=== PATIENT | female | born 1965 | race Caucasian/White ===

== ENCOUNTER 2020-09-16 10:45 | Emergency (ER) | payer MEDICAID, SELFPAY ==
[2020-09-16 10:57] VITALS: BP 155/89; PULSE 83; RESP 17; TEMP 36.4; O2SAT 98; BMI 38.2
--- NOTE | 2020-09-16 10:58 | ED.BACK ---
HPI - Back Pain/Injury General Chief Complaint: Back Pain/Injury Stated Complaint: BACK PAIN Time Seen by Provider: 09/16/20 10:56 Source: patient Mode of arrival: ambulatory Limitations: no limitations History of Present Illness HPI Narrative: PATIENT PRESENTS TO THE ED FOR LOWER BACK PAIN EXACERBATION. PATIENT STATES HISTORY OF BACK ARTHRITIS. PATIENT DENIES ANY RECENT TRAUMA. PATIENT STATES NO URINARY OR BOWEL INCONTINENCE. PATIENT DENIES ANY ABDOMINAL PAIN, NAUSEA, VOMITING, FEVER, CHILLS, FLANK PAIN, DYSURIA, OR HEMATURIA. PATIENT STATES SHE IS ALREADY ON TYLENOL, TRAMADOL, AND LIDOCAINE PATCH FOR HER BACK PAIN RELIEF. PATIENT STATES SHE HAS A REFERRAL TO PAIN MANAGEMENT BUT NEVER FOLLOWED UP. Related Data Allergies Allergy/AdvReac Type Severity Reaction Status Date / Time No Known Allergies Allergy Verified 09/16/20 11:00 [No Known Allergies*] Pt states no food/mdication Allergy Unknown Unknown Uncoded 09/16/20 11:00 al Review of Systems Review of Systems: Yes all other systems are reviewed and are negative Constitutional: Constitutional: Reports as per HPI and Reports no additional constitutional complaints Eyes: Eyes: Reports as per HPI and Reports no additional eye complaints ENT: Reports system reviewed and no additional complaints, except as documented and Reports as per HPI Cardiovascular: Cardiovascular: Reports as per HPI and Reports no additional cardiovascular complaints Respiratory: Respiratory: Reports as per HPI and Reports no additional respiratory complaints Gastrointestinal: Gastrointestinal: Reports as per HPI and Reports no additional gastrointestinal complaints Musculoskeletal: Musculoskeletal: Reports no additional musculoskeletal complaints, Reports as per HPI and Reports back pain Neurologic: Reports system reviewed and no additional complaints, except as documented and Reports as per HPI Psychiatric: Psychiatric: Reports no additional psychiatric complaints and Reports as per HPI [facility] Past Medical History Medical History (Updated 09/16/20 @ 11:[address]) Arthritis Asthma Social History Social History Advance Directives: No Advance Directives Information Provided: No Physical Exam Vital Signs: Vital Signs: Vital Signs Temp Pulse Resp BP Pulse Ox 09/16/20 10:57 97.6 F 83 17 155/89 H 98 Body Mass Index 38.2 Const: General: cooperative, healthy appearing, comfortable, no acute distress, well developed, alert, awake and Physically active Orientation/consciousness: patient oriented x3 HENMT: Head: Yes normal to inspection Eyes: General: appearance normal, both eyes and all related structures Neck: Neck: Yes normal visual inspection, Yes full ROM, Yes no lymphadenopathy and Yes no meningeal signs Chest: Chest palpation & inspection: normal inspection of the chest, normal palpation of entire chest wall and no localized rib tenderness Resp: Effort & Inspection: normal respiratory effort, able to speak in complete sentences, normal respiratory pattern, no audible wheezes, no cough, respiratory effort not decreased, no grunting, not labored, no nasal flaring and no paradoxical thoraco-abdom movements Auscultation: clear to auscultation bilaterally, no crackles, no rales, no rhonchi, no wheezes and breath sounds present Percussion: percussion normal Cardio: Jugular venous distension: no JVD Heart sounds: S1 normal heart sound present and S2 normal heart sound present GI: Inspection: Yes normal to inspection, No abdominal wall ecchymosis and No Abdominal wall edema Palpation (GI): Soft to palpation, not firm, nontender, no guarding and not rigid : General: No CVA tenderness and Yes no CVA tenderness Back/Spine/Pelvis: Back: no CVA tenderness, No CVA tenderness and back tenderness (lumbar tenderness.) Skin: General skin exam: no rashes or lesions noted Neuro: General: patient oriented x3, gait normal, no meningeal signs and CN's II-XI intact bilaterally Cranial nerves: Yes CN's II-XII intact bilaterally Extrem: General: Yes normal to inspection and Yes full ROM Psych: Appearance: grossly normal, well kempt and not disheveled Course Course Course Narrative: NO NEED FOR IMAGING. PATIENT HAS CHRONIC BACK PAIN. NEGATIVE FOR ANY RECENT TRAUMA. HISTORY PHYSICAL EXAM DOES NOT INDICATE URINARY/ BOWEL INCONTINENCE. PATIENT WILL BE GIVEN PAIN MEDICATION. Reevaluation(s) Reevaluation #1: PATIENT GIVEN TORADOL INJECTION. PATIENT WOULD NOT BE DISCHARGED WITH ANY OTHER PAIN MEDS. PATIENT INFORMED TO FOLLOW-UP WITH A REFERRAL TO PAIN MANAGEMENT. Patient already has tylenol, monthly tramadol, and lidocaine patch at home. Time: 11:03 MDM - Back Pain/Injury MDM Narrative Medical decision making narrative: CHRONIC BACK PAIN EXACERBATION Discharge Plan Discharge Clinical Impression: Lumbar radiculopathy Patient Disposition: Elopement Instructions: Lumbar Radiculopathy (ED) Additional Instructions: RETURN TO THE ED FOR ANY HEADACHE, NAUSEA, VOMITING, DYSURIA, HEMATURIA, FLANK PAIN, FEVER, CHILLS, URINARY / BOWEL INCONTINENCE, PARALYSIS OF LOWER EXTREMITIES, OR ANY OTHER CONCERNING SYMPTOMS. Tylenol/tramadol, and lidocaine patch as prescribed. Please follow-up with your referral to pain management. Referrals: Naty Warner NP [Primary Care Provider] - 2 days ( Chronic back pain exacerbation. Patient already on Tylenol, tramadol, lidocaine patch. Recommend referral to pain management clinic) Interventions: ED Discharge Assessment Last Done: 09/16/20 11:22 Discharge Date/Time: 09/16/20 11:22 Print Language: Yoruba
[2020-09-16] MEDS: Ketorolac Tromethamine 60 MG/2 ML VIAL IM (11:03)
== END 2020-09-16 11:22 | disposition left against medical advice (07) ==
PROVIDERS: Emergency Provider Emergency Medicine; PCP Nurse Practitioner Family
DX: M54.16 Radiculopathy, lumbar region (principal); M54.5 Low back pain
CPT/HCPCS: 96372; 99283; 99284; J1885

== ENCOUNTER 2020-10-18 09:33 | Outpatient (REF) | payer MEDICAID, SELFPAY ==
[2020-10-18 10:07] LABS: MANUAL DIFF FLAG NO
[2020-10-18 10:18] LABS: Basophils Percent Auto 0.4 % (0-2); Eosinophils Absolute Auto 0.2 X10*3/uL (0.0-0.4); Eosinophils Percent Auto 2.8 % (0-4); Hematocrit 38.2 % (37-47); Imm Gran Abs Auto 0.03 X10*3/uL (0.00-0.03); Imm Gran Pct Auto 0.4 % (0.0-0.4); Lymphocytes Absolute Auto 2.7 X10*3/uL (1.2-4.9); Lymphocytes Percent Auto 38.8 % (20-40); Mean Corpuscular Hemoglobin 31.3 pg (27.0-33.0); Mean Corpuscular Volume 91.8 fL (80-98); Monocytes Absolute Auto 0.8 X10*3/uL (0.1-1.2); Monocytes Percent Auto 11.9 % (2-11); Neutrophils Absolute Auto 3.2 X10*3/uL (2.0-8.3); Neutrophils Percent Auto 45.7 % (45-73); Platelet Count 253 X10*3/uL (160-400); Red Blood Count 4.16 X10*6/uL (4.20-5.50); Red Cell Distribution Width 12.4 % (11.0-16.0); White Blood Count 7.1 X10*3/uL (4.8-10.8)
[2020-10-18 10:30] LABS: Estimated Average Glucose 120 mg/dL; Hemoglobin A1c % 5.8 %
[2020-10-18 11:08] LABS: Alanine Aminotransferase 16 U/L (0-31); Albumin Level 4.2 g/dL (3.5-5.0); Alkaline Phosphatase 68 U/L (39-117); Anion Gap 9 (12-20); Aspartate Amino Transferase 23 U/L (5-31); Bilirubin Total 0.5 mg/dL (0.0-1.0); Blood Urea Nitrogen 17 mg/dL (9-16); C Reactive Protein 0.29 mg/dL (< or = 0.50); Calcium 9.4 mg/dL (8.4-10.2); Carbon Dioxide 33 mmol/L (22-29); Chloride 101 mmol/L (96-108); Cholesterol 213 mg/dL; Estimated Glomerular Filt Rate > 60; Glucose Random 122 mg/dL (60-115); HDL Cholesterol 42 mg/dL; LDL Cholesterol Calculated 138 mg/dl; Potassium 4.2 mmol/l (3.3-5.1); Sodium 139 mmol/L (135-145); Total Protein 7.1 g/dL (6.5-8.0); Triglycerides 166 mg/dL
[2020-10-18 11:12] LABS: Thyroid Stimulating Hormone 0.95 uIU/mL (0.32-4.0); Vitamin D 25-OH Total 23.3 ng/mL (>30)
[2020-10-18 11:30] LABS: Vitamin B12 222 pg/mL (200-900)
[2020-10-18 12:13] LABS: Creatinine Urine 131.04 mg/dL; Microalbum/Creatinine Ratio Ur 7.6 ug/mg cr
== END 2020-10-18 09:34 | disposition home or self-care (01) ==
LOC: HO.LAB 09:33
PROVIDERS: PCP Nurse Practitioner Family; Visit Provider Nurse Practitioner Family
DX: E03.9 Hypothyroidism, unspecified (principal); E11.9 Type 2 diabetes mellitus without complications; E78.00 Pure hypercholesterolemia, unspecified; I10 Essential (primary) hypertension; M05.70 Rheumatoid arthritis with rheumatoid factor of unspecified site without organ or systems involvement; R12 Heartburn
CPT/HCPCS: 36415; 80053; 80061; 82043; 82306; 82607; 83036; 84443; 85025; 86140

== ENCOUNTER 2021-04-07 19:35 | Emergency (ER) | payer MEDICAID, SELFPAY ==
--- NOTE | 2021-04-07 19:36 | ED.ALCOHOL ---
HPI - Alcohol General Chief Complaint: Psychiatric Symptoms Stated Complaint: ETOH Time Seen by Provider: 04/07/21 19:46 Source: patient, EMS and litigation partner Mode of arrival: EMS Limitations: other (ETOH intoxication) History of Present Illness HPI narrative: ETOH tonight, drank a lot of vodka could not stand, patient now suicidal in ED and upset MD complaint: alcohol intoxication Last drink: Just prior to admission Chronic alcohol use: No Previous visits for alcohol intoxication: No Recent trauma: No Associated symptoms: nausea Treatments prior to arrival: none Related Data Allergies Allergy/AdvReac Type Severity Reaction Status Date / Time No Known Allergies Allergy Verified 04/07/21 19:53 [No Known Allergies*] Pt states no food/mdication Allergy Unknown Unknown Uncoded 09/16/20 11:00 al Review of Systems Review of Systems: ROS unable to be obtained due to altered mental status PMFSH Past Medical History Attestation statement: The following information was validated with the patient. Medical History Arthritis Asthma Social History Social History (Updated 04/07/21 @ 19:56 by Shannan Tam DO) Alcohol intake: never Smoking Status: Never smoker Advance Directives: No Advance Directives Information Provided: Yes Physical Exam Vital Signs: Vital Signs: Last Vital Signs Pulse 72 04/07/21 19:42 Resp 20 04/07/21 19:42 BP 118/80 04/07/21 19:42 Pulse Ox 97 04/07/21 19:42 Body Mass Index 32.8 Appearance: Alert. Oriented X3. No acute distress. ETOH odor, slurred speech, crying Eyes: Pupils equal, round and reactive to light. ENT: Pharynx normal. Neck: Normal inspection. Neck supple. CVS: Normal heart rate and rhythm. Pulses normal. Respiratory: No respiratory distress. Breath sounds normal. Abdomen: Soft and nontender. Skin: Skin warm and dry. Normal skin color. Normal skin turgor. Extremities: No lower extremity edema. No calf ttp Neuro: Oriented X 3. No motor deficit. No sensory deficit. Psych: tearful, SI Course Course Course Narrative: Physician observation started at 1114pm Patient placed in physician observation because the patient needed more time for clinical sobriety and possible BHN evaluation if she remains suicidal when sober. At the time observation was started the patient's vitals were stable, patient is alert and oriented calm at this time, Neuro: nonfocal, CV RRR, Lungs clear Physician observation ended at 1241am Patient more sober, adamantly denies SI, family aware no concerns, patient has no prior attempts likely related to ETOH, the patient is currently embarrassed right now. Plan is to follow up with therapist tomorrow. NAD, lungs clear, CV RRR, Abd nontender, Neuro intact. Disposition is for home. MDM - Alcohol MDM Narrative Medical decision making narrative: 55 yo female with ETOH tonight now c/o depression and SI - will obtain labs, BHN consult but suspect that this is mostly ETOH driven Lab Data Result diagrams: 04/07/21 20:50 04/07/21 20:50 Labs: Lab Results 04/07/21 04/07/21 04/07/21 Range/Units 20:50 20:50 20:50 WBC 8.2 (4.8-10.8) X10*3/uL RBC 4.01 L (4.20-5.50) X10*6/uL Hgb 12.6 (12.0-16.0) g/dl Hct 36.4 L (37-47) % MCV 90.8 (80-98) fL MCH 31.4 (27.0-33.0) pg MCHC 34.6 (31.0-35.0) g/dl RDW 12.8 (11.0-16.0) % Plt Count 246 (160-400) X10*3/uL MPV 10.6 (9.4-12.3) fL Immature Gran % (Auto) 0.4 (0.0-0.4) % Neut % (Auto) 47.2 (45-73) % Lymph % (Auto) 39.8 (20-40) % [place] % (Auto) 8.1 (2-11) % Eos % (Auto) 4.1 H (0-4) % Baso % (Auto) 0.4 (0-2) % Lymph # (Auto) 3.3 (1.2-4.9) X10*3/uL [place] # (Auto) 0.7 (0.1-1.2) X10*3/uL Eos # (Auto) 0.3 (0.0-0.4) X10*3/uL Baso # (Auto) 0.0 (0.0-0.2) X10*3/uL Abs Immat Gran (auto) 0.03 (0.00-0.03) X10*3/uL Absolute Neuts (auto) 3.9 (2.0-8.3) X10*3/uL Absolute Nucleated RBC 0.000 (0.0-0.012) X10*3/uL Nucleated RBC % (auto) 0.0 (0.0-0.2) /100WBC Sodium 134 L (135-145) mmol/L Potassium 3.4 (3.3-5.1) mmol/L Chloride 98 (96-108) mmol/L Carbon Dioxide 22 (22-29) mmol/L Anion Gap 17 (12-20) BUN 11 (9-16) mg/dL Creatinine 0.75 (0.5-1.4) mg/dL Estim Creat Clear Calc 101.4 Estimated GFR > 60 Random Glucose 155 H (60-115) mg/dL Calcium 8.9 (8.4-10.2) mg/dL Urine Opiates Screen (Not Detect) Ur Barbiturates Screen (Not Detect) Ur Phencyclidine Scrn (Not Detect) Ur Amphetamines Screen (Not Detect) U Benzodiazepines Scrn (Not Detect) Urine Cocaine Screen (Not Detect) U Marijuana (THC) Screen (Not Detect) Ethyl Alcohol 254 mg/dL COVID-19 (JUAN) (Negative) COVID-19 Clin Com 04/07/21 04/07/21 Range/Units 20:57 23:33 WBC (4.8-10.8) X10*3/uL RBC (4.20-5.50) X10*6/uL Hgb (12.0-16.0) g/dl Hct (37-47) % MCV (80-98) fL MCH (27.0-33.0) pg MCHC (31.0-35.0) g/dl RDW (11.0-16.0) % Plt Count (160-400) X10*3/uL MPV (9.4-12.3) fL Immature Gran % (Auto) (0.0-0.4) % Neut % (Auto) (45-73) % Lymph % (Auto) (20-40) % [place] % (Auto) (2-11) % Eos % (Auto) (0-4) % Baso % (Auto) (0-2) % Lymph # (Auto) (1.2-4.9) X10*3/uL [place] # (Auto) (0.1-1.2) X10*3/uL Eos # (Auto) (0.0-0.4) X10*3/uL Baso # (Auto) (0.0-0.2) X10*3/uL Abs Immat Gran (auto) (0.00-0.03) X10*3/uL Absolute Neuts (auto) (2.0-8.3) X10*3/uL Absolute Nucleated RBC (0.0-0.012) X10*3/uL Nucleated RBC % (auto) (0.0-0.2) /100WBC Sodium (135-145) mmol/L Potassium (3.3-5.1) mmol/L Chloride (96-108) mmol/L Carbon Dioxide (22-29) mmol/L Anion Gap (12-20) BUN (9-16) mg/dL Creatinine (0.5-1.4) mg/dL Estim Creat Clear Calc Estimated GFR Random Glucose (60-115) mg/dL Calcium (8.4-10.2) mg/dL Urine Opiates Screen Not Detected (Not Detect) Ur Barbiturates Screen Not Detected (Not Detect) Ur Phencyclidine Scrn Not Detected (Not Detect) Ur Amphetamines Screen Not Detected (Not Detect) U Benzodiazepines Scrn Not Detected (Not Detect) Urine Cocaine Screen Not Detected (Not Detect) U Marijuana (THC) Screen Not Detected (Not Detect) Ethyl Alcohol mg/dL COVID-19 (JUAN) Negative (Negative) COVID-19 Clin Com See Note Discharge Plan Discharge Clinical Impression: Alcohol intoxication Patient Disposition: Home, Self-Care Instructions: Abuse of Alcohol (ED) Additional Instructions: return to ED for any worsening symptoms or concerns Print Language: Slovenian
[2021-04-07 19:42] VITALS: BP 118/80; PULSE 72; RESP 20; O2SAT 97; BMI 32.8
--- NOTE | 2021-04-07 20:53 | PC.NURSE ---
RN was able to successfully obtain required/ordered labs without issue. rn remains at bedside for continued obs
[2021-04-07 21:05] LABS: MANUAL DIFF FLAG NO
[2021-04-07 21:06] LABS: Basophils Percent Auto 0.4 % (0-2); Eosinophils Absolute Auto 0.3 X10*3/uL (0.0-0.4); Eosinophils Percent Auto 4.1 % (0-4); Hematocrit 36.4 % (37-47); Hemoglobin 12.6 g/dl (12.0-16.0); Imm Gran Abs Auto 0.03 X10*3/uL (0.00-0.03); Imm Gran Pct Auto 0.4 % (0.0-0.4); Lymphocytes Absolute Auto 3.3 X10*3/uL (1.2-4.9); Lymphocytes Percent Auto 39.8 % (20-40); Mean Corpuscular HGB Conc 34.6 g/dl (31.0-35.0); Mean Corpuscular Hemoglobin 31.4 pg (27.0-33.0); Mean Corpuscular Volume 90.8 fL (80-98); Mean Platelet Volume 10.6 fL (9.4-12.3); Monocytes Absolute Auto 0.7 X10*3/uL (0.1-1.2); Monocytes Percent Auto 8.1 % (2-11); Neutrophils Absolute Auto 3.9 X10*3/uL (2.0-8.3); Neutrophils Percent Auto 47.2 % (45-73); Platelet Count 246 X10*3/uL (160-400); Red Blood Count 4.01 X10*6/uL (4.20-5.50); Red Cell Distribution Width 12.8 % (11.0-16.0); White Blood Count 8.2 X10*3/uL (4.8-10.8)
[2021-04-07 21:34] LABS: COVID-19 Test Negative (Negative); IDNOW Serial# 9DD0AD1C
[2021-04-07 21:37] LABS: Ethanol 254 mg/dL
[2021-04-07 21:39] LABS: Anion Gap 17 (12-20); Blood Urea Nitrogen 11 mg/dL (9-16); Calcium 8.9 mg/dL (8.4-10.2); Carbon Dioxide 22 mmol/L (22-29); Chloride 98 mmol/L (96-108); Creatinine Clr Calc Pharmacy 101.4; Estimated Glomerular Filt Rate > 60; Glucose Random 155 mg/dL (60-115); Potassium 3.4 mmol/L (3.3-5.1); Sodium 134 mmol/L (135-145)
[2021-04-08 00:36] LABS: Amphetamine Screen Urine Not Detected (Not Detect); Barbiturates, Urine Not Detected (Not Detect); Benzodiazepines Screen Urine Not Detected (Not Detect); Cannabinoid Screen Urine Not Detected (Not Detect); Cocaine Screen Urine Not Detected (Not Detect); Opiate Screen Urine Not Detected (Not Detect); Phencyclidine Screen Urine Not Detected (Not Detect)
--- NOTE | 2021-04-08 00:41 | PC.NURSE ---
Pt requesting to go home despite multiple attempts at education from this RN. Pt advised that due to her initial SI statements she is unable to just walk out or sign herself out without MD approval. Pt states that she feels fine and wants to go home. this RN notifed MD Tam. This RN spoke with the patient's daughter zunilda per MD request to determine patient's history and bh background. Pt's daughter confirmed that the pt does not have a SI/HI background although she confirms that she believes the patient sees a therapist regularly. Rn to bedside with staff nurse anesthetist and pt declined SI/HI and reported feel safe at home. MD tam agreeable to discarge home as daughter agreeable to pick pulling machine operator the patient ot provide her a sober ride home.
[2021-04-08 00:51] VITALS: BP 140/78; PULSE 68; RESP 18; TEMP 37.2; O2SAT 100
== END 2021-04-08 01:05 | disposition home or self-care (01) ==
PROVIDERS: Emergency Provider Emergency Medicine
DX: F10.129 Alcohol abuse with intoxication, unspecified (principal); Y90.8 Blood alcohol level of 240 mg/100 ml or more; Z20.822 Contact with and (suspected) exposure to COVID-19; Z79.899 Other long term (current) drug therapy; Z71.41 Alcohol abuse counseling and surveillance of alcoholic
CPT/HCPCS: 36415; 80048; 80307; 80320; 85025; 87635; 99284

== ENCOUNTER 2021-05-30 20:12 | Emergency (ER) | payer MEDICAID, SELFPAY ==
[2021-05-30 20:28] VITALS: BP 139/75; PULSE 70; RESP 18; TEMP 36.8; O2SAT 99; BMI 38.2
--- NOTE | 2021-05-30 22:47 | ED.EXTPRO ---
HPI - Extremity Problem General Chief complaint: Extremity Problem Stated complaint: Left arm pain Time Seen by Provider: 05/30/21 22:47 Source: patient and installers mechanical Mode of arrival: ambulatory History of Present Illness HPI Narrative: 55-year-old female with history arthritis and carpal tunnel presents with pain starting at the left base of her neck and extending across the left shoulder with stated numbness, tingling into the left upper extremity. Patient denies any recent travel, shortness of breath, chest pain/palpitations, recent cough or sore throat. Related Data Previous Rx's Medication Instructions Recorded cyclobenzaprine 5 mg PO BEDTIME PRN #3 tab 05/31/21 Allergies Allergy/AdvReac Type Severity Reaction Status Date / Time No Known Allergies Allergy Verified 04/07/21 19:53 [No Known Allergies*] Pt states no food/mdication Allergy Unknown Unknown Uncoded 09/16/20 11:00 al Review of Systems Review of Systems: Pertinent positives and negatives as stated in HPI 10 point review of systems is otherwise negative. [facility] Past Medical History Source: nursing notes reviewed Medical History Arthritis Asthma Social History Social History Alcohol intake: never Advance Directives: No Advance Directives Information Provided: Yes Patient : No Physical Exam Vital Signs: Vital Signs: Last Vital Signs Temp 98.3 F 05/30/21 20:28 Pulse 70 05/30/21 20:28 Resp 18 05/30/21 20:28 BP 139/75 05/30/21 20:28 Pulse Ox 99 05/30/21 20:28 Body Mass Index 38.2 VITAL SIGNS: Reviewed. GENERAL: Well developed, well nourished, in no acute distress. HEAD: Normocephalic/atraumatic EYES: PERRLA, EOMI OROPHARYNX: no oral lesions noted, posterior pharynx clear NECK: Supple, no adenopathy, Spurling's positive, noted muscle spasm along left neck base extending into left trapezius LUNGS: Normal breath sounds. No adventitious sounds or accessory muscle use. SpO2<99> CARDIOVASCULAR: Regular rate and rhythm without noted murmurs ABDOMEN: Soft, non-tender, non-distended with bowel sounds. No rigidity. No guarding. No palpable masses or hernias noted Left upper extremity: Full range of motion noted at the shoulder, elbow, wrist, sensation is fully intact, hand salt washer 5/5, capillary refill less than 3 seconds, palpable radial/ulnar pulses SKIN: Inspection of the skin reveals no rashes NEUROLOGIC: Alert and oriented x 4. Strength and sensation to light touch were grossly intact x 4. Course Course Course Narrative: 55-year-old female with history and clinical presentation most consistent with cervical radiculopathy and no clinical suspicion for PE, cardiopulmonary etiology. On re-evaluation patient has had good improvement of her symptoms and will be discharged home in stable condition with instructions to follow up her primary care provider and discuss possible physical therapy. Discharge Plan Discharge Clinical Impression: Cervical radiculopathy, Muscle spasm Patient Disposition: Home, Self-Care Instructions: Cervical Radiculopathy (ED), Muscle Spasm (ED) Additional Instructions: 1. Tylenol 1000 mg, por v?a oral, cada 6 horas seg?n sea necesario para controlar el dolor. No exceda los 4000 mg en 24 horas. 2. Ibuprofeno 400 mg, por v?a oral con leche o alimentos, cada 6 horas seg?n sea necesario para controlar el dolor. Recomiende usar esto en combinaci?n con Tylenol para un mayor alivio de los s?ntomas. 3. Recomiende el uso de parches de lidoca?na, estos est?n disponibles en todos los [facility] / [facility] / [facility], apl?quelos en el ?solomon de m?xima sensibilidad andrew se indica en el empaque exterior. 4. Allen un seguimiento con palacio proveedor de atenci?n primaria en los pr?ximos 2-3 d?as para elijah reevaluaci?n y un tratamiento ambulatorio adicional. Regrese a la jennifer de emergencias si los s?ntomas empeoran. Prescriptions: New cyclobenzaprine 5 mg tablet 5 mg PO BEDTIME PRN (Reason: muscle spasm) Qty: 3 RF: 0 Referrals: Physician,Unknown [Primary Care Provider] - 2 days Print Language: Greek
[2021-05-30] MEDS: Lidocaine 4 % Patch ADH..PATCH 1 PATCH TRANSDERMA (23:28)
[2021-05-30] MEDS: Ketorolac Tromethamine 15 MG/ML VIAL IM (23:29)
[2021-05-30] MEDS: Acetaminophen 325 MG TABLET 975 MG PO (23:29)
[2021-05-30] MEDS: Cyclobenzaprine HCl 5 MG TABLET PO (23:29)
== END 2021-05-31 00:46 | disposition home or self-care (01) ==
PROVIDERS: Emergency Provider Student in an Organized Health Care Education/Training Program
DX: M54.12 Radiculopathy, cervical region (principal); M62.838 Other muscle spasm
CPT/HCPCS: 96372; 99283; 99284; J1885

== ENCOUNTER 2021-08-31 08:33 | Outpatient (REF) | payer MEDICAID, SELFPAY ==
--- NOTE | ~2021-08-31 | MM_ITS ---
EXAMINATION: MM SCREENING DIGITAL BREAST TOMOSYNTHESIS, BILATERAL CLINICAL INFORMATION: Screening. Asymptomatic. The lifetime risk of breast cancer based on the Tyrer-Cuzick Model is 6%. COMPARISON: Mammography: 03/09/2018, 02/18/2017, 09/04/2015 TECHNIQUE: Digital breast tomosynthesis is performed in both the craniocaudal and mediolateral oblique views along with computer-aided detection (CAD). Synthesized 2D images are generated from the tomosynthesis. FINDINGS: There are scattered areas of fibroglandular density (ACR BI-RADS breast composition Category b). Parenchymal pattern is similar to prior exams. There are no significant masses, abnormal calcifications, or other abnormalities. There is no developing density or architectural abnormality. No abnormal calcifications. No significant changes. MM/MM tomosynthesis screening BI IMPRESSION: No mammographic evidence of malignancy. ASSESSMENT: BI-RADS 1: Negative RECOMMENDATION: Routine annual mammography screening. This patient's information was entered into a reminder system with a target due date for their next mammogram.
== END 2021-08-31 08:34 | disposition home or self-care (01) ==
LOC: HO.MAMMO 08:33
PROVIDERS: PCP Internal Medicine; Visit Provider Internal Medicine
DX: Z12.31 Encounter for screening mammogram for malignant neoplasm of breast (principal)
CPT/HCPCS: 77063; 77067

== ENCOUNTER 2021-09-24 10:28 | Emergency (ER) | payer MEDICAID, SELFPAY ==
[2021-09-24 11:33] VITALS: BP 138/76; PULSE 74; RESP 16; TEMP 36.1; O2SAT 99; BMI 38.2
--- NOTE | 2021-09-24 13:13 | ED.EXTPRO ---
HPI - Extremity Problem General Chief complaint: Extremity Injury, Upper Stated complaint: lt arm pain Time Seen by Provider: 09/24/21 13:13 History of Present Illness HPI Narrative: Patient with history of chronic neck pain complains of flare up of left-sided neck pain radiating to left arm similar to prior, there is no weakness no new injury no fever Related Data Previous Rx's Medication Instructions Recorded cyclobenzaprine 5 mg tablet 5 mg PO BEDTIME PRN #3 tab 05/31/21 oxycodone 5 mg tablet 5 mg PO Q6H PRN #10 tab 09/24/21 Allergies Allergy/AdvReac Type Severity Reaction Status Date / Time No Known Allergies Allergy Verified 04/07/21 19:53 [No Known Allergies*] Pt states no food/mdication Allergy Unknown Unknown Uncoded 09/16/20 11:00 al Review of Systems Review of Systems: Positive for neck pain Negatives are no fever no chills no dizziness or weakness no headache no chest pain no shortness of breath no abdominal pain no changes to bowel or bladder no numbness or weakness Yes all other systems are reviewed and are negative [facility] Past Medical History Source: nursing notes reviewed Medical History Arthritis Asthma Social History Social History Alcohol intake: never Advance Directives: No Physical Exam Vital Signs: Vital Signs: Last Vital Signs Temp 96.9 F 09/24/21 11:33 Pulse 74 09/24/21 11:33 Resp 18 09/24/21 13:30 BP 138/76 09/24/21 11:33 Pulse Ox 99 09/24/21 11:33 Body Mass Index 38.2 General appearance no acute distress Head is normocephalic atraumatic The left side of the neck had soft tissue paraspinal tenderness there is no bony tenderness there is good range of motion in the head and the neck and there was tenderness in the trapezius Chest is clear to auscultation bilateral The heart no murmur Extremities full range of motion x4 including left shoulder and left arm The left arm was neurovascular intact with a normal symmetric pulse and normal color Neuro no focal motor sensory deficits Course Course Course Narrative: Chronic pain patient was a script for tramadol and requested a short course of oxycodone was informed that if he has a contract this might undo her contract I did write for 10 oxycodone but strongly advised her to call her primary doctor and if he approves she will fill the prescription and she agreed if he does not want her to get it she will not fill the prescription Exam did not reveal any gross deficit of sensation or motor strength and she was discharged Discharge Plan Discharge Clinical Impression: Cervical radiculopathy Patient Disposition: Home, Self-Care Additional Instructions: I wrote a prescription for oxycodone as her tramadol is not sufficient for this pain in your neck But very important because you have a contract with her doctor you need to call the primary doctor before filling the oxycodone prescription or he may cancel your contract for narcotics Return any time if worse Follow with primary doctor Prescriptions: New oxycodone 5 mg tablet 5 mg PO Q6H PRN (Reason: pain) Qty: 10 RF: 0 No Action cyclobenzaprine 5 mg tablet 5 mg PO BEDTIME PRN (Reason: muscle spasm) Qty: 3 RF: 0 Interventions: ED Discharge Assessment Last Done: 09/24/21 13:31 Discharge Date/Time: 09/24/21 13:38
[2021-09-24] MEDS: Ketorolac Tromethamine 15 MG/ML VIAL 30 MG IM (13:28)
[2021-09-24 13:30] VITALS: RESP 18
== END 2021-09-24 13:38 | disposition home or self-care (01) ==
PROVIDERS: Emergency Provider Emergency Medicine; PCP Internal Medicine
DX: M54.12 Radiculopathy, cervical region (principal); M54.2 Cervicalgia; G89.29 Other chronic pain; Z79.891 Long term (current) use of opiate analgesic
CPT/HCPCS: 96372; 99283; 99284; J1885

== ENCOUNTER 2021-09-26 00:43 | Emergency (ER) | payer MEDICAID, SELFPAY ==
--- NOTE | 2021-09-26 | ECG_ITS ---
Test Reason : cp Blood Pressure : / mmHG Vent. Rate : 065 BPM Atrial Rate : 065 BPM P-R Int : 166 ms QRS Dur : 104 ms QT Int : 412 ms P-R-T Axes : 028 -19 015 degrees QTc Int : 428 ms Normal sinus rhythm RSR' or QR pattern in V1 suggests right ventricular conduction delay Nonspecific T wave abnormality Anterior leads Abnormal ECG When compared with ECG of 08-APR-2018 02:32, Nonspecific T wave abnormality now evident in Anterior leads Referred By: Generic ED Physician Electronically Signed By:CARITO PALOMARES MD
--- NOTE | ~2021-09-26 | XR_ITS ---
EXAMINATION: XR CHEST CLINICAL INFORMATION: Chest wall pain COMPARISON: 10/30/2014 TECHNIQUE: 2 views of the chest were obtained. FINDINGS: Lung volumes are low. Central vascular prominence without overt edema. No dense consolidation. No effusion. No pneumothorax. The cardiomediastinal silhouette is within normal limits. No acute osseous abnormality. XR/XR chest 2V IMPRESSION: No consolidation. Central vascular prominence without overt edema.
[2021-09-26 02:20] VITALS: BP 148/68; PULSE 73; RESP 18; TEMP 36.8; O2SAT 99; BMI 38.3
--- NOTE | 2021-09-26 03:54 | ED.GENADULT ---
HPI - General Adult General Chief complaint: General Medical Stated complaint: back and chest pain Time Seen by Provider: 09/26/21 03:54 Source: patient and diplomatic interpreter/translator Mode of arrival: ambulatory History of Present Illness HPI narrative: 55-year-old female without significant past medical history who presents with left shoulder pain that radiates up into the left neck that has not been associated with a traumatic event, fevers, chills, cardiac type chest pain. In addition, patient denies any shortness of breath, new cough, recent travel and states this is been ongoing for weeks. Related Data Previous Rx's Medication Instructions Recorded cyclobenzaprine 5 mg tablet 5 mg PO BEDTIME PRN #3 tab 05/31/21 oxycodone 5 mg tablet 5 mg PO Q6H PRN #10 tab 09/24/21 Allergies Allergy/AdvReac Type Severity Reaction Status Date / Time No Known Allergies Allergy Verified 09/26/21 02:11 [No Known Allergies*] Pt states no food/mdication Allergy Unknown Unknown Uncoded 09/26/21 02:11 al Review of Systems Review of Systems: For positives and negatives as stated in HPI 10 point review of systems is otherwise negative. PMFSH Past Medical History Source: nursing notes reviewed Medical History Arthritis Asthma Social History Social History Alcohol intake: never Advance Directives: No Advance Directives Information Provided: Yes Physical Exam Vital Signs: Vital Signs: Last Vital Signs Temp 98.3 F 09/26/21 02:20 Pulse 73 09/26/21 02:20 Resp 18 09/26/21 02:20 BP 148/68 H 09/26/21 02:20 Pulse Ox 99 09/26/21 02:20 Body Mass Index 38.3 VITAL SIGNS: Reviewed. GENERAL: Well developed, well nourished, in no acute distress. HEAD: Normocephalic/atraumatic EYES: PERRLA, EOMI OROPHARYNX: no oral lesions noted, posterior pharynx clear NECK: Supple, no adenopathy LUNGS: Normal breath sounds. No adventitious sounds or accessory muscle use. SpO2<99> CARDIOVASCULAR: Regular rate and rhythm without noted murmurs ABDOMEN: Soft, non-tender, non-distended with bowel sounds. LEFT UPPER EXTREMITY: No deformities noted, neurovascular is intact, full range of motion at shoulder/elbow/wrist, capillary refill less than 3 seconds, noted muscle spasm across left shoulder and into neck but Spurling's negative SKIN: Inspection of the skin reveals no rashes NEUROLOGIC: Alert and oriented x 4. Strength and sensation to light touch were grossly intact x 4. Course Course Course Narrative: 55-year-old female with history and clinical presentation consistent with musculoskeletal with likely muscle spasm contributing to patient's symptoms. And on review of all investigations there are no acute findings to suggest cardiopulmonary etiology on reassessment after patient received combination analgesics and lidocaine patch patient endorses that she does feel somewhat better and is agreeable to follow-up with her primary care provider for for re-evaluation and further outpatient management. Medical Decision Making Lab Data Labs: Lab Results 09/26/21 Range/Units 04:19 Troponin I High Sens < 3.5 (<3.5-17.0) ng/L Discharge Plan Discharge Clinical Impression: Muscle spasm Patient Disposition: Home, Self-Care Instructions: Muscle Spasm (ED) Additional Instructions: 1. Reanude todos los medicamentos caseros seg?n lo prescrito. 2. Tylenol 1000 mg, por v?a oral, cada 6 horas seg?n sea necesario para controlar el dolor. No exceda los 4000 mg en 24 horas. 3. Ibuprofeno 400 mg, por v?a oral con leche o alimentos, cada 6 horas seg?n sea necesario para controlar el dolor. Puede corrine esto junto con Tylenol para un mayor alivio de los s?ntomas. 4. Parche de lidoca?na, est? disponible sin receta y se puede aplicar en el ?solomon de m?xima sensibilidad andrew se indica en el empaque exterior. Allen un seguimiento con palacio proveedor de atenci?n primaria a primera hora de la ma?daniel. Regrese a la jennifer de emergencias por un empeoramiento namita de los s?ntomas. Prescriptions: No Action cyclobenzaprine 5 mg tablet 5 mg PO BEDTIME PRN (Reason: muscle spasm) Qty: 3 RF: 0 oxycodone 5 mg tablet 5 mg PO Q6H PRN (Reason: pain) Qty: 10 RF: 0 Referrals: [facility] [Primary Care Provider] - 2 days Print Language: Turkmen
[2021-09-26] MEDS: Ketorolac Tromethamine 15 MG/ML VIAL IM (04:08)
[2021-09-26] MEDS: Lidocaine 4 % Patch ADH..PATCH 1 PATCH TRANSDERMA (04:09)
[2021-09-26] MEDS: Acetaminophen 325 MG TABLET 975 MG PO (04:09)
[2021-09-26 05:12] LABS: Troponin-I High Sensitivity < 3.5 ng/L (<3.5-17.0)
== END 2021-09-26 06:09 | disposition home or self-care (01) ==
PROVIDERS: Emergency Provider Student in an Organized Health Care Education/Training Program
DX: M62.838 Other muscle spasm (principal)
CPT/HCPCS: 36415; 71046; 84484; 93005; 96372; 99284; J1885

== ENCOUNTER 2021-10-10 07:12 | Emergency (ER) | payer MEDICAID, SELFPAY ==
[2021-10-10 07:16] VITALS: BP 159/87; PULSE 78; RESP 20; TEMP 36.6; O2SAT 97; BMI 38.2
--- NOTE | 2021-10-10 07:20 | ECG_ITS ---
Test Reason : CHEST PAIN Blood Pressure : / mmHG Vent. Rate : 074 BPM Atrial Rate : 074 BPM P-R Int : 164 ms QRS Dur : 100 ms QT Int : 388 ms P-R-T Axes : 020 -21 029 degrees QTc Int : 430 ms Normal sinus rhythm Incomplete right bundle branch block Left axis deviation Abnormal ECG When compared with ECG of 26-SEP-2021 02:26, No significant change was found Referred By: Generic ED Physician Electronically Signed By:CARITO PALOMARES MD
--- NOTE | 2021-10-10 07:45 | ED.CHESTPAIN ---
HPI - Chest Pain General Chief Complaint: Chest Pain Stated Complaint: neck pain Time Seen by Provider: 10/10/21 07:45 Source: patient Mode of arrival: ambulatory Limitations: no limitations History of Present Illness HPI narrative: neck, shoulder, upper chest down the left arm. The patient has had the pain for years. She is here because she could not sleep, she has neck pain with movement. Denies fever, denies recent trauma. Patient with long history of fibromyalgia. patient does not have chest pain this is more shoulder and neck pain. Onset (ago): year(s) Timing of current episode: constant Pain radiation: left arm, neck and left shoulder Severity: mild Quality: aching Related Data Previous Rx's Medication Instructions Recorded cyclobenzaprine 5 mg tablet 5 mg PO BEDTIME PRN #3 tab 05/31/21 oxycodone 5 mg tablet 5 mg PO Q6H PRN #10 tab 09/24/21 cyclobenzaprine 10 mg tablet 10 mg PO TID #10 tab 10/10/21 naproxen 500 mg tablet (Naprosyn) 500 mg PO BID #20 tab 10/10/21 Allergies Allergy/AdvReac Type Severity Reaction Status Date / Time No Known Allergies Allergy Verified 09/26/21 02:11 [No Known Allergies*] Pt states no food/mdication Allergy Unknown Unknown Uncoded 09/26/21 02:11 al Review of Systems Constitutional: Constitutional: Reports no additional constitutional complaints Eyes: Eyes: Reports no additional eye complaints ENT: Denies dizziness Cardiovascular: Cardiovascular: Reports no additional cardiovascular complaints Respiratory: Respiratory: Reports as per HPI Gastrointestinal: Gastrointestinal: Reports no additional gastrointestinal complaints Genitourinary: Genitourinary: Reports no additional female genitourinary complaints Musculoskeletal: Musculoskeletal: Reports no additional musculoskeletal complaints Integumentary/Breasts: Skin/Breast: Denies rash Neurologic: Reports system reviewed and no additional complaints, except as documented, Denies dizziness and Denies Sensory deficit (Neuro) Psychiatric: Psychiatric: Denies anxiety [facility] Past Medical History Medical History Arthritis Asthma Social History Social History Alcohol intake: never Advance Directives: No Patient : No Physical Exam Vital Signs: Vital Signs: Last Vital Signs Temp 98 F 10/10/21 07:16 Pulse 78 10/10/21 07:16 Resp 20 10/10/21 07:16 BP 159/87 H 10/10/21 07:16 Pulse Ox 97 10/10/21 07:16 Body Mass Index 38.2 Const: General: healthy appearing Nutritional Appearance: obese Orientation/consciousness: oriented to person and patient oriented x3 Limitations: no limitations HENMT: Head: Yes normal to inspection Ears: external ears normal General nose exam: Normal external nose present Mouth: Normal oral and palatal mucosa present and oropharynx normal Throat: Yes posterior oropharynx normal Eyes: General: appearance normal, both eyes and all related structures Neck: Other: left trapezius and left sternocleidomastoid tenderness, with some pain with movement Chest: Chest palpation & inspection: normal inspection of the chest Resp: Auscultation: clear to auscultation bilaterally Cardio: Jugular venous distension: no JVD Rate: regular rate Rhythm: regular rhythm Heart sounds: S1 normal heart sound present and S2 normal heart sound present GI: Inspection: Yes normal to inspection Palpation (GI): Soft to palpation, nontender and No hepatosplenomegaly present Auscultation: normal bowel sounds : General: Yes no CVA tenderness Back/Spine/Pelvis: Back: no CVA tenderness Skin: General skin exam: no rashes or lesions noted Neuro: General: oriented to person and patient oriented x3 Cranial nerves: Yes CN's II-XII intact bilaterally Motor exam (neuro): 5/5 motor strength present throughout Sensory Exam: No Sensory deficit (Neuro) Extrem: Other: shoulder and arm with FROM tenderness to the muscles, good radial and ulnar and brachialis tenderness. General: Yes normal to inspection Psych: Appearance: grossly normal Course Reevaluation(s) Reevaluation #1: patient with long history of muscular skeletal pain with restart NSAIDS and flexeril and dc home Time: 07:56 MDM - Chest Pain ECG Data ECG #1: Attestation: I personally reviewed and interpreted this ECG as follows: Interpretation: sinus 75, no st or twave changes Discharge Plan Discharge Clinical Impression: Acute torticollis Chronic shoulder pain Qualifiers: Laterality: left Qualified Code(s): M25.512 - Pain in left shoulder Patient Disposition: Home, Self-Care Instructions: Shoulder Pain (ED), Neck Pain (ED) Prescriptions: New cyclobenzaprine 10 mg tablet 10 mg PO TID Qty: 10 RF: 0 naproxen [Naprosyn] 500 mg tablet 500 mg PO BID Qty: 20 RF: 0 No Action cyclobenzaprine 5 mg tablet 5 mg PO BEDTIME PRN (Reason: muscle spasm) Qty: 3 RF: 0 oxycodone 5 mg tablet 5 mg PO Q6H PRN (Reason: pain) Qty: 10 RF: 0 Referrals: [facility] [Primary Care Provider] - 1 week
[2021-10-10] MEDS: Cyclobenzaprine HCl 10 MG TABLET PO (08:03)
[2021-10-10] MEDS: Ketorolac Tromethamine 60 MG/2 ML VIAL IM (08:03)
== END 2021-10-10 08:43 | disposition home or self-care (01) ==
PROVIDERS: Emergency Provider Emergency Medicine
DX: M43.6 Torticollis (principal); M25.512 Pain in left shoulder; R07.9 Chest pain, unspecified; M54.2 Cervicalgia; M79.7 Fibromyalgia; Z79.899 Other long term (current) drug therapy
CPT/HCPCS: 93005; 96372; 99283; 99284; J1885

== ENCOUNTER 2021-10-11 01:36 | Emergency (ER) | payer MEDICAID, SELFPAY ==
[2021-10-11 01:59] VITALS: BP 160/81; PULSE 81; RESP 20; TEMP 36.7; O2SAT 96; BMI 35.5
--- NOTE | 2021-10-11 02:02 | ED.EXTPRO ---
HPI - Extremity Problem General Chief complaint: Extremity Injury, Upper Stated complaint: shoulder pain from early still consistent Time Seen by Provider: 10/11/21 02:02 Source: patient and family Mode of arrival: ambulatory History of Present Illness HPI Narrative: patient history of fibromyalgia chronic muscular pain for years been seen by different physicians was seen yesterday for same was given Flexeril naproxen patient comes back as pain is still there complaining of pain all over the upper back radiating to the neck unable to sleep no trauma no motor weakness/ paresthesia Related Data Previous Rx's Medication Instructions Recorded cyclobenzaprine 5 mg tablet 5 mg PO BEDTIME PRN #3 tab 05/31/21 oxycodone 5 mg tablet 5 mg PO Q6H PRN #10 tab 09/24/21 cyclobenzaprine 10 mg tablet 10 mg PO TID #10 tab 10/10/21 naproxen 500 mg tablet (Naprosyn) 500 mg PO BID #20 tab 10/10/21 diazepam 5 mg tablet (Valium) 5 mg PO BEDTIME PRN #14 tab 10/11/21 tramadol 50 mg tablet 50 mg PO Q6H PRN #20 tab 10/11/21 Allergies Allergy/AdvReac Type Severity Reaction Status Date / Time No Known Allergies Allergy Verified 09/26/21 02:11 [No Known Allergies*] Pt states no food/mdication Allergy Unknown Unknown Uncoded 09/26/21 02:11 al Review of Systems Review of Systems: Yes all other systems are reviewed and are negative PMFSH Past Medical History Medical History Arthritis Asthma Social History Social History Alcohol intake: never Advance Directives: No Advance Directives Information Provided: Yes Physical Exam Vital Signs: Vital Signs: Last Vital Signs Temp 98.1 F 10/11/21 01:59 Pulse 81 10/11/21 01:59 Resp 20 10/11/21 01:59 BP 160/81 H 10/11/21 01:59 Pulse Ox 96 10/11/21 01:59 Body Mass Index 35.5 Const: General: comfortable and no acute distress Orientation/consciousness: patient oriented x3 HENMT: Head: Yes normocephalic and Yes atraumatic Neck: Neck images: 1. tenderness right trapezius muscle Resp: Effort & Inspection: normal respiratory effort Auscultation: clear to auscultation bilaterally Cardio: Palpation: normal PMI Rate: regular rate Rhythm: regular rhythm Heart sounds: S1 normal heart sound present and S2 normal heart sound present GI: Inspection: Yes normal to inspection Palpation (GI): Soft to palpation and nontender Back/Spine/Pelvis: Back/spine/pelvis image: 1. diffuse tenderness right rhomboids area Neuro: General: patient oriented x3 and no focal motor deficits Discharge Plan Discharge Clinical Impression: Fibromyalgia Patient Disposition: Home, Self-Care Instructions: Fibromyalgia (ED) Additional Instructions: continue medications as prescribed and start taking tramadol and Valium follow-up with PCP/physical therapist Prescriptions: New tramadol 50 mg tablet 50 mg PO Q6H PRN (Reason: pain) Qty: 20 RF: 0 diazepam [Valium] 5 mg tablet 5 mg PO BEDTIME PRN (Reason: muscle spasm) Qty: 14 RF: 0 No Action cyclobenzaprine 5 mg tablet 5 mg PO BEDTIME PRN (Reason: muscle spasm) Qty: 3 RF: 0 oxycodone 5 mg tablet 5 mg PO Q6H PRN (Reason: pain) Qty: 10 RF: 0 cyclobenzaprine 10 mg tablet 10 mg PO TID Qty: 10 RF: 0 naproxen [Naprosyn] 500 mg tablet 500 mg PO BID Qty: 20 RF: 0 Interventions: ED Discharge Assessment Last Done: 10/11/21 02:51 Discharge Date/Time: 10/11/21 02:52
[2021-10-11] MEDS: diazePAM 5 MG TABLET PO (02:31)
[2021-10-11] MEDS: dexAMETHasone 2 MG TABLET 10 MG PO (02:31)
[2021-10-11] MEDS: traMADoL HCL 50 MG TABLET PO (02:31)
== END 2021-10-11 02:52 | disposition home or self-care (01) ==
PROVIDERS: Emergency Provider Internal Medicine
DX: M79.7 Fibromyalgia (principal); M25.511 Pain in right shoulder
CPT/HCPCS: 99283; J8540

== ENCOUNTER 2021-10-11 12:04 | Emergency (ER) | payer MEDICAID, SELFPAY ==
[2021-10-11 12:07] VITALS: BP 159/89; PULSE 103; RESP 20; TEMP 36.7; O2SAT 98; BMI 39.4
--- NOTE | 2021-10-11 15:02 | ED_ITS ---
HPI - General Adult General Chief complaint: General Medical Stated complaint: pill stuck in throat, diff breathing Time Seen by Provider: 10/11/21 14:52 Source: patient and holter technician Mode of arrival: ambulatory Limitations: language barrier History of Present Illness HPI narrative: 55 yo with history of fibromyalgia here with complaint of feeling of pill stuck in throat. Patient tells me that she was seen here at 02:00 o'clock this morning for a fibromyalgia flare. She was discharged home with tramadol and Valium. She took a dose of 1 of the medications this morning 08:00 does not recall the name of the medicine. Since then she feels like it is stuck in her throat. She feels like she is having difficulty breathing because of the sensation of it being in her throat. Patient denies any history of difficulty swallowing or food getting stuck. She has previously had an endoscopy but does not know the findings of it. Related Data Previous Rx's Medication Instructions Recorded cyclobenzaprine 5 mg tablet 5 mg PO BEDTIME PRN #3 tab 05/31/21 oxycodone 5 mg tablet 5 mg PO Q6H PRN #10 tab 09/24/21 cyclobenzaprine 10 mg tablet 10 mg PO TID #10 tab 10/10/21 naproxen 500 mg tablet (Naprosyn) 500 mg PO BID #20 tab 10/10/21 diazepam 5 mg tablet (Valium) 5 mg PO BEDTIME PRN #14 tab 10/11/21 tramadol 50 mg tablet 50 mg PO Q6H PRN #20 tab 10/11/21 Allergies Allergy/AdvReac Type Severity Reaction Status Date / Time No Known Allergies Allergy Verified 10/11/21 12:07 [No Known Allergies*] Pt states no food/mdication Allergy Unknown Unknown Uncoded 09/26/21 02:11 al Review of Systems Review of Systems: Yes all other systems are reviewed and are negative Constitutional: Constitutional: Reports no additional constitutional complaints, Denies body ache(s), Denies chills, Denies fever(s), Denies headache(s) and Denies weakness Eyes: Eyes: Reports no additional eye complaints and Denies change in vision ENT: Reports system reviewed and no additional complaints, except as documented, Denies dizziness, Denies headache(s), Denies nasal congestion, Denies nasal discharge and Denies neck pain Cardiovascular: Cardiovascular: Reports no additional cardiovascular complaints, Denies chest pain, Denies leg edema and Denies dyspnea Respiratory: Respiratory: Reports no additional respiratory complaints, Denies cough and Denies dyspnea Gastrointestinal: Gastrointestinal: Reports no additional gastrointestinal complaints, Denies abdominal pain, Denies diarrhea, Denies nausea and Denies vomiting Genitourinary: Genitourinary: Reports no additional female genitourinary complaints and Denies urinary incontinence Musculoskeletal: Musculoskeletal: Reports no additional musculoskeletal complaints, Denies back pain, Denies arthralgias, Denies joint swelling, Denies neck pain, Denies numbness and Denies tingling Integumentary/Breasts: Skin/Breast: Reports system reviewed and no additional complaints, except as docu and Denies rash Neurologic: Reports system reviewed and no additional complaints, except as documented, Denies Abnormal speech present, Denies dizziness, Denies headache(s), Denies numbness, Denies tingling and Denies weakness PMFSH Past Medical History Attestation statement: The following information was validated with the patient. Source: old records reviewed and nursing notes reviewed Medical History Arthritis Asthma Social History Social History Alcohol intake: never Advance Directives: No Physical Exam Vital Signs: Vital Signs: Last Vital Signs Temp 98.1 F 10/11/21 12:07 Pulse 103 H 10/11/21 12:07 Resp 20 10/11/21 12:07 BP 159/89 H 10/11/21 12:07 Pulse Ox 98 10/11/21 12:07 Body Mass Index 39.4 Const: General: cooperative, healthy appearing, comfortable and no acute distress Orientation/consciousness: patient oriented x3 Limitations: no limitations HENMT: Other: No stridor no drooling, swallowing secretions with no difficulty Head: Yes normal to inspection Ears: hearing grossly normal bilaterally and TM's normal bilaterally General nose exam: Normal external nose present Face and sinus: Yes normal facial exam Mouth: Normal oral and palatal mucosa present Throat: Yes posterior oropharynx normal, Yes tonsils normal and Yes uvula midline Eyes: General: appearance normal, both eyes and all related structures Pupils: Equal, round and reactive pupils present Neck: Neck: Yes normal visual inspection, Yes full ROM and Yes no lymphadenopathy Chest: Chest palpation & inspection: normal inspection of the chest Resp: Effort & Inspection: normal respiratory effort Auscultation: clear to auscultation bilaterally Cardio: Rate: regular rate Rhythm: regular rhythm Peripheral pulses: Peripheral pulses 2+ throughout GI: Inspection: Yes normal to inspection Palpation (GI): Soft to palpation and nontender Auscultation: normal bowel sounds Back/Spine/Pelvis: Thoracic/Lumbar Spine: thoracic and lumbar spine normal to inspection Skin: General skin exam: no rashes or lesions noted Neuro: General: patient oriented x3, no focal motor deficits and normal sensation to monofilament Cranial nerves: Yes Equal, round and reactive pu pils present Cognition (Neuro): normal cognition Speech: No Abnormal speech present Gait exam (Neuro): Normal gait present Motor exam (neuro): 5/5 motor strength present throughout Extrem: General: Yes normal to inspection, Yes no pedal edema and Yes no calf tenderness Course Course Course Narrative: 55-year-old female here with complaint of feeling like pill is stuck in her throat after taking either a Valium or tramadol at 08:00 o'clock this morning. Patient is speaking full sentences. She is tolerating her secretions well no difficulty. Her vitals are stable. I explained to the patient imaging is not warranted as it likely would be negative even if there is a pill that is there in her esophagus. I explained with time it will dissolve. in the meantime we can offer supportive care. Will give Maalox and lidocaine. 1650- patient feels improved after receiving Maalox and lidocaine. Will plan for discharge home. Reviewed worrisome signs and symptoms of when to return to the emergency department. Comfortable discharge home. Discharge Plan Discharge Clinical Impression: Esophageal foreign body Patient Disposition: Home, Self-Care Instructions: Esophageal Foreign Body (ED) Additional Instructions: with time the pill will dissolve increase fluids follow-up with primary care as needed if you continue to have difficulty swallowing thing you should follow-up with a tear down man Prescriptions: No Action cyclobenzaprine 5 mg tablet 5 mg PO BEDTIME PRN (Reason: muscle spasm) Qty: 3 RF: 0 oxycodone 5 mg tablet 5 mg PO Q6H PRN (Reason: pain) Qty: 10 RF: 0 cyclobenzaprine 10 mg tablet 10 mg PO TID Qty: 10 RF: 0 naproxen [Naprosyn] 500 mg tablet 500 mg PO BID Qty: 20 RF: 0 tramadol 50 mg tablet 50 mg PO Q6H PRN (Reason: pain) Qty: 20 RF: 0 diazepam [Valium] 5 mg tablet 5 mg PO BEDTIME PRN (Reason: muscle spasm) Qty: 14 RF: 0 Referrals: [facility] [Primary Care Provider] - 2 days Interventions: ED Discharge Assessment Last Done: 10/11/21 16:42 Discharge Date/Time: 10/11/21 16:43 Print Language: Italian
[2021-10-11] MEDS: Lidocaine HCl Viscous 2 % 15 ML SOLUTION MUCOUS MEM (15:34)
[2021-10-11] MEDS: Magnesium Hydrox/Alum Hydrox 30 ML ORAL.SUSP PO (15:35)
== END 2021-10-11 16:43 | disposition home or self-care (01) ==
PROVIDERS: Emergency Provider Emergency Medicine
DX: T18.198A Other foreign object in esophagus causing other injury, initial encounter (principal); X58.XXXA Exposure to other specified factors, initial encounter
CPT/HCPCS: 99283

== ENCOUNTER 2023-04-21 11:23 | Outpatient (REF) | payer MEDICAID, SELFPAY ==
--- NOTE | ~2023-04-21 | MM_ITS ---
EXAMINATION: MM SCREENING DIGITAL BREAST TOMOSYNTHESIS, BILATERAL CLINICAL INFORMATION: Screening. Asymptomatic. The lifetime risk of breast cancer based on the Tyrer-Cuzick Model is 8%. COMPARISON: Mammography: 08/31/2021, 03/09/2018, 02/18/2017 TECHNIQUE: Digital breast tomosynthesis is performed in both the craniocaudal and mediolateral oblique views along with computer-aided detection (CAD). Synthesized 2D images are generated from the tomosynthesis. FINDINGS: There are scattered areas of fibroglandular density (ACR BI-RADS breast composition Category b). There are no significant masses, abnormal calcifications, or other abnormalities. Parenchymal pattern is similar to prior studies. There is no developing density or architectural abnormality. The axilla and skin contours are unremarkable. No significant changes. MM/MM tomosynthesis screening BI IMPRESSION: No mammographic evidence of malignancy. ASSESSMENT: BI-RADS 1: Negative RECOMMENDATION: Routine annual mammography screening. This patient's information was entered into a reminder system with a target due date for their next mammogram.
== END 2023-04-21 11:24 | disposition home or self-care (01) ==
LOC: HO.MAMMO 11:23
PROVIDERS: PCP Internal Medicine; Visit Provider Internal Medicine
DX: Z12.31 Encounter for screening mammogram for malignant neoplasm of breast (principal)
CPT/HCPCS: 77063; 77067

== ENCOUNTER 2023-07-22 08:15 | Outpatient (AMB) | payer MEDICAID, SELFPAY ==
--- NOTE | 2023-07-22 08:19 | A.OFFVIS_ITS ---
Intake Vital Signs 07/22/23 08:21 Height 5 ft 5 in Weight 224 lb 10.417 oz BMI 37.4 BP 114/68 Blood Pressure Location Rt brachial Position Sitting Pulse 79 Pulse Source Pulse Oximeter Temp 97.3 F Temp Source Skin Pulse Oximetry (%) 97 Intake Visit Reasons: RA Intake Note: * New pt presents today for RA consult. * C/o pain everywhere. * She states she also has fibromyalgia. Panelboard Operator Required: Yes Panelboard Operator Name: Rosalba Cristobal [id number] Information Interpreted: clinical only Accompanied by: Self / Same As Patient Allergies No Known Allergies [No Known Allergies*] Allergy (Verified 07/22/23 08:31) Medication List - Last Reconciled 07/22/23 by Juma Reddy MD albuterol sulfate 90 mcg/actuation (Ventolin HFA) 2 puffs inhalation Q6H PRN aspirin 81 mg PO DAILY cholecalciferol (vitamin D3) (Vitamin D3) 50 mcg PO QAM cyclobenzaprine 5 mg PO Q8H PRN diclofenac sodium 1% 2 grams topical QID ferrous sulfate (FeroSul) 325 mg PO BID hydrochlorothiazide 25 mg PO DAILY levothyroxine 200 mcg PO DAILY lidocaine 5% 0 patches topical lisinopril 5 mg PO QAM loratadine 10 mg PO DAILY PRN paroxetine HCl 20 mg PO DAILY prednisolone acetate 1% 1 drp ophthalmic-Right QID rosuvastatin 10 mg PO BEDTIME sennosides (senna) 8.6 mg PO PRN sodium chloride 0.65% (Deep Sea Nasal) 2 sprays intranasal tramadol 50 mg PO Q6H PRN triamcinolone acetonide 0.1% topical BID zolpidem 10 mg PO BEDTIME PRN HPI HPI Comments History of Present Illness Details This is a 57-year-old female with a past medical history of rheumatoid arthritis who presents as a new patient. Back in 2014 patient was found to have positive rheumatoid factor and anti CCP in high titers. She was on methotrexate in the past and patient had stopped methotrexate without worsening of her symptoms. She has history of bilateral carpal tunnel syndrome since 2006 but she refused surgery. Patient continues to have diffuse pain everywhere. The majority of her pain is in her lower back with intermittent radiation to her lower extremities. She has numbness of her fingers especially the left index. She has morning stiffness lasting 30 minutes. [facility] Medical History (Updated 07/22/23 @ 09:23 by Juma Reddy MD) Acquired hypothyroidism Anxiety and depression Asthma Bilateral carpal tunnel syndrome Cervical radiculopathy Essential hypertension Fibromyalgia Lumbar radiculopathy Rheumatoid arthritis involving multiple sites with positive rheumatoid factor Sjogren's syndrome Type 2 diabetes mellitus Surgical History H/O gastric bypass Hx of cataract extraction No history of previous surgery Family History Mother Arthritis Father No problems noted. Other Medical history unknown Social History Household Members: None Alcohol intake: never Patient Tobacco Use Status: Never used Tobacco Current occupational status: disabled Female Reproductive History Menstrual Total pregnancies: 4 Full term: 3 Number of Living Children: 2 Ab induced: 1 Review of Systems Eyes Reports itchy eyes Musc Reports back pain, Reports arthralgias, Reports joint swelling, Reports limited range of motion, Reports numbness, Reports radiating pain into limb, Reports stiffness and Reports tingling Neuro Reports numbness and Reports tingling Psych Reports abnormal sleep pattern and Reports anxiety Aller/Immun Reports itchy eyes Physical Exam Vital Signs: Last Vital Signs Temp 97.3 F 07/22/23 08:21 Pulse 79 07/22/23 08:21 BP 114/68 07/22/23 08:21 Pulse Ox 97 07/22/23 08:21 BMI result Body Mass Index 37.4 Const General: cooperative, healthy appearing and comfortable Nutritional Appearance: obese morbidly obese Orientation/consciousness: patient oriented x3 Limitations: no limitations HEENT Head: Yes normocephalic and Yes atraumatic Mouth: moist mucous membranes Resp Effort & Inspection: normal respiratory effort and able to speak in complete sentences Auscultation: clear to auscultation bilaterally Cardio Rate: regular rate Rhythm: regular rhythm GI Palpation (GI): Soft to palpation and nontender Neuro General: patient oriented x3 Extrem Other: Mild osteoarthritic changes of both hands without swollen joints No wrist pain with full flexion and extension Left 2nd MCP tenderness Few tender DIPs Positive straight leg raise test on the right Mild bilateral knee pain with full flexion Left 3rd through 5th MTP tenderness Negative MTP squeeze test bilaterally Left ankle tenderness without warmth or swelling Results Reviewed Results Reviewed: Labs 2014 RF 90 (<15) CCP >250 14.3.3 >20 (<0.2) SSa 6.9 (<1.0) SSb -ve TPO +++ Thyroglobulin +++ DsDNA negative C3 and C4 normal Assessment & Plan Assessment & Plan (1) Cyclic citrullinated peptide (CCP) antibody positive: Code(s): R76.8 - Other specified abnormal immunological findings in serum Plan: This is a 57-year-old female who presents for evaluation of rheumatoid arthritis. She was diagnosed with rheumatoid arthritis more than 10 years ago and was on methotrexate for some time. She stopped her methotrexate years ago without worsening of her symptoms. She has positive anti CCP antibody in high titers and positive rheumatoid factor and high titers in the past. There is no significant synovitis upon evaluation today. Will check x-rays to evaluate for erosive disease. Check labs to evaluate disease activity (2) Lumbar radiculopathy: Code(s): M54.16 - Radiculopathy, lumbar region Plan: This seems to be her main problem today. Will check an L-spine x-ray. Will refer patient to pain management (3) Bilateral carpal tunnel syndrome: Code(s): G56.03 - Carpal tunnel syndrome, bilateral upper limbs Plan: Diagnosed since 2006. Patient refused surgery. Will discuss wrist splints next visit Plan I spent 47 minutes reviewing patient's chart, evaluating patient, ordering diagnostic workup, counseling patient and documenting in the chart Orders: Orders Complete Blood Count Auto Diff Today M05.79 - Rheumatoid arthritis with rheumatoid factor of multiple sites without organ or systems involvement Comprehensive Met. Panel Today M05.79 - Rheumatoid arthritis with rheumatoid factor of multiple sites without organ or systems involvement C Reactive Protein Today M05.79 - Rheumatoid arthritis with rheumatoid factor of multiple sites without organ or systems involvement Hepatitis A,B,C Profile Today Z11.59 - Encounter for screening for other viral diseases Immunofixation Pnl, Serum Today M05.79 - Rheumatoid arthritis with rheumatoid factor of multiple sites without organ or systems involvement Protein Electrophoresis, Serum Today M05.79 - Rheumatoid arthritis with rheumatoid factor of multiple sites without organ or systems involvement T Spot TB Today Z11.7 - Encounter for testing for latent tuberculosis infection XR foot LT min 3V Today M05.79 - Rheumatoid arthritis with rheumatoid factor of multiple sites without organ or systems involvement XR foot RT min 3V Today M05.79 - Rheumatoid arthritis with rheumatoid factor of multiple sites without organ or systems involvement XR hand wrist LT Today M05.79 - Rheumatoid arthritis with rheumatoid factor of multiple sites without organ or systems involvement XR hand wrist RT Today M05.79 - Rheumatoid arthritis with rheumatoid factor of multiple sites without organ or systems involvement XR knee LT 3V Today M05.79 - Rheumatoid arthritis with rheumatoid factor of multiple sites without organ or systems involvement XR knee RT 3V Today M05.79 - Rheumatoid arthritis with rheumatoid factor of multiple sites without organ or systems involvement XR knee standing BI Today M05.79 - Rheumatoid arthritis with rheumatoid factor of multiple sites without organ or systems involvement XR lumbar spine 4V min Today M54.16 - Radiculopathy, lumbar region Anti Extractable Nuclear Ag Today M35.00 - Sjogren syndrome, unspecified Anti DNA DS Antibody Today M35.00 - Sjogren syndrome, unspecified Complement C3 Today M35.00 - Sjogren syndrome, unspecified Complement C4 Today M35.00 - Sjogren syndrome, unspecified Erythrocyte Sedimentation Rate Today M35.00 - Sjogren syndrome, unspecified Protein Creatinine Ratio, Ur Today M35.00 - Sjogren syndrome, unspecified UA w Microscopic Today M35.00 - Sjogren syndrome, unspecified Sjogren's Antibodies Today M35.00 - Sjogren syndrome, unspecified Referrals Pain Management Referral M54.16 - Radiculopathy, lumbar region Coding Level of Care Code Est Pt Level 4 (86163) Diagnoses Cyclic citrullinated peptide (CCP) antibody positive R76.8 Lumbar radiculopathy M54.16 Bilateral carpal tunnel syndrome G56.03
[2023-07-22 08:21] VITALS: BP 114/68; PULSE 79; TEMP 36.3; O2SAT 97; BMI 37.4
== END 2023-07-22 09:02 | disposition home or self-care (01) ==
PROVIDERS: PCP Internal Medicine; Visit Provider Student in an Organized Health Care Education/Training Program
DX: M54.16 Radiculopathy, lumbar region (principal); G56.03 Carpal tunnel syndrome, bilateral upper limbs; R76.8 Other specified abnormal immunological findings in serum
CPT/HCPCS: 99214

== ENCOUNTER 2023-07-22 08:15 | Outpatient (REF) | payer MEDICAID, SELFPAY ==
--- NOTE | ~2023-07-22 | XR_ITS ---
EXAMINATION: XR HAND/WRIST, RIGHT XR HAND/WRIST, LEFT XR KNEE LEFT XR FOOT, RIGHT XR LUMBAR SPINE CLINICAL INDICATION: Radiculopathy and bilateral hand pain and right foot and left knee pain. COMPARISON: MRI lumbar spine 06/27/2020 TECHNIQUE: Lumbar spine 5 views, right foot 3 views. 4 views each hand/wrist and left knee 4 views. FINDINGS: LUMBAR SPINE: There is normal lumbar lordosis. There is mild anterior wedge deformity T12 and T11 vertebrae of indeterminate age. No visible acute fracture, dislocation or lytic process seen. There is mild endplate spondylosis L4-L5, L3-4, L2-L3, and L1-L2 disc levels. No aggressive lytic or sclerotic process seen. SI joints are symmetrical and normal. RIGHT FOOT: The visualized bones and joint spaces are maintained normal. No fracture, dislocation or bony erosive changes. The ankle mortise and subtalar joints are normal. There are small to moderate size calcaneal heel and retrocalcaneal enthesophytes. BILATERAL HANDS: Mild loss of PIP and DIP joint spaces seen. No bony erosive changes. No loose bodies or enthesophytes. The carpal bones are unremarkable. The soft tissues are normal. No fracture or dislocation seen involving the right hand or the wrist. LEFT KNEE: There is loss of tricompartmental joint space with mild periarticular enthesophytes. No visible fracture or dislocation. There is a small suprapatellar joint effusion. No loose body seen. The soft tissues are normal. XR/XR hand wrist RT IMPRESSION: 1. Mild anterior wedge deformity T12 and T11 vertebrae of indeterminate age, likely old. No acute fracture or dislocation. There is endplate spondylosis lumbar spine. 2. Mild degenerative changes PIP and DIP joints both hands. No acute fracture or dislocation right hand or right wrist. 3. There are small to moderate size calcaneal heel and retrocalcaneal enthesophytes. No acute fracture or dislocation right foot. 4. Mild suprapatellar joint effusion left knee. No acute fracture or dislocation.
--- NOTE | ~2023-07-22 | XR_ITS ---
EXAMINATION: Right knee and lumbar spine. CLINICAL INDICATION: Lumbar radiculopathy Left foot pain. COMPARISON: Right ankle 01/05/2019 TECHNIQUE: 4 views right knee and 3 views left foot. FINDINGS: RIGHT KNEE: There is mild loss of tricompartment joint space without loose bodies, bony erosive changes. There is mild periapical spurring in the medial and patellofemoral compartments. No joint effusion seen. No acute fracture or dislocation. LEFT FOOT: There is no visible acute fracture, dislocation or subluxation seen. There is a small calcaneal heel and retrocalcaneal enthesophyte. Ankle mortise and subtalar joints are normal. The soft tissues are normal. XR/XR knee RT 4V IMPRESSION: 1. Mild degenerative changes medial and patellofemoral compartments right knee. No visible acute fracture or dislocation seen. 2. Small calcaneal heel and retrocalcaneal enthesophytes. No visible acute fracture or dislocation seen.
--- NOTE | ~2023-07-22 | XR_ITS ---
EXAMINATION: Right knee and lumbar spine. CLINICAL INDICATION: Lumbar radiculopathy Left foot pain. COMPARISON: Right ankle 01/05/2019 TECHNIQUE: 4 views right knee and 3 views left foot. FINDINGS: RIGHT KNEE: There is mild loss of tricompartment joint space without loose bodies, bony erosive changes. There is mild periapical spurring in the medial and patellofemoral compartments. No joint effusion seen. No acute fracture or dislocation. LEFT FOOT: There is no visible acute fracture, dislocation or subluxation seen. There is a small calcaneal heel and retrocalcaneal enthesophyte. Ankle mortise and subtalar joints are normal. The soft tissues are normal. XR/XR foot LT min 3V IMPRESSION: 1. Mild degenerative changes medial and patellofemoral compartments right knee. No visible acute fracture or dislocation seen. 2. Small calcaneal heel and retrocalcaneal enthesophytes. No visible acute fracture or dislocation seen.
--- NOTE | ~2023-07-22 | XR_ITS ---
EXAMINATION: XR HAND/WRIST, RIGHT XR HAND/WRIST, LEFT XR KNEE LEFT XR FOOT, RIGHT XR LUMBAR SPINE CLINICAL INDICATION: Radiculopathy and bilateral hand pain and right foot and left knee pain. COMPARISON: MRI lumbar spine 06/27/2020 TECHNIQUE: Lumbar spine 5 views, right foot 3 views. 4 views each hand/wrist and left knee 4 views. FINDINGS: LUMBAR SPINE: There is normal lumbar lordosis. There is mild anterior wedge deformity T12 and T11 vertebrae of indeterminate age. No visible acute fracture, dislocation or lytic process seen. There is mild endplate spondylosis L4-L5, L3-4, L2-L3, and L1-L2 disc levels. No aggressive lytic or sclerotic process seen. SI joints are symmetrical and normal. RIGHT FOOT: The visualized bones and joint spaces are maintained normal. No fracture, dislocation or bony erosive changes. The ankle mortise and subtalar joints are normal. There are small to moderate size calcaneal heel and retrocalcaneal enthesophytes. BILATERAL HANDS: Mild loss of PIP and DIP joint spaces seen. No bony erosive changes. No loose bodies or enthesophytes. The carpal bones are unremarkable. The soft tissues are normal. No fracture or dislocation seen involving the right hand or the wrist. LEFT KNEE: There is loss of tricompartmental joint space with mild periarticular enthesophytes. No visible fracture or dislocation. There is a small suprapatellar joint effusion. No loose body seen. The soft tissues are normal. XR/XR lumbar spine 4V min IMPRESSION: 1. Mild anterior wedge deformity T12 and T11 vertebrae of indeterminate age, likely old. No acute fracture or dislocation. There is endplate spondylosis lumbar spine. 2. Mild degenerative changes PIP and DIP joints both hands. No acute fracture or dislocation right hand or right wrist. 3. There are small to moderate size calcaneal heel and retrocalcaneal enthesophytes. No acute fracture or dislocation right foot. 4. Mild suprapatellar joint effusion left knee. No acute fracture or dislocation.
--- NOTE | ~2023-07-22 | XR_ITS ---
EXAMINATION: XR HAND/WRIST, RIGHT XR HAND/WRIST, LEFT XR KNEE LEFT XR FOOT, RIGHT XR LUMBAR SPINE CLINICAL INDICATION: Radiculopathy and bilateral hand pain and right foot and left knee pain. COMPARISON: MRI lumbar spine 06/27/2020 TECHNIQUE: Lumbar spine 5 views, right foot 3 views. 4 views each hand/wrist and left knee 4 views. FINDINGS: LUMBAR SPINE: There is normal lumbar lordosis. There is mild anterior wedge deformity T12 and T11 vertebrae of indeterminate age. No visible acute fracture, dislocation or lytic process seen. There is mild endplate spondylosis L4-L5, L3-4, L2-L3, and L1-L2 disc levels. No aggressive lytic or sclerotic process seen. SI joints are symmetrical and normal. RIGHT FOOT: The visualized bones and joint spaces are maintained normal. No fracture, dislocation or bony erosive changes. The ankle mortise and subtalar joints are normal. There are small to moderate size calcaneal heel and retrocalcaneal enthesophytes. BILATERAL HANDS: Mild loss of PIP and DIP joint spaces seen. No bony erosive changes. No loose bodies or enthesophytes. The carpal bones are unremarkable. The soft tissues are normal. No fracture or dislocation seen involving the right hand or the wrist. LEFT KNEE: There is loss of tricompartmental joint space with mild periarticular enthesophytes. No visible fracture or dislocation. There is a small suprapatellar joint effusion. No loose body seen. The soft tissues are normal. XR/XR foot RT min 3V IMPRESSION: 1. Mild anterior wedge deformity T12 and T11 vertebrae of indeterminate age, likely old. No acute fracture or dislocation. There is endplate spondylosis lumbar spine. 2. Mild degenerative changes PIP and DIP joints both hands. No acute fracture or dislocation right hand or right wrist. 3. There are small to moderate size calcaneal heel and retrocalcaneal enthesophytes. No acute fracture or dislocation right foot. 4. Mild suprapatellar joint effusion left knee. No acute fracture or dislocation.
== END 2023-07-22 08:16 | disposition home or self-care (01) ==
LOC: HO.XRAY 08:15
PROVIDERS: PCP Internal Medicine; Visit Provider Student in an Organized Health Care Education/Training Program
DX: M05.79 Rheumatoid arthritis with rheumatoid factor of multiple sites without organ or systems involvement (principal); M54.16 Radiculopathy, lumbar region; R76.8 Other specified abnormal immunological findings in serum
CPT/HCPCS: 72110; 73110; 73130; 73564; 73630; 99212

== ENCOUNTER 2023-07-22 09:17 | Outpatient (REF) | payer MEDICAID, SELFPAY ==
[2023-07-22 10:11] LABS: MANUAL DIFF FLAG NO
[2023-07-22 10:16] LABS: Basophils Percent Auto 0.6 % (0-2); Eosinophils Absolute Auto 0.2 X10*3/uL (0.0-0.4); Eosinophils Percent Auto 3.5 % (0-4); Hematocrit 38.5 % (37.0-47.0); Hemoglobin 12.8 g/dl (12.0-16.0); Imm Gran Abs Auto 0.02 X10*3/uL (0.00-0.03); Imm Gran Pct Auto 0.3 % (0.0-0.4); Lymphocytes Absolute Auto 2.6 X10*3/uL (1.2-4.9); Lymphocytes Percent Auto 41.2 % (20-40); Mean Corpuscular HGB Conc 33.2 g/dl (31.0-35.0); Mean Corpuscular Hemoglobin 30.3 pg (27.0-33.0); Mean Corpuscular Volume 91.2 fL (80.0-98.0); Mean Platelet Volume 11.4 fL (9.4-12.3); Monocytes Absolute Auto 0.7 X10*3/uL (0.1-1.2); Monocytes Percent Auto 11.3 % (2-11); Neutrophils Absolute Auto 2.7 x10*3/uL (2.0-8.3); Neutrophils Percent Auto 43.1 % (45-73); Platelet Count 281 X10*3/uL (160-400); Red Blood Count 4.22 X10*6/uL (4.20-5.50); Red Cell Distribution Width 12.5 % (11.0-16.0); White Blood Count 6.3 X10*3/uL (4.8-10.8)
[2023-07-22 10:29] LABS: Appearance Urine Clear; Color Urine Yellow; Glucose Urine UA Negative (Negative); Leukocyte Esterase Urine Negative (Negative); Nitrite Urine Negative (Negative); PH 5.5 (5.0-9.0); Urine Blood Negative (Negative); Urine Ketones Negative (Negative); Urine Protein Negative (Neg-Trace)
[2023-07-22 10:31] LABS: Bacteria Urine None Seen (None Seen); Hyaline Casts Urine 0-2 /LPF (0-2); RBC Urine 0-2 /HPF (0-2); Squamous Epithelial Cell Urine 0-2 /HPF (0-2); WBC Urine 0-5 /HPF (0-5)
[2023-07-22 10:37] LABS: Alanine Aminotransferase 18 U/L (0-31); Albumin Level 4.1 g/dL (3.5-5.0); Alkaline Phosphatase 86 U/L (39-117); Anion Gap 11 (12-20); Aspartate Amino Transferase 28 U/L (5-31); Bilirubin Total 0.5 mg/dL (0.0-1.0); Blood Urea Nitrogen 15 mg/dL (9-16); C Reactive Protein 0.37 mg/dL (< or = 0.50); Calcium 9.6 mg/dL (8.4-10.2); Carbon Dioxide 29 mmol/L (22-29); Chloride 104 mmol/L (96-108); Estimated Glomerular Filt Rate > 60; Glucose Random 114 mg/dL (60-115); Potassium 3.8 mmol/L (3.3-5.1); Sodium 140 mmol/L (135-145); Total Protein 7.5 g/dL (6.5-8.0)
[2023-07-22 10:52] LABS: Erythrocyte Sedimentation Rate 22 MM/HR (0-20)
[2023-07-22 11:00] LABS: HBS Num1 0.92 mIU/mL (0-7.99); HBsAGNum1 0.36 S/CO (0.00-0.99); Hepatitis B Core Antibody Nonreactive (Nonreactive); Hepatitis B Surface Antigen Negative (Negative); ~HepC Num1 0.07 S/CO (0.00-0.79); ~Hepatitis A Antibody IgM Nonreactive (Nonreactive); ~Hepatitis B Surface Antibody NONREACTIVE (Nonreactive); ~Hepatitis C Antibody Nonreactive (Nonreactive)
[2023-07-22 11:13] LABS: Creatinine Urine 35.84 mg/dL; Total Protein Urine Random < 7 mg/dL (<12)
[2023-07-24 12:04] LABS: Prot Elec - Alpha1 0.2 g/dL (0.2-0.3); Prot Elec - Alpha2 0.6 g/dL (0.5-0.9); Prot Elec - Beta 1 0.5 g/dL (0.4-0.6); Prot Elec - Beta 2 0.4 g/dL (0.2-0.5); Prot Elec - Gamma 1.1 g/dL (0.8-1.7); Prot Elec - Total Protein 6.9 g/dL (6.1-8.1)
[2023-07-24 15:13] LABS: IgA 281 mg/dL (47-310); IgG 1394 mg/dL (600-1640); IgM 98 mg/dL (50-300)
[2023-07-24 17:58] LABS: Complement C3 156 mg/dL (83-193)
[2023-07-24 18:08] LABS: Anti DNA DS Antibody 1 IU/mL; Antibody to SS-A Antigen 7.4 POS AI (<1.0 NEG); Antibody to SS-B Antigen <1.0 NEG AI (<1.0 NEG); SM/Ribonucleoprotein Ab <1.0 NEG AI (<1.0 NEG); Smith Protein <1.0 NEG AI (<1.0 NEG)
[2023-07-24 22:24] LABS: TS Negative Control Passed; TS Panel A 0; TS Panel B 1; TS Positive Control Passed; TSpotTB Negative (Negative)
== END 2023-07-22 09:18 | disposition home or self-care (01) ==
LOC: HO.10HDL 09:17
PROVIDERS: Visit Provider Student in an Organized Health Care Education/Training Program
DX: Z11.7 Encounter for testing for latent tuberculosis infection (principal); Z11.59 Encounter for screening for other viral diseases; M05.79 Rheumatoid arthritis with rheumatoid factor of multiple sites without organ or systems involvement; M35.00 Sjogren syndrome, unspecified
CPT/HCPCS: 36415; 80053; 81001; 82570; 82784; 84156; 84165; 85025; 85652; 86140; 86160; 86225; 86235; 86334; 86481; 86704; 86706; 86709; 86803; 87340

== ENCOUNTER 2023-07-27 10:03 | Outpatient (AMB) | payer MEDICAID, SELFPAY ==
--- NOTE | 2023-07-27 09:58 | MHC.OFFVIS ---
Intake Vital Signs 07/27/23 10:09 Height 5 ft 5 in Weight 225 lb 3 oz BMI 37.5 BP 128/72 Blood Pressure Location Rt brachial Position Sitting Pulse 82 Pulse Source Pulse Oximeter Pulse Oximetry (%) 98 Oxygen Delivery Method Room Air Intake Visit Reasons: LUMBAR RADICULOPATHY Intake Note: Pain today 8/10 Textile Finisher Required: Yes Textile Finisher Name: Joy #[id number] Accompanied by: Self / Same As Patient Allergies No Known Allergies [No Known Allergies*] Allergy (Verified 07/27/23 10:06) HPI LUMBAR RADICULOPATHY HPI Details Patient is a pleasant 57 years old Mohawk speaking female presents today for initial evaluation of chronic low back pain with bilateral radiculopathy. Denies any past or recent trauma, injury or falls. Patient reports back pain is axial and also radiates into both buttocks and wraps around bilateral hips and into both lower extremities laterally and posteriorly with stretching and spasming in her thighs and calves. SLR testing was negative bilaterally today but she does endorses pain in both sacroiliac joint areas, worse on the left with provocative testing. Pain affects her daily activities, functioning, sleep, social activities, mood and quality of life. Pain is worst at night after significant exacerbation of lower back and joint during her daily activities and prolonged walking. She rates her pain 8-10/10. Denies previous physical therapy, chiropractic manipulation, massage, aqua therapy, acupuncture, TENS unit or home exercise program. Denies any fever, abdominal or groin pain, dizziness, shortness of breath, bladder or bowel incontinence or saddle anesthesia. Reports left lower extremity weakness with ambulation. Location Lower back pain radiates to bilatearal buttocks and lower extremities Duration Chronic pain, involving multiple joint for many years Characteristics of symptom or complaint Aching, spasming, sore, heavy, stiffness, stabbing, squeezing Aggravating or associated factors Movements, prolonged sitting, walking, lifting, bending, weather changes Relieving factors Tramadol, lidocaine patches, Flexeril, resting-mild relief Treatment None PFSH Medical History (Updated 07/27/23 @ 10:31 by BALJIT Jaeger) Fibromyalgia Anxiety and depression Bilateral carpal tunnel syndrome Type 2 diabetes mellitus Essential hypertension Sjogren's syndrome Rheumatoid arthritis involving multiple sites with positive rheumatoid factor Acquired hypothyroidism Cervical radiculopathy Lumbar radiculopathy Asthma Surgical History H/O gastric bypass Hx of cataract extraction No history of previous surgery Family History Mother Arthritis Father No problems noted. Other Medical history unknown Social History Household Members: None Alcohol intake: never Patient Tobacco Use Status: Never used Tobacco Current occupational status: disabled Review of Systems Const All systems reviewed & are unremarkable except as noted in HPI and below Physical Exam Vital Signs: Last Vital Signs Pulse 82 07/27/23 10:09 BP 128/72 07/27/23 10:09 Pulse Ox 98 07/27/23 10:09 Oxygen Delivery Method Room Air 07/27/23 10:09 BMI result Body Mass Index 37.5 General: Appears afebrile. Alert and oriented. Mood and affect appropriate. Follows and participates in conversation appropriately. Respiratory effort is unlabored. No cough. Able to transition from sit to stand unassisted. Ambulates with bilaterally normal heel strike and toe off. Back/Spine/Pelvis Other: Patient is able to walk and stand on heels and tip toes with no difficulties demonstrating good motor tone. No limping. Can flex forward to 65-70 degrees and extend to 5-10 degrees before experiencing lumbar pain. Demonstrates 5/5 strength of quadriceps bilaterally as well as flexion/dorsiflexion of bilateral feet against resistance. 2+ pedal pulses bilaterally. Straight leg rise with dorsiflexion negative bilaterally. +2 patellar and +1 achilles reflexes bilaterally. Facet loading test positive bilaterally. Collin sign, Gareth?s, Gaenslen, Pelvic compression and Stinchfield tests are positive bilaterally, worse on the left. No groin pain with I/E hip rotations. Valsalva maneuver negative. Multiple TTP 16/16 upper and lower extremities consistent with fibromyalgia. Results Reviewed Results Reviewed: XR HAND/WRIST, RIGHT XR HAND/WRIST, LEFT XR KNEE LEFT XR FOOT, RIGHT XR LUMBAR SPINE 07/22/23 CLINICAL INDICATION: Radiculopathy and bilateral hand pain and right foot and left knee pain. COMPARISON: MRI lumbar spine 06/27/2020 TECHNIQUE: Lumbar spine 5 views, right foot 3 views. 4 views each hand/wrist and left knee 4 views. FINDINGS: LUMBAR SPINE: There is normal lumbar lordosis. There is mild anterior wedge deformity T12 and T11 vertebrae of indeterminate age. No visible acute fracture, dislocation or lytic process seen. There is mild endplate spondylosis L4-L5, L3-4, L2-L3, and L1-L2 disc levels. No aggressive lytic or sclerotic process seen. SI joints are symmetrical and normal. RIGHT FOOT: The visualized bones and joint spaces are maintained normal. No fracture, dislocation or bony erosive changes. The ankle mortise and subtalar joints are normal. There are small to moderate size calcaneal heel and retrocalcaneal enthesophytes. BILATERAL HANDS: Mild loss of PIP and DIP joint spaces seen. No bony erosive changes. No loose bodies or enthesophytes. The carpal bones are unremarkable. The soft tissues are normal. No fracture or dislocation seen involving the right hand or the wrist. LEFT KNEE: There is loss of tricompartmental joint space with mild periarticular enthesophytes. No visible fracture or dislocation. There is a small suprapatellar joint effusion. No loose body seen. The soft tissues are normal. IMPRESSION: 1. Mild anterior wedge deformity T12 and T11 vertebrae of indeterminate age, likely old. No acute fracture or dislocation. There is endplate spondylosis lumbar spine. 2. Mild degenerative changes PIP and DIP joints both hands. No acute fracture or dislocation right hand or right wrist. 3. There are small to moderate size calcaneal heel and retrocalcaneal enthesophytes. No acute fracture or dislocation right foot. 4. Mild suprapatellar joint effusion left knee. No acute fracture or dislocation. Assessment & Plan Assessment & Plan (1) Lumbar radiculopathy: Code(s): M54.16 - Radiculopathy, lumbar region (2) Lumbar spondylosis: Code(s): M47.816 - Spondylosis without myelopathy or radiculopathy, lumbar region (3) Fibromyalgia: Code(s): M79.7 - Fibromyalgia (4) Sacroiliac joint pain: Code(s): M53.3 - Sacrococcygeal disorders, not elsewhere classified Plan 1. Recommend formal physical therapy for chronic low back pain, SIJ pain and muscle spasms/stiffness with focus on lumbar stabilization, modalities, stretching, strengthening and progressing to a home program. Script provided today. 2. Follow-up in 6-8 weeks to see response to physical therapy, if no response to physical therapy will consider further interventional strategy. All questions and concerns have been answered and patient agreed with the plan. Follow up as needed. Orders: Orders PT Evaluation and Treatment Today M47.816 - Spondylosis without myelopathy or radiculopathy, lumbar region, M53.3 - Sacrococcygeal disorders, not elsewhere classified, M54.16 - Radiculopathy, lumbar region, M79.7 - Fibromyalgia Coding Level of Care Code New Pt Level 4 (74440) Diagnoses Lumbar radiculopathy M54.16 Lumbar spondylosis M47.816 Fibromyalgia M79.7 Sacroiliac joint pain M53.3
[2023-07-27 10:09] VITALS: BP 128/72; PULSE 82; O2SAT 98; BMI 37.5
== END 2023-07-27 10:29 | disposition home or self-care (01) ==
PROVIDERS: PCP Internal Medicine; Visit Provider Nurse Practitioner Family
DX: M54.16 Radiculopathy, lumbar region (principal); M47.816 Spondylosis without myelopathy or radiculopathy, lumbar region; M79.7 Fibromyalgia; M53.3 Sacrococcygeal disorders, not elsewhere classified
CPT/HCPCS: 99204

== ENCOUNTER → 2023-07-27 10:03 | Outpatient (BNVA) | payer MEDICAID, SELFPAY | PROVIDERS: PCP Internal Medicine; Visit Provider Nurse Practitioner Family | DX: M47.26 Other spondylosis with radiculopathy, lumbar region (principal); M79.7 Fibromyalgia; M53.3 Sacrococcygeal disorders, not elsewhere classified | CPT/HCPCS: 99212 ==

== ENCOUNTER 2023-08-11 14:42 | Outpatient (REF) | payer MEDICAID, SELFPAY ==
[2023-08-11 18:28] LABS: Creatinine Urine 40.55 mg/dL; Microalbum/Creatinine Ratio Ur 27.1 ug/mg cr (<30)
== END 2023-08-11 14:43 | disposition home or self-care (01) ==
LOC: HO.HHCL 14:42
PROVIDERS: Visit Provider Internal Medicine
DX: E11.9 Type 2 diabetes mellitus without complications (principal)
CPT/HCPCS: 82043; 82570

== ENCOUNTER 2023-08-21 09:49 | Outpatient (AMB) | payer MEDICAID, SELFPAY ==
[2023-08-21 10:01] VITALS: BP 122/68; PULSE 74; TEMP 36.8; O2SAT 95; BMI 36.8
--- NOTE | 2023-08-21 10:01 | MHC.OFFVIS ---
Intake Vital Signs 08/21/23 10:01 Height 5 ft 5 in Weight 220 lb 14.451 oz BMI 36.8 BP 122/68 Blood Pressure Location Rt brachial Position Sitting Pulse 74 Pulse Source Pulse Oximeter Temp 98.2 F Temp Source Skin Pulse Oximetry (%) 95 Intake Visit Reasons: RA Intake Note: Pt seen today for RA follow up and test results. Mechanical Manufacturing Engineer Required: Yes Mechanical Manufacturing Engineer Name: Jessi Ann [id number] Accompanied by: Self / Same As Patient Allergies No Known Allergies [No Known Allergies*] Allergy (Verified 08/21/23 10:03) Medication List - Last Reconciled 08/21/23 by Juma Reddy MD acetaminophen 500 mg PO Q6H PRN albuterol sulfate 90 mcg/actuation (Ventolin HFA) 2 puffs inhalation Q6H PRN aspirin 81 mg PO DAILY cholecalciferol (vitamin D3) (Vitamin D3) 50 mcg PO QAM cyclobenzaprine 5 mg PO Q8H PRN dextran 70-hypromellose 0.1-0.3 % (Lubricating Tears) 1 drp ophthalmic (eye) TID PRN diclofenac sodium 1% 2 grams topical QID ferrous sulfate (FeroSul) 325 mg PO BID hydrochlorothiazide 25 mg PO DAILY levothyroxine 200 mcg PO DAILY levothyroxine 25 mcg PO QAM lidocaine 5% 0 patches topical lisinopril 5 mg PO QAM loratadine 10 mg PO DAILY PRN paroxetine HCl 20 mg PO DAILY prednisolone acetate 1% 1 drp ophthalmic-Right QID rosuvastatin 10 mg PO BEDTIME sennosides (senna) 8.6 mg PO PRN sodium chloride 0.65% (Deep Sea Nasal) 2 sprays intranasal tramadol 50 mg PO Q6H PRN triamcinolone acetonide 0.1% appl topical triamcinolone acetonide 0.1% topical BID venlafaxine ER 37.5 mg PO QAM zolpidem 10 mg PO BEDTIME PRN HPI HPI Comments History of Present Illness Details 57-year-old female with seropositive RA not on any DMARD returns for follow-up. Patient states that she gets bilateral hand pain weakness with activity she, she has burning, tingling and numbness of her hands, especially at night, this is improved with wrist splints. She was found to have carpal tunnel syndrome years ago and surgery was recommended and patient refused. Initial history: This is a 57-year-old female with a past medical history of rheumatoid arthritis who presents as a new patient. Back in 2014 patient was found to have positive rheumatoid factor and anti CCP in high titers. She was on methotrexate in the past and patient had stopped methotrexate without worsening of her symptoms. She has history of bilateral carpal tunnel syndrome since 2006 but she refused surgery. Patient continues to have diffuse pain everywhere. The majority of her pain is in her lower back with intermittent radiation to her lower extremities. She has numbness of her fingers especially the left index. She has morning stiffness lasting 30 minutes. [facility] Medical History Fibromyalgia Anxiety and depression Bilateral carpal tunnel syndrome Type 2 diabetes mellitus Essential hypertension Sjogren's syndrome Rheumatoid arthritis involving multiple sites with positive rheumatoid factor Acquired hypothyroidism Cervical radiculopathy Lumbar radiculopathy Asthma Surgical History H/O gastric bypass Hx of cataract extraction No history of previous surgery Family History Mother Arthritis Father No problems noted. Other Medical history unknown Social History Household Members: None Alcohol intake: never Patient Tobacco Use Status: Never used Tobacco Current occupational status: disabled Review of Systems Musc Reports back pain, Reports arthralgias, Reports joint swelling, Reports limited range of motion, Reports numbness, Reports radiating pain into limb, Reports stiffness and Reports tingling Neuro Reports numbness and Reports tingling Psych Reports abnormal sleep pattern and Reports anxiety Physical Exam Vital Signs: Last Vital Signs Temp 98.2 F 08/21/23 10:01 Pulse 74 08/21/23 10:01 BP 122/68 08/21/23 10:01 Pulse Ox 95 08/21/23 10:01 BMI result Body Mass Index 36.8 Const General: cooperative, healthy appearing and comfortable Nutritional Appearance: obese morbidly obese Orientation/consciousness: patient oriented x3 Limitations: no limitations HEENT Head: Yes normocephalic and Yes atraumatic Mouth: moist mucous membranes Resp Effort & Inspection: normal respiratory effort and able to speak in complete sentences Auscultation: clear to auscultation bilaterally Cardio Rate: regular rate Rhythm: regular rhythm GI Palpation (GI): Soft to palpation and nontender Neuro General: patient oriented x3 Extrem Other: Mild osteoarthritic changes of both hands without swollen joints No wrist pain with full flexion and extension Few tender DIPs Strongly positive Tinel sign bilaterally Positive straight leg raise test on the right Mild bilateral knee pain with full flexion Negative MTP squeeze test bilaterally Results Reviewed Results Reviewed: Labs 2014 RF 90 (<15) CCP >250 14.3.3 >20 (<0.2) SSa 6.9 (<1.0) SSb -ve TPO +++ Thyroglobulin +++ DsDNA negative C3 and C4 normal Assessment & Plan Assessment & Plan (1) Cyclic citrullinated peptide (CCP) antibody positive: Code(s): R76.8 - Other specified abnormal immunological findings in serum Plan: This is a 57-year-old female who presents for evaluation of rheumatoid arthritis. She was diagnosed with rheumatoid arthritis more than 10 years ago and was on methotrexate for some time. She stopped her methotrexate years ago without worsening of her symptoms. She has positive anti CCP antibody in high titers and positive rheumatoid factor and high titers in the past. There is no significant synovitis upon evaluation today. Her inflammatory markers are normal, updated hands, wrists, ankles, feet x-rays without erosive changes. There is no active disease. I do not see a need to restart DMARDs. Follow-up in 1 year (2) Lumbar radiculopathy: Code(s): M54.16 - Radiculopathy, lumbar region Plan: Was evaluated by Pain Management and referred for physical therapy, she has not started physical therapy yet, she has gone to 4 sessions of acupuncture with little benefit. (3) Bilateral carpal tunnel syndrome: Code(s): G56.03 - Carpal tunnel syndrome, bilateral upper limbs Plan: This seems to be the main problem in her hands. Diagnosed since 2006. Patient refused surgery. She continues to use wrist splints as they provide some relief, she has strongly positive Tinel sign in both hands. I discussed complications of untreated carpal tunnel syndrome. Patient does not want to be evaluated by hand surgery. Advised patient to let us know if she wants us to refer her to a hand surgeon Plan I spent 27 minutes reviewing patient's chart, evaluating patient, counseling patient and documenting in the chart Coding Level of Care Code Est Pt Level 4 (57387) Diagnoses Cyclic citrullinated peptide (CCP) antibody positive R76.8 Lumbar radiculopathy M54.16 Bilateral carpal tunnel syndrome G56.03
== END 2023-08-21 10:29 | disposition home or self-care (01) ==
PROVIDERS: PCP Internal Medicine; Visit Provider Student in an Organized Health Care Education/Training Program
DX: R76.0 Raised antibody titer (principal); M54.16 Radiculopathy, lumbar region; G56.03 Carpal tunnel syndrome, bilateral upper limbs
CPT/HCPCS: 99213

== ENCOUNTER → 2023-08-21 09:49 | Outpatient (BNVA) | payer MEDICAID, SELFPAY | PROVIDERS: PCP Internal Medicine; Visit Provider Student in an Organized Health Care Education/Training Program | DX: R76.8 Other specified abnormal immunological findings in serum (principal); M54.16 Radiculopathy, lumbar region; G56.03 Carpal tunnel syndrome, bilateral upper limbs | CPT/HCPCS: 99212 ==

== ENCOUNTER 2023-09-22 18:59 | Outpatient (REF) | payer MEDICAID, SELFPAY ==
[2023-09-25 03:53] LABS: HPV mRNA E6/E7 rflx Not Detected (Not Detected)
[2023-09-25 10:55] LABS: C. trachomatis RNA TMA NOT DETECTED (NOT DETECTED); N. gonorrhoeae RNA TMA NOT DETECTED (NOT DETECTED); Trichomonas (NAAT) NOT DETECTED (NOT DETECTED)
== END 2023-09-22 19:00 | disposition home or self-care (01) ==
LOC: HO.HHCLNP 18:59
PROVIDERS: Visit Provider Internal Medicine
DX: Z01.419 Encounter for gynecological examination (general) (routine) without abnormal findings (principal)
CPT/HCPCS: 36415; 87491; 87591; 87624; 87661; 88142

== ENCOUNTER 2024-02-12 09:25 | Outpatient (REF) | payer MEDICAID, SELFPAY ==
--- NOTE | ~2024-02-12 | MM_ITS ---
EXAMINATION: MM DIAGNOSTIC DIGITAL BREAST TOMOSYNTHESIS, BILATERAL US BREAST LIMITED, RIGHT MAMMOGRAPHY: CLINICAL INFORMATION: 58-year-old female complaining of 1 year of palpable abnormality right breast 9:00 axis which is mildly tender at times. Patient also due for bilateral screening. COMPARISON: Mammography: 04/21/2023, 08/31/2021, 03/09/2018, 02/18/2017 TECHNIQUE: Digital breast tomosynthesis is performed in both the craniocaudal and mediolateral oblique views along with computer-aided detection (CAD). Synthesized 2D images are generated from the tomosynthesis. In addition to standard views, a full-field right mediolateral view was obtained, as well as spot compression 3-D right MLO view. Added full-field right CC, right MLO, left CC, and left MLO views were obtained. FINDINGS: There are scattered areas of fibroglandular density (ACR BI-RADS breast composition Category b). There are no significant masses, abnormal calcifications, or other abnormalities. Parenchymal pattern is similar to prior studies. There is no developing density or architectural abnormality. There are mild vascular calcifications and a few scattered benign calcifications in both breasts. Mild parenchymal asymmetry in the upper outer left breast has been stable on numerous prior exams and is attributable to normal tissue density. The axilla and skin contours are unremarkable. No significant changes. There is no mammographic abnormality in the region of palpable concern as marked by the patient in the right breast 9:00 axis. There are a few normal-appearing low axillary lymph nodes present. ULTRASOUND: CLINICAL INFORMATION: As above. COMPARISON: No prior. TECHNIQUE: Targeted sonographic evaluation was performed using a high frequency linear transducer. Attention was given to the 9:00 axis, upper outer quadrant right breast in the area of palpable concern. Selected archived documentation. FINDINGS: RIGHT BREAST: There is a mixture of fatty and fibroglandular tissue. No suspicious mass is seen. There is no pathologic acoustic shadowing. There is no axillary adenopathy. No definite correlate to the palpable focus is identified sonographically. MM/MM tomosynthesis diagnostic BI IMPRESSION: There are no findings suspicious for malignancy in either breast. The palpable focus of abnormality in the 9:00 axis right breast has no ultrasound or mammographic correlate. Clinical management is recommended. There are benign findings in both breasts. OVERALL ASSESSMENT: Mammography: BI-RADS 2 - Benign Findings Ultrasound: BI-RADS 2 - Benign Findings RECOMMENDATION: 1. Patient should be managed based on the clinical impression. 2. Otherwise, routine annual screening mammography. This patient's information was entered into a reminder system with a target due date for their next mammogram.
== END 2024-02-12 09:26 | disposition home or self-care (01) ==
LOC: HO.MAMMO 09:25
PROVIDERS: PCP Internal Medicine; Visit Provider Internal Medicine
DX: N63.15 Unspecified lump in the right breast, overlapping quadrants (principal)
CPT/HCPCS: 76642; 77062; 77066

== ENCOUNTER → 2024-02-12 10:00 | Outpatient (BNV) | payer MEDICAID, SELFPAY | PROVIDERS: PCP Internal Medicine; Visit Provider Radiology Diagnostic Radiology | DX: R92.323 Mammographic fibroglandular density, bilateral breasts (principal); R92.1 Mammographic calcification found on diagnostic imaging of breast | CPT/HCPCS: 76642; 77062; 77066 ==

== ENCOUNTER 2024-03-02 11:07 | Outpatient (AMB) | payer MEDICAID, SELFPAY ==
--- NOTE | 2024-03-02 11:21 | MHC.OFFVIS ---
Intake Vital Signs 03/02/24 11:22 Height 5 ft 5 in Weight 218 lb BMI 36.3 BP 135/66 Blood Pressure Location Rt brachial Position Sitting Pulse 77 Intake Visit Reasons: Lipoma of right breast Intake Note: This patient presents for an assessment for Lipoma of right breast. Pt c/o; reports mass of right breast, reports occasional stabbing pain. Certified Endoscopy Technician Required: Yes Certified Endoscopy Technician Language: Yi Information Interpreted: non-clinical & clinical Accompanied by: Self / Same As Patient Allergies No Known Allergies [No Known Allergies*] Allergy (Verified 03/02/24 11:30) Medication List - Last Reconciled 03/02/24 by Devyn Phipps MD acetaminophen 500 mg PO Q6H PRN albuterol sulfate 90 mcg/actuation (Ventolin HFA) 2 puffs inhalation Q6H PRN aspirin 81 mg PO DAILY cholecalciferol (vitamin D3) (Vitamin D3) 50 mcg PO QAM cyclobenzaprine 5 mg PO Q8H PRN dextran 70-hypromellose 0.1-0.3 % (Lubricating Tears) 1 drp ophthalmic (eye) TID PRN diclofenac sodium 1% 2 grams topical QID ferrous sulfate (FeroSul) 325 mg PO BID hydrochlorothiazide 25 mg PO DAILY levothyroxine 200 mcg PO DAILY levothyroxine 25 mcg PO QAM lidocaine 5% 0 patches topical lisinopril 5 mg PO QAM loratadine 10 mg PO DAILY PRN paroxetine HCl 20 mg PO DAILY prednisolone acetate 1% 1 drp ophthalmic-Right QID rosuvastatin 10 mg PO BEDTIME sennosides (senna) 8.6 mg PO PRN sodium chloride 0.65% (Deep Sea Nasal) 2 sprays intranasal tramadol 50 mg PO Q6H PRN triamcinolone acetonide 0.1% appl topical triamcinolone acetonide 0.1% topical BID venlafaxine ER 37.5 mg PO QAM zolpidem 10 mg PO BEDTIME PRN HPI Lipoma of right breast HPI Details 58-year-old female referred for a question of a lipoma on the right breast. She describes vague sharp pain on the lateral aspect of the right breast on and off as well as what she says is a small lump that is not there all the time. She denies any other breast or nipple changes. She had her menarche at age of 13. Her 1st was age of 17. She had 4 pregnancies. She had menopause at age of 49. She denies any immediate family member with breast cancer. Actually she had had a mammogram last week which was unremarkable. [facility] Medical History (Updated 03/02/24 @ 11:48 by Devyn Phipps MD) Breast pain Fibromyalgia Anxiety and depression Bilateral carpal tunnel syndrome Type 2 diabetes mellitus Essential hypertension Sjogren's syndrome Rheumatoid arthritis involving multiple sites with positive rheumatoid factor Acquired hypothyroidism Cervical radiculopathy Lumbar radiculopathy Asthma Surgical History H/O gastric bypass Hx of cataract extraction No history of previous surgery Family History Mother Arthritis Father No problems noted. Other Medical history unknown Social History Household Members: None Alcohol intake: never Patient Tobacco Use Status: Never used Tobacco Current occupational status: disabled Female Reproductive History Menstrual Total pregnancies: 4 Full term: 3 Ab spontaneous: 1 Review of Systems Const Denies chills and Denies fever(s) Card Denies chest pain, Denies dyspnea and Denies dyspnea on exertion Resp Denies cough, Denies dyspnea and Denies dyspnea on exertion GI Denies hematochezia and Denies change in bowel habits Denies hematuria Musc Denies back pain and Denies limited range of motion Neuro Denies focal weakness and Denies convulsions Psych Denies depression and Denies mood swings Physical Exam Vital Signs: Last Vital Signs Pulse 77 03/02/24 11:22 BP 135/66 03/02/24 11:22 BMI result Body Mass Index 36.3 Const Other: Morbidly obese General: comfortable and no acute distress Orientation/consciousness: patient oriented x3 Neck Neck: Yes no lymphadenopathy Chest Other: Large pendulous breasts, no palpable breast masses, no nipple or skin changes, no axillary lymphadenopathy Resp Auscultation: clear to auscultation bilaterally Cardio Rhythm: regular rhythm GI Palpation (GI): Soft to palpation, nontender and no guarding Neuro General: patient oriented x3 Assessment & Plan Assessment & Plan (1) Breast pain: Code(s): N64.4 - Mastodynia Plan: She describes localized pain on an area of the right breast laterally. I do not feel any palpable breast mass or any nipple or skin changes. There has no axillary lymphadenopathy I have reviewed her mammogram from weeks ago and this was unremarkable. There were no suspicious masses seen I assured her about my above findings. I did tell her that there is no fecal intervention necessary at this time. She may take pain medication for occasional breast pain I did tell her that if she notices any of his breast mass, she can come back to the office to be re-evaluated. Coding Level of Care Code New Pt Level 3 (38508) Diagnoses Breast pain N64.4
[2024-03-02 11:22] VITALS: BP 135/66; PULSE 77; BMI 36.3
== END 2024-03-02 11:49 | disposition home or self-care (01) ==
PROVIDERS: PCP Internal Medicine; Referring Provider Internal Medicine; Visit Provider Surgery
DX: N64.4 Mastodynia (principal)
CPT/HCPCS: 99203

== ENCOUNTER → 2024-03-02 11:07 | Outpatient (BNVA) | payer MEDICAID, SELFPAY | PROVIDERS: PCP Internal Medicine; Referring Provider Internal Medicine; Visit Provider Surgery | DX: N64.4 Mastodynia (principal) | CPT/HCPCS: 99202 ==

== ENCOUNTER 2024-06-26 14:28 | Emergency (ER) | payer MEDICAID, SELFPAY ==
--- NOTE | ~2024-06-26 | XR_ITS ---
EXAMINATION: XR CHEST CLINICAL INFORMATION: Chest pain. Cough. Shortness of breath COMPARISON: Frontal view 09/26/21 TECHNIQUE: 2 views of the chest were obtained. FINDINGS: The cardiac size is within normal limits. There is calcification of the aortic arch. The central vessels are prominent. Minor fine interstitial prominence greatest in the perihilar regions. No alveolar edema or dense consolidation. No pleural fluid or pneumothorax. There is mild elevation of the right hemidiaphragm anteriorly. Mild broad convex right spinal curve. There are osteophytes in the spine. XR/XR chest 2V IMPRESSION: No focal pneumonia or alveolar edema. Fine interstitial prominence is nonspecific. There was some interstitial prominence on 09/26/21
[2024-06-26 14:29] VITALS: BP 152/87; PULSE 79; RESP 20; TEMP 36; O2SAT 100; BMI 37.1
--- NOTE | 2024-06-26 14:30 | ED_ITS ---
HPI - General Adult General Chief complaint: Upper Respiratory Symptoms Stated complaint: Covid symptoms Time Seen by Provider: 06/26/24 15:17 History of Present Illness HPI narrative: Patient complains of cough productive of sputum developing over last 3 or 4 days, there is no shortness of breath, there is pain in the right lower rib area of the chest wall, no abdominal pain no nausea vomiting or diarrhea, she is eating normally, no other chest pain no pleuritic chest pain, no calf pain no leg swelling No headache no sore throat no rash Related Data Home Medications ?Medication ?Instructions ?Recorded ?Confirmed albuterol sulfate 90 mcg/actuation 2 puff inhalation Q6H PRN wheezing 07/13/23 03/02/24 aerosol inhaler (Ventolin HFA) aspirin 81 mg tablet,delayed 81 mg PO DAILY 07/13/23 03/02/24 release cholecalciferol (vitamin D3) 50 50 mcg PO QAM 07/13/23 03/02/24 mcg (2,000 unit) capsule (Vitamin D3) cyclobenzaprine 5 mg tablet 5 mg PO Q8H PRN muscle spasm 07/13/23 03/02/24 diclofenac sodium 1 % topical gel 2 g topical QID 07/13/23 03/02/24 ferrous sulfate 325 mg (65 mg 325 mg PO BID 07/13/23 03/02/24 iron) tablet (FeroSul) hydrochlorothiazide 25 mg tablet 25 mg PO DAILY 07/13/23 03/02/24 lidocaine 5 % topical patch 0 patch topical 07/13/23 03/02/24 lisinopril 5 mg tablet 5 mg PO QAM 07/13/23 03/02/24 loratadine 10 mg tablet 10 mg PO DAILY PRN 07/13/23 03/02/24 paroxetine HCl 20 mg tablet 20 mg PO DAILY 07/13/23 03/02/24 prednisolone acetate 1 % eye 1 drp ophthalmic-Right QID 07/13/23 03/02/24 drops,suspension rosuvastatin 10 mg tablet 10 mg PO BEDTIME 07/13/23 03/02/24 sennosides 8.6 mg tablet (senna) 8.6 mg PO PRN 07/13/23 03/02/24 sodium chloride 0.65 % nasal spray 2 spray intranasal congestion 07/13/23 03/02/24 aerosol (Deep Sea Nasal) triamcinolone acetonide 0.1 % topical BID 07/13/23 03/02/24 topical ointment zolpidem 10 mg tablet 10 mg PO BEDTIME PRN insomnia 07/13/23 03/02/24 levothyroxine 200 mcg tablet 200 mcg PO DAILY 07/22/23 03/02/24 acetaminophen 500 mg tablet 500 mg PO Q6H PRN 08/21/23 03/02/24 dextran 70-hypromellose 0.1 %-0.3 1 drp ophthalmic (eye) TID PRN 08/21/23 03/02/24 % eye drops (Lubricating Tears) levothyroxine 25 mcg tablet 25 mcg PO QAM 08/21/23 03/02/24 triamcinolone acetonide 0.1 % appl topical pain 08/21/23 03/02/24 topical cream venlafaxine 37.5 mg 37.5 mg PO QAM 08/21/23 03/02/24 capsule,extended release 24 hr Previous Rx's ?Medication ?Instructions ?Recorded tramadol 50 mg tablet 50 mg PO Q6H PRN pain #20 tabs 10/11/21 benzonatate 200 mg capsule 200 mg PO BID PRN cough #14 caps 06/26/24 doxycycline hyclate 100 mg capsule 100 mg PO BID 7 days #14 caps 06/26/24 Allergies Allergy/AdvReac Type Severity Reaction Status Date / Time No Known Allergies Allergy Verified 06/26/24 14:32 [No Known Allergies*] [facility] Past Medical History Source: nursing notes reviewed Medical History (Updated 06/26/24 @ 18:04 by ABDOUL Medellin) Breast pain Fibromyalgia Anxiety and depression Bilateral carpal tunnel syndrome Type 2 diabetes mellitus Essential hypertension Sjogren's syndrome Rheumatoid arthritis involving multiple sites with positive rheumatoid factor Acquired hypothyroidism Cervical radiculopathy Lumbar radiculopathy Asthma Surgical History H/O gastric bypass Hx of cataract extraction No history of previous surgery Family History Family History Mother Arthritis Father No problems noted. Other Medical history unknown Social History Social History Household Members: None Alcohol intake: never Patient Tobacco Use Status: Never used Tobacco Advance Directives: No Advance Directives Information Provided: Yes Do you have a plan to hurt others: No Plan Current occupational status: disabled Physical Exam ED Vital Signs: Vital Signs - 24 hr 06/26/24 14:29 Temperature 96.8 F Pulse Rate 79 Respiratory Rate 20 Blood Pressure 152/87 H Pulse Oximetry 100 Oxygen Delivery Method Room Air BMI result Body Mass Index 37.1 General appearance no distress Eyes no redness or discharge The pharynx is clear without redness swelling or exudate membranes are moist voice is normal Neck is supple The chest is clear to auscultation with full symmetric equal breath sounds Heart no murmur auscultated abdomen is soft completely nontender no rebound no guarding Extremities no calf tenderness or swelling no pedal edema, full range of motion x4 Skin no rash seen Course Course Course Narrative: This is a rapid medical exam performed by Austin Lewis NP: Additional HPI, ROS, PE not included below will be deferred to primary provider. Patient is a 58-year-old female with history of T2DM, HTN, Asthma, Sjogren's syndrome, RA, acquired hypothyroidism, lumbar spondylosis, fibromyalgia, CCP antibody positive presenting to the emergency department with complaint of productive cough, fevers, chest pain with coughing since Thursday night. Pain radiating to abdomen since last night due to coughing. Unknown sick contacts. Plan: viral serology, EKG, cxr Serology was negative for COVID or flu, negative for strep Chest x-ray showed no focal pneumonia, there was a fine interstitial prominence which was nonspecific that was seen in a prior x-ray 2 years ago on 09/26/2021, no acute findings When patient coughs the pain sometimes shoots into the right lower rib area there is no other chest pain or shortness of breath EKG was done which showed a normal sinus rhythm ventricular rate 93, no acute ST or ischemic changes, when compared to prior no acute new changes The patient was treated for bronchitis with doxycycline, and was discharged breathing comfortably Medical Decision Making Lab Data Labs: Lab Results 06/26/24 Range/Units 15:25 Influenza Type A (PCR) NEGATIVE (Negative) Influenza Type B (PCR) NEGATIVE (Negative) RSV RNA Qual (PCR) NEGATIVE (Negative) SARS-CoV-2 RNA (RT-PCR) NEGATIVE (Negative) S. pyogenes GrpA JESSICA Negative (Negative) Discharge Plan Discharge Clinical Impression: Bronchitis Patient Disposition: Home, Self-Care Additional Instructions: Your chest x-ray did not show any new pneumonia Your symptoms were not concerning for an emergent heart problem , your EKG was similar to previous You tested negative for COVID and flu I wrote a prescription for doxycycline Return any time for difficulty breathing any worse condition or any concerns Prescriptions: New benzonatate 200 mg capsule 200 mg PO BID PRN (Reason: cough) Qty: 14 0RF doxycycline hyclate 100 mg capsule 100 mg PO BID 7 Days Qty: 14 0RF No Action tramadol 50 mg tablet 50 mg PO Q6H PRN (Reason: pain) Qty: 20 0RF cyclobenzaprine 5 mg tablet 5 mg PO Q8H PRN (Reason: muscle spasm) albuterol sulfate [Ventolin HFA] 90 mcg/actuation HFA aerosol inhaler 2 puff inhalation Q6H PRN (Reason: wheezing) cholecalciferol (vitamin D3) [Vitamin D3] 50 mcg (2,000 unit) capsule 50 mcg PO QAM diclofenac sodium 1 % gel 2 g topical QID rosuvastatin 10 mg tablet 10 mg PO BEDTIME Deep Sea Nasal 0.65 % aerosol,spray 2 spray intranasal loratadine 10 mg tablet 10 mg PO DAILY PRN hydrochlorothiazide 25 mg tablet 25 mg PO DAILY lisinopril 5 mg tablet 5 mg PO QAM lidocaine 5 % adhesive patch,medicated 0 patch topical paroxetine HCl 20 mg tablet 20 mg PO DAILY aspirin 81 mg tablet,delayed release (DR/EC) 81 mg PO DAILY sennosides [senna] 8.6 mg tablet 8.6 mg PO PRN zolpidem 10 mg tablet 10 mg PO BEDTIME PRN (Reason: insomnia) triamcinolone acetonide 0.1 % ointment topical BID prednisolone acetate 1 % drops,suspension 1 drp ophthalmic-Right QID ferrous sulfate [FeroSul] 325 mg (65 mg iron) tablet 325 mg PO BID levothyroxine 200 mcg tablet 200 mcg PO DAILY venlafaxine 37.5 mg capsule,extended release 24hr 37.5 mg PO QAM levothyroxine 25 mcg tablet 25 mcg PO QAM Lubricating Tears 0.1-0.3 % drops 1 drp ophthalmic (eye) TID PRN triamcinolone acetonide 0.1 % cream topical acetaminophen 500 mg tablet 500 mg PO Q6H PRN Print Language: Slovak
--- NOTE | 2024-06-26 14:30 | ECG_ITS ---
Test Reason : CHEST PAIN Blood Pressure : / mmHG Vent. Rate : 093 BPM Atrial Rate : 093 BPM P-R Int : 174 ms QRS Dur : 092 ms QT Int : 372 ms P-R-T Axes : 080 -37 009 degrees QTc Int : 462 ms Normal sinus rhythm Left axis deviation Borderline ECG When compared with ECG of 10-OCT-2021 07:26, No significant change was found Referred By: Cara Lewis Electronically Signed By:GRACIELA SAENZ
[2024-06-26 15:47] LABS: IDNOW Serial# 08D9AD1C; Strep A Nucleic Acid Negative (Negative)
[2024-06-26 16:25] LABS: Influenza A PCR NEGATIVE (Negative); Influenza B PCR NEGATIVE (Negative); Resp Syncy Virus RNA Qual PCR NEGATIVE (Negative); SARS COV2 PCR INHOUSE NEGATIVE (Negative)
[2024-06-26] MEDS: Doxycycline Monohydrate 100 MG CAPSULE PO (17:55)
[2024-06-26 18:19] VITALS: BP 152/87; PULSE 79; RESP 20; TEMP 36; O2SAT 100
== END 2024-06-26 18:19 | disposition home or self-care (01) ==
PROVIDERS: Registered Nurse Emergency; Emergency Provider Emergency Medicine; PCP Internal Medicine
DX: J40 Bronchitis, not specified as acute or chronic (principal); R05.9 Cough, unspecified; R07.89 Other chest pain; Z79.899 Other long term (current) drug therapy; Z03.818 Encounter for observation for suspected exposure to other biological agents ruled out
CPT/HCPCS: 0241U; 71046; 87651; 93005; 99283

== ENCOUNTER → 2024-06-26 14:30 | Outpatient (BNV) | payer MEDICAID, SELFPAY | PROVIDERS: Emergency Provider Emergency Medicine; PCP Internal Medicine; Visit Provider Internal Medicine | DX: R07.9 Chest pain, unspecified (principal) | CPT/HCPCS: 93010 ==

== ENCOUNTER 2024-07-13 15:14 | Outpatient (REF) | payer MEDICAID, SELFPAY ==
[2024-07-13 16:19] LABS: Hematocrit 38.5 % (37.0-47.0); Mean Corpuscular HGB Conc 33.8 g/dl (31.0-35.0); Mean Corpuscular Hemoglobin 30.3 pg (27.0-33.0); Mean Corpuscular Volume 89.7 fL (80.0-98.0); Mean Platelet Volume 11.1 fL (9.4-12.3); Platelet Count 326 X10*3/uL (160-400); Red Blood Count 4.29 X10*6/uL (4.20-5.50); Red Cell Distribution Width 13.4 % (11.0-16.0); White Blood Count 12.6 X10*3/uL (4.8-10.8)
[2024-07-13 16:36] LABS: Alanine Aminotransferase 15 U/L (0-31); Albumin Level 4.1 g/dL (3.5-5.0); Alkaline Phosphatase 79 U/L (39-117); Anion Gap 13 (12-20); Aspartate Amino Transferase 22 U/L (5-31); Bilirubin Total 0.6 mg/dL (0.0-1.0); Blood Urea Nitrogen 14 mg/dL (9-16); Calcium 9.7 mg/dL (8.4-10.2); Carbon Dioxide 27 mmol/L (22-29); Chloride 103 mmol/L (96-108); Cholesterol 220 mg/dL (<200); Estimated Glomerular Filt Rate > 60; Glucose Random 121 mg/dL (60-115); HDL Cholesterol 59 mg/dL (>40); LDL Cholesterol Calculated 134 mg/dL (<100); Potassium 3.2 mmol/L (3.3-5.1); Sodium 140 mmol/L (135-145); Total Protein 7.6 g/dL (6.5-8.0); Triglycerides 135 mg/dL (<150)
[2024-07-13 16:54] LABS: Creatinine Urine 115.51 mg/dL; Microalbum/Creatinine Ratio Ur 24.2 ug/mg cr (<30)
[2024-07-13 16:56] LABS: Atypical Lymph Absolute Manual 0.5 x10*3/uL; Atypical Lymphs Percent Manual 4 % (0-6); Lymphocytes Absolute Manual 4.8 X10*3/uL (1.2-4.9); Lymphocytes Percent Manual 38 % (20-40); Monocytes Absolute Manual 1.1 X10*3/uL (0.1-1.2); Monocytes Percent Manual 9 % (2-11); Neutrophils Percent Manual 49 % (45-73); Platelet Estimate NORMAL (NORMAL); Platelet Morphology Comment NORMAL; RBC Morphology NORMAL
[2024-07-13 16:57] LABS: Neutrophils Absolute Manual 6.2 X10*3/uL (2.0-8.3)
[2024-07-13 18:43] LABS: Reflex LDLD? No
== END 2024-07-13 15:15 | disposition home or self-care (01) ==
LOC: HO.HHCL 15:14
PROVIDERS: Visit Provider Internal Medicine
DX: I10 Essential (primary) hypertension (principal); E11.9 Type 2 diabetes mellitus without complications
CPT/HCPCS: 36415; 80053; 80061; 82043; 82570; 85007; 85027

== ENCOUNTER 2024-12-06 17:37 | Emergency (ER) | payer MEDICAID, SELFPAY ==
--- NOTE | ~2024-12-06 | XR_ITS ---
CLINICAL HISTORY: left sided chest pain 2 view chest x-ray Comparison: CR/SR - XR CHEST 2V - 06/26/24 14:46 EDT Findings: No consolidation or effusion. Left retrocardiac/ basilar subsegmental atelectasis. Normal size heart. No acute fracture. IMPRESSION: 1. No acute findings. This document has been electronically signed by: Irwin Dubose MD on 12/06/2024 19:13:50
[2024-12-06 17:39] VITALS: BP 156/70; PULSE 96; O2SAT 100
--- NOTE | 2024-12-06 17:39 | ECG_ITS ---
Test Reason : chest pain Blood Pressure : */* mmHG Vent. Rate : 90 BPM Atrial Rate : 90 BPM P-R Int : 168 ms QRS Dur : 94 ms QT Int : 362 ms P-R-T Axes : 40 -24 27 degrees QTcB Int : 442 ms Normal sinus rhythm Normal ECG When compared with ECG of 26-Jun-2024 15:02, No significant change was found Referred By: Generic ED Physician Electronically Signed By: ANDREA JACOB MD
--- NOTE | 2024-12-06 18:04 | ED_ITS ---
HPI - Chest Pain General Chief Complaint: Chest Pain Stated Complaint: L sided chest pain Time Seen by Provider: 12/07/24 03:04 History of Present Illness ED Provider: Anna SEBASTIAN narrative: The patient says that she developed left-sided chest pain that woke her early in the morning. 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 While she was there she had herself evaluated for the left-sided chest pain and was advised to come to the emergency room for further evaluation. The patient says that she is had episodes of similar pain several times in the past. No fever, sweats, chills. No cough or sputum. No pain or swelling in her legs. The pain is worse when she takes a deep breath and when she moves her left arm. She says that she was carrying her grandchild recently and she wonders if she might have hurt herself carrying her grandchild. Related Data Home Medications ?Medication ?Instructions ?Recorded ?Confirmed albuterol sulfate 90 mcg/actuation 2 puff inhalation Q6H PRN wheezing 07/13/23 03/02/24 aerosol inhaler (Ventolin HFA) aspirin 81 mg tablet,delayed 81 mg PO DAILY 07/13/23 03/02/24 release cholecalciferol (vitamin D3) 50 50 mcg PO QAM 07/13/23 03/02/24 mcg (2,000 unit) capsule (Vitamin D3) cyclobenzaprine 5 mg tablet 5 mg PO Q8H PRN muscle spasm 07/13/23 03/02/24 diclofenac sodium 1 % topical gel 2 g topical QID 07/13/23 03/02/24 ferrous sulfate 325 mg (65 mg 325 mg PO BID 07/13/23 03/02/24 iron) tablet (FeroSul) hydrochlorothiazide 25 mg tablet 25 mg PO DAILY 07/13/23 03/02/24 lidocaine 5 % topical patch 0 patch topical 07/13/23 03/02/24 lisinopril 5 mg tablet 5 mg PO QAM 07/13/23 03/02/24 loratadine 10 mg tablet 10 mg PO DAILY PRN 07/13/23 03/02/24 paroxetine HCl 20 mg tablet 20 mg PO DAILY 07/13/23 03/02/24 prednisolone acetate 1 % eye 1 drp ophthalmic-Right QID 07/13/23 03/02/24 drops,suspension rosuvastatin 10 mg tablet 10 mg PO BEDTIME 07/13/23 03/02/24 sennosides 8.6 mg tablet (senna) 8.6 mg PO PRN 07/13/23 03/02/24 sodium chloride 0.65 % nasal spray 2 spray intranasal congestion 07/13/23 03/02/24 aerosol (Deep Sea Nasal) triamcinolone acetonide 0.1 % topical BID 07/13/23 03/02/24 topical ointment zolpidem 10 mg tablet 10 mg PO BEDTIME PRN insomnia 07/13/23 03/02/24 levothyroxine 200 mcg tablet 200 mcg PO DAILY 07/22/23 03/02/24 acetaminophen 500 mg tablet 500 mg PO Q6H PRN 08/21/23 03/02/24 dextran 70-hypromellose 0.1 %-0.3 1 drp ophthalmic (eye) TID PRN 08/21/23 03/02/24 % eye drops (Lubricating Tears) levothyroxine 25 mcg tablet 25 mcg PO QAM 08/21/23 03/02/24 triamcinolone acetonide 0.1 % appl topical pain 08/21/23 03/02/24 topical cream venlafaxine 37.5 mg 37.5 mg PO QAM 08/21/23 03/02/24 capsule,extended release 24 hr Previous Rx's ?Medication ?Instructions ?Recorded tramadol 50 mg tablet 50 mg PO Q6H PRN pain #20 tabs 10/11/21 benzonatate 200 mg capsule 200 mg PO BID PRN cough #14 caps 06/26/24 doxycycline hyclate 100 mg capsule 100 mg PO BID 7 days #14 caps 06/26/24 Allergies Allergy/AdvReac Type Severity Reaction Status Date / Time No Known Allergies Allergy Verified 12/06/24 18:07 [No Known Allergies*] Review of Systems 2 Review of Systems: Yes all other systems are reviewed and are negative PMFSH Past Medical History Medical History (Updated 12/07/24 @ 03:28 by Betito Castillo MD) Breast pain Fibromyalgia Anxiety and depression Bilateral carpal tunnel syndrome Type 2 diabetes mellitus Essential hypertension Sjogren's syndrome Rheumatoid arthritis involving multiple sites with positive rheumatoid factor Acquired hypothyroidism Cervical radiculopathy Lumbar radiculopathy Asthma Surgical History H/O gastric bypass Hx of cataract extraction No history of previous surgery Family History Family History Mother Arthritis Father No problems noted. Other Medical history unknown Social History Social History Household Members: None Alcohol intake: never Patient Tobacco Use Status: Never used Tobacco Current occupational status: disabled Physical Exam 2 Vital Signs: Vital Signs: Last Vital Signs Temp 97.6 F 12/07/24 03:45 Pulse 87 12/07/24 03:45 Resp 20 12/07/24 03:45 BP 127/69 12/07/24 03:45 Pulse Ox 98 12/07/24 03:45 O2 Del Method Room Air 12/07/24 03:45 BMI result Body Mass Index 33.5 Const: Other: The patient is awake and alert with a normal mental status. The patient has been resting, apparently comfortable in the stretcher for some time before I saw her. She had had a very long wait in the emergency room prior to an evaluation by a provider. She said she was feeling better. HEENT: Other: Face is symmetrical. Mucous membranes moist. Eyes: General: appearance normal, both eyes and all related structures C onjunctivae: conjunctivae normal Pupils: Equal, round and reactive pupils present EOM: EOMs intact bilaterally Neck: Other: Moving her neck easily Chest: Other: I felt there was left-sided chest wall tenderness. I felt that palpation seemed to reproduce her pain. Resp: Effort & Inspection: normal respiratory effort Auscultation: clear to auscultation bilaterally Cardio: Rate: regular rate Rhythm: regular rhythm Heart sounds: S1 normal heart sound present and S2 normal heart sound present GI: Other: Abdomen is soft and nontender Skin: Other: Skin is dry and unremarkable Neuro: Other: The patient is awake and alert with a normal mental status. She moves her extremities normally. She has a steady gait. Cranial nerves: Yes Equal, round and reactive pupils present Extrem: Other: No calf swelling or tenderness. No asymmetry. No edema. Course Course Course Narrative: This is a Rapid Medical Examination (RME) performed by Maureen Carvalho PA-C in triage. Full HPI, ROS, assessment and treatment plan per primary provider in the Main ED. 59 yo Citizen [place]-speaking female with a history of fibromyalgia, lumbar radiculopathy who presents to the ER from [facility] for evaluation of left lower chest pain that woke her up out of sleep last night. no respiratory symptoms. pain has been constant but is less than it was last night. VSS in triage. pain is reproducible on exam. Plan: EKG, labs, CXR Medical Decision Making Medical Decision Making MDM Narrative: The patient is a 59-year-old woman who presents with left-sided pain that is worse with movement. Clinically the patient's pain seems to be chest wall pain. She has an unremarkable EKG. Undetectable troponin. Unremarkable chest x-ray. The patient was reassured that this seems to be chest wall pain. She will be advised to use ibuprofen and acetaminophen as needed. She should return if worse. She seemed to feel comfortable being discharged. Lab Data 12/06/24 18:14 12/06/24 18:14 Labs: Lab Results 12/06/24 Range/Units 18:14 WBC 6.9 (4.8-10.8) X10*3/uL RBC 4.69 (4.20-5.50) X10*6/uL Hgb 13.8 (12.0-16.0) g/dl Hct 40.3 (37.0-47.0) % MCV 85.9 (80.0-98.0) fL MCH 29.4 (27.0-33.0) pg MCHC 34.2 (31.0-35.0) g/dl RDW 12.9 (11.0-16.0) % Plt Count 267 (160-400) X10*3/uL MPV 10.5 (9.4-12.3) fL Immature Gran % (Auto) 0.6 H (0.0-0.4) % Neut % (Auto) 50.1 (45-73) % Lymph % (Auto) 36.3 (20-40) % [place] % (Auto) 10.1 (2-11) % Eos % (Auto) 2.5 (0-4) % Baso % (Auto) 0.4 (0-2) % Lymph # (Auto) 2.5 (1.2-4.9) X10*3/uL [place] # (Auto) 0.7 (0.1-1.2) X10*3/uL Eos # (Auto) 0.2 (0.0-0.4) X10*3/uL Baso # (Auto) 0.0 (0.0-0.2) X10*3/uL Abs Immat Gran (auto) 0.04 H (0.00-0.03) X10*3/uL Absolute Neuts (auto) 3.5 (2.0-8.3) x10*3/uL Absolute Nucleated RBC 0.000 (0.0-0.012) X10*3/uL Nucleated RBC % (auto) 0.0 (0.0-0.2) /100WBC Sodium 139 (135-145) mmol/L Potassium 3.7 (3.3-5.1) mmol/L Chloride 103 (96-108) mmol/L Carbon Dioxide 29 (22-29) mmol/L Anion Gap 11 L (12-20) BUN 8 L (9-16) mg/dL Creatinine 0.66 (0.5-1.4) mg/dL Estim Creat Clear Calc 103.6 Estimated GFR > 60 Random Glucose 102 (60-115) mg/dL Calcium 9.6 (8.4-10.2) mg/dL Magnesium 1.7 (1.6-2.6) mg/dL Total Bilirubin 0.6 (0.0-1.0) mg/dL Direct Bilirubin 0.2 (0.0-0.5) mg/dL AST 33 H (5-31) U/L ALT 23 (0-31) U/L Alkaline Phosphatase 74 (39-117) U/L Troponin I High Sens < 2.7 (<3.5-17.0) ng/L Total Protein 8.1 H (6.5-8.0) g/dL Albumin 4.1 (3.5-5.0) g/dL Influenza Type A (PCR) NEGATIVE (Negative) Influenza Type B (PCR) NEGATIVE (Negative) RSV RNA Qual (PCR) NEGATIVE (Negative) SARS-CoV-2 RNA (RT-PCR) NEGATIVE (Negative) Discharge Plan Discharge Clinical Impression: Left-sided chest wall pain Patient Disposition: Home, Self-Care Additional Instructions: Your testing in the emergency room today seems reassuring. I suspect the pain is muscular. You may use ibuprofen and acetaminophen as needed for pain. Please return to the emergency room if you feel significantly worse. Prescriptions: No Action tramadol 50 mg tablet 50 mg PO Q6H PRN (Reason: pain) Qty: 20 0RF benzonatate 200 mg capsule 200 mg PO BID PRN (Reason: cough) Qty: 14 0RF doxycycline hyclate 100 mg capsule 100 mg PO BID 7 Days Qty: 14 0RF cyclobenzaprine 5 mg tablet 5 mg PO Q8H PRN (Reason: muscle spasm) albuterol sulfate [Ventolin HFA] 90 mcg/actuation HFA aerosol inhaler 2 puff inhalation Q6H PRN (Reason: wheezing) cholecalciferol (vitamin D3) [Vitamin D3] 50 mcg (2,000 unit) capsule 50 mcg PO QAM diclofenac sodium 1 % gel 2 g topical QID rosuvastatin 10 mg tablet 10 mg PO BEDTIME Deep Sea Nasal 0.65 % aerosol,spray 2 spray intranasal loratadine 10 mg tablet 10 mg PO DAILY PRN hydrochlorothiazide 25 mg tablet 25 mg PO DAILY lisinopril 5 mg tablet 5 mg PO QAM lidocaine 5 % adhesive patch,medicated 0 patch topical paroxetine HCl 20 mg tablet 20 mg PO DAILY aspirin 81 mg tablet,delayed release (DR/EC) 81 mg PO DAILY sennosides [senna] 8.6 mg tablet 8.6 mg PO PRN zolpidem 10 mg tablet 10 mg PO BEDTIME PRN (Reason: insomnia) triamcinolone acetonide 0.1 % ointment topical BID prednisolone acetate 1 % drops,suspension 1 drp ophthalmic-Right QID ferrous sulfate [FeroSul] 325 mg (65 mg iron) tablet 325 mg PO BID levothyroxine 200 mcg tablet 200 mcg PO DAILY venlafaxine 37.5 mg capsule,extended release 24hr 37.5 mg PO QAM levothyroxine 25 mcg tablet 25 mcg PO QAM Lubricating Tears 0.1-0.3 % drops 1 drp ophthalmic (eye) TID PRN triamcinolone acetonide 0.1 % cream topical acetaminophen 500 mg tablet 500 mg PO Q6H PRN Referrals: Rosalba Shin MD [Primary Care Provider] - (Left-sided chest pain) Interventions: ED Discharge Assessment Last Done: 12/07/24 03:45 Discharge Date/Time: 12/07/24 03:45 Print Language: Citizen [place]
[2024-12-06 18:05] VITALS: BP 138/83; PULSE 92; RESP 18; TEMP 36.7; O2SAT 99; BMI 33.5
--- OUTSIDE RECORDS SUMMARY | 2024-12-06 18:09 | XMS_ITS | Encounter Summary ---
Author Organization [employer] Address [address] [facility] [address] [place] [address] Care Team Providers Care Die Barber Name Role Phone Rosalba Shin MD Primary Care Provide r Reason for Visit * Reason Comments Cough Encounter Details Date Type Department Care Team ([facility] Contact Info) Description 11/14/2024 3:40 PM EST Office Visit [facility] [address] [place] [address] Name, MD Gino [address] [place] [phone] Subacute cough (Primary Dx); Exacerbation of asthma, unspecified asthma severity, unspecified whether persistent Social History Tobacco Use Types Packs/Day Years Used Date Smoking Tobacco: Never Passive Smoke Exposure: Never Smokeless Tobacco: Never Alcohol Use Standard Drinks/Week Comments Never 0 (1 standard drink = 0.6 oz pur e alcohol) Depression Answer Date Recorded Patient Health Questionnaire-9 Score 0 08/12/2024 Patient Health Questionnaire-9 Score 0 08/12/2024 Last PHQ-9: Questionnaire Data Not on file 0 08/12/2024 Housing Stability Answer Date Recorded What is your housing situation today? I have sailaja sil 06/20/[address] you li ve. Do you have problems with any of the following? None of the above 06/20/2024 Food Insecurity Answer Date Recorded Within the past 12 months, y ou worried that your food would run out before you got money to buy more: Never True 06/20/2024 Within the past 12 months,th e food you bought just didn't last and you didn't have enough money to get more: Never True 03/2024 Transportation Answer Date Recorded In the past 12 months, has l ack of transportation kept you from medical appts, meetings, work or from getting things needed for daily living? No 06/20/2024 Utilities Answer Date Recorded In the past 12 months, has t he electric, gas, oil or water company threatened to shut off services in your home? No 06/20/2024 Depression Answer Date Recorded Patient Health Questionnaire-2 Score 0 08/12/2024 Internet Access Answer Date Recorded Internet Access Q1 No 07/15/2024 Internet Access Q2 I cannot afford it 07/15/2024 Comments Unknown Sex and Gender Information Value Date Recorded Sex Assigned at Female 09/15/2022 10:14 AM EDT Legal Sex Female 10:14 AM EDT Gender Identity Female 09/15/2022 10:14 AM EDT Sexual Orientation Straight 09/15/2022 10 :14 AM EDT documented as of this encounter Last Filed Vital Signs Vital Sign Reading Time Taken Comments Blood Pressure 128/78 11/14/2024 3:26 PM EST Pulse 94 11/14/2024 3:26 PM EST Temperature 36.3 ??C (97.4 ??F) 11/14/2024 3:26 PM ES T Respiratory Rate 20 11/14/2024 3:26 PM EST Oxygen Saturation 99% 11/14/2024 3:26 PM EST Inhaled Oxygen Concentration - - Weight 93.4 kg (206 lb) 11/14/2024 3:26 PM EST Height 165.1 cm (5' 5 ) 11/14/2024 3:26 PM EST Body Mass Index 34.28 11/14/2024 3:26 PM EST documented in this encounter Progress Notes * Gino Browning MD - 11/14/2024 3:40 PM EST Subjective Patient ID: Kerline Gutierrez is a 59 y.o. female who presents for Cough. Patient presents with 5 days of cough, dyspnea on exertion, wheezing, increased requirement for albuterol. The patient tells me the cough is worse at night. The patient tells me that initially when she started to have the URI symptoms she had runny nose and hoarseness but that has improved. She hasa personal history of asthma. Current inhaler regimen includes Asmanex and albuterol. She is not a smoker. Cough Associated symptoms include shortness of breath and wheezing. Pertinent negatives include no chest pain, chills, fever or sore throat. Review of Systems Constitutional: Negative for chills and fever. HENT: Negative for sore throat. Respiratory: Positive for cough, shortness of breath and wheezing. Cardiovascular: Negative for chest pain, palpitations and leg swelling. Gastrointestinal: Negative for abdominal pain. Visit Vitals BP 128/78 (BP Location: Left arm, Patient Position: Sitting, BP Cuff Size: Large adult) Pulse 94 Temp 97.4 ??F (36.3 ??C) (Temporal) Resp 20 Ht 5' 5 (1.651 m) Wt 206 lb (93.4 kg) SpO2 99% BMI 34.28 kg/m?? Smoking Status Never BSA 2.07 m?? Objective Physical Exam Constitutional: Appearance: Normal appearance. Cardiovascular: Rate and Rhythm: Normal rate and regular rhythm. Heart sounds: No murmur heard. No gallop. Pulmonary: Effort: Pulmonary effort is normal. No respiratory distress. Breath sounds: Wheezing present. Musculoskeletal: Right lower leg: No edema. Left lower leg: No edema. Neurological: Mental Status: She is alert. Latest Reference Range & Units 11/14/24 15:45 Rapid Strep A Screen Negative, None Detected Negative Influenza A Negative, Indeterminate Negative Influenza B Negative, Indeterminate Negative Rapid COVID Ag Negative Assessment/Plan Diagnoses and all orders for this visit: Subacute cough Comments: Patient symptoms are consistent with asthma exacerbation following a viral URI. Today rapid COVID, flu and strep are negative. I recommended to continue current inhalers. I recommended short course of prednisone. She is recommended to call or come back if she is not much better by next week. Orders: - POCT Rapid Covid-19 BinaxNOW - POCT Rapid Influenza B GOEL ID NOW - POCT Rapid Influenza A GOEL ID NOW - POCT Rapid Strep A GOEL ID NOW Exacerbation of asthma, unspecified asthma severity, unspecified whether persistent - POCT Rapid Covid-19 BinaxNOW - POCT Rapid Influenza B GOEL ID NOW - POCT Rapid Influenza A GOEL ID NOW - POCT Rapid Strep A GOEL ID NOW Other orders - predniSONE (Deltasone) 20 MG tablet; Take 2 tablets (40 mg) by mouth Once per day for 5 days. documented in this encounter Plan of Treatment Upcoming Encounters Date Type Department Care Team (Latest Contact Info) Description 12/06/2024 6:40 PM EST Office Visit [facility] [address] [place] [phone] Hernán Worley MD [address] [place], [place] [phone] Left-sided chest pain (Primary Dx) 12/22/2024 11:30 AM EST Clinical Support [facility] [address], [place] [phone] Jeannette Thomas RN documented as of this encounter Procedures Procedure Name Priority Date/Time Associated Diagnosis Comments POCT INFLUENZA B (ID NOW RAPID MOLECULAR) Routine 11/14/2024 3:45 PM EST Subacute cough Exacerbation of asthma, unspecified asthma severity, unspecified whether persistent POCT INFLUENZA A (ID NOW RAPID MOLECULAR) Routine 11/14/2024 3:45 PM EST Subacute cough Exacerbation of asthma, unspecified asthma severity, unspecified whether persistent POC GOEL ID NOW STREP A Routine 11/14/2024 3:45 PM EST Subacute cough Exacerbation of asthma, unspecified asthma severity, unspecified whether persistent POCT RAPID COVID ANTIGEN Routine 11/14/2024 3:45 PM EST Subacute cough Exacerbation of asthma, unspecified asthma severity, unspecified whether persistent documented in this encounter Results * POCT Rapid Strep A GOEL ID NOW (11/14/2024 3:45 PM EST) [facility] Rapid Strep A Screen Negative Negative, None Detected Swab 11/14/2024 3:45 PM EST Gino Browning MD POINT OF CARE TEST ENTER/EDIT OR DERABLES Final Result * POCT Rapid Influenza A GOEL ID NOW (11/14/2024 3:45 PM EST) Influenza A Negative Negative, Indeterminate LABS Swab 11/14/2024 3:45 PM EST us Gino Browning MD POINT OF CARE TEST ENTER/EDIT OR DERABLES Final Result Performing Organization Address City/[facility] Co de Phone Number LABS [address] [place] [phone] * POCT Rapid Influenza B GOEL ID NOW (11/14/2024 3:45 PM EST) Influenza B Negative Negative, Indeterminate LABS Swab 11/14/2024 3:45 PM EST us Gino Browning MD POINT OF CARE TEST ENTER/EDIT OR DERABLES Final Result Performing Organization Address [facility] Co de Phone Number LABS [address] [place] [phone] * POCT Rapid Covid-19 BinaxNOW (11/14/2024 3:45 PM EST) Rapid COVID Ag Negative Swab 11/14/2024 3:45 PM EST Gino Browning MD POINT OF CARE TEST ENTER/EDIT OR DERABLES Final Result documented in this encounter Visit Diagnoses Diagnosis Subacute cough- Primary Exacerbation of asthma, unspecified asthma severity, unspecified whether persistent Left-sided chest pain- Primary documented in this encounter Additional Health Concerns Assessment Noted Time PHQ-9 Depression Total Score: 0 08/12/20 24 11:42 AM EDT documented as of this encounter Care Teams Die Barber Relationship Specialty Start Date End Date Rosalba Shin MD [address] [place] [phone] PCP - General Family Medicine 12/26/20 documented as of this encounter
--- OUTSIDE RECORDS SUMMARY | 2024-12-06 18:09 | XMS_ITS | Encounter Summary ---
Author Organization [employer] Address [address] [facility] [address] [place] [address] Care Team Providers Care Marine Engine Machinist Apprentice Name Role Phone Rosalba Shin MD Primary Care Provide r Encounter Details Date Type Department Care Team (Latest Contact Info) Description 11/14/2024 Travel Social History Tobacco Use Types Packs/Day Years [...] your housing situation today? I have sailaja muj[place] 06/20/[address] you li [...] AM EDT documented as of this encounter Plan of Treatment Upcoming Encounters Date Type Department Care Team (Latest Contact Info) Description 12/06/2024 6:40 PM EST Office Visit [facility] [address] [place] [address] [phone] Hernán Worley MD [address] [place] [phone] Left-sided chest pain (Primary Dx) 12/22/2024 11:30 AM EST Clinical Support [facility] [address] [place] [phone] Jeannette Thomas, KARLENE documented as of this encounter Visit Diagnoses Not on filedocumented in this encounter Additional Health Concerns Assessment Noted Time PHQ-9 Depression Total Score: 0 08/12/20 24 11:42 AM EDT documented as of this encounter Care Teams Marine Engine Machinist Apprentice Relationship Specialty Start Date End Date Rosalba Shin MD [address] [place] [address] [phone] PCP - General Family Medicine 12/26/20 documented as of this encounter
--- OUTSIDE RECORDS SUMMARY | 2024-12-06 18:09 | XMS_ITS | Encounter Summary ---
Author Organization [employer] Address [address] [facility] [address] [place] [address] Care Team Providers Care Lump Receiver Name Role Phone Rosalba Shin MD Primary Care Provide r Encounter Details Date Type Department Care Team (Latest Contact Info) Description 11/25/2024 Travel Social History Tobacco Use Types Packs/Day [...] Description 12/06/2024 6:40 PM EST Office Visit [facility] [address] [place] [address] [phone] Hernán Worley MD [address] [place] [phone] Left-sided chest pain (Primary Dx) 12/22/2024 11:30 AM EST Clinical Support [facility] [address] [place] [phone] Jeannette Thomas, KARLENE documented as of this encounter Visit Diagnoses Not on filedocumented in this encounter Additional Health Concerns Assessment Noted Time PHQ-9 Depression Total Score: 0 08/12/20 24 11:42 AM EDT documented as of this encounter Care Teams Lump Receiver Relationship Specialty Start Date End Date Rosalba Shin MD [address] [place] [address] [phone] PCP - General Family Medicine 12/26/20 documented as of this encounter
--- OUTSIDE RECORDS SUMMARY | 2024-12-06 18:09 | XMS_ITS | Encounter Summary ---
Author Organization [employer] Address [address] [facility] 7t [place] [address] Care Team Providers Care Water Resources Business Segment Leader Name Role Phone Rosalba Shin MD Primary Care Provide r Encounter Details Date Type Department Care Team ([facility] st Contact Info) Description 12/06/2024 6:40 PM EST Office Visit [facility] [address] [place], [place] [phone] Hernán Worley MD [address] [place], [place] [phone] Left-sided chest pain (Primary Dx) Social History Tobacco Use Types Packs/Day Years [...] Sign Reading Time Taken Comments Blood Pressure 137/91 12/06/2024 4:41 PM EST Pulse 109 12/06/2024 4:41 PM EST Temperature 36.9 ??C (98.5 ??F) 12/06/2024 4:41 PM ES T Respiratory Rate - - Oxygen Saturation 98% 12/06/2024 4:41 PM EST Inhaled Oxygen Concentration - - Weight - - Height - - Body Mass Index - - documented in this encounter Progress Notes * Hernán Worley MD - 12/06/2024 6:40 PM EST Subjective History was provided by the patient. Kerline Gutierrez is a 59 y.o. female who presents for evaluation of left-sided chest pain at rest radiating to her back. Currently with CP, which has been waxing and waning. Underlying HTN. Denies associated SOB. Denies N/V/D. Took her medications today, including ASA 81mg daily. Denies any focal weakness. Denies F/C. Objective Vitals: 12/06/24 1641 BP: (!) 137/91 BP Location: Left arm Patient Position: Sitting BP Cuff Size: Adult Pulse: 109 Temp: 98.5 ??F (36.9 ??C) TempSrc: Oral SpO2: 98% Physical Exam Vitals reviewed. Constitutional: Appearance: Normal appearance. She is normal weight. HENT: Head: Normocephalic and atraumatic. Right Ear: External ear normal. Left Ear: External ear normal. Nose: Nose normal. Mouth/Throat: Mouth: Mucous membranes are dry. Pharynx: Oropharynx is clear. Eyes: Extraocular Movements: Extraocular movements intact. Conjunctiva/sclera: Conjunctivae normal. Neck: Vascular: No carotid bruit. Comments: No JVD Cardiovascular: Rate and Rhythm: Normal rate and regular rhythm. Heart sounds: Normal heart sounds. Pulmonary: Effort: Pulmonary effort is normal. Breath sounds: Normal breath sounds. Musculoskeletal: General: Normal range of motion. Cervical back: Normal range of motion and neck supple. Lymphadenopathy: Cervical: No cervical adenopathy. Skin: General: Skin is warm and dry. Neurological: General: No focal deficit present. Mental Status: She is alert and oriented to person, place, and time. Psychiatric: Mood and Affect: Mood normal. Behavior: Behavior normal. Diagnoses and all orders for this visit: Left-sided chest pain (Primary) - ECG 12 lead Patient presents to [facility] due to left-sided chest pain started last night at rest Pain has been waxing and waning Radiating to her back EKG shows LAD and pseudo-normalization of T-waves in lead III Discussed further management Discussed with [facility] to coordinate care Patient understands and agrees with the plan Ambulance called for transport O2 support provided while waiting for the ambulance documented in this encounter Plan of Treatment Upcoming Encounters Date Type Department Care Team (Late st Contact Info) Description 12/22/2024 11:30 AM EST Clinical Support [facility] [address] [place] [phone] Jeannette Thomas RN documented as of this encounter Procedures Procedure Name Priority Date/Time Associated Diagnosis Comments ECG 12-LEAD Routine 12/06/2024 5:37 PM EST Left-sided chest pain documented in this encounter Results * ECG 12 lead (12/06/2024 5:37 PM EST) Narrative Hernán Worley MD - 12/06/2024 5:37 PM EST NSR 98. No arrhythmia. LAD. Pseudo-normalization of T-waves in lead III compared to 06/2024 EKG from [facility] us Hernán Worley MD ECG ORDERABLES Final Result documented in this encounter Visit Diagnoses Diagnosis Left-sided chest pain- Primary documented in this encounter Additional Health Concerns Assessment Noted Time PHQ-9 Depression Total Score: 0 08/12/20 24 11:42 AM EDT documented as of this encounter Care Teams Water Resources Business Segment Leader Relationship Specialty Start Date End Date Rosalba Shin MD [address] [place] [address] PCP - General Family Medicine 12/26/20 documented as of this encounter
--- OUTSIDE RECORDS SUMMARY | 2024-12-06 18:09 | XMS_ITS | Encounter Summary ---
Author Organization [employer] Address [address] [facility] 7t [place] [address] Care Team Providers Care Suction Operator Name Role Phone Rosalba Shin MD Primary Care Provide r Reason for Visit * Reason Onset Date Comments Recommend DEHAIRER Tier 2 12/06/2024 Encounter Details Date Type Department Care Team ([facility] st Contact Info) Description 12/06/2024 Telephone [facility] [address] [place] [address] Jeannette Thomas, KARLENE Recommend DEHAIRER Tier 2 Social History Tobacco Use Types Packs/Day Years [...] AM EDT documented as of this encounter Miscellaneous Notes * Telephone Encounter - Jeannette Thomas RN - 12/06/2024 7:54 AM EST What DEHAIRER Tier would you like this patient to be? I recommend Tier 2, please let me know if you agree or would rather patient be in another DEHAIRER Tier. Tier 1 = HIGH RISK, Monthly DEHAIRER visits Tier 2 = MODerate RISK, Q3 Month visits Tier 3 = LOW RISK = Q4-6 month visits documented in this encounter Plan of Treatment Upcoming Encounters Date Type Department Care Team (Latest Contact Info) Description 12/06/2024 6:40 PM EST Office Visit [facility] [address] [place] [phone] Hernán Worley MD [address] [place] [phone] Left-sided chest pain (Primary Dx) 12/22/2024 11:30 AM EST Clinical Support [facility] [address] [place] [phone] Jeannette Thomas RN documented as of this encounter Visit Diagnoses Not on filedocumented in this encounter Additional Health Concerns Assessment Noted Time PHQ-9 Depression Total Score: 0 08/12/20 24 11:42 AM EDT documented as of this encounter Care Teams Suction Operator Relationship Specialty Start Date End Date Rosalba Shin MD [address] [place] [address] PCP - General Family Medicine 12/26/20 documented as of this encounter
--- OUTSIDE RECORDS SUMMARY | 2024-12-06 18:09 | XMS_ITS | Encounter Summary ---
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 TC via via german speaking staff member pauline Fink stated she forgot. Appt rescheduled for 12/22/23 @11:30am documented in this encounter Plan of Treatment Upcoming Encounters Date Type Department Care Team (Latest Contact Info) Description 12/06/2024 6:40 PM EST Office Visit [facility] [address] [place] [phone] Hernán Worley MD [address] [place] [phone] Left-sided chest pain (Primary Dx) 12/22/2024 11:30 AM EST Clinical Support [facility] [address] [place] [phone] Jeannette Thomas RN documented as of this encounter Visit Diagnoses Not on filedocumented in this encounter Additional Health Concerns Assessment Noted Time PHQ-9 Depression Total Score: 0 08/12/20 11:42 AM EDT documented as of this encounter Care Teams Store Stock Help Relationship Specialty Start Date End Date Rosalba Shin MD [address] [place] [phone] PCP - General Family Medicine 12/26/20 documented as of this encounter
--- OUTSIDE RECORDS SUMMARY | 2024-12-06 18:09 | XMS_ITS | Encounter Summary ---
Author Organization [employer] Address [address] [facility] 7t [place] [address] Care Team Providers Care Storage Center Manager Name Role Phone Rosalba Shin MD Primary Care Provide r Reason for Visit * Reason Comments Med Refill Encounter Details Date Type Department Care Team ([facility] st Contact Info) Description 12/02/2024 Refill [facility] [address] [place], [place] [phone] Ofelia Wright, ANP [address] [place], [place] [phone] Type 2 diabetes mellitus without complication, without long-term current use of insulin ([facility]) Social History Tobacco Use Types Packs/Day Years [...] Description 12/06/2024 6:40 PM EST Office Visit [facility] [address] [place] [phone] Hernán Worley MD [address] [place] [phone] Left-sided chest pain (Primary Dx) 12/22/2024 11:30 AM EST Clinical Support [facility] [address] [place] [phone] Jeannette Thomas RN documented as of this encounter Visit Diagnoses Diagnosis Type 2 diabetes mellitus without complication, without long-term current use of insulin ([facility]) Left-sided chest pain- Primary documented in this encounter Additional Health Concerns Assessment Noted Time PHQ-9 Depression Total Score: 0 08/12/20 24 11:42 AM EDT documented as of this encounter Care Teams Storage Center Manager Relationship Specialty Start Date End Date Rosalba Shin MD [address] [place] [phone] PCP - General Family Medicine 12/26/20 documented as of this encounter
--- OUTSIDE RECORDS SUMMARY | 2024-12-06 18:09 | XMS_ITS | Encounter Summary ---
Author Organization [employer] Address [address] [facility] 7t [place] [address] Care Team Providers Care Accounts Payable Associate Name Role Phone Rosalba Shin MD Primary Care Provide r Reason for Visit * Reason Comments Med Refill Encounter Details Date Type Department Care Team ([facility] st Contact Info) Description 12/02/2024 Refill [facility] 230 [place], [place] [phone] Alban Diaz MD 230 [place], [place] [phone] Folliculitis Social History Tobacco Use Types Packs/Day Years [...] Description 12/06/2024 6:40 PM EST Office Visit [facility] [address] [place] [phone] Hernán Worley MD [address] [place] [phone] Left-sided chest pain (Primary Dx) 12/22/2024 11:30 AM EST Clinical Support [facility] [address] [place] [phone] Jeannette Thomas RN documented as of this encounter Visit Diagnoses Diagnosis Folliculitis Other specified disease of hair and hair follicles Left-sided chest pain- Primary documented in this encounter Additional Health Concerns Assessment Noted Time PHQ-9 Depression Total Score: 0 08/12/20 24 11:42 AM EDT documented as of this encounter Care Teams Accounts Payable Associate Relationship Specialty Start Date End Date Rosalba Shin MD [address] [place] [phone] PCP - General Family Medicine 12/26/20 documented as of this encounter
--- OUTSIDE RECORDS SUMMARY | 2024-12-06 18:09 | XMS_ITS | Encounter Summary ---
Author Organization [employer] Address [address] [facility] 7t [place] [address] Care Team Providers Care Button Puncher Name Role Phone Rosalba Shin MD Primary Care Provide r Reason for Visit * Reason Comments Med Refill Encounter Details Date Type Department Care Team ([facility] st Contact Info) Description 12/02/2024 Refill [facility] 230 [place], [place] [phone] Name, MD Gino [address] [place] [address] Social History Tobacco Use Types Packs/Day Years [...] Description 12/06/2024 6:40 PM EST Office Visit [facility] [address] [place] [phone] Hernán Worley MD [address] [place] [phone] Left-sided chest pain (Primary Dx) 12/22/2024 11:30 AM EST Clinical Support [facility] [address] [place] [phone] Jeannette Thomas, RN documented as of this encounter Visit Diagnoses Not on filedocumented in this encounter Additional Health Concerns Assessment Noted Time PHQ-9 Depression Total Score: 0 08/12/20 24 11:42 AM EDT documented as of this encounter Care Teams Button Puncher Relationship Specialty Start Date End Date Rosalba Shin MD [address] [place] [phone] PCP - General Family Medicine 12/26/20 documented as of this encounter
--- OUTSIDE RECORDS SUMMARY | 2024-12-06 18:09 | XMS_ITS | Encounter Summary ---
Author Organization [employer] Address [address] [facility] 7t [place] [address] Care Team Providers Care City Constable Name Role Phone Rosalba Shin MD Primary Care Provide r Reason for Visit * Reason Comments Med Refill Encounter Details Date Type Department Care Team (Late st Contact Info) Description 12/02/2024 Refill [facility] 230 [place], [place] [phone] Maria L Navarro MD [address] [place], [place] [phone] Hypothyroidism, unspecified type; Iron deficiency anemia, unspecified iron deficiency anemia type; Type 2 diabetes mellitus without complication, without long-term current use of insulin (CMS/HCC); Folliculitis; Pain; Chronic low back pain, unspecified back pain laterality, unspecified whether sciatica present; Rash; Mild intermittent asthma with exacerbation Social History Tobacco Use Types Packs/Day Years [...] Description 12/06/2024 6:40 PM EST Office Visit [facility] [address] [place] [phone] Hernán Worley MD [address] [place] [phone] Left-sided chest pain (Primary Dx) 12/22/2024 11:30 AM EST Clinical Support [facility] [address] [place] [phone] Jeannette Thomas RN documented as of this encounter Visit Diagnoses Diagnosis Hypothyroidism, unspecified type Iron deficiency anemia, unspecified iron deficiency anemia type Type 2 diabetes mellitus without complication, without long-term current use of insulin ([facility]) Folliculitis Other specified disease of hair and hair follicles Pain Generalized pain Chronic low back pain, unspecified back pain laterality, unspecified whether sciatica present Rash Rash and other nonspecific skin eruption Mild intermittent asthma with exacerbation Unspecified asthma, with exacerbation Left-sided chest pain- Primary documented in this encounter Additional Health Concerns Assessment Noted Time PHQ-9 Depression Total Score: 0 08/12/20 24 11:42 AM EDT documented as of this encounter Care Teams City Constable Relationship Specialty Start Date End Date Rosalba Shin MD [address] [place] [phone] PCP - General Family Medicine 12/26/20 documented as of this encounter
--- OUTSIDE RECORDS SUMMARY | 2024-12-06 18:09 | XMS_ITS | Encounter Summary ---
Author Organization [employer] Address [address] [facility] 7t [place] [address] Care Team Providers Care Lamination Inspector Name Role Phone Rosalba Shin MD Primary Care Provide r Reason for Visit * Reason Comments Dental Pain Pt came in as an lefty rgency with pain for the pass week, panorex taken Encounter Details Date Type Department Care Team (Late st Contact Info) Description 12/02/2024 1:30 PM EST Office Visit [facility] [address] [place] [address] Fly Salgado, DDS [address] [place] [address] Dental abscess (Primary Dx) Social History Tobacco Use Types [...] is your housing situation today? I have sailajaderic mujica 06/20/[address] you [...] Sign Reading Time Taken Comments Blood Pressure 128/72 12/02/2024 1:34 PM EST Pulse - - Temperature - - Respiratory Rate - - Oxygen Saturation - - Inhaled Oxygen Concentration - - Weight - - Height - - Body Mass Index - - documented in this encounter Progress Notes * Fly Salgado DDS - 12/02/2024 1:30 PM EST Dental procedures in this visit D0140 - LIMITED ORAL EVALUATION - PROBLEM FOCUSED (Completed) Service provider: Fly Salgado DDS Billing provider: Fly Salgado DDS [id number] - ADJUNCTIVE GENERAL SERVICES - PROFESSIONAL VISITS - CASE PRESENTATION, SUBSEQUENT TO DETAILED AND EXTENSIVE TREATMENT PLANNING (Completed) Service provider: Fly Salgado DDS Billing provider: Fly Salgado DDS Patient ID: Kerline Gutierrez is a 59 y.o. female. Time Out: No data recorded Location: [facility] Tooth: Maxilla Procedure: X-rays and Emergency Verified the above with patient, activities assistant, and provider. Confirmed via patient's chart, intraorally and by radiographs. Balance Clerk: not applicable Chief Complaint Patient presents with Dental Pain Pt came in as an emergency with pain for the pass week, panorex taken Medical Hx: Vitals: Blood pressure 128/72. Past Medical History: Diagnosis Date History of eye surgery both eyes lens 15 plus years ago History of gastric bypass aprox 15+ years ago Hypertension Hyperthyroidism Medications: Outpatient Encounter Medications as of 12/02/2024 Medication Sig Dispense Refill albuterol (Ventolin HFA) 108 (90 Base) MCG/ACT inhaler INHALE 2 PUFFS BY MOUTH FOUR TIMES DAILY NEEDED 18 g 1 Alcohol Swabs 70 % pads Aspirin Low Dose 81 MG EC tablet TAKE 1 TABLET BY MOUTH EVERY MORNING 90 tablet 1 betamethasone, augmented, (Diprolene) 0.05 % ointment Apply topically 2 times daily. 15 g 0 Blood Glucose Monitoring Suppl (Blood Glucose Monitor System) w/Device kit 1 each 2 times daily. 1 kit 0 Blood Pressure Monitor kit Use as directed 3x/week 1 kit 0 cholecalciferol (Vitamin D-3) 50 MCG (2000 UT) capsule TAKE 1 CAPSULE BY MOUTH EVERY MORNING 90 capsule 3 cyclobenzaprine (Flexeril) 5 MG tablet TAKE 1 TABLET BY MOUTH EVERY 8 HOURS 90 tablet 1 Deep Sea Nasal Cook 0.65 % nasal spray SPRAY 2 SPRAYS IN EACH NOSTRIL NEEDED FOR NASAL CONGESTION 44 mL 1 Dextromethorphan-guaiFENesin (Mucinex DM) 30-600 MG tablet sustained-release 12 hour TAKE 1 TABLET BY MOUTH THREE TIMES DAILY 28 tablet 0 Diclofenac Sodium 1 % gel APPLY 2 GRAMS TOPICALLY TO AFFECTED AREA(S) FOUR TIMES DAILY 100 g 1 ferrous sulfate (FeroSul) 325 (65 Fe) MG tablet TAKE 1 TABLET BY MOUTH TWICE DAILY WITH ORANGE JUICE 180 tablet 0 Fluocinolone Acetonide Scalp 0.01 % oil APPLY TO AFFECTED AREA(S) 3 TIMES PER WEEK AT NIGHT WITH COVER ON HEAD, ONCE SYMPTOMS IMPROVE USE 3 TIMES PER MONTH 118.28 mL 1 fluticasone (Flonase) 50 MCG/ACT nasal spray 2 sprays. FREESTYLE LITE test strip USE DIRECTED TO TEST BLOOD SUGAR TWICE DAILY 100 strip 11 glucose blood (FREESTYLE LITE) test strip at bed time. hydroCHLOROthiazide (HYDRODiuril) 25 MG tablet TAKE 1 TABLET BY MOUTH EVERY MORNING 90 tablet 1 Lancets misc 1 each 2 times daily. 100 each 2 levothyroxine (Synthroid, Levoxyl) 200 MCG tablet TAKE 1 TABLET BY MOUTH EVERY DAY 90 tablet 0 levothyroxine (Synthroid, Levoxyl) 25 MCG tablet TAKE 1 TABLET BY MOUTH EVERY MORNING 90 tablet 0 lidocaine (Lidoderm) 5 % patch APPLY 1 PATCH TOPICALLY TO SKIN, LEAVE ON FOR 12 HOURS AND OFF FOR 12 HOURS DIRECTED 30 patch 1 lisinopril 10 MG tablet Take 1 tablet (10 mg) by mouth in the morning. 30 tablet 11 loratadine (Claritin) 10 MG tablet TAKE 1 TABLET BY MOUTH EVERY DAY NEEDED 90 tablet 3 Mometasone Furoate (Asmanex HFA) 200 MCG/ACT aerosol Inhale 200 mcg every 12 (twelve) hours. 13 g 2 omeprazole OTC (PriLOSEC OTC) 20 MG EC tablet 1 tablet by mouth once a day rosuvastatin (Crestor) 20 MG tablet Take 1 tablet (20 mg) by mouth Once per day. 30 tablet 11 senna (Senokot) 8.6 MG tablet TAKE 1 TABLET BY MOUTH ONE OR TWO TIMES DAILY NEEDED 180 tablet 1 Skin Protectants, Misc. (eucerin) cream Apply topically every 12 (twelve) hours. TRUEplus Lancets 33G misc 1 each 2 times daily. 100 each 3 TRUEplus Lancets 33G misc USE TO TEST BLOOD SUGAR TWICE DAILY 100 each 1 acetaminophen (Tylenol) 500 MG tablet Take 1 tablet (500 mg) by mouth every 6 (six) hours if neededfor mild pain for up to 20 doses. 20 tablet 0 amoxicillin (Amoxil) 500 MG capsule Take 1 capsule (500 mg) by mouth every 8 (eight) hours for 7 days. 21 capsule 0 dextran 70-hypromellose (artificial tears) 0.1-0.3 % ophthalmic solution Administer 1 drop into both eyes if needed in the morning, at noon, and at bedtime for dry eyes. 30 mL 1 naloxone (Narcan) 4 mg/0.1 mL nasal spray Administer 1 spray (4 mg) into affected nostril(s) if needed for opioid reversal. May repeat every 2-3 minutes if needed, alternating nostrils, until medicalassistance becomes available. (Patient not taking: Reported on 12/02/2024) 2 each 3 venlafaxine XR (Effexor XR) 37.5 MG 24 hr capsule TAKE 1 CAPSULE BY MOUTH TWICE DAILY. DO NOT BREAK, CRUSH, DISSOLVE OR CHEW. 60 capsule 2 Ventolin HFA 108 (90 Base) MCG/ACT inhaler INHALE 2 PUFFS BY MOUTH EVERY 6 HOURS NEEDED FOR WHEEZING 18 g 1 zolpidem (Ambien) 10 MG tablet TAKE 1 TABLET BY MOUTH EVERY DAY AT BEDTIME NEEDED FOR SLEEP 30 tablet 0 zoster vaccine-recombinant adjuvanted (Shingrix) 50 MCG/0.5ML vaccine Inject 0.5 mL into the shoulder, thigh, or buttocks. No facility-administered encounter medications on file as of 12/02/2024. Subjective: Pain: constant Duration: 3 days Objective: Tooth: #6 and #29 Radiographs Taken: no Radiographic Findings: Previously planned for extractions on maxillae, trying to keep existing on rio. Clinical Findings: Multiple carious teeth on max. Swelling: Tenderness Endo Testing: N/A Perio: Erythematous Other Findings: Pt not decided yet if she wants all max. Extracted under deep sedation or L.A. She will call when ready Diagnosis: Irreversible pulpitis, dental abscess # 6 region Assessment/Plan: EOE Referral to [facility] Prescriptions: Sent to X on file Pt tolerated procedure well, all questions answered. Dismissed in good condition. [place]: JORJE Engraver Steel Plate: Komal Muse Dentist: Fly Salgado DDS documented in this encounter Plan of Treatment Upcoming Encounters Date Type Department Care Team (Latest Contact Info) Description 12/06/2024 6:40 PM EST Office Visit [facility] [address] [place] [phone] Hernán Worley MD [address] [place] [phone] Left-sided chest pain (Primary Dx) 12/22/2024 11:30 AM EST Clinical Support [facility] [address] [place] [phone] Jeannette Thomas RN documented as of this encounter Procedures Procedure Name Priority Date/Time Associated Diagnosis Comments LIMITED ORAL EVALUATION - PROBLEM FOCUSED Routine 12/02/2024 1:30 PM EST ADJUNCTIVE GENERAL SERVICES - PROFESSIONAL VISITS - CASE PRESENTATION, SUBSEQUENT TO DETAILED AND EXTENSIVE TREATMENT PLANNING Routine 12/02/2024 1:30 PM EST documented in this encounter Visit Diagnoses Diagnosis Dental abscess- Primary Periapical abscess without sinus Left-sided chest pain- Primary documented in this encounter Additional Health Concerns Assessment Noted Time PHQ-9 Depression Total Score: 0 08/12/20 24 11:42 AM EDT documented as of this encounter Care Teams Lamination Inspector Relationship Specialty Start Date End Date Rosalba Shin MD [address] [place] [address] PCP - General Family Medicine 12/26/20 documented as of this encounter
--- OUTSIDE RECORDS SUMMARY | 2024-12-06 18:09 | XMS_ITS | Clinical Summary ---
Author Organization [email or web address] Address [address] [place] [address] Care Team Providers Care Web Editor Name Role Phone Rosalba Shin MD Primary Care Provide r Allergies No known active allergies Medications * This document contains information received from the source organization and may not represent a complete record from that organization. Alcohol Swabs 70 % pads 05/21/20 10 Active fluticasone (Flonase) 50 MCG/ACT nasal spray 2 sprays. 08/05/20 17 Active glucose blood (FREESTYLE LITE) test strip at bed time. 01/24/20 21 Active omeprazole OTC (PriLOSEC OTC) 20 MG EC tablet 1 tablet by mouth once a day 03/09/20 18 Active Skin Protectants, Misc. (eucerin) cream Apply topically every 12 (twelve) hours. 01/27/20 20 Active zoster vaccine-recombi nant adjuvanted (Shingrix) 50 MCG/0.5ML vaccine Inject 0.5 mL into the shoulder, thigh, or buttocks. 03/16/20 20 Active Deep Sea Nasal [place] 0.65 % nasal sprayIndication s:Viral pharyngitis SPRAY 2 SPRAYS IN EACH NOSTRIL NEEDED FOR NASAL CONGESTION 44 mL 1 12/10/19 23 Active Ventolin HFA 108 (90 Base) MCG/ACT inhalerIndicati ons:Mild intermittent asthma without complication INHALE 2 PUFFS BY MOUTH EVERY 6 HOURS NEEDED FOR WHEEZING 18 g 1 06/19/20 23 Active Blood Glucose Monitoring Suppl (Blood Glucose Monitor System) w/Device kitIndications: Type 2 diabetes mellitus without complication, without long-term current use of insulin ([facility]) 1 each 2 times daily. 1 kit 09/07/20 Active Lancets miscIndications :Type 2 diabetes mellitus without complication, without long-term current use of insulin ([facility]) 1 each 2 times daily. 100 each 2 09/07/20 Active Blood Pressure Monitor kitIndications: Essential hypertension Use as directed 3x/week 1 kit 09/07/20 Active loratadine (Claritin) 10 MG tabletIndicatio ns:Dermatitis,P ruritus of both eyes TAKE 1 TABLET BY MOUTH EVERY DAY NEEDED 90 tablet 3 03/24/20 24 Active cholecalciferol (Vitamin D-3) 50 MCG (1999) capsule TAKE 1 CAPSULE BY MOUTH EVERY MORNING 90 capsule 3 03/24/20 24 Active FREESTYLE LITE test stripIndication s:Type 2 diabetes mellitus without complication, without long-term current use of insulin ([facility]) USE DIRECTED TO TEST BLOOD SUGAR TWICE DAILY 100 strip 11 05/30/20 24 Active venlafaxine XR (Effexor XR) 37.5 MG 24 hr capsuleIndicati ons:Hot flashes due to menopause TAKE 1 CAPSULE BY MOUTH TWICE DAILY. DO NOT BREAK, CRUSH, DISSOLVE OR CHEW. 60 capsule 2 07/01/20 24 Active senna (Senokot) 8.6 MG tabletIndicatio ns:Other constipation TAKE 1 TABLET BY MOUTH ONE OR TWO TIMES DAILY NEEDED 180 tablet 1 07/07/20 24 Active hydroCHLOROthia zide (HYDRODiuril) 25 MG tabletIndicatio ns:Essential hypertension TAKE 1 TABLET BY MOUTH EVERY MORNING 90 tablet 1 07/07/20 24 Active Aspirin Low Dose 81 MG EC tabletIndicatio ns:Essential hypertension TAKE 1 TABLET BY MOUTH EVERY MORNING 90 tablet 1 07/07/20 24 Active lisinopril 10 MG tabletIndicatio ns:Hypertension , unspecified type Take 1 tablet (10 mg) by mouth in the morning. 30 tablet 11 07/13/20 24 2024 Active TRUEplus Lancets 33G miscIndications :Type 2 diabetes mellitus without complication, without long-term current use of insulin ([facility]) USE TO TEST BLOOD SUGAR TWICE DAILY 100 each 1 07/21/20 24 Active Dextromethorpha n-guaiFENesin (Mucinex DM) 30-600 MG tablet sustained-relea se 12 hour TAKE 1 TABLET BY MOUTH THREE TIMES DAILY 28 tablet 07/26/20 24 Active Mometasone Furoate (Asmanex HFA) 200 MCG/ACT aerosolIndicati ons:Moderate persistent asthma, unspecified whether complicated Inhale 200 mcg every 12 (twelve) hours. 13 g 2 08/12/20 24 Active rosuvastatin (Crestor) 20 MG tabletIndicatio ns:Type 2 diabetes mellitus without complication, without long-term current use of insulin ([facility]) Take 1 tablet (20 mg) by mouth Once per day. 30 tablet 11 08/12/20 24 2024 Active naloxone (Narcan) 4 mg/0.1 mL nasal sprayIndication s:Fibromyalgia Administer 1 spray (4 mg) into affected nostril(s) if needed for opioid reversal. May repeat every 2-3 minutes if needed, alternating nostrils, until medical assistance becomes available. 2 each 3 10/06/20 24 2024 Active Additional Information Patient not taking.Reported on 12/02/2024 dextran 70-hypromellose (artificial tears) 0.1-0.3 % ophthalmic solutionIndicat ions:Dry eye Administer 1 drop into both eyes if needed in the morning, at noon, and at bedtime for dry eyes. 30 mL 1 11/08/20 24 Active acetaminophen (Tylenol) 500 MG tablet Take 1 tablet (500 mg) by mouth every 6 (six) hours if needed for mild pain for up to 20 doses. 20 tablet 12/02/19 25 Active amoxicillin (Amoxil) 500 MG capsule Take 1 capsule (500 mg) by mouth every 8 (eight) hours for 7 days. 21 capsule 12/02/19 25 2024 Active traMADol (Ultram) 50 MG tabletIndicatio ns:Fibromyalgia TAKE 1 TABLET BY MOUTH EVERY 8 HOURS NEEDED FOR SEVERE PAIN FOR UP TO 28 DAYS 84 tablet 12/02/19 25 Active zolpidem (Ambien) 10 MG tabletIndicatio ns:Primary insomnia TAKE 1 TABLET BY MOUTH AT BEDTIME NEEDED for SLEEP 30 tablet 12/02/19 25 Active levothyroxine (Synthroid, Levoxyl) 25 MCG tabletIndicatio ns:Hypothyroidi sm, unspecified type TAKE 1 TABLET BY MOUTH EVERY DAY IN THE MORNING 90 tablet 12/02/19 25 Active levothyroxine (Synthroid, Levoxyl) 200 MCG tabletIndicatio ns:Hypothyroidi sm, unspecified type TAKE 1 TABLET BY MOUTH EVERY DAY 90 tablet 12/02/19 25 Active Ferrous Sulfate (iron) 325 (65 Fe) MG tabletIndicatio ns:Iron deficiency anemia, unspecified iron deficiency anemia type TAKE 1 TABLET BY MOUTH TWICE DAILY WITH ORANGE JUICE 180 tablet 12/02/19 25 Active acetaminophen (Tylenol 8 Hour) 650 MG ER tabletIndicatio ns:Fibromyalgia TAKE 1 TABLET BY MOUTH EVERY 8 HOURS NEEDED FOR MILD PAIN FOR UP TO 10 DAYS, DO NOT BREAK, CRUSH, DISSOLVE OR CHEW 30 tablet 12/02/19 25 Active TRUEplus Lancets 33G miscIndications :Type 2 diabetes mellitus without complication, without long-term current use of insulin ([facility]) 1 each 2 times daily. 100 each 11 12/02/19 25 Active Fluocinolone Acetonide Scalp 0.01 % oilIndications: Folliculitis APPLY TO AFFECTED AREA(S) 3 TIMES PER WEEK AT NIGHT WITH COVER ON HEAD, ONCE SYMPTOMS IMPROVE USE 3 TIMES PER MONTH 118.28 mL 1 12/02/19 25 Active cyclobenzaprine (Flexeril) 5 MG tabletIndicatio ns:Pain Take 1 tablet (5 mg) by mouth every 8 (eight) hours. 90 tablet 1 12/02/19 25 Active lidocaine (Lidoderm) 5 % patchIndication s:Chronic low back pain, unspecified back pain laterality, unspecified whether sciatica present APPLY 1 PATCH TOPICALLY TO SKIN, LEAVE ON FOR 12 HOURS AND OFF FOR 12 HOURS DIRECTED 30 patch 12/02/19 25 Active betamethasone, augmented, (Diprolene) 0.05 % ointmentIndicat ions:Rash Apply topically 2 times daily. 15 g 12/02/19 25 Active Diclofenac Sodium 1 % gelIndications: Chronic low back pain, unspecified back pain laterality, unspecified whether sciatica present APPLY 2 GRAMS TOPICALLY TO AFFECTED AREA(S) FOUR TIMES DAILY 100 g 12/02/19 25 Active albuterol (Ventolin HFA) 108 (90 Base) MCG/ACT inhalerIndicati ons:Mild intermittent asthma with exacerbation INHALE 2 PUFFS BY MOUTH FOUR TIMES DAILY NEEDED 18 g 1 12/02/19 25 Active dextran 70-hypromellose (artificial tears) 0.1-0.3 % ophthalmic solution Administer 1 drop into affected eye(s) in the morning and 1 drop at noon and 1 drop in the evening and 1 drop before bedtime. 08/19/20 18 2023 Discontinued(R eorder (will not trigger notification to Pharmacy)) triamcinolone (Kenalog) 0.1 % ointmentIndicat ions:Venous stasis dermatitis of both lower extremities,Rick thema dyschromicum perstans APPLY TO THE AFFECTED AREA(S) TWICE DAILY 80 g 08/18/20 23 2023 Discontinued TRUEplus Lancets 33G miscIndications :Type 2 diabetes mellitus without complication, without long-term current use of insulin ([facility]) 1 each 2 times daily. 100 each 3 08/18/20 23 2024 Discontinued(R eorder (will not trigger notification to Pharmacy)) Fluocinolone Acetonide Scalp 0.01 % oilIndications: Folliculitis APPLY TO AFFECTED AREA(S) 3 TIMES PER WEEK AT NIGHT WITH COVER ON HEAD, ONCE SYMPTOMS IMPROVE USE 3 TIMES PER MONTH 118.28 mL 1 06/24/20 24 2024 Discontinued(R eorder (will not trigger notification to Pharmacy)) cyclobenzaprine (Flexeril) 5 MG tabletIndicatio ns:Pain TAKE 1 TABLET BY MOUTH EVERY 8 HOURS 90 tablet 1 07/01/20 24 2024 Discontinued(R eorder (will not trigger notification to Pharmacy)) levothyroxine (Synthroid, Levoxyl) 25 MCG tabletIndicatio ns:Hypothyroidi sm, unspecified type TAKE 1 TABLET BY MOUTH EVERY MORNING 90 tablet 07/26/20 24 2024 Discontinued levothyroxine (Synthroid, Levoxyl) 200 MCG tabletIndicatio ns:Hypothyroidi sm, unspecified type TAKE 1 TABLET BY MOUTH EVERY DAY 90 tablet 07/26/20 24 2024 Discontinued ferrous sulfate (FeroSul) 325 (65 Fe) MG tabletIndicatio ns:Iron deficiency anemia, unspecified iron deficiency anemia type TAKE 1 TABLET BY MOUTH TWICE DAILY WITH ORANGE JUICE 180 tablet 07/26/20 24 2024 Discontinued lidocaine (Lidoderm) 5 % patchIndication s:Chronic low back pain, unspecified back pain laterality, unspecified whether sciatica present APPLY 1 PATCH TOPICALLY TO SKIN, LEAVE ON FOR 12 HOURS AND OFF FOR 12 HOURS DIRECTED 30 patch 1 08/12/20 24 2024 Discontinued(R eorder (will not trigger notification to Pharmacy)) Diclofenac Sodium 1 % gelIndications: Chronic low back pain, unspecified back pain laterality, unspecified whether sciatica present APPLY 2 GRAMS TOPICALLY TO AFFECTED AREA(S) FOUR TIMES DAILY 100 g 1 08/12/202024 Discontinued(R eorder (will not trigger notification to Pharmacy)) traMADol (Ultram) 50 MG tabletIndicatio ns:Fibromyalgia Take 1 tablet (50 mg) by mouth every 8 (eight) hours if needed for severe pain for up to 28 days. Do not start before October 12, 2024. 84 tablet 10/12/202024 Discontinued albuterol (Ventolin HFA) 108 (90 Base) MCG/ACT inhalerIndicati ons:Mild intermittent asthma with exacerbation INHALE 2 PUFFS BY MOUTH FOUR TIMES DAILY NEEDED 18 g 1 10/10/202024 Discontinued(R eorder (will not trigger notification to Pharmacy)) zolpidem (Ambien) 10 MG tabletIndicatio ns:Primary insomnia TAKE 1 TABLET BY MOUTH EVERY DAY AT BEDTIME NEEDED FOR SLEEP 30 tablet 10/10/202024 Discontinued acetaminophen (Tylenol 8 Hour) 650 MG ER tabletIndicatio ns:Fibromyalgia Take 1 tablet (650 mg) by mouth every 8 (eight) hours if needed for mild pain for up to 10 days. Do not crush, chew, or split. 30 tablet 11/08/20 24 2024 Discontinued betamethasone, augmented, (Diprolene) 0.05 % ointmentIndicat ions:Rash Apply topically 2 times daily. 15 g 11/08/20 24 2024 Discontinued(R eorder (will not trigger notification to Pharmacy)) predniSONE (Deltasone) 20 MG tablet Take 2 tablets (40 mg) by mouth Once per day for 5 days. 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 Dry eye 11/08/2024 Moderate asthma 08/12/2024 Assessment & Plan (11/08/2024 2:03 PM EST): I will refer her to pulmonology C/w same medication regimen Assessment & Plan (08/12/2024 1:57 PM EDT): C/w albuterol PRN I added today asmanex inhaler Hypokalemia 08/12/2024 Assessment & Plan (08/12/2024 1:58 PM EDT): BMP ordered for f/u Severe dental caries 07/27/2024 Dental abscess 07/27/2024 Bronchitis 07/04/2024 Mild intermittent asthma with exacerbation 07/04 Lipoma of breast 02/15/2024 Lipoma 02/09/2024 Breast nodule 02/09/2024 Atopic dermatitis of scalp 02/09/2024 Encounter for Papanicolaou s mear for cervical cancer screening 09/22/2023 Pain in toe 09/22/2023 Hot flashes due to menopause 08/11/2023 Assessment & Plan (02/09/2024 10:29 AM EDT): Increase venlafaxine to twice a day Dermatitis 08/11/2023 Fibromyalgia 04/06/2023 Assessment & Plan (11/08/2024 2:03 PM EST): Patient was educated about multidisciplinary approach for her condition, it was advise cardiovascular exercise, maintain hydration, treat anxiety/depression and take medications as directed Assessment & Plan (08/13/2023 5:16 PM EDT): Patient was educated about multidisciplinary approach for her condition, it was advise cardiovascular exercise, maintain hydration, treat anxiety/depression and take medications as directed Assessment & Plan (04/06/2023 3:19 PM EDT): Patient was educated about multidisciplinary approach for her condition, it was advise cardiovascular exercise, maintain hydration, treat anxiety/depression and take medications as directed Encounter for screening mamm ogram for malignant neoplasm of breast 04/06/2023 Bilateral carpal tunnel syndrome 04/06/2023 Assessment & Plan (08/12/2024 1:56 PM EDT): Patient is still thinking about surgical intervention C/w current interventions Assessment & Plan (04/06/2023 3:20 PM EDT): Wrist braces will be prescribed Chronic low back pain 11/12/2022 Postphlebitic syndrome 11/12/2022 Hypertensive disorder 11/05/2022 Assessment & Plan (02/09/2024 10:27 AM EDT): u - Aerobic exercise to reduce BP. Initial goal of 30 min walk 3-5x/week. Increase as tolerated. - low-sodium diet (goal: <2g/day) and heart healthy diet such as DASH to reduce BP and prevent ASCVD. - Home BP monitoring 1-2 x day with goal of <140/90. - Seek immediate medical attention for chest pain, palpitations, SOB, syncope, or sudden changes in mental status. - Do not change or discontinue current prescriptions without first consulting health care provider Assessment & Plan (04/06/2023 3:18 PM EDT): Maintenance: BMP: ordered today Lipid Panel: ordered today ASCVD Risk: Calculate pending updated labs - Aerobic exercise to reduce BP. Initial goal of 30 min walk 3-5x/week. Increase as tolerated. - low-sodium diet (goal: <2g/day) and heart healthy diet such as DASH to reduce BP and prevent ASCVD. - Home BP monitoring 1-2 x day with goal of <140/90. - Seek immediate medical attention for chest pain, palpitations, SOB, syncope, or sudden changes in mental status. - Do not change or discontinue current prescriptions without first consulting health care provider Spinal stenosis of lumbar region 07/04/2020 Acquired hypothyroidism 12/19/2015 Mixed anxiety and depressive disorder 12/19/2015 Assessment & Plan (04/06/2023 3:20 PM EDT): Counseling done today [facility] referral Rheumatoid arthritis involvi ng multiple sites with positive rheumatoid factor 12/19/2015 Sjogrens syndrome 12/19/2015 Type 2 diabetes mellitus 12/19/2015 Assessment & Plan (11/08/2024 2:03 PM EST): Diabetes is: controlled - Lab Results Component Value Date HGBA1C 6.0 07/04/2024 HGBA1C 5.8 02/09/2024 HGBA1C 6.1 (A) 08/11/2023 - Lab Results Component Value Date MICROALBUR 28.0 07/13/2024 CREATININE 0.76 07/13/2024 -Changes: none - Diabetic eye exam: - Diabetic foot exam: - Continue lifestyle modifications - Continue current medications - Follow up: 3 months Assessment & Plan (08/12/2024 1:57 PM EDT): Diabetes is: controlled - Lab Results Component Value Date HGBA1C 6.0 07/04/2024 HGBA1C 5.8 02/09/2024 HGBA1C 6.1 (A) 08/11/2023 - Lab Results Component Value Date MICROALBUR 28.0 07/13/2024 CREATININE 0.76 07/13/2024 -Changes: none - Diabetic eye exam:up to date - Diabetic foot exam:pending - Continue lifestyle modifications - Continue current medications - Follow up: 3 months Assessment & Plan (07/06/2024 12:03 PM EDT): Diabetes is: controlled - Lab Results Component Value Date HGBA1C 6.0 07/04/2024 HGBA1C 5.8 02/09/2024 HGBA1C 6.1 (A) 08/11/2023 - Lab Results Component Value Date MICROALBUR 11.0 08/11/2023 CREATININE 0.68 04/06/2023 -Changes: none - Diabetic eye exam:pending - Diabetic foot exam:pending - Continue lifestyle modifications - Continue current medications - Follow up: 3 months Assessment & Plan (02/09/2024 10:28 AM EDT): Diabetes is: controlled - Lab Results Component Value Date HGBA1C 5.8 02/09/2024 HGBA1C 6.1 (A) 08/11/2023 HGBA1C 5.6 04/06/2023 - Lab Results Component Value Date MICROALBUR 11.0 08/11/2023 CREATININE 0.68 04/06/2023 -Changes: none - Diabetic eye exam:upcoming appointment - Diabetic foot exam:pending - Continue lifestyle modifications - Continue current medications - Follow up: 3 months Assessment & Plan (08/13/2023 5:17 PM EDT): Lab Results Component Value Date HGBA1C 6.1 (A) 08/11/2023 HGBA1C 5.6 04/06/2023 HGBA1C 5.5 (A) 11/05/2022 - Lab Results Component Value Date MICROALBUR 11.0 08/11/2023 CREATININE 0.68 04/06/2023 - Continue lifestyle modifications - Continue current medications Assessment & Plan (04/06/2023 3:20 PM EDT): - Lab Results Component Value Date HGBA1C 5.6 04/06/2023 HGBA1C 5.5 (A) 11/05/2022 - Lab Results Component Value Date CREATININE 0.75 04/07/2021 - Diabetic eye exam: up to date - Diabetic foot exam: pending - Continue lifestyle modifications Allergic rhinitis 12/19/2015 Constipation 12/19/2015 Heartburn 12/19/2015 Hypercholesterolemia 12/19/2015 Obesity 12/19/2015 Perimenopause 12/19/2015 Rash 12/19/2015 Essential hypertension 12/19/2015 Assessment & Plan (07/06/2024 12:03 PM EDT): I advise - Aerobic exercise to reduce BP. Initial goal of 30 min walk 3-5x/week. Increase as tolerated. - low-sodium diet (goal: <2g/day) and heart healthy diet such as DASH to reduce BP and prevent ASCVD. - Home BP monitoring 1-2 x day with goal of <140/90. - Seek immediate medical attention for chest pain, palpitations, SOB, syncope, or sudden changes in mental status. - Do not change or discontinue current prescriptions without first consulting health care provider Assessment & Plan (08/13/2023 5:16 PM EDT): - Aerobic exercise to reduce BP. Initial goal of 30 min walk 3-5x/week. Increase as tolerated. - low-sodium diet (goal: <2g/day) and heart healthy diet such as DASH to reduce BP and prevent ASCVD. - Home BP monitoring 1-2 x day with goal of <140/90. - Seek immediate medical attention for chest pain, palpitations, SOB, syncope, or sudden changes in mental status. - Do not change or discontinue current prescriptions without first consulting health care provider Resolved Problems Problem Noted Date Diagnosed Date Resolved Date Pruritus of both eyes 08/11/20232024 Pain in eye 11/12/2022 11/25/2024 Mild intermittent asthma 12/19/2015 Encounters Date Type Department Care Team Description 12/06/2024 6:40 PM EST Office Visit [facility] [address] [place] [phone] Hernán Worley MD Left-sided chest pain (Primary Dx) 12/06/2024 Telephone [facility] [address] [place] [phone] Jeannette Thomas, RN NCNS for PAY PER CLICK STRATEGIST RV appt today 12/06/2024 Telephone [facility] [address] [place] [phone] Jeannette Thomas, KARLENE Recommend PAY PER CLICK STRATEGIST Tier 2 12/02/2024 1:30 PM EST Office Visit [facility] [address] [place] [phone] Fyl Salgado DDS Dental abscess (Primary Dx) 12/02/2024 Refill [facility] [address] [place] [address] Nam, MD Gino 12/02/2024 Refill [facility] [address] [place] [phone] Alban Diaz MD Folliculitis 12/02/2024 Refill [facility] [address] [place] [phone] Ofelia Wright ANP Type 2 diabetes mellitus without complication, without long-term current use of insulin ([facility]) 12/02/2024 Refill [facility] [address] [place] [address] Maria L Navarro MD Hypothyroidism, unspecified type; Iron deficiency anemia, unspecified iron deficiency anemia type; Type 2 diabetes mellitus without complication, without long-term current use of insulin ([facility]); Folliculitis; Pain; Chronic low back pain, unspecified back pain laterality, unspecified whether sciatica present; Rash; Mild intermittent asthma with exacerbation 12/02/2024 Refill [facility] [address] [place] [address] Rosalba Shin MD Fibromyalgia; Primary insomnia; Chronic low back pain, unspecified back pain laterality, unspecified whether sciatica present; Pain; Rash; Mild intermittent asthma with exacerbation 11/25/2024 1:00 PM EST Office Visit [facility] [address] [place] [phone] Aidee Miller, RUDDY Type 2 diabetes mellitus without ophthalmic manifestations ([facility]) (Primary Dx); 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; Lamellar macular hole of right eye; Dry eyes, bilateral; Presbyopia 11/25/2024 Travel 11/14/2024 3:40 PM EST Office Visit [facility] [address] [place] [phone] Gino Browning MD Subacute cough (Primary Dx); Exacerbation of asthma, unspecified asthma severity, unspecified whether persistent 11/14/2024 Travel 11/08/2024 11:00 AM EST Office Visit [facility] [address] [place] [phone] Rosalba Shin MD Moderate persistent asthma, unspecified whether complicated (Primary Dx); Type 2 diabetes mellitus without complication, without long-term current use of insulin ([facility]); Fibromyalgia; Rash; Dry eye 11/08/2024 Travel 11/02/2024 Travel 10/07/2024 Refill [facility] [address] [place] [address] Rosalba Shin MD Mild intermittent asthma with exacerbation; Primary insomnia 10/06/2024 10:00 AM EST Clinical Support [facility] [address] [place] [address] Jeannette Thomas, business loan processor low back pain, unspecified back pain laterality, unspecified whether sciatica present (Primary Dx) 10/06/2024 Refill [facility] [address] [place] [address] Jeannette Thomas RN Fibromyalgia 10/06/2024 Travel 09/27/2024 Patient Outreach [facility] [address] [place] [address] Rosalba Shin MD Pre-visit Planning (SDOH screening completed on 06/20/2024) 09/08/2024 3:20 PM EDT Office Visit [facility] [address] [place] [phone] Sedrick Wright MD Total body pain (Primary Dx) 09/08/2024 Refill [facility] [address] [place] [phone] Maria L Navarro MD Fibromyalgia; Primary insomnia 09/08/2024 Refill [facility] [address] [place] [address] Fly Salgado DDS from Last 3 Months Immunizations Name Administration Dates Next Due Hep B, adult 02/18/2017,12/19/2015,04/24/2014 INFLUENZA VACCINE QUADRIVALE NT RECOMBINANT PRESERVATIVE FREE RIV4 09/18/2020 Influenza Injectable Quadriv alant Preservative Free IIV4 MDCK 08/28/2022 Influenza injectable quadriv alent IIV4 with preservative 08/05/2019 Influenza injectable quadriv alent preservative free 08/13/2023,09/26/2021,10/18/2018,09/14,09/04/2016,08/16/2015 Influenza, IIV3, injectable 10/01/2014, 1 Influenza, Split (incl. abner fied surface antigen) 09/09/2013,08/05/2012 Influenza, seasonal, injecta ble, preservative free 08/12/2024 Pfizer Covid-19 Vaccine 12+ 08/12/2024, Pfizer Covid-19 Vaccine 12+ elmo-sucrose (Rodriguez Cap) 05/13/2022 Pneumococcal Conjugate PCV 20 02/09/2024 Pneumococcal Polysaccharide PPSV23 04/04/2009, TD (adult), 2 Lf tetanus tox oid, preservative free, adsorbed 12/26/2005 Tdap 03/24/2013 Zoster, Recombinant 05/26/2022,09/18/2020 Social History Tobacco Use Types Packs/Day Years Used Date Smoking Tobacco: Never Passive Smoke Exposure: Never Smokeless Tobacco: Never Tobacco Cessation:Counseling Given: Not Answered Alcohol Use Standard Drinks/Week Comments Never 0 [...] Orientation Straight 09/15/2022 10 :14 AM EDT Last Filed Vital Signs Vital Sign Reading Time Taken Comments Blood Pressure 137/91 12/06/2024 4:41 PM EST Pulse 109 12/06/2024 4:41 PM EST Temperature 36.9 ??C (98.5 ??F) 12/06/2024 4:41 PM ES T Respiratory Rate 20 11/14/2024 3:26 PM EST Oxygen Saturation 98% 12/06/2024 4:41 PM EST Inhaled Oxygen Concentration - - Weight 93.4 kg (206 lb) 11/14/2024 3:26 PM EST Height 165.1 cm (5' 5 ) 11/14/2024 3:26 PM EST Body Mass Index 34.28 11/14/2024 3:26 PM EST Plan of Treatment Upcoming Encounters Date Type Department Care Team (Latest Contact Info) Description 12/06/2024 6:40 PM EST Office Visit [facility] [address] [place] [phone] Hernán Worley MD [address] [place] [address] [phone] Left-sided chest pain (Primary Dx) 12/22/2024 11:30 AM EST Clinical Support [facility] [address] [place] [address] [phone] Jeannette Thomas, RN Health Maintenance Due Date Last Done Comments CT Colonography 1966 Dental Prophylaxis 1966 FIT DNA/Cologuard 1966 FIT 1966 FOBT 1966 HIV Screening 1965 Sigmoidoscopy 1966 Diabetes: Foot Exam 1976 Hepatitis C Screening 1984 DTaP/Tdap/Td Vaccines (2 - Td or Tdap) 03/24/2023 03/24/2013, 12/26/2005 Dental Oral Exam 09/04/2024 03/04/2024 Diabetes: Hemoglobin A1C 01/04/2025 024, 02/09/2024, 08/11/2023, Additional history exists Mammogram 02/11/2025 02/12/2024, 01/15, 04/21/2023, Additional history exists Dental X-Ray: Bitewings 03/05/2025 03/04/2024 SDOH Screening 06/20/2025 06/20/2024 Diabetes: Urine Protein Screening 07/13/2025 07/13/2024, 08/11/2023, 10/18/2020 Lipid Panel 07/13/2025 07/13/2024, 0512/2022, 07/16/2021, Additional history exists Alcohol/Substance Use Screening 08/12/2025 08/12/2024 Depression Screening 08/12/2025 08/12/2024, 08/12/20 Tobacco Screening 12/02/2025 12/02/2024 Eye Exam 11/25/2026 11/25/2024, 11/16, 11/25/2024, Additional history exists Dental X-Ray: Full Mouth 03/05/2027 03/04/2024 Colonoscopy 06/01/2028 06/01/2018 Colorectal Cancer Screening 06/01/2028 Cervical Cancer Screening 09/22/2028 HPV/Cotest 09/22/2028 09/22/2023 Pap Smear 09/22/2028 09/22/2023, 09/22/2023 RSV Patients and Patients Aged 60 years or older (1 - 1-dose 75+ series) 2041 Hepatitis B Vaccines Completed 02/18/2017, 12/19/2015, 04/24/2014 Zoster Vaccines Completed 05/26/2022, 09/18/2020 Pneumococcal Vaccine: Pediatrics (0 to 5 Years) and At-Risk Patients (6 to 64 Years) Completed 02/09/2024, 04/04/2009, 10/12/2001 COVID-19 Vaccine Completed 08/12/2024, , 09/17/2022, Additional history exists Influenza Vaccine Completed 08/12/2024, , 08/28/2022, Additional history exists HIB Vaccines Aged Out No longer eligi ble based on patient's age to complete this topic HPV Vaccines Aged Out No longer eligi ble based on patient's age to complete this topic Hepatitis A Vaccines Aged Out No long er eligible based on patient's age to complete this topic IPV Vaccines Aged Out No longer eligi ble based on patient's age to complete this topic Meningococcal Vaccine Aged Out No toshia jennifer eligible based on patient's age to complete this topic RSV under 20 months Aged Out No longe r eligible based on patient's age to complete this topic Rotavirus Vaccines Aged Out No longer eligible based on patient's age to complete this topic Procedures Procedure Name Priority Date/Time Associated Diagnosis Comments ECG 12-LEAD Routine 12/06/2024 5:37 PM EST Left-sided chest pain [employer] - PROFESSIONAL VISITS - CASE PRESENTATION, SUBSEQUENT TO DETAILED AND EXTENSIVE TREATMENT PLANNING Routine 12/02/2024 1:30 PM EST LIMITED ORAL EVALUATION - PROBLEM FOCUSED Routine 12/02/2024 1:30 PM EST OCT, RETINA - OU - BOTH EYES Routine 11/25/2024 1:00 PM EST 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 POC GEOL ID NOW STREP A Routine 11/14/2024 3:45 PM EST Subacute cough Exacerbation of asthma, unspecified asthma severity, unspecified whether persistent POCT INFLUENZA A (ID NOW RAPID MOLECULAR) Routine 11/14/2024 3:45 PM EST Subacute cough Exacerbation of asthma, unspecified asthma severity, unspecified whether persistent POCT INFLUENZA B (ID NOW RAPID MOLECULAR) Routine 11/14/2024 3:45 PM EST Subacute cough Exacerbation of asthma, unspecified asthma severity, unspecified whether persistent POCT RAPID COVID ANTIGEN Routine 11/14/2024 3:45 PM EST Subacute cough Exacerbation of asthma, unspecified asthma severity, unspecified whether persistent POCT GLUCOSE Routine 11/08/2024 11:01 AM EST Type 2 diabetes mellitus without complication, without long-term current use of insulin ([facility]) POCT JUVE-14 URINE DRUG SCREEN Routine 10/06/2024 10:16 AM EST Chronic low back pain, unspecified back pain laterality, unspecified whether sciatica present POCT RAPID COVID ANTIGEN Routine 09/08/2024 4:45 PM EDT Total body pain POCT INFLUENZA B (ID NOW RAPID MOLECULAR) Routine 09/08/2024 4:45 PM EDT Total body pain POCT INFLUENZA A (ID NOW RAPID MOLECULAR) Routine 09/08/2024 4:45 PM EDT Total body pain LIPID PANEL WITH REFLEX TO DIRECT LDL Routine 07/13/2024 3:15 PM EDT Type 2 diabetes mellitus without complication, without long-term current use of insulin ([facility]) Essential hypertension ALBUMIN, RANDOM URINE W/CREATININE Routine 07/13/2024 12:00 AM EDT Type 2 diabetes mellitus without complication, without long-term current use of insulin ([facility]) POCT GLYCATED HEMOGLOBIN, TOTAL Routine 07/04/2024 1:36 PM EDT Type 2 diabetes mellitus without complication, without long-term current use of insulin ([facility]) DIAGNOSTIC - DIAGNOSTIC IMAGING - INTRAORAL - COMPREHENSIVE SERIES OF RADIOGRAPHIC IMAGES Routine 03/04/2024 9:00 AM EDT PERIODIC ORAL EVALUATION - ESTABLISHED PATIENT Routine 03/04/2024 9:00 AM EDT BI MAMMOGRAM DIAGNOSTIC TOMOSYNTHESIS BILATERAL Routine 02/12/2024 10:01 AM EDT HPV MRNA E6/E7 REFLEX TO HPV 16, 18/45 Routine 09/22/2023 10:18 AM EST IMAGE-GUIDED PAP W/AGE BASED SCR,W/CT/NG/TRICH Routine 09/22/2023 10:18 AM EST HM COLONOSCOPY Routine 06/01/2018 from Last 3 Months or Most Recently Relevant to Health Maintenance Results * ECG 12 lead (12/06/2024 5:37 PM EST) Narrative Hernán Worley MD - 12/06/2024 5:37 PM EST NSR 98. No arrhythmia. LAD. Pseudo-normalization of T-waves in lead III compared to 06/2024 EKG from [facility]. Hernán Worley MD ECG ORDERABLES Final Result * OCT, Retina - OU - Both Eyes (11/25/2024 1:00 PM EST) Narrative Aidee Miller, OD - 11/28/2024 1:18 PM EST OCT MACULA INTERPRETATION Optical Coherence Tomography Interpretation Report Reliability: OD: 59 (good quality image) OS: 65 (good quality image) Measurements: Central subfoveal thickness OD: ??201 microns OS: ??235 microns Test findings: OD: Distorted foveal contour due to lamellar hole, all layers intact, no IRF/SRF OS: Normal foveal contour, loss of PIL nasal macula Complete outer retinal atrophy inferior to macula with subretinal elevations. Suspected choroidal neovascular membrane (CNVM) with break in Bruchs Impression and Plan: Lamellar hole right eye (OD) Suspected choroidal neovascular membrane (CNVM) left eye (OS) Refer to retina for eval. Aidee Chanhernan OD OPHTH TOMOGRAPHY Edited Result - Final * POCT Rapid Influenza B GOEL ID NOW (11/14/2024 3:45 PM EST) Only the most recent of2 resultswithin the time period is included. Influenza B Negative Negative, Indeterminate [facility] Swab 11/14/2024 3:45 PM EST us Gino Browning MD POINT OF CARE TEST ENTER/EDIT OR DERABLES Final Result Performing Organization Address [facility] Co de Phone Number [facility] [address] [place] [address] [phone] * POCT Rapid Influenza A GOEL ID NOW (11/14/2024 3:45 PM EST) Only the most recent of2 resultswithin the time period is included. Influenza A Negative Negative, Indeterminate [facility] Swab 11/14/2024 3:45 PM EST us Gino Browning MD POINT OF CARE TEST ENTER/EDIT OR DERABLES Final Result [facility] [address] [place] [address] [phone] * POCT Rapid Strep A GOEL ID NOW (11/14/2024 3:45 PM EST) [facility] Rapid Strep A Screen Negative Negative, None Detected Swab 11/14/2024 3:45 PM EST Result [facility] Gino Browning MD POINT OF CARE TEST ENTER/EDIT OR DERABLES Final Result * POCT Rapid Covid-19 BinaxNOW (11/14/2024 3:45 PM EST) Only the most recent of2 resultswithin the time period is included. [facility] Rapid COVID Ag Negative Swab 11/14/2024 3:45 PM EST Result [facility] us Gino Browning MD POINT OF CARE TEST ENTER/EDIT OR DERABLES Final Result * POCT Glucose (11/08/2024 11:01 AM EST) [facility] Glucose Blood, POC 115 60 - 200 mg/dL QC Media Lot # [id number] Lot# Expiration Date Blood Capillary blood specimen / Unknown 11/08/2024 11:01 AM EST us Rosalba Kingsley MD POINT OF CARE TEST EN TER/EDIT ORDERABLES Final Result * POCT JUVE-14 Urine Drug Screen (10/06/2024 10:16 AM EST) [facility] TCA, Urine Positive Urine Urine specimen obtained by clean catch procedure / Unknown 10/06/2024 10:16 AM EST Jeannette Flores RN - 10/06/2024 10:16 AM EST UTOX cup Lot#[id number] Exp. 07/05/26 Internal Pass Control us Rosalba Kingsley MD POINT OF CARE TEST EN TER/EDIT ORDERABLES Final Result * (ABNORMAL) Lipid Panel with Reflex to Direct LDL (07/13/2024 3:15 PM EDT) Triglycerides 135 <150 mg/dL [facility] Comment:Desirable Triglyceri de: less than 150 mg/dLBorderline High Triglyceride 150-199 mg/dLHigh Triglyceride: 200-499 mg/dLVery High Triglyceride: greater than or equal to 5OO mg/dL Cholesterol 220(H) <200 mg/dL [facility] Comment:Desirable Cholestero l: less than 200 mg/dLBorderline High Cholesterol: 200-239 mg/dLHigh Cholesterol: greater than 239 mg/dL LDL Cholesterol Calculated 134(H) <100 mg/dL [facility] Comment:Desirable LDL: less than 100 mg/dLNear Optimal/Above Optimal LDL: 110- 129 mg/dLBorderline High LDL: 130-159 mg/dLHigh LDL: 160-189 mg/dLVery High LDL: greater than or equal to 190 mg/dL HDL Cholesterol 59 >40 mg/dL [facility] Comment:Desirable HDL: great er than 40 mg/dL Note: This HDL assay may give artificially low results in patients with liver disease. Blood 07/13/2024 3:15 PM EDT 07/13/2024 4:04 PM EDT us Rosalba Kingsley MD LAB BLOOD ORDERABLES Final Result [facility] [address] [place] [address] [phone] * Albumin, Random Urine W/Creatinine (07/13/2024 12:00 AM EDT) Creatinine, Urine 115.51 mg/dL [facility] Microalbumin Urine 28.0 mg/L [facility] Microalbum Creatinine Ratio Ur 24.2 <30 ug/mg cr [facility] Comment:Albumin/Creatinine R atio Reference Ranges: Normal: < 30 ug/mg creatinine Microalbuminuria: 30 - 300 ug/mg creatinineClinical Albuminuria: > 300 ug/mg creatinine Urine (Urine, Random) 07/13/2024 07/13/2024 Rosalba Kingsley MD LAB URINE ORDERABLES Final Result [facility] [address] [facility] [place] [phone] * POCT HGB A1C (07/04/2024 1:36 PM EDT) Hemoglobin A1C 6.0 4.0 - 6.0 % QC Media Lot # [id number] Lot# Expiration Date [id number] Blood 07/04/2024 1:36 PM EDT us Rosalba Kingsley MD POINT OF CARE TEST EN TER/EDIT ORDERABLES Final Result * BI Mammogram Diagnostic Tomosynthesis Bilateral (02/12/2024 10:01 AM EDT) Anatomical Region Laterality Modality Breast Bilateral Mammography 02/12/2024 10:0 1 AM EDT Narrative 02/12/2024 12:05 PM EDT ? [facility] [place] ? [address] ?[place] [address] ? Mammography Report ? Signed ? Patient: Gutierrez,Kerline ?MR#: [id number] ? : 1965 ?Acct:[id number] ? Age/Sex: 58 / F ?ADM Date: 03/29/24 ? Loc: HO.MAMMO ? Attending Dr: Rosalba Kingsley MD ? Ordering Physician: Rosalba Shin MD ?Results: ?? 2Benign Findings ? Date of Service: 02/12/24 ?Follow Up: 1 Year From Orig ?? inal Mammogram ? Procedure(s): MM tomosynthesis diagnostic BI ?? Accession Number(s): [id number] ? cc: Rosalba Shin MD ? EXAMINATION: ?? MM DIAGNOSTIC DIGITAL BREAST TOMOSYNTHESIS, BILATERAL ?? US BREAST LIMITED, RIGHT ? MAMMOGRAPHY: ?? CLINICAL INFORMATION: ? 58-year-old female complaining of 1 year of palpable abnormality right ?? breast 9:00 axis which is mildly tender at times. Patient also due ?? for bilateral screening. ? COMPARISON: ?? Mammography: 04/21/2023, 08/31/2021, 03/09/2018, 02/18/2017 ? TECHNIQUE: ?? Digital breast tomosynthesis is performed in both the craniocaudal and ?? mediolateral oblique views along with computer-aided detection (CAD). ?? Synthesized 2D images are generated from the tomosynthesis. In addition ?? to standard views, a full-field right mediolateral view was obtained, ?? as well as spot compression 3-D right MLO view. Added full-field right ?? CC, right MLO, left CC, and left MLO views were obtained. ? FINDINGS: ?? There are scattered areas of fibroglandular density (ACR BI-RADS breast ?? composition Category b). ? There are no significant masses, abnormal calcifications, or other ?? abnormalities. ??Parenchymal pattern is similar to prior studies. There ?? is no developing density or architectural abnormality. There are mild ?? vascular calcifications and a few scattered benign calcifications in ?? both breasts. Mild parenchymal asymmetry in the upper outer left breast ?? has been stable on numerous prior exams and is attributable to normal ?? tissue density. The axilla and skin contours are unremarkable. No ?? significant changes. ? There is no mammographic abnormality in the region of palpable concern ?? as marked by the patient in the right breast 9:00 axis. There are a few ?? normal-appearing low axillary lymph nodes present. ? ULTRASOUND: ?? CLINICAL INFORMATION: ?? As above. ? COMPARISON: ?? No prior. ? TECHNIQUE: ?? Targeted sonographic evaluation was performed using a high frequency ?? linear transducer. Attention was given to the 9:00 axis, upper outer ?? quadrant right breast in the area of palpable concern. Selected ?? archived documentation. ? FINDINGS: ? RIGHT BREAST: There is a mixture of fatty and fibroglandular tissue. ?? No suspicious mass is seen. ??There is no pathologic acoustic shadowing. ?? There is no axillary adenopathy. No definite correlate to the palpable ?? focus is identified sonographically. ? MM/MM tomosynthesis diagnostic BI ?? IMPRESSION: ?? There are no findings suspicious for malignancy in either breast. ? The palpable focus of abnormality in the 9:00 axis right breast has no ?? ultrasound or mammographic correlate. Clinical management is ?? recommended. ? There are benign findings in both breasts. ? OVERALL ASSESSMENT: ?? Mammography: BI-RADS 2 - Benign Findings ?? Ultrasound: BI-RADS 2 - Benign Findings ? RECOMMENDATION: ?? 1. Patient should be managed based on the clinical impression. ?2. ?? Otherwise, routine annual screening mammography. ? This patient's information was entered into a reminder system with a ?? target due date for their next mammogram. ? Dictated By: ?Dl Burton MD ? Signed By: ?<Electronically signed by Dl Burton MD in OV> ?02/12/24 1201 ? DD/ 1001 ? TD/TT: ? Auto Battery Builder: ? Procedure Note Pauline Alejandro - 02/12/[address] [place] [facility] [address] [place] [address] Mammography Report Signed Patient: Diana Gutierrez#: [id number] : 1965Acct:[id number] Age/Sex: 58 / FADM Date: 02/12/24 Loc: HO.MAMMO Attending Dr: Rosalba Kingsley MD Ordering Physician: Rosalba Shinults: 2Benign Findings Date of Service: 02/12/24Follow Up: 1 Year From Orig ina Mammogram Procedure(s): MM tomosynthesis diagnostic BI Accession Number(s): [id number] cc: Rosalba Shin MD EXAMINATION: MM DIAGNOSTIC DIGITAL BREAST TOMOSYNTHESIS, BILATERAL US BREAST LIMITED, RIGHT MAMMOGRAPHY: CLINICAL INFORMATION: 58-year-old female complaining of 1 year of palpable abnormality right breast 9:00 axis which is mildly tender at times. Patient also due for bilateral screening. COMPARISON: Mammography: 04/21/2023, 08/31/2021, 03/09/2018, 02/18/2017 TECHNIQUE: Digital breast tomosynthesis is performed in both the craniocaudal and mediolateral oblique views along with computer-aided detection (CAD). Synthesized 2D images are generated from the tomosynthesis. In addition to standard views, a full-field right mediolateral view was obtained, as well as spot compression 3-D right MLO view. Added full-field right CC, right MLO, left CC, and left MLO views were obtained. FINDINGS: There are scattered areas of fibroglandular density (ACR BI-RADS breast composition Category b). There are no significant masses, abnormal calcifications, or other abnormalities. Parenchymal pattern is similar to prior studies. There is no developing density or architectural abnormality. There are mild vascular calcifications and a few scattered benign calcifications in both breasts. Mild parenchymal asymmetry in the upper outer left breast has been stable on numerous prior exams and is attributable to normal tissue density. The axilla and skin contours are unremarkable. No significant changes. There is no mammographic abnormality in the region of palpable concern as marked by the patient in the right breast 9:00 axis. There are a few normal-appearing low axillary lymph nodes present. ULTRASOUND: CLINICAL INFORMATION: As above. COMPARISON: No prior. TECHNIQUE: Targeted sonographic evaluation was performed using a high frequency linear transducer. Attention was given to the 9:00 axis, upper outer quadrant right breast in the area of palpable concern. Selected archived documentation. FINDINGS: RIGHT BREAST: There is a mixture of fatty and fibroglandular tissue. No suspicious mass is seen. There is no pathologic acoustic shadowing. There is no axillary adenopathy. No definite correlate to the palpable focus is identified sonographically. MM/MM tomosynthesis diagnostic BI IMPRESSION: There are no findings suspicious for malignancy in either breast. The palpable focus of abnormality in the 9:00 axis right breast has no ultrasound or mammographic correlate. Clinical management is recommended. There are benign findings in both breasts. OVERALL ASSESSMENT: Mammography: BI-RADS 2 - Benign Findings Ultrasound: BI-RADS 2 - Benign Findings RECOMMENDATION: 1. Patient should be managed based on the clinical impression. 2. Otherwise, routine annual screening mammography. This patient's information was entered into a reminder system with a target due date for their next mammogram. Dictated By: Dl Burton MD Signed By: <Electronically signed by Dl Burton MD in OV> 02/12/24 1201 DD/ 1001 TD/TT: Auto Battery Builder: us Rosalba Kingsley MD IMG BI PROCEDURES Arash jamaal Result - Final * Image-Guided Pap with Age-Based Screening??with CT/NG,??Trichomonas (09/22/2023 10:18 AM EST) Trichomonas (NAAT) NOT DETECTED NOT DETECTED [facility] Comment:The analytical perfo rmance characteristics of thisassay have been determined by [employer]. Themodifications have not been cleared or approved bythe FDA. This assay has been validated pursuant to theCLIA regulations and is used for clinical purposes.For additional information, please refer tohttp://education.NOTIK/faq/Trichomonastma(This link is being provided for information/educational purposes only.)THIS TEST WAS PERFORMED AT:[facility] [address] [phone] GARCIA MD CTNG Ref Lab NOT DETECTED NOT DETECTED [facility] NG Ref Lab NOT DETECTED NOT DETECTED [facility] 09/22/2023 10:1 8 AM EST 09/23/2023 7:30 AM EST us Rosalba Kingsley MD LAB CYTOLOGY ORDERABL ES Final Result Performing Organization Address [facility] Co de Phone Number [facility] [address] [place] [address] [phone] * HPV mRNA E6/E7 w/Reflex to HPV Genotypes 16, 18/45 (09/22/2023 10:18 AM EST) HPV nRNA E6/E7 Not Detected Not Detected [facility] Comment:Methodology: Transcr iption-Mediated AmplificationThis assay detects E6/E7 viral messenger RNA (mRNA) from 14high-risk HPV types (16,18,31,33,35,39,45,51,52,56,58,59,66,68).Cervical sources are required for HPV testing.If a vaginal source from a patient who has had atotal hysterectomy with removal of cervix wassubmitted, please contact the testing laboratoryfor alternative testing options.For additional information, please refer tohttp://education.NOTIK/faq/LGE075o6(This link if provided for information/educational purposes only.)THIS TEST WAS PERFORMED AT:[facility] [place] [phone] GARCIA MD HPV mRNA E6/E7 [facility] HPV 16 RNA [facility] HPV 18/45 RNA [facility] 09/22/2023 10:1 8 AM EST 09/23/2023 7:30 AM EST us Rosalba Kingsley MD LAB CYTOLOGY ORDERABL ES Final Result Performing Organization Address [facility] Co de Phone Number [facility] [address] [place] [address] [phone] * Hm Colonoscopy (06/01/2018) Colonoscopy Normal Normal Narrative Aditi Durand - 06/01/2018 Recommended 10 year follow up us Historical Provider HEALTH MAINTENANCE Final Result from Last 3 Months or Most Recently Relevant to Health Maintenance Insurance [place] [facility] MEDICAID STAND ADULT Care Teams Web Editor Relationship Specialty Start Date End Date Rosalba Shin MD [address] [place] [address] PCP - General Family Medicine 12/26/20
--- OUTSIDE RECORDS SUMMARY | 2024-12-06 18:09 | XMS_ITS | Encounter Summary ---
Author Organization [employer] Address [address] [place] [address] Care Team Providers Care Commodity Analyst Name Role Phone Rosalba Shin MD Primary Care Provide r Encounter Details Date Type Department Care Team (Latest Contact Info) Description 11/08/2024 Travel Social History Tobacco Use Types Packs/Day [...] 12/06/2024 6:40 PM EST Office Visit [facility] [address] [place] [address] [phone] Hernán Worley MD [address] [place] [phone] Left-sided chest pain (Primary Dx) 12/22/2024 11:30 AM EST Clinical Support [facility] [address] [place] [phone] Jeannette Thomas, KARLENE documented as of this encounter Visit Diagnoses Not on filedocumented in this encounter Additional Health Concerns Assessment Noted Time PHQ-9 Depression Total Score: 0 08/12/20 24 11:42 AM EDT documented as of this encounter Care Teams Commodity Analyst Relationship Specialty Start Date End Date Rosalba Shin MD [address] [place] [address] [phone] PCP - General Family Medicine 12/26/20 documented as of this encounter
--- OUTSIDE RECORDS SUMMARY | 2024-12-06 18:09 | XMS_ITS | Encounter Summary ---
Author Organization [employer] Address [address] [facility] 7t [place] [address] Care Team Providers Care Mold Construction Supervisor Name Role Phone Rosalba Shin MD Primary Care Provide r Reason for Visit * Reason Comments Med Refill Encounter Details Date Type Department Care Team ([facility] st Contact Info) Description 12/02/2024 Refill [facility] [address] [place], [place] [phone] Rosalba Shin MD [address] [place] [address] Fibromyalgia; Primary insomnia; Chronic low back pain, unspecified back pain laterality, unspecified whether sciatica present; Pain; Rash; Mild intermittent asthma with exacerbation Social [...] Description 12/06/2024 6:40 PM EST Office Visit [facility] [address] [place] [phone] Hernán Worley MD [address] [place] [phone] Left-sided chest pain (Primary Dx) 12/22/2024 11:30 AM EST Clinical Support [facility] [address] [place] [phone] Jeannette Thomas RN documented as of this encounter Visit Diagnoses Diagnosis Fibromyalgia Unspecified myalgia and myositis Primary insomnia Persistent disorder of initiating or maintaining sleep Chronic low back pain, unspecified back pain laterality, unspecified whether sciatica present Pain Generalized pain Rash Rash and other nonspecific skin eruption Mild intermittent asthma with exacerbation Unspecified asthma, with exacerbation Left-sided chest pain- Primary documented in this encounter Additional Health Concerns Assessment Noted Time PHQ-9 Depression Total Score: 0 08/12/20 24 11:42 AM EDT documented as of this encounter Care Teams Mold Construction Supervisor Relationship Specialty Start Date End Date Rosalba Shin MD [address] [place] [phone] PCP - General Family Medicine 12/26/20 documented as of this encounter
--- OUTSIDE RECORDS SUMMARY | 2024-12-06 18:09 | XMS_ITS | Encounter Summary ---
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 Aidee Miller, OD [address] [place] [address] Phone: tel: [place]: [place] [address] [place] [phone] Phone: tel: fax: Referral ID Status Reason Start Date Expiration Date Visits Requested Visits Authorized [id number] Pending Review Specialty Services Required 11/25/2024 11/25/2025 1 1 Encounter Details Date Type Department Care Team (Latest Contact Info) Description 11/25/2024 1:00 PM EST Office Visit [facility] [address] [place] [address] Aidee Miller, OD [address] [place] [address] Type 2 diabetes mellitus without ophthalmic manifestations (CMS/HCC) (Primary Dx); 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 female. HPI T2DM exam. Last A1c 6.3% (07/04/24). Patient does not measure BSL at home as diabetes mellitus (DM) has been controlled since gastric bypass surgery Patient reports mild blurry vision both eyes (OU), pt occaisonally wears reading glasses. Patient reports itchiness and burning. Patient uses ATs BID which help with burning/itching. History of cataract sx both eyes (OU) 2013 Last edited by Aidee Miller, OD on 11/25/2024 1:57 PM. Current Outpatient Medications Medication Sig Dispense Refill albuterol (Ventolin HFA) [...] HOURS 90 tablet 1 Deep [place] Nasal [place] 0.65 % nasal spray SPRAY 2 SPRAYS IN EACH NOSTRIL NEEDED FOR NASAL CONGESTION 44 mL 1 dextran 70-hypromellose (artificial tears) 0.1-0.3 % ophthalmic solution Administer 1 drop into both eyes if needed in the morning, at noon, and at bedtime for dry eyes. 30 mL 1 Dextromethorphan-guaiFENesin (Mucinex DM) 30-600 MG [...] every 12 (twelve) hours. 13 g 2 naloxone (Narcan) 4 mg/0.1 mL nasal spray Administer 1 spray (4 mg) into affected nostril(s) if needed for opioid reversal. May repeat every 2-3 minutes if needed, alternating nostrils, until medicalassistance becomes available. 2 each 3 omeprazole OTC (PriLOSEC OTC) 20 MG EC [...] BLOOD SUGAR TWICE DAILY 100 each 1 venlafaxine XR (Effexor XR) 37.5 MG 24 [...] into the shoulder, thigh, or buttocks. No current facility-administered medications for this visit. Past Medical History: Diagnosis Date History of eye surgery both eyes lens 15 plus years ago History of gastric bypass aprox 15+ years ago Hypertension Hyperthyroidism History reviewed. No pertinent surgical history. No family history on file. Tobacco Use: Low Risk (11/25/2024) Tobacco Smoking Tobacco Use: Never Smokeless Tobacco Use: Never Passive Exposure: Never No Known Allergies ROS Positive for: Endocrine, Eyes Negative for: Constitutional, Gastrointestinal, Neurological, Skin, Genitourinary, Musculoskeletal,HENT, Cardiovascular, Respiratory, Psychiatric, Allergic/Imm, Heme/Lymph Last edited by Aidee Miller, OD on 11/25/2024 12:50 PM. Base Eye Exam Visual Acuity (Snellen - Linear) Right Left Both Dist sc 20/50 -1 20/25 +2 Dist ph sc 20/25 -3 Near sc 20/30 Tonometry (iCare , 1:02 PM) Right Left Pressure 16 17 Pupils Pupils APD Right PERRL None Left PERRL None Visual Cheung (Counting fingers) Left Right Full Full Extraocular Movement Right Left Full Full Neuro/Psych Oriented x3: Yes Dilation Both eyes: 1.0% tropicamide @ 1:06 PM Slit Lamp and Fundus Exam External Exam Right Left External Normal Normal Slit Lamp Exam Right Left Lids/Lashes Clean and clear Clean and clear Conjunctiva/Sclera White and quiet White and quiet Cornea Clear Clear Anterior Chamber Deep and quiet, angles open gr 4 Deep and quiet, angles open gr 4 Iris Round and reactive, (-) NVI Round and reactive, (-) NVI Lens PC-IOL, clear and centered; s/p YAG cap PC-IOL, clear and centered; s/p YAG cap Fundus Exam Right Left Vitreous Clear, (-) schaffers sign Clear, (-) schaffers sign Disc Severely titled with surroudning PPA, (-) NVD [place] and healthy, surrounding PPA (-) NVD C/D Ratio Vertical 0.35 0.35 C/D Ratio Horizontal 0.35 0.35 Macula Flat with even pigmentation, (-) CME Flat with even pigmentation, (-) CME Vessels Normal course and caliber, (-) NVE Normal course and caliber, (-) NVE Periphery No holes/tears/detachments 360 Pigmented retinal atrophy extending from ONH inferiorly, encroaching towards inferior macula, to inferior Temporal periphery. 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 Some breaks in Bruchs membrane present and choroidal neovascular membrane (CNVM) suspected - refer to retina for eval - OCT, Retina - OU - Both Eyes - Referral to Ophthalmology; Future Lamellar macular hole of right eye - Pt ed on findings and advised to RTC immediately if any changes in vision are noted - OCT, Retina - OU - Both Eyes Dry eyes, bilateral - Recommended the use of artificial tears in both eyes 1gtt 2-4x/day Presbyopia - Held off on dispensing spec Rx until after retina eval completed RTC in 6 months for DFE f/u or sooner PRN Aidee Miller, OD 11/28/2024, 1:04 PM Agile Project Manager Source: __ None _x_ Bilingual Staff __ Qualified Staff Cook Helper Juice __ Telephone Agile Project Manager; ID# __ Agile Project Manager brought by patient (family member, friend, HUMAN RESOURCES RECEPTIONIST, etc) __ In person branch lead __ Ipad Agile Project Manager; ID#: Language Spoken During Exam: Sinhala documented in this encounter Plan of Treatment Upcoming Encounters Date Type Department Care Team (Latest Contact Info) Description 12/06/2024 6:40 PM EST Office Visit [facility] [address] [place] [phone] Hernán Worley MD [address] [place] [phone] Left-sided chest pain (Primary Dx) 12/22/2024 11:30 AM EST Clinical Support [facility] [address] [place], [place] [phone] Jeannette Thomas RN Scheduled Referrals Name Type Priority Associated Diagnoses Orde r Schedule Referral to Ophthalmology Outpatient Referral Routine 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
--- OUTSIDE RECORDS SUMMARY | 2024-12-06 18:10 | XMS_ITS | Encounter Summary ---
Author Organization [facility] Address [address] [place] [address] 7t [place] [address] Care Team Providers Care Investment Banking Analyst Name Role Phone Rosalba Shin MD Primary Care Provide r Reason for Visit * Reason Comments Med Refill Encounter Details Date Type Department Care Team (Late st Contact Info) Description 03/17/2023 Refill [facility] [address] [place] [address] [phone] Rosalba Shin MD [address] [place] [address] [phone] Primary insomnia Social History Tobacco Use Types Packs/Day Years Used Date Smoking Tobacco: Never Smokeless Tobacco: Never Alcohol Use Standard Drinks/Week Comments Never 0 (1 standard drink = 0.6 oz pur e alcohol) Comments Unknown Sex and Gender Information Value Date Recorded Sex Assigned at Female 09/15/2022 10:14 AM EDT Legal Sex Female 10:14 AM EDT Gender Identity Female 09/15/2022 10:14 AM EDT Sexual Orientation Straight 09/15/2022 10 :14 AM EDT documented as of this encounter Plan of Treatment Upcoming Encounters Date Type Department Care Team (Latest Contact Info) Description 12/06/2024 6:40 PM EST Office Visit [facility] [address] [place] [address] [phone] Hernán Worley MD [address] [place] [address] [phone] Left-sided chest pain (Primary Dx) 12/22/2024 11:30 AM EST Clinical Support [facility] [address] [place] [address] Jeannette Thomas, KARLENE documented as of this encounter Visit Diagnoses Diagnosis Primary insomnia Persistent disorder of initiating or maintaining sleep Left-sided chest pain- Primary documented in this encounter Care Teams Investment Banking Analyst Relationship Specialty Start Date End Date Rosalba Shin MD [address] [place] [address] PCP - General Family Medicine 12/26/20 documented as of this encounter
--- OUTSIDE RECORDS SUMMARY | 2024-12-06 18:10 | XMS_ITS | Encounter Summary ---
Author Organization [employer] Address [address] [facility] 7t [place] [address] Care Team Providers Care Military Science Instructor Name Role Phone Rosalba Shin MD Primary Care Provide r Reason for Visit * Reason Comments Med Refill Encounter Details Date Type Department Care Team ([facility] st Contact Info) Description 06/08/2024 Refill [facility] [address] [place], [place] [phone] Rosalba Shin MD [address] [place], [place] [phone] Fibromyalgia Social History Tobacco Use Types Packs/Day Years Used Date Smoking Tobacco: Never Smokeless Tobacco: Never Alcohol Use Standard Drinks/Week Comments Never 0 (1 standard drink = 0.6 oz pur e alcohol) Depression Answer Date Recorded Patient Health Questionnaire-9 Score 7 04/06/2023 Housing Stability Answer Date Recorded What is your housing situation today? I have sailaja mujiac 09/01/[address] you li ve. Do you have problems with any of the following? None of the above 09/01/2023 Food Insecurity Answer Date Recorded Within the past 12 months, y ou worried that your food would run out before you got money to buy more: Never True 09/01/2023 Within the past 12 months,th e food you bought just didn't last and you didn't have enough money to get more: Never True Transportation Answer Date Recorded In the past 12 months, has l ack of transportation kept you from medical appts, meetings, work or from getting things needed for daily living? No 09/01/2023 Utilities Answer Date Recorded In the past 12 months, has t he electric, gas, oil or water company threatened to shut off services in your home? No 09/01/2023 Depression Answer Date Recorded Patient Health Questionnaire-2 Score 1 04/06/2023 Comments Unknown Sex and Gender Information Value Date Recorded Sex Assigned at Female 09/15/2022 10:14 AM EDT Legal Sex Female 10:14 AM EDT Gender Identity Female 09/15/2022 10:14 AM EDT Sexual Orientation Straight 09/15/2022 10 :14 AM EDT documented as of this encounter Plan of Treatment Upcoming Encounters Date Type Department Care Team (Latest Contact Info) Description 12/06/2024 6:40 PM EST Office Visit [facility] [address] [place] [address] [phone] Hernán Worley MD [address] [place] [phone] Left-sided chest pain (Primary Dx) 12/22/2024 11:30 AM EST Clinical Support [facility] [address] [place] [phone] Jeannette Thomas RN documented as of this encounter Visit Diagnoses Diagnosis Fibromyalgia Unspecified myalgia and myositis Left-sided chest pain- Primary documented in this encounter Additional Health Concerns Assessment Noted Time PHQ-9 Depression Total Score: 7 04/06/20 23 2:10 PM EDT documented as of this encounter Care Teams Military Science Instructor Relationship Specialty Start Date End Date Rosalba Shin MD [address] [place] [address] [phone] PCP - General Family Medicine 12/26/20 documented as of this encounter
--- OUTSIDE RECORDS SUMMARY | 2024-12-06 18:10 | XMS_ITS | Encounter Summary ---
Author Organization [employer] Address [address] [facility] 7t [place] [address] Care Team Providers Care Diplomatic Interpreter/Translator Name Role Phone Rosalba Shin MD Primary Care Provide r Reason for Visit * Reason Comments Med Refill Encounter Details Date Type Department Care Team ([facility] st Contact Info) Description 10/22/2023 Refill [facility] [address] [place], [place] [phone] Maria L Navarro MD [address] [place], [place] [phone] Chronic low back pain, unspecified back pain laterality, unspecified whether sciatica present Social History Tobacco Use Types Packs/Day Years Used Date Smoking Tobacco: Never Smokeless Tobacco: Never Alcohol Use Standard Drinks/Week Comments Never 0 (1 standard drink = 0.6 oz pur e alcohol) Depression Answer Date Recorded Patient Health Questionnaire-9 Score 7 04/06/2023 Housing Stability Answer Date Recorded What is your housing situation today? I have sailaja mujica 09/01/[address] you li [...] Description 12/06/2024 6:40 PM EST Office Visit [facility] [address] [place] [address] [phone] Hernán Worley MD [address] [place] [phone] Left-sided chest pain (Primary Dx) 12/22/2024 11:30 AM EST Clinical Support [facility] [address] [place] [address] [phone] Jeannette Thomas RN documented as of this encounter Visit Diagnoses Diagnosis Chronic low back pain, unspecified back pain laterality, unspecified whether sciatica present Left-sided chest pain- Primary documented in this encounter Additional Health Concerns Assessment Noted Time PHQ-9 Depression Total Score: 7 04/06/20 23 2:10 PM EDT documented as of this encounter Care Teams Diplomatic Interpreter/Translator Relationship Specialty Start Date End Date Rosalba Shin MD [address] [place] [address] [phone] PCP - General Family Medicine 12/26/20 documented as of this encounter
--- OUTSIDE RECORDS SUMMARY | 2024-12-06 18:10 | XMS_ITS | Encounter Summary ---
Author Organization [employer] [facility] Address [address] [place] [address] 7t [place] [address] Care Team Providers Care Energy Auditor Name Role Phone Rosalba Shin MD Primary Care Provide r Reason for Visit * Reason Comments Med Refill Encounter Details Date Type Department Care Team (Late st Contact Info) Description 03/10/2023 Refill [facility] [address] [place] [address] [phone] Name, MD Gino [address] [place] [address] [phone] Chronic low back pain, unspecified back pain [...] Description 12/06/2024 6:40 PM EST Office Visit [facility] [address] [place] [address] [phone] Hernán Worley MD [address] [place] [address] [phone] Left-sided chest pain (Primary Dx) 12/22/2024 11:30 AM EST Clinical Support [facility] [address] [place] [address] Jeannette Thomas RN documented as of this encounter Visit Diagnoses Diagnosis Chronic low back pain, unspecified back pain laterality, unspecified whether sciatica present Left-sided chest pain- Primary documented in this encounter Care Teams Energy Auditor Relationship Specialty Start Date End Date Rosalba Shin MD [address] [place] [address] PCP - General Family Medicine 12/26/20 documented as of this encounter
--- OUTSIDE RECORDS SUMMARY | 2024-12-06 18:10 | XMS_ITS | Encounter Summary ---
Author Organization [facility] Address [address] [facility] 7t [place] [address] Care Team Providers Care State Tested Nursing Assistant Name Role Phone Rosalba Shin MD Primary Care Provide r Reason for Referral * Consultation (Routine) - Authorized Specialty Diagnoses / Procedures Referred By Rosette galvan Referred To Contact Pulmonary Disease Diagnoses Moderate persistent asthma, unspecified whether complicated Rosalba Shin MD [address] [place] [phone] Phone: tel: fax: [facility] [place] [facility] [address] 1st Floor [place], [place] Phone: tel: fax: Referral ID Status Reason Start Date Expiration Date Visits Requested Visits Authorized [id number] Authorized Specialty Services Required 4 11/11/2025 6 6 * Consultation (Routine) - Authorized Specialty Diagnoses / Procedures Referred By Contac t Referred To Contact Family Medicine Diagnoses Rash Rosalba Shin MD [address] [place] [address] Phone: tel: fax: Referral ID Status Reason Start Date Expiration Date Visits Requested Visits Authorized [id number] Authorized Specialty Services Required 4 11/08/2025 1 1 Encounter Details Date Type Department Care Team (Late st Contact Info) Description 11/08/2024 11:00 AM EST Office Visit [facility] [address] [place] [address] Rosalba Shin MD [address] [place] [address] Moderate persistent asthma, unspecified whether complicated (Primary Dx); Type 2 diabetes mellitus without complication, without long-term current use of insulin (CMS/HCC); Fibromyalgia; Rash; Dry eye Social History Tobacco Use Types Packs/Day Years [...] Sign Reading Time Taken Comments Blood Pressure 132/79 11/08/2024 11:01 AM EST Pulse 89 11/08/2024 11:01 AM EST Temperature 36.7 ??C (98 ??F) 11/08/2024 11: 01 AM EST Respiratory Rate 20 11/08/2024 11:0 1 AM EST Oxygen Saturation - - Inhaled Oxygen Concentration - - Weight 92.9 kg (204 lb 12.8 oz) 024 11:01 AM EST Height 165.1 cm (5' 5 ) 11/08/2024 11:0 1 AM EST Body Mass Index 34.08 11/08/2024 11:01 AM EST documented in this encounter Progress Notes * Rosalba Kingsley MD - 11/08/2024 11:00 AM EST SUBJECTIVE: Kerline Gutierrez is a 59 y.o. year old female who presents for Chronic Disease Management . Acute Concerns: Rash itchy on face (forehead) Disseminated joint pain and myalgias Dry itchy eyes Social History Social History Narrative Not on file Patient Active Problem List Diagnosis Acquired hypothyroidism Hypertensive disorder Mixed anxiety and depressive disorder Rheumatoid arthritis involving multiple sites with positive rheumatoid factor (CMS/HCC) Sjogrens syndrome (CMS/HCC) Type 2 diabetes mellitus (CMS/HCC) Allergic rhinitis Chronic low back pain Constipation Heartburn Hypercholesterolemia Obesity Pain in eye Perimenopause Postphlebitic syndrome Rash Spinal stenosis of lumbar region Essential hypertension Fibromyalgia Encounter for screening mammogram for malignant neoplasm of breast Bilateral carpal tunnel syndrome Hot flashes due to menopause Dermatitis Pruritus of both eyes Encounter for Papanicolaou smear for cervical cancer screening Pain in toe Lipoma Breast nodule Atopic dermatitis of scalp Lipoma of breast Bronchitis Mild intermittent asthma with exacerbation Severe dental caries Non-restorable tooth Moderate asthma Hypokalemia Dry eye No family history on file. Review of Systems Constitutional: Negative. HENT: Negative. Eyes: Positive for itching. Respiratory: Negative. Cardiovascular: Negative. Musculoskeletal: Positive for arthralgias and myalgias. Skin: Positive for rash. OBJECTIVE: Vitals: 11/08/24 1101 BP: 132/79 BP Location: Left arm Patient Position: Sitting BP Cuff Size: Large adult Pulse: 89 Resp: 20 Temp: 98 ??F (36.7 ??C) TempSrc: Oral Weight: 204 lb 12.8 oz (92.9 kg) Height: 5' 5 (1.651 m) Physical Exam Constitutional: Appearance: Normal appearance. Cardiovascular: Rate and Rhythm: Normal rate and regular rhythm. Pulmonary: Effort: Pulmonary effort is normal. Breath sounds: Normal breath sounds. Abdominal: General: Abdomen is flat. Palpations: Abdomen is soft. Musculoskeletal: Right lower leg: No edema. Left lower leg: No edema. Neurological: Mental Status: She is alert. Follow Up: Follow up for 4 months chronic conditions . Current Outpatient Medications on File Prior to Visit Medication Sig Dispense Refill albuterol (Ventolin HFA) 108 (90 Base) MCG/ACT inhaler INHALE 2 PUFFS BY MOUTH FOUR TIMES DAILY NEEDED 18 g 1 Alcohol Swabs 70 % pads Aspirin Low Dose 81 MG EC tablet TAKE 1 TABLET BY MOUTH EVERY MORNING 90 tablet 1 Blood Glucose Monitoring Suppl (Blood Glucose Monitor [...] HOURS 90 tablet 1 Deep Sea Nasal Maryneal 0.65 % nasal spray SPRAY 2 SPRAYS [...] cream Apply topically every 12 (twelve) hours. traMADol (Ultram) 50 MG tablet Take 1 tablet (50 mg) by mouth every 8 (eight) hours if needed for severe pain for up to 28 days. Do not start before October 12, 2024. 84 tablet 0 TRUEplus Lancets 33G misc 1 each 2 [...] mL into the shoulder, thigh, or buttocks. [DISCONTINUED] dextran 70-hypromellose (artificial tears) 0.1-0.3 % ophthalmic solution Administer 1 drop into affected eye(s) in the morning and 1 drop at noon and 1 drop in the evening and 1 drop before bedtime. [DISCONTINUED] triamcinolone (Kenalog) 0.1 % ointment APPLY TO THE AFFECTED AREA(S) TWICE DAILY 80 g 0 No current facility-administered medications on file prior to visit. Problem List Items Addressed This Visit Type 2 diabetes mellitus ([facility]) Diabetes is: controlled - Lab Results Component Value Date HGBA1C 6.0 07/04/2024 HGBA1C 5.8 02/09/2024 HGBA1C 6.1 (A) 08/11/2023 - Lab Results Component Value Date MICROALBUR 28.0 07/13/2024 CREATININE 0.76 07/13/2024 -Changes: none - Diabetic eye exam: - Diabetic foot exam: - Continue lifestyle modifications - Continue current medications - Follow up: 3 months Relevant Orders POCT Glucose (Completed) Fibromyalgia Patient was educated about multidisciplinary approach for her condition, it was advise cardiovascular exercise, maintain hydration, treat anxiety/depression and take medications as directed Relevant Medications acetaminophen (Tylenol 8 Hour) 650 MG ER tablet Rash Relevant Medications betamethasone, augmented, (Diprolene) 0.05 % ointment Other Relevant Orders Referral to [facility] Derm Skin Adult Dry eye Relevant Medications dextran 70-hypromellose (artificial tears) 0.1-0.3 % ophthalmic solution Moderate asthma - Primary I will refer her to pulmonology C/w same medication regimen Relevant Orders Referral to Pulmonology documented in this encounter Miscellaneous Notes * Assessment & Plan Note - Rosalba Kingsley MD - 11/08/2024 2:03 PM EST Associated Problem(s): Type 2 diabetes mellitus ([facility]) Diabetes is: controlled - Lab Results Component Value Date HGBA1C 6.0 07/04/2024 HGBA1C 5.8 02/09/2024 HGBA1C 6.1 (A) 08/11/2023 - Lab Results Component Value Date MICROALBUR 28.0 07/13/2024 CREATININE 0.76 07/13/2024 -Changes: none - Diabetic eye exam: - Diabetic foot exam: - Continue lifestyle modifications - Continue current medications - Follow up: 3 months * Assessment & Plan Note - Rosalba Kingsley MD - 11/08/2024 2:03 PM EST Associated Problem(s): Fibromyalgia Patient was educated about multidisciplinary approach for her condition, it was advise cardiovascular exercise, maintain hydration, treat anxiety/depression and take medications as directed * Assessment & Plan Note - Rosalba Kingsley MD - 11/08/2024 2:03 PM EST Associated Problem(s): Moderate asthma I will refer her to pulmonology C/w same medication regimen documented in this encounter Plan of Treatment Upcoming Encounters Date Type Department Care Team (Latest Contact Info) Description 12/06/2024 6:40 PM EST Office Visit [facility] [address] [place] [phone] Hernán Worley MD [address] [place] [address] [phone] Left-sided chest pain (Primary Dx) 12/22/2024 11:30 AM EST Clinical Support [facility] [address] [place] [address] [phone] Jeannette Thomas RN Scheduled Referrals Name Type Priority Associated Diagnoses Orde r Schedule Referral to [facility] Derm Skin Adult Outpatient Referral Routine Rash Expected: 11/08/2024 (Approximate), Expires: 11/08/2025 Referral to Pulmonology Outpatient Referral Routine Moderate persistent asthma, unspecified whether complicated Expected: 11/08/2024 (Approximate), Expires: 11/08/2025 documented as of this encounter Procedures Procedure Name Priority Date/Time Associated Diagnosis Comments POCT GLUCOSE Routine 11/08/2024 11:01 AM EST Type 2 diabetes mellitus without complication, without long-term current use of insulin ([facility]) documented in this encounter Results * POCT Glucose (11/08/2024 11:01 AM EST) Glucose Blood, POC 115 60 - 200 mg/dL QC Media Lot # [id number] Lot# Expiration Date Blood Capillary blood specimen / Unknown 11/08/2024 11:01 AM EST Rosalba Kingsley MD POINT OF CARE TEST EN TER/EDIT ORDERABLES Final Result documented in this encounter Visit Diagnoses Diagnosis Moderate persistent asthma, unspecified whether complicated- Primary Type 2 diabetes mellitus without complication, without long-term current use of insulin ([facility]) Fibromyalgia Unspecified myalgia and myositis Rash Rash and other nonspecific skin eruption Dry eye Left-sided chest pain- Primary documented in this encounter Additional Health Concerns Assessment Noted Time PHQ-9 Depression Total Score: 0 08/12/20 24 11:42 AM EDT documented as of this encounter Care Teams State Tested Nursing Assistant Relationship Specialty Start Date End Date Rosalba Shin MD [address] [place] [address] PCP - General Family Medicine 12/26/20 documented as of this encounter
--- OUTSIDE RECORDS SUMMARY | 2024-12-06 18:10 | XMS_ITS | Encounter Summary ---
Author Organization [email or web address] Address [address] [facility] 7t [place] [address] Care Team Providers Care Grocery Clerk Checking Name Role Phone Rosalba Shin MD Primary Care Provide r Encounter Details Date Type Department Care Team (Late st Contact Info) Description 08/26/2023 Abstract [facility] [address] [place] [address] Rosalba Shin MD [address] [place] [address] Social History Tobacco Use Types Packs/Day Years Used Date Smoking Tobacco: Never Smokeless Tobacco: Never Alcohol Use Standard Drinks/Week Comments Never 0 (1 standard drink = 0.6 oz pur e alcohol) Depression Answer Date Recorded Patient Health Questionnaire-9 Score 7 04/06/2023 Housing Stability Answer Date Recorded What is your housing situation today? I have sailajaderic mujica 08/24/[address] you li ve. Do you have problems with any of the following? None of the above 08/24/2023 Food Insecurity Answer Date Recorded Within the past 12 months, y ou worried that your food would run out before you got money to buy more: Never True 08/24/2023 Within the past 12 months,th e food you bought just didn't last and you didn't have enough money to get more: Never True 07/2023 Transportation Answer Date Recorded In the past 12 months, has l ack of transportation kept you from medical appts, meetings, work or from getting things needed for daily living? No 08/24/2023 Utilities Answer Date Recorded In the past 12 months, has t he electric, gas, oil or water [employer] threatened to shut off services in your home? No 08/24/2023 Depression Answer Date Recorded Patient Health Questionnaire-2 [...] Description 12/06/2024 6:40 PM EST Office Visit [facility] [address] [place] [address] [phone] Hernán Worley MD [address] [place] [address] [phone] Left-sided chest pain (Primary Dx) 12/22/2024 11:30 AM EST Clinical Support [facility] [address] [place] [address] [phone] Jeannette Thomas RN documented as of this encounter Procedures Procedure Name Priority Date/Time Associated Diagnosis Comments COLONOSCOPY Routine 06/01/2018 documented in this encounter Results * Colonoscopy (06/01/2018) Colonoscopy Normal Normal Narrative Aditi Durand - 06/01/2018 Recommended 10 year follow up Historical Provider HEALTH MAINTENANCE Final Result documented in this encounter Visit Diagnoses Not on filedocumented in this encounter Additional Health Concerns Assessment Noted Time PHQ-9 Depression Total Score: 7 04/06/20 23 2:10 PM EDT documented as of this encounter Care Teams Grocery Clerk Checking Relationship Specialty Start Date End Date Rosalba Shin MD [address] [place] [address] [phone] PCP - General Family Medicine 12/26/20 documented as of this encounter
--- OUTSIDE RECORDS SUMMARY | 2024-12-06 18:10 | XMS_ITS | Clinical Summary ---
Author Organization [facility] Address [address] [place] [address] Care Team Providers Care Button Tufting Machine Operator Name Role Phone Unavailable Primary Care Provider Unavailabl e Social History Tobacco Use Types Packs/Day Years Used Date Smoking Tobacco: Never Assessed Sex and Gender Information Value Date Recorded Sex Assigned at Not on file Gender Identity Not on file Sexual Orientation Not on file Plan of Treatment Health Maintenance Due Date Last Done Comments Hepatitis C Virus Screening 1966 HIV Screening 1979 DTaP/Tdap/Td Vaccines (1 - Tdap) 1985 Hepatitis B Vaccines (1 of 3 - 19+ 3-dose series) 1985 Pneumococcal Vaccines 50+ (1 of 1 - PCV) 2016 Zoster (Shingles) Vaccine (1 of 2) 2016 COVID-19 Vaccine ( - 2023-2 5 season) 2024 Pneumococcal Vaccine: Pediat lindy (0-5 Years) and At-Risk Patients (6 to 49 Years) Aged Out No longer eligible b ased on patient's age to complete this topic
[2024-12-06 18:18] LABS: MANUAL DIFF FLAG NO
[2024-12-06 18:34] LABS: Alanine Aminotransferase 23 U/L (0-31); Albumin Level 4.1 g/dL (3.5-5.0); Alkaline Phosphatase 74 U/L (39-117); Anion Gap 11 (12-20); Aspartate Amino Transferase 33 U/L (5-31); Bilirubin Direct 0.2 mg/dL (0.0-0.5); Bilirubin Total 0.6 mg/dL (0.0-1.0); Blood Urea Nitrogen 8 mg/dL (9-16); Calcium 9.6 mg/dL (8.4-10.2); Carbon Dioxide 29 mmol/L (22-29); Chloride 103 mmol/L (96-108); Creatinine Clr Calc Pharmacy 103.6; Estimated Glomerular Filt Rate > 60; Glucose Random 102 mg/dL (60-115); Magnesium 1.7 mg/dL (1.6-2.6); Potassium 3.7 mmol/L (3.3-5.1); Sodium 139 mmol/L (135-145); Total Protein 8.1 g/dL (6.5-8.0)
[2024-12-06 18:41] LABS: Troponin-I High Sensitivity < 2.7 ng/L (<3.5-17.0)
[2024-12-06 18:44] LABS: Basophils Percent Auto 0.4 % (0-2); Eosinophils Absolute Auto 0.2 X10*3/uL (0.0-0.4); Eosinophils Percent Auto 2.5 % (0-4); Hematocrit 40.3 % (37.0-47.0); Hemoglobin 13.8 g/dl (12.0-16.0); Imm Gran Abs Auto 0.04 X10*3/uL (0.00-0.03); Imm Gran Pct Auto 0.6 % (0.0-0.4); Lymphocytes Absolute Auto 2.5 X10*3/uL (1.2-4.9); Lymphocytes Percent Auto 36.3 % (20-40); Mean Corpuscular HGB Conc 34.2 g/dl (31.0-35.0); Mean Corpuscular Hemoglobin 29.4 pg (27.0-33.0); Mean Corpuscular Volume 85.9 fL (80.0-98.0); Mean Platelet Volume 10.5 fL (9.4-12.3); Monocytes Absolute Auto 0.7 X10*3/uL (0.1-1.2); Monocytes Percent Auto 10.1 % (2-11); Neutrophils Absolute Auto 3.5 x10*3/uL (2.0-8.3); Neutrophils Percent Auto 50.1 % (45-73); Platelet Count 267 X10*3/uL (160-400); Red Blood Count 4.69 X10*6/uL (4.20-5.50); Red Cell Distribution Width 12.9 % (11.0-16.0); White Blood Count 6.9 X10*3/uL (4.8-10.8)
[2024-12-06 18:56] LABS: Influenza A PCR NEGATIVE (Negative); Influenza B PCR NEGATIVE (Negative); Resp Syncy Virus RNA Qual PCR NEGATIVE (Negative); SARS COV2 PCR INHOUSE NEGATIVE (Negative)
[2024-12-06 22:38] VITALS: BP 121/76; PULSE 89; RESP 18; TEMP 37.1; O2SAT 97
[2024-12-07 03:37] VITALS: BP 127/69; PULSE 87; RESP 20; TEMP 36.4; O2SAT 98
[2024-12-07 03:45] VITALS: BP 127/69; PULSE 87; RESP 20; TEMP 36.4; O2SAT 98
== END 2024-12-07 03:45 | disposition home or self-care (01) ==
PROVIDERS: Physician Assistant; Emergency Provider Emergency Medicine; PCP Internal Medicine
DX: R07.89 Other chest pain (principal); E11.9 Type 2 diabetes mellitus without complications; Z79.899 Other long term (current) drug therapy; Z98.84 Bariatric surgery status; Z03.818 Encounter for observation for suspected exposure to other biological agents ruled out
CPT/HCPCS: 0241U; 36415; 71046; 80048; 80076; 83735; 84484; 85025; 93005; 99283; 99285

== ENCOUNTER → 2024-12-06 17:39 | Outpatient (BNV) | payer MEDICAID, SELFPAY | PROVIDERS: Emergency Provider Emergency Medicine; PCP Internal Medicine; Visit Provider Internal Medicine Cardiovascular Disease | DX: R07.9 Chest pain, unspecified (principal) | CPT/HCPCS: 93010 ==

== ENCOUNTER → 2024-12-06 18:05 | Outpatient (BNV) | payer MEDICAID, SELFPAY | PROVIDERS: PCP Internal Medicine; Visit Provider Student in an Organized Health Care Education/Training Program | DX: J98.11 Atelectasis (principal); R07.2 Precordial pain | CPT/HCPCS: 71046 ==

== ENCOUNTER 2024-12-15 14:00 | Outpatient (AMB) | payer MEDICAID, SELFPAY ==
[2024-12-15 14:12] VITALS: BP 120/78; PULSE 105; O2SAT 98; BMI 33.4
--- NOTE | 2024-12-15 14:12 | MHC.OFFVIS ---
Vital Signs 12/15/24 14:12 Height 5 ft 5 in Weight 200 lb 9.93 oz BMI 33.4 BP 120/78 Blood Pressure Location Lt brachial Position Sitting Pulse 105 H Pulse Source Pulse Oximeter Pulse Oximetry (%) 98 Oxygen Delivery Method Room Air Intake Visit Reasons: asthma Bead Machine Operator Required: Yes Bead Machine Operator Services: Bead Machine Operator Present Bead Machine Operator Name: # [id number] Information Interpreted: non-clinical & clinical Allergies No Known Allergies [No Known Allergies*] Allergy (Verified 12/15/24 14:13) Medication List - Last Reconciled 12/15/24 by Vivien Goodson, CRACKER OFF acetaminophen 500 mg PO Q6H PRN albuterol sulfate 90 mcg/actuation (Ventolin HFA) 2 puffs inhalation Q6H PRN aspirin 81 mg PO DAILY benzonatate 200 mg PO BID PRN cholecalciferol (vitamin D3) (Vitamin D3) 50 mcg PO QAM cyclobenzaprine 5 mg PO Q8H PRN dextran 70-hypromellose 0.1-0.3 % (Lubricating Tears) 1 drp ophthalmic (eye) TID PRN diclofenac sodium 1% 2 grams topical QID doxycycline hyclate 100 mg PO BID 7 days ferrous sulfate (FeroSul) 325 mg PO BID hydrochlorothiazide 25 mg PO DAILY levothyroxine 200 mcg PO DAILY levothyroxine 25 mcg PO QAM lidocaine 5% 0 patches topical lisinopril 5 mg PO QAM loratadine 10 mg PO DAILY PRN paroxetine HCl 20 mg PO DAILY prednisolone acetate 1% 1 drp ophthalmic-Right QID rosuvastatin 10 mg PO BEDTIME sennosides (senna) 8.6 mg PO PRN sodium chloride 0.65% (Deep Sea Nasal) 2 sprays intranasal tramadol 50 mg PO Q6H PRN triamcinolone acetonide 0.1% appl topical triamcinolone acetonide 0.1% topical BID venlafaxine ER 37.5 mg PO QAM zolpidem 10 mg PO BEDTIME PRN HPI HPI asthma: Details: 59-year-old lady, nonsmoker, underlying history of asthma referred further evaluation. Patient states that she has been using Asmanex and albuterol MDI with suboptimal control of his symptoms. She does endorse intermittent wheezing. Patient also complains of seasonal allergies. She does not have recent allergy testing. Patient denies family history of lung disease. She denies exposure to industrial dusts. [facility] Medical History (Updated 12/15/24 @ 15:47 by Sebastian Kemp MD) Breast pain Fibromyalgia Anxiety and depression Bilateral carpal tunnel syndrome Type 2 diabetes mellitus Essential hypertension Sjogren's syndrome Rheumatoid arthritis involving multiple sites with positive rheumatoid factor Acquired hypothyroidism Cervical radiculopathy Lumbar radiculopathy Asthma Surgical History H/O gastric bypass Hx of cataract extraction No history of previous surgery Family History Mother Arthritis Father No problems noted. Other Medical history unknown Social History Household Members: None Alcohol intake: never Patient Tobacco Use Status: Never used Tobacco Current occupational status: disabled Review of Systems Const Denies daytime sleepiness, Denies excessive sweating, Denies fatigue, Denies fever(s), Denies lethargy, Denies malaise, Denies night sweats, Denies snoring and Denies weight loss Eyes Denies blurry vision and Denies itchy eyes ENT Denies nasal congestion, Denies post nasal drip, Denies sinus pain, Denies sinus pressure and Denies other ( Thrush) Card Denies chest pain, Denies pedal edema, Denies dyspnea, Denies orthopnea and Denies paroxysmal nocturnal dyspnea Resp Denies cough, Denies hemoptysis, Denies excessive phlegm production, Denies dyspnea, Denies snoring and Denies wheezing GI Denies abdominal pain and Denies heartburn Musc Denies myalgias, Denies arthralgias and Denies joint swelling Skin/Breast Denies rash Neuro Denies memory loss and Denies seizure-like activity Psych Denies abnormal sleep pattern, Denies anxiety and Denies memory loss Endo Denies excessive sweating, Denies fatigue and Denies heat intolerance Jose Guadalupe/Lymph Denies easy bruising Aller/Immun Denies itchy eyes, Denies seasonal rhinorrhea and Denies wheezing Physical Exam Vital Signs: Last Vital Signs Pulse 105 H 12/15/24 14:12 BP 120/78 12/15/24 14:12 Pulse Ox 98 12/15/24 14:12 Oxygen Delivery Method Room Air 01/30/25 14:12 BMI result Body Mass Index 33.4 Const General: no acute distress and alert Nutritional Appearance: obese Orientation/consciousness: Other orientation findings ( oriented) HEENT Head: Yes atraumatic Eyes General: appearance normal, both eyes and all related structures Sclerae: sclerae normal EOM: EOMs intact bilaterally Neck Neck: Yes supple Lymphatic: no lymphadenopathy noted Resp Effort & Inspection: normal respiratory effort and no use of accessory muscles Auscultation: clear to auscultation bilaterally Cardio Rate: regular rate Rhythm: regular rhythm Heart sounds: no gallops, no murmurs and no rubs Skin General skin exam: other ( warm) Extrem General: No clubbing, No cyanosis and No edema Assessment & Plan Assessment & Plan (1) Asthma: Code(s): J45.909 - Unspecified asthma, uncomplicated Category: Medical Plan: Suboptimally controlled on Asmanex, will change to Breo. Will obtain full PFT. Continue albuterol MDI. (2) Environmental allergies: Code(s): Z91.09 - Other allergy status, other than to drugs and biological substances Category: Medical Plan: Will obtain RAST panel and IgE level for further evaluation. Orders: Orders Resp Allergy Profile Region I Today Z91.09 - Other allergy status, other than to drugs and biological substances Medications: New fluticasone furoate-vilanterol 200-25 mcg/dose (Breo Ellipta) 1 inh inhalation DAILY 1 ea 6RF Coding Level of Care Code New Pt Level 4 (35079) Diagnoses Asthma J45.909 Environmental allergies Z91.09
--- OUTSIDE RECORDS SUMMARY | 2024-12-15 17:53 | XMS_ITS | Encounter Summary ---
Author Organization [employer] Address [address] [facility] 7t [place] [address] Care Team Providers Care Hat Steamer Name Role Phone Rosalba Shin MD Primary Care Provide r Reason for Visit * Reason Comments Med Refill Encounter Details Date Type Department Care Team ([facility] st Contact Info) Description 10/22/2023 Refill [facility] [address] [place], [place] [phone] Maria L Navarro MD [address] [place], [place] [phone] Chronic low back pain, unspecified back pain [...] Description 12/22/2024 11:30 AM EST Clinical Support [facility] [address] [place] [address] Jeannette Thomas RN documented as of this encounter Visit Diagnoses Diagnosis Chronic low back pain, unspecified back pain laterality, unspecified whether sciatica present documented in this encounter Additional Health Concerns Assessment Noted Time PHQ-9 Depression Total Score: 7 04/06/20 23 2:10 PM EDT documented as of this encounter Care Teams Hat Steamer Relationship Specialty Start Date End Date Rosalba Shin MD [address] [place] [address] PCP - General Family Medicine 12/26/20 documented as of this encounter
--- OUTSIDE RECORDS SUMMARY | 2024-12-15 17:53 | XMS_ITS | Encounter Summary ---
Author Organization [employer] Address [address] [facility] 7t [place] [address] Care Team Providers Care File Conversion Operator Name Role Phone Rosalba Shin MD Primary Care Provide r Reason for Visit * Reason Comments Med Refill Encounter Details Date Type Department Care Team ([facility] st Contact Info) Description 12/07/2024 Refill [facility] [address] [place], [place] [phone] Rosalba Shin MD [address] [place], [place] [phone] Moderate persistent asthma, unspecified whether complicated Social History Tobacco Use Types Packs/Day Years [...] Description 12/22/2024 11:30 AM EST Clinical Support [facility] [address] [place] [address] Jeannette Thomas, KARLENE documented as of this encounter Visit Diagnoses Diagnosis Moderate persistent asthma, unspecified whether complicated documented in this encounter Additional Health Concerns Assessment Noted Time PHQ-9 Depression Total Score: 0 08/12/20 24 11:42 AM EDT documented as of this encounter Care Teams File Conversion Operator Relationship Specialty Start Date End Date Rosalba Shin MD [address] [place] [address] PCP - General Family Medicine 12/26/20 documented as of this encounter
--- OUTSIDE RECORDS SUMMARY | 2024-12-15 17:53 | XMS_ITS | Encounter Summary ---
Author Organization [employer] Address [address] [facility] 7[address] [place] [address] Care Team Providers Care Accounts Payable Clerk Name Role Phone Rosalba Shin MD Primary Care Provide r Encounter Details Date Type Department Care Team (Late st Contact Info) Description 12/06/2024 Orders Only GENERIC EXTERNAL DATA DEPARTMENT Provider, Generic External Data Social History Tobacco Use Types Packs/Day Years [...] Description 12/22/2024 11:30 AM EST Clinical Support [address] [id number] Jeannette Thomas RN documented as of this encounter Procedures Procedure Name Priority Date/Time Associated Diagnosis Comments XR CHEST 2 VIEWS Routine 12/06/2024 7:13 PM EST HIGH SENSITIVITY TROPONIN I Routine 12/06/2024 6:14 PM EST SARS COV2/INFLUENZA A/B AND RSV RNA QL NAAT Routine 12/06/2024 6:14 PM EST CBC WITH AUTO DIFFERENTIAL Routine 12/06/2024 6:14 PM EST MAGNESIUM Routine 12/06/2024 6:14 PM EST HEPATIC FUNCTION PANEL Routine 12/06/2024 6:14 PM EST BASIC METABOLIC PANEL Routine 12/06/2024 6:14 PM EST documented in this encounter Results * XR Chest 2 Views (12/06/2024 7:13 PM EST) Anatomical Region Laterality Modality Chest Radiographic Sheila ging 12/06/2024 7:13 PM EST Narrative 12/06/2024 7:15 PM EST ? [facility] [facility] ?[address] ?[place] [address] ?XRay Report ? Signed ? Patient: Gutierrez,Kerline ?MR#: [id number] ? : 1965 ?Acct:[id number] ? Age/Sex: 59 / F ?ADM Date: 12/06/24 ? Loc: HO.ED ? Attending Dr: ? Ordering Physician: Madhavi Carvalho ?? Date of Service: 12/06/24 ?? Procedure(s): XR chest 2V ?? Accession Number(s): [id number] ? cc: Rosalba Shin MD; Madhavi Carvalho ? CLINICAL HISTORY: left sided chest pain ? 2 view chest x-ray ? Comparison: CR/SR - XR CHEST 2V - 06/26/24 14:46 EDT ? Findings: ?? No consolidation or effusion. Left retrocardiac/ basilar subsegmental ?? atelectasis. ?? Normal size heart. ?? No acute fracture. ? IMPRESSION: ?? 1. No acute findings. ? This document has been electronically signed by: Irwin Dubose MD on ?? 12/06/2024 19:13:50 ? Dictated By: ?Irwin Dubose MD ? Signed By: ?<Electronically signed by Irwin Dubose MD in OV> ?12/06/24 1914 ? DD/ 12 ? TD/TT: 12/06/241912 ? [employer]: ? Procedure Note Flavia, Image - 12/06/2024 [place] [address] XRay Report Signed Patient: Diana Gutierrez#: [id number] : 1965Acct:[id number] Age/Sex: 59 / FADM Date: 12/06/24 Loc: HO.ED Attending Dr: Ordering Physician: Madhavi Carvalho Date of Service: 12/06/24 Procedure(s): XR chest 2V Accession Number(s): [id number] cc: Rosalba Shin MD; Madhavi Carvalho CLINICAL HISTORY: left sided chest pain 2 view chest x-ray Comparison: CR/SR - XR CHEST 2V - 06/26/24 14:46 EDT Findings: No consolidation or effusion. Left retrocardiac/ basilar subsegmental atelectasis. Normal size heart. No acute fracture. IMPRESSION: 1. No acute findings. This document has been electronically signed by: Irwin Dubose MD on 12/06/2024 19:13:50 Dictated By: Irwin Dubose MD Signed By: <Electronically signed by Irwin Dubose MD in OV> 12/06/241913 DD/ 12 TD/TT: 12/06/241912 Skip [employer]: [facility] External Provider IMG XR PROCEDURES Final Result * SARS-CoV-2 RNA, Influenza A/B, and RSV RNA, Ql NAAT (12/06/2024 6:14 PM EST) Pathologist [facility] Influenza A PCR NEGATIVE Negative [facility] Influenza B PCR NEGATIVE Negative [facility] Resp Syncy Virus RNA Qual PCR NEGATIVE Negative [facility] SARS COV2 PCR NEGATIVE Negative [facility] Comment:All test results mus t be correlated with clinical findings.Negative results do not preclude SARS-CoV2, influenza Avirus, influenza B virus and/or RSV infectionand should not be used as the sole basis for treatment orother patient management decisions. Negative results must becombined with clinical observations, patient history, andepidemiological information.This test has not been evaluated for monitoring treatment ofinfection.This test has been authorized by the FDA under an EmergencyUse Authorization (EUA) for use by authorized laboratories.Testing performed on the [employer] GeneXpert utilizingreal-time RT-PCR.All SARS CoV2 and positive influenza A/B results arereported to [facility]. 12/06/2024 6:14 PM EST 12/06/2024 6:17 PM EST Generic External Data Provider LAB MICROBIOLOGY - GENERAL ORDERABLES Final Result [facility] [address] [place] [phone] * (ABNORMAL) CBC auto differential (12/06/2024 6:14 PM EST) Pathologist [facility] White Blood Count 6.9 4.8 - 10.8 X10*3/uL [facility] Red Blood Count 4.69 4.20 - 5.50 X10*6/uL [facility] Hemoglobin 13.8 12.0 - 16.0 g/dl [facility] Hematocrit 40.3 37.0 - 47.0 % [facility] Mean Corpuscular Volume 85.9 80.0 - 98.0 fL [facility] Mean Corpuscular Hemoglobin 29.4 27.0 - 33.0 pg [facility] Mean Corpuscular HGB Conc 34.2 31.0 - 35.0 g/dl [facility] Red Cell Distribution Width 12.9 11.0 - 16.0 % [facility] Platelet Count 267 160 - 400 X10*3/uL [facility] Mean Platelet Volume 10.5 9.4 - 12.3 fL [facility] Neutrophils Percent Auto 50.1 45 - 73 % [facility] Imm Gran Pct Auto 0.6(H) 0.0 - 0.4 % [facility] Lymphocytes Percent Auto 36.3 20 - 40 % [facility] Monocytes Percent Auto 10.1 2 - 11 % [facility] Eosinophils Percent Auto 2.5 0 - 4 % [facility] Basophils Percent Auto 0.4 0 - 2 % [facility] NRBC Pct Auto 0.0 0.0 - 0.2 /100WBC [facility] Neutrophils Absolute Auto 3.5 2.0 - 8.3 x10*3/uL [facility] Imm Gran Abs Auto 0.04(H) 0.00 - 0.03 X10*3/uL [facility] Lymphocytes Absolute Auto 2.5 1.2 - 4.9 X10*3/uL [facility] Monocytes Absolute Auto 0.7 0.1 - 1.2 X10*3/uL [facility] Eosinophils Absolute Auto 0.2 0.0 - 0.4 X10*3/uL [facility] Basophils Absolute Auto 0.0 0.0 - 0.2 X10*3/uL [facility] NRBC Abs Auto 0.000 0.0 - 0.012 X10*3/uL [facility] 12/06/2024 6:14 PM EST 12/06/2024 6:17 PM EST us Generic External Data Provider LAB BLOOD ORDERAB LES Final Result Performing Organization Address [facility] Co de Phone Number [facility] [address] [place] [phone] * High Sensitivity Troponin I (12/06/2024 6:14 PM EST) Pathologist [facility] TROPONIN I HIGH SENSITIVITY <2.7 <3.5 - 17.0 ng/L [facility] Comment:The Kelly high sens itivity Troponin-I results should beused in conjunction with other diagnostic information suchas ECG, clinical observations and information, and patientsymptoms to aid in the diagnosis of [place]. 12/06/2024 6:14 PM EST 12/06/2024 6:17 PM EST Generic External Data Provider LAB BLOOD ORDERAB LES Final Result Performing Organization Address [facility] Phone [facility] [address] [place] [phone] * Magnesium (12/06/2024 6:14 PM EST) Pathologist [facility] Magnesium 1.7 1.6 - 2.6 mg/dL [facility] 12/06/2024 6:14 PM EST 12/06/2024 6:17 PM EST Generic External Data Provider LAB BLOOD ORDERAB LES Final Result Performing Organization Address [facility] Phone Number [facility] [address] [place] [phone] * (ABNORMAL) Basic Metabolic Panel (12/06/2024 6:14 PM EST) Sodium 139 135 - 145 mmol/L [facility] Potassium 3.7 3.3 - 5.1 mmol/L [facility] Chloride 103 96 - 108 mmol/L [facility] Carbon Dioxide 29 22 - 29 mmol/L [facility] Anion Gap 11(L) 12 - 20 [facility] Urea Nitrogen (BUN) 8(L) 9 - 16 mg/dL [facility] Creatinine, Serum 0.66 0.5 - 1.4 mg/dL [facility] Creatinine Clr Calc Pharmacy 103.6 [facility] Comment:Provided height and weight: 165.1 cm,91.2 kg.eGFR (calculated from the MDRD study equation) and eCrCl(calculated from the Cockcroft-Gault equation) are based ondifferent parameters and may not yield comparable results.If eCrCl result is absurd, please check patient'sheight/weight. Estimated Glomerular Filt Rate >60 [facility] Comment:Chronic Kidney Disea se: Estimated GFR < 60 mL/min/1.75q6Pdssmm Kidney Disease: Estimated GFR < 15 mL/min/1.73m2 Glucose 102 60 - 115 mg/dL [facility] Calcium 9.6 8.4 - 10.2 mg/dL [facility] 12/06/2024 6:14 PM EST 12/06/2024 6:17 PM EST us Generic External Data Provider LAB BLOOD ORDERAB LES Final Result [facility] [address] [place] [phone] * (ABNORMAL) Hepatic Function Panel (12/06/2024 6:14 PM EST) Bilirubin, Total 0.6 0.0 - 1.0 mg/dL [facility] Bilirubin, Direct 0.2 0.0 - 0.5 mg/dL [facility] Aspartate Amino Transferase 33(H) 5 - 31 U/L [facility] Alanine Aminotransferase 23 0 - 31 U/L [facility] Total Protein 8.1(H) 6.5 - 8.0 g/dL [facility] Albumin Level 4.1 3.5 - 5.0 g/dL [facility] Alkaline Phosphatase 74 39 - 117 U/L [facility] 12/06/2024 6:14 PM EST 12/06/2024 6:17 PM EST us Generic External Data Provider LAB BLOOD ORDERAB LES Final Result Performing Organization Address City/State/[facility] Co de Phone Number [facility] [address] [place] [phone] documented in this encounter Visit Diagnoses Not on filedocumented in this encounter Additional Health Concerns Assessment Noted Time PHQ-9 Depression Total Score: 0 08/12/20 24 11:42 AM EDT documented as of this encounter Care Teams Accounts Payable Clerk Relationship Specialty Start Date End Date Rosalba Shin MD [address] [place] [phone] PCP - General Family Medicine 12/26/20 documented as of this encounter
--- OUTSIDE RECORDS SUMMARY | 2024-12-15 17:54 | XMS_ITS | Encounter Summary ---
Author Organization [email or web address] Address [address] [facility] [address] [place] [address] Care Team Providers [facility] Name Role Phone Rosalba Shin MD Primary Care Provide r Reason for Visit * Reason Onset Date Comments [facility] [employer] [facility] appt today 12/06/2024 Encounter Details Date Type Department Care Team (Late st Contact Info) Description 12/06/2024 Telephone [facility] [address] [place] [address] Jeannette Thomas RN [facility] [facility] appt today Social History Tobacco Use [...] 12:50 PM EST Pt was [facility] [employer] [facility] appt today. TC via via [place] speaking staff member pauline Fink stated she forgot. Appt rescheduled for 12/22/23 @11:30am documented in this encounter Plan of Treatment Upcoming Encounters Date Type Department Care Team (Late st Contact Info) Description 12/22/2024 11:30 AM EST Clinical Support [facility] [address] [place] [address] Jeannette Thomas, RN documented as of this encounter Visit Diagnoses Not on filedocumented in this encounter Additional Health Concerns Assessment Noted Time PHQ-9 Depression Total Score: 0 08/12/20 24 11:42 AM EDT documented as of this encounter Care Teams [facility] Relationship Specialty Start Date End Date Rosalba Shin MD [address] [place] [address] PCP - General Family Medicine 12/26/20 documented as of this encounter
--- OUTSIDE RECORDS SUMMARY | 2024-12-15 17:54 | XMS_ITS | Clinical Summary ---
Author Organization [employer] Address [address] [facility] [address] [place] [address] Care Team Providers Care Progressive Die Maker Name Role Phone Rosalba Shin MD Primary [...] buttocks. 03/16/20 20 Active Deep Sea Nasal [place] 0.65 % nasal sprayIndication s:Viral pharyngitis SPRAY [...] complication, without long-term current use of insulin ([facility]) 1 each 2 times daily. 1 kit 09/07/20 Active Lancets miscIndications :Type 2 diabetes mellitus without complication, without long-term current use of insulin ([facility]) 1 each 2 times daily. 100 each [...] complication, without long-term current use of insulin ([facility]) USE DIRECTED TO TEST BLOOD SUGAR TWICE [...] complication, without long-term current use of insulin ([facility]) USE TO TEST BLOOD SUGAR TWICE DAILY 100 each 1 07/21/20 24 Active Dextromethorpha n-guaiFENesin (Mucinex DM) 30-600 MG tablet sustained-relea se 12 hour TAKE 1 TABLET BY MOUTH THREE TIMES DAILY 28 tablet 07/26/20 24 Active rosuvastatin (Crestor) 20 MG tabletIndicatio ns:Type 2 diabetes mellitus without complication, without long-term current use of insulin (CMS/HCC) Take 1 tablet (20 mg) by mouth [...] 20 doses. 20 tablet 12/02/19 25 Active traMADol (Ultram) 50 MG tabletIndicatio ns:Fibromyalgia [...] complication, without long-term current use of insulin ([facility]) 1 each 2 times daily. 100 each 11 12/02/19 25 Active Fluocinolone Acetonide Scalp 0.01 % oilIndications: Folliculitis APPLY TO AFFECTED AREA(S) 3 TIMES PER WEEK AT NIGHT WITH COVER ON HEAD, ONCE SYMPTOMS IMPROVE USE 3 TIMES PER MONTH 118.28 mL 12/02/19 25 Active cyclobenzaprine (Flexeril) 5 MG tabletIndicatio ns:Pain Take 1 tablet (5 mg) by mouth every 8 (eight) hours. 90 tablet 12/02/19 25 Active lidocaine (Lidoderm) 5 % patchIndication s:Chronic low back pain, unspecified back pain laterality, unspecified whether sciatica present APPLY 1 PATCH TOPICALLY TO SKIN, LEAVE ON FOR 12 HOURS AND OFF FOR 12 HOURS DIRECTED 30 patch 1 12/02/19 25 Active betamethasone, augmented, (Diprolene) 0.05 [...] MOUTH FOUR TIMES DAILY NEEDED 18 g 12/02/19 25 Active Asmanex HFA 200 MCG/ACT aerosolIndicati ons:Moderate persistent asthma, unspecified whether complicated INHALE 1 PUFF BY MOUTH EVERY TWELVE HOURS. RINSE MOUTH AFTER USING. 13 g 2 12/07/19 25 Active TRUEplus Lancets 33G miscIndications :Type 2 diabetes mellitus without complication, without long-term current use of insulin (CMS/HCC) 1 each 2 times daily. 100 each [...] FOR 12 HOURS DIRECTED 30 patch 1 08/12/202024 Discontinued(R eorder (will not trigger notification to Pharmacy)) Diclofenac Sodium 1 % gelIndications: Chronic low back pain, unspecified back pain laterality, unspecified whether sciatica present APPLY 2 GRAMS TOPICALLY TO AFFECTED AREA(S) FOUR TIMES DAILY 100 g 1 08/12/20 24 2024 Discontinued(R eorder (will not trigger notification to Pharmacy)) Mometasone Furoate (Asmanex HFA) 200 MCG/ACT aerosolIndicati ons:Moderate persistent asthma, unspecified whether complicated Inhale 200 mcg every 12 (twelve) hours. 13 g 2 08/12/20 24 2024 Discontinued traMADol (Ultram) 50 MG tabletIndicatio ns:Fibromyalgia Take 1 tablet (50 mg) by mouth every 8 (eight) hours if needed for severe pain for up to 28 days. Do not start before October 12, 2024. 84 tablet 10/12/20 24 2024 Discontinued albuterol (Ventolin HFA) 108 (90 Base) MCG/ACT inhalerIndicati ons:Mild intermittent asthma with exacerbation INHALE 2 PUFFS BY MOUTH FOUR TIMES DAILY NEEDED 18 g 1 10/10/20 24 2024 Discontinued(R eorder (will not trigger notification to Pharmacy)) zolpidem (Ambien) 10 MG tabletIndicatio ns:Primary insomnia TAKE 1 TABLET BY MOUTH EVERY DAY AT BEDTIME NEEDED FOR SLEEP 30 tablet 10/10/20 24 2024 Discontinued acetaminophen (Tylenol 8 Hour) 650 MG [...] 5 days. 10 tablet 11/14/20 24 2024 amoxicillin (Amoxil) 500 MG capsule Take 1 capsule (500 mg) by mouth every 8 (eight) hours for 7 days. 21 capsule 12/02/19 25 2024 Active Problems Problem Noted Date Diagnosed [...] Encounters Date Type Department Care Team Description 12/07/2024 Refill [facility] [address] [place] [phone] Rosalba Shin MD Moderate persistent asthma, unspecified whether complicated 12/06/2024 6:40 PM EST Office Visit [facility] [address] [place] [phone] Hernán Worley MD Left-sided chest pain (Primary Dx) 12/06/2024 Orders Only GENERIC EXTERNAL DATA DEPARTMENT Provider, Generic External Data 12/06/2024 Telephone [facility] [address] [place] [phone] Jeannette Thomas, RN NCNS for [employer] appt today 12/06/2024 Telephone [facility] [address] [place] [phone] Jeannette Thomas, KARLENE Recommend [employer] Tier 2 12/02/2024 1:30 PM EST Office Visit [facility] [address] [place] [address] Fly Salgado DDS Dental abscess (Primary Dx) 12/02/2024 Refill [facility] [address] [place] [phone] Gino Browning MD 12/02/2024 Refill [facility] [address] [place] [address] Alban Diaz MD Folliculitis 12/02/2024 Refill [facility] [address] [place] [phone] Ofelia Wright ANP Type 2 diabetes mellitus without complication, without long-term current use of insulin ([facility]) 12/02/2024 Refill [facility] [address] [place] [address] Maria L Navarro MD Hypothyroidism, unspecified type; Iron deficiency anemia, unspecified iron deficiency anemia type; Type 2 diabetes mellitus without complication, without long-term current use of insulin ([facility]/HCC); Folliculitis; Pain; Chronic low back pain, unspecified back pain laterality, unspecified whether sciatica present; Rash; Mild intermittent asthma with exacerbation 12/02/2024 Refill [facility] [address] [place] [address] Rosalba Shin MD Fibromyalgia; Primary insomnia; Chronic low back pain, unspecified back pain laterality, unspecified whether sciatica present; Pain; Rash; Mild intermittent asthma with exacerbation 11/25/2024 1:00 PM EST Office Visit [facility] [address] [place] [phone] Aidee Miller, RUDDY Type 2 diabetes mellitus without ophthalmic manifestations ([facility]/HCC) (Primary Dx); 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; Lamellar macular hole of right eye; Dry eyes, bilateral; Presbyopia 11/25/2024 Travel 11/14/2024 3:40 PM EST Office Visit [facility] [address] [place] [phone] Gino Browning MD Subacute cough (Primary Dx); Exacerbation of asthma, unspecified asthma severity, unspecified whether persistent 11/14/2024 Travel 11/08/2024 11:00 AM EST Office Visit [facility] [address] [place] [phone] Rosalba Shin MD Moderate persistent asthma, unspecified whether complicated (Primary Dx); Type 2 diabetes mellitus without complication, without long-term current use of insulin ([facility]); Fibromyalgia; Rash; Dry eye 11/08/2024 Travel 11/02/2024 Travel 10/07/2024 Refill [facility] [address] [place] [address] Rosalba Shin MD Mild intermittent asthma with exacerbation; Primary insomnia 10/06/2024 10:00 AM EST Clinical Support [facility] [address] [place] [address] [phone] Jeannette Thomas RN Chronic low back pain, unspecified back pain laterality, unspecified whether sciatica present (Primary Dx) 10/06/2024 Refill [facility] [address] [place] [address] Jeannette Thomas RN Fibromyalgia 10/06/2024 Travel 09/27/2024 Patient Outreach [facility] [address] [place] [address] Rosalba Shin MD Pre-visit Planning ([facility] screening completed on 06/20/2024) from Last 3 Months Immunizations Name Administration [...] free 08/12/2024 Pfizer Covid-19 Vaccine 12+ 08/12/2024, 3 Pfizer Covid-19 Vaccine 12+ elmo-sucrose (Rodriguez Cap) [...] Description 12/22/2024 11:30 AM EST Clinical Support [address] [address] Jeannette Thomas, RN Health Maintenance Due Date [...] 07/13/2024, 08/11/2023, 10/18/2020 Lipid Panel 07/13/2025 07/13/2024, 03/17, 07/16/2021, Additional history exists Alcohol/Substance Use Screening 08/12/2025 08/12/2024 Depression Screening 08/12/2025 08/12/2024, 08/12/20 24 Tobacco Screening 12/02/2025 12/02/2024 Eye Exam 11/25/2026 [...] Zoster Vaccines Completed 05/26/2022, 09/18/2020 Pneumococcal Vaccine: 50+ Years Completed 02/09/2024, 04/04/2009, 10/12/2001 COVID-19 Vaccine Completed [...] 2 VIEWS Routine 12/06/2024 7:13 PM EST CBC WITH AUTO DIFFERENTIAL Routine 12/06/2024 6:14 PM EST HIGH SENSITIVITY TROPONIN I Routine 12/06/2024 6:14 PM EST MAGNESIUM Routine 12/06/2024 6:14 PM EST BASIC METABOLIC PANEL Routine 12/06/2024 6:14 PM EST HEPATIC FUNCTION PANEL Routine 12/06/2024 6:14 PM EST SARS COV2/INFLUENZA A/B AND RSV RNA QL NAAT Routine 12/06/2024 6:14 PM EST ECG 12-LEAD Routine 12/06/2024 5:37 PM EST [...] Lamellar macular hole of right eye POC GOEL ID NOW STREP A Routine [...] complication, without long-term current use of insulin ([facility]) POCT JUVE-14 URINE DRUG SCREEN Routine 10/06/2024 10:16 AM EST Chronic low back pain, unspecified back pain laterality, unspecified whether sciatica present LIPID PANEL WITH REFLEX TO DIRECT LDL Routine 07/13/2024 3:15 PM EDT Type 2 diabetes mellitus without complication, without long-term current use of insulin ([facility]) Essential hypertension ALBUMIN, RANDOM URINE W/CREATININE Routine 07/13/2024 12:00 AM EDT Type 2 diabetes mellitus without complication, without long-term current use of insulin ([facility]/HCC) POCT GLYCATED HEMOGLOBIN, TOTAL Routine 07/04/2024 1:36 PM EDT Type 2 diabetes mellitus without complication, without long-term current use of insulin (CMS/HCC) DIAGNOSTIC - DIAGNOSTIC IMAGING - INTRAORAL - [...] Recently Relevant to Health Maintenance Results * XR Chest 2 Views (12/06/2024 7:13 PM EST) Anatomical Region Laterality Modality Chest Radiographic Sheila ging 12/06/2024 7:13 PM EST Narrative 12/06/2024 7:15 PM EST ? [facility] ?[address] ?[place] [address] ?XRay Report ? Signed ? Patient: Gutierrez,Kerline ?MR#: [id number] ? : 1965 ?Acct:[id number] ? Age/Sex: 59 / F ?ADM Date: 01/21/25 ? Loc: HO.ED ? Attending Dr: ? Ordering Physician: Madhavi Carvalho ?? Date of Service: 12/06/24 ?? Procedure(s): XR chest 2V ?? Accession Number(s): [id number] ? cc: Rosalba Shin MD; Madhavi Carvalho [...] ? DD/ 12 ? TD/TT: 12/06/241912 ? Hydraulic Chair Assembler: ? Procedure Note Later, Image - 12/06/2024 [place] [address] XRay Report Signed Patient: Diana Gutierrez#: [id number] : 1965Acct:[id number] Age/Sex: 59 / FADM Date: 12/06/24 Loc: HO.ED Attending Dr: Ordering Physician: Madhavi Carvalho Date of Service: 12/06/24 Procedure(s): XR chest 2V Accession Number(s): [id number] cc: Rosalba Shin MD; Madhavi Carvalho CLINICAL [...] in OV> 12/06/241913 DD/ 12 TD/TT: 12/06/241912 Hydraulic Chair Assembler: [facility] External Provider IMG XR PROCEDURES Final Result * High Sensitivity Troponin I (12/06/2024 6:14 PM EST) Pathologist [facility] TROPONIN I HIGH SENSITIVITY <2.7 <3.5 - 17.0 ng/L [facility] Comment:The Goel high sens itivity Troponin-I results should beused in conjunction with other diagnostic information suchas ECG, clinical observations and information, and patientsymptoms to aid in the diagnosis of ID. 12/06/2024 6:14 PM EST 12/06/2024 6:17 PM EST Generic External Data Provider LAB BLOOD ORDERAB LES Final Result Performing Organization Address [facility] Co de Phone Number [facility] [address] [place] [phone] * SARS-CoV-2 RNA, Influenza A/B, and RSV RNA, Ql NAAT (12/06/2024 6:14 PM EST) [facility] Influenza A PCR NEGATIVE Negative [facility] Influenza B PCR NEGATIVE Negative [facility] Resp Syncy Virus RNA Qual PCR NEGATIVE Negative [facility] SARS COV2 PCR NEGATIVE Negative [facility] Comment:All test results mus t be [...] use by authorized laboratories.Testing performed on the [employer] GeneXpert utilizingreal-time RT-PCR.All SARS CoV2 and positive influenza A/B results arereported to [facility]. 12/06/2024 6:14 PM EST 12/06/2024 6:17 PM EST us Generic External Data Provider LAB MICROBIOLOGY - GENERAL ORDERABLES Final Result Performing Organization Address City/[facility]/ZIP Co de Phone Number [facility] [address] [place], [place] [phone] * (ABNORMAL) CBC auto differential (12/06/2024 6:14 PM EST) White Blood Count 6.9 4.8 - 10.8 X10*3/uL [facility] Red Blood Count 4.69 4.20 - 5.50 X10*6/uL [facility] Hemoglobin 13.8 12.0 - 16.0 g/dl [facility] Hematocrit 40.3 37.0 - 47.0 % [facility] Mean Corpuscular Volume 85.9 80.0 - 98.0 fL [facility] Mean Corpuscular Hemoglobin 29.4 27.0 - 33.0 pg [facility] Mean Corpuscular HGB Conc 34.2 31.0 - 35.0 g/dl [facility] Red Cell Distribution Width 12.9 11.0 - 16.0 % [facility] Platelet Count 267 160 - 400 X10*3/uL [facility] Mean Platelet Volume 10.5 9.4 - 12.3 fL [facility] Neutrophils Percent Auto 50.1 45 - 73 % [facility] Imm Gran Pct Auto 0.6(H) 0.0 - 0.4 % [facility] Lymphocytes Percent Auto 36.3 20 - 40 % [facility] Monocytes Percent Auto 10.1 2 - 11 % [facility] Eosinophils Percent Auto 2.5 0 - 4 % [facility] Basophils Percent Auto 0.4 0 - 2 % [facility] NRBC Pct Auto 0.0 0.0 - 0.2 /100WBC [facility] Neutrophils Absolute Auto 3.5 2.0 - 8.3 x10*3/uL [facility] Imm Gran Abs Auto 0.04(H) 0.00 - 0.03 X10*3/uL [facility] Lymphocytes Absolute Auto 2.5 1.2 - 4.9 X10*3/uL [facility] Monocytes Absolute Auto 0.7 0.1 - 1.2 X10*3/uL [facility] Eosinophils Absolute Auto 0.2 0.0 - 0.4 X10*3/uL [facility] Basophils Absolute Auto 0.0 0.0 - 0.2 X10*3/uL [facility] NRBC Abs Auto 0.000 0.0 - 0.012 X10*3/uL [facility] 12/06/2024 6:14 PM EST 12/06/2024 6:17 PM EST Generic External Data Provider LAB BLOOD ORDERAB LES Final Result Performing Organization Address City/[facility]/ZIP Co de Phone Number [facility] [address] [place] [phone] * Magnesium (12/06/2024 6:14 PM EST) Magnesium 1.7 1.6 - 2.6 mg/dL [facility] 12/06/2024 6:14 PM EST 12/06/2024 6:17 PM EST Generic External Data Provider LAB BLOOD ORDERAB LES Final Result Performing Organization Address [facility] Co de Phone Number [facility] [address] [place] [phone] * (ABNORMAL) Hepatic Function Panel (12/06/2024 6:14 PM EST) Bilirubin, Total 0.6 0.0 - 1.0 mg/dL [facility] Bilirubin, Direct 0.2 0.0 - 0.5 mg/dL [facility] Aspartate Amino Transferase 33(H) 5 - 31 U/L [facility] Alanine Aminotransferase 23 0 - 31 U/L [facility] Total Protein 8.1(H) 6.5 - 8.0 g/dL [facility] Albumin Level 4.1 3.5 - 5.0 g/dL [facility] Alkaline Phosphatase 74 39 - 117 U/L [facility] 12/06/2024 6:14 PM EST 12/06/2024 6:17 PM EST us Generic External Data Provider LAB BLOOD ORDERAB LES Final Result [facility] [address] [place] [phone] * (ABNORMAL) Basic Metabolic Panel (12/06/2024 6:14 PM EST) Sodium 139 135 - 145 mmol/L [facility] Potassium 3.7 3.3 - 5.1 mmol/L [facility] Chloride 103 96 - 108 mmol/L [facility] Carbon Dioxide 29 22 - 29 mmol/L [facility] Anion Gap 11(L) 12 - 20 [facility] Urea Nitrogen (BUN) 8(L) 9 - 16 mg/dL [facility] Creatinine, Serum 0.66 0.5 - 1.4 mg/dL [facility] Creatinine Clr Calc Pharmacy 103.6 [facility] Comment:Provided height and weight: 165.1 cm,91.2 kg.eGFR (calculated from the MDRD study equation) and eCrCl(calculated from the Cockcroft-Gault equation) are based ondifferent parameters and may not yield comparable results.If eCrCl result is absurd, please check patient'sheight/weight. Estimated Glomerular Filt Rate >60 [facility] Comment:Chronic Kidney Disea se: Estimated GFR < 60 mL/min/1.74e5Cbbiqq Kidney Disease: Estimated GFR < 15 mL/min/1.73m2 Glucose 102 60 - 115 mg/dL [facility] Calcium 9.6 8.4 - 10.2 mg/dL [facility] 12/06/2024 6:14 PM EST 12/06/2024 6:17 PM EST us Generic External Data Provider LAB BLOOD ORDERAB LES Final Result [facility] [address] [place] [phone] * ECG 12 lead (12/06/2024 5:37 PM EST) Narrative Hernán Worley MD - 12/06/2024 5:37 PM EST NSR 98. No arrhythmia. LAD. Pseudo-normalization of T-waves in lead III compared to 06/2024 EKG from [facility]. Hernán Worley MD ECG ORDERABLES Final Result [...] eye (OS) Refer to retina for eval. Result [facility] Aidee Miller OD OPHTH TOMOGRAPHY Edited Result - Final * POCT Rapid Influenza B GOEL ID NOW (11/14/2024 3:45 PM EST) [facility] Influenza B Negative Negative, Indeterminate [facility] Swab 11/14/2024 3:45 PM EST Gino Browning MD POINT OF CARE TEST ENTER/EDIT OR DERABLES Final Result [facility] [address] [place] [phone] * POCT Rapid Influenza A GOEL ID NOW (11/14/2024 3:45 PM EST) [facility] Influenza A Negative Negative, Indeterminate [facility] Swab 11/14/2024 3:45 PM EST Result Robbin Browning MD POINT OF CARE TEST ENTER/EDIT OR DERABLES Final Result [facility] [address] [place] [phone] * POCT Rapid Strep A GOEL ID NOW (11/14/2024 3:45 PM EST) [facility] Rapid Strep A Screen Negative Negative, None Detected Swab 11/14/2024 3:45 PM EST Result Robbin Browning MD POINT OF CARE TEST ENTER/EDIT OR DERABLES Final Result * POCT Rapid Covid-19 BinaxNOW (11/14/2024 3:45 PM EST) [facility] Rapid COVID Ag Negative Swab 11/14/2024 3:45 PM EST Result Robbin Browning MD POINT OF CARE TEST ENTER/EDIT OR DERABLES Final Result * POCT Glucose (11/08/2024 11:01 AM EST) [facility] Glucose Blood, POC 115 60 - 200 mg/dL QC Media Lot # [id number] Lot# Expiration Date 185862 Blood Capillary blood specimen / Unknown 11/08/2024 11:01 AM EST us Rosalba Kingsley MD POINT OF CARE TEST EN TER/EDIT ORDERABLES Final Result * POCT JUVE-14 Urine Drug Screen (10/06/2024 10:16 AM EST) [facility] TCA, Urine Positive Urine Urine specimen obtained by clean catch procedure / Unknown 10/06/2024 10:16 AM EST Jeannette Flores RN - 10/06/2024 10:16 AM EST UTOX cup Lot#[id number] Exp. 07/05/26 Internal Pass Control us Rosalba Kingsley MD POINT OF CARE TEST EN TER/EDIT ORDERABLES Final Result * (ABNORMAL) Lipid Panel with Reflex to Direct LDL (07/13/2024 3:15 PM EDT) Triglycerides 135 <150 mg/dL [facility] Comment:Desirable Triglyceri de: less than 150 mg/dLBorderline High Triglyceride 150-199 mg/dLHigh Triglyceride: 200-499 mg/dLVery High Triglyceride: greater than or equal to 5OO mg/dL Cholesterol 220(H) <200 mg/dL [facility] Comment:Desirable Cholestero l: less than 200 mg/dLBorderline High Cholesterol: 200-239 mg/dLHigh Cholesterol: greater than 239 mg/dL LDL Cholesterol Calculated 134(H) <100 mg/dL [facility] Comment:Desirable LDL: less than 100 mg/dLNear Optimal/Above Optimal LDL: 110- 129 mg/dLBorderline High LDL: 130-159 mg/dLHigh LDL: 160-189 mg/dLVery High LDL: greater than or equal to 190 mg/dL HDL Cholesterol 59 >40 mg/dL [facility] Comment:Desirable HDL: great er than 40 mg/dL Note: This HDL assay may give artificially low results in patients with liver disease. Blood 07/13/2024 3:15 PM EDT 07/13/2024 4:04 PM EDT us Rosalba Kingsley MD LAB BLOOD ORDERABLES Final Result [facility] [address] [place] [phone] * Albumin, Random Urine W/Creatinine (07/13/2024 12:00 AM EDT) Creatinine, Urine 115.51 mg/dL [facility] Microalbumin Urine 28.0 mg/L [facility] Microalbum Creatinine Ratio Ur 24.2 <30 ug/mg cr [facility] Comment:Albumin/Creatinine R atio Reference Ranges: Normal: < 30 ug/mg creatinine Microalbuminuria: 30 - 300 ug/mg creatinineClinical Albuminuria: > 300 ug/mg creatinine Urine (Urine, Random) 07/13/2024 07/13/2024 Rosalba Kingsley MD LAB URINE ORDERABLES Final Result [facility] [address] [place] [phone] * POCT HGB A1C (07/04/2024 1:36 PM EDT) Hemoglobin A1C 6.0 4.0 - 6.0 % QC Media Lot # [id number] Lot# Expiration Date ,[id number] Blood 07/04/2024 1:36 PM EDT Rosalba Kingsley MD POINT OF CARE TEST EN TER/EDIT ORDERABLES Final Result * BI Mammogram Diagnostic Tomosynthesis Bilateral (02/12/2024 10:01 AM EDT) Anatomical Region Laterality Modality Breast Bilateral Mammography 02/12/2024 10:0 1 AM EDT Narrative 02/12/2024 12:05 PM EDT ? [facility] ? [address] ?[place] [address] ? Mammography Report ? Signed ? Patient: Gutierrez,Kerline ?MR#: [id number] ? : 1965 ?Acct:[id number] ? Age/Sex: 58 / F ?ADM Date: 03/29/24 ? Loc: HO.MAMMO ? Attending Dr: Rosalba Kingsley MD ? Ordering Physician: Rosalba Shin MD ?Results: ?? 2Benign Findings ? Date of Service: 02/12/24 ?Follow Up: 1 Year From Orig ?? inal Mammogram ? Procedure(s): MM tomosynthesis diagnostic BI ?? Accession Number(s): [id number] ? cc: Rosalba Shin MD ? EXAMINATION: [...] signed by Dl Burton MD in OV> ?02/11/ 1201 ? DD/DT: 02/11/ 1001 ? TD/TT: ? Hydraulic Chair Assembler: ? Procedure Note Donotuseinterpreter, Image - 02/12/2024 [facility] [address] [place], [place] [address] Mammography Report Signed Patient: Diana Gutierrez#: [id number] : 1965Acct:[id number] Age/Sex: 58 / FADM Date: 02/12/24 Loc: HO.MAMMO Attending Dr: Rosalba Kingsley MD Ordering Physician: Rosalba Shin MDResults: 2Benign Findings Date of Service: 02/12/24Follow Up: 1 Year From Orig inal Mammogram Procedure(s): MM tomosynthesis diagnostic BI Accession Number(s): [id number] cc: Rosalba Shin MD EXAMINATION: MM DIAGNOSTIC [...] in OV> 02/12/24 1201 DD/ 1001 TD/TT: Hydraulic Chair Assembler: us Rosalba Kingsley MD IMG BI PROCEDURES Arash jamaal Result - Final * Image-Guided Pap with Age-Based Screening??with CT/NG,??Trichomonas (09/22/2023 10:18 AM EST) Trichomonas (NAAT) NOT DETECTED NOT DETECTED [facility] Comment:The analytical perfo rmance characteristics of thisassay have been determined by [employer]. Themodifications have not been cleared or approved bythe FDA. This assay has been validated pursuant to theCLIA regulations and is used for clinical purposes.For additional information, please refer [email or web address].[address].Letao/faq/Trichomonastma(This link is being provided for information/educational purposes only.)THIS TEST WAS PERFORMED AT:[facility] [address] [id number] GARCIA MD CTNG Ref Lab NOT DETECTED NOT DETECTED [facility] NG Ref Lab NOT DETECTED NOT DETECTED [facility] 09/22/2023 10:1 8 AM EST 09/23/2023 7:30 AM EST Rosalba Kingsley MD LAB CYTOLOGY ORDERABL ES Final Result Performing Organization Address [facility] Co de Phone Number [facility] [address] [place] [address] [phone] * HPV mRNA E6/E7 w/Reflex to HPV Genotypes 16, 18/45 (09/22/2023 10:18 AM EST) HPV nRNA E6/E7 Not Detected Not Detected [facility] Comment:Methodology: Transcr iption-Mediated AmplificationThis assay detects E6/E7 viral messenger RNA (mRNA) from 14high-risk HPV types (16,18,31,33,35,39,45,51,52,56,58,59,66,68).Cervical sources are required for HPV testing.If a vaginal source from a patient who has had atotal hysterectomy with removal of cervix wassubmitted, please contact the testing laboratoryfor alternative testing options.For additional information, please refer tohttp://education.Curazy/faq/ZQY005h0(This link if provided for information/educational purposes only.)THIS TEST WAS PERFORMED AT:[facility] [address] [id number] GARCIA MD HPV mRNA E6/E7 [facility] HPV 16 RNA TNP [facility] HPV 18/45 RNA [facility] 09/22/2023 10:1 8 AM EST 09/23/2023 7:30 AM EST us Rosalba Kingsley MD LAB CYTOLOGY ORDERABL ES Final Result Performing Organization Address [facility]/ZIP Co de Phone Number [facility] [address] [place] [address] [phone] * Hm Colonoscopy (06/01/2018) Colonoscopy Normal Normal Narrative Aditi Durand - 06/01/2018 Recommended 10 year follow up us Historical Provider MD HEALTH MAINTENANCE Final Result from Last 3 Months or Most Recently Relevant to Health Maintenance Insurance [facility] [address] [place] [address] DENTAL-[facility] MEDICAID STAND ADULT [address] [place] [id number] Care Teams Progressive Die Maker Relationship Specialty Start Date End Date Rosalba Shin MD [address] [place] [address] PCP - General Family Medicine 12/26/20
--- OUTSIDE RECORDS SUMMARY | 2024-12-15 17:54 | XMS_ITS | Encounter Summary ---
Author Organization [employer] [facility] Address [address] [place] [address] 7t [place] [address] Care Team Providers Care Artifacts Conservator Name Role Phone Rosalba Shin MD Primary Care Provide r Reason for Visit * Reason Comments Med Refill Encounter Details Date Type Department Care Team ([facility] Contact Info) Description 03/17/2023 Refill [facility] [address] [place] [phone] Rosalba Shin MD [address] [place] [address] Primary insomnia Social History Tobacco Use Types [...] Description 12/22/2024 11:30 AM EST Clinical Support [facility] [address] [place] [address] Jeannette Thomas RN documented as of this encounter Visit Diagnoses Diagnosis Primary insomnia Persistent disorder of initiating or maintaining sleep documented in this encounter Care Teams Artifacts Conservator Relationship Specialty Start Date End Date Rosalba Shin MD [address] [place] [address] PCP - General Family Medicine 12/26/20 documented as of this encounter
--- OUTSIDE RECORDS SUMMARY | 2024-12-15 17:54 | XMS_ITS | Encounter Summary ---
Author Organization 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 Aidee Miller, OD [address] [place] [address] Phone: tel: [place]: [place] [address] [place] [phone] Phone: tel: fax: Referral ID Status Reason Start Date Expiration Date V isits Requested Visits Authorized [id number] Closed Specialty Services Required 11/25/2024 11/25/2025 1 1 Encounter Details Date Type Department Care Team (Latest Contact Info) Description 11/25/2024 1:00 PM EST Office Visit [facility] [address] [place] [address] Aidee Miller, OD [address] [place] [address] Type 2 diabetes mellitus without ophthalmic manifestations [...] HOURS 90 tablet 1 Deep Sea Nasal [place] 0.65 % nasal spray SPRAY 2 SPRAYS [...] Severely titled with surroudning PPA, (-) NVD [place] and healthy, surrounding PPA (-) NVD C/D [...] 360 Refraction Manifest Refraction (Subjective) Sphere Cylinder [place] Dist [place] Add Right -1.00 Sphere 20/30+2 +2.50 Left +0.00 -0.25 180 20/25+2 +2.50 Manifest Refraction #2 (Auto) Sphere Cylinder [place] Dist [place] Add Right -1.50 -0.50 128 [...] PRN Aidee Miller, OD 11/28/2024, 1:04 PM Mail Distributor Source: __ None _x_ Bilingual Staff __ Qualified Staff Emergency Service Restorer __ Telephone Mail Distributor; ID# __ Mail Distributor brought by patient (family member, friend, ETHYLENE OXIDE PANELBOARD OPERATOR, etc) __ In person client application support specialist __ Ipad Mail Distributor; ID#: Language Spoken During Exam: Mexican documented in this encounter Plan of Treatment Upcoming Encounters Date Type Department Care Team (Late st Contact Info) Description 12/22/2024 11:30 AM EST Clinical Support [facility] [address] [place] [address] Jeannette Thomas RN Scheduled Referrals Name Type [...] - Both Eyes (11/25/2024 1:00 PM EST) Pamela Aidee Miller, OD - 11/28/2024 1:18 PM [...] (OS) Refer to retina for eval. 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
--- OUTSIDE RECORDS SUMMARY | 2024-12-15 17:54 | XMS_ITS | Encounter Summary ---
Author Organization [employer] Address 75 [facility] 7t [place] [address] Care Team Providers Care Fire Chief'S Aide Name Role Phone Rosalba Shin MD Primary Care Provide r Reason for Visit * Reason Comments Med Refill Encounter Details Date Type Department Care Team ([facility] st Contact Info) Description 12/02/2024 Refill [facility] [address] [place], [place] [phone] Name, MD Gino [address] [place] [address] Social History Tobacco Use Types Packs/Day Years [...] Description 12/22/2024 11:30 AM EST Clinical Support [facility] [address] [place] [address] Jeannette Thomas RN documented as of this encounter Visit Diagnoses Not on filedocumented in this encounter Additional Health Concerns Assessment Noted Time PHQ-9 Depression Total Score: 0 08/12/20 24 11:42 AM EDT documented as of this encounter Care Teams Fire Chief'S Aide Relationship Specialty Start Date End Date Rosalba Shin MD [address] [place] [address] PCP - General Family Medicine 12/26/20 documented as of this encounter
--- OUTSIDE RECORDS SUMMARY | 2024-12-15 17:54 | XMS_ITS | Encounter Summary ---
Author Organization [employer] Address 75 [facility] 7t [place] [address] Care Team Providers Care Physical Geographer Name Role Phone Rosalba Shin MD Primary Care Provide r Reason for Visit * Reason Comments Med Refill Encounter Details Date Type Department Care Team ([facility] st Contact Info) Description 06/08/2024 Refill [facility] [address] [place], [place] [phone] Rosalba Shin MD [address] [place], [place] [phone] Fibromyalgia Social History Tobacco Use Types Packs/Day [...] Description 12/22/2024 11:30 AM EST Clinical Support [facility] [address] [place] [address] Jeannette Thomas RN documented as of this encounter Visit Diagnoses Diagnosis Fibromyalgia Unspecified myalgia and myositis documented in this encounter Additional Health Concerns Assessment Noted Time PHQ-9 Depression Total Score: 7 04/06/20 23 2:10 PM EDT documented as of this encounter Care Teams Physical Geographer Relationship Specialty Start Date End Date Rosalba Shin MD [address] [place] [address] PCP - General Family Medicine 12/26/20 documented as of this encounter
--- OUTSIDE RECORDS SUMMARY | 2024-12-15 17:54 | XMS_ITS | Clinical Summary ---
Author Organization [facility] Address [address] [place] [address] Care Team Providers Care Pricing Associate Name Role Phone Unavailable Primary Care Provider [...]
--- OUTSIDE RECORDS SUMMARY | 2024-12-15 17:54 | XMS_ITS | Encounter Summary ---
Author Organization [employer] [facility] Address [address] [place] [address] 7t [place] [address] Care Team Providers Care Floriculture Professor Name Role Phone Rosalba Shin MD Primary Care Provide r Reason for Visit * Reason Comments Med Refill Encounter Details Date Type Department Care Team (Late st Contact Info) Description 03/10/2023 Refill [facility] [address] [place] [phone] Name, MD Gino [address] [place] [phone] Chronic low back pain, unspecified back pain [...] Description 12/22/2024 11:30 AM EST Clinical Support [facility] [address] [place] [address] [phone] Jeannette Thomas RN documented as of this encounter Visit Diagnoses Diagnosis Chronic low back pain, unspecified back pain laterality, unspecified whether sciatica present documented in this encounter Care Teams Floriculture Professor Relationship Specialty Start Date End Date Rosalba Shin MD [address] [place] [address] PCP - General Family Medicine 12/26/20 documented as of this encounter
--- OUTSIDE RECORDS SUMMARY | 2024-12-15 17:54 | XMS_ITS | Encounter Summary ---
Author Organization [employer] Address 75 [facility] 7t [place] [address] Care Team Providers Care Sole Stitcher Hand Name Role Phone Rosalba Shin MD Primary Care Provide r Encounter Details Date Type Department Care Team ([facility] st Contact Info) Description 12/06/2024 6:40 PM EST Office Visit [facility] [address] [place], [place] [phone] Hernán Worley MD [address] [place], [place] [phone] Left-sided chest pain (Primary Dx) Social History [...] - ECG 12 lead Patient presents to [facility] due to left-sided chest pain started last night at rest Pain has been waxing and waning Radiating to her back EKG shows LAD and pseudo-normalization of T-waves in lead III Discussed further management Discussed with [facility] to coordinate care Patient understands and agrees with the plan Ambulance called for transport O2 support provided while waiting for the ambulance documented in this encounter Plan of Treatment Upcoming Encounters Date Type Department Care Team (Late st Contact Info) Description 12/22/2024 11:30 AM EST Clinical Support [facility] [address] [place] [address] Jeannette Thomas RN documented as of this [...] lead III compared to 06/2024 EKG from [facility] us Hernán Worley MD ECG ORDERABLES Final Result documented in this encounter Visit Diagnoses Diagnosis Left-sided chest pain- Primary documented in this encounter Additional Health Concerns Assessment Noted Time PHQ-9 Depression Total Score: 0 08/12/20 24 11:42 AM EDT documented as of this encounter Care Teams Sole Stitcher Hand Relationship Specialty Start Date End Date Rosalba Shin MD [address] [place] [phone] PCP - General Family Medicine 12/26/20 documented as of this encounter
--- OUTSIDE RECORDS SUMMARY | 2024-12-15 17:54 | XMS_ITS | Encounter Summary ---
Author Organization [employer] Address 75 [facility] 7t [place] [address] Care Team Providers Care Interior Design Faculty Member Name Role Phone Rosalba Shin MD Primary Care Provide r Reason for Visit * Reason Onset Date Comments Recommend REGIONAL SAFETY MANAGER Tier 2 12/06/2024 Encounter Details Date Type Department Care Team ([facility] st Contact Info) Description 12/06/2024 Telephone [facility] [address] [place] [address] Jeannette Thomas, KARLENE Recommend REGIONAL SAFETY MANAGER Tier 2 Social History Tobacco Use Types [...] RN - 12/06/2024 7:54 AM EST What REGIONAL SAFETY MANAGER Tier would you like this patient to be? I recommend Tier 2, please let me know if you agree or would rather patient be in another REGIONAL SAFETY MANAGER Tier. Tier 1 = HIGH RISK, Monthly REGIONAL SAFETY MANAGER visits Tier 2 = MODerate RISK, Q3 Month visits Tier 3 = LOW RISK = Q4-6 month visits documented in this encounter Plan of Treatment Upcoming Encounters Date Type Department Care Team (Late st Contact Info) Description 12/22/2024 11:30 AM EST Clinical Support [facility] [address] [place] [address] Jeannette Thomas, RN documented as of this encounter Visit Diagnoses Not on filedocumented in this encounter Additional Health Concerns Assessment Noted Time PHQ-9 Depression Total Score: 0 08/12/20 24 11:42 AM EDT documented as of this encounter Care Teams Interior Design Faculty Member Relationship Specialty Start Date End Date Rosalba Shin MD [address] [place] [address] PCP - General Family Medicine 12/26/20 documented as of this encounter
--- OUTSIDE RECORDS SUMMARY | 2024-12-15 17:54 | XMS_ITS | Encounter Summary ---
Author Organization [employer] Address 75 [facility] 7t [place] [address] Care Team Providers Care Director Adult Name Role Phone Rosalba Shin MD Primary Care Provide r Reason for Visit * Reason Comments Med Refill Encounter Details Date Type Department Care Team (Late st Contact Info) Description 12/02/2024 Refill [facility] [address] [place], [place] [phone] Maria L Navarro MD [address] [place], [place] [phone] Hypothyroidism, unspecified type; Iron deficiency anemia, unspecified [...] Description 12/22/2024 11:30 AM EST Clinical Support [facility] [address] [place] [address] Jeannette Thomas RN documented as of this encounter Visit Diagnoses Diagnosis Hypothyroidism, unspecified type Iron deficiency anemia, unspecified iron deficiency anemia type Type 2 diabetes mellitus without complication, without long-term current use of insulin ([facility]) Folliculitis Other specified disease of hair and hair follicles Pain Generalized pain Chronic low back pain, unspecified back pain laterality, unspecified whether sciatica present Rash Rash and other nonspecific skin eruption Mild intermittent asthma with exacerbation Unspecified asthma, with exacerbation documented in this encounter Additional Health Concerns Assessment Noted Time PHQ-9 Depression Total Score: 0 08/12/20 24 11:42 AM EDT documented as of this encounter Care Teams Director Adult Relationship Specialty Start Date End Date Rosalba Shin MD [address] [place] [address] PCP - General Family Medicine 12/26/20 documented as of this encounter
--- OUTSIDE RECORDS SUMMARY | 2024-12-15 17:54 | XMS_ITS | Encounter Summary ---
Author Organization [employer] Address 75 [facility] 7t [place] [address] Care Team Providers Care Ending Machine Operator Name Role Phone Rosalba Shin [...] 11:30 AM EST Clinical Support [facility] [address] [place] [address] Jeannette Thomas RN documented as of this encounter Visit Diagnoses Not on filedocumented in this encounter Additional Health Concerns Assessment Noted Time PHQ-9 Depression Total Score: 0 08/12/20 24 11:42 AM EDT documented as of this encounter Care Teams Ending Machine Operator Relationship Specialty Start Date End Date Rosalba Shin MD [address] [place] [address] PCP - General Family Medicine 12/26/20 documented as of this encounter
--- OUTSIDE RECORDS SUMMARY | 2024-12-15 17:54 | XMS_ITS | Encounter Summary ---
Author Organization [employer] Address [address] [facility] 7t [place] [address] Care Team Providers Care Dough Mixer Operator Name Role Phone Rosalba Shin MD Primary Care Provide r Encounter Details Date Type Department Care Team (Late st Contact Info) Description 08/26/2023 Abstract [facility] [address] [place] [address] Rosalba Shin MD [address] [place] [address] Social History Tobacco Use Types Packs/Day Years [...] t he electric, gas, oil or water [employer] threatened to shut off services in your [...] Description 12/22/2024 11:30 AM EST Clinical Support [facility] [address] [place] [address] Jeannette Thomas RN documented as of this encounter Procedures Procedure Name Priority Date/Time Associated Diagnosis Comments COLONOSCOPY Routine 06/01/2018 documented in this encounter Results * Colonoscopy (06/01/2018) Colonoscopy Normal Normal Narrative Aditi Durand - 06/01/2018 Recommended 10 year follow up us Historical Provider HEALTH MAINTENANCE Final Result documented in this encounter Visit Diagnoses Not on filedocumented in this encounter Additional Health Concerns Assessment Noted Time PHQ-9 Depression Total Score: 7 04/06/20 23 2:10 PM EDT documented as of this encounter Care Teams Dough Mixer Operator Relationship Specialty Start Date End Date Rosalba Shin MD [address] [place] [address] PCP - General Family Medicine 12/26/20 documented as of this encounter
--- OUTSIDE RECORDS SUMMARY | 2024-12-15 17:54 | XMS_ITS | Encounter Summary ---
Author Organization [employer] Address [address] [facility] 7t [place] [address] Care Team Providers Care Office Assistance Name Role Phone Rosalba Shin MD Primary Care Provide r Reason for Visit * Reason Comments Med Refill Encounter Details Date Type Department Care Team ([facility] st Contact Info) Description 12/02/2024 Refill [facility] [address] [place], [place] [phone] Alban Diaz MD [address] [place], [place] [phone] Folliculitis Social History Tobacco Use Types Packs/Day [...] Description 12/22/2024 11:30 AM EST Clinical Support [facility] [address] [place] [address] Jeannette Thomas, RN documented as of this encounter Visit Diagnoses Diagnosis Folliculitis Other specified disease of hair and hair follicles documented in this encounter Additional Health Concerns Assessment Noted Time PHQ-9 Depression Total Score: 0 08/12/20 24 11:42 AM EDT documented as of this encounter Care Teams Office Assistance Relationship Specialty Start Date End Date Rosalba Shin MD [address] [place] [address] PCP - General Family Medicine 12/26/20 documented as of this encounter
--- OUTSIDE RECORDS SUMMARY | 2024-12-15 17:54 | XMS_ITS | Encounter Summary ---
Author Organization [employer] Address [address] [facility] 7t [place] [address] Care Team Providers Care Bank Worker Name Role Phone Rosalba Shin MD Primary Care Provide r Reason for Visit * Reason Comments Med Refill Encounter Details Date Type Department Care Team ([facility] st Contact Info) Description 12/02/2024 Refill [facility] [address] [place], [place] [phone] Ofelia Wright, ANP [address] [place], [place] [phone] Type 2 diabetes mellitus without complication, without long-term current use of insulin ([facility]) Social History Tobacco Use Types Packs/Day Years [...] Description 12/22/2024 11:30 AM EST Clinical Support [facility] [address] [place] [address] Jeannette Thomas, RN documented as of this encounter Visit Diagnoses Diagnosis Type 2 diabetes mellitus without complication, without long-term current use of insulin ([facility]) documented in this encounter Additional Health Concerns Assessment Noted Time PHQ-9 Depression Total Score: 0 08/12/20 24 11:42 AM EDT documented as of this encounter Care Teams Bank Worker Relationship Specialty Start Date End Date Rosalba Shin MD [address] [place] [address] PCP - General Family Medicine 12/26/20 documented as of this encounter
--- OUTSIDE RECORDS SUMMARY | 2024-12-15 17:54 | XMS_ITS | Encounter Summary ---
Author Organization [email or web address] Address [address] [facility] 7t [place] [address] Care Team Providers Care Barrel Maker Name Role Phone Rosalba Shin MD Primary Care Provide r Reason for Visit * Reason Comments Med Refill Encounter Details Date Type Department Care Team ([facility] st Contact Info) Description 12/02/2024 Refill [facility] [address] [place], [place] [phone] Rosalba Shin MD [address] [place] [address] Fibromyalgia; Primary insomnia; Chronic low back pain, [...] [facility] [address] [place] [address] Jeannette Thomas RN documented as of this [...] documented as of this encounter Care Teams Barrel Maker Relationship Specialty Start Date End Date Rosalba Shin MD [address] [place] [address] PCP - General Family Medicine 12/26/20 documented as of this encounter
--- OUTSIDE RECORDS SUMMARY | 2024-12-15 17:54 | XMS_ITS | Encounter Summary ---
Author Organization [employer] Address 75 [facility] 7t [place] [address] Care Team Providers Care Telepathist Name Role Phone Rosalba Shin MD Primary Care Provide r Reason for Visit * Reason Comments Dental Pain Pt came in as an lefty rgency with pain for the pass week, panorex taken Encounter Details Date Type Department Care Team (Late st Contact Info) Description 12/02/2024 1:30 PM EST Office Visit [facility] [address] [place] [address] Fly Salgado, DDS [address] [place], [place] [phone] Dental abscess (Primary Dx) Social History Tobacco [...] female. Time Out: No data recorded Location: [facility] Tooth: Maxilla Procedure: X-rays and Emergency Verified the above with patient, gift shop assistant, and provider. Confirmed via patient's chart, intraorally and by radiographs. Slip Cover Estimator: not applicable Chief Complaint Patient presents with [...] HOURS 90 tablet 1 Deep Sea Nasal [place] 0.65 % nasal spray SPRAY 2 SPRAYS [...] answered. Dismissed in good condition. NV: JORJE Scheduling Specialist: Komal Muse Dentist: Fly Salgado DDS documented in this encounter Plan of Treatment Upcoming Encounters Date Type Department Care Team (Late st Contact Info) Description 12/22/2024 11:30 AM EST Clinical Support [facility] [address] [place] [phone] Jeannette Thomas RN documented as of this encounter Procedures Procedure Name Priority Date/Time Associated Diagnosis Comments LIMITED ORAL EVALUATION - PROBLEM FOCUSED Routine 12/02/2024 1:30 PM EST ADJUNCTIVE GENERAL SERVICES - PROFESSIONAL VISITS - CASE PRESENTATION, SUBSEQUENT TO DETAILED AND EXTENSIVE TREATMENT PLANNING Routine 12/02/2024 1:30 PM EST documented in this encounter Visit Diagnoses Diagnosis Dental abscess- Primary Periapical abscess without sinus documented in this encounter Additional Health Concerns Assessment Noted Time PHQ-9 Depression Total Score: 0 08/12/20 24 11:42 AM EDT documented as of this encounter Care Teams Telepathist Relationship Specialty Start Date End Date Rosalba Shin MD [address] [place] [address] PCP - General Family Medicine 12/26/20 documented as of this encounter
== END 2024-12-15 14:23 | disposition home or self-care (01) ==
PROVIDERS: PCP Internal Medicine; Visit Provider Internal Medicine Pulmonary Disease
DX: J45.909 Unspecified asthma, uncomplicated (principal); Z91.09 Other allergy status, other than to drugs and biological substances
CPT/HCPCS: 99204

== ENCOUNTER → 2024-12-15 14:00 | Outpatient (BNVA) | payer MEDICAID, SELFPAY | PROVIDERS: PCP Internal Medicine; Visit Provider Internal Medicine Pulmonary Disease | DX: J45.909 Unspecified asthma, uncomplicated (principal); Z91.09 Other allergy status, other than to drugs and biological substances | CPT/HCPCS: 99202 ==

== ENCOUNTER 2024-12-16 10:34 | Outpatient (REF) | payer MEDICAID, SELFPAY ==
--- NOTE | 2024-12-16 | PFT_ITS ---
Flows: FEV1: 95 % of predicted at 2.51 L FVC: 89 % of predicted at 2.99 L FEV1/FVC: 84 % Bronchodilator response: Absent Volumes: Total lung capacity: 77 % of predicted at 4.10 L Residual volume: 64 % of predicted at 1.12 L Slow vital capacity: 83 % of predicted at 2.99 L Expiratory reserve volume: 55 % of predicted at 0.50 L Diffusion capacity: Normal Impression: Mild restrictive ventilatory defect with no bronchodilator response. MTDD
--- OUTSIDE RECORDS SUMMARY | 2024-12-16 11:17 | XMS_ITS | Encounter Summary ---
Author Organization [employer] Address 75 [facility] 7t [place] [address] Care Team Providers Care Cloth Worker Name Role Phone Rosalba Shin MD Primary Care Provide r Reason for Visit * Reason Comments Med Refill Encounter Details Date Type Department Care Team ([facility] st Contact Info) Description 10/22/2023 Refill [facility] [address] [place], [place] [phone] Maria L Navarro MD [address] [place], [place] [phone] Chronic low back pain, unspecified back pain [...] Description 12/22/2024 11:30 AM EST Clinical Support [facility] [address] [place] [address] Jeannette [place] RN documented as of this encounter Visit Diagnoses Diagnosis Chronic low back pain, unspecified back pain laterality, unspecified whether sciatica present documented in this encounter Additional Health Concerns Assessment Noted Time PHQ-9 Depression Total Score: 7 04/06/20 23 2:10 PM EDT documented as of this encounter Care Teams Cloth Worker Relationship Specialty Start Date End Date Rosalba Shin MD [address] [place] [address] PCP - General Family Medicine 12/26/20 documented as of this encounter
--- OUTSIDE RECORDS SUMMARY | 2024-12-16 11:17 | XMS_ITS | Encounter Summary ---
Author Organization [employer] Address 75 [facility] 7t [place] [address] Care Team Providers Care Aquatics Director Name Role Phone Rosalba Shin MD Primary [...] Description 12/22/2024 11:30 AM EST Clinical Support [address] [address] Jeannette Thomas RN documented as of this [...] EST Narrative 12/06/2024 7:15 PM EST ? [facility] [facility] ?[address] ?[place] [address] ?XRay Report ? Signed ? Patient: Gutierrez,Kerline ?MR#: [id number] ? : 1965 ?Acct:[id number] ? Age/Sex: 59 / F ?ADM Date: 12/06/24 ? Loc: HO.ED ? Attending Dr: ? Ordering Physician: Madhavi Carvalho ?? Date of Service: 12/06/24 ?? Procedure(s): XR chest 2V ?? Accession Number(s): [id number] ? cc: Rosalba Shin MD; Madhavi Carvalho [...] ? DD/ 12 ? TD/TT: 12/06/241912 ? Manager Msw: ? Procedure Note Flavia, Image - 12/06/2024 [place] [address] XRay Report Signed Patient: Diana Gutierrez#: [id number] : 1965Acct:[id number] Age/Sex: 59 / FADM Date: 12/06/24 Loc: HO.ED Attending Dr: Ordering Physician: Madhavi Carvalho Date of Service: 12/06/24 Procedure(s): XR chest 2V Accession Number(s): [id number] cc: Rosalba Shin MD; Madhavi Carvalho CLINICAL [...] in OV> 12/06/241913 DD/ 12 TD/TT: 12/06/241912 Manager Msw: [facility] External Provider IMG XR PROCEDURES Final Result * SARS-CoV-2 RNA, Influenza A/B, and RSV RNA, Ql NAAT (12/06/2024 6:14 PM EST) Pathologist [facility] Influenza A PCR NEGATIVE Negative [facility] Influenza B PCR NEGATIVE Negative [facility] Resp Syncy Virus RNA Qual PCR NEGATIVE Negative [facility] SARS COV2 PCR NEGATIVE Negative [facility] Comment:All test results mus t [...] use by authorized laboratories.Testing performed on the [employer] GeneXpert utilizingreal-time RT-PCR.All SARS CoV2 and positive influenza A/B results arereported to [facility]. 12/06/2024 6:14 PM EST 12/06/2024 6:17 PM EST Generic External Data Provider LAB MICROBIOLOGY - GENERAL ORDERABLES Final Result [facility] [address] [place] [phone] * (ABNORMAL) CBC auto differential (12/06/2024 6:14 PM EST) Pathologist [facility] White Blood Count 6.9 4.8 - 10.8 X10*3/uL [facility] Red Blood Count 4.69 4.20 - 5.50 X10*6/uL [facility] Hemoglobin 13.8 12.0 - 16.0 g/dl [facility] Hematocrit 40.3 37.0 - 47.0 % [facility] Mean Corpuscular Volume 85.9 80.0 - 98.0 fL [facility] Mean Corpuscular Hemoglobin 29.4 27.0 - 33.0 pg [facility] Mean Corpuscular HGB Conc 34.2 31.0 - 35.0 g/dl [facility] Red Cell Distribution Width 12.9 11.0 - 16.0 % [facility] Platelet Count 267 160 - 400 X10*3/uL [facility] Mean Platelet Volume 10.5 9.4 - 12.3 fL [facility] Neutrophils Percent Auto 50.1 45 - 73 % [facility] Imm Gran Pct Auto 0.6(H) 0.0 - 0.4 % [facility] Lymphocytes Percent Auto 36.3 20 - 40 % [facility] Monocytes Percent Auto 10.1 2 - 11 % [facility] Eosinophils Percent Auto 2.5 0 - 4 % [facility] Basophils Percent Auto 0.4 0 - 2 % [facility] NRBC Pct Auto 0.0 0.0 - 0.2 /100WBC [facility] Neutrophils Absolute Auto 3.5 2.0 - 8.3 x10*3/uL [facility] Imm Gran Abs Auto 0.04(H) 0.00 - 0.03 X10*3/uL [facility] Lymphocytes Absolute Auto 2.5 1.2 - 4.9 X10*3/uL [facility] Monocytes Absolute Auto 0.7 0.1 - 1.2 X10*3/uL [facility] Eosinophils Absolute Auto 0.2 0.0 - 0.4 X10*3/uL [facility] Basophils Absolute Auto 0.0 0.0 - 0.2 X10*3/uL [facility] NRBC Abs Auto 0.000 0.0 - 0.012 X10*3/uL [facility] 12/06/2024 6:14 PM EST 12/06/2024 6:17 PM EST us Generic External Data Provider LAB BLOOD ORDERAB LES Final Result Performing Organization Address [facility] Co de Phone Number [facility] [address] [place] [phone] * High Sensitivity Troponin I (12/06/2024 6:14 PM EST) Pathologist [facility] TROPONIN I HIGH SENSITIVITY <2.7 <3.5 - 17.0 ng/L [facility] Comment:The Kelly high sens itivity Troponin-I results should beused in conjunction with other diagnostic information suchas ECG, clinical observations and information, and patientsymptoms to aid in the diagnosis of [place]. 12/06/2024 6:14 PM EST 12/06/2024 6:17 PM EST Generic External Data Provider LAB BLOOD ORDERAB LES Final Result Performing Organization Address [facility] Phone [facility] [address] [place] [phone] * Magnesium (12/06/2024 6:14 PM EST) Pathologist [facility] Magnesium 1.7 1.6 - 2.6 mg/dL [facility] 12/06/2024 6:14 PM EST 12/06/2024 6:17 PM EST Generic External Data Provider LAB BLOOD ORDERAB LES Final Result Performing Organization Address [facility] Phone Number [facility] [address] [place] [phone] * (ABNORMAL) Basic Metabolic Panel (12/06/2024 6:14 PM EST) Sodium 139 135 - 145 mmol/L [facility] Potassium 3.7 3.3 - 5.1 mmol/L [facility] Chloride 103 96 - 108 mmol/L [facility] Carbon Dioxide 29 22 - 29 mmol/L [facility] Anion Gap 11(L) 12 - 20 [facility] Urea Nitrogen (BUN) 8(L) 9 - 16 mg/dL [facility] Creatinine, Serum 0.66 0.5 - 1.4 mg/dL [facility] Creatinine Clr Calc Pharmacy 103.6 [facility] Comment:Provided height and weight: 165.1 cm,91.2 kg.eGFR (calculated from the MDRD study equation) and eCrCl(calculated from the Cockcroft-Gault equation) are based ondifferent parameters and may not yield comparable results.If eCrCl result is absurd, please check patient'sheight/weight. Estimated Glomerular Filt Rate >60 [facility] Comment:Chronic Kidney Disea se: Estimated GFR < 60 mL/min/1.73e2Dkbrsg Kidney Disease: Estimated GFR < 15 mL/min/1.73m2 Glucose 102 60 - 115 mg/dL [facility] Calcium 9.6 8.4 - 10.2 mg/dL [facility] 12/06/2024 6:14 PM EST 12/06/2024 6:17 PM EST us Generic External Data Provider LAB BLOOD ORDERAB LES Final Result [facility] [address] [place] [phone] * (ABNORMAL) Hepatic Function Panel (12/06/2024 6:14 PM EST) Bilirubin, Total 0.6 0.0 - 1.0 mg/dL [facility] Bilirubin, Direct 0.2 0.0 - 0.5 mg/dL [facility] Aspartate Amino Transferase 33(H) 5 - 31 U/L [facility] Alanine Aminotransferase 23 0 - 31 U/L [facility] Total Protein 8.1(H) 6.5 - 8.0 g/dL [facility] Albumin Level 4.1 3.5 - 5.0 g/dL [facility] Alkaline Phosphatase 74 39 - 117 U/L [facility] 12/06/2024 6:14 PM EST 12/06/2024 6:17 PM EST us Generic External Data Provider LAB BLOOD ORDERAB LES Final Result Performing Organization Address City/State/[facility] Co de Phone Number [facility] [address] [place] [phone] documented in this encounter Visit Diagnoses Not on filedocumented in this encounter Additional Health Concerns Assessment Noted Time PHQ-9 Depression Total Score: 0 08/12/20 24 11:42 AM EDT documented as of this encounter Care Teams Aquatics Director Relationship Specialty Start Date End Date Rosalba Shin MD [address] [place] [phone] PCP - General Family Medicine 12/26/20 documented as of this encounter
--- OUTSIDE RECORDS SUMMARY | 2024-12-16 11:17 | XMS_ITS | Encounter Summary ---
Author Organization [employer] Address 75 [facility] 7t [place] [address] Care Team Providers Care Pediatric Speech Therapist Name Role Phone Rosalba Shin MD Primary Care Provide r Reason for Visit * Reason Comments Med Refill Encounter Details Date Type Department Care Team ([facility] st Contact Info) Description 12/02/2024 Refill [facility] [address] [place], [place] [phone] Rosalba Shin MD [address] [place] [address] Fibromyalgia; Primary insomnia; Chronic low back pain, [...] your housing situation today? I have sailaja mujcia 06/20/[address] you li [...] Description 12/22/2024 11:30 AM EST Clinical Support [facility] [address] [place] [address] Jeannette [place] RN documented as of this [...] documented as of this encounter Care Teams Pediatric Speech Therapist Relationship Specialty Start Date End Date Rosalba Shin MD [address] [place] [address] PCP - General Family Medicine 12/26/20 documented as of this encounter
--- OUTSIDE RECORDS SUMMARY | 2024-12-16 11:17 | XMS_ITS | Encounter Summary ---
Author Organization [employer] Address 75 [facility] 7t [place] [address] Care Team Providers Care Dynamic Etching Processor Name Role Phone Rosalba Shin MD Primary Care Provide r Reason for Visit * Reason Comments Dental Pain Pt came in as an lefty rgency with pain for the pass week, panorex taken Encounter Details Date Type Department Care Team (Late st Contact Info) Description 12/02/2024 1:30 PM EST Office Visit [facility]ULT [facility] [address] [place] [address] Fly Salgado, DDS [address] [place] [address] Dental abscess (Primary Dx) Social History Tobacco [...] female. Time Out: No data recorded Location: [facility] Tooth: Maxilla Procedure: X-rays and Emergency Verified the above with patient, certified first assistant, and provider. Confirmed via patient's chart, intraorally and by radiographs. Lead Refiner: not applicable Chief Complaint Patient presents with [...] HOURS 90 tablet 1 Deep Sea Nasal [place] 0.65 % nasal spray SPRAY 2 SPRAYS [...] answered. Dismissed in good condition. NV: JORJE Customer Support Agent: Komal Muse Dentist: Fly Salgado DDS documented in this encounter Plan of Treatment Upcoming Encounters Date Type Department Care Team (Late st Contact Info) Description 12/22/2024 11:30 AM EST Clinical Support [facility] [address] [place] [phone] Jeannette [place] RN documented as of this [...] documented as of this encounter Care Teams Dynamic Etching Processor Relationship Specialty Start Date End Date Rosalba Shin MD [address] [place] [address] PCP - General Family Medicine 12/26/20 documented as of this encounter
--- OUTSIDE RECORDS SUMMARY | 2024-12-16 11:17 | XMS_ITS | Encounter Summary ---
Author Organization [employer] Address 75 [facility] 7t [place] [address] Care Team Providers Care Control Technician Name Role Phone Rosalba Shin MD Primary Care Provide r Reason for Visit * Reason Comments Med Refill Encounter Details Date Type Department Care Team ([facility] st Contact Info) Description 06/08/2024 Refill [facility] [address] [place], [place] [phone] Rosalba Shin MD [address] [place], [place] [phone] Fibromyalgia Social History Tobacco Use Types Packs/Day [...] Description 12/22/2024 11:30 AM EST Clinical Support [facility] [address] [place] [address] Jeannette [place] RN documented as of this encounter Visit Diagnoses Diagnosis Fibromyalgia Unspecified myalgia and myositis documented in this encounter Additional Health Concerns Assessment Noted Time PHQ-9 Depression Total Score: 7 04/06/20 23 2:10 PM EDT documented as of this encounter Care Teams Control Technician Relationship Specialty Start Date End Date Rosalba Shin MD [address] [place] [address] PCP - General Family Medicine 12/26/20 documented as of this encounter
--- OUTSIDE RECORDS SUMMARY | 2024-12-16 11:17 | XMS_ITS | Encounter Summary ---
Author Organization [employer] Address 75 [facility] 7t [place] [address] Care Team Providers Care Snaker Name Role Phone Rosalba Shin MD Primary Care Provide r Reason for Visit * Reason Comments Med Refill Encounter Details Date Type Department Care Team ([facility] st Contact Info) Description 12/07/2024 Refill [facility] [address] [place], [place] [phone] Rosalba Shin MD [address] [place], [place] [phone] Moderate persistent asthma, unspecified whether complicated Social [...] EST Clinical Support [facility] [address] [place] [address] Jeannette [place], KARLENE documented as of this encounter Visit Diagnoses Diagnosis Moderate persistent asthma, unspecified whether complicated documented in this encounter Additional Health Concerns Assessment Noted Time PHQ-9 Depression Total Score: 0 08/12/20 24 11:42 AM EDT documented as of this encounter Care Teams Snaker Relationship Specialty Start Date End Date Rosalba Shin MD [address] [place] [address] PCP - General Family Medicine 12/26/20 documented as of this encounter
--- OUTSIDE RECORDS SUMMARY | 2024-12-16 11:18 | XMS_ITS | Encounter Summary ---
Author Organization [employer] Address 75 [facility] 7t [place] [address] Care Team Providers Care Supply Aide Name Role Phone Rosalba Shin MD Primary Care Provide r Reason for Visit * Reason Onset Date Comments [facility] for ITALIAN TEACHER RV appt today 12/06/2024 Encounter Details Date Type Department Care Team (Late st Contact Info) Description 12/06/2024 Telephone [facility] [address] [place] [address] Jeannette [place] RN [facility] for ITALIAN TEACHER RV appt today Social History Tobacco Use [...] 12:50 PM EST Pt was [facility] for ITALIAN TEACHER RV appt today. TC via via comoran speaking staff member pauline Fink stated she forgot. Appt rescheduled for 12/22/23 @11:30am documented in this encounter Plan of Treatment Upcoming Encounters Date Type Department Care Team (Late st Contact Info) Description 12/22/2024 11:30 AM EST Clinical Support [facility] [address] [place] [address] Jeannette [place], RN documented as of this encounter Visit Diagnoses Not on filedocumented in this encounter Additional Health Concerns Assessment Noted Time PHQ-9 Depression Total Score: 0 08/12/20 24 11:42 AM EDT documented as of this encounter Care Teams Supply Aide Relationship Specialty Start Date End Date Rosalba Shin MD [address] [place] [address] PCP - General Family Medicine 12/26/20 documented as of this encounter
--- OUTSIDE RECORDS SUMMARY | 2024-12-16 11:18 | XMS_ITS | Encounter Summary ---
Author Organization [employer] Address 75 [facility] 7t [place] [address] Care Team Providers Care Spice Mixer Name Role Phone Rosalba Shin MD Primary Care Provide r Reason for Visit * Reason Comments Med Refill Encounter Details Date Type Department Care Team ([facility] st Contact Info) Description 12/02/2024 Refill [facility] [address] [place], [place] [phone] Name, MD Gino [address] [place] [address] Social History Tobacco Use Types Packs/Day Years [...] 11:30 AM EST Clinical Support [facility] [address] [place] [address] Jeannette [place] RN documented as of this encounter Visit Diagnoses Not on filedocumented in this encounter Additional Health Concerns Assessment Noted Time PHQ-9 Depression Total Score: 0 08/12/20 24 11:42 AM EDT documented as of this encounter Care Teams Spice Mixer Relationship Specialty Start Date End Date Rosalba Shin MD [address] [place] [address] PCP - General Family Medicine 12/26/20 documented as of this encounter
--- OUTSIDE RECORDS SUMMARY | 2024-12-16 11:18 | XMS_ITS | Encounter Summary ---
Author Organization [employer] Address 75 [facility] 7t [place] [address] Care Team Providers Care Pigs Feet Cleaner Name Role Phone Rosalba Shin MD Primary Care Provide r Reason for Visit * Reason Comments Med Refill Encounter Details Date Type Department Care Team ([facility] st Contact Info) Description 12/02/2024 Refill [facility] MED[facility] [address] [place], [place] [phone] Ofelia Wright, ANP [address] [place], [place] [phone] Type 2 diabetes mellitus without complication, without long-term current use of insulin ([facility]) Social History Tobacco Use Types Packs/Day [...] Description 12/22/2024 11:30 AM EST Clinical Support [facility] [address] [place] [address] Jeannette [place], RN documented as of this encounter Visit Diagnoses Diagnosis Type 2 diabetes mellitus without complication, without long-term current use of insulin ([facility]) documented in this encounter Additional Health Concerns Assessment Noted Time PHQ-9 Depression Total Score: 0 08/12/20 24 11:42 AM EDT documented as of this encounter Care Teams Pigs Feet Cleaner Relationship Specialty Start Date End Date Rosalba Shin MD [address] [place] [address] PCP - General Family Medicine 12/26/20 documented as of this encounter
--- OUTSIDE RECORDS SUMMARY | 2024-12-16 11:18 | XMS_ITS | Encounter Summary ---
Author Organization [employer] Address 75 [facility] 7t [place] [address] Care Team Providers Care Search Engine Marketing Manager Name Role Phone Rosalba Shin MD Primary Care Provide r Reason for Visit * Reason Onset Date Comments Recommend TANK CHARGER Tier 2 12/06/2024 Encounter Details Date Type Department Care Team ([facility] st Contact Info) Description 12/06/2024 Telephone [facility] MED[facility]INE [address] [place] [address] Jeannette [place], KARLENE Recommend TANK CHARGER Tier 2 Social History Tobacco Use Types [...] RN - 12/06/2024 7:54 AM EST What TANK CHARGER Tier would you like this patient to be? I recommend Tier 2, please let me know if you agree or would rather patient be in another TANK CHARGER Tier. Tier 1 = HIGH RISK, Monthly TANK CHARGER visits Tier 2 = MODerate RISK, Q3 Month visits Tier 3 = LOW RISK = Q4-6 month visits documented in this encounter Plan of Treatment Upcoming Encounters Date Type Department Care Team (Late st Contact Info) Description 12/22/2024 11:30 AM EST Clinical Support [facility] MED[facility] [address] [place] [address] Jeannette [place], RN documented as of this encounter Visit Diagnoses Not on filedocumented in this encounter Additional Health Concerns Assessment Noted Time PHQ-9 Depression Total Score: 0 08/12/20 24 11:42 AM EDT documented as of this encounter Care Teams Search Engine Marketing Manager Relationship Specialty Start Date End Date Rosalba Shin MD [address] [place] [address] PCP - General Family Medicine 12/26/20 documented as of this encounter
--- OUTSIDE RECORDS SUMMARY | 2024-12-16 11:18 | XMS_ITS | Encounter Summary ---
Author Organization [employer] Address 75 [facility] 7t [place] [address] Care Team Providers Care Radiation Monitor Name Role Phone Rosalba Shin MD Primary Care Provide r Reason for Visit * Reason Comments Med Refill Encounter Details Date Type Department Care Team ([facility] st Contact Info) Description 12/02/2024 Refill [facility] [address] [place], [place] [phone] Alban Diaz MD [address] [place], [place] [phone] Folliculitis Social History Tobacco Use Types Packs/Day [...] Description 12/22/2024 11:30 AM EST Clinical Support [facility] [address] [place] [address] Jeannette [place], RN documented as of this encounter Visit Diagnoses Diagnosis Folliculitis Other specified disease of hair and hair follicles documented in this encounter Additional Health Concerns Assessment Noted Time PHQ-9 Depression Total Score: 0 08/12/20 24 11:42 AM EDT documented as of this encounter Care Teams Radiation Monitor Relationship Specialty Start Date End Date Rosalba Shin MD [address] [place] [address] PCP - General Family Medicine 12/26/20 documented as of this encounter
--- OUTSIDE RECORDS SUMMARY | 2024-12-16 11:18 | XMS_ITS | Encounter Summary ---
Author Organization [employer] Address [address] [facility] 7t [place] [address] Care Team Providers Care Senior Engineering Technician Name Role Phone Rosalba Shin MD Primary Care Provide r Encounter Details Date Type Department Care Team ([facility] st Contact Info) Description 12/06/2024 6:40 PM EST Office Visit [facility] [address] [place], [place] [phone] Hernán Worley MD [address] [place], [place] [phone] Left-sided chest pain (Primary Dx) Social History [...] - ECG 12 lead Patient presents to [facility] due to left-sided chest pain started last night at rest Pain has been waxing and waning Radiating to her back EKG shows LAD and pseudo-normalization of T-waves in lead III Discussed further management Discussed with [facility] to coordinate care Patient understands and agrees with the plan Ambulance called for transport O2 support provided while waiting for the ambulance documented in this encounter Plan of Treatment Upcoming Encounters Date Type Department Care Team (Late st Contact Info) Description 12/22/2024 11:30 AM EST Clinical Support [facility] [address] [place] [phone] Jeannette Thomas RN documented as of this [...] lead III compared to 06/2024 EKG from [facility]. us Hernán Worley MD ECG ORDERABLES Final Result documented in this encounter Visit Diagnoses Diagnosis Left-sided chest pain- Primary documented in this encounter Additional Health Concerns Assessment Noted Time PHQ-9 Depression Total Score: 0 08/12/20 24 11:42 AM EDT documented as of this encounter Care Teams Senior Engineering Technician Relationship Specialty Start Date End Date Rosalba Shin MD [address] [place] [phone] PCP - General Family Medicine 12/26/20 documented as of this encounter
--- OUTSIDE RECORDS SUMMARY | 2024-12-16 11:18 | XMS_ITS | Clinical Summary ---
Author Organization [employer] Address 75 [facility] 7t [place] [address] Care Team Providers Care Bog Cutter Name Role Phone Rosalba Shin MD Primary [...] buttocks. 03/16/20 20 Active Deep Sea Nasal [place] 0.65 % nasal sprayIndication s:Viral pharyngitis SPRAY [...] complication, without long-term current use of insulin ([facility]) 1 each 2 times daily. 1 kit 09/07/20 Active Lancets miscIndications :Type 2 diabetes mellitus without complication, without long-term current use of insulin ([facility]) 1 each 2 times daily. 100 each [...] complication, without long-term current use of insulin ([facility]) USE DIRECTED TO TEST BLOOD SUGAR TWICE [...] complication, without long-term current use of insulin ([facility]) USE TO TEST BLOOD SUGAR TWICE DAILY [...] complication, without long-term current use of insulin ([facility]) 1 each 2 times daily. 100 each [...] Type Department Care Team Description 12/07/2024 Refill [facility] [address] [place] [phone] Rosalba Shin MD Moderate persistent asthma, unspecified whether complicated 12/06/2024 6:40 PM EST Office Visit [facility] [address] [place] [phone] Hernán Worley MD Left-sided chest pain (Primary Dx) 12/06/2024 Orders Only GENERIC EXTERNAL DATA DEPARTMENT Provider, Generic External Data 12/06/2024 Telephone [facility] [address] [place] [phone] Jeannette Thomas, RN NCNS for STEAM FITTER RV appt today 12/06/2024 Telephone [facility] [address] [place] [address] Jeannette Thomas, KARLENE Recommend STEAM FITTER Tier 2 12/02/2024 1:30 PM EST Office Visit [facility] [address] [place] [address] Fly Salgado DDS Dental abscess (Primary Dx) 12/02/2024 Refill [facility] [address] [place] [address] Gino Browning MD 12/02/2024 Refill [facility] [address] [place] [address] Alban Diaz MD Folliculitis 12/02/2024 Refill [facility] [address] [place] [phone] Ofelia Wright ANP Type 2 diabetes mellitus without complication, without long-term current use of insulin ([facility]) 12/02/2024 Refill [facility] [address] [place] [address] Maria L Navarro MD Hypothyroidism, unspecified type; Iron deficiency anemia, unspecified iron deficiency anemia type; Type 2 diabetes mellitus without complication, without long-term current use of insulin ([facility]); Folliculitis; Pain; Chronic low back pain, unspecified back pain laterality, unspecified whether sciatica present; Rash; Mild intermittent asthma with exacerbation 12/02/2024 Refill [facility] [address] [place] [address] Rosalba Shin MD Fibromyalgia; Primary insomnia; Chronic low back pain, unspecified back pain laterality, unspecified whether sciatica present; Pain; Rash; Mild intermittent asthma with exacerbation 11/25/2024 1:00 PM EST Office Visit [facility] [address] [place] [phone] Aidee Miller, RUDDY Type 2 diabetes mellitus without ophthalmic manifestations ([facility]/HCC) (Primary Dx); 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; Lamellar macular hole of right eye; Dry eyes, bilateral; Presbyopia 11/25/2024 Travel 11/14/2024 3:40 PM EST Office Visit [facility] [address] [place] [address] Gino Browning MD Subacute cough (Primary Dx); Exacerbation of asthma, unspecified asthma severity, unspecified whether persistent 11/14/2024 Travel 11/08/2024 11:00 AM EST Office Visit [facility] [address] [place] [address] Rosalba Shin MD Moderate persistent asthma, unspecified whether complicated (Primary Dx); Type 2 diabetes mellitus without complication, without long-term current use of insulin ([facility]); Fibromyalgia; Rash; Dry eye 11/08/2024 Travel 11/02/2024 Travel 10/07/2024 Refill [facility] [address] [place] [address] Rosalba Shin MD Mild intermittent asthma with exacerbation; Primary insomnia 10/06/2024 10:00 AM EST Clinical Support [facility] [address] [place] [address] Jeannette Thomas RN Chronic low back pain, unspecified back pain laterality, unspecified whether sciatica present (Primary Dx) 10/06/2024 Refill [facility] [address] [place] [address] Jeannette Thomas RN Fibromyalgia 10/06/2024 Travel 09/27/2024 Patient Outreach [facility] [address] [place] [address] Rosalba Shin MD Pre-visit Planning ([facility] screening completed on 06/20/2024) from Last [...] 12/22/2024 11:30 AM EST Clinical Support [address] [address] Jeannette Thomas, RN Health Maintenance Due Date [...] complication, without long-term current use of insulin ([facility]) POCT JUVE-14 URINE DRUG SCREEN Routine 10/06/2024 10:16 AM EST Chronic low back pain, unspecified back pain laterality, unspecified whether sciatica present LIPID PANEL WITH REFLEX TO DIRECT LDL Routine 07/13/2024 3:15 PM EDT Type 2 diabetes mellitus without complication, without long-term current use of insulin ([facility]) Essential hypertension ALBUMIN, RANDOM URINE W/CREATININE Routine 07/13/2024 12:00 AM EDT Type 2 diabetes mellitus without complication, without long-term current use of insulin ([facility]/HCC) POCT GLYCATED HEMOGLOBIN, TOTAL Routine 07/04/2024 1:36 [...] EST Narrative 12/06/2024 7:15 PM EST ? [facility] ?[address] ?[place] [address] ?XRay Report ? Signed ? Patient: Gutierrez,Kerline ?MR#: [id number] ? : 1965 ?Acct:[id number] ? Age/Sex: 59 / F ?ADM Date: 01/21/25 ? Loc: HO.ED ? Attending Dr: ? Ordering Physician: Madhavi Carvalho ?? Date of Service: 12/06/24 ?? Procedure(s): XR chest 2V ?? Accession Number(s): [id number] ? cc: Rosalba Shin MD; Madhavi Carvalho [...] ? DD/ 12 ? TD/TT: 12/06/241912 ? Warehouse Operator: ? Procedure Note Later, Image - 12/06/2024 [place] [address] XRay Report Signed Patient: Diana Gutierrez#: [id number] : 1965Acct:[id number] Age/Sex: 59 / FADM Date: 12/06/24 Loc: HO.ED Attending Dr: Ordering Physician: Madhavi Carvalho Date of Service: 12/06/24 Procedure(s): XR chest 2V Accession Number(s): [id number] cc: Rosalba Shin MD; Madhavi Carvalho CLINICAL [...] in OV> 12/06/241913 DD/ 12 TD/TT: 12/06/241912 Warehouse Operator: [facility] External Provider IMG XR PROCEDURES Final Result * High Sensitivity Troponin I (12/06/2024 6:14 PM EST) Pathologist [facility] TROPONIN I HIGH SENSITIVITY <2.7 <3.5 - 17.0 ng/L [facility] Comment:The Goel high sens itivity Troponin-I results should beused in conjunction with other diagnostic information suchas ECG, clinical observations and information, and patientsymptoms to aid in the diagnosis of [place]. 12/06/2024 6:14 PM EST 12/06/2024 6:17 PM EST Generic External Data Provider LAB BLOOD ORDERAB LES Final Result Performing Organization Address [facility] Co de Phone Number [facility] [address] [place] [phone] * SARS-CoV-2 RNA, Influenza A/B, and RSV RNA, Ql NAAT (12/06/2024 6:14 PM EST) [facility] Influenza A PCR NEGATIVE Negative [facility] Influenza B PCR NEGATIVE Negative [facility] Resp Syncy Virus RNA Qual PCR NEGATIVE Negative [facility] SARS COV2 PCR NEGATIVE Negative [facility] Comment:All test results mus t [...] use by authorized laboratories.Testing performed on the [employer] GeneXpert utilizingreal-time RT-PCR.All SARS CoV2 and positive influenza A/B results arereported to [facility]. 12/06/2024 6:14 PM EST 12/06/2024 6:17 PM EST us Generic External Data Provider LAB MICROBIOLOGY - GENERAL ORDERABLES Final Result Performing Organization Address City/[facility]/ZIP Co de Phone Number [facility] [address] [place], [place] [phone] * (ABNORMAL) CBC auto differential (12/06/2024 6:14 PM EST) White Blood Count 6.9 4.8 - 10.8 X10*3/uL [facility] Red Blood Count 4.69 4.20 - 5.50 X10*6/uL [facility] Hemoglobin 13.8 12.0 - 16.0 g/dl [facility] Hematocrit 40.3 37.0 - 47.0 % [facility] Mean Corpuscular Volume 85.9 80.0 - 98.0 fL [facility] Mean Corpuscular Hemoglobin 29.4 27.0 - 33.0 pg [facility] Mean Corpuscular HGB Conc 34.2 31.0 - 35.0 g/dl [facility] Red Cell Distribution Width 12.9 11.0 - 16.0 % [facility] Platelet Count 267 160 - 400 X10*3/uL [facility] Mean Platelet Volume 10.5 9.4 - 12.3 fL [facility] Neutrophils Percent Auto 50.1 45 - 73 % [facility] Imm Gran Pct Auto 0.6(H) 0.0 - 0.4 % [facility] Lymphocytes Percent Auto 36.3 20 - 40 % [facility] Monocytes Percent Auto 10.1 2 - 11 % [facility] Eosinophils Percent Auto 2.5 0 - 4 % [facility] Basophils Percent Auto 0.4 0 - 2 % [facility] NRBC Pct Auto 0.0 0.0 - 0.2 /100WBC [facility] Neutrophils Absolute Auto 3.5 2.0 - 8.3 x10*3/uL [facility] Imm Gran Abs Auto 0.04(H) 0.00 - 0.03 X10*3/uL [facility] Lymphocytes Absolute Auto 2.5 1.2 - 4.9 X10*3/uL [facility] Monocytes Absolute Auto 0.7 0.1 - 1.2 X10*3/uL [facility] Eosinophils Absolute Auto 0.2 0.0 - 0.4 X10*3/uL [facility] Basophils Absolute Auto 0.0 0.0 - 0.2 X10*3/uL [facility] NRBC Abs Auto 0.000 0.0 - 0.012 X10*3/uL [facility] 12/06/2024 6:14 PM EST 12/06/2024 6:17 PM EST Generic External Data Provider LAB BLOOD ORDERAB LES Final Result Performing Organization Address City/[facility]/ZIP Co de Phone Number [facility] [address] [place] [phone] * Magnesium (12/06/2024 6:14 PM EST) Magnesium 1.7 1.6 - 2.6 mg/dL [facility] 12/06/2024 6:14 PM EST 12/06/2024 6:17 PM EST Generic External Data Provider LAB BLOOD ORDERAB LES Final Result Performing Organization Address [facility] Co de Phone Number [facility] [address] [place] [phone] * (ABNORMAL) Hepatic Function Panel (12/06/2024 6:14 PM EST) Bilirubin, Total 0.6 0.0 - 1.0 mg/dL [facility] Bilirubin, Direct 0.2 0.0 - 0.5 mg/dL [facility] Aspartate Amino Transferase 33(H) 5 - 31 U/L [facility] Alanine Aminotransferase 23 0 - 31 U/L [facility] Total Protein 8.1(H) 6.5 - 8.0 g/dL [facility] Albumin Level 4.1 3.5 - 5.0 g/dL [facility] Alkaline Phosphatase 74 39 - 117 U/L [facility] 12/06/2024 6:14 PM EST 12/06/2024 6:17 PM EST us Generic External Data Provider LAB BLOOD ORDERAB LES Final Result [facility] [address] [place] [phone] * (ABNORMAL) Basic Metabolic Panel (12/06/2024 6:14 PM EST) Sodium 139 135 - 145 mmol/L [facility] Potassium 3.7 3.3 - 5.1 mmol/L [facility] Chloride 103 96 - 108 mmol/L [facility] Carbon Dioxide 29 22 - 29 mmol/L [facility] Anion Gap 11(L) 12 - 20 [facility] Urea Nitrogen (BUN) 8(L) 9 - 16 mg/dL [facility] Creatinine, Serum 0.66 0.5 - 1.4 mg/dL [facility] Creatinine Clr Calc Pharmacy 103.6 [facility] Comment:Provided height and weight: 165.1 cm,91.2 kg.eGFR (calculated from the MDRD study equation) and eCrCl(calculated from the Cockcroft-Gault equation) are based ondifferent parameters and may not yield comparable results.If eCrCl result is absurd, please check patient'sheight/weight. Estimated Glomerular Filt Rate >60 [facility] Comment:Chronic Kidney Disea se: Estimated GFR < 60 mL/min/1.59y2Aozqlx Kidney Disease: Estimated GFR < 15 mL/min/1.73m2 Glucose 102 60 - 115 mg/dL [facility] Calcium 9.6 8.4 - 10.2 mg/dL [facility] 12/06/2024 6:14 PM EST 12/06/2024 6:17 PM EST us Generic External Data Provider LAB BLOOD ORDERAB LES Final Result [facility] [address] [place] [phone] [phone] * ECG 12 lead (12/06/2024 5:37 PM EST) Narrative Hernán Worley MD - 12/06/2024 5:37 PM EST NSR 98. No arrhythmia. LAD. Pseudo-normalization of T-waves in lead III compared to 06/2024 EKG from [facility]. Hernán Worley MD ECG ORDERABLES Final [...] (OS) Refer to retina for eval. Result [facility] Aidee Miller OD OPHTH TOMOGRAPHY Edited Result - Final * POCT Rapid Influenza B GOEL ID NOW (11/14/2024 3:45 PM EST) [facility] Influenza B Negative Negative, Indeterminate [facility] Swab 11/14/2024 3:45 PM EST Gino Browning MD POINT OF CARE TEST ENTER/EDIT OR DERABLES Final Result [facility] [address] [place] [address] [phone] * POCT Rapid Influenza A GOEL ID NOW (11/14/2024 3:45 PM EST) [facility] Influenza A Negative Negative, Indeterminate [facility] Swab 11/14/2024 3:45 PM EST Result Robbin Browning MD POINT OF CARE TEST ENTER/EDIT OR DERABLES Final Result [facility] [address] [place] [phone] * POCT Rapid Strep A GOEL ID NOW (11/14/2024 3:45 PM EST) [facility] Rapid Strep A Screen Negative Negative, None Detected Swab 11/14/2024 3:45 PM EST Result Robbin Browning MD POINT OF CARE TEST ENTER/EDIT OR DERABLES Final Result * POCT Rapid Covid-19 BinaxNOW (11/14/2024 3:45 PM EST) [facility] Rapid COVID Ag Negative Swab 11/14/2024 3:45 PM EST Result Robbin Browning MD POINT OF CARE TEST ENTER/EDIT OR DERABLES Final Result * POCT Glucose (11/08/2024 11:01 AM EST) [facility] Glucose Blood, POC 115 60 - 200 mg/dL QC Media Lot # [id number] Lot# Expiration Date [id number] Blood Capillary blood specimen / Unknown 11/08/2024 11:01 AM EST us Rosalba Kingsley MD POINT OF CARE TEST EN TER/EDIT ORDERABLES Final Result * POCT JUVE-14 Urine Drug Screen (10/06/2024 10:16 AM EST) [facility] TCA, Urine Positive Urine Urine specimen obtained by clean catch procedure / Unknown 10/06/2024 10:16 AM EST Jeannette Flores RN - 10/06/2024 10:16 AM EST UTOX cup Lot#[id number] Exp. 07/05/26 Internal Pass Control us Rosalba Kingsley MD POINT OF CARE TEST EN TER/EDIT ORDERABLES Final Result * (ABNORMAL) Lipid Panel with Reflex to Direct LDL (07/13/2024 3:15 PM EDT) Triglycerides 135 <150 mg/dL [facility] Comment:Desirable Triglyceri de: less than 150 mg/dLBorderline High Triglyceride 150-199 mg/dLHigh Triglyceride: 200-499 mg/dLVery High Triglyceride: greater than or equal to 5OO mg/dL Cholesterol 220(H) <200 mg/dL [facility] Comment:Desirable Cholestero l: less than 200 mg/dLBorderline High Cholesterol: 200-239 mg/dLHigh Cholesterol: greater than 239 mg/dL LDL Cholesterol Calculated 134(H) <100 mg/dL [facility] Comment:Desirable LDL: less than 100 mg/dLNear Optimal/Above Optimal LDL: 110- 129 mg/dLBorderline High LDL: 130-159 mg/dLHigh LDL: 160-189 mg/dLVery High LDL: greater than or equal to 190 mg/dL HDL Cholesterol 59 >40 mg/dL [facility] Comment:Desirable HDL: great er than 40 mg/dL Note: This HDL assay may give artificially low results in patients with liver disease. Blood 07/13/2024 3:15 PM EDT 07/13/2024 4:04 PM EDT us Rosalba Kingsley MD LAB BLOOD ORDERABLES Final Result [facility] [address] [place] [phone] * Albumin, Random Urine W/Creatinine (07/13/2024 12:00 AM EDT) Creatinine, Urine 115.51 mg/dL [facility] Microalbumin Urine 28.0 mg/L [facility] Microalbum Creatinine Ratio Ur 24.2 <30 ug/mg cr [facility] Comment:Albumin/Creatinine R atio Reference Ranges: Normal: < 30 ug/mg creatinine Microalbuminuria: 30 - 300 ug/mg creatinineClinical Albuminuria: > 300 ug/mg creatinine Urine (Urine, Random) 07/13/2024 07/13/2024 Roslaba Kingsley MD LAB URINE ORDERABLES Final Result [facility] [address] [place] [address] [phone] * POCT HGB A1C (07/04/2024 1:36 PM EDT) Hemoglobin A1C 6.0 4.0 - 6.0 % QC Media Lot # [id number] Lot# Expiration Date ,[id number] Blood 07/04/2024 1:36 PM EDT Rosalba Kingsley MD POINT OF CARE TEST EN TER/EDIT ORDERABLES Final Result * BI Mammogram Diagnostic Tomosynthesis Bilateral (02/12/2024 10:01 AM EDT) Anatomical Region Laterality Modality Breast Bilateral Mammography 02/12/2024 10:0 1 AM EDT Narrative 02/12/2024 12:05 PM EDT ? [facility] ? [address] ?[place] [address] ? Mammography Report ? Signed ? Patient: Gutierrez,Kerline ?MR#: [id number] ? : 1965 ?Acct:[id number] ? Age/Sex: 58 / F ?ADM Date: 03/29/24 ? Loc: HO.MAMMO ? Attending Dr: Rosalba Kingsley MD ? Ordering Physician: Rosalba Shin MD ?Results: ?? 2Benign Findings ? Date of Service: 02/12/24 ?Follow Up: 1 Year From Orig ?? inal Mammogram ? Procedure(s): MM tomosynthesis diagnostic BI ?? Accession Number(s): [id number] ? cc: Rosalba Shin MD ? EXAMINATION: [...] ? DD/DT: 02/11/ 1001 ? TD/TT: ? Warehouse Operator: ? Procedure Note Donotuseinterpreter, Image - 02/12/2024 [facility] [address] [place], [place] [address] Mammography Report Signed Patient: Diana Gutierrez#: [id number] : 1965Acct:[id number] Age/Sex: 58 / FADM Date: 02/12/24 Loc: HO.MAMMO Attending Dr: Rosalba Kingsley MD Ordering Physician: Rosalba Shin MDResults: 2Benign Findings Date of Service: 02/12/24Follow Up: 1 Year From Orig inal Mammogram Procedure(s): MM tomosynthesis diagnostic BI Accession Number(s): [id number] cc: Rosalba Shin MD EXAMINATION: MM DIAGNOSTIC [...] in OV> 02/12/24 1201 DD/ 1001 TD/TT: Warehouse Operator: us Rosalba Kingsley MD IMG BI PROCEDURES Arash jamaal Result - Final * Image-Guided Pap with Age-Based Screening??with CT/NG,??Trichomonas (09/22/2023 10:18 AM EST) Trichomonas (NAAT) NOT DETECTED NOT DETECTED [facility] Comment:The analytical perfo rmance characteristics of thisassay have been determined by [employer]. Themodifications have not been cleared or approved bythe FDA. This assay has been validated pursuant to theCLIA regulations and is used for clinical purposes.For additional information, please refer tohttp://education.[employer]/faq/Trichomonastma(This link is being provided for information/educational purposes only.)THIS TEST WAS PERFORMED AT:[facility] [address] [id number] GARCIA MD CTNG Ref Lab NOT DETECTED NOT DETECTED [facility] NG Ref Lab NOT DETECTED NOT DETECTED [facility] 09/22/2023 10:1 8 AM EST 09/23/2023 7:30 AM EST Rosalba Kingsley MD LAB CYTOLOGY ORDERABL ES Final Result Performing Organization Address [facility] Co de Phone Number [facility] [address] [place] [phone] * HPV mRNA E6/E7 w/Reflex to HPV Genotypes 16, 18/45 (09/22/2023 10:18 AM EST) HPV nRNA E6/E7 Not Detected Not Detected [facility] Comment:Methodology: Transcr iption-Mediated AmplificationThis assay detects E6/E7 viral messenger RNA (mRNA) from 14high-risk HPV types (16,18,31,33,35,39,45,51,52,56,58,59,66,68).Cervical sources are required for HPV testing.If a vaginal source from a patient who has had atotal hysterectomy with removal of cervix wassubmitted, please contact the testing laboratoryfor alternative testing options.For additional information, please refer tohttp://education.[employer]/faq/GGT408g1(This link if provided for information/educational purposes only.)THIS TEST WAS PERFORMED AT:[facility] [address] [address]KUBLQMAXIMUS GARCIA MD HPV mRNA E6/E7 [facility] HPV 16 RNA TNP [facility] HPV 18/45 RNA [facility] 09/22/2023 10:1 8 AM EST 09/23/2023 7:30 AM EST us Rosalba Kingsley MD LAB CYTOLOGY ORDERABL ES Final Result Performing Organization Address [facility]/ZIP Co de Phone Number [facility] [address] [place] [address] [phone] * Hm Colonoscopy (06/01/2018) Colonoscopy Normal Normal Narrative Aditi Durand - 06/01/2018 Recommended 10 year follow up us Historical Provider MD HEALTH MAINTENANCE Final Result from Last 3 Months or Most Recently Relevant to Health Maintenance Insurance [facility] [address] [place] [address] DENTAL-[facility] MEDICAID STAND ADULT [address] [place] [phone] Care Teams Bog Cutter Relationship Specialty Start Date End Date Rosalba Shin MD [address] [place] [phone] PCP - General Family Medicine 12/26/20
--- OUTSIDE RECORDS SUMMARY | 2024-12-16 11:18 | XMS_ITS | Encounter Summary ---
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 Aidee Miller, OD [address] [place] [address] Phone: tel: [place]: [place] [address] [place] [phone] Phone: tel: fax: Referral ID Status Reason Start Date Expiration Date V isits Requested Visits Authorized [id number] Closed Specialty Services Required 11/25/2024 11/25/2025 1 1 Encounter Details Date Type Department Care Team (Latest Contact Info) Description 11/25/2024 1:00 PM EST Office Visit [facility] [address] [place] [address] Aidee Miller, OD [address] [place] [address] Type 2 diabetes mellitus without ophthalmic manifestations [...] HOURS 90 tablet 1 Deep Sea Nasal [place] 0.65 % nasal spray SPRAY 2 SPRAYS [...] Severely titled with surroudning PPA, (-) NVD [place] and healthy, surrounding PPA (-) NVD C/D [...] 360 Refraction Manifest Refraction (Subjective) Sphere Cylinder [place] Dist [place] Add Right -1.00 Sphere 20/30+2 +2.50 Left +0.00 -0.25 180 20/25+2 +2.50 Manifest Refraction #2 (Auto) Sphere Cylinder [place] Dist [place] Add Right -1.50 -0.50 128 [...] PRN Aidee Miller, OD 11/28/2024, 1:04 PM Ranch Rider Source: __ None _x_ Bilingual Staff __ Qualified Staff Division Road Supervisor __ Telephone Ranch Rider; ID# __ Ranch Rider brought by patient (family member, friend, TWINE WINDER, etc) __ In person lumber driver __ Ipad Ranch Rider; ID#: Language Spoken During Exam: Faroese documented in this encounter Plan of Treatment Upcoming Encounters Date Type Department Care Team (Late st Contact Info) Description 12/22/2024 11:30 AM EST Clinical Support [facility] [address] [place] [address] Jeannette Thomsa RN Scheduled Referrals Name Type Priority Associated [...] documented as of this encounter Care Teams Recreation Activities Coordinator Relationship Specialty Start Date End Date Rosalba Shin MD [address] [place], [place] [phone] PCP - General Family Medicine 12/26/20 documented as of this encounter
--- OUTSIDE RECORDS SUMMARY | 2024-12-16 11:18 | XMS_ITS | Encounter Summary ---
Author Organization [employer] [facility] Address [address] [place] [address] 7t [place] [address] Care Team Providers Care Clarifying Plant Operator Name Role Phone Rosalba Shin MD Primary Care Provide r Reason for Visit * Reason Comments Med Refill Encounter Details Date Type Department Care Team ([facility] Contact Info) Description 03/17/2023 Refill [facility] [address] [place] [phone] Rosalba Shin MD [address] [place] [phone] Primary insomnia Social History Tobacco Use Types [...] 11:30 AM EST Clinical Support [facility] [address] [place] [phone] Jeannette Thomas RN documented as of this encounter Visit Diagnoses Diagnosis Primary insomnia Persistent disorder of initiating or maintaining sleep documented in this encounter Care Teams Clarifying Plant Operator Relationship Specialty Start Date End Date Rosalba Shin MD [address] [place] [phone] PCP - General Family Medicine 12/26/20 documented as of this encounter
--- OUTSIDE RECORDS SUMMARY | 2024-12-16 11:18 | XMS_ITS | Encounter Summary ---
Author Organization [employer] Address [address] [facility] 7t [place] [address] Care Team Providers Care Bullion Weigher Name Role Phone Rosalba Shin MD Primary Care Provide r Reason for Visit * Reason Comments Med Refill Encounter Details Date Type Department Care Team (Late st Contact Info) Description 12/02/2024 Refill [facility] [address] [place], [place] [phone] Maria L Navarro MD [address] [place], [place] [phone] Hypothyroidism, unspecified type; Iron deficiency anemia, unspecified [...] Description 12/22/2024 11:30 AM EST Clinical Support [facility] [address] [place] [address] Jeannette Thomas RN documented as of this encounter Visit Diagnoses Diagnosis Hypothyroidism, unspecified type Iron deficiency anemia, unspecified iron deficiency anemia type Type 2 diabetes mellitus without complication, without long-term current use of insulin ([facility]) Folliculitis Other specified disease of [...] documented as of this encounter Care Teams Bullion Weigher Relationship Specialty Start Date End Date Rosalba Shin MD [address] [place] [address] PCP - General Family Medicine 12/26/20 documented as of this encounter
--- OUTSIDE RECORDS SUMMARY | 2024-12-16 11:18 | XMS_ITS | Encounter Summary ---
Author Organization [facility] Address [address] [place] [address] 7t [place] [address] Care Team Providers Care Cat Breeder Name Role Phone Rosalba Shin MD Primary Care Provide r Reason for Visit * Reason Comments Med Refill Encounter Details Date Type Department Care Team (Late st Contact Info) Description 03/10/2023 Refill [facility] [address] [place] [phone] Name, MD Gino [address] [place] [phone] Chronic low back pain, unspecified back pain [...] Description 12/22/2024 11:30 AM EST Clinical Support [facility] [address] [place] [phone] Jeannette Thomas RN documented as of this encounter Visit Diagnoses Diagnosis Chronic low back pain, unspecified back pain laterality, unspecified whether sciatica present documented in this encounter Care Teams Cat Breeder Relationship Specialty Start Date End Date Rosalba Shin MD [address] [place] [address] PCP - General Family Medicine 12/26/20 documented as of this encounter
--- OUTSIDE RECORDS SUMMARY | 2024-12-16 11:18 | XMS_ITS | Encounter Summary ---
Author Organization [employer] Address [address] [facility] 7t [place] [address] Care Team Providers Care Tactical Response Group Officer Name Role Phone Rosalba Shin MD Primary [...] Description 12/22/2024 11:30 AM EST Clinical Support [facility] [address] [place] [address] Jeannette Thomas RN documented as of this encounter Visit Diagnoses Not on filedocumented in this encounter Additional Health Concerns Assessment Noted Time PHQ-9 Depression Total Score: 0 08/12/20 24 11:42 AM EDT documented as of this encounter Care Teams Tactical Response Group Officer Relationship Specialty Start Date End Date Rosalba Shin MD [address] [place] [address] PCP - General Family Medicine 12/26/20 documented as of this encounter
--- OUTSIDE RECORDS SUMMARY | 2024-12-16 11:19 | XMS_ITS | Encounter Summary ---
Author Organization [employer] Address [address] [facility] 7t [place] [address] Care Team Providers Care Consulting Senior Practice Director Name Role Phone Rosalba Shin MD Primary Care Provide r Encounter Details Date Type Department Care Team (Late st Contact Info) Description 08/26/2023 Abstract [facility] [address] [place] [address] Rosalba Shin MD [address] [place] [address] Social History Tobacco Use Types Packs/Day Years [...] t he electric, gas, oil or water [employer] threatened to shut off services in your [...] Description 12/22/2024 11:30 AM EST Clinical Support [facility] [address] [place] [address] Jeannette Thomas RN documented as of this [...] documented as of this encounter Care Teams Consulting Senior Practice Director Relationship Specialty Start Date End Date Rosalba Shin MD [address] [place] [address] PCP - General Family Medicine 12/26/20 documented as of this encounter
--- OUTSIDE RECORDS SUMMARY | 2024-12-16 11:19 | XMS_ITS | Clinical Summary ---
Author Organization [facility] Address [address] [place] [address] Care Team Providers Care Retail Sales Associate Bilingual Name Role Phone Unavailable Primary Care Provider [...] (1 of 3 - 19+ 3-dose series) 10/16 Pneumococcal Vaccines 50+ (1 of 1 - PCV) 2016 Zoster (Shingles) Vaccine (1 of 2) 2016 COVID-19 Vaccine ( - 2023- season) 2024
== END 2024-12-16 10:35 | disposition home or self-care (01) ==
LOC: HO.RESP 10:34
PROVIDERS: PCP Internal Medicine; Visit Provider Internal Medicine Pulmonary Disease
DX: R06.00 Dyspnea, unspecified (principal)
CPT/HCPCS: 94010; 94640; 94727; 94729

== ENCOUNTER → 2024-12-16 10:55 | Outpatient (BNV) | payer MEDICAID, SELFPAY | PROVIDERS: PCP Internal Medicine; Visit Provider Internal Medicine Pulmonary Disease | DX: J45.909 Unspecified asthma, uncomplicated (principal) | CPT/HCPCS: 94060; 94727; 94729 ==

== ENCOUNTER 2025-01-18 13:04 | Outpatient (REF) | payer MEDICAID, SELFPAY ==
[2025-01-18 15:54] LABS: Anion Gap 10 (12-20); Blood Urea Nitrogen 11 mg/dL (9-16); Calcium 9.8 mg/dL (8.4-10.2); Carbon Dioxide 29 mmol/L (22-29); Chloride 107 mmol/L (96-108); Estimated Glomerular Filt Rate > 60; Glucose Random 131 mg/dL (60-115); Potassium 4.3 mmol/L (3.3-5.1); Sodium 142 mmol/L (135-145)
--- OUTSIDE RECORDS SUMMARY | 2025-01-18 16:32 | XMS_ITS | Encounter Summary ---
Author Organization [employer] Address [address] [facility] [address] [place] [address] Care Team Providers Care [employer] Name Role Phone Rosalba Shin MD Primary Care Provide r Reason for Visit * Reason Comments Med Refill Encounter Details Date Type Department Care Team ([facility] st Contact Info) Description 12/02/2024 Refill [facility] [address] [place], [place] [phone] Ofelia Wright, ANP [address] [place], [place] [phone] Type 2 diabetes mellitus without complication, without long-term current use of insulin ([facility]) Social History Tobacco Use Types Packs/Day Years [...] Description 03/16/2025 1:45 PM EDT Office Visit [facility] [address] [place] [phone] Rosalba Shin MD [address] [place] [phone] 03/22/2025 11:30 AM EDT Clinical Support [address] [address] Jeannette Thomas RN documented as of this encounter Visit Diagnoses Diagnosis Type 2 diabetes mellitus without complication, without long-term current use of insulin ([facility]) documented in this encounter Additional Health Concerns Assessment Noted Time PHQ-9 Depression Total Score: 0 08/12/20 24 11:42 AM EDT documented as of this encounter Care Teams [employer] Relationship Specialty Start Date End Date Rosalba Shin MD [address] [place] [phone] PCP - General Family Medicine 12/26/20 documented as of this encounter
--- OUTSIDE RECORDS SUMMARY | 2025-01-18 16:32 | XMS_ITS | Clinical Summary ---
Author Organization [employer] Address [address] [facility] [address] [place] [address] Care Team Providers Care Consultant Name Role Phone Rosalba Shin MD Primary [...] buttocks. 03/16/20 20 Active Deep Sea Nasal Raphine 0.65 % nasal sprayIndication s:Viral pharyngitis SPRAY [...] complication, without long-term current use of insulin ([facility]) 1 each 2 times daily. 1 kit 09/07/20 Active Lancets miscIndications :Type 2 diabetes mellitus without complication, without long-term current use of insulin ([facility]) 1 each 2 times daily. 100 each [...] complication, without long-term current use of insulin ([facility]) USE DIRECTED TO TEST BLOOD SUGAR TWICE [...] complication, without long-term current use of insulin ([facility]) USE TO TEST BLOOD SUGAR TWICE DAILY 100 each 1 07/21/20 24 Active Dextromethorpha n-guaiFENesin (Mucinex DM) 30-600 MG tablet sustained-relea se 12 hour TAKE 1 TABLET BY MOUTH THREE TIMES DAILY 28 tablet 07/26/20 24 Active rosuvastatin (Crestor) 20 MG tabletIndicatio ns:Type 2 diabetes mellitus without complication, without long-term current use of insulin ([facility]) Take 1 tablet (20 mg) by mouth [...] complication, without long-term current use of insulin ([facility]) 1 each 2 times daily. 100 each [...] Type Department Care Team Description 01/18/2025 Refill [facility] [address] [place] [phone] Rosalba Shin MD Chronic low back pain, unspecified back pain laterality, unspecified whether sciatica present 01/12/2025 Refill [facility] [address] [place] [address] Rosalba Shin MD Fibromyalgia; Primary insomnia; Hot flashes due to menopause; Rash 01/03/2025 11:30 AM EST Clinical Support [facility] [address] [place] [phone] Jeannette Thomas RN Chronic low back pain, unspecified back pain laterality, unspecified whether sciatica present (Primary Dx) 01/03/2025 Travel 12/29/2024 Refill [facility] [address] [place] [phone] Rosalba Shin MD Essential hypertension 12/20/2024 Telephone [facility] [address] [place] [phone] Joya Hauser [place] February12/07/2024 Refill [facility] [address] [place] [phone] Rosalba Shin MD Moderate persistent asthma, unspecified whether complicated 12/06/2024 6:40 PM EST Office Visit [facility] [address] [place] [phone] Hernán Worley MD Left-sided chest pain (Primary Dx) 12/06/2024 Orders Only GENERIC EXTERNAL DATA DEPARTMENT Provider, Generic External Data 12/06/2024 Telephone [facility] [address] [place] [address] [phone] Jeannette Thomas RN NCNS for BUILDING MAINTENANCE CUSTODIAN RV appt today 12/06/2024 Telephone [facility] [address] [place] [address] [phone] Jeannette Thomas RN Recommend BUILDING MAINTENANCE CUSTODIAN Tier 2 12/02/2024 1:30 PM EST Office Visit [facility] AD[facility]ENT[facility] [address] [place], [place] [phone] Fly Salgado DDS Dental abscess (Primary Dx) 12/02/2024 Refill [facility] [address] [place] [address] [phone] Gino Browning MD 12/02/2024 Refill [facility] [address] [place] [address] [phone] Alban Diaz MD Folliculitis 12/02/2024 Refill [facility] [address] [place] [address] [phone] Ofelia Wright ANP Type 2 diabetes mellitus without complication, without long-term current use of insulin ([facility]) 12/02/2024 Refill [facility] [address] [place] [address] [phone] Maria L Navarro MD Hypothyroidism, unspecified type; Iron deficiency anemia, unspecified iron deficiency anemia type; Type 2 diabetes mellitus without complication, without long-term current use of insulin ([facility]); Folliculitis; Pain; Chronic low back pain, unspecified back pain laterality, unspecified whether sciatica present; Rash; Mild intermittent asthma with exacerbation 12/02/2024 Refill [facility] [address] [place] [phone] Rosalba Shin MD Fibromyalgia; Primary insomnia; Chronic low back pain, unspecified back pain laterality, unspecified whether sciatica present; Pain; Rash; Mild intermittent asthma with exacerbation 11/25/2024 1:00 PM EST Office Visit [facility] [address] [place] [phone] Aidee Miller, OD Type 2 diabetes mellitus without ophthalmic manifestations ([facility]) (Primary Dx); 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; Lamellar macular hole of right eye; Dry eyes, bilateral; Presbyopia 11/25/2024 Travel 11/14/2024 3:40 PM EST Office Visit [facility] [address] [place] [address] [phone] Gino Browning MD Subacute cough (Primary Dx); Exacerbation of asthma, unspecified asthma severity, unspecified whether persistent 11/14/2024 Travel 11/08/2024 11:00 AM EST Office Visit [facility] [address] [place] [address] Rosalba Shin MD Moderate persistent asthma, unspecified whether complicated (Primary Dx); Type 2 diabetes mellitus without complication, without long-term current use of insulin ([facility]); Fibromyalgia; Rash; Dry eye 11/08/2024 Travel 11/02/2024 [...] Office Visit [facility] [address] [place] [phone] Rosalba Shin MD [address] [place] [phone] 03/22/2025 11:30 AM EDT Clinical Support [facility] [address] [place] [address] [phone] Jeannette Thomas RN Health Maintenance Due Date [...] Procedure Name Priority Date/Time Associated Diagnosis Comments BASIC METABOLIC PANEL Routine 01/18/2025 2:00 PM EST Hypokalemia POCT JUVE-14 URINE DRUG SCREEN Routine 01/03/2025 [...] complication, without long-term current use of insulin ([facility]) LIPID PANEL WITH REFLEX TO DIRECT LDL Routine 07/13/2024 3:15 PM EDT Type 2 diabetes mellitus without complication, without long-term current use of insulin ([facility]) Essential hypertension ALBUMIN, RANDOM URINE W/CREATININE Routine 07/13/2024 12:00 AM EDT Type 2 diabetes mellitus without complication, without long-term current use of insulin ([facility]) POCT GLYCATED HEMOGLOBIN, TOTAL Routine 07/04/2024 1:36 PM EDT Type 2 diabetes mellitus without complication, without long-term current use of insulin ([facility]) INTRAORAL - COMPLETE SERIES OF RADIOGRAPHIC IMAGES [...] Recently Relevant to Health Maintenance Results * (ABNORMAL) Basic Metabolic Panel (01/18/2025 2:00 PM EST) Only the most recent of2 resultswithin the time period is included. Sodium 142 135 - 145 mmol/L [facility] Potassium 4.3 3.3 - 5.1 mmol/L [facility] Chloride 107 96 - 108 mmol/L [facility] Carbon Dioxide 29 22 - 29 mmol/L [facility] Anion Gap 10(L) 12 - 20 [facility] Urea Nitrogen (BUN) 11 9 - 16 mg/dL [facility] Creatinine, Serum 0.57 0.5 - 1.4 mg/dL [facility] Estimated Glomerular Filt Rate >60 [facility] Comment:Chronic Kidney Disea se: Estimated GFR < 60 mL/min/1.60u3Jkcewx Kidney Disease: Estimated GFR < 15 mL/min/1.73m2 Glucose 131(H) 60 - 115 mg/dL [facility] Calcium 9.8 8.4 - 10.2 mg/dL [facility] Blood Venous blood specimen / Unknown 01/18/2025 2:00 PM EST 01/18/2025 2:00 PM EST us Rosalba Kingsley MD LAB BLOOD ORDERABLES Final Result [facility] [address] [place] [phone] * POCT JUVE-14 Urine Drug Screen (01/03/2025 11:37 AM EST) TCA, Urine Positive Urine Urine specimen obtained by clean catch procedure / Unknown 01/03/2025 11:37 AM EST Narrative Jeannette Thomas RN - 01/03/2025 11:37 AM EST UTOX cup Lot#[id number] Exp. 07/05/26 Internal Pass Control us Rosalba Kingsley MD POINT OF CARE TEST EN TER/EDIT ORDERABLES Final Result * XR Chest 2 Views (12/06/2024 7:13 PM EST) Anatomical Region Laterality Modality Chest Radiographic Sheila ging 12/06/2024 7:13 PM EST Narrative 12/06/2024 7:15 PM EST ? [facility] ?[address] ?[place] [address] ?XRay Report ? Signed ? Patient: Gutierrez,Kerline ?MR#: [id number] ? : 1965 ?Acct:[id number] ? Age/Sex: 59 / F ?ADM Date: 01/21/25 ? Loc: HO.ED ? Attending Dr: ? Ordering Physician: Madhavi Carvalho ?? Date of Service: 12/06/24 ?? Procedure(s): XR chest 2V ?? Accession Number(s): [id number] ? cc: Rosalba Shin MD; Madhavi Carvalho [...] ? DD/ 12 ? TD/TT: 12/06/241912 ? Fleet Service Manager: ? Procedure Note Flavia, Pauline - 12/06/[address] [address] XRay Report Signed Patient: Diana Gutierrez#: [id number] : 1965Acct:[id number] Age/Sex: 59 / FADM Date: 12/06/24 Loc: HO.ED Attending Dr: Ordering Physician: Madhavi Carvalho Date of Service: 12/06/24 Procedure(s): XR chest 2V Accession Number(s): [id number] cc: Rosalba Shin MD; Madhavi Carvalho CLINICAL [...] in OV> 12/06/241913 DD/ 12 TD/TT: 12/06/241912 Fleet Service Manager: [facility] External Provider IMG XR PROCEDURES Final Result * High Sensitivity Troponin I (12/06/2024 6:14 PM EST) Pathologist [facility] TROPONIN I HIGH SENSITIVITY <2.7 <3.5 - 17.0 ng/L [facility] Comment:The Goel high sens itivity Troponin-I results should beused in conjunction with other diagnostic information suchas ECG, clinical observations and information, and patientsymptoms to aid in the diagnosis of GA. 12/06/2024 6:14 PM EST 12/06/2024 6:17 PM EST Generic External Data Provider LAB BLOOD ORDERAB LES Final Result Performing Organization Address City/State/[facility] Co de Phone Number [facility] [address] [place] [phone] * SARS-CoV-2 RNA, Influenza A/B, and RSV RNA, Ql NAAT (12/06/2024 6:14 PM EST) [facility] Influenza A PCR NEGATIVE Negative [facility] Influenza B PCR NEGATIVE Negative [facility] Resp Syncy Virus RNA Qual PCR NEGATIVE Negative [facility] SARS COV2 PCR NEGATIVE Negative [...] use by authorized laboratories.Testing performed on the [employer] GeneXpert utilizingreal-time RT-PCR.All SARS CoV2 and positive influenza A/B results arereported to [facility]. 12/06/2024 6:14 PM EST 12/06/2024 6:17 PM EST us Generic External Data Provider LAB MICROBIOLOGY - GENERAL ORDERABLES Final Result [facility] [address] [place] [address] [phone] * (ABNORMAL) CBC auto differential (12/06/2024 6:14 PM EST) White Blood Count 6.9 4.8 - 10.8 X10*3/uL [facility] Red Blood Count 4.69 4.20 - 5.50 X10*6/uL [facility] Hemoglobin 13.8 12.0 - 16.0 g/dl [facility] Hematocrit 40.3 37.0 - 47.0 % [facility] Mean Corpuscular Volume 85.9 80.0 - 98.0 fL [facility] Mean Corpuscular Hemoglobin 29.4 27.0 - 33.0 pg [facility] Mean Corpuscular HGB Conc 34.2 31.0 - 35.0 g/dl [facility] Red Cell Distribution Width 12.9 11.0 - 16.0 % [facility] Platelet Count 267 160 - 400 X10*3/uL [facility] Mean Platelet Volume 10.5 9.4 - 12.3 fL [facility] Neutrophils Percent Auto 50.1 45 - 73 % [facility] Imm Gran Pct Auto 0.6(H) 0.0 - 0.4 % [facility] Lymphocytes Percent Auto 36.3 20 - 40 % [facility] Monocytes Percent Auto 10.1 2 - 11 % [facility] Eosinophils Percent Auto 2.5 0 - 4 % [facility] Basophils Percent Auto 0.4 0 - 2 % [facility] NRBC Pct Auto 0.0 0.0 - 0.2 /100WBC [facility] Neutrophils Absolute Auto 3.5 2.0 - 8.3 x10*3/uL [facility] Imm Gran Abs Auto 0.04(H) 0.00 - 0.03 X10*3/uL [facility] Lymphocytes Absolute Auto 2.5 1.2 - 4.9 X10*3/uL [facility] Monocytes Absolute Auto 0.7 0.1 - 1.2 X10*3/uL [facility] Eosinophils Absolute Auto 0.2 0.0 - 0.4 X10*3/uL [facility] Basophils Absolute Auto 0.0 0.0 - 0.2 X10*3/uL [facility] NRBC Abs Auto 0.000 0.0 - 0.012 X10*3/uL [facility] 12/06/2024 6:14 PM EST 12/06/2024 6:17 PM EST Generic External Data Provider LAB BLOOD ORDERAB LES Final Result Performing Organization Address [facility]/ZIP Co de Phone Number [facility] [address] [place] [address] [phone] * Magnesium (12/06/2024 6:14 PM EST) [facility] Magnesium 1.7 1.6 - 2.6 mg/dL [facility] 12/06/2024 6:14 PM EST 12/06/2024 6:17 PM EST Generic External Data Provider LAB BLOOD ORDERAB LES Final Result Performing Organization Address [facility] Co de Phone Number [facility] [address] [place] [address] [phone] * (ABNORMAL) Hepatic Function Panel (12/06/2024 6:14 PM EST) Pathologist [facility] Bilirubin, Total 0.6 0.0 - 1.0 mg/dL [facility] Bilirubin, Direct 0.2 0.0 - 0.5 mg/dL [facility] Aspartate Amino Transferase 33(H) 5 - 31 U/L [facility] Alanine Aminotransferase 23 0 - 31 U/L [facility] Total Protein 8.1(H) 6.5 - 8.0 g/dL [facility] Albumin Level 4.1 3.5 - 5.0 g/dL [facility] Alkaline Phosphatase 74 39 - 117 U/L [facility] 12/06/2024 6:14 PM EST 12/06/2024 6:17 PM EST us Generic External Data Provider LAB BLOOD ORDERAB LES Final Result [facility] [address] [place] [address] [phone] * ECG 12 lead (12/06/2024 5:37 PM EST) Narrative Hernán Worley MD - 12/06/2024 5:37 PM EST NSR 98. No arrhythmia. LAD. Pseudo-normalization of T-waves in lead III compared to 06/2024 EKG from [facility]. us Hernán Worley MD ECG ORDERABLES Final [...] PM EST) Influenza B Negative Negative, Indeterminate [facility] Swab 11/14/2024 3:45 PM EST Result [facility] Gino Browning MD POINT OF CARE TEST ENTER/EDIT OR DERABLES Final Result Performing Organization Address City/[facility]/ZIP Co de Phone Number [facility] [address] [place] [phone] * POCT Rapid Influenza A GOEL ID NOW (11/14/2024 3:45 PM EST) [facility] Influenza A Negative Negative, Indeterminate [facility] Swab 11/14/2024 3:45 PM EST Result [facility] us Gino Browning MD POINT OF CARE TEST ENTER/EDIT OR DERABLES Final Result Performing Organization Address [facility] Co de Phone Number [facility] [address] [place] [address] [phone] * POCT Rapid Strep A GOEL ID NOW (11/14/2024 3:45 PM EST) [facility] Rapid Strep A Screen Negative Negative, None Detected Swab 11/14/2024 3:45 PM EST Result [facility] us Gino Browning MD POINT OF CARE TEST ENTER/EDIT OR DERABLES Final Result * POCT Rapid Covid-19 BinaxNOW (11/14/2024 3:45 PM EST) [facility] Rapid COVID Ag Negative Swab 11/14/2024 3:45 PM EST Result [facility] us Gino Browning MD POINT OF CARE TEST ENTER/EDIT OR DERABLES Final Result * POCT Glucose (11/08/2024 11:01 AM EST) [facility] Glucose Blood, POC 115 60 - 200 mg/dL [employer] Lot # [id number] Lot# Expiration Date Blood Capillary blood specimen / Unknown 11/08/2024 11:01 AM EST us Rosalba Kingsley MD POINT OF CARE TEST EN TER/EDIT ORDERABLES Final Result * (ABNORMAL) Lipid Panel with Reflex to Direct LDL (07/13/2024 3:15 PM EDT) Triglycerides 135 <150 mg/dL [facility] Comment:Desirable Triglyceri de: less than 150 mg/dLBorderline High Triglyceride 150-199 mg/dLHigh Triglyceride: 200-499 mg/dLVery High Triglyceride: greater than or equal to 5OO mg/dL Cholesterol 220(H) <200 mg/dL [facility] Comment:Desirable Cholestero l: less than 200 mg/dLBorderline High Cholesterol: 200-239 mg/dLHigh Cholesterol: greater than 239 mg/dL LDL Cholesterol Calculated 134(H) <100 mg/dL [facility] Comment:Desirable LDL: less than 100 mg/dLNear Optimal/Above Optimal LDL: 110- 129 mg/dLBorderline High LDL: 130-159 mg/dLHigh LDL: 160-189 mg/dLVery High LDL: greater than or equal to 190 mg/dL HDL Cholesterol 59 >40 mg/dL [facility] Comment:Desirable HDL: great er than 40 mg/dL Note: This HDL assay may give artificially low results in patients with liver disease. Blood 07/13/2024 3:15 PM EDT 07/13/2024 4:04 PM EDT us Rosalba Kingsley MD LAB BLOOD ORDERABLES Final Result [facility] [address] [place] [address] [phone] * Albumin, Random Urine W/Creatinine (07/13/2024 12:00 AM EDT) Creatinine, Urine 115.51 mg/dL [facility] Microalbumin Urine 28.0 mg/L [facility] Microalbum Creatinine Ratio Ur 24.2 <30 ug/mg cr [facility] Comment:Albumin/Creatinine R atio Reference Ranges: Normal: < 30 ug/mg creatinine Microalbuminuria: 30 - 300 ug/mg creatinineClinical Albuminuria: > 300 ug/mg creatinine Urine (Urine, Random) 07/13/2024 07/13/2024 Rosalba Kingsley MD LAB URINE ORDERABLES Final Result [facility] [address] [place] [address] [phone] * POCT HGB A1C (07/04/2024 1:36 PM EDT) Hemoglobin A1C 6.0 4.0 - 6.0 % [employer] Media Lot # [id number] Lot# Expiration Date [id number] Blood 07/04/2024 1:36 PM EDT us Rosalba Kingsley MD POINT OF CARE TEST EN TER/EDIT ORDERABLES Final Result * BI Mammogram Diagnostic Tomosynthesis Bilateral (02/12/2024 10:01 AM EDT) Anatomical Region Laterality Modality Breast Bilateral Mammography 02/12/2024 10:0 1 AM EDT Narrative 02/12/2024 12:05 PM EDT ? [facility] ? [address] ?[place] [address] ? Mammography Report ? Signed ? Patient: Gutierrez,Kerline ?MR#: [id number] ? : 1965 ?Acct:[id number] ? Age/Sex: 58 / F ?ADM Date: 03/29/24 ? Loc: HO.MAMMO ? Attending Dr: Rosalba Kingsley MD ? Ordering Physician: Rosalba Shin MD ?Results: ?? 2Benign Findings ? Date of Service: 02/12/24 ?Follow Up: 1 Year From Orig ?? inal Mammogram ? Procedure(s): MM tomosynthesis diagnostic BI ?? Accession Number(s): [id number] ? cc: Rosalba Shin MD ? EXAMINATION: [...] 1201 ? DD/ 1001 ? TD/TT: ? Fleet Service Manager: ? Procedure Note Flavia Image - 02/12/2024 [facility] [address] [place], [place] [address] Mammography Report Signed Patient: Diana Guteirrez#: [id number] : 1965Acct:[id number] Age/Sex: 58 / FADM Date: 02/12/24 Loc: HO.MAMMO Attending Dr: Rosalba Kingsley MD Ordering Physician: Rosalba Shin MDResults: 2Benign Findings Date of Service: 02/12/24Follow Up: 1 Year From Orig ina Mammogram Procedure(s): MM tomosynthesis diagnostic BI Accession Number(s): [id number] cc: Rosalba Shin MD EXAMINATION: MM DIAGNOSTIC [...] in OV> 02/12/24 1201 DD/ 1001 TD/TT: Fleet Service Manager: Rosalba Kingsley MD IMG BI PROCEDURES Arash jamaal Result - Final * Image-Guided Pap with Age-Based Screening??with CT/NG,??Trichomonas (09/22/2023 10:18 AM EST) Trichomonas (NAAT) NOT DETECTED NOT DETECTED [facility] Comment:The analytical perfo rmance characteristics of thisassay have been determined by [employer]. Themodifications have not been cleared or approved bythe FDA. This assay has been validated pursuant to theCLIA regulations and is used for clinical purposes.For additional information, please refer tohttp://education.[employer]/faq/Trichomonastma(This link is being provided for information/educational purposes only.)THIS TEST WAS PERFORMED AT:[facility] [address] [id number] GARCIA MD CTNG Ref Lab NOT DETECTED NOT DETECTED [facility] NG Ref Lab NOT DETECTED NOT DETECTED [facility] 09/22/2023 10:1 8 AM EST 09/23/2023 7:30 AM EST Rosalba Kingsley MD LAB CYTOLOGY ORDERABL ES Final Result Performing Organization Address [facility] Co de Phone Number [facility] [address] [place] [address] [phone] * HPV mRNA E6/E7 w/Reflex to HPV Genotypes 16, 18/45 (09/22/2023 10:18 AM EST) HPV nRNA E6/E7 Not Detected Not Detected [facility] Comment:Methodology: Transcr iption-Mediated AmplificationThis assay detects E6/E7 viral messenger RNA (mRNA) from 14high-risk HPV types (16,18,31,33,35,39,45,51,52,56,58,59,66,68).Cervical sources are required for HPV testing.If a vaginal source from a patient who has had atotal hysterectomy with removal of cervix wassubmitted, please contact the testing laboratoryfor alternative testing options.For additional information, please refer tohttp://education.[employer]/faq/FVP667v0(This link if provided for information/educational purposes only.)THIS TEST WAS PERFORMED AT:[facility] [address] [id number] GARCIA MD HPV mRNA E6/E7 TNP [facility] HPV 16 RNA TNP [facility] HPV 18/45 RNA [facility] 09/22/2023 10:1 8 AM EST 09/23/2023 7:30 AM EST us Rosalba Kingsley MD LAB CYTOLOGY ORDERABL ES Final Result Performing Organization Address [facility] Co de Phone Number [facility] [address] [place] [address] [phone] * Colonoscopy (06/01/2018) Colonoscopy Normal Normal Narrative Aditi Durand - 06/01/2018 Recommended 10 year follow up us Historical Provider MD HEALTH MAINTENANCE Final Result from Last 3 Months or Most Recently Relevant to Health Maintenance Insurance [facility] C3 DENTAL-[facility] MEDICAID STAND ADULT [address] [place] [id number] Care Teams Consultant Relationship Specialty Start Date End Date Rosalba Shin MD [address] [place] [address] [phone] PCP - General Family Medicine 12/26/20
--- OUTSIDE RECORDS SUMMARY | 2025-01-18 16:32 | XMS_ITS | Encounter Summary ---
Author Organization [employer] Address 75 [facility] 7t [place] [address] Care Team Providers Care Electronic Train Control Technician Name Role Phone Rosalba Shin MD Primary Care Provide r Reason for Visit * Reason Comments Med Refill Encounter Details Date Type Department Care Team ([facility] st Contact Info) Description 10/22/2023 Refill [facility] 230 [place], [place] [phone] Maria L Navarro MD 230 [place], [place] [phone] Chronic low back pain, unspecified back pain [...] Description 03/16/2025 1:45 PM EDT Office Visit [facility] [address] [place] [address] Rosalba Shin MD [address] [place] [address] 03/22/2025 11:30 AM EDT Clinical Support [address] [address] Jeannette Thomas RN documented as of this encounter Visit Diagnoses Diagnosis Chronic low back pain, unspecified back pain laterality, unspecified whether sciatica present documented in this encounter Additional Health Concerns Assessment Noted Time PHQ-9 Depression Total Score: 7 04/06/20 23 2:10 PM EDT documented as of this encounter Care Teams Electronic Train Control Technician Relationship Specialty Start Date End Date Rosalba Shin MD [address] [place] [address] PCP - General Family Medicine 12/26/20 documented as of this encounter
--- OUTSIDE RECORDS SUMMARY | 2025-01-18 16:32 | XMS_ITS | Encounter Summary ---
Author Organization [employer] Address 75 [facility] 7t [place] [address] Care Team Providers Care Patrol Inspector Name Role Phone Rosalba Shin MD Primary Care Provide r Reason for Visit * Reason Comments Med Refill Encounter Details Date Type Department Care Team ([facility] st Contact Info) Description 01/12/2025 Refill [facility] 230 [place], [place] [phone] Rosalba Shin MD 230 [place], [place] [phone] Fibromyalgia; Primary insomnia; Hot flashes due to [...] 03/16/2025 1:45 PM EDT Office Visit [facility] [address] [place] [address] Rosalba Shin MD [address] [place] [address] 03/22/2025 11:30 AM EDT Clinical Support [address] [address] Jeannette Thomas RN documented as of this [...] documented as of this encounter Care Teams Patrol Inspector Relationship Specialty Start Date End Date Rosalba Shin MD [address] [place] [phone] PCP - General Family Medicine 12/26/20 documented as of this encounter
--- OUTSIDE RECORDS SUMMARY | 2025-01-18 16:32 | XMS_ITS | Encounter Summary ---
Author Organization [employer] Address 75 [facility] 7t [place] [address] Care Team Providers Care Brazer Electronic Name Role Phone Rosalba Shin MD Primary Care Provide r Reason for Visit * Reason Comments Med Refill Encounter Details Date Type Department Care Team ([facility] st Contact Info) Description 12/29/2024 Refill [facility] MED[facility] 230 [place], [place] [phone] Rosalba Shin MD 230 [place], [place] [phone] Essential hypertension Social History Tobacco Use Types [...] Description 03/16/2025 1:45 PM EDT Office Visit [facility] [address] [place] [address] Rosalba Shin MD [address] [place] [address] 03/22/2025 11:30 AM EDT Clinical Support [facility] [address] [place] [address] Jeannette Thomas, RN documented as of this encounter Visit Diagnoses Diagnosis Essential hypertension Unspecified essential hypertension documented in this encounter Additional Health Concerns Assessment Noted Time PHQ-9 Depression Total Score: 0 08/12/20 24 11:42 AM EDT documented as of this encounter Care Teams Brazer Electronic Relationship Specialty Start Date End Date Rosalba Shin MD [address] [place] [phone] PCP - General Family Medicine 12/26/20 documented as of this encounter
--- OUTSIDE RECORDS SUMMARY | 2025-01-18 16:32 | XMS_ITS | Encounter Summary ---
Author Organization [employer] Address 75 [facility] 7t [place] [address] Care Team Providers Care Crusher Machine Operator Name Role Phone Rosalba Shin MD Primary Care Provide r Reason for Visit * Reason Comments SWAGING MACHINE OPERATOR RV SWAGING MACHINE OPERATOR RV Encounter Details Date Type Department Care Team (Latest Contact Info) Description 01/03/2025 11:30 AM EST Clinical Support [facility] MEDICINE 230 [place] [address] Jeannette Thomas RN Chronic low back pain, [...] 11:30 AM EST S: Pt here for SWAGING MACHINE OPERATOR Revisit, translation provided by staff member Sally [...] had all her upper teeth removed. O: SWAGING MACHINE OPERATOR Tier 2. Pt currently prescribed .Tramadol 50mg Q8hr PRN BOILER INSPECTOR verified today. Rx last filled on 12/06/24. [...] expected. Last PCP visit was 11/08/24. A: SWAGING MACHINE OPERATOR Revisit: Chronic Opioid use related to pain. P: Pt to continue taking medication only as prescribed; Next SWAGING MACHINE OPERATOR RV appointment scheduled for 03/22/25 @ 11:30a, F/U sooner PRN. Appointment reminder given. Pt verbalized understanding and agreed to plan. documented in this encounter Plan of Treatment Upcoming Encounters Date Type Department Care Team (Late st Contact Info) Description 03/16/2025 1:45 PM EDT Office Visit [address] [address] Rosalba Shin MD [address] [place] [address] 03/22/2025 11:30 AM EDT Clinical Support [address] [phone] Jeannette Thomas RN documented as of this [...] - 01/03/2025 11:37 AM EST [employer] cup Lot#[id number] Exp. 07/05/26 Internal Pass Control Rosalba Kingsley MD POINT OF CARE TEST EN TER/EDIT ORDERABLES Final Result documented in this encounter Visit Diagnoses Diagnosis Chronic low back pain, unspecified back pain laterality, unspecified whether sciatica present- Primary documented in this encounter Additional Health Concerns Assessment Noted Time PHQ-9 Depression Total Score: 0 08/12/20 11:42 AM EDT documented as of this encounter Care Teams Crusher Machine Operator Relationship Specialty Start Date End Date Rosalba Shin MD [address] [place] [address] PCP - General Family Medicine 12/26/20 documented as of this encounter
--- OUTSIDE RECORDS SUMMARY | 2025-01-18 16:32 | XMS_ITS | Encounter Summary ---
Author Organization [employer] Address 75 [facility] 7t [place] [address] Care Team Providers Care Technology Advisor Name Role Phone Rosalba Shin MD Primary Care Provide r Reason for Visit * Reason Onset Date Comments ALMA RECALL 12/20/2024 Encounter Details Date Type Department Care Team (Late st Contact Info) Description 12/20/2024 Telephone [facility] [address] [facility] [place], [place] [phone] Joya Hauser MA FEBRUARY RECALL Social History [...] 1:45 PM EDT Office Visit [facility] MED[facility]INE [address] [place] [address] Rosalba Shin MD [address] [place] [address] 03/22/2025 11:30 AM EDT Clinical Support [facility]INE [address] [place] [address] Jeannette Thoams RN documented as of this encounter Visit Diagnoses Not on filedocumented in this encounter Additional Health Concerns Assessment Noted Time PHQ-9 Depression Total Score: 0 08/12/20 24 11:42 AM EDT documented as of this encounter Care Teams Technology Advisor Relationship Specialty Start Date End Date Rosalba Shin MD [address] [place] [address] PCP - General Family Medicine 12/26/20 documented as of this encounter
--- OUTSIDE RECORDS SUMMARY | 2025-01-18 16:32 | XMS_ITS | Encounter Summary ---
Author Organization [employer] Address 75 [facility] 7t [place] [address] Care Team Providers Care Engraver Hand Hard Metals Name Role Phone Rosalba Shin MD Primary Care Provide r Reason for Visit * Reason Comments Med Refill Encounter Details Date Type Department Care Team ([facility] st Contact Info) Description 06/08/2024 Refill [facility] MEDICINE 230 [place], [place] [phone] Rosalba Shin MD 230 [place], [place] [phone] Fibromyalgia Social History Tobacco Use Types Packs/Day [...] 03/16/2025 1:45 PM EDT Office Visit [facility] MEDICINE [address] [place] [address] Rosalba Shin MD [address] [place] [address] 03/22/2025 11:30 AM EDT Clinical Support [address] [address] Jeannette Thomas, KARLENE documented as of this encounter Visit Diagnoses Diagnosis Fibromyalgia Unspecified myalgia and myositis documented in this encounter Additional Health Concerns Assessment Noted Time PHQ-9 Depression Total Score: 7 04/06/20 23 2:10 PM EDT documented as of this encounter Care Teams Engraver Hand Hard Metals Relationship Specialty Start Date End Date Rosalba Shin MD [address] [place] [address] PCP - General Family Medicine 12/26/20 documented as of this encounter
--- OUTSIDE RECORDS SUMMARY | 2025-01-18 16:32 | XMS_ITS | Encounter Summary ---
Author Organization [employer] [facility] Address [address] [place] [address] 7t [place] [address] Care Team Providers Care Motor Coach Driver Name Role Phone Rosalba Shin MD Primary Care Provide r Reason for Visit * Reason Comments Med Refill Encounter Details Date Type Department Care Team (Late Contact Info) Description 03/10/2023 Refill [facility] MED[facility]INE [address] [place] [address] [phone] Name, MD Gino [address] [place] [address] [phone] Chronic low back pain, unspecified back pain [...] Description 03/16/2025 1:45 PM EDT Office Visit [facility] [address] [place] [address] [phone] Rosalba Shin MD [address] [place] [address] 03/22/2025 11:30 AM EDT Clinical Support [facility] 230 [place] [address] Jeannette Thomas, KARLENE documented as of this encounter Visit Diagnoses Diagnosis Chronic low back pain, unspecified back pain laterality, unspecified whether sciatica present documented in this encounter Care Teams Motor Coach Driver Relationship Specialty Start Date End Date Rosalba Shin MD 230 [place] [address] PCP - General Family Medicine 12/26/20 documented as of this encounter
--- OUTSIDE RECORDS SUMMARY | 2025-01-18 16:32 | XMS_ITS | Encounter Summary ---
Author Organization [employer] Address 75 [facility] 7t [place] [address] Care Team Providers Care Travel Occupational Therapist Name Role Phone Rosalba Shin MD Primary Care Provide r Encounter Details Date Type Department Care Team (Late st Contact Info) Description 08/26/2023 Abstract [facility]INE 230 [place] [address] Rosalba Shin MD 230 [place] [address] Social History Tobacco Use Types Packs/Day Years [...] t he electric, gas, oil or water [employer] threatened to shut off services in your [...] Description 03/16/2025 1:45 PM EDT Office Visit [address] [phone] Rosalba Shin MD [address] [place] [address] 03/22/2025 11:30 AM EDT Clinical Support [address] [phone] Jeannette Thomas, RN documented as of this [...] documented as of this encounter Care Teams Travel Occupational Therapist Relationship Specialty Start Date End Date Rosalba Shin MD [address] [place] [address] [phone] PCP - General Family Medicine 12/26/20 documented as of this encounter
--- OUTSIDE RECORDS SUMMARY | 2025-01-18 16:32 | XMS_ITS | Encounter Summary ---
Author Organization [employer] [facility] Address [address] [place] [address] 7t [place] [address] Care Team Providers Care Accountant Auditor Name Role Phone Rosalba Shin MD Primary Care Provide r Reason for Visit * Reason Comments Med Refill Encounter Details Date Type Department Care Team (Late st Contact Info) Description 03/17/2023 Refill [facility] MEDICINE [address] [place] [address] [phone] Rosalba Shin MD [address] [place] [phone] Primary insomnia Social History Tobacco Use Types [...] Description 03/16/2025 1:45 PM EDT Office Visit [facility] [address] [place] [address] [phone] Rosalba Shin MD [address] [place] [address] [phone] 03/22/2025 11:30 AM EDT Clinical Support [facility] 230 [place] [address] Jeannette Thomas, RN documented as of this encounter Visit Diagnoses Diagnosis Primary insomnia Persistent disorder of initiating or maintaining sleep documented in this encounter Care Teams Accountant Auditor Relationship Specialty Start Date End Date Rosalba Shin MD 230 [place] [address] PCP - General Family Medicine 12/26/20 documented as of this encounter
--- OUTSIDE RECORDS SUMMARY | 2025-01-18 16:32 | XMS_ITS | Clinical Summary ---
Author Organization [facility] Address [address] [place] [address] Care Team Providers Care Cook Helper Meat Name Role Phone Unavailable Primary Care Provider [...]
--- OUTSIDE RECORDS SUMMARY | 2025-01-18 16:32 | XMS_ITS | Encounter Summary ---
Author Organization [employer] Address 75 [facility] 7t [place] [address] Care Team Providers Care Hydroelectric Systems Technician Name Role Phone Rosalba Shin MD Primary Care Provide r Reason for Visit * Reason Comments Med Refill Encounter Details Date Type Department Care Team ([facility] st Contact Info) Description 12/02/2024 Refill [facility] 230 [place], [place] [phone] Name, MD Gino [address] [place] [address] Social History Tobacco Use Types Packs/Day Years [...] Description 03/16/2025 1:45 PM EDT Office Visit [facility] MEDICINE [address] [place] [address] Rosalba Shin MD [address] [place] [address] 03/22/2025 11:30 AM EDT Clinical Support [address] [address] Jeannette Thomas, KARLENE documented as of this encounter Visit Diagnoses Not on filedocumented in this encounter Additional Health Concerns Assessment Noted Time PHQ-9 Depression Total Score: 0 08/12/20 24 11:42 AM EDT documented as of this encounter Care Teams Hydroelectric Systems Technician Relationship Specialty Start Date End Date Rosalba Shin MD [address] [place] [phone] PCP - General Family Medicine 12/26/20 documented as of this encounter
--- OUTSIDE RECORDS SUMMARY | 2025-01-18 16:32 | XMS_ITS | Encounter Summary ---
Author Organization [employer] Address 75 [facility] 7t [place] [address] Care Team Providers Care Extension Specialist Name Role Phone Rosalba Shin MD Primary Care Provide r Reason for Visit * Reason Comments Med Refill Encounter Details Date Type Department Care Team ([facility] st Contact Info) Description 01/18/2025 Refill [facility] MEDICINE 230 [place], [place] [phone] Rosalba Shin MD 230 [place] [address] Chronic low back pain, unspecified back pain [...] Description 03/16/2025 1:45 PM EDT Office Visit [facility] MEDICINE [address] [place] [address] Rosalba Shin MD [address] [place] [address] 03/22/2025 11:30 AM EDT Clinical Support [address] [address] Jeannette Thomas RN documented as of this encounter Visit Diagnoses Diagnosis Chronic low back pain, unspecified back pain laterality, unspecified whether sciatica present documented in this encounter Additional Health Concerns Assessment Noted Time PHQ-9 Depression Total Score: 0 08/12/20 24 11:42 AM EDT documented as of this encounter Care Teams Extension Specialist Relationship Specialty Start Date End Date Rosalba Shin MD [address] [place] [address] PCP - General Family Medicine 12/26/20 documented as of this encounter
--- OUTSIDE RECORDS SUMMARY | 2025-01-18 16:32 | XMS_ITS | Encounter Summary ---
Author Organization [employer] Address 75 [facility] 7t [place] [address] Care Team Providers Care Chemical Cell Changer Name Role Phone Rosalba Shin MD Primary [...] 1:45 PM EDT Office Visit [facility] [address] [place] [phone] Rosalba Shin MD [address] [place] [address] 03/22/2025 11:30 AM EDT Clinical Support [facility] [address] [place] [address] Jeannette Thomas, KARLENE documented as of this encounter Visit Diagnoses Not on filedocumented in this encounter Additional Health Concerns Assessment Noted Time PHQ-9 Depression Total Score: 0 08/12/20 24 11:42 AM EDT documented as of this encounter Care Teams Chemical Cell Changer Relationship Specialty Start Date End Date Rosalba Shin MD [address] [place] [address] PCP - General Family Medicine 12/26/20 documented as of this encounter
[2025-01-20 04:54] LABS: Class Alternaria alternata 0; Class Aspergillus fumigatus 0; Class Bermuda Grass 0; Class Birch 1; Class Cat Dander 0; Class Cladosporium herbarum 0; Class Cockroach 0; Class Common Ragweed 0; Class Cottonwood 1; Class Derm. pterony 0; Class Dermatophagoides farinae 0; Class Dog Dander 0; Class Elm 0; Class Maple Box Elder 0/1; Class Mountain Cedar 0; Class Mouse Urine Protein 0; Class Mugwort 0; Class Oak 0/1; Class Penicillium crysogenum 0; Class Rough Pigweed 0; Class Sheep Sorrel 0; Class Sycamore 0; Class Timothy Grass 0; Class Walnut Tree 0; Class White Ash 0; Class White Mulberry 0; D001 IgE D pteronyssinus <0.10 kU/L; D002 - IgE D farinae <0.10 kU/L; E001 - IgE Cat Dander <0.10 kU/L; E005 - IgE Dog Dander <0.10 kU/L; E072-IgE Mouse Urine <0.10 kU/L; G002 IgE Bermuda Grass <0.10 kU/L; G006 - IgE Timothy Grass <0.10 kU/L; I006-IgE Cockroach, German <0.10 kU/L; Immunoglobulin E 70 kU/L (<OR=114); M001 IgE Penicillium chrysogen <0.10 kU/L; M002 - IgE Cladosporium herbar <0.10 kU/L; M003 - IgE Aspergillus fumigat <0.10 kU/L; M006 - IgE Alternaria alternat <0.10 kU/L; T001 IgE Maple/Box Elder 0.14 kU/L; T006 - IgE Cedar, Mountain <0.10 kU/L; T007 - IgE Oak, White 0.23 kU/L; T008 IgE Elm, American <0.10 kU/L; T010 - IgE Walnut <0.10 kU/L; T011 - IgE Maple Leaf Sycamore <0.10 kU/L; T014 - IgE Cottonwood 0.55 kU/L; T015 - IgE Ash, White <0.10 kU/L; T070 - IgE White Mulberry <0.10 kU/L; W001 - IgE Ragweed, Short <0.10 kU/L; W006 - IgE Mugwort <0.10 kU/L; W014 IgE Pigweed, Common <0.10 kU/L; W018 IgE Sheep Sorrel <0.10 kU/L
== END 2025-01-18 13:05 | disposition home or self-care (01) ==
LOC: HO.LAB 13:04
PROVIDERS: PCP Internal Medicine; Visit Provider Internal Medicine Pulmonary Disease
DX: J45.909 Unspecified asthma, uncomplicated (principal); Z91.09 Other allergy status, other than to drugs and biological substances; E87.6 Hypokalemia; M06.9 Rheumatoid arthritis, unspecified
CPT/HCPCS: 36415; 80048; 82785; 86003; 99212

== ENCOUNTER 2025-01-18 13:04 | Outpatient (AMB) | payer MEDICAID, SELFPAY ==
[2025-01-18 13:14] VITALS: BP 132/77; PULSE 93; O2SAT 98; BMI 34.8
--- NOTE | 2025-01-18 13:14 | MHC.OFFVIS ---
Vital Signs 01/18/25 13:14 Height 5 ft 5 in Weight 209 lb BMI 34.8 BP 132/77 Blood Pressure Location Lt brachial Position Sitting Pulse 93 Pulse Source Doppler Pulse Oximetry (%) 98 Oxygen Delivery Method Room Air Intake Visit Reasons: Asthma/PFT Follow Up Fish Boning Machine Feeder Required: Yes Fish Boning Machine Feeder Name: Loren Benavides Danielle Allergies No Known Allergies [No Known Allergies*] Allergy (Verified 01/18/25 13:19) HPI HPI Asthma/PFT Follow Up: Details: 59-year-old lady, nonsmoker, now followed for asthma and environmental allergies. After the last office visit patient has been switched from Flovent to Breo with significantly improved symptom control. She occasionally uses her albuterol MDI. Patient has not completed her immunologic testing. Patient does complain of intermittent rapidly swelling and improving large joints. She is interested rheumatologic evaluation. [facility] Medical History (Updated 01/18/25 @ 14:04 by Sebastian Kemp MD) Breast pain Fibromyalgia Anxiety and depression Bilateral carpal tunnel syndrome Type 2 diabetes mellitus Essential hypertension Sjogren's syndrome Rheumatoid arthritis involving multiple sites with positive rheumatoid factor Acquired hypothyroidism Cervical radiculopathy Lumbar radiculopathy Asthma Surgical History H/O gastric bypass Hx of cataract extraction No history of previous surgery Family History Mother Arthritis Father No problems noted. Other Medical history unknown Social History Household Members: None Alcohol intake: never Patient Tobacco Use Status: Never used Tobacco Current occupational status: disabled Review of Systems Const Denies daytime sleepiness, Denies excessive sweating, Denies fatigue, Denies fever(s), Denies lethargy, Denies malaise, Denies night sweats, Denies snoring and Denies weight loss Eyes Denies blurry vision and Denies itchy eyes ENT Denies nasal congestion, Denies post nasal drip, Denies sinus pain, Denies sinus pressure and Denies other ( Thrush) Card Denies chest pain, Denies pedal edema, Denies dyspnea, Denies orthopnea and Denies paroxysmal nocturnal dyspnea Resp Denies cough, Denies hemoptysis, Denies excessive phlegm production, Denies dyspnea, Denies snoring and Denies wheezing GI Denies abdominal pain and Denies heartburn Musc Denies myalgias, Denies arthralgias and Denies joint swelling Skin/Breast Denies rash Neuro Denies memory loss and Denies seizure-like activity Psych Denies abnormal sleep pattern, Denies anxiety and Denies memory loss Endo Denies excessive sweating, Denies fatigue and Denies heat intolerance Jose Guadalupe/Lymph Denies easy bruising Aller/Immun Denies itchy eyes, Denies seasonal rhinorrhea and Denies wheezing Physical Exam Vital Signs: Last Vital Signs Pulse 93 01/18/25 13:14 BP 132/77 01/18/25 13:14 Pulse Ox 98 01/18/25 13:14 Oxygen Delivery Method Room Air 01/18/25 13:14 BMI result Body Mass Index 34.8 Const General: no acute distress and alert Nutritional Appearance: not obese Orientation/consciousness: Other orientation findings ( oriented) HEENT Head: Yes atraumatic Eyes General: appearance normal, both eyes and all related structures Sclerae: sclerae normal EOM: EOMs intact bilaterally Neck Neck: Yes supple Lymphatic: no lymphadenopathy noted Resp Effort & Inspection: normal respiratory effort and no use of accessory muscles Auscultation: clear to auscultation bilaterally Cardio Rate: regular rate Rhythm: regular rhythm Heart sounds: no gallops, no murmurs and no rubs Skin General skin exam: other ( warm) Extrem General: No clubbing, No cyanosis and No edema Assessment & Plan Assessment & Plan (1) Asthma: Code(s): J45.909 - Unspecified asthma, uncomplicated Category: Medical Plan: Improved control on Breo and albuterol MDI. Continue current regimen. (2) Environmental allergies: Code(s): Z91.09 - Other allergy status, other than to drugs and biological substances Category: Medical Plan: Immunologic workup is pending. (3) Rheumatoid arthritis: Code(s): M06.9 - Rheumatoid arthritis, unspecified Category: Medical Plan: Patient states that she had previous positive rheumatoid workup. Will refer to Rheumatology for further follow-up. Orders: Referrals Rheumatology Referral M06.9 - Rheumatoid arthritis, unspecified Coding Level of Care Code Est Pt Level 4 (43136) Diagnoses Asthma J45.909 Environmental allergies Z91.09 Rheumatoid arthritis M06.9
--- OUTSIDE RECORDS SUMMARY | 2025-01-18 15:28 | XMS_ITS | Encounter Summary ---
Author Organization [employer] Address [address] [facility] 7t [place] [address] Care Team Providers Care Elementary School Director Name Role Phone Rosalba Shin MD Primary Care Provide r Reason for Visit * Reason Comments Med Refill Encounter Details Date Type Department Care Team ([facility] st Contact Info) Description 06/08/2024 Refill [facility] [address] [place], [place] [phone] Rosalba Shin MD [address] [place], [place] [phone] Fibromyalgia Social History Tobacco Use Types Packs/Day [...] Care Team (Late st Contact Info) Description 03/16/2025 1:45 PM EDT Office Visit [facility] [address] [place] [phone] Rosalba Shin MD [address] [place] [phone] 03/22/2025 11:30 AM EDT Clinical Support [address] [address] Jeannette Thomas, KARLENE documented as of this encounter Visit Diagnoses Diagnosis Fibromyalgia Unspecified myalgia and myositis documented in this encounter Additional Health Concerns Assessment Noted Time PHQ-9 Depression Total Score: 7 04/06/20 23 2:10 PM EDT documented as of this encounter Care Teams Elementary School Director Relationship Specialty Start Date End Date Rosalba Shin MD [address] [place] [phone] PCP - General Family Medicine 12/26/20 documented as of this encounter
--- OUTSIDE RECORDS SUMMARY | 2025-01-18 15:28 | XMS_ITS | Clinical Summary ---
Author Organization [employer] Address [address] [facility] [address] [place] [address] Care Team Providers Care Insulation Board Head Saw Operator Name Role Phone Rosalba Shin MD [...] buttocks. 03/16/20 20 Active Deep Sea Nasal [place] 0.65 % nasal sprayIndication s:Viral pharyngitis SPRAY [...] complication, without long-term current use of insulin ([facility]) 1 each 2 times daily. 1 kit 09/07/20 Active Lancets miscIndications :Type 2 diabetes mellitus without complication, without long-term current use of insulin ([facility]) 1 each 2 times daily. 100 each [...] complication, without long-term current use of insulin ([facility]) USE DIRECTED TO TEST BLOOD SUGAR TWICE DAILY 100 strip 11 05/30/20 24 Active senna (Senokot) 8.6 MG tabletIndicatio ns:Other constipation TAKE 1 TABLET BY MOUTH ONE OR TWO TIMES DAILY NEEDED 180 tablet 1 07/07/20 24 Active Aspirin Low Dose 81 MG EC tabletIndicatio ns:Essential hypertension TAKE 1 TABLET BY MOUTH EVERY MORNING 90 tablet 1 07/07/20 24 Active lisinopril 10 MG tabletIndicatio ns:Hypertension , unspecified type Take 1 tablet (10 mg) by mouth in the morning. 30 tablet 11 07/13/20 24 025 Active TRUEplus Lancets 33G miscIndications :Type 2 diabetes mellitus without complication, without long-term current use of insulin ([facility]) USE TO TEST BLOOD SUGAR TWICE DAILY 100 each 1 07/21/20 24 Active Dextromethorpha n-guaiFENesin (Mucinex DM) 30-600 MG tablet sustained-relea se 12 hour TAKE 1 TABLET BY MOUTH THREE TIMES DAILY 28 tablet 07/26/20 24 Active rosuvastatin (Crestor) 20 MG tabletIndicatio ns:Type 2 diabetes mellitus without complication, without long-term current use of insulin ([facility]) Take 1 tablet (20 mg) by mouth Once per day. 30 tablet 11 08/12/20 24 025 Active naloxone (Narcan) 4 mg/0.1 mL nasal sprayIndication s:Fibromyalgia Administer 1 spray (4 mg) into affected nostril(s) if needed for opioid reversal. May repeat every 2-3 minutes if needed, alternating nostrils, until medical assistance becomes available. 2 each 3 10/06/20 24 025 Active Additional Information Patient not taking.Reported on [...] 20 doses. 20 tablet 12/02/19 25 Active levothyroxine (Synthroid, Levoxyl) [...] ORANGE JUICE 180 tablet 12/02/19 25 Active TRUEplus Lancets 33G miscIndications :Type 2 diabetes mellitus without complication, without long-term current use of insulin ([facility]) 1 each 2 times daily. 100 each [...] DIRECTED 30 patch 1 12/02/19 25 Active albuterol (Ventolin HFA) 108 (90 Base) MCG/ACT inhalerIndicati ons:Mild intermittent asthma with exacerbation INHALE 2 PUFFS BY MOUTH FOUR TIMES DAILY NEEDED 18 g 1 12/02/19 25 Active Asmanex HFA 200 MCG/ACT aerosolIndicati ons:Moderate persistent asthma, unspecified whether complicated INHALE 1 PUFF BY MOUTH EVERY TWELVE HOURS. RINSE MOUTH AFTER USING. 13 g 2 12/07/19 25 Active hydroCHLOROthia zide (HYDRODiuril) 25 MG tabletIndicatio ns:Essential hypertension TAKE 1 TABLET BY MOUTH EVERY MORNING 90 tablet 1 12/29/19 25 Active traMADol (Ultram) 50 MG tabletIndicatio ns:Fibromyalgia TAKE 1 TABLET BY MOUTH EVERY 8 HOURS NEEDED FOR SEVERE PAIN FOR UP TO 28 DAYS 84 tablet 01/13/20 25 Active zolpidem (Ambien) 10 MG tabletIndicatio ns:Primary insomnia TAKE 1 TABLET BY MOUTH EVERY DAY AT BEDTIME NEEDED FOR SLEEP 30 tablet 01/13/20 25 Active acetaminophen (Tylenol 8 Hour) 650 MG ER tabletIndicatio ns:Fibromyalgia TAKE 1 TABLET BY MOUTH EVERY 8 HOURS NEEDED FOR MILD PAIN FOR UP TO 10 DAYS, DO NOT BREAK, CRUSH, DISSOLVE OR CHEW 30 tablet 01/13/20 25 Active venlafaxine XR (Effexor XR) 37.5 MG 24 hr capsuleIndicati ons:Hot flashes due to menopause TAKE 1 CAPSULE BY MOUTH TWICE DAILY. DO NOT BREAK, CRUSH, DISSOLVE OR CHEW 60 capsule 2 01/13/20 25 Active betamethasone, augmented, (Diprolene) 0.05 % ointmentIndicat ions:Rash APPLY TOPICALLY TO THE AFFECTED AREA(S) TWICE DAILY DIRECTED 15 g 01/13/20 25 Active Diclofenac Sodium 1 % gelIndications: Chronic low back pain, unspecified back pain laterality, unspecified whether sciatica present APPLY 2 GRAMS TOPICALLY TO AFFECTED AREA(S) FOUR TIMES DAILY DIRECTED 100 g 1 01/19/20 25 Active venlafaxine XR (Effexor XR) 37.5 MG 24 hr capsuleIndicati ons:Hot flashes due to menopause TAKE 1 CAPSULE BY MOUTH TWICE DAILY. DO NOT BREAK, CRUSH, DISSOLVE OR CHEW. 60 capsule 2 07/01/20 24 025 Discontinued hydroCHLOROthia zide (HYDRODiuril) 25 MG tabletIndicatio ns:Essential hypertension TAKE 1 TABLET BY MOUTH EVERY MORNING 90 tablet 1 07/07/20 24 025 Discontinued traMADol (Ultram) 50 MG tabletIndicatio ns:Fibromyalgia TAKE 1 TABLET BY MOUTH EVERY 8 HOURS NEEDED FOR SEVERE PAIN FOR UP TO 28 DAYS 84 tablet 12/02/19 25 025 Discontinued zolpidem (Ambien) 10 MG tabletIndicatio ns:Primary insomnia TAKE 1 TABLET BY MOUTH AT BEDTIME NEEDED for SLEEP 30 tablet 12/02/19 25 025 Discontinued acetaminophen (Tylenol 8 Hour) 650 MG ER tabletIndicatio ns:Fibromyalgia TAKE 1 TABLET BY MOUTH EVERY 8 HOURS NEEDED FOR MILD PAIN FOR UP TO 10 DAYS, DO NOT BREAK, CRUSH, DISSOLVE OR CHEW 30 tablet 12/02/19 25 025 Discontinued betamethasone, augmented, (Diprolene) 0.05 % ointmentIndicat ions:Rash Apply topically 2 times daily. 15 g 12/02/19 25 025 Discontinued Diclofenac Sodium 1 % gelIndications: Chronic low back pain, unspecified back pain laterality, unspecified whether sciatica present APPLY 2 GRAMS TOPICALLY TO AFFECTED AREA(S) FOUR TIMES DAILY 100 g 1 12/02/19 25 025 Discontinued Active Problems Problem Noted Date Diagnosed Date [...] (04/06/2023 3:20 PM EDT): Counseling done today N referral Rheumatoid arthritis involvi ng multiple sites [...] Encounters Date Type Department Care Team Description 01/18/2025 Refill [facility] [address] [place] [address] Rosalba Shin MD Chronic low back pain, unspecified back pain laterality, unspecified whether sciatica present 01/12/2025 Refill [facility] [address] [place] [address] Rosalba Shin MD Fibromyalgia; Primary insomnia; Hot flashes due to menopause; Rash 01/03/2025 11:30 AM EST Clinical Support [facility] [address] [place] [address] [phone] Jeannette Thomas RN Chronic low back pain, unspecified back pain laterality, unspecified whether sciatica present (Primary Dx) 01/03/2025 Travel 12/29/2024 Refill [facility] [address] [place] [address] [phone] Rosalba Shin MD Essential hypertension 12/20/2024 Telephone [facility] [address] [place] [phone] Joya Hauser [place] February12/07/2024 Refill [facility] [address] [place] [address] [phone] Rosalba Shin MD Moderate persistent asthma, unspecified whether complicated 12/06/2024 6:40 PM EST Office Visit [facility] [address] [place] [address] [phone] Hernán Worley MD Left-sided chest pain (Primary Dx) 12/06/2024 Orders Only GENERIC EXTERNAL DATA DEPARTMENT Provider, Generic External Data 12/06/2024 Telephone [facility] [address] [place] [address] [phone] Jeannette Thomas RN NCNS for SPECIFICATION WRITER RV appt today 12/06/2024 Telephone [facility] [address] [place] [address] [phone] Jeannette Thomas RN Recommend SPECIFICATION WRITER Tier 2 12/02/2024 1:30 PM EST Office Visit [facility] [address] [place], [place] [phone] Fly Salgado DDS Dental abscess (Primary Dx) 12/02/2024 Refill [facility] [address] [place] [address] [phone] Gino Browning MD 12/02/2024 Refill [facility] [address] [place] [address] [phone] Alban Diaz MD Folliculitis 12/02/2024 Refill [facility] [address] [place] [address] [phone] Ofelia Wright ANP Type 2 diabetes mellitus without complication, without long-term current use of insulin ([facility]) 12/02/2024 Refill [facility] [address] [place] [address] [phone] Maria L Navarro MD Hypothyroidism, unspecified type; Iron deficiency anemia, unspecified iron deficiency anemia type; Type 2 diabetes mellitus without complication, without long-term current use of insulin ([facility]); Folliculitis; Pain; Chronic low back pain, unspecified back pain laterality, unspecified whether sciatica present; Rash; Mild intermittent asthma with exacerbation 12/02/2024 Refill [facility] [address] [place] [address] [phone] Rosalba Shin MD Fibromyalgia; Primary insomnia; Chronic low back pain, unspecified back pain laterality, unspecified whether sciatica present; Pain; Rash; Mild intermittent asthma with exacerbation 11/25/2024 1:00 PM EST Office Visit [facility] [address] [place] [address] [phone] Aidee Miller, OD Type 2 diabetes mellitus without ophthalmic manifestations ([facility]) (Primary Dx); 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; Lamellar macular hole of right eye; Dry eyes, bilateral; Presbyopia 11/25/2024 Travel 11/14/2024 3:40 PM EST Office Visit [facility] [address] [place] [address] [phone] Gino Browning MD Subacute cough (Primary Dx); Exacerbation of asthma, unspecified asthma severity, unspecified whether persistent 11/14/2024 Travel 11/08/2024 11:00 AM EST Office Visit [facility] [address] [place] [address] Rosalba Shin MD Moderate persistent asthma, unspecified whether complicated (Primary Dx); Type 2 diabetes mellitus without complication, without long-term current use of insulin ([facility]); Fibromyalgia; Rash; Dry eye 11/08/2024 Travel 11/02/2024 Travel from Last 3 Months Immunizations Name Administration [...] Description 03/16/2025 1:45 PM EDT Office Visit [facility] [address] [place] [address] [phone] Rosalba Shin MD [address] [place] [address] 03/22/2025 11:30 AM EDT Clinical Support [facility] [address] [place] [address] [phone] Jeannette Thomas RN Health Maintenance Due Date Last Done [...] Name Priority Date/Time Associated Diagnosis Comments POCT JUVE-14 URINE DRUG SCREEN Routine 01/03/2025 11:37 AM EST Chronic low back pain, unspecified back pain laterality, unspecified whether sciatica present XR CHEST 2 VIEWS Routine 12/06/2024 7:13 [...] 12/06/2024 5:37 PM EST Left-sided chest pain CASE PRESENTATION, DETAILED AND EXTENSIVE TREATMENT PLANNING Routine 12/02/2024 [...] complication, without long-term current use of insulin ([facility]/HCC) LIPID PANEL WITH REFLEX TO DIRECT LDL Routine 07/13/2024 3:15 PM EDT Type 2 diabetes mellitus without complication, without long-term current use of insulin (CMS/HCC) Essential hypertension ALBUMIN, RANDOM URINE W/CREATININE Routine 07/13/2024 12:00 AM EDT Type 2 diabetes mellitus without complication, without long-term current use of insulin ([facility]) POCT GLYCATED HEMOGLOBIN, TOTAL Routine 07/04/2024 1:36 PM EDT Type 2 diabetes mellitus without complication, without long-term current use of insulin ([facility]) INTRAORAL - COMPLETE SERIES OF RADIOGRAPHIC IMAGES Routine 03/04/2024 9:00 [...] Recently Relevant to Health Maintenance Results * POCT JUVE-14 Urine Drug Screen (01/03/2025 11:37 AM EST) TCA, Urine Positive Urine Urine specimen obtained by clean catch procedure / Unknown 01/03/2025 11:37 AM EST Jeannette Flores RN - 01/03/2025 11:37 AM EST UTOX cup Lot#[id number] Exp. 07/05/26 Internal Pass Control us Rosalba Kingsley MD POINT OF CARE TEST EN TER/EDIT ORDERABLES Final Result * XR Chest 2 Views (12/06/2024 7:13 PM EST) Anatomical Region Laterality Modality Chest Radiographic Sheila ging 12/06/2024 7:13 PM EST Narrative 12/06/2024 7:15 PM EST ? [facility] ?[address] ?[place] [address] ?XRay Report ? Signed ? Patient: Gutierrez,Kerline ?MR#: [id number] ? : 1965 ?Acct:[id number] ? Age/Sex: 59 / F ?ADM Date: 12/06/24 ? Loc: HO.ED ? Attending Dr: ? Ordering Physician: Madhavi Carvalho ?? Date of Service: 12/06/24 ?? Procedure(s): XR chest 2V ?? Accession Number(s): [id number] ? cc: Rosalba Shin MD; Madhavi Carvalho [...] signed by Irwin Dubose MD in OV> ?12/06/241913 ? DD/ 12 ? TD/TT: 12/06/241912 ? Resin Filterer: ? Procedure Note Flavia, Pauline - 12/06/[address] [address] XRay Report Signed Patient: Diana Gutierrez#: [id number] : 1965Acct:[id number] Age/Sex: 59 / FADM Date: 12/06/24 Loc: HO.ED Attending Dr: Ordering Physician: Madhavi Carvalho Date of Service: 12/06/24 Procedure(s): XR chest 2V Accession Number(s): [id number] cc: Rosalba Shin MD; Madhavi Carvalho CLINICAL [...] in OV> 12/06/241913 DD/ 12 TD/TT: 12/06/241912 Resin Filterer: [facility] External Provider IMG XR PROCEDURES Final Result * High Sensitivity Troponin I (12/06/2024 6:14 PM EST) Pathologist [facility] TROPONIN I HIGH SENSITIVITY <2.7 <3.5 - 17.0 ng/L [facility] Comment:The Goel high sens itivity Troponin-I results should beused in conjunction with other diagnostic information suchas ECG, clinical observations and information, and patientsymptoms to aid in the diagnosis of NC. 12/06/2024 6:14 PM EST 12/06/2024 6:17 PM EST Generic External Data Provider LAB BLOOD ORDERAB LES Final Result [facility] [address] [place] [phone] * SARS-CoV-2 RNA, Influenza A/B, and RSV RNA, Ql NAAT (12/06/2024 6:14 PM EST) Influenza A PCR NEGATIVE Negative [facility] Influenza B PCR NEGATIVE Negative [facility] Resp Syncy Virus RNA Qual PCR NEGATIVE Negative [facility] SARS COV2 PCR NEGATIVE Negative [facility] Comment:All test results mus t be [...] use by authorized laboratories.Testing performed on the M[employer] GeneXpert utilizingreal-time RT-PCR.All SARS CoV2 and positive influenza A/B results arereported to [facility]. 12/06/2024 6:14 PM EST 12/06/2024 6:17 PM EST us Generic External Data Provider LAB MICROBIOLOGY - GENERAL ORDERABLES Final Result [facility] [address] [place] [phone] * (ABNORMAL) CBC auto differential (12/06/2024 6:14 PM EST) White Blood Count 6.9 4.8 - 10.8 X10*3/uL [facility] Red Blood Count 4.69 4.20 - 5.50 X10*6/uL [facility] Hemoglobin 13.8 12.0 - 16.0 g/dl [facility] Hematocrit 40.3 37.0 - 47.0 % [facility] Mean Corpuscular Volume 85.9 80.0 - 98.0 fL [facility] Mean Corpuscular Hemoglobin 29.4 27.0 - 33.0 pg [facility] Mean Corpuscular HGB Conc 34.2 31.0 - 35.0 g/dl [facility] Red Cell Distribution Width 12.9 11.0 - 16.0 % [facility] Platelet Count 267 160 - 400 X10*3/uL [facility] Mean Platelet Volume 10.5 9.4 - 12.3 fL [facility] Neutrophils Percent Auto 50.1 45 - 73 % [facility] Imm Gran Pct Auto 0.6(H) 0.0 - 0.4 % [facility] Lymphocytes Percent Auto 36.3 20 - 40 % [facility] Monocytes Percent Auto 10.1 2 - 11 % [facility] Eosinophils Percent Auto 2.5 0 - 4 % [facility] Basophils Percent Auto 0.4 0 - 2 % [facility] NRBC Pct Auto 0.0 0.0 - 0.2 /100WBC [facility] Neutrophils Absolute Auto 3.5 2.0 - 8.3 x10*3/uL [facility] Imm Gran Abs Auto 0.04(H) 0.00 - 0.03 X10*3/uL [facility] Lymphocytes Absolute Auto 2.5 1.2 - 4.9 X10*3/uL [facility] Monocytes Absolute Auto 0.7 0.1 - 1.2 X10*3/uL [facility] Eosinophils Absolute Auto 0.2 0.0 - 0.4 X10*3/uL [facility] Basophils Absolute Auto 0.0 0.0 - 0.2 X10*3/uL [facility] NRBC Abs Auto 0.000 0.0 - 0.012 X10*3/uL [facility] 12/06/2024 6:14 PM EST 12/06/2024 6:17 PM EST us Generic External Data Provider LAB BLOOD ORDERAB LES Final Result Performing Organization Address City/[facility]/ZIP Co de Phone Number [facility] [address] [place] [phone] * Magnesium (12/06/2024 6:14 PM EST) Magnesium 1.7 1.6 - 2.6 mg/dL [facility] 12/06/2024 6:14 PM EST 12/06/2024 6:17 PM EST us Generic External Data Provider LAB BLOOD ORDERAB LES Final Result Performing Organization Address [facility]/ZIP Co de Phone Number [facility] [address] [place] [phone] * (ABNORMAL) Hepatic Function Panel (12/06/2024 6:14 PM EST) Pathologist [facility] Bilirubin, Total 0.6 0.0 - 1.0 mg/dL [facility] Bilirubin, Direct 0.2 0.0 - 0.5 mg/dL [facility] Aspartate Amino Transferase 33(H) 5 - 31 U/L [facility] Alanine Aminotransferase 23 0 - 31 U/L [facility] Total Protein 8.1(H) 6.5 - 8.0 g/dL [facility] Albumin Level 4.1 3.5 - 5.0 g/dL [facility] Alkaline Phosphatase 74 39 - 117 U/L [facility] 12/06/2024 6:14 PM EST 12/06/2024 6:17 PM EST us Generic External Data Provider LAB BLOOD ORDERAB LES Final Result [facility] [address] [place] [phone] * (ABNORMAL) Basic Metabolic Panel (12/06/2024 6:14 PM EST) [facility] Sodium 139 135 - 145 mmol/L [facility] Potassium 3.7 3.3 - 5.1 mmol/L [facility] Chloride 103 96 - 108 mmol/L [facility] Carbon Dioxide 29 22 - 29 mmol/L [facility] Anion Gap 11(L) 12 - 20 [facility] Urea Nitrogen (BUN) 8(L) 9 - 16 mg/dL [facility] Creatinine, Serum 0.66 0.5 - 1.4 mg/dL [facility] Creatinine Clr Calc Pharmacy 103.6 [facility] Comment:Provided height and weight: 165.1 cm,91.2 kg.eGFR (calculated from the MDRD study equation) and eCrCl(calculated from the Cockcroft-Gault equation) are based ondifferent parameters and may not yield comparable results.If eCrCl result is absurd, please check patient'sheight/weight. Estimated Glomerular Filt Rate >60 [facility] Comment:Chronic Kidney Disea se: Estimated GFR < 60 mL/min/1.41l3Kvcvnd Kidney Disease: Estimated GFR < 15 mL/min/1.73m2 Glucose 102 60 - 115 mg/dL [facility] Calcium 9.6 8.4 - 10.2 mg/dL [facility] 12/06/2024 6:14 PM EST 12/06/2024 6:17 PM EST us Generic External Data Provider LAB BLOOD ORDERAB LES Final Result [facility] [address] [place] [phone] * ECG 12 lead (12/06/2024 5:37 PM EST) Narrative Hernán Worlye MD - 12/06/2024 5:37 PM EST NSR 98. No arrhythmia. LAD. Pseudo-normalization of T-waves in lead III compared [place]20[place] [facility] Hernán Worley MD ECG ORDERABLES Final Result [...] GOEL ID NOW (11/14/2024 3:45 PM EST) [facility] Influenza B Negative Negative, Indeterminate [facility] Swab 11/14/2024 3:45 PM EST Gino Browning MD POINT OF CARE TEST ENTER/EDIT OR DERABLES Final Result Performing Organization Address [facility] Co de Phone Number [facility] [address] [place] [phone] * POCT Rapid Influenza A GOEL ID NOW (11/14/2024 3:45 PM EST) [facility] Influenza A Negative Negative, Indeterminate [facility] Swab 11/14/2024 3:45 PM EST Gino Browning MD POINT OF CARE TEST ENTER/EDIT OR DERABLES Final Result Performing Organization Address [facility] de Phone Number [facility] [address] [place] [phone] * POCT Rapid Strep A GOEL ID NOW (11/14/2024 3:45 PM EST) [facility] Rapid Strep A Screen Negative Negative, None Detected Swab 11/14/2024 3:45 PM EST Gino Browning MD POINT OF CARE TEST ENTER/EDIT OR DERABLES Final Result * POCT Rapid Covid-19 BinaxNOW (11/14/2024 3:45 PM EST) [facility] Rapid COVID Ag Negative Swab 11/14/2024 3:45 PM EST Result [facility] us Gino Browning MD POINT OF CARE TEST ENTER/EDIT OR DERABLES Final Result * POCT Glucose (11/08/2024 11:01 AM EST) Glucose Blood, POC 115 60 - 200 mg/dL [employer] Lot # [id number] Lot# Expiration Date [id number] Blood Capillary blood specimen / Unknown 11/08/2024 11:01 AM EST us Rosalba Kingsley MD POINT OF CARE TEST EN TER/EDIT ORDERABLES Final Result * (ABNORMAL) Lipid Panel with Reflex to Direct LDL (07/13/2024 3:15 PM EDT) Triglycerides 135 <150 mg/dL [facility] Comment:Desirable Triglyceri de: less than 150 mg/dLBorderline High Triglyceride 150-199 mg/dLHigh Triglyceride: 200-499 mg/dLVery High Triglyceride: greater than or equal to 5OO mg/dL Cholesterol 220(H) <200 mg/dL [facility] Comment:Desirable Cholestero l: less than 200 mg/dLBorderline High Cholesterol: 200-239 mg/dLHigh Cholesterol: greater than 239 mg/dL LDL Cholesterol Calculated 134(H) <100 mg/dL [facility] Comment:Desirable LDL: less than 100 mg/dLNear Optimal/Above Optimal LDL: 110- 129 mg/dLBorderline High LDL: 130-159 mg/dLHigh LDL: 160-189 mg/dLVery High LDL: greater than or equal to 190 mg/dL HDL Cholesterol 59 >40 mg/dL [facility] Comment:Desirable HDL: great er than 40 mg/dL Note: This HDL assay may give artificially low results in patients with liver disease. Blood 07/13/2024 3:15 PM EDT 07/13/2024 4:04 PM EDT Rosalba Kingsley MD LAB BLOOD ORDERABLES Final Result [facility] [address] [place] [address] [phone] * Albumin, Random Urine W/Creatinine (07/13/2024 12:00 AM EDT) Creatinine, Urine 115.51 mg/dL [facility] Microalbumin Urine 28.0 mg/L [facility] Microalbum Creatinine Ratio Ur 24.2 <30 ug/mg cr [facility] Comment:Albumin/Creatinine R atio Reference Ranges: Normal: < 30 ug/mg creatinine Microalbuminuria: 30 - 300 ug/mg creatinineClinical Albuminuria: > 300 ug/mg creatinine Urine (Urine, Random) 07/13/2024 07/13/2024 Rosalba Kingsley MD LAB URINE ORDERABLES Final Result [facility] [address] [place] [phone] * POCT HGB A1C (07/04/2024 1:36 PM EDT) Pathologist [facility] Hemoglobin A1C 6.0 4.0 - 6.0 % QC Media Lot # [id number] Lot# Expiration Date [id number] Blood 07/04/2024 1:36 PM EDT Rosalba Kingsley MD POINT OF CARE TEST EN TER/EDIT ORDERABLES Final Result * BI Mammogram Diagnostic Tomosynthesis Bilateral (02/12/2024 10:01 AM EDT) Anatomical Region Laterality Modality Breast Bilateral Mammography 02/12/2024 10:0 1 AM EDT Narrative 02/12/2024 12:05 PM EDT ? [facility] ? [address] ?[place] [address] ? Mammography Report ? Signed ? Patient: Gutierrez,Kerline ?MR#: [id number] ? : 1965 ?Acct:[id number] ? Age/Sex: 58 / F ?ADM Date: 03/29/24 ? Loc: HO.MAMMO ? Attending Dr: Rosalba Kingsley MD ? Ordering Physician: Rosalba Shin MD ?Results: ?? 2Benign Findings ? Date of Service: 02/12/24 ?Follow Up: 1 Year From Orig ?? inal Mammogram ? Procedure(s): MM tomosynthesis diagnostic BI ?? Accession Number(s): [id number] ? cc: Rosalba Shin MD ? EXAMINATION: [...] 1201 ? DD/ 1001 ? TD/TT: ? Resin Filterer: ? Procedure Note Donotuseinterpreter, Image - 02/12/2024 [facility] [address] [place] [address] [place] [address] Mammography Report Signed Patient: Diana Gutierrez#: [id number] : 1965Acct:[id number] Age/Sex: 58 / FADM Date: 02/12/24 Loc: HO.MAMMO Attending Dr: Rosalba Kingsley MD Ordering Physician: Rosalba Shin MDResults: 2Benign Findings Date of Service: 02/12/24Follow Up: 1 Year From Orig inal Mammogram Procedure(s): MM tomosynthesis diagnostic BI Accession Number(s): [id number] cc: Rosalba Shin MD EXAMINATION: MM DIAGNOSTIC [...] in OV> 02/12/24 1201 DD/ 1001 TD/TT: Resin Filterer: Rosalba Kingsley MD IMG BI PROCEDURES Arash jamaal Result - Final * Image-Guided Pap with Age-Based Screening??with CT/NG,??Trichomonas (09/22/2023 10:18 AM EST) Trichomonas (NAAT) NOT DETECTED NOT DETECTED [facility] Comment:The analytical perfo rmance characteristics of thisassay have been determined by [employer]. Themodifications have not been cleared or approved bythe FDA. This assay has been validated pursuant to theCLIA regulations and is used for clinical purposes.For additional information, please refer tohttp://education.[employer]/faq/Trichomonastma(This link is being provided for information/educational purposes only.)THIS TEST WAS PERFORMED AT:[employer] [address] [id number] GARCIA MD CTNG Ref Lab NOT DETECTED NOT DETECTED [facility] NG Ref Lab NOT DETECTED NOT DETECTED [facility] 09/22/2023 10:1 8 AM EST 09/23/2023 7:30 AM EST Rosalba Kingsley MD LAB CYTOLOGY ORDERABL ES Final Result [facility] [address] [place] [phone] * HPV mRNA E6/E7 w/Reflex to HPV Genotypes 16, 18/45 (09/22/2023 10:18 AM EST) HPV nRNA E6/E7 Not Detected Not Detected [facility] Comment:Methodology: Transcr iption-Mediated AmplificationThis assay detects E6/E7 viral messenger RNA (mRNA) from 14high-risk HPV types (16,18,31,33,35,39,45,51,52,56,58,59,66,68).Cervical sources are required for HPV testing.If a vaginal source from a patient who has had atotal hysterectomy with removal of cervix wassubmitted, please contact the testing laboratoryfor alternative testing options.For additional information, please refer tohttp://education.[employer]/faq/EUT297v3(This link if provided for information/educational purposes only.)THIS TEST WAS PERFORMED AT:[employer] [facility] [address] [id number] GARCIA MD HPV mRNA E6/E7 TNP [facility] HPV 16 RNA TNP [facility] HPV 18/45 RNA TNP [facility] 09/22/2023 10:1 8 AM EST 09/23/2023 7:30 AM EST us Rosalba Kingsley MD LAB CYTOLOGY ORDERABL ES Final Result [facility] [address] [place] [address] [phone] * Colonoscopy (06/01/2018) Colonoscopy Normal Normal Narrative Aditi Durand - 06/01/2018 Recommended 10 year follow up Historical Provider HEALTH MAINTENANCE Final Result from Last 3 Months or Most Recently Relevant to Health Maintenance Insurance [facility] C3 DENTAL-[facility] MEDICAID STAND ADULT * Guarantor: Kerline Gutierrez Account Type Relation to Patient Date of Phone Billing Address Personal/Family Self [address] Care Teams Insulation Board Head Saw Operator Relationship Specialty Start Date End Date Rosalba Shin MD [address] [place] [phone] PCP - General Family Medicine 12/26/20
--- OUTSIDE RECORDS SUMMARY | 2025-01-18 15:28 | XMS_ITS | Encounter Summary ---
Author Organization [facility] Address [address] [place] [address] 7t [place] [address] Care Team Providers Care Cleater Name Role Phone Rosalba Shni MD Primary Care Provide r Reason for Visit * Reason Comments Med Refill Encounter Details Date Type Department Care Team (Late Contact Info) Description 03/10/2023 Refill [facility] [address] [place] [address] [phone] Name, MD Gino [address] [place] [address] [phone] Chronic low back pain, unspecified back pain [...] Description 03/16/2025 1:45 PM EDT Office Visit [facility] [address] [place] [address] [phone] Rosalba Shin MD [address] [place] [address] 03/22/2025 11:30 AM EDT Clinical Support [facility] [address] [place] [address] Jeannette Thomas, KARLENE documented as of this encounter Visit Diagnoses Diagnosis Chronic low back pain, unspecified back pain laterality, unspecified whether sciatica present documented in this encounter Care Teams Cleater Relationship Specialty Start Date End Date Rosalba Shin MD 230 [place] [address] PCP - General Family Medicine 12/26/20 documented as of this encounter
--- OUTSIDE RECORDS SUMMARY | 2025-01-18 15:28 | XMS_ITS | Encounter Summary ---
Author Organization [employer] Address 75 [facility] 7t [place] [address] Care Team Providers Care Optometry Professor Name Role Phone Rosalba Shin MD Primary Care Provide r Reason for Visit * Reason Comments Med Refill Encounter Details Date Type Department Care Team ([facility] st Contact Info) Description 12/02/2024 Refill [facility] 230 [place], [place] [phone] Ofelia Wright, ANP 230 [place], [place] [phone] Type 2 diabetes mellitus without complication, without long-term current use of insulin ([facility]) Social History Tobacco Use Types [...] Description 03/16/2025 1:45 PM EDT Office Visit [facility] [address] [place] [address] Rosalba Shin MD [address] [place] [address] 03/22/2025 11:30 AM EDT Clinical Support [address] [address] Jeannette Thomas RN documented as of this encounter Visit Diagnoses Diagnosis Type 2 diabetes mellitus without complication, without long-term current use of insulin ([facility]) documented in this encounter Additional Health Concerns Assessment Noted Time PHQ-9 Depression Total Score: 0 08/12/20 24 11:42 AM EDT documented as of this encounter Care Teams Optometry Professor Relationship Specialty Start Date End Date Rosalba Shin MD [address] [place] [phone] PCP - General Family Medicine 12/26/20 documented as of this encounter
--- OUTSIDE RECORDS SUMMARY | 2025-01-18 15:28 | XMS_ITS | Clinical Summary ---
Author Organization [facility] Address [address] [place] [address] Care Team Providers Care Mine Boss Name Role Phone Unavailable Primary Care Provider [...]
--- OUTSIDE RECORDS SUMMARY | 2025-01-18 15:28 | XMS_ITS | Encounter Summary ---
Author Organization [employer] Address 75 [facility] 7t [place] [address] Care Team Providers Care Sales Assistant Institutional Sales Name Role Phone Rosalba Shin MD Primary Care Provide r Reason for Visit * Reason Comments Med Refill Encounter Details Date Type Department Care Team ([facility] st Contact Info) Description 10/22/2023 Refill [facility] 230 [place], [place] [phone] Maria L Navarro MD 230 [place], [place] [phone] Chronic low back pain, unspecified back pain [...] Description 03/16/2025 1:45 PM EDT Office Visit [facility] [address] [place] [phone] Rosalba Shin MD [address] [place] [address] 03/22/2025 11:30 AM EDT Clinical Support [address] [address] Jeannette Thomas RN documented as of this encounter Visit Diagnoses Diagnosis Chronic low back pain, unspecified back pain laterality, unspecified whether sciatica present documented in this encounter Additional Health Concerns Assessment Noted Time PHQ-9 Depression Total Score: 7 04/06/20 23 2:10 PM EDT documented as of this encounter Care Teams Sales Assistant Institutional Sales Relationship Specialty Start Date End Date Rosalba Shin MD [address] [place] [phone] PCP - General Family Medicine 12/26/20 documented as of this encounter
--- OUTSIDE RECORDS SUMMARY | 2025-01-18 15:28 | XMS_ITS | Encounter Summary ---
Author Organization [employer] Address 75 [facility] 7t [place] [address] Care Team Providers Care Coating Operator Name Role Phone Rosalba Shin MD Primary Care Provide r Reason for Visit * Reason Comments Med Refill Encounter Details Date Type Department Care Team ([facility] st Contact Info) Description 12/29/2024 Refill [facility] 230 [place], [place] [phone] Rosalba Shin MD 230 [place], [place] [phone] Essential hypertension Social History Tobacco Use Types Packs/Day Years [...] is your housing situation today? I have asilaja mujica 06/20/[address] you [...] Description 03/16/2025 1:45 PM EDT Office Visit [facility] [address] [place] [phone] Rosalba Shin MD [address] [place] [address] 03/22/2025 11:30 AM EDT Clinical Support [facility] [address] [place] [phone] Jeannette Thomas, RN documented as of this encounter Visit Diagnoses Diagnosis Essential hypertension Unspecified essential hypertension documented in this encounter Additional Health Concerns Assessment Noted Time PHQ-9 Depression Total Score: 0 08/12/20 24 11:42 AM EDT documented as of this encounter Care Teams Coating Operator Relationship Specialty Start Date End Date Rosalba Shin MD [address] [place] [address] PCP - General Family Medicine 12/26/20 documented as of this encounter
--- OUTSIDE RECORDS SUMMARY | 2025-01-18 15:28 | XMS_ITS | Encounter Summary ---
Author Organization [employer] Address 75 [facility] 7t [place] [address] Care Team Providers Care Mammography Tech Name Role Phone Rosalba Shin MD Primary Care Provide r Encounter Details Date Type Department Care Team (Latest Contact Info) Description 01/03/2025 Travel Social History Tobacco Use Types Packs/Day [...] Description 03/16/2025 1:45 PM EDT Office Visit [facility] [address] [place] [phone] Rosalba Shin MD [address] [place] [address] 03/22/2025 11:30 AM EDT Clinical Support [facility] [address] [place] [address] Jeannette Thomas, KARLENE documented as of this encounter Visit Diagnoses Not on filedocumented in this encounter Additional Health Concerns Assessment Noted Time PHQ-9 Depression Total Score: 0 08/12/20 24 11:42 AM EDT documented as of this encounter Care Teams Mammography Tech Relationship Specialty Start Date End Date Rosalba Shin MD [address] [place] [phone] PCP - General Family Medicine 12/26/20 documented as of this encounter
--- OUTSIDE RECORDS SUMMARY | 2025-01-18 15:28 | XMS_ITS | Encounter Summary ---
Author Organization [employer] Address 75 [facility] 7t [place] [address] Care Team Providers Care Nuclear Engineer Name Role Phone Rosalba Shin MD Primary Care Provide r Encounter Details Date Type Department Care Team (Late st Contact Info) Description 08/26/2023 Abstract [facility]INE 230 [place] [address] Rosalba Shin MD 230 [place] [address] Social History Tobacco Use Types Packs/Day Years [...] t he electric, gas, oil or water Qnekt threatened to shut off services in your [...] Description 03/16/2025 1:45 PM EDT Office Visit [address] [phone] Rosalba Shin MD [address] [place] [address] 03/22/2025 11:30 AM EDT Clinical Support [address] [phone] Jeannette Thomas, RN documented as of this encounter Procedures [...] documented as of this encounter Care Teams Nuclear Engineer Relationship Specialty Start Date End Date Rosalba Shin MD [address] [place] [address] [phone] PCP - General Family Medicine 12/26/20 documented as of this encounter
--- OUTSIDE RECORDS SUMMARY | 2025-01-18 15:28 | XMS_ITS | Encounter Summary ---
Author Organization [employer] Address 75 [facility] 7t [place] [address] Care Team Providers Care It Support Manager Name Role Phone Rosalba Shin MD Primary Care Provide r Reason for Visit * Reason Comments Med Refill Encounter Details Date Type Department Care Team ([facility] st Contact Info) Description 12/02/2024 Refill [facility] 230 [place], [place] [phone] Name, MD Gino 230 [place] [address] Social History Tobacco Use Types Packs/Day Years [...] PM EDT Office Visit [facility] [address] [place] [address] Rosalba Shin MD [address] [place] [address] 03/22/2025 11:30 AM EDT Clinical Support [address] [address] Jeannette Thomas, KARLENE documented as of this encounter Visit Diagnoses Not on filedocumented in this encounter Additional Health Concerns Assessment Noted Time PHQ-9 Depression Total Score: 0 08/12/20 24 11:42 AM EDT documented as of this encounter Care Teams It Support Manager Relationship Specialty Start Date End Date Rosalba Shin MD [address] [place] [phone] PCP - General Family Medicine 12/26/20 documented as of this encounter
--- OUTSIDE RECORDS SUMMARY | 2025-01-18 15:28 | XMS_ITS | Encounter Summary ---
Author Organization [email or web address] [facility] Address [address] [place] [address] 7t [place] [address] Care Team Providers Care Freight Car Inspector Name Role Phone Rosalba Shin MD Primary Care Provide r Reason for Visit * Reason Comments Med Refill Encounter Details Date Type Department Care Team (Late st Contact Info) Description 03/17/2023 Refill [facility] [address] [place] [address] [phone] Rosalba Shin MD [address] [place] [address] [phone] Primary insomnia Social History Tobacco Use Types [...] Description 03/16/2025 1:45 PM EDT Office Visit [facility] [address] [place] [address] [phone] Rosalba Shin MD [address] [place] [address] [phone] 03/22/2025 11:30 AM EDT Clinical Support [facility] [address] [place] [address] Jeannette Thomas, RN documented as of this encounter Visit Diagnoses Diagnosis Primary insomnia Persistent disorder of initiating or maintaining sleep documented in this encounter Care Teams Freight Car Inspector Relationship Specialty Start Date End Date Rosalba Shin MD 230 [place] [address] PCP - General Family Medicine 12/26/20 documented as of this encounter
--- OUTSIDE RECORDS SUMMARY | 2025-01-18 15:28 | XMS_ITS | Encounter Summary ---
Author Organization [employer] Address 75 [facility] 7t [place] [address] Care Team Providers Care Patient Financial Services Manager Name Role Phone Rosalba Shin MD Primary Care Provide r Reason for Visit * Reason Onset Date Comments ALMA RECALL 12/20/2024 Encounter Details Date Type Department Care Team (Late st Contact Info) Description 12/20/2024 Telephone [facility] [address] [facility] [place], [place] [phone] Joya Hauser MA FEBRUARY RECALL Social History Tobacco Use Types Packs/Day Years [...] encounter Miscellaneous Notes * Telephone Encounter - Joya Hauser MA - 12/20/2024 9:50 AM EST TC- Patient to schedule an appt (February) with F\Sandra 4 months chronic conditions LVMto call back to sche appt.Mailed recall letter. documented in this encounter Plan of Treatment Upcoming Encounters Date Type Department Care Team (Late st Contact Info) Description 03/16/2025 1:45 PM EDT Office Visit [facility] [address] [place] [address] Rosalba Shin MD [address] [place] [address] 03/22/2025 11:30 AM EDT Clinical Support [facility] [address] [place] [address] Jeannette Thomas RN documented as of this encounter Visit Diagnoses Not on filedocumented in this encounter Additional Health Concerns Assessment Noted Time PHQ-9 Depression Total Score: 0 08/12/20 24 11:42 AM EDT documented as of this encounter Care Teams Patient Financial Services Manager Relationship Specialty Start Date End Date Rosalba Shin MD [address] [place] [address] PCP - General Family Medicine 12/26/20 documented as of this encounter
--- OUTSIDE RECORDS SUMMARY | 2025-01-18 15:28 | XMS_ITS | Encounter Summary ---
Author Organization [employer] Address 75 [facility] 7t [place] [address] Care Team Providers Care Laborer Pole Crew Name Role Phone Rosalba Shin MD Primary Care Provide r Reason for Visit * Reason Comments ROTARY DRILL OPERATOR HELPER RV ROTARY DRILL OPERATOR HELPER RV Encounter Details Date Type Department Care Team (Latest Contact Info) Description 01/03/2025 11:30 AM EST Clinical Support [facility]INE 230 [place] [address] Jeannette Thomas RN Chronic low back pain, unspecified back pain laterality, unspecified whether sciatica present (Primary Dx) Social History Tobacco Use Types [...] as of this encounter Progress Notes * Jeannette Thomas RN - 01/03/2025 11:30 AM EST S: Pt here for ROTARY DRILL OPERATOR HELPER Revisit, translation provided by staff member Sally Murray Prescribed Tramadol 50mg Q8hr PRN. States she has been taking between 1-2 doses a day, last dose taken was this morning.She denies smoking cigarettes, ETOH use, illicit drug use and marijuana use. Currently rates her pain a 5 and states medication is 100% effective at alleviating her pain. Current pain sites are all her joints, knee's, hands, shoulders and her back. Pt recently had all her upper teeth removed. O: ROTARY DRILL OPERATOR HELPER Tier 2. Pt currently prescribed .Tramadol 50mg Q8hr PRN DIRECTOR OF ENTERPRISE ARCHITECTURE verified today. Rx last filled on 12/06/24. Pill count performed. Pt has 27 pills at this time, 0 at least expected. Medication is not overused by patient. Advised to call for refill when she has 9 pills remaining. UTOX completed. Positive for TCA, Negative for AMP, BAR, BUP, BZO, KARTIK, FTY, MDMA, MET, MOP, MTD, OXY, PCP, THC. UTOX as expected. Last PCP visit was 11/08/24. A: ROTARY DRILL OPERATOR HELPER Revisit: Chronic Opioid use related to pain. P: Pt to continue taking medication only as prescribed; Next ROTARY DRILL OPERATOR HELPER RV appointment scheduled for 03/22/25 @ 11:30a, F/U sooner PRN. Appointment reminder given. Pt verbalized understanding and agreed to plan. documented in this encounter Plan of Treatment Upcoming Encounters Date Type Department Care Team (Late st Contact Info) Description 03/16/2025 1:45 PM EDT Office Visit [address] [address] Rosalba Shin MD [address] [place] [address] 03/22/2025 11:30 AM EDT Clinical Support [address] [phone] Jeannette Thomas RN documented as of this encounter Procedures Procedure Name Priority Date/Time Associated Diagnosis Comments POCT JUVE-14 URINE DRUG SCREEN Routine 01/03/2025 11:37 AM EST Chronic low back pain, unspecified back pain laterality, unspecified whether sciatica present documented in this encounter Results * POCT JUVE-14 Urine Drug Screen (01/03/2025 11:37 AM EST) TCA, Urine Positive Urine Urine specimen obtained by clean catch procedure / Unknown 01/03/2025 11:37 AM EST Narrative Jeannette Thomas RN - 01/03/2025 11:37 AM EST UTOX cup Lot#[id number] Exp. 07/05/26 Internal Pass Control Rosalba Kingsley MD POINT OF CARE TEST EN TER/EDIT ORDERABLES Final Result documented in this encounter Visit Diagnoses Diagnosis Chronic low back pain, unspecified back pain laterality, unspecified whether sciatica present- Primary documented in this encounter Additional Health Concerns Assessment Noted Time PHQ-9 Depression Total Score: 0 08/12/20 11:42 AM EDT documented as of this encounter Care Teams Laborer Pole Crew Relationship Specialty Start Date End Date Rosalba Shin MD [address] [place] [phone] PCP - General Family Medicine 12/26/20 documented as of this encounter
--- OUTSIDE RECORDS SUMMARY | 2025-01-18 15:28 | XMS_ITS | Encounter Summary ---
Author Organization [employer] Address 75 [facility] 7t [place] [address] Care Team Providers Care Shipfitter Name Role Phone Rosalba Shin MD Primary Care Provide r Reason for Visit * Reason Comments Med Refill Encounter Details Date Type Department Care Team ([facility] st Contact Info) Description 01/18/[address] [facility]INE 230 [place], [place] [phone] Rosalba Shin MD 230 [place] [address] Chronic low back pain, unspecified back pain [...] Description 03/16/2025 1:45 PM EDT Office Visit [facility]ICINE [address] [place] [phone] Rosalba Shin MD [address] [place] [address] 03/22/2025 11:30 AM EDT Clinical Support [address] [address] Jeannette Thomas RN documented as of this encounter Visit Diagnoses Diagnosis Chronic low back pain, unspecified back pain laterality, unspecified whether sciatica present documented in this encounter Additional Health Concerns Assessment Noted Time PHQ-9 Depression Total Score: 0 08/12/20 24 11:42 AM EDT documented as of this encounter Care Teams Shipfitter Relationship Specialty Start Date End Date Rosalba Shin MD [address] [place] [phone] PCP - General Family Medicine 12/26/20 documented as of this encounter
--- OUTSIDE RECORDS SUMMARY | 2025-01-18 15:28 | XMS_ITS | Encounter Summary ---
Author Organization [email or web address] Address 75 [facility] 7t [place] [address] Care Team Providers Care Supervisor Cook House Name Role Phone Rosalba Shin MD Primary Care Provide r Reason for Visit * Reason Comments Med Refill Encounter Details Date Type Department Care Team ([facility] st Contact Info) Description 01/12/2025 Refill [facility] 230 [place], [place] [phone] Rosalba Shin MD 230 [place], [place] [phone] Fibromyalgia; Primary insomnia; Hot flashes due to menopause; Rash Social History Tobacco Use Types Packs/Day Years [...] Description 03/16/2025 1:45 PM EDT Office Visit [facility] [address] [place] [address] Rosalba Shin MD [address] [place] [address] 03/22/2025 11:30 AM EDT Clinical Support [address] [address] Jeannette Thomas RN documented as of this encounter Visit Diagnoses Diagnosis Fibromyalgia Unspecified myalgia and myositis Primary insomnia Persistent disorder of initiating or maintaining sleep Hot flashes due to menopause Rash Rash and other nonspecific skin eruption documented in this encounter Additional Health Concerns Assessment Noted Time PHQ-9 Depression Total Score: 0 08/12/20 24 11:42 AM EDT documented as of this encounter Care Teams Supervisor [employer] House Relationship Specialty Start Date End Date Rosalba Shin MD [address] [place] [phone] PCP - General Family Medicine 12/26/20 documented as of this encounter
== END 2025-01-18 13:46 | disposition home or self-care (01) ==
PROVIDERS: PCP Internal Medicine; Visit Provider Internal Medicine Pulmonary Disease
DX: J45.909 Unspecified asthma, uncomplicated (principal); Z91.09 Other allergy status, other than to drugs and biological substances; M06.9 Rheumatoid arthritis, unspecified
CPT/HCPCS: 99214

== ENCOUNTER 2025-03-16 14:28 | Outpatient (REF) | payer MEDICAID, SELFPAY ==
--- NOTE | ~2025-03-16 | XR_ITS ---
EXAMINATION: XR ANKLE 3 OR MORE VIEWS LEFT HISTORY: acute pain COMPARISON: There are no prior studies available for comparison. FINDINGS: Three views of the left ankle are submitted. Osseous mineralization is normal. There is no fracture or dislocation. The joint spaces are preserved. There are calcaneal spurs at the plantar aspect and at the insertion of the Achilles tendon. The soft tissues are unremarkable. XR/XR ankle LT min 3V IMPRESSION: Calcaneal spurs as described. Otherwise unremarkable examination of the left ankle. Electronically signed by: Jai Weaver MD 03/16/2025 03:41 PM EDT
--- OUTSIDE RECORDS SUMMARY | 2025-03-16 16:33 | XMS_ITS | Encounter Summary ---
Author Organization [facility] Address [address] [facility] 7[address] [place] [address] Care Team Providers Care Pantograph Engraver Name Role Phone Rosalba Shin MD Primary Care Provide r Reason for Referral * Imaging (Routine) - Authorized Specialty Diagnoses / Procedures Referred By Rosette t Referred To Contact Radiology Diagnoses Encounter for screening mammogram for malignant neoplasm of breast Procedures BI Mammogram Screening Tomosynthesis Bilateral Rosalba Shin MD [address] [place] [phone] Phone: tel: fax: [address] Phone: tel: fax: Referral ID Status Reason Start Date Expiration Date V isits Requested Visits Authorized [id number] Authorized 03/16/2025 03/16/2026 1 1 * Consultation (Routine) - Pending Review Specialty Diagnoses / Procedures Referred By Controhan t Referred To Contact Cardiology Diagnoses Atypical chest pain Rosalba Shin MD [address] [place] [address] Phone: tel: fax: Referral ID Status Reason Start Date Expiration Date Visits Requested Visits Authorized [id number] Pending Review Specialty Services Required 03/16/2025 03/16/2026 1 1 * Consultation (Routine) - Pending Review Specialty Diagnoses / Procedures Referred By Rosette galvan Referred To Contact Orthopaedic Surgery Diagnoses Chronic pain of left knee Rosalba Shin MD [address] [place] [address] Phone: tel: fax: Referral ID Status Reason Start Date Expiration Date Visits Requested Visits Authorized [id number] Pending Review Specialty Services Required 03/16/2025 03/16/2026 1 1 * Imaging (Routine) - Authorized Specialty Diagnoses / Procedures Referred By Rosette galvan Referred To Contact Radiology Diagnoses Chronic pain of left knee Procedures MR Knee w/o Contrast Left Rosalba Shin MD [address] [place] [address] Phone: tel: fax: [address] Phone: tel: fax: Referral ID Status Reason Start Date Expiration Date V isits Requested Visits Authorized [id number] Authorized 03/16/2025 03/16/2026 1 1 Reason for Visit * Reason Comments Follow-up Encounter Details Date Type Department Care Team (Late st Contact Info) Description 03/16/2025 1:45 PM EDT Office Visit [facility] [address] [place] [phone] Rosalba Shin MD [address] [place] [address] [phone] Type 2 diabetes mellitus without complication, without long-term current use of insulin (CMS/HCC); Essential hypertension; Chronic pain of left knee; Chronic pain of left ankle; Atypical chest pain; Rheumatoid arthritis involving multiple sites with positive rheumatoid factor (CMS/HCC); Fibromyalgia; Encounter for screening mammogram for malignant neoplasm of breast; Primary insomnia; Rash; Other constipation; Hypothyroidism, unspecified type; Iron deficiency anemia, unspecified iron deficiency anemia type Social History Tobacco Use Types Packs/Day Years [...] Answer Date Recorded Internet Access Q1 No 03/09/2025 Internet Access Q2 I do not want or need it 02/15 Comments Unknown Sex and Gender Information Value Date Recorded Sex Assigned at Female 09/15/2022 10:14 AM EDT Legal Sex Female 10:14 AM EDT Gender Identity Female 09/15/2022 10:14 AM EDT Sexual Orientation Straight 09/15/2022 10 :14 AM EDT documented as of this encounter Last Filed Vital Signs Vital Sign Reading Time Taken Comments Blood Pressure 125/90 03/16/2025 1:47 PM EDT Pulse 96 03/16/2025 1:47 PM EDT Temperature 36.3 ??C (97.3 ??F) 03/16/2025 1:47 PM ED T Respiratory Rate - - Oxygen Saturation 99% 03/16/2025 1:47 PM EDT Inhaled Oxygen Concentration - - Weight 90.5 kg (199 lb 8 oz) 03/16/2025 1:47 PM EDT Height 165.1 cm (5' 5 ) 03/16/2025 1:47 PM EDT Body Mass Index 33.2 03/16/2025 1:47 PM EDT documented in this encounter Progress Notes * Rosalba Kingsley MD - 03/16/2025 1:45 PM EDT SUBJECTIVE: Kerline Gutierrez is a 59 y.o. year old female who presents for Chronic Disease Management . Acute Concerns: Patient reports she has been having pain and swelling of her left knee, problem is chronic but has been worse lately Patient reports she was playing outside during with grandchildren and accidentally she hurt her left ankle, she did not seek medical attention at that point she has been using ankle brace using ice and taking pain meds, she reports she feels a little better but still has been having pain in her ankle Patient tells me disseminated pain bone pain has been worse lately reports she wakes up in the middle of the night with pain, she tells me medication does help her but it has not been enough Patient tells me she came in due to chest pain few months ago and was sent to the emergency room for this chest pain but nothing was done, she denies any current chest pain Social History Social History Narrative Not on file Patient Active Problem List Diagnosis Acquired hypothyroidism Hypertensive disorder Mixed anxiety and depressive disorder Rheumatoid arthritis involving multiple sites with positive rheumatoid factor (CMS/HCC) Sjogrens syndrome (CMS/HCC) Type 2 diabetes mellitus (CMS/HCC) Allergic rhinitis Chronic low back pain Constipation Heartburn Hypercholesterolemia Obesity Perimenopause Postphlebitic syndrome Rash Spinal stenosis of lumbar region Essential hypertension Fibromyalgia Encounter for screening mammogram for malignant neoplasm of breast Bilateral carpal tunnel syndrome Hot flashes due to menopause Dermatitis Encounter for Papanicolaou smear for cervical cancer screening Pain in toe Lipoma Breast nodule Atopic dermatitis of scalp Lipoma of breast Bronchitis Mild intermittent asthma with exacerbation Severe dental caries Dental abscess Moderate asthma Hypokalemia Dry eye Pathologic myopia, bilateral Chronic pain of left knee Chronic pain of left ankle Atypical chest pain No family history on file. Review of Systems Constitutional: Positive for fatigue. Negative for activity change, appetite change, chills, diaphoresis, fever and unexpected weight change. HENT: Negative. Respiratory: Negative. Cardiovascular: Negative. Musculoskeletal: Positive for arthralgias, back pain and myalgias. OBJECTIVE: Vitals: 03/16/25 1347 BP: (!) 125/90 BP Location: Left arm Patient Position: Sitting BP Cuff Size: Adult Pulse: 96 Temp: 97.3 ??F (36.3 ??C) TempSrc: Oral SpO2: 99% Weight: 199 lb 8 oz (90.5 kg) Height: 5' 5 (1.651 m) Physical Exam Constitutional: Appearance: Normal appearance. Cardiovascular: Rate and Rhythm: Normal rate and regular rhythm. Pulmonary: Effort: Pulmonary effort is normal. Breath sounds: Normal breath sounds. Abdominal: General: Abdomen is flat. Palpations: Abdomen is soft. Musculoskeletal: Left knee: Swelling present. Decreased range of motion. Tenderness present. Right lower leg: No edema. Left lower leg: No edema. Left ankle: Tenderness present. Decreased range of motion. Neurological: Mental Status: She is alert. Follow Up: Follow up in about 4 weeks (around 04/13/2025) for televisit fibromyalgia. Current Outpatient Medications on File Prior to Visit Medication Sig Dispense Refill [DISCONTINUED] levothyroxine (Synthroid, Levoxyl) 25 MCG tablet TAKE 1 TABLET BY MOUTH EVERY DAY INTHE MORNING 90 tablet 0 [DISCONTINUED] senna (Senokot) 8.6 MG tablet TAKE 1 TABLET BY MOUTH ONE OR TWO TIMES DAILY NEEDED 180 tablet 1 [DISCONTINUED] traMADol (Ultram) 50 MG tablet TAKE 1 TABLET BY MOUTH EVERY 8 HOURS NEEDED FOR SEVERE PAIN FOR UP TO 28 DAYS 84 tablet 0 acetaminophen (Tylenol) 500 MG tablet Take 1 tablet (500 mg) by mouth every 6 (six) hours if neededfor mild pain for up to 20 doses. 20 tablet 0 albuterol (Ventolin HFA) 108 (90 Base) MCG/ACT inhaler INHALE 2 PUFFS BY MOUTH FOUR TIMES DAILY NEEDED 18 g 1 Alcohol Swabs 70 % pads Asmanex HFA 200 MCG/ACT aerosol INHALE 1 PUFF BY MOUTH EVERY TWELVE HOURS. RINSE MOUTH AFTER USING.13 g 2 Blood Glucose Monitoring Suppl (Blood Glucose Monitor [...] HOURS 90 tablet 1 Deep [place] Nasal [place]ade 0.65 % nasal spray SPRAY 2 SPRAYS [...] FOUR TIMES DAILY DIRECTED 100 g 1 Fluocinolone Acetonide Scalp 0.01 % oil APPLY TOPICALLY TO THE AFFECTED AREA(S) 3 TIMES A WEEK AT NIGHT WITH COVER ON HEAD, [...] each 2 times daily. 100 each 2 lidocaine (Lidoderm) 5 % patch APPLY 1 PATCH TOPICALLY TO SKIN, LEAVE ON FOR 12 HOURS AND OFF FOR 12 HOURS DIRECTED 30 patch 1 lisinopril 10 MG tablet Take 1 tablet (10 mg) by mouth in the morning. 30 tablet 11 loratadine (Claritin) 10 MG tablet TAKE 1 TABLET BY MOUTH EVERY DAY NEEDED 90 tablet 3 naloxone (Narcan) 4 mg/0.1 mL nasal spray Administer 1 spray (4 mg) into affected nostril(s) if needed for opioid reversal. May repeat every 2-3 minutes if needed, alternating nostrils, until medicalassistance becomes available. (Patient not taking: Reported on 12/02/2024) 2 each 3 omeprazole OTC (PriLOSEC OTC) 20 MG EC tablet 1 tablet by mouth once a day rosuvastatin (Crestor) 20 MG tablet Take 1 tablet (20 mg) by mouth Once per day. 30 tablet 11 Skin Protectants, Misc. (eucerin) cream Apply topically every 12 (twelve) hours. TRUEplus Lancets 33G misc USE TO TEST BLOOD SUGAR TWICE DAILY 100 each 1 TRUEplus Lancets 33G misc 1 each 2 times daily. 100 each 11 venlafaxine XR (Effexor XR) 37.5 MG 24 hr capsule TAKE 1 CAPSULE BY MOUTH TWICE DAILY. DO NOT BREAK, CRUSH, DISSOLVE OR CHEW 60 capsule 2 Ventolin HFA 108 (90 Base) MCG/ACT inhaler INHALE 2 PUFFS BY MOUTH EVERY 6 HOURS NEEDED FOR WHEEZING 18 g 1 zoster vaccine-recombinant adjuvanted (Shingrix) 50 MCG/0.5ML vaccine Inject 0.5 mL into the shoulder, thigh, or buttocks. [DISCONTINUED] acetaminophen (Tylenol 8 Hour) 650 MG ER tablet TAKE 1 TABLET BY MOUTH EVERY 8 HOURSAS NEEDED FOR MILD PAIN FOR UP TO 10 DAYS, DO NOT BREAK, CRUSH, DISSOLVE OR CHEW 30 tablet 0 [DISCONTINUED] Aspirin Low Dose 81 MG EC tablet TAKE 1 TABLET BY MOUTH EVERY MORNING 90 tablet 1 [DISCONTINUED] betamethasone, augmented, (Diprolene) 0.05 % ointment APPLY TOPICALLY TO THE AFFECTED AREA(S) TWICE DAILY DIRECTED 15 g 0 [DISCONTINUED] Ferrous Sulfate (iron) 325 (65 Fe) MG tablet TAKE 1 TABLET BY MOUTH TWICE DAILY WITHORANGE JUICE 180 tablet 0 [DISCONTINUED] levothyroxine (Synthroid, Levoxyl) 200 MCG tablet TAKE 1 TABLET BY MOUTH EVERY DAY 90 tablet 0 [DISCONTINUED] zolpidem (Ambien) 10 MG tablet TAKE 1 TABLET BY MOUTH EVERY DAY AT BEDTIME NEEDEDFOR SLEEP 30 tablet 0 No current facility-administered medications on file prior to visit. Problem List Items Addressed This Visit Type 2 diabetes mellitus ([facility]) Relevant Orders POCT Glucose (Completed) POCT HGB A1C (Completed) Essential hypertension Continues to be under control advised low-sodium diet and continue with the medication Relevant Medications aspirin (Aspirin Low Dose) 81 MG EC tablet Chronic pain of left knee I order an MRI x-ray already done, and I will refer patient to orthopedics Relevant Orders MR Knee w/o Contrast Left Referral to Orthopaedic Surgery Chronic pain of left ankle I will order an x-ray and contact patient with results Relevant Orders XR Ankle 3+ Views Left Atypical chest pain Relevant Orders Referral to Cardiology Rheumatoid arthritis involving multiple sites with positive rheumatoid factor ([facility]) Patient reports she does have a rheumatology appointment on August 2025 I advised not to miss his appointment Fibromyalgia Patient was educated about multidisciplinary approach for her condition, it was advise cardiovascular exercise, maintain hydration, treat anxiety/depression and take medications as directed I will start patient on gabapentin 100 mg 3 times a day and I will call her in about 4 weeks to follow-up Relevant Medications gabapentin (Neurontin) 100 MG capsule traMADol (Ultram) 50 MG tablet acetaminophen (Tylenol 8 Hour) 650 MG ER tablet Encounter for screening mammogram for malignant neoplasm of breast Relevant Orders BI Mammogram Screening Tomosynthesis Bilateral Rash Relevant Medications betamethasone, augmented, (Diprolene) 0.05 % ointment Constipation Relevant Medications senna (Senokot) 8.6 MG tablet Other Visit Diagnoses Primary insomnia Relevant Medications zolpidem (Ambien) 10 MG tablet Hypothyroidism, unspecified type Relevant Medications levothyroxine (Synthroid, Levoxyl) 25 MCG tablet levothyroxine (Synthroid, Levoxyl) 200 MCG tablet Iron deficiency anemia, unspecified iron deficiency anemia type Relevant Medications Ferrous Sulfate (iron) 325 (65 Fe) MG tablet documented in this encounter Miscellaneous Notes * Assessment & Plan Note - Rosalba Kingsley MD - 03/16/2025 2:39 PM EDT Associated Problem(s): Rheumatoid arthritis involving multiple sites with positive rheumatoid factor ([facility]) Patient reports she does have a rheumatology appointment on August 2025 I advised not to miss his appointment * Assessment & Plan Note - Rosalba Kingsley MD - 03/16/2025 2:39 PM EDT Associated Problem(s): Fibromyalgia Patient was educated about multidisciplinary approach for her condition, it was advise cardiovascular exercise, maintain hydration, treat anxiety/depression and take medications as directed I will start patient on gabapentin 100 mg 3 times a day and I will call her in about 4 weeks to follow-up * Assessment & Plan Note - Rosalba Kingsley MD - 03/16/2025 2:38 PM EDT Associated Problem(s): Chronic pain of left knee I order an MRI x-ray already done, and I will refer patient to orthopedics * Assessment & Plan Note - Rosalba Kingsley MD - 03/16/2025 2:38 PM EDT Associated Problem(s): Chronic pain of left ankle I will order an x-ray and contact patient with results * Assessment & Plan Note - Rosalba Kingsley MD - 03/16/2025 2:38 PM EDT Associated Problem(s): Essential hypertension Continues to be under control advised low-sodium diet and continue with the medication documented in this encounter Plan of Treatment Upcoming Encounters Date Type Department Care Team (Late st Contact Info) Description 04/20/2025 10:45 AM EDT Telemedicine [facility] [address] [place] [phone] Rosalba Shin MD [address] [place] [address] 05/05/2025 11:15 AM EDT Office Visit [facility] [address] [place] [address] Alban Diaz MD [address] [place] [address] 05/25/2025 11:15 AM EDT Office Visit [facility] [address] [place] [address] Aidee Miller, OD [address] [place], [place] [phone] Scheduled Orders Name Type Priority Associated Diagnoses Orde r Schedule MR Knee w/o Contrast Left Imaging Routine Chronic pain of left knee Expected: 03/16/2025, Expires: 03/16/2026 BI Mammogram Screening Tomosynthesis Bilateral Imaging Routine Encounter for screening mammogram for malignant neoplasm of breast Expected: 03/16/2025, Expires: 05/16/2026 Scheduled Referrals Name Type Priority Associated Diagnoses Order Schedule Referral to Orthopaedic Surgery Outpatient Referral Routine Chronic pain of left knee Expected: 03/16/2025 (Approximate), Expires: 03/16/2026 Referral to Cardiology Outpatient Referral Routine Atypical chest pain Expected: 03/16/2025 (Approximate), Expires: 03/16/2026 documented as of this encounter Procedures Procedure Name Priority Date/Time Associated Diagnosis Comments XR ANKLE 3+ VIEWS LEFT Routine 03/16/2025 2:29 PM EDT Chronic pain of left ankle POCT GLYCATED HEMOGLOBIN, TOTAL Routine 03/16/2025 1:53 PM EDT Type 2 diabetes mellitus without complication, without long-term current use of insulin ([facility]) POCT GLUCOSE Routine 03/16/2025 1:49 PM EDT Type 2 diabetes mellitus without complication, without long-term current use of insulin ([facility]) documented in this encounter Results * XR Ankle 3+ Views Left (03/16/2025 2:29 PM EDT) Anatomical Region Laterality Modality Lower Extremities, Ankle Left Radiogr aphic Imaging 03/16/2025 2:29 PM EDT Narrative 03/16/2025 3:43 PM EDT ?[facility] ?[address] ?[place] [address] ?XRay Report ? Signed ? Patient: Gutierrez,Kerline ?MR#: [id number] ? : 1965 ?Acct:[id number] ? Age/Sex: 59 / F ?ADM Date: 03/16/25 ? Loc: HO.HHCX ? Attending Dr: Rosalba Kingsley MD ? Ordering Physician: Rosalba Shin MD ?? Date of Service: 03/16/25 ?? Procedure(s): XR ankle LT min 3V ?? Accession Number(s): [id number] ? cc: Rosalba Shin MD ? EXAMINATION: ??XR ANKLE 3 OR MORE VIEWS LEFT ? HISTORY: acute pain ? COMPARISON: There are no prior studies available for comparison. ? FINDINGS: ? Three views of the left ankle are submitted. ??Osseous mineralization is ?? normal. ??There is no fracture or dislocation. ??The joint spaces are ?? preserved. There are calcaneal spurs at the plantar aspect and at the ?? insertion of the Achilles tendon. ??The soft tissues are unremarkable. ? XR/XR ankle LT min 3V ?? IMPRESSION: ? Calcaneal spurs as described. Otherwise unremarkable examination of the ?? left ankle. ? Electronically signed by: ??Jai Weaver MD ??03/16/2025 03:41 PM EDT ? Dictated By: ?Jai Weaver MD ? Signed By: ?<Electronically signed by Jai Weaver MD in OV> ?03/16/25 1541 ? DD/ 1429 ? TD/TT: 03/16/25 1500 ? [employer]: ? Procedure Note Flavia, Image - 03/16/[address] [address] XRay Report Signed Patient: Diana Gutierrez#: [id number] : 1965Acct:[id number] Age/Sex: 59 / FADM Date: 03/16/25 Loc: HO.HHCX Attending Dr: Rosalba Kingsley MD Ordering Physician: Rosalba Shin MD Date of Service: 03/16/25 Procedure(s): XR ankle LT min 3V Accession Number(s): [id number] cc: Rosalba Shin MD EXAMINATION: XR ANKLE 3 OR MORE VIEWS LEFT HISTORY: acute pain COMPARISON: There are no prior studies available for comparison. FINDINGS: Three views of the left ankle are submitted. Osseous mineralization is normal. There is no fracture or dislocation. The joint spaces are preserved. There are calcaneal spurs at the plantar aspect and at the insertion of the Achilles tendon. The soft tissues are unremarkable. XR/XR ankle LT min 3V IMPRESSION: Calcaneal spurs as described. Otherwise unremarkable examination of the left ankle. Electronically signed by: Jai Weaver MD 03/16/2025 03:41 PM EDT RP Dictated By: Jai Weaver MD Signed By: <Electronically signed by Jai Weaver MD in OV> 03/16/25 1541 DD/ 1429 TD/TT: 03/16/25 1500 [employer] [facility]: Rosalba Kingsley MD IMG XR PROCEDURES Fin al Result * POCT HGB A1C (03/16/2025 1:53 PM EDT) Hemoglobin A1C 5.0 4.0 - 6.0 % QC Media Lot # [id number] Lot# Expiration Date 11,727 Blood 03/16/2025 1:53 PM EDT Rosalba Kingsley MD POINT OF CARE TEST EN TER/EDIT ORDERABLES Final Result * POCT Glucose (03/16/2025 1:49 PM EDT) Glucose Blood, POC 154 60 - 200 mg/dL QC Media Lot # [id number] Lot# Expiration Date 101,425 Blood Capillary blood specimen / Unknown 03/16/2025 1:49 PM EDT Rosalba Kingsley MD POINT OF CARE TEST EN TER/EDIT ORDERABLES Final Result documented in this encounter Visit Diagnoses Diagnosis Type 2 diabetes mellitus without complication, without long-term current use of insulin ([facility]) Essential hypertension Unspecified essential hypertension Chronic pain of left knee Chronic pain of left ankle Atypical chest pain Other chest pain Rheumatoid arthritis involving multiple sites with positive rheumatoid factor (CMS/HCC) Fibromyalgia Unspecified myalgia and myositis Encounter for screening mammogram for malignant neoplasm of breast Primary insomnia Persistent disorder of initiating or maintaining sleep Rash Rash and other nonspecific skin eruption Other constipation Hypothyroidism, unspecified type Iron deficiency anemia, unspecified iron deficiency anemia type documented in this encounter Additional Health Concerns Assessment Noted Time PHQ-9 Depression Total Score: 0 08/12/20 24 11:42 AM EDT documented as of this encounter Care Teams Pantograph Engraver Relationship Specialty Start Date End Date Rosalba Shin MD [address] [place] [address] PCP - General Family Medicine 12/26/20 documented as of this encounter
--- OUTSIDE RECORDS SUMMARY | 2025-03-16 16:33 | XMS_ITS | Encounter Summary ---
Author Organization [employer] Address [address] [facility] 7t [place] [address] Care Team Providers Care Repair Electric Motor Assembler Name Role Phone Rosalba Shin MD Primary Care Provide r Reason for Visit * Reason Comments Med Refill Encounter Details Date Type Department Care Team ([facility] st Contact Info) Description 12/02/2024 Refill [facility] [address] [place], [place] [phone] Name, MD Gino [address] [place] [address] Social History Tobacco Use Types Packs/Day Years [...] Info) Description 04/20/2025 10:45 AM EDT Telemedicine [facility] [address] [place] [phone] Rosalba Shin MD [address] [place] [address] 05/05/2025 11:15 AM EDT Office Visit [facility] [address] [place] [phone] Alban Diaz MD [address] [place] [address] 05/25/2025 11:15 AM EDT Office Visit [facility] [address] [place] [address] Aidee Miller, OD [address] [place] [address] documented as of this encounter Visit Diagnoses Not on filedocumented in this encounter Additional Health Concerns Assessment Noted Time PHQ-9 Depression Total Score: 0 08/12/20 24 11:42 AM EDT documented as of this encounter Care Teams Repair Electric Motor Assembler Relationship Specialty Start Date End Date Rosalba Shin MD [address] [place] [address] PCP - General Family Medicine 12/26/20 documented as of this encounter
--- OUTSIDE RECORDS SUMMARY | 2025-03-16 16:33 | XMS_ITS | Encounter Summary ---
Author Organization [employer] Address [address] [facility] [address]t [place] [address] Care Team Providers Care Mill Roll Operator Name Role Phone Rosalba Shin MD Primary Care Provide r Reason for Visit * Reason Comments Med Refill Encounter Details Date Type Department Care Team ([facility] st Contact Info) Description 03/16/2025 Refill [facility] [address] [place], [place] [phone] Rosalba Shin MD [address] [place], [place] [phone] Fibromyalgia; Primary insomnia; Rash; Essential hypertension; Other constipation; Hypothyroidism, unspecified type; Iron deficiency [...] your housing situation today? I have asilaja sil 06/20/[address] you [...] Info) Description 04/20/2025 10:45 AM EDT Telemedicine [facility] [address] [place] [address] Rosalba Shin MD [address] [place] [address] 05/05/2025 11:15 AM EDT Office Visit [facility] [address] [place] [address] Alban Diaz MD [address] [place] [address] 05/25/2025 11:15 AM EDT Office Visit [facility] [address] [place] [address] Aidee Miller, RUDDY [address] [place] [address] documented as of this encounter Visit Diagnoses Diagnosis Fibromyalgia Unspecified myalgia and myositis Primary insomnia Persistent disorder of initiating or maintaining sleep Rash Rash and other nonspecific skin eruption Essential hypertension Unspecified essential hypertension Other constipation Hypothyroidism, unspecified type Iron deficiency anemia, unspecified iron deficiency anemia type documented in this encounter Additional Health Concerns Assessment Noted Time PHQ-9 Depression Total Score: 0 08/12/20 24 11:42 AM EDT documented as of this encounter Care Teams Mill Roll Operator Relationship Specialty Start Date End Date Rosalba Shin MD [address] [place] [address] PCP - General Family Medicine 12/26/20 documented as of this encounter
--- OUTSIDE RECORDS SUMMARY | 2025-03-16 16:33 | XMS_ITS | Encounter Summary ---
Author Organization [employer] Address [address] [facility] 7t [place] [address] Care Team Providers Care Flatwork Ironer Name Role Phone Rosalba Shin MD Primary Care Provide r Reason for Visit * Reason Comments Med Refill Encounter Details Date Type Department Care Team ([facility] st Contact Info) Description 06/08/2024 Refill [facility] MEDICINE [address] [place], [place] [phone] Rosalba Shin MD [address] [place], [place] [phone] Fibromyalgia Social History Tobacco Use Types Packs/Day [...] Info) Description 04/20/2025 10:45 AM EDT Telemedicine [facility] MEDICINE [address] [place] [phone] Rosalba Shin MD [address] [place] [phone] 05/05/2025 11:15 AM EDT Office Visit [facility] MEDICINE [address] [place] [phone] Alban Diaz MD [address] [place] [address] 05/25/2025 11:15 AM EDT Office Visit [facility] OPTOMETRY [address] [place] [address] TarAidee becerra, OD [address] [place] [address] documented as of this encounter Visit Diagnoses Diagnosis Fibromyalgia Unspecified myalgia and myositis documented in this encounter Additional Health Concerns Assessment Noted Time PHQ-9 Depression Total Score: 7 04/06/20 23 2:10 PM EDT documented as of this encounter Care Teams Flatwork Ironer Relationship Specialty Start Date End Date Rosalba Shin MD [address] [place] [phone] PCP - General Family Medicine 12/26/20 documented as of this encounter
--- OUTSIDE RECORDS SUMMARY | 2025-03-16 16:33 | XMS_ITS | Clinical Summary ---
Author Organization [facility] Address [address] [place] [address] Care Team Providers Care Criminal Intelligence Analyst Name Role Phone Unavailable Primary Care Provider Unavailabl e Social History Tobacco Use Types Packs/Day Years Used Date Smoking Tobacco: Never Assessed Comments Unknown Sex and Gender Information Value Date Recorded Sex Assigned at Not on file Legal Sex Female 6:18 PM EST Gender Identity Not on file Sexual Orientation [...]
--- OUTSIDE RECORDS SUMMARY | 2025-03-16 16:33 | XMS_ITS | Encounter Summary ---
Author Organization [employer] Address [address] [facility] 7t [place] [address] Care Team Providers Care Manager Cosmetic Name Role Phone Rosalba Shin MD Primary Care Provide r Encounter Details Date Type Department Care Team (Late st Contact Info) Description 08/26/2023 Abstract [facility] MEDICINE [address] [place] [address] Rosalba Shin MD [address] [place] [address] Social History Tobacco Use Types Packs/Day Years [...] t he electric, gas, oil or water [employer] threatened to shut off services in your [...] 04/20/2025 10:45 AM EDT Telemedicine [facility] MEDICINE [address] [place] [address] Rosalba Shin MD [address] [place] [address] 05/05/2025 11:15 AM EDT Office Visit [facility] MEDICINE [address] [place] [address] Alban Diaz MD [address] [place] [address] 05/25/2025 11:15 AM EDT Office Visit [facility] OPTOMETRY [address] [place] [address] TarkaAidee, OD [address] [place] [address] documented as of this encounter Procedures Procedure Name Priority Date/Time Associated Diagnosis Comments COLONOSCOPY Routine 06/01/2018 documented in this encounter Results * Colonoscopy (06/01/2018) Colonoscopy Normal Normal Narrative KizzyAditi - 06/01/2018 Recommended 10 year follow up us Historical Provider HEALTH MAINTENANCE Final Result documented in this encounter Visit Diagnoses Not on filedocumented in this encounter Additional Health Concerns Assessment Noted Time PHQ-9 Depression Total Score: 7 04/06/20 23 2:10 PM EDT documented as of this encounter Care Teams Manager Cosmetic Relationship Specialty Start Date End Date Rosalba Shin MD [address] [place] [phone] PCP - General Family Medicine 12/26/20 documented as of this encounter
--- OUTSIDE RECORDS SUMMARY | 2025-03-16 16:33 | XMS_ITS | Encounter Summary ---
Author Organization [employer] [facility] Address [address] [place] [address] 7t [place] [address] Care Team Providers Care License Inspector Name Role Phone Rosalba Shin MD Primary Care Provide r Reason for Visit * Reason Comments Med Refill Encounter Details Date Type Department Care Team (Late st Contact Info) Description 03/10/2023 Refill [facility] [address] [place] [address] [phone] Name, MD Gino [address] [place] [address] [phone] Chronic low back pain, unspecified back pain [...] Info) Description 04/20/2025 10:45 AM EDT Telemedicine [facility] [address] [place] [address] [phone] Rosalba Shin MD [address] [place] [address] [phone] 05/05/2025 11:15 AM EDT Office Visit [facility] [address] [place] [address] Alban Diaz MD [address] [place] [address] 05/25/2025 11:15 AM EDT Office Visit [facility] OPTOMETRY [address] [place] [address] Aidee Miller, OD [address] [place] [address] documented as of this encounter Visit Diagnoses Diagnosis Chronic low back pain, unspecified back pain laterality, unspecified whether sciatica present documented in this encounter Care Teams License Inspector Relationship Specialty Start Date End Date Rosalba Shin MD [address] [place] [phone] PCP - General Family Medicine 12/26/20 documented as of this encounter
--- OUTSIDE RECORDS SUMMARY | 2025-03-16 16:33 | XMS_ITS | Encounter Summary ---
Author Organization [employer] Address [address] [facility] 7t [place] [address] Care Team Providers Care Professor Of Business Name Role Phone Rosalba Shin MD Primary Care Provide r Reason for Visit * Reason Comments Med Refill Encounter Details Date Type Department Care Team ([facility] st Contact Info) Description 10/22/2023 Refill [facility] MEDICINE [address] [place], [place] [phone] Maria L Navarro MD [address] [place], [place] [phone] Chronic low back pain, unspecified back pain [...] Info) Description 04/20/2025 10:45 AM EDT Telemedicine [facility] MEDICINE [address] [place] [phone] Rosalba Shin MD [address] [place] [address] 05/05/2025 11:15 AM EDT Office Visit [facility] MEDICINE [address] [place] [phone] Alban Diaz MD [address] [place] [address] 05/25/2025 11:15 AM EDT Office Visit [facility] OPTOMETRY [address] [place] [address] TarkaAidee, OD [address] [place] [address] documented as of this encounter Visit Diagnoses Diagnosis Chronic low back pain, unspecified back pain laterality, unspecified whether sciatica present documented in this encounter Additional Health Concerns Assessment Noted Time PHQ-9 Depression Total Score: 7 04/06/20 23 2:10 PM EDT documented as of this encounter Care Teams Professor Of Business Relationship Specialty Start Date End Date Rosalba Shin MD [address] [place] [phone] PCP - General Family Medicine 12/26/20 documented as of this encounter
--- OUTSIDE RECORDS SUMMARY | 2025-03-16 16:33 | XMS_ITS | Encounter Summary ---
Author Organization [employer] Address [address] [facility] 7t [place] [address] Care Team Providers Care Controller Coal [employer]re Name Role Phone Rosalba Shin MD Primary Care Provide r Encounter Details Date Type Department Care Team (Latest Contact Info) Description 03/16/2025 Travel Social History Tobacco Use Types Packs/Day [...] Description 04/20/2025 10:45 AM EDT Telemedicine [facility] MEDICINE [address] [place] [phone] Rosalba Shin MD [address] [place] [address] 05/05/2025 11:15 AM EDT Office Visit [facility] MEDICINE [address] [place] [address] Alban Diaz MD [address] [place] [address] 05/25/2025 11:15 AM EDT Office Visit [facility] OPTOMETRY [address] [place] [address] Tarka, Aidee, OD [address] [place] [address] documented as of this encounter Visit Diagnoses Not on filedocumented in this encounter Additional Health Concerns Assessment Noted Time PHQ-9 Depression Total Score: 0 08/12/20 24 11:42 AM EDT documented as of this encounter Care Teams Controller [employer] Relationship Specialty Start Date End Date Rosalba Shin MD [address] [place] [phone] PCP - General Family Medicine 12/26/20 documented as of this encounter
--- OUTSIDE RECORDS SUMMARY | 2025-03-16 16:33 | XMS_ITS | Encounter Summary ---
Author Organization [employer] Address [address] [facility] 7t [place] [address] Care Team Providers Care Pilot Can Router Name Role Phone Rosalba Shin MD Primary Care Provide r Reason for Visit * Reason Comments Med Refill Encounter Details Date Type Department Care Team ([facility] st Contact Info) Description 12/02/2024 Refill [facility] MEDICINE [address] [place], [place] [phone] Ofelia Wright, ANP [address] [place], [place] [phone] Type 2 diabetes mellitus without complication, without long-term current use of insulin ([facility]) Social History Tobacco Use Types Packs/Day Years [...] Description 04/20/2025 10:45 AM EDT Telemedicine [facility] MEDICINE [address] [place] [phone] Rosalba Shin MD [address] [place] [address] 05/05/2025 11:15 AM EDT Office Visit [facility] MEDICINE [address] [place] [address] Alban Diaz MD [address] [place] [address] 05/25/2025 11:15 AM EDT Office Visit [facility] OPTOMETRY [address] [place] [address] Aidee Miller, RUDDY [address] [place] [address] documented as of this encounter Visit Diagnoses Diagnosis Type 2 diabetes mellitus without complication, without long-term current use of insulin ([facility]) documented in this encounter Additional Health Concerns Assessment Noted Time PHQ-9 Depression Total Score: 0 08/12/20 24 11:42 AM EDT documented as of this encounter Care Teams Pilot Can Router Relationship Specialty Start Date End Date Rosalba Shin MD [address] [place] [address] PCP - General Family Medicine 12/26/20 documented as of this encounter
--- OUTSIDE RECORDS SUMMARY | 2025-03-16 16:33 | XMS_ITS | Encounter Summary ---
Author Organization [employer] [facility] Address [address] [place] [address] 7t [place] [address] Care Team Providers Care Licensed Club Manager Name Role Phone Rosalba Shin MD Primary Care Provide r Reason for Visit * Reason Comments Med Refill Encounter Details Date Type Department Care Team (Late st Contact Info) Description 03/17/2023 Refill [facility] MEDICINE [address] [place] [address] [phone] Rosalba Shin MD [address] [place] [address] [phone] Primary insomnia Social History Tobacco Use Types [...] Info) Description 04/20/2025 10:45 AM EDT Telemedicine [facility] MEDICINE [address] [place] [address] [phone] Rosalba Shin MD [address] [place] [address] [phone] 05/05/2025 11:15 AM EDT Office Visit [facility] MEDICINE [address] [place] [address], [place] [address] Alban Diaz MD [address] [place] [address] 05/25/2025 11:15 AM EDT Office Visit [facility] OPTOMETRY [address] [place] [address] Aidee Miller, OD [address] [place], [place] [phone] documented as of this encounter Visit Diagnoses Diagnosis Primary insomnia Persistent disorder of initiating or maintaining sleep documented in this encounter Care Teams Licensed Club Manager Relationship Specialty Start Date End Date Rosalba Shin MD [address] [place], [place] [phone] PCP - General Family Medicine 12/26/20 documented as of this encounter
--- OUTSIDE RECORDS SUMMARY | 2025-03-16 16:33 | XMS_ITS | Clinical Summary ---
Author Organization [employer] Address [address] [facility] [address] [place] [address] Care Team Providers Care Legal Job Titles Name Role Phone Rosalba Shin MD Primary [...] buttocks. 03/16/20 20 Active Deep Sea Nasal Sanderson 0.65 % nasal sprayIndication s:Viral pharyngitis SPRAY [...] complication, without long-term current use of insulin ([facility]) 1 each 2 times daily. 1 kit 09/07/20 Active Lancets miscIndications :Type 2 diabetes mellitus without complication, without long-term current use of insulin ([facility]) 1 each 2 times daily. [...] complication, without long-term current use of insulin ([facility]) USE DIRECTED TO TEST BLOOD SUGAR TWICE DAILY 100 strip 11 05/30/20 Active lisinopril 10 MG tabletIndicatio ns:Hypertension , unspecified type Take 1 tablet (10 mg) by mouth in the morning. 30 tablet 07/13/20 24 2024 Active TRUEplus Lancets 33G miscIndications :Type 2 diabetes mellitus without complication, without long-term current use of insulin ([facility]) USE TO TEST BLOOD SUGAR TWICE DAILY 100 each 1 07/21/20 24 Active Dextromethorpha n-guaiFENesin (Mucinex DM) 30-600 MG tablet sustained-relea se 12 hour TAKE 1 TABLET BY MOUTH THREE TIMES DAILY 28 tablet 07/26/20 24 Active rosuvastatin (Crestor) 20 MG tabletIndicatio ns:Type 2 diabetes mellitus without complication, without long-term current use of insulin ([facility]) Take 1 tablet (20 mg) by mouth Once per day. 30 tablet 08/12/20 24 2024 Active naloxone (Narcan) 4 [...] 20 doses. 20 tablet 12/02/19 25 Active TRUEplus Lancets 33G miscIndications :Type 2 diabetes mellitus without complication, without long-term current use of insulin ([facility]) 1 each 2 times daily. 100 each 11 12/02/19 25 Active albuterol (Ventolin HFA) 108 [...] MORNING 90 tablet 1 12/29/19 25 Active venlafaxine XR (Effexor XR) 37.5 MG 24 hr capsuleIndicati ons:Hot flashes due to menopause TAKE 1 CAPSULE BY MOUTH TWICE DAILY. DO NOT BREAK, CRUSH, DISSOLVE OR CHEW 60 capsule 2 01/13/20 25 Active Diclofenac Sodium 1 % gelIndications: Chronic low back pain, unspecified back pain laterality, unspecified whether sciatica present APPLY 2 GRAMS TOPICALLY TO AFFECTED AREA(S) FOUR TIMES DAILY DIRECTED 100 g 1 01/19/20 25 Active Fluocinolone Acetonide Scalp 0.01 % oilIndications: Folliculitis APPLY TOPICALLY TO THE AFFECTED AREA(S) 3 TIMES A WEEK AT NIGHT WITH COVER ON HEAD, ONCE SYMPTOMS IMPROVE USE 3 TIMES PER MONTH 118.28 mL 1 01/26/20 25 Active cyclobenzaprine (Flexeril) 5 MG tabletIndicatio ns:Pain TAKE 1 TABLET BY MOUTH EVERY 8 HOURS 90 tablet 1 02/07/20 25 Active lidocaine (Lidoderm) 5 % patchIndication s:Chronic low back pain, unspecified back pain laterality, unspecified whether sciatica present APPLY 1 PATCH TOPICALLY TO SKIN, LEAVE ON FOR 12 HOURS AND OFF FOR 12 HOURS DIRECTED 30 patch 1 02/07/20 25 Active gabapentin (Neurontin) 100 MG capsuleIndicati ons:Fibromyalgi a Take 1 capsule (100 mg) by mouth every 8 (eight) hours. 90 capsule 03/16/20 25 2025 Active traMADol (Ultram) 50 MG tabletIndicatio ns:Fibromyalgia Take 1 tablet (50 mg) by mouth every 8 (eight) hours if needed for severe pain. 84 tablet 03/16/20 25 Active zolpidem (Ambien) 10 MG tabletIndicatio ns:Primary insomnia Take 1 tablet (10 mg) by mouth if needed at bedtime for sleep. 30 tablet 03/16/20 25 Active acetaminophen (Tylenol 8 Hour) 650 MG ER tabletIndicatio ns:Fibromyalgia Take 2 tablets (1,300 mg) by mouth every 8 (eight) hours if needed for mild pain. Do not crush, chew, or split. 40 tablet 2 03/16/20 25 Active betamethasone, augmented, (Diprolene) 0.05 % ointmentIndicat ions:Rash Apply topically 2 times daily. 15 g 03/16/20 25 Active aspirin (Aspirin Low Dose) 81 MG EC tabletIndicatio ns:Essential hypertension Take 1 tablet (81 mg) by mouth in the morning. 90 tablet 1 03/16/20 25 Active senna (Senokot) 8.6 MG tabletIndicatio ns:Other constipation Take 1 tablet (8.6 mg) by mouth at bedtime. 90 tablet 1 03/16/20 25 Active levothyroxine (Synthroid, Levoxyl) 25 MCG tabletIndicatio ns:Hypothyroidi sm, unspecified type Take 1 tablet (25 mcg) by mouth in the morning. 90 tablet 03/16/20 25 Active levothyroxine (Synthroid, Levoxyl) 200 MCG tabletIndicatio ns:Hypothyroidi sm, unspecified type Take 1 tablet by mouth every day 90 tablet 03/16/20 25 Active Ferrous Sulfate (iron) 325 (65 Fe) MG tabletIndicatio ns:Iron deficiency anemia, unspecified iron deficiency anemia type TAKE 1 TABLET BY MOUTH TWICE DAILY WITH ORANGE JUICE 180 tablet 03/16/20 25 Active senna (Senokot) 8.6 MG tabletIndicatio ns:Other constipation TAKE 1 TABLET BY MOUTH ONE OR TWO TIMES DAILY NEEDED 180 tablet 1 07/07/20 24 2024 Discontinued(R eorder (will not trigger notification to Pharmacy)) Aspirin Low Dose 81 MG EC tabletIndicatio ns:Essential hypertension TAKE 1 TABLET BY MOUTH EVERY MORNING 90 tablet 1 07/07/20 24 2024 Discontinued(R eorder (will not trigger notification to Pharmacy)) levothyroxine (Synthroid, Levoxyl) 25 MCG tabletIndicatio ns:Hypothyroidi sm, unspecified type TAKE 1 TABLET BY MOUTH EVERY DAY IN THE MORNING 90 tablet 12/02/19 25 2024 Discontinued(R eorder (will not trigger notification to Pharmacy)) levothyroxine (Synthroid, Levoxyl) 200 MCG tabletIndicatio ns:Hypothyroidi sm, unspecified type TAKE 1 TABLET BY MOUTH EVERY DAY 90 tablet 12/02/19 25 2024 Discontinued(R eorder (will not trigger notification to Pharmacy)) Ferrous Sulfate (iron) 325 (65 Fe) MG tabletIndicatio ns:Iron deficiency anemia, unspecified iron deficiency anemia type TAKE 1 TABLET BY MOUTH TWICE DAILY WITH ORANGE JUICE 180 tablet 12/02/19 25 2024 Discontinued(R eorder (will not trigger notification to Pharmacy)) traMADol (Ultram) 50 MG tabletIndicatio ns:Fibromyalgia TAKE 1 TABLET BY MOUTH EVERY 8 HOURS NEEDED FOR SEVERE PAIN FOR UP TO 28 DAYS 84 tablet 01/13/20 25 2024 Discontinued(R eorder (will not trigger notification to Pharmacy)) zolpidem (Ambien) 10 MG tabletIndicatio ns:Primary insomnia TAKE 1 TABLET BY MOUTH EVERY DAY AT BEDTIME NEEDED FOR SLEEP 30 tablet 01/13/20 25 2024 Discontinued(R eorder (will not trigger notification to Pharmacy)) acetaminophen (Tylenol 8 Hour) 650 MG ER tabletIndicatio ns:Fibromyalgia TAKE 1 TABLET BY MOUTH EVERY 8 HOURS NEEDED FOR MILD PAIN FOR UP TO 10 DAYS, DO NOT BREAK, CRUSH, DISSOLVE OR CHEW 30 tablet 01/13/20 25 2024 Discontinued(R eorder (will not trigger notification to Pharmacy)) betamethasone, augmented, (Diprolene) 0.05 % ointmentIndicat ions:Rash APPLY TOPICALLY TO THE AFFECTED AREA(S) TWICE DAILY DIRECTED 15 g 01/13/20 25 2024 Discontinued(R eorder (will not trigger notification to Pharmacy)) gabapentin (Neurontin) 100 MG capsuleIndicati ons:Fibromyalgi a Take 3 capsules (300 mg) by mouth every 8 (eight) hours. 270 capsule 03/16/20 25 2024 Discontinued Active Problems Problem Noted Date Diagnosed Date Chronic pain of left knee 03/16/2025 Assessment & Plan (03/16/2025 2:38 PM EDT): I order an MRI x-ray already done, and I will refer patient to orthopedics Chronic pain of left ankle 03/16/2025 Assessment & Plan (03/16/2025 2:38 PM EDT): I will order an x-ray and contact patient with results Atypical chest pain 03/16/2025 Pathologic myopia, 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 Dry eye 11/08/2024 [...] Dermatitis 08/11/2023 Fibromyalgia 04/06/2023 Assessment & Plan (03/16/2025 2:39 PM EDT): Patient was educated about multidisciplinary approach for her condition, it was advise cardiovascular exercise, maintain hydration, treat anxiety/depression and take medications as directed I will start patient on gabapentin 100 mg 3 times a day and I will call her in about 4 weeks to follow-up Assessment & Plan (11/08/2024 2:03 PM EST): [...] (04/06/2023 3:20 PM EDT): Counseling done today [facility] referral Rheumatoid arthritis involvi ng multiple sites with positive rheumatoid factor 12/19/2015 Assessment & Plan (03/16/2025 2:39 PM EDT): Patient reports she does have a rheumatology appointment on August 2025 I advised not to miss his appointment Sjogrens syndrome 12/19/2015 Type 2 diabetes mellitus [...] 12/19/2015 Essential hypertension 12/19/2015 Assessment & Plan (03/16/2025 2:38 PM EDT): Continues to be under control advised low-sodium diet and continue with the medication Assessment & Plan (07/06/2024 12:03 PM EDT): [...] Encounters Date Type Department Care Team Description 03/16/2025 1:45 PM EDT Office Visit [facility] [address] [place] [phone] Rosalba Shin MD Type 2 diabetes mellitus without complication, without long-term current use of insulin ([facility]); Essential hypertension; Chronic pain of left knee; Chronic pain of left ankle; Atypical chest pain; Rheumatoid arthritis involving multiple sites with positive rheumatoid factor ([facility]); Fibromyalgia; Encounter for screening mammogram for malignant neoplasm of breast; Primary insomnia; Rash; Other constipation; Hypothyroidism, unspecified type; Iron deficiency anemia, unspecified iron deficiency anemia type 03/16/[address] [address] Rosalba Shin MD Fibromyalgia; Primary insomnia; Rash; Essential hypertension; Other constipation; Hypothyroidism, unspecified type; Iron deficiency anemia, unspecified iron deficiency anemia type 03/16/2025 Travel 03/09/2025 Patient Outreach [address] [phone] Rosalba Shin MD Pre-visit Planning (SDOH screening negative and Tobacco screening negative) 02/23/[address] [address] Rosalba Shin MD telephone call 02/04/[address] [phone] Rosalba Shin MD Pain; Chronic low back pain, unspecified back pain laterality, unspecified whether sciatica present 01/27/2025 Population Health Risk Score [facility] ([facility]) Department [address] [phone] Provider, Population Health Generic 01/25/2025 Refill [facility] [address] [place] [address] Rosalba Shin MD Folliculitis 01/18/2025 Orders Only GENERIC EXTERNAL DATA DEPARTMENT Provider, Generic External Data 01/18/2025 Refill [facility] [address] [place] [address] Rosalba Shin MD Chronic low back pain, unspecified back pain laterality, unspecified whether sciatica present 01/12/2025 Refill [facility] [address] [place] [address] Rosalba Shin MD Fibromyalgia; Primary insomnia; Hot flashes due to menopause; Rash 01/03/2025 11:30 AM EST Clinical Support [facility] [address] [place] [address] Jeannette Thomas RN Chronic low back pain, unspecified back pain laterality, unspecified whether sciatica present (Primary Dx) 01/03/2025 Travel 12/29/2024 Refill [facility] [address] [place] [address] Rosalba Shin MD Essential hypertension 12/20/2024 Telephone [facility] [address] [place] [phone] Joya Hauser MA FEBRUARY RECALL from Last 3 Months Immunizations Name Administration [...] 03/16/2025 1:47 PM ED T Respiratory Rate 20 11/14/2024 3:26 PM EST Oxygen Saturation 99% 03/16/2025 1:47 PM EDT Inhaled Oxygen Concentration - - Weight 90.5 kg (199 lb 8 oz) 03/16/2025 1:47 PM EDT Height 165.1 cm (5' 5 ) 03/16/2025 1:47 PM EDT Body Mass Index 33.2 03/16/2025 1:47 PM EDT Plan of Treatment Upcoming Encounters Date Type Department Care Team (Late st Contact Info) Description 04/20/2025 10:45 AM EDT Telemedicine [facility] [address] [place] [phone] Rosalba Shin MD [address] [place] [address] 05/05/2025 11:15 AM EDT Office Visit [facility] [address] [place] [address] Alban Diaz MD [address], [place] 05/25/2025 11:15 AM EDT Office Visit [facility] [address] [place] [address] Aidee Miller, OD [address] [place] [address] Health Maintenance Due Date Last Done Comments CT Colonography 1966 Dental Prophylaxis 1966 FIT DNA/Cologuard 1966 FIT 1966 FOBT 1966 HIV Screening 1966 Sigmoidoscopy 1966 Diabetes: Foot Exam 1976 Hepatitis C Screening 1984 DTaP/Tdap/Td Vaccines (2 - Td or Tdap) 03/24/2023 03/24/2013, 12/26/2005 Dental Oral Exam 09/04/2024 03/04/2024 Mammogram 02/11/2025 02/12/2024, 01/15, 04/21/2023, Additional history exists Dental X-Ray: Bitewings 03/05/2025 03/04/2024 Diabetes: Urine Protein Screening 07/13/2025 07/13/2024, 08/11/2023, 10/18/2020 Lipid Panel 07/13/2025 07/13/2024, 03/17, 07/16/2021, Additional history exists Alcohol/Substance Use Screening 08/12/2025 08/12/2024 Depression Screening 08/12/2025 08/12/2024, 08/12/20 Diabetes: Hemoglobin A1C 09/16/2025 025, 07/04/2024, 02/09/2024, Additional history exists SDOH Screening 03/09/2026 03/09/2025 Tobacco Screening 03/16/2026 03/16/2025 Eye Exam 11/25/2026 11/25/2024, 11/16, 11/25/2024, Additional [...] complication, without long-term current use of insulin ([facility]) POCT GLUCOSE Routine 03/16/2025 1:49 PM EDT Type 2 diabetes mellitus without complication, without long-term current use of insulin ([facility]) RESPIRATORY ALLERGY PROFILE REGION I Routine 01/18/2025 2:00 PM EST BASIC METABOLIC PANEL Routine 01/18/2025 2:00 PM EST Hypokalemia POCT JUVE-14 URINE DRUG SCREEN Routine 01/03/2025 11:37 AM EST Chronic low back pain, unspecified back pain laterality, unspecified whether sciatica present LIPID PANEL WITH REFLEX TO DIRECT LDL Routine 07/13/2024 3:15 PM EDT Type 2 diabetes mellitus without complication, without long-term current use of insulin ([facility]) Essential hypertension ALBUMIN, RANDOM URINE W/CREATININE Routine 07/13/2024 12:00 AM EDT Type 2 diabetes mellitus without complication, without long-term current use of insulin ([facility]) INTRAORAL - COMPLETE SERIES OF RADIOGRAPHIC IMAGES [...] Relevant to Health Maintenance Results * XR Ankle 3+ Views Left (03/16/2025 2:29 PM EDT) Anatomical Region Laterality Modality Lower Extremities, Ankle Left Radiogr aphic Imaging 03/16/2025 2:29 PM EDT Narrative 03/16/2025 3:43 PM EDT ?[facility] ?[address] ?[place] [address] ?XRay Report ? Signed ? Patient: Gutierrez,Kerline ?MR#: [id number] ? : 1965 ?Acct:[id number] ? Age/Sex: 59 / F ?ADM Date: 05/01/25 ? Loc: HO.HHCX ? Attending Dr: Rosalba Kingsley MD ? Ordering Physician: Rosalba Shin MD ?? Date of Service: 03/16/25 ?? Procedure(s): XR ankle LT min 3V ?? Accession Number(s): [id number] ? cc: Rosalba Shin MD ? EXAMINATION: [...] DD/ 1429 ? TD/TT: 03/16/25 1500 ? Neon Technician: ? Procedure Note Flavia, Image - 03/16/2025 [place] [address] XRay Report Signed Patient: Diana Gutierrez#: [id number] : 1965Acct:[id number] Age/Sex: 59 / FADM Date: 03/16/25 Loc: HO.HHCX Attending Dr: Rosalba Kingsley MD Ordering Physician: Rosalba Shin MD Date of Service: 03/16/25 Procedure(s): XR ankle LT min 3V Accession Number(s): [id number] cc: Rosalba Shin MD EXAMINATION: XR ANKLE [...] 03/16/25 1541 DD/ 1429 TD/TT: 03/16/25 1500 Neon Technician: Rosalba Kingsley MD IMG XR PROCEDURES Fin al Result * POCT HGB A1C (03/16/2025 1:53 PM EDT) [facility] Hemoglobin A1C 5.0 4.0 - 6.0 % QC Media Lot # [id number] Lot# Expiration Date 727 Blood 03/16/2025 1:53 PM EDT Rosalba Kingsley MD POINT OF CARE TEST EN TER/EDIT ORDERABLES Final Result * POCT Glucose (03/16/2025 1:49 PM EDT) [facility] Glucose Blood, POC 154 60 - 200 mg/dL QC Media Lot # [id number] Lot# Expiration Date 101,425 Blood Capillary blood specimen / Unknown 03/16/2025 1:[address] [facility] Rosalba Kingsley MD POINT OF CARE TEST EN TER/EDIT ORDERABLES Final Result * (ABNORMAL) Respiratory Allergy Profile Region I (01/18/2025 2:00 PM EST) [facility] Immunoglobulin E 70 <ZK=794 kU/L [facility] Mouse Urine Proteins (E72) IgE <0.10 kU/L [facility] Class 0 [facility] Cockroach (I6) IgE <0.10 kU/L [facility] Class 0 [facility] Dermatophagoides farinae (D2) IgE <0.10 kU/L [facility] Class 0 [facility] Cat Dander (E1) IgE <0.10 kU/L [facility] Class 0 [facility] Comment:THIS TEST WAS PERFOR MED AT:[facility] [address] [phone] GARCIA MD Dog Dander (E5) IgE <0.10 kU/L [facility] Class 0 [facility] Comment:THIS TEST WAS PERFOR MED AT:[facility] [address] [phone] GARCIA MD Ramon Grass (G6) IgE <0.10 kU/L [facility] Class 0 [facility] Cladosporium herbarum (M2) IgE <0.10 kU/L [facility] Class 0 [facility] Aspergillus Fumigatis (M3) IgE <0.10 kU/L [facility] Class 0 [facility] Alternaria alternata (M6) IgE <0.10 kU/L [facility] Class 0 [facility] Comment:THIS TEST WAS PERFOR MED AT:[facility] [address] [phone] GARCIA MD [place] (t6) IgE <0.10 kU/L [facility] Class 0 [facility] Mcdonald (T7) IgE 0.23(A) kU/L [facility] Class 0/1 [facility] [place] (T10) IgE <0.10 kU/L [facility] Class 0 [facility] Bill[place] (T11) IgE <0.10 kU/L [facility] Class 0 [facility] [place] (T14) IgE 0.55(A) kU/L [facility] Class 1 [facility] [place] (t15) IgE <0.10 kU/L [facility] Class 0 [facility] [place] (T70) IgE <0.10 kU/L [facility] Class 0 [facility] Common Ragweed (Short) (W1) IgE <0.10 kU/L [facility] Class 0 [facility] Mugwort (w6) IgE <0.10 kU/L [facility] Class 0 [facility] Dermatophagoides pteronyssinus (D1) IgE <0.10 kU/L [facility] Class 0 [facility] Bermuda Grass (g2) IgE <0.10 kU/L [facility] Class 0 [facility] Penicillium Notatum (M1) IgE <0.10 kU/L [facility] Class 0 [facility] Birch (T3) IgE 0.40(A) kU/L [facility] Class 1 [facility] Elm (t8) IgE <0.10 kU/L [facility] Class 0 [facility] Maple ([place]) (T1) IgE 0.14(A) kU/L [facility] Class 0/1 [facility] Rough Pigweed (W14) IgE <0.10 kU/L [facility] Class 0 [facility] Sheep [place] (W18) IgE <0.10 kU/L [facility] Class 0 [facility] Allergen Comment See Below [facility] Comment: Specific ?Level of AllergenIGE Class ?kU/L ? Specific IGE Antibody ----- ? --------- ?0 ?<0.10 ? Absent/Undetectable ??0/1 ?0.10-0.34 ? Very Low Level ??1 ?0.35-0.69 ? Low Level ??2 ?0.70-3.49 ? Moderate Level ??3 ?3.50-17.4 ? High Level ??4 ?17.5-49.9 ? Very High Level ??5 ?50-100 ?Very High Level ??6 ?>100 ?Very High LevelThe clinical relevance of allergen results of0.10-0.34 kU/L are undetermined and intended forspecialist use.Allergens denoted with a include results usingone or more analyte specific reagents. In thosecases, the test was developed and its analyticalperformance characteristics have been determined by[employer]. It has not been cleared or approvedby the U.S. Food and Drug Administration. This assayhas been validated pursuant to the CLIA regulationsand is used for clinical purposes.THIS TEST WAS PERFORMED AT:[facility] [address] ??[phone] GARCIA MD 01/18/2025 2:00 PM EST 01/18/2025 2:00 PM EST us Generic External Data Provider LAB BLOOD ORDERAB LES Final Result [facility] [address] [place] [address] [phone] * (ABNORMAL) Basic Metabolic Panel (01/18/2025 2:00 PM EST) Sodium 142 135 - 145 mmol/L [facility] Potassium 4.3 3.3 - 5.1 mmol/L [facility] Chloride 107 96 - 108 mmol/L [facility] Carbon Dioxide 29 22 - 29 mmol/L [facility] Anion Gap 10(L) 12 - 20 [facility] Urea Nitrogen (BUN) 11 9 - 16 mg/dL [facility] Creatinine, Serum 0.57 0.5 - 1.4 mg/dL [facility] Estimated Glomerular Filt Rate >60 [facility] Comment:Chronic Kidney Disea se: Estimated GFR < 60 mL/min/[id number] Kidney Disease: Estimated GFR < 15 mL/min/1.73m2 Glucose 131(H) 60 - 115 mg/dL [facility] Calcium 9.8 8.4 - 10.2 mg/dL [facility] Blood Venous blood specimen / Unknown 01/18/2025 2:00 PM EST 01/18/2025 2:00 PM EST us Rosalba Kingsley MD LAB BLOOD ORDERABLES Final Result Performing Organization Address City/State/[facility] Co de Phone Number [facility] [address] [place] [phone] * POCT JUVE-14 Urine Drug Screen (01/03/2025 11:37 AM EST) TCA, Urine Positive Urine Urine specimen obtained by clean catch procedure / Unknown 01/03/2025 11:37 AM EST Jeannette Flores RN - 01/03/2025 11:37 AM EST UTO[employer] cup Lot#[id number] Exp. 07/05/26 Internal Pass Control us Rosalba Kingsley MD POINT OF CARE TEST EN TER/EDIT ORDERABLES Final Result * (ABNORMAL) Lipid Panel with Reflex to Direct LDL (07/13/2024 3:15 PM EDT) Triglycerides 135 <150 mg/dL [facility] Comment:Desirable Triglyceri de: less than 150 mg/dLBorderline High Triglyceride 150-199 mg/dLHigh Triglyceride: 200-499 mg/dLVery High Triglyceride: greater than or equal to 5OO mg/dL Cholesterol 220(H) <200 mg/dL [facility] Comment:Desirable Cholestero l: less than 200 mg/dLBorderline High Cholesterol: 200-239 mg/dLHigh Cholesterol: greater than 239 mg/dL LDL Cholesterol Calculated 134(H) <100 mg/dL [facility] Comment:Desirable LDL: less than 100 mg/dLNear Optimal/Above Optimal LDL: 110- 129 mg/dLBorderline High LDL: 130-159 mg/dLHigh LDL: 160-189 mg/dLVery High LDL: greater than or equal to 190 mg/dL HDL Cholesterol 59 >40 mg/dL [facility] Comment:Desirable HDL: great er than 40 mg/dL Note: This HDL assay may give artificially low results in patients with liver disease. Blood 07/13/2024 3:15 PM EDT 07/13/2024 4:04 PM EDT us Rosalba Kingsley MD LAB BLOOD ORDERABLES Final Result Performing Organization Address [facility] Co de Phone Number [facility] [address] [place] [address] [phone] * Albumin, Random Urine W/Creatinine (07/13/2024 12:00 AM EDT) Creatinine, Urine 115.51 mg/dL [facility] Microalbumin Urine 28.0 mg/L [facility] Microalbum Creatinine Ratio Ur 24.2 <30 ug/mg cr [facility] Comment:Albumin/Creatinine R atio Reference Ranges: Normal: < 30 ug/mg creatinine Microalbuminuria: 30 - 300 ug/mg creatinineClinical Albuminuria: > 300 ug/mg creatinine Urine (Urine, Random) 07/13/2024 07/13/2024 us Rosalba Kingsley MD LAB URINE ORDERABLES Final Result Performing Organization Address [facility]/ZIP Co de Phone Number [facility] [address] [place] [phone] * BI Mammogram Diagnostic Tomosynthesis Bilateral (02/12/2024 10:01 AM EDT) Anatomical Region Laterality Modality Breast Bilateral Mammography 02/12/2024 10:0 1 AM EDT Narrative 02/12/2024 12:05 PM EDT ? [facility] ? 2 [facility] [address] ?[place] [address] ? Mammography Report ? Signed ? Patient: Gutierrez,Kerline ?MR#: [id number] ? : 1965 ?Acct:[id number] ? Age/Sex: 58 / F ?ADM Date: 02/12/24 ? Loc: HO.MAMMO ? Attending Dr: Rosalba Kingsley MD ? Ordering Physician: Rosalba Shin MD ?Results: ?? 2Benign Findings ? Date of Service: 02/12/24 ?Follow Up: 1 Year From Orig ?? inal Mammogram ? Procedure(s): MM tomosynthesis diagnostic BI ?? Accession Number(s): [id number] ? cc: Rosalba Shin MD ? EXAMINATION: [...] 1201 ? DD/ 1001 ? TD/TT: ? Neon Technician: ? Procedure Note Flavia, Image - 02/12/2024 [facility] [address] [place] [address] Mammography Report Signed Patient: Diana Gutierrez#: [id number] : 1965Acct:[id number] Age/Sex: 58 / FADM Date: 02/12/24 Loc: HO.MAMMO Attending Dr: Rosalba Kingsley MD Ordering Physician: Rosalba Shin MDResults: 2Benign Findings Date of Service: 02/12/24Follow Up: 1 Year From Orig inal Mammogram Procedure(s): MM tomosynthesis diagnostic BI Accession Number(s): [id number] cc: Rosalba Shin MD EXAMINATION: MM DIAGNOSTIC [...] in OV> 02/12/24 1201 DD/ 1001 TD/TT: Neon Technician: Rosalba Kingsley MD IMG BI PROCEDURES Arash jamaal Result - Final * Image-Guided Pap with Age-Based Screening??with CT/NG,??Trichomonas (09/22/2023 10:18 AM EST) Trichomonas (NAAT) NOT DETECTED NOT DETECTED [facility] Comment:The analytical perfo rmance characteristics of thisassay have been determined by [employer]. Themodifications have not been cleared or approved bythe FDA. This assay has been validated pursuant to theIA regulations and is used for clinical purposes.For additional information, please refer tohttp://education.[employer]/faq/Trichomonastma(This link is being provided for information/educational purposes only.)THIS TEST WAS PERFORMED AT:[employer] [place] [phone] GARCIA MD CTNG Ref Lab NOT DETECTED NOT DETECTED [facility] NG Ref Lab NOT DETECTED NOT DETECTED [facility] 09/22/2023 10:1 8 AM EST 09/23/2023 7:30 AM EST us Rosalba Kingsley MD LAB CYTOLOGY ORDERABL ES Final Result [facility] [address] [place] [phone] * HPV mRNA E6/E7 w/Reflex to HPV Genotypes 16, 18/45 (09/22/2023 10:18 AM EST) HPV nRNA E6/E7 Not Detected Not Detected [facility] Comment:Methodology: Transcr iption-Mediated AmplificationThis assay detects E6/E7 viral messenger RNA (mRNA) from 14high-risk HPV types (16,18,31,33,35,39,45,51,52,56,58,59,66,68).Cervical sources are required for HPV testing.If a vaginal source from a patient who has had atotal hysterectomy with removal of cervix wassubmitted, please contact the testing laboratoryfor alternative testing options.For additional information, please refer tohttp://education.[employer]/faq/ORZ979m1(This link if provided for information/educational purposes only.)THIS TEST WAS PERFORMED AT:[facility] [place] [phone] GARCIA MD HPV mRNA E6/E7 [facility] HPV 16 RNA [facility] HPV 18/45 RNA [facility] 09/22/2023 10:1 8 AM EST 09/23/2023 7:30 AM EST Rosalba Kingsley MD LAB CYTOLOGY ORDERABL ES Final Result [facility] [address] [place] [phone] * Colonoscopy (06/01/2018) Colonoscopy Normal Normal Narrative Aditi Durand - 06/01/2018 Recommended 10 year follow up Historical Provider HEALTH MAINTENANCE Final Result from Last 3 Months or Most Recently Relevant to Health Maintenance [facility] AD[place] Care Teams Legal Job Titles Relationship Specialty Start Date End Date Rosalba Shin MD [address] [place] [address] PCP - General Family Medicine 12/26/20
== END 2025-03-16 14:29 | disposition home or self-care (01) ==
LOC: HO.HHCX 14:28
PROVIDERS: Visit Provider Internal Medicine
DX: M25.572 Pain in left ankle and joints of left foot (principal); G89.29 Other chronic pain
CPT/HCPCS: 73610

== ENCOUNTER → 2025-03-16 14:29 | Outpatient (BNV) | payer MEDICAID, SELFPAY | PROVIDERS: Visit Provider Radiology Diagnostic Radiology | DX: M77.32 Calcaneal spur, left foot (principal) | CPT/HCPCS: 73610 ==

== ENCOUNTER 2025-03-26 20:44 | Emergency (ER) | payer MEDICAID, SELFPAY ==
--- NOTE | 2025-03-26 20:46 | ED.GENADULT ---
HPI - General Adult General Chief complaint: Extremity Injury, Upper Stated complaint: right hand injury Related Data Home Medications ?Medication ?Instructions ?Recorded ?Confirmed albuterol sulfate 90 mcg/actuation 2 puff inhalation Q6H PRN wheezing 07/13/23 12/15/24 aerosol inhaler (Ventolin HFA) aspirin 81 mg tablet,delayed 81 mg PO DAILY 07/13/23 12/15/24 release cholecalciferol (vitamin D3) 50 50 mcg PO QAM 07/13/23 12/15/24 mcg (2,000 unit) capsule (Vitamin D3) cyclobenzaprine 5 mg tablet 5 mg PO Q8H PRN muscle spasm 07/13/23 12/15/24 diclofenac sodium 1 % topical gel 2 g topical QID 07/13/23 12/15/24 ferrous sulfate 325 mg (65 mg 325 mg PO BID 07/13/23 12/15/24 iron) tablet (FeroSul) hydrochlorothiazide 25 mg tablet 25 mg PO DAILY 07/13/23 12/15/24 lidocaine 5 % topical patch 0 patch topical 07/13/23 12/15/24 lisinopril 5 mg tablet 5 mg PO QAM 07/13/23 12/15/24 loratadine 10 mg tablet 10 mg PO DAILY PRN 07/13/23 12/15/24 paroxetine HCl 20 mg tablet 20 mg PO DAILY 07/13/23 12/15/24 prednisolone acetate 1 % eye 1 drp ophthalmic-Right QID 07/13/23 12/15/24 drops,suspension rosuvastatin 10 mg tablet 10 mg PO BEDTIME 07/13/23 12/15/24 sennosides 8.6 mg tablet (senna) 8.6 mg PO PRN 07/13/23 12/15/24 sodium chloride 0.65 % nasal spray 2 spray intranasal congestion 07/13/23 12/15/24 aerosol (Deep Sea Nasal) triamcinolone acetonide 0.1 % topical BID 07/13/23 12/15/24 topical ointment zolpidem 10 mg tablet 10 mg PO BEDTIME PRN insomnia 07/13/23 12/15/24 levothyroxine 200 mcg tablet 200 mcg PO DAILY 07/22/23 12/15/24 acetaminophen 500 mg tablet 500 mg PO Q6H PRN 08/21/23 12/15/24 dextran 70-hypromellose 0.1 %-0.3 1 drp ophthalmic (eye) TID PRN 08/21/23 12/15/24 % eye drops (Lubricating Tears) levothyroxine 25 mcg tablet 25 mcg PO QAM 08/21/23 12/15/24 triamcinolone acetonide 0.1 % appl topical pain 08/21/23 12/15/24 topical cream venlafaxine 37.5 mg 37.5 mg PO QAM 08/21/23 12/15/24 capsule,extended release 24 hr Previous Rx's ?Medication ?Instructions ?Recorded tramadol 50 mg tablet 50 mg PO Q6H PRN pain #20 tabs 10/11/21 benzonatate 200 mg capsule 200 mg PO BID PRN cough #14 caps 06/26/24 doxycycline hyclate 100 mg capsule 100 mg PO BID 7 days #14 caps 06/26/24 fluticasone furoate 200 1 inh inhalation DAILY #1 ea 12/15/24 mcg-vilanterol 25 mcg/dose inhalation powder (Breo Ellipta) ketorolac 10 mg tablet 10 mg PO QID PRN pain #20 tabs 03/27/25 methocarbamol 750 mg tablet 1,500 mg (2 x 750 mg) PO Q8H PRN 03/27/25 pain, moderate #25 tabs methylprednisolone 4 mg tablets in 4 mg PO QAM #21 ea 03/27/25 a dose pack (Medrol (Jurgen)) Allergies Allergy/AdvReac Type Severity Reaction Status Date / Time No Known Allergies Allergy Verified 03/26/25 23:45 [No Known Allergies*] [facility] Past Medical History Medical History (Updated 03/29/25 @ 10:29 by ABDOUL Montes) Breast pain Fibromyalgia Anxiety and depression Bilateral carpal tunnel syndrome Type 2 diabetes mellitus Essential hypertension Sjogren's syndrome Rheumatoid arthritis involving multiple sites with positive rheumatoid factor Acquired hypothyroidism Cervical radiculopathy Lumbar radiculopathy Asthma Surgical History H/O gastric bypass Hx of cataract extraction No history of previous surgery Family History Family History Mother Arthritis Father No problems noted. Other Medical history unknown Social History Social History Household Members: None Alcohol intake: never Patient Tobacco Use Status: Never used Tobacco Smoked in Last 30 Days: No Use of substances other than those prescribed or required for medical reasons: No Advance Directives: No Advance Directives Information Provided: Yes Do you have a plan to hurt others: No Plan Current occupational status: disabled Physical Exam ED Vital Signs: BMI result Body Mass Index 34.6 Course Course Course Narrative: RME performed by Dayana Kennedy PA-C. Patient is a 59 year old assigned female at presenting to the emergency department with right wrist and right shoulder pain. Patient's limited physical exam performed in triage showed an individual in no acute distress. Detailed physical exam and review of systems are deferred to the emergency department clinician. Patient placed back in the waiting room pending room availability . Patient left the department without completing treatment. Patient left the department before myself or any of the other emergency department clinicians could explain to or review with the patient; physical exam findings, test results, need or lack there of for additional testing, need or lack there of for a procedure to be performed, need or lack there of for hospital admission / transfer, need or lack there of for prescription medication, treatment options, or a treatment plan. Discharge Plan Discharge Clinical Impression: Chronic pain of right wrist Patient Disposition: Left W/O Completing Treatment Prescriptions: No Action tramadol 50 mg tablet 50 mg PO Q6H PRN (Reason: pain) Qty: 20 0RF benzonatate 200 mg capsule 200 mg PO BID PRN (Reason: cough) Qty: 14 0RF doxycycline hyclate 100 mg capsule 100 mg PO BID 7 Days Qty: 14 0RF methylprednisolone [Medrol (Jurgen)] 4 mg tablets,dose pack 4 mg PO QAM Qty: 21 0RF Rx Instructions: Take per package instructions ketorolac 10 mg tablet 10 mg PO QID PRN (Reason: pain) Qty: 20 0RF Rx Instructions: maximum total duration of 5 days from all oral, intranasal, or parenteral formulations. the patient received an intramuscular dose of Toradol here in the emergency room. methocarbamol 750 mg tablet 1,500 mg PO Q8H PRN (Reason: pain, moderate) Qty: 25 0RF cyclobenzaprine 5 mg tablet 5 mg PO Q8H PRN (Reason: muscle spasm) albuterol sulfate [Ventolin HFA] 90 mcg/actuation HFA aerosol inhaler 2 puff inhalation Q6H PRN (Reason: wheezing) cholecalciferol (vitamin D3) [Vitamin D3] 50 mcg (2,000 unit) capsule 50 mcg PO QAM diclofenac sodium 1 % gel 2 g topical QID rosuvastatin 10 mg tablet 10 mg PO BEDTIME Deep Sea Nasal 0.65 % aerosol,spray 2 spray intranasal loratadine 10 mg tablet 10 mg PO DAILY PRN hydrochlorothiazide 25 mg tablet 25 mg PO DAILY lisinopril 5 mg tablet 5 mg PO QAM lidocaine 5 % adhesive patch,medicated 0 patch topical paroxetine HCl 20 mg tablet 20 mg PO DAILY aspirin 81 mg tablet,delayed release (DR/EC) 81 mg PO DAILY sennosides [senna] 8.6 mg tablet 8.6 mg PO PRN zolpidem 10 mg tablet 10 mg PO BEDTIME PRN (Reason: insomnia) triamcinolone acetonide 0.1 % ointment topical BID prednisolone acetate 1 % drops,suspension 1 drp ophthalmic-Right QID ferrous sulfate [FeroSul] 325 mg (65 mg iron) tablet 325 mg PO BID levothyroxine 200 mcg tablet 200 mcg PO DAILY venlafaxine 37.5 mg capsule,extended release 24hr 37.5 mg PO QAM levothyroxine 25 mcg tablet 25 mcg PO QAM Lubricating Tears 0.1-0.3 % drops 1 drp ophthalmic (eye) TID PRN triamcinolone acetonide 0.1 % cream topical acetaminophen 500 mg tablet 500 mg PO Q6H PRN fluticasone furoate-vilanterol [Breo Ellipta] 200-25 mcg/dose blister with device 1 inh inhalation DAILY Qty: 1 6RF Discharge Date/Time: 03/26/25 22:59
[2025-03-26 20:47] VITALS: BP 147/58; PULSE 71; RESP 16; TEMP 36.6; O2SAT 99; BMI 34.6
--- OUTSIDE RECORDS SUMMARY | 2025-03-26 22:58 | XMS_ITS | Encounter Summary ---
Author Organization [employer] Address [address] [facility] [address] [place] [address] Care Team Providers Care Graduate Teaching Assistant Name Role Phone Rosalba Shin MD Primary Care Provide r Encounter Details Date Type Department Care Team (Late st Contact Info) Description 08/26/2023 Abstract [facility] MEDICINE [address] [place] [phone] Rosalba Shin MD [address] [place] [address] Social History Tobacco Use Types Packs/Day Years [...] Info) Description 04/20/2025 10:45 AM EDT Telemedicine [facility] MEDICINE [address] [place] [address] Rosalba Shin MD [address] [place] [address] 05/05/2025 11:15 AM EDT Office Visit [facility] MEDICINE [address] [place] [address] Alban Diaz MD [address] [place] [address] 05/25/2025 11:15 AM EDT Office Visit [facility] OPTOMETRY [address] [place] [address] Tarhernan Aidee, OD [address] [place] [address] documented as of this encounter Procedures Procedure [...] documented as of this encounter Care Teams Graduate Teaching Assistant Relationship Specialty Start Date End Date Rosalba Shin MD [address] [place] [address] PCP - General Family Medicine 12/26/20 documented as of this encounter
--- OUTSIDE RECORDS SUMMARY | 2025-03-26 22:58 | XMS_ITS | Encounter Summary ---
Author Organization [employer] Address [address] [facility] 7[address] [place] [address] Care Team Providers Care Income Tax Adjuster Name Role Phone Rosalba Shin MD Primary Care Provide r Reason for Visit * Reason Onset Date Comments Triage 03/24/2025 Encounter Details Date Type Department Care Team ([facility] st Contact Info) Description 03/24/2025 Telephone [facility] MEDICINE [address] [place] [address] Rosalba Shin MD [address] [place], [place] [phone] Triage Social History Tobacco Use Types Packs/Day Years [...] not want or need it 02/15 Comments No Sex and Gender Information Value Date Recorded Sex Assigned at Female 09/15/2022 10:14 AM EDT Legal Sex Female 10:14 AM EDT Gender Identity Female 09/15/2022 10:14 AM EDT Sexual Orientation Straight 09/15/2022 10 :14 AM EDT documented as of this encounter Miscellaneous Notes * Telephone Encounter - Heidi Cross RN - 03/24/2025 3:11 PM EDT Patient walked into red team FD requesting an appointment with provider d/t R arm pain. Patient reports R arm pain started yesterday. Patient reports being able to lift arm however painful. Patient denies any injuries. Patient reports taking all prescribed medications and Tylenol with no relief. Patient reports pain is a 8-9/10. Patient has tried applying ice and a heating pad with no effect. RN has scheduled patient for an appointment for today 03/24/25 at 4pm. Patient to f/u PRN. documented in this encounter Plan of Treatment Upcoming Encounters Date Type Department Care Team (Late st Contact Info) Description 04/20/2025 10:45 AM EDT Telemedicine [facility] MEDICINE [address] [place] [phone] Rosalba Shin MD [address] [place] [address] 05/05/2025 11:15 AM EDT Office Visit [facility] MEDICINE [address] [place] [phone] Alban Diaz MD [address] [place] [address] 05/25/2025 11:15 AM EDT Office Visit [facility] OPTOMETRY [address] [place] [address] Aidee Miller, OD [address] [place] [address] documented as of this encounter Visit Diagnoses Not on filedocumented in this encounter Additional Health Concerns Assessment Noted Time PHQ-9 Depression Total Score: 0 08/12/20 24 11:42 AM EDT documented as of this encounter Care Teams Income Tax Adjuster Relationship Specialty Start Date End Date Rosalba Shin MD [address] [place] [address] PCP - General Family Medicine 12/26/20 documented as of this encounter
--- OUTSIDE RECORDS SUMMARY | 2025-03-26 22:58 | XMS_ITS | Clinical Summary ---
Author Organization [employer] Address [address] [facility] 7t [place] [address] Care Team Providers Care Skidway Worker Name Role Phone Rosalba Shin MD [...] buttocks. 03/16/20 20 Active Deep Sea Nasal [place] 0.65 % nasal sprayIndication s:Viral pharyngitis SPRAY [...] complication, without long-term current use of insulin ([facility]) 1 each 2 times daily. 1 kit 09/07/20 Active Lancets miscIndications :Type 2 diabetes mellitus without complication, without long-term current use of insulin ([facility]) 1 each 2 times daily. [...] complication, without long-term current use of insulin ([facility]) USE DIRECTED TO TEST BLOOD SUGAR TWICE DAILY 100 strip 11 05/30/20 Active lisinopril 10 MG tabletIndicatio ns:Hypertension , unspecified type Take 1 tablet (10 mg) by mouth in the morning. 30 tablet 07/13/20 24 2024 Active TRUEplus Lancets 33G miscIndications :Type 2 diabetes mellitus without complication, without long-term current use of insulin ([facility]) USE TO TEST BLOOD SUGAR TWICE DAILY 100 each 1 07/21/20 24 Active rosuvastatin (Crestor) 20 MG tabletIndicatio ns:Type 2 diabetes mellitus without complication, without long-term current use of insulin ([facility]) Take 1 tablet (20 mg) [...] eyes. 30 mL 1 11/08/20 24 Active TRUEplus Lancets 33G miscIndications :Type 2 diabetes mellitus without complication, without long-term current use of insulin ([facility]) 1 each 2 times daily. [...] AREA(S) FOUR TIMES DAILY DIRECTED 100 g 01/19/20 25 Active Fluocinolone Acetonide Scalp 0.01 [...] ORANGE JUICE 180 tablet 03/16/20 25 Active baclofen (Lioresal) 10 MG tablet Take 1 tablet (10 mg) by mouth if needed at bedtime for muscle spasms for up to 10 days. 10 tablet 03/24/20 25 2024 Active senna (Senokot) 8.6 MG tabletIndicatio ns:Other constipation TAKE 1 TABLET BY MOUTH ONE OR TWO TIMES DAILY NEEDED 180 tablet 1 07/07/20 24 2024 Discontinued(R eorder (will not trigger notification to Pharmacy)) Aspirin Low Dose 81 MG EC tabletIndicatio ns:Essential hypertension TAKE 1 TABLET BY MOUTH EVERY MORNING 90 tablet 1 07/07/20 24 2024 Discontinued(R eorder (will not trigger notification to Pharmacy)) Dextromethorpha n-guaiFENesin (Mucinex DM) 30-600 MG tablet sustained-relea se 12 hour TAKE 1 TABLET BY MOUTH THREE TIMES DAILY 28 tablet 07/26/20 24 2024 Discontinued(T herapy completed) acetaminophen (Tylenol) 500 MG tablet Take 1 tablet (500 mg) by mouth every 6 (six) hours if needed for mild pain for up to 20 doses. 20 tablet 12/02/19 25 2024 Discontinued(T herapy completed) levothyroxine (Synthroid, Levoxyl) 25 MCG tabletIndicatio ns:Hypothyroidi [...] AFFECTED AREA(S) TWICE DAILY DIRECTED 15 g 01/13/202024 Discontinued(R eorder (will not trigger notification to Pharmacy)) gabapentin (Neurontin) 100 MG capsuleIndicati ons:Fibromyalgi a Take 3 capsules (300 mg) by mouth every 8 (eight) hours. 270 capsule 03/16/202024 Discontinued Hospital, Clinic, or Other Facility Administered Medication Ordered Dose Route Frequency Start Date End Date Status ketorolac (Toradol) injection 30 mgIndications:Muscle spasm 30 mg IM Once 03/24/2025 Ended Active Problems Problem Noted Date Diagnosed Date [...] Encounters Date Type Department Care Team Description 03/24/2025 4:00 PM EDT Office Visit [address] [address] MariaL Navarro MD Muscle spasm (Primary Dx) 03/24/2025 Travel 03/24/[address] [address] Rosalba Shin MD Triage 03/17/[address] [address] Rosalba Shin MD Results 03/16/2025 1:45 PM EDT Office Visit [address] [address] Rosalba Shin MD Type 2 diabetes mellitus without complication, without long-term current use of insulin ([facility]); Essential hypertension; Chronic pain of left knee; Chronic pain of left ankle; Atypical chest pain; Rheumatoid arthritis involving multiple sites with positive rheumatoid factor ([facility]); Fibromyalgia; Encounter for screening mammogram for malignant neoplasm of breast; Primary insomnia; Rash; Other constipation; Hypothyroidism, unspecified type; Iron deficiency anemia, unspecified iron deficiency anemia type 03/16/2025 Refill [facility] [address] [place] [phone] Rosalba Shin MD Fibromyalgia; Primary insomnia; Rash; Essential hypertension; Other constipation; Hypothyroidism, unspecified type; Iron deficiency anemia, unspecified iron deficiency anemia type 03/16/2025 Travel 03/09/2025 Patient Outreach [facility] [address] [place] [phone] Rosalba Shin MD Pre-visit Planning (SDOH screening negative and Tobacco screening negative) 02/23/2025 Telephone [facility] [address] [place] [phone] Rosalba Shin MD telephone call 02/04/2025 Refill [facility] [address] [place] [phone] Rosalba Shin MD Pain; Chronic low back pain, unspecified back pain laterality, unspecified whether sciatica present 01/27/2025 Population Health Risk Score [facility] (C3) Department [address] [phone] Provider, Population Health Generic 01/25/2025 Refill [facility] [address] [place] [phone] Rosalba Shin MD Folliculitis 01/18/2025 Orders Only GENERIC EXTERNAL DATA DEPARTMENT Provider, Generic External Data 01/18/2025 Refill [facility] [address] [place] [phone] Rosalba Shin MD Chronic low back pain, unspecified back pain laterality, unspecified whether sciatica present 01/12/2025 Refill [facility] [address] [place] [address] Rosalba Shin MD Fibromyalgia; Primary insomnia; Hot flashes due to menopause; Rash 01/03/2025 11:30 AM EST Clinical Support [facility] [address] [place] [phone] Jeannette Thomas RN Chronic low back pain, unspecified back pain laterality, unspecified whether sciatica present (Primary Dx) 01/03/2025 Travel 12/29/2024 Refill [facility] [address] [place] [address] Rosalba Shin MD Essential hypertension from Last 3 Months Immunizations Name Administration [...] Sign Reading Time Taken Comments Blood Pressure 139/73 03/24/2025 3:22 PM EDT Pulse 70 03/24/2025 3:22 PM EDT Temperature 36.3 ??C (97.3 ??F) 03/24/2025 3:22 PM ED T Respiratory Rate 21 03/24/2025 3:22 PM EDT Oxygen Saturation 98% 03/24/2025 3:22 PM EDT Inhaled Oxygen Concentration - - Weight 94.3 kg (208 lb) 03/24/2025 3:22 PM EDT Height 165.1 cm (5' 5 ) 03/24/2025 3:22 PM EDT Body Mass Index 34.61 03/24/2025 3:22 PM EDT Plan of Treatment Upcoming Encounters Date Type Department Care Team (Late st Contact Info) Description 04/20/2025 10:45 AM EDT Telemedicine [facility] [address] [place] [address] Rosalba Shin MD [address] [place] [address] 05/05/2025 11:15 AM EDT Office Visit [facility] [address] [place] [address] Alban Diaz MD [address] [place] [address] 05/25/2025 11:15 AM EDT Office Visit [facility] [address] [place] [address] Aidee Miller, OD [address] [place] [address] Health Maintenance Due Date Last Done Comments [...] exists SDOH Screening 03/09/2026 03/09/2025 Tobacco Screening 03/24/2026 03/24/2025 Eye Exam 11/25/2026 11/25/2024, 11/16, 11/25/2024, Additional [...] complication, without long-term current use of insulin ([facility]) POCT GLUCOSE Routine 03/16/2025 1:49 PM EDT Type 2 diabetes mellitus without complication, without long-term current use of insulin ([facility]) RESPIRATORY ALLERGY PROFILE REGION I Routine 01/18/2025 [...] complication, without long-term current use of insulin ([facility]) Essential hypertension ALBUMIN, RANDOM URINE W/CREATININE Routine 07/13/2024 12:00 AM EDT Type 2 diabetes mellitus without complication, without long-term current use of insulin ([facility]) INTRAORAL - COMPLETE SERIES OF [...] PM EDT Narrative 03/16/2025 3:43 PM EDT ?[facility] ?[address] ?[place] [address] ?XRay Report ? Signed ? Patient: Gutierrez,Kerline ?MR#: [id number] ? : 1965 ?Acct:[id number] ? Age/Sex: 59 / F ?ADM Date: 03/16/25 ? Loc: HO.HHCX ? Attending Dr: Rosalba Kingsley MD ? Ordering Physician: Rosalba Shin MD ?? Date of Service: 03/16/25 ?? Procedure(s): XR ankle LT min 3V ?? Accession Number(s): [id number] ? cc: Rosalba Shin MD ? EXAMINATION: [...] ??Jai Weaver MD ??03/16/2025 03:41 PM EDT ?? RP ? Dictated By: ?Jai Weaver MD ? Signed By: ?<Electronically signed by Jai Weaver MD in OV> ?03/16/25 1541 ? DD/ 1429 ? TD/TT: 03/16/25 1500 ? Internet [employer] Manager: ? Procedure Note Pauline Alejandro - 03/16/2025 [facility] [address] [place] [address] XRay Report Signed Patient: Diana Gutierrez#: [id number] : 1965Acct:[id number] Age/Sex: 59 / FADM Date: 03/16/25 Loc: HO.HHCX Attending Dr: Rosalba Kingsley MD Ordering Physician: Rosalba Shin MD Date of Service: 03/16/25 Procedure(s): XR ankle LT min 3V Accession Number(s): [id number] cc: Rosalba Shin MD EXAMINATION: XR ANKLE [...] Jai Weaver MD 03/16/2025 03:41 PM EDT Dictated By: Jai Weaver MD Signed By: <Electronically signed by Jai Weaver MD in OV> 03/16/25 1541 DD/ 1429 TD/TT: 03/16/25 1500 Internet [employer] Manager: us Rosalba Kingsley MD IMG XR PROCEDURES Fin al Result * POCT HGB A1C (03/16/2025 1:53 PM EDT) Hemoglobin A1C 5.0 4.0 - 6.0 % QC Media Lot # [id number] Lot# Expiration Date Blood 03/16/2025 1:53 PM EDT us Rosalba Kingsley MD POINT OF CARE TEST EN TER/EDIT ORDERABLES Final Result * POCT Glucose (03/16/2025 1:49 PM EDT) Pathologist [facility] Glucose Blood, POC 154 60 - 200 mg/dL QC Media Lot # [id number] Lot# Expiration Date 101,653 Blood Capillary blood specimen / Unknown 03/16/2025 1:49 PM EDT Rosalba Kingsley MD POINT OF CARE TEST EN TER/EDIT ORDERABLES Final Result * (ABNORMAL) Respiratory Allergy Profile Region I (01/18/2025 2:00 PM EST) [facility] Immunoglobulin E 70 <BC=223 kU/L [facility] Mouse Urine Proteins (E72) IgE <0.10 kU/L [facility] Class 0 [facility] Cockroach (I6) IgE <0.10 kU/L [facility] Class 0 [facility] Dermatophagoides farinae (D2) IgE <0.10 kU/L [facility] Class 0 [facility] Cat Dander (E1) IgE <0.10 kU/L [facility] Class 0 [facility] Comment:THIS TEST WAS PERFOR MED AT:[email or web address] [address] [phone] GARCIA MD Dog Dander (E5) IgE <0.10 kU/L [facility] Class 0 [facility] Comment:THIS TEST WAS PERFOR MED AT:[email or web address] [address] [phone] GARCIA MD Ramon Grass (G6) IgE <0.10 kU/L [facility] Class 0 [facility] Cladosporium herbarum (M2) IgE <0.10 kU/L [facility] Class 0 [facility] Aspergillus Fumigatis (M3) IgE <0.10 kU/L [facility] Class 0 [facility] Alternaria alternata (M6) IgE <0.10 kU/L [facility] Class 0 [facility] Comment:THIS TEST WAS PERFOR MED AT:[email or web address] [place] [phone] Myra DIAZ Mus[place] (t6) IgE <0.10 kU/L [facility] Class 0 [facility] Marble (T7) IgE 0.23(A) kU/L [facility] Class 0/1 [facility] Cent[place] Tree (T10) IgE <0.10 kU/L [facility] Class 0 [facility] Columbia (T11) IgE <0.10 kU/L [facility] Class 0 [facility] Hubbard (T14) IgE 0.55(A) kU/L [facility] Class 1 [facility] White [place] (t15) IgE <0.10 kU/L [facility] Class 0 [facility] White [place] (T70) IgE <0.10 kU/L [facility] Class 0 [facility] Common Ragweed (Short) (W1) IgE <0.10 kU/L [facility] Class 0 [facility] Mugwort (w6) IgE <0.10 kU/L [facility] Class 0 [facility] Dermatophagoides pteronyssinus (D1) IgE <0.10 kU/L [facility] Class 0 [facility] Bermuda Grass (g2) IgE <0.10 kU/L [facility] Class 0 [facility] Penicillium Notatum (M1) IgE <0.10 kU/L [facility] Class 0 [facility] Birch (T3) IgE 0.40(A) kU/L [facility] Class 1 [facility] Elm (t8) IgE <0.10 kU/L [facility] Class 0 [facility] Maple (Cooke) (T1) IgE 0.14(A) kU/L [facility] Class 0/1 [facility] Rough Pigweed (W14) IgE <0.10 kU/L [facility] Class 0 [facility] Sheep [place] (W18) IgE <0.10 kU/L [facility] Class 0 [facility] Allergen Comment See Below [facility] Comment: Specific ?Level of AllergenIGE [...] and its analyticalperformance characteristics have been determined by[employer]. It has not been cleared or approvedby the U.S. Food and Drug Administration. This assayhas been validated pursuant to the CLIA regulationsand is used for clinical purposes.THIS TEST WAS PERFORMED AT:[employer] [place] [address] [phone] GARCIA MD 01/18/2025 2:00 PM EST 01/18/2025 2:00 PM EST us Generic External Data Provider LAB BLOOD ORDERAB LES Final Result Performing Organization Address [facility]/ZIP Co de Phone Number [facility] [address] [place] [phone] * (ABNORMAL) Basic Metabolic Panel (01/18/2025 2:00 PM EST) Sodium 142 135 - 145 mmol/L [facility] Potassium 4.3 3.3 - 5.1 mmol/L [facility] Chloride 107 96 - 108 mmol/L [facility] Carbon Dioxide 29 22 - 29 mmol/L [facility] Anion Gap 10(L) 12 - 20 [facility] Urea Nitrogen (BUN) 11 9 - 16 mg/dL [facility] Creatinine, Serum 0.57 0.5 - 1.4 mg/dL [facility] Estimated Glomerular Filt Rate >60 [facility] Comment:Chronic Kidney Disea se: Estimated GFR < 60 mL/min/1.60h7Sjxvvl Kidney Disease: Estimated GFR < 15 mL/min/1.73m2 Glucose 131(H) 60 - 115 mg/dL [facility] Calcium 9.8 8.4 - 10.2 mg/dL [facility] Blood Venous blood specimen / Unknown 01/18/2025 2:00 PM EST 01/18/2025 2:00 PM EST us Rosalba Kingsley MD LAB BLOOD ORDERABLES Final Result Performing Organization Address [facility]/ZIP Co de Phone Number [facility] [address] [place] [phone] * POCT JUVE-14 Urine Drug Screen (01/03/2025 11:37 AM EST) TCA, Urine Positive Urine Urine specimen obtained by clean catch procedure / Unknown 01/03/2025 11:37 AM EST Jeannette Flores RN - 01/03/2025 11:37 AM EST [employer] cup Lot#[id number] Exp. 07/05/26 Internal Pass Control Rosalba Kingsley MD POINT OF CARE TEST EN TER/EDIT ORDERABLES Final Result * (ABNORMAL) Lipid Panel with Reflex to Direct LDL (07/13/2024 3:15 PM EDT) Triglycerides 135 <150 mg/dL [facility] Comment:Desirable Triglyceri de: less than 150 mg/dLBorderline High Triglyceride 150-199 mg/dLHigh Triglyceride: 200-499 mg/dLVery High Triglyceride: greater than or equal to 5OO mg/dL Cholesterol 220(H) <200 mg/dL [facility] Comment:Desirable Cholestero l: less than 200 mg/dLBorderline High Cholesterol: 200-239 mg/dLHigh Cholesterol: greater than 239 mg/dL LDL Cholesterol Calculated 134(H) <100 mg/dL [facility] Comment:Desirable LDL: less than 100 mg/dLNear Optimal/Above Optimal LDL: 110- 129 mg/dLBorderline High LDL: 130-159 mg/dLHigh LDL: 160-189 mg/dLVery High LDL: greater than or equal to 190 mg/dL HDL Cholesterol 59 >40 mg/dL [facility] Comment:Desirable HDL: great er than 40 mg/dL Note: This HDL assay may give artificially low results in patients with liver disease. Blood 07/13/2024 3:15 PM EDT 07/13/2024 4:04 PM EDT us Rosalba Kingsley MD LAB BLOOD ORDERABLES Final Result [facility] [address] [place] [phone] * Albumin, Random Urine W/Creatinine (07/13/2024 12:00 AM EDT) Creatinine, Urine 115.51 mg/dL [facility] Microalbumin Urine 28.0 mg/L [facility] Microalbum Creatinine Ratio Ur 24.2 <30 ug/mg cr [facility] Comment:Albumin/Creatinine R atio Reference Ranges: Normal: < 30 ug/mg creatinine Microalbuminuria: 30 - 300 ug/mg creatinineClinical Albuminuria: > 300 ug/mg creatinine Urine (Urine, Random) 07/13/2024 07/13/2024 Rosalba Kingsley MD LAB URINE ORDERABLES Final Result [facility] [address] [place] [phone] * BI Mammogram Diagnostic Tomosynthesis Bilateral (02/12/2024 10:01 AM EDT) Anatomical Region Laterality Modality Breast Bilateral Mammography 02/12/2024 10:0 1 AM EDT Narrative 02/12/2024 12:05 PM EDT ? [facility] [place] ? [address] ?[place] [address] ? Mammography Report ? Signed ? Patient: Gutierrez,Kerline ?MR#: [id number] ? : 1965 ?Acct:[id number] ? Age/Sex: 58 / F ?ADM Date: 03/29/24 ? Loc: HO.MAMMO ? Attending Dr: Rosalba Kingsley MD ? Ordering Physician: Rosalba Shin MD ?Results: ?? 2Benign Findings ? Date of Service: 02/12/24 ?Follow Up: 1 Year From Orig ?? inal Mammogram ? Procedure(s): MM tomosynthesis diagnostic BI ?? Accession Number(s): [id number] ? cc: Rosalba Shin MD ? EXAMINATION: [...] Burton MD in OV> ?02/11/ 1201 ? DD/ 1001 ? TD/TT: ? Internet Cafe Manager: ? Procedure Note Flavia, Image - 02/12/2024 Nadia [facility] [address] [place] [address] Mammography Report Signed Patient: GutierrezDiana#: [id number] : 1965Acct:[id number] Age/Sex: 58 / FADM Date: 02/12/24 Loc: HO.MAMMO Attending Dr: Rosalba Kingsley MD Ordering Physician: Rosalba Shin MDResults: 2Benign Findings Date of Service: 02/12/24Follow Up: 1 Year From Orig inal Mammogram Procedure(s): MM tomosynthesis diagnostic BI Accession Number(s): [id number] cc: Rosalba Shin MD EXAMINATION: MM DIAGNOSTIC [...] in OV> 02/12/24 1201 DD/ 1001 TD/TT: Internet Cafe Manager: us Rosalba Kingsley MD IMG BI PROCEDURES Arash jamaal Result - Final * Image-Guided Pap with Age-Based Screening??with CT/NG,??Trichomonas (09/22/2023 10:18 AM EST) Trichomonas (NAAT) NOT DETECTED NOT DETECTED [facility] Comment:The analytical perfo rmance characteristics of thisassay have been determined by [employer]. Themodifications have not been cleared or approved bythe FDA. This assay has been validated pursuant to theCLIA regulations and is used for clinical purposes.For additional information, please refer tohttp://education.Phorest/faq/Trichomonastma(This link is being provided for information/educational purposes only.)THIS TEST WAS PERFORMED AT:[email or web address] [address] [phone] GARCIA MD CTNG Ref Lab NOT DETECTED NOT DETECTED [facility] NG Ref Lab NOT DETECTED NOT DETECTED [facility] 09/22/2023 10:1 8 AM EST 09/23/2023 7:30 AM EST us Rosalba Kingsley MD LAB CYTOLOGY ORDERABL ES Final Result Performing Organization Address [facility] Co de Phone Number [facility] [address] [place] [phone] * HPV mRNA E6/E7 w/Reflex to HPV Genotypes 16, 18/45 (09/22/2023 10:18 AM EST) HPV nRNA E6/E7 Not Detected Not Detected [facility] Comment:Methodology: Transcr iption-Mediated AmplificationThis assay detects E6/E7 viral messenger RNA (mRNA) from 14high-risk HPV types (16,18,31,33,35,39,45,51,52,56,58,59,66,68).Cervical sources are required for HPV testing.If a vaginal source from a patient who has had atotal hysterectomy with removal of cervix wassubmitted, please contact the testing laboratoryfor alternative testing options.For additional information, please refer tohttp://education.Phorest/faq/NZP499c0(This link if provided for information/educational purposes only.)THIS TEST WAS PERFORMED AT:[employer] [place] [phone] GARCIA MD HPV mRNA E6/[facility]7 [facility] HPV 16 RNA [facility] HPV 18/45 RNA [facility] 09/22/2023 10:1 8 AM EST 09/23/2023 7:30 AM EST us Rosalba Kingsley MD LAB CYTOLOGY ORDERABL ES Final Result Performing Organization Address [facility] Co de Phone Number [facility] [address] [place] [phone] * Hm Colonoscopy (06/01/2018) Colonoscopy Normal Normal Narrative Aditi Durand - 06/01/2018 Recommended 10 year follow up us Historical Provider HEALTH MAINTENANCE Final Result from Last 3 Months or Most Recently Relevant to Health Maintenance [place] [facility] ST[facility] ADULT Care Teams Skidway Worker Relationship Specialty Start Date End Date Rosalba Shin MD [address] [place] [phone] PCP - General Family Medicine 12/26/20
--- OUTSIDE RECORDS SUMMARY | 2025-03-26 22:58 | XMS_ITS | Encounter Summary ---
Author Organization [employer] Address [address] [facility] 7t [place] [address] Care Team Providers Care Acid Changer Name Role Phone Rosalba Shin MD Primary Care Provide r Reason for Visit * Reason Comments Med Refill Encounter Details Date Type Department Care Team ([facility] st Contact Info) Description 06/08/2024 Refill [facility] [address] [place], [place] [phone] Rosalba Shin MD [address] [place] [address] Fibromyalgia Social History Tobacco Use Types Packs/Day [...] Info) Description 04/20/2025 10:45 AM EDT Telemedicine [facility] [address] [place] [phone] Rosalba Shin MD [address] [place] [address] 05/05/2025 11:15 AM EDT Office Visit [facility] [address] [place] [phone] Alban Diaz MD [address] [place] [address] 05/25/2025 11:15 AM EDT Office Visit [facility] [address] [place] [address] TarAidee becerra, OD [address] [place] [address] documented as of this encounter Visit Diagnoses Diagnosis Fibromyalgia Unspecified myalgia and myositis documented in this encounter Additional Health Concerns Assessment Noted Time PHQ-9 Depression Total Score: 7 04/06/20 23 2:10 PM EDT documented as of this encounter Care Teams Acid Changer Relationship Specialty Start Date End Date Rosalba Shin MD [address] [place] [phone] PCP - General Family Medicine 12/26/20 documented as of this encounter
--- OUTSIDE RECORDS SUMMARY | 2025-03-26 22:58 | XMS_ITS | Encounter Summary ---
Author Organization [employer] Address [address] [facility] 7t [place] [address] Care Team Providers Care Cider Press Operator Name Role Phone Rosalba Shin MD Primary Care Provide r Reason for Visit * Reason Comments Med Refill Encounter Details Date Type Department Care Team ([facility] st Contact Info) Description 12/02/2024 Refill [facility] MEDICINE [address] [place], [place] [phone] Ofelia Wright, ANP [address] [place] [address] Type 2 diabetes mellitus without complication, without long-term current use of insulin ([facility]) Social History Tobacco Use Types [...] Info) Description 04/20/2025 10:45 AM EDT Telemedicine [facility] MEDICINE [address] [place] [phone] Rosalba Shin MD [address] [place] [address] 05/05/2025 11:15 AM EDT Office Visit [facility] MEDICINE [address] [place] [address] Alban Diaz MD [address] [place] [address] 05/25/2025 11:15 AM EDT Office Visit [facility] OPTOMETRY [address] [place] [address] Aidee Miller, OD [address] [place] [address] documented as of this encounter Visit Diagnoses Diagnosis Type 2 diabetes mellitus without complication, without long-term current use of insulin ([facility]) documented in this encounter Additional Health Concerns Assessment Noted Time PHQ-9 Depression Total Score: 0 08/12/20 24 11:42 AM EDT documented as of this encounter Care Teams Cider Press Operator Relationship Specialty Start Date End Date Rosalba Shin MD [address] [place] [address] PCP - General Family Medicine 12/26/20 documented as of this encounter
--- OUTSIDE RECORDS SUMMARY | 2025-03-26 22:58 | XMS_ITS | Encounter Summary ---
Author Organization [employer] Address [address] [facility] 7t [place] [address] Care Team Providers Care Ui Programmer Name Role Phone Rosalba Shin MD Primary Care Provide r Reason for Visit * Reason Comments Med Refill Encounter Details Date Type Department Care Team ([facility] st Contact Info) Description 03/16/2025 Refill [facility] MEDICINE [address] [place] [address] Rosalba Shin MD [address] [place] [address] Fibromyalgia; Primary insomnia; Rash; Essential hypertension; Other [...] Info) Description 04/20/2025 10:45 AM EDT Telemedicine [facility] MEDICINE [address] [place] [address] Rosalba Shin MD [address] [place] [address] 05/05/2025 11:15 AM EDT Office Visit [facility] MEDICINE [address] [place] [address] Alban Diaz MD [address] [place] [address] 05/25/2025 11:15 AM EDT Office Visit [facility] OPTOMETRY [address] [place] [address] Aidee Miller, RUDDY [address] [place] [address] documented as of this encounter Visit Diagnoses [...] documented as of this encounter Care Teams Ui Programmer Relationship Specialty Start Date End Date Rosalba Shin MD [address] [place] [address] PCP - General Family Medicine 12/26/20 documented as of this encounter
--- OUTSIDE RECORDS SUMMARY | 2025-03-26 22:58 | XMS_ITS | Encounter Summary ---
Author Organization [employer] Address [address] [facility] 7t [place] [address] Care Team Providers Care Buckle Strap Puncher Name Role Phone Rosalba Shin MD Primary Care Provide r Reason for Visit * Reason Comments Med Refill Encounter Details Date Type Department Care Team ([facility] st Contact Info) Description 12/02/2024 Refill [facility] WALK-IN CENTER 230 [place], [place] [phone] Name, MD Gino [address] [place] [address] Social History Tobacco Use Types Packs/Day Years [...] Info) Description 04/20/2025 10:45 AM EDT Telemedicine [facility] MEDICINE [address] [place] [phone] Rosalba Shin MD [address] [place] [address] 05/05/2025 11:15 AM EDT Office Visit [facility] MEDICINE [address] [place] [phone] Alban Diaz MD [address] [place] [address] 05/25/2025 11:15 AM EDT Office Visit [facility] OPTOMETRY [address] [place] [address] Aidee Miller, OD [address] [place] [address] documented as of this encounter Visit Diagnoses Not on filedocumented in this encounter Additional Health Concerns Assessment Noted Time PHQ-9 Depression Total Score: 0 08/12/20 24 11:42 AM EDT documented as of this encounter Care Teams Buckle Strap Puncher Relationship Specialty Start Date End Date Rosalba Shin MD [address] [place] [address] PCP - General Family Medicine 12/26/20 documented as of this encounter
--- OUTSIDE RECORDS SUMMARY | 2025-03-26 22:58 | XMS_ITS | Clinical Summary ---
Author Organization [facility] Address [address] [place] [address] Care Team Providers Care Coding Validator Name Role Phone Unavailable Primary Care Provider [...] Vaccine (1 of 2) 2016 COVID-19 Vaccine (1 - 2023- season) 2024
--- OUTSIDE RECORDS SUMMARY | 2025-03-26 22:58 | XMS_ITS | Encounter Summary ---
Author Organization [employer] Address [address] [facility] 7t [place] [address] Care Team Providers Care Edge Stainer Name Role Phone Rosalba Shin MD Primary Care Provide r Encounter Details Date Type Department Care Team (Latest Contact Info) Description 03/24/2025 Travel Social History Tobacco Use Types Packs/Day [...] Info) Description 04/20/2025 10:45 AM EDT Telemedicine [facility] MEDICINE [address] [place] [phone] Rosalba Shin MD [address] [place] [phone] 05/05/2025 11:15 AM EDT Office Visit [facility] MEDICINE [address] [place] [phone] Alban Diaz MD 230 [place] [address] 05/25/2025 11:15 AM EDT Office Visit [facility] OPTOMETRY [address] [place] [address] Tarka, Aidee, OD [address] [place] [address] documented as of this encounter Visit Diagnoses Not on filedocumented in this encounter Additional Health Concerns Assessment Noted Time PHQ-9 Depression Total Score: 0 08/12/20 24 11:42 AM EDT documented as of this encounter Care Teams Edge Stainer Relationship Specialty Start Date End Date Rosalba Shin MD [address] [place] [phone] PCP - General Family Medicine 12/26/20 documented as of this encounter
--- OUTSIDE RECORDS SUMMARY | 2025-03-26 22:58 | XMS_ITS | Encounter Summary ---
Author Organization [employer] Address [address] [facility] 7t [place] [address] Care Team Providers Care Child Protective Services Specialist Name Role Phone Rosalba Shin MD Primary Care Provide r Reason for Visit * Reason Comments Med Refill Encounter Details Date Type Department Care Team (Late st Contact Info) Description 03/10/2023 Refill [facility] MEDICINE [address] [place] [phone] Name, MD Gino [address] [place] [address] [phone] Chronic low back pain, unspecified back pain [...] Description 04/20/2025 10:45 AM EDT Telemedicine [facility] MEDICINE [address] [place] [address] [phone] Rosalba Shin MD [address] [place] [address] [phone] 05/05/2025 11:15 AM EDT Office Visit [facility] MEDICINE [address] [place] [address] Alban Diaz MD 230 [place] [address] 05/25/2025 11:15 AM EDT Office Visit [facility] OPTOMETRY [address] [place], [place] [phone] Aidee Miller, OD [address] [place], [place] [phone] documented as of this encounter Visit Diagnoses Diagnosis Chronic low back pain, unspecified back pain laterality, unspecified whether sciatica present documented in this encounter Care Teams Child Protective Services Specialist Relationship Specialty Start Date End Date Rosalba Shin MD [address] [place] [address] [phone] PCP - General Family Medicine 12/26/20 documented as of this encounter
--- OUTSIDE RECORDS SUMMARY | 2025-03-26 22:58 | XMS_ITS | Encounter Summary ---
Author Organization [employer] Address [address] [facility] 7t [place] [address] Care Team Providers Care Director Food Safety Name Role Phone Rosalba Shin MD Primary Care Provide r Reason for Visit * Reason Comments Med Refill Encounter Details Date Type Department Care Team (Late st Contact Info) Description 03/17/[address] [facility] MEDICINE [address] [place] [phone] Rosalba Shin MD [address] [place] [phone] Primary insomnia Social History Tobacco Use Types [...] Info) Description 04/20/2025 10:[address] [facility] MEDICINE [address] [place] [address] [phone] Rosalba Shin MD [address] [place] [phone] 05/05/2025 11:15 AM EDT Office Visit [facility] MEDICINE [address] [place] [phone] Alban Diaz MD [address] [place] [address] 05/25/2025 11:15 AM EDT Office Visit [facility] OPTOMETRY [address] [place] [address] Aidee Miller, OD [address] [place], [place] [phone] documented as of this encounter Visit Diagnoses Diagnosis Primary insomnia Persistent disorder of initiating or maintaining sleep documented in this encounter Care Teams Director Food Safety Relationship Specialty Start Date End Date Rosalba Shin MD [address] [place], [place] [phone] PCP - General Family Medicine 12/26/20 documented as of this encounter
--- OUTSIDE RECORDS SUMMARY | 2025-03-26 22:58 | XMS_ITS | Encounter Summary ---
Author Organization [employer] Address [address] [facility] 7t [place] [address] Care Team Providers Care Hull Line Crew Member Name Role Phone Rosalba Shin MD Primary Care Provide r Encounter Details Date Type Department Care Team (Late st Contact Info) Description 03/24/2025 4:00 PM EDT Office Visit [facility] MEDICINE 230 [place] [address] Maria L Navarro MD [address] [place] [address] Muscle spasm (Primary Dx) Social History Tobacco Use Types [...] Mass Index 34.61 03/24/2025 3:22 PM EDT documented in this encounter Plan of Treatment Upcoming Encounters Date Type Department Care Team (Late st Contact Info) Description 04/20/2025 10:45 AM EDT Telemedicine [facility] MEDICINE [address] [place] [phone] Rosalba Shin MD [address] [place] [address] 05/05/2025 11:15 AM EDT Office Visit [facility] MEDICINE [address] [place] [address] Alban Diaz MD [address] [place] [address] 05/25/2025 11:15 AM EDT Office Visit [facility] OPTOMETRY [address] [place], [place] [phone] Aidee Miller, OD [address] [place] [address] documented as of this encounter Visit Diagnoses Diagnosis Muscle spasm- Primary Spasm of muscle documented in this encounter Administered Medications Inactive Administered Medications - up to 3 most recent administrations Medication Order MAR Action Action Date Dose Rate Site ketorolac (Toradol) injection 30 mg 30 mg, Intramuscular, Once, On Thu03/24/25 at 1545, For 1 doseIndications:Muscle spasm Given 03/24/2025 3:45 PM EDT 30 mg Right Deltoid documented in this encounter Additional Health Concerns Assessment Noted Time PHQ-9 Depression Total Score: 0 08/12/20 24 11:42 AM EDT documented as of this encounter Care Teams Hull Line Crew Member Relationship Specialty Start Date End Date Rosalba Shin MD [address] [place] [address] PCP - General Family Medicine 12/26/20 documented as of this encounter
== END 2025-03-26 22:59 | disposition left against medical advice (07) ==
PROVIDERS: Emergency Provider Internal Medicine; PCP Internal Medicine
DX: M25.531 Pain in right wrist (principal)
CPT/HCPCS: 99281

== ENCOUNTER 2025-03-26 23:23 | Emergency (ER) | payer MEDICAID, SELFPAY ==
[2025-03-26 23:43] VITALS: BP 164/82; PULSE 88; RESP 20; TEMP 36.1; O2SAT 98; BMI 33.3
--- NOTE | 2025-03-27 00:37 | ED.EXTPRO ---
HPI - Extremity Problem General Chief complaint: Extremity Injury, Upper Stated complaint: arm pain Time Seen by Provider: 03/27/25 00:35 Source: patient Limitations: language barrier History of Present Illness ED Provider: Malorie Erickson PA-C HPI Narrative: 59-year-old female with a history of morbid obesity, chronic pain from multiple pain syndromes involving rheumatoid arthritis, osteoarthritis, fibromyalgia, bilateral carpal tunnel, chronic back pain, who presents with right wrist pain. Patient states she saw her primary care, was given medication, however states it is not helpful. Patient denies fall, new activity or heavy lifting that could have precipitated her symptoms. Denies redness warmth or swelling of the joint. Patient states she has an appointment pending with an cyber transport systems specialist. Related Data Home Medications ?Medication ?Instructions ?Recorded ?Confirmed albuterol sulfate 90 mcg/actuation 2 puff inhalation Q6H PRN wheezing 07/13/23 12/15/24 aerosol inhaler (Ventolin HFA) aspirin 81 mg tablet,delayed 81 mg PO DAILY 07/13/23 12/15/24 release cholecalciferol (vitamin D3) 50 50 mcg PO QAM 07/13/23 12/15/24 mcg (2,000 unit) capsule (Vitamin D3) cyclobenzaprine 5 mg tablet 5 mg PO Q8H PRN muscle spasm 07/13/23 12/15/24 diclofenac sodium 1 % topical gel 2 g topical QID 07/13/23 12/15/24 ferrous sulfate 325 mg (65 mg 325 mg PO BID 07/13/23 12/15/24 iron) tablet (FeroSul) hydrochlorothiazide 25 mg tablet 25 mg PO DAILY 07/13/23 12/15/24 lidocaine 5 % topical patch 0 patch topical 07/13/23 12/15/24 lisinopril 5 mg tablet 5 mg PO QAM 07/13/23 12/15/24 loratadine 10 mg tablet 10 mg PO DAILY PRN 07/13/23 12/15/24 paroxetine HCl 20 mg tablet 20 mg PO DAILY 07/13/23 12/15/24 prednisolone acetate 1 % eye 1 drp ophthalmic-Right QID 07/13/23 12/15/24 drops,suspension rosuvastatin 10 mg tablet 10 mg PO BEDTIME 07/13/23 12/15/24 sennosides 8.6 mg tablet (senna) 8.6 mg PO PRN 07/13/23 12/15/24 sodium chloride 0.65 % nasal spray 2 spray intranasal congestion 07/13/23 12/15/24 aerosol (Deep Sea Nasal) triamcinolone acetonide 0.1 % topical BID 07/13/23 12/15/24 topical ointment zolpidem 10 mg tablet 10 mg PO BEDTIME PRN insomnia 07/13/23 12/15/24 levothyroxine 200 mcg tablet 200 mcg PO DAILY 07/22/23 12/15/24 acetaminophen 500 mg tablet 500 mg PO Q6H PRN 08/21/23 12/15/24 dextran 70-hypromellose 0.1 %-0.3 1 drp ophthalmic (eye) TID PRN 08/21/23 12/15/24 % eye drops (Lubricating Tears) levothyroxine 25 mcg tablet 25 mcg PO QAM 08/21/23 12/15/24 triamcinolone acetonide 0.1 % appl topical pain 08/21/23 12/15/24 topical cream venlafaxine 37.5 mg 37.5 mg PO QAM 08/21/23 12/15/24 capsule,extended release 24 hr Previous Rx's ?Medication ?Instructions ?Recorded tramadol 50 mg tablet 50 mg PO Q6H PRN pain #20 tabs 10/11/21 benzonatate 200 mg capsule 200 mg PO BID PRN cough #14 caps 06/26/24 doxycycline hyclate 100 mg capsule 100 mg PO BID 7 days #14 caps 06/26/24 fluticasone furoate 200 1 inh inhalation DAILY #1 ea 12/15/24 mcg-vilanterol 25 mcg/dose inhalation powder (Breo Ellipta) ketorolac 10 mg tablet 10 mg PO QID PRN pain #20 tabs 03/27/25 methocarbamol 750 mg tablet 1,500 mg (2 x 750 mg) PO Q8H PRN 03/27/25 pain, moderate #25 tabs methylprednisolone 4 mg tablets in 4 mg PO QAM #21 ea 03/27/25 a dose pack (Medrol (Jurgen)) Allergies Allergy/AdvReac Type Severity Reaction Status Date / Time No Known Allergies Allergy Verified 03/26/25 23:45 [No Known Allergies*] Review of Systems Review of Systems: Yes all other systems are reviewed and are negative Constitutional: Constitutional: Denies fatigue and Denies fever(s) Musculoskeletal: Musculoskeletal: Reports arthralgias and Denies joint swelling Integumentary/Breasts: Skin/Breast: Denies erythema Endocrine: Endocrine: Denies fatigue PMFSH Past Medical History Attestation statement: The following information was validated with the patient. Medical History (Updated 03/27/25 @ 01:20 by ABDOUL Alexandra) Breast pain Fibromyalgia Anxiety and depression Bilateral carpal tunnel syndrome Type 2 diabetes mellitus Essential hypertension Sjogren's syndrome Rheumatoid arthritis involving multiple sites with positive rheumatoid factor Acquired hypothyroidism Cervical radiculopathy Lumbar radiculopathy Asthma Surgical History H/O gastric bypass Hx of cataract extraction No history of previous surgery Family History Family History Mother Arthritis Father No problems noted. Other Medical history unknown Social History Social History Household Members: None Alcohol intake: never Patient Tobacco Use Status: Never used Tobacco Advance Directives: No Advance Directives Information Provided: Yes Do you have a plan to hurt others: No Plan Current occupational status: disabled Physical Exam Vital Signs: Vital Signs: Last Vital Signs Temp 97.0 F 03/26/25 23:43 Pulse 88 03/26/25 23:43 Resp 20 03/26/25 23:43 BP 164/82 H 03/26/25 23:43 Pulse Ox 98 03/26/25 23:43 O2 Del Method Room Air 03/26/25 23:43 BMI result Body Mass Index 33.3 Const: Other: Awake, crying Orientation/consciousness: patient oriented x3 Resp: Effort & Inspection: normal respiratory effort Cardio: Other: normal peripheral perfusion Skin: Other: warm dry no rash Neuro: General: patient oriented x3, gait normal, no focal motor deficits and CN's II-XI intact bilaterally Extrem: Other: no swelling warmth or erythema noted over the hand or right wrist, no deformity Psych: Other: cooperative Medications Administered Discontinued Medications Generic Name Dose Route Start Last Admin Trade Name Freq PRN Reason Stop Dose Admin Diazepam 5 mg 03/27/25 01:04 03/27/25 01:07 Diazepam 5 Mg Tablet PO 03/27/25 01:05 5 mg ONCE ONE Administration Ketorolac Tromethamine 15 mg 03/27/25 00:45 03/27/25 01:07 Ketorolac Tromethamine 15 Mg/Ml Vial IM 03/27/25 00:46 15 mg ONCE ONE Administration Prednisone 20 mg 03/27/25 00:45 03/27/25 01:07 Prednisone 20 Mg Tablet PO 03/27/25 00:46 20 mg ONCE ONE Administration Medical Decision Making Medical Decision Making MDM Narrative: 59-year-old female with a history of morbid obesity, chronic pain from multiple pain syndromes involving rheumatoid arthritis, osteoarthritis, fibromyalgia, bilateral carpal tunnel, chronic back pain, who presents with right wrist pain. Patient states she saw her primary care, was given medication, however states it is not helpful. Patient denies fall, new activity or heavy lifting that could have precipitated her symptoms. Denies redness warmth or swelling of the joint. Patient states she has an appointment pending with an cyber transport systems specialist. problem: Multiple chronic pain syndromes History: Per patient I have considered the following differential diagnoses: Exacerbation of chronic pain, fracture, dislocation, septic effusion Plan: There was no new injury, imaging not warranted. There was no evidence of septic joint on exam. The patient is having exacerbation of her chronic pain. She has already in a brace. We will send with to anti-inflammatories and a different muscle relaxant. The patient can continue to follow up with her orthopedist. Discharge Plan Discharge Clinical Impression: Arthralgia of wrist, right Patient Disposition: Home, Self-Care Instructions: Arthralgia (ED) Additional Instructions: see home care instructions. Use the brace as directed. Use the ketorolac as directed take it with food. Take the Medrol Dosepak as directed, take it in the mornings. Use the methocarbamol as needed for further pain, this is a muscle relaxant, do not drive or operate machinery while taking this medication it will cause drowsiness. You need to call your orthopedic surgeon, to try and see if you can be seen sooner in consult. Prescriptions: New methylprednisolone [Medrol (Jurgen)] 4 mg tablets,dose pack 4 mg PO QAM Qty: 21 0RF Rx Instructions: Take per package instructions ketorolac 10 mg tablet 10 mg PO QID PRN (Reason: pain) Qty: 20 0RF Rx Instructions: maximum total duration of 5 days from all oral, intranasal, or parenteral formulations. the patient received an intramuscular dose of Toradol here in the emergency room. methocarbamol 750 mg tablet 1,500 mg PO Q8H PRN (Reason: pain, moderate) Qty: 25 0RF No Action tramadol 50 mg tablet 50 mg PO Q6H PRN (Reason: pain) Qty: 20 0RF benzonatate 200 mg capsule 200 mg PO BID PRN (Reason: cough) Qty: 14 0RF doxycycline hyclate 100 mg capsule 100 mg PO BID 7 Days Qty: 14 0RF cyclobenzaprine 5 mg tablet 5 mg PO Q8H PRN (Reason: muscle spasm) albuterol sulfate [Ventolin HFA] 90 mcg/actuation HFA aerosol inhaler 2 puff inhalation Q6H PRN (Reason: wheezing) cholecalciferol (vitamin D3) [Vitamin D3] 50 mcg (2,000 unit) capsule 50 mcg PO QAM diclofenac sodium 1 % gel 2 g topical QID rosuvastatin 10 mg tablet 10 mg PO BEDTIME Deep Sea Nasal 0.65 % aerosol,spray 2 spray intranasal loratadine 10 mg tablet 10 mg PO DAILY PRN hydrochlorothiazide 25 mg tablet 25 mg PO DAILY lisinopril 5 mg tablet 5 mg PO QAM lidocaine 5 % adhesive patch,medicated 0 patch topical paroxetine HCl 20 mg tablet 20 mg PO DAILY aspirin 81 mg tablet,delayed release (DR/EC) 81 mg PO DAILY sennosides [senna] 8.6 mg tablet 8.6 mg PO PRN zolpidem 10 mg tablet 10 mg PO BEDTIME PRN (Reason: insomnia) triamcinolone acetonide 0.1 % ointment topical BID prednisolone acetate 1 % drops,suspension 1 drp ophthalmic-Right QID ferrous sulfate [FeroSul] 325 mg (65 mg iron) tablet 325 mg PO BID levothyroxine 200 mcg tablet 200 mcg PO DAILY venlafaxine 37.5 mg capsule,extended release 24hr 37.5 mg PO QAM levothyroxine 25 mcg tablet 25 mcg PO QAM Lubricating Tears 0.1-0.3 % drops 1 drp ophthalmic (eye) TID PRN triamcinolone acetonide 0.1 % cream topical acetaminophen 500 mg tablet 500 mg PO Q6H PRN fluticasone furoate-vilanterol [Breo Ellipta] 200-25 mcg/dose blister with device 1 inh inhalation DAILY Qty: 1 6RF Print Language: Faroese
[2025-03-27] MEDS: Ketorolac Tromethamine 15 MG/ML VIAL IM (01:07)
[2025-03-27] MEDS: predniSONE 20 MG TABLET PO (01:07)
[2025-03-27] MEDS: diazePAM 5 MG TABLET PO (01:07)
[2025-03-27 01:37] VITALS: BP 167/75; PULSE 90; RESP 16; TEMP 36.9; O2SAT 95
[2025-03-27 01:43] VITALS: BP 167/75; PULSE 90; RESP 16; TEMP 36.9; O2SAT 95
--- NOTE | 2025-03-27 01:54 | PC.NURSE ---
pt tearful, pt reports her wrist is still in pain. julian jaeger at bedside with prime broker to explain discharge to pt.
== END 2025-03-27 02:08 | disposition home or self-care (01) ==
PROVIDERS: Emergency Provider Emergency Medicine Emergency Medical Services; PCP Internal Medicine
DX: M25.531 Pain in right wrist (principal); G89.4 Chronic pain syndrome; E11.9 Type 2 diabetes mellitus without complications; I10 Essential (primary) hypertension; J45.909 Unspecified asthma, uncomplicated; M06.9 Rheumatoid arthritis, unspecified; Z79.899 Other long term (current) drug therapy
CPT/HCPCS: 96372; 99284; J1885

== ENCOUNTER 2025-03-29 13:02 | Outpatient (AMB) | payer MEDICAID, SELFPAY ==
--- OUTSIDE RECORDS SUMMARY | 2025-03-29 13:19 | XMS_ITS | Clinical Summary ---
Author Organization [facility] Address [address] [place] [address] Care Team Providers Care [employer] Tm1 Developer Name Role Phone Unavailable Primary Care Provider [...]
[2025-03-29 13:28] VITALS: BP 120/56; PULSE 80; O2SAT 98; BMI 33.6
--- NOTE | 2025-03-29 13:28 | MHC.OFFVIS ---
Vital Signs 03/29/25 13:28 Height 5 ft 5 in Weight 201 lb 11.567 oz BMI 33.6 BP 120/56 L Blood Pressure Location Lt brachial Position Sitting Pulse 80 Pulse Source Pulse Oximeter Pulse Oximetry (%) 98 Oxygen Delivery Method Room Air Intake Visit Reasons: Asthma Allergies No Known Allergies [No Known Allergies*] Allergy (Verified 03/29/25 13:31) HPI HPI Asthma: Details: 59-year-old lady, nonsmoker, now followed for asthma and environmental allergies. She continues on Breo and albuterol MDI with good symptom control. She denies recent exacerbations. Patient does complain of significant carpal tunnel syndrome symptoms in her right hand/arm. [facility] Medical History (Updated 03/29/25 @ 14:11 by Sebastian Kemp MD) Breast pain Fibromyalgia Anxiety and depression Bilateral carpal tunnel syndrome Type 2 diabetes mellitus Essential hypertension Sjogren's syndrome Rheumatoid arthritis involving multiple sites with positive rheumatoid factor Acquired hypothyroidism Cervical radiculopathy Lumbar radiculopathy Asthma Surgical History H/O gastric bypass Hx of cataract extraction No history of previous surgery Family History Mother Arthritis Father No problems noted. Other Medical history unknown Social History Household Members: None Alcohol intake: never Patient Tobacco Use Status: Never used Tobacco Current occupational status: disabled Review of Systems Const Denies chills, Denies fatigue, Denies fever(s), Denies weight gain and Denies weight loss Eyes Denies blurry vision and Denies itchy eyes ENT Denies dizziness Card Denies chest pain, Denies leg edema, Denies lightheadedness, Denies palpitations, Denies dyspnea on exertion, Denies orthopnea and Denies other Resp Denies cough, Denies dyspnea on exertion and Denies wheezing GI Denies hematochezia and Denies change in stool character Musc Denies abnormal gait, Denies muscle weakness, Denies numbness, Denies radiating pain into limb and Denies tingling Skin/Breast Denies rash Neuro Denies abnormal gait, Denies dizziness, Denies memory loss, Denies numbness and Denies tingling Psych Denies abnormal sleep pattern, Denies anxiety and Denies memory loss Endo Denies fatigue and Denies palpitations Jose Guadalupe/Lymph Denies easy bruising Aller/Immun Denies itchy eyes, Denies seasonal rhinorrhea and Denies wheezing Physical Exam Vital Signs: Last Vital Signs Pulse 80 03/29/25 13:28 BP 120/56 L 03/29/25 13:28 Pulse Ox 98 03/29/25 13:28 Oxygen Delivery Method Room Air 03/29/25 13:28 BMI result Body Mass Index 33.6 Const General: no acute distress and alert Nutritional Appearance: not obese Orientation/consciousness: Other orientation findings ( oriented) HEENT Head: Yes atraumatic Eyes General: appearance normal, both eyes and all related structures Sclerae: sclerae normal EOM: EOMs intact bilaterally Neck Neck: Yes supple Lymphatic: no lymphadenopathy noted Resp Effort & Inspection: normal respiratory effort and no use of accessory muscles Auscultation: clear to auscultation bilaterally Cardio Rate: regular rate Rhythm: regular rhythm Heart sounds: no gallops, no murmurs and no rubs Skin General skin exam: other ( warm) Extrem General: No clubbing, No cyanosis and No edema Assessment & Plan Assessment & Plan (1) Asthma: Code(s): J45.909 - Unspecified asthma, uncomplicated Category: Medical Plan: Well controlled on current regimen of Breo and albuterol MDI. Continue current regimen. (2) Environmental allergies: Code(s): Z91.09 - Other allergy status, other than to drugs and biological substances Category: Medical Plan: Results of immunologic workup reviewed, patient does have underlying immunologic component to his symptoms that is currently controlled on loratadine. Continue current regimen. (3) Carpal tunnel syndrome: Code(s): G56.00 - Carpal tunnel syndrome, unspecified upper limb Category: Medical Plan: Patient with significant pain complaints, will refer to hand surgery for further evaluation. Orders: Referrals Orthopedics Referral G56.00 - Carpal tunnel syndrome, unspecified upper limb Medications: New albuterol sulfate 90 mcg/actuation (Ventolin HFA) 2 puffs inhalation Q6H PRN 1 ea 6RF wheezing Coding Level of Care Code Est Pt Level 4 (03772) Complex EM visit Add On G2211 Diagnoses Asthma J45.909 Environmental allergies Z91.09 Carpal tunnel syndrome G56.00
== END 2025-03-29 13:56 | disposition home or self-care (01) ==
LOC: HO.HPS 13:02
PROVIDERS: PCP Internal Medicine; Visit Provider Internal Medicine Pulmonary Disease
DX: J45.909 Unspecified asthma, uncomplicated (principal); Z91.09 Other allergy status, other than to drugs and biological substances; G56.00 Carpal tunnel syndrome, unspecified upper limb
CPT/HCPCS: 99214

== ENCOUNTER → 2025-03-29 13:02 | Outpatient (BNVA) | payer MEDICAID, SELFPAY | PROVIDERS: PCP Internal Medicine; Visit Provider Internal Medicine Pulmonary Disease | DX: J45.909 Unspecified asthma, uncomplicated (principal); G56.01 Carpal tunnel syndrome, right upper limb; Z91.09 Other allergy status, other than to drugs and biological substances; Z79.899 Other long term (current) drug therapy | CPT/HCPCS: 99212 ==

== ENCOUNTER → 2025-04-23 14:45 | Outpatient (BNV) | payer MEDICAID, SELFPAY | PROVIDERS: PCP Internal Medicine; Visit Provider Radiology Diagnostic Radiology | DX: S83.242A Other tear of medial meniscus, current injury, left knee, initial encounter (principal); S83.282A Other tear of lateral meniscus, current injury, left knee, initial encounter; M17.12 Unilateral primary osteoarthritis, left knee; M71.22 Synovial cyst of popliteal space [Baker], left knee; M25.462 Effusion, left knee | CPT/HCPCS: 73721 ==

== ENCOUNTER 2025-04-23 14:47 | Outpatient (REF) | payer MEDICAID, SELFPAY ==
--- NOTE | ~2025-04-23 | MR_ITS ---
CLINICAL HISTORY: acute on chronic pain and swelling MR left knee without gadolinium Comparison: None Findings: No fractures. No pathologic bone lesions. There is mild subchondral marrow edema within the weight-bearing aspects of the lateral femoral condyle and lateral tibial plateau. Subchondral microcyst formation within the lateral patellar facet. Lateral patellar subluxation. Severe articular cartilage loss overlying the weight-bearing aspects of the medial and lateral compartments. Articular cartilage fibrillation overlies the lateral patellar facet. Moderate knee joint effusion. Moderate Quintero's cyst. Small ganglion cyst along the popliteus. Anterior and posterior cruciate ligaments are intact. Collateral ligaments are intact. No disruption of the patellar retinacula or iliotibial band. No tears of the quadriceps, patellar, popliteus, or flexor tendons. Medial extrusion of the medial meniscus. Linear horizontal high T2 signal intensity traverses the inner, middle, and peripheral thirds of the medial meniscal body and posterior horn, demonstrating inferior articular surface extension, indicating horizontal tearing. There is amorphous and linear horizontal high T2 signal intensity within the inner, middle, and peripheral thirds of the anterior horn, body, and posterior horn lateral meniscus, demonstrating superior and inferior articular surface extension, indicating complex tearing. IMPRESSION: 1. Tricompartmental osteoarthritis with associated articular cartilage loss. 2. Medial and lateral meniscal tearing. 3. Knee joint effusion and Quintero's cyst. This document has been electronically signed by: Ara Fernandez MD on 04/24/2025 15:55:26
== END 2025-04-23 14:48 | disposition home or self-care (01) ==
LOC: HO.MRI 14:47
PROVIDERS: PCP Internal Medicine; Visit Provider Internal Medicine
DX: M25.562 Pain in left knee (principal); G89.29 Other chronic pain
CPT/HCPCS: 73721

== ENCOUNTER 2025-06-01 10:32 | Outpatient (REF) | payer MEDICAID, SELFPAY ==
--- OUTSIDE RECORDS SUMMARY | 2025-06-02 11:00 | XMS_ITS | Clinical Summary ---
Author Organization [facility] Address [address] [place] [address] Care Team Providers Care Web Methods Developer Name Role Phone Unavailable Primary Care [...]
== END 2025-06-01 10:33 | disposition home or self-care (01) ==
LOC: HO.HOSX 10:32
PROVIDERS: Visit Provider Physician Assistant
DX: Z13.89 Encounter for screening for other disorder (principal)

== ENCOUNTER 2025-07-25 08:27 | Outpatient (AMB) | payer MEDICAID, SELFPAY ==
--- OUTSIDE RECORDS SUMMARY | 2025-07-24 14:00 | XMS_ITS | Encounter Summary ---
Author Organization [employer] Address [address] [facility] [address] [place] [address] Care Team Providers Care Head Gauge Unit Operator Name Role Phone Rosalba Shin MD Primary Care Provide r Encounter Details Date Type Department Care Team (Latest Contact Info) Description 07/24/2025 2:00 PM EDT Office Visit [facility] [address] [place] [address] Anna Mata FNP [address] [place] [address] Costochondritis (Primary Dx) Social History Tobacco Use Types [...] Sign Reading Time Taken Comments Blood Pressure 122/78 07/24/2025 12:51 PM EDT Pulse 83 07/24/2025 12:51 PM EDT Temperature 36.7 C (98 F) 07/24/2025 12:51 PM EDT Respiratory Rate - - Oxygen Saturation 100% 07/24/2025 12:51 PM EDT room air Inhaled Oxygen Concentration - - Weight 92.3 kg (203 lb 6.4 oz) 07/24/2025 12:51 PM EDT Height - - Body Mass Index 33.85 07/11/2025 2:26 PM EDT documented in this encounter Progress Notes * BALJIT Dudley - 07/24/2025 2:00 PM EDT Subjective Patient ID: Kerline Gutierrez is a 59 y.o. female. Facing Baster Jumpbasting Jefry present and served as bilingual interpreter during visit. Kerline reports sharp pain to left upper chest area when she breathes in since midnight. She has had this feeling previously, it comes and goes intermittently. She has hx of asthma and follows with pulmonology and cardiology, she has cardiology appt tomorrow. Pain is reproducible with ROM and palpation. She does endorse recent heavy lifting at home. Review of Systems Constitutional: Negative for appetite change, fatigue and fever. HENT: Negative for ear pain, rhinorrhea and sore throat. Eyes: Negative for discharge. Respiratory: Negative for cough and shortness of breath. Cardiovascular: Negative for chest pain. Gastrointestinal: Negative for abdominal pain, constipation, diarrhea, nausea and vomiting. Genitourinary: Negative for difficulty urinating. Musculoskeletal: Positive for myalgias. Negative for arthralgias. Skin: Negative for rash and wound. Neurological: Negative for headaches. Hematological: Negative for adenopathy. Objective BP 122/78 (BP Location: Left arm, Patient Position: Sitting, BP Cuff Size: Adult) Pulse 83 Temp98 ??F (36.7 ??C) (Oral) Wt 203 lb 6.4 oz (92.3 kg) SpO2 100% Comment: room air BMI 33.85 kg/m?? Physical Exam Constitutional: Appearance: Normal appearance. HENT: Head: Normocephalic. Right Ear: External ear normal. Left Ear: External ear normal. Nose: Nose normal. Mouth/Throat: Mouth: Mucous membranes are moist. Eyes: Conjunctiva/sclera: Conjunctivae normal. Cardiovascular: Rate and Rhythm: Normal rate and regular rhythm. Heart sounds: Normal heart sounds. Pulmonary: Effort: Pulmonary effort is normal. Breath sounds: Normal breath sounds. Musculoskeletal: General: Tenderness present. Normal range of motion. Cervical back: Normal range of motion and neck supple. Skin: General: Skin is warm and dry. Capillary Refill: Capillary refill takes less than 2 seconds. Neurological: Mental Status: She is alert and oriented to person, place, and time. Psychiatric: Mood and Affect: Mood normal. Behavior: Behavior normal. Thought Content: Thought content normal. Judgment: Judgment normal. Assessment/Plan Diagnoses and all orders for this visit: Costochondritis Other orders - baclofen (Lioresal) 10 MG tablet; Take 1 tablet (10 mg) by mouth 3 times daily for 10 days. - naproxen (Naprosyn) 500 MG tablet; Take 1 tablet (500 mg) by mouth 2 times daily. chest pain likely caused by costochondritis. Heat therapy prn Naprosyn BID baclofen prn Diclofenac gel prn (has at home) Reviewed home ROM flexion exercise routine Consider xray and /or PT if no improvement RTC if sx worsen or persist documented in this encounter Plan of Treatment Upcoming Encounters Date Type Department Care Team (Late st Contact Info) Description 08/09/2025 11:15 AM EDT Telemedicine [facility] [address] [place] [address] Rosalba Shin MD [address] [place] [address] documented as of this encounter Visit Diagnoses Diagnosis Costochondritis- Primary Tietze's disease documented in this encounter Additional Health Concerns Assessment Noted Time PHQ-9 Depression Total Score: 0 08/12/20 11:42 AM EDT documented as of this encounter Care Teams Head Gauge Unit Operator Relationship Specialty Start Date End Date Rosalba Shin MD [address] [place] [id number] PCP - General Family Medicine 12/26/20 documented as of this encounter
[2025-07-25 08:29] VITALS: BP 118/60; PULSE 80; BMI 33.9
--- NOTE | 2025-07-25 08:29 | A.OFFVIS_ITS ---
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 Bilingual School Psychologist Required: Yes Bilingual School Psychologist Name: Torres King [phone] Accompanied by: Self / Same As Patient Allergies No Known Allergies (No Known Allergies*) Allergy (Verified 07/25/25 08:32) Medication List - Last Reconciled 07/25/25 by John Chahal MD acetaminophen 500 mg PO Q6H PRN albuterol sulfate 90 mcg/actuation (Ventolin HFA) 2 puffs inhalation Q6H PRN aspirin 81 mg PO DAILY baclofen 10 mg PO DAILY benzonatate 200 mg PO BID PRN cholecalciferol (vitamin D3) (Vitamin D3) 50 mcg PO QAM cyclobenzaprine 5 mg PO Q8H PRN dextran 70-hypromellose 0.1-0.3 % (Lubricating Tears) 1 drp ophthalmic (eye) TID PRN diclofenac sodium 1% 2 grams topical QID doxycycline hyclate 100 mg PO BID 7 days ferrous sulfate (FeroSul) 325 mg PO BID fluticasone furoate-vilanterol 200-25 mcg/dose (Breo Ellipta) 1 inh inhalation DAILY gabapentin 100 mg PO TID hydrochlorothiazide 25 mg PO DAILY ketorolac 10 mg PO QID PRN levothyroxine 200 mcg PO DAILY levothyroxine 25 mcg PO QAM lidocaine 5% 0 patches topical lisinopril 5 mg PO QAM loratadine 10 mg PO DAILY PRN methocarbamol 1,500 mg (2 x 750 mg) PO Q8H PRN methylprednisolone (Medrol (Jurgen)) 4 mg PO QAM naproxen 500 mg PO BEDTIME paroxetine HCl 20 mg PO DAILY rosuvastatin 10 mg PO BEDTIME sennosides (senna) 8.6 mg PO PRN sodium chloride 0.65% (Deep Sea Nasal) 2 sprays intranasal tramadol 50 mg PO Q6H PRN triamcinolone acetonide 0.1% appl topical triamcinolone acetonide 0.1% topical BID venlafaxine ER 37.5 mg PO QAM zolpidem 10 mg PO BEDTIME PRN HPI Comments Details: Kerline is here for consultation regarding chest pains. Difficult historian in spite of using paste up artist. Answers are difficult to understand. It seems that she has been getting sharp left-sided chest pains intermittently for a while now. Can happen any time. With and without exertion. Happen even yesterday. Apparently, she has been to clinic as well as ER for this. Previously high sensitivity troponin was unremarkable. There was no documented coronary disease or myocardial infarction. Otherwise, sometimes she gets short of breath with activity but not always. Heart racing sensations at different times. Many listed comorbidities. She is also on polypharmacy. [facility] Medical History (Updated 07/25/25 @ 09:04 by John Chahal MD) Breast pain Fibromyalgia Anxiety and depression Bilateral carpal tunnel syndrome Type 2 diabetes mellitus Essential hypertension Sjogren's syndrome Rheumatoid arthritis involving multiple sites with positive rheumatoid factor Acquired hypothyroidism Cervical radiculopathy Lumbar radiculopathy Asthma Surgical History H/O gastric bypass Hx of cataract extraction No history of previous surgery Family History Mother Arthritis Father No problems noted. Other Medical history unknown Social History Household Members: None Alcohol intake: never Patient Tobacco Use Status: Never used Tobacco Current occupational status: disabled Review of Systems Const Denies daytime sleepiness, Denies difficulty sleeping, Denies snoring, Denies stops breathing during sleep and Denies weakness Card Denies chest pain, Denies rapid heart rate, Denies irregular heart rhythm, Denies claudication, Denies leg edema, Denies lightheadedness, Denies palpitations, Denies dyspnea, Denies dyspnea on exertion, Denies orthopnea, Denies paroxysmal nocturnal dyspnea and Denies slow heart rate Resp Denies cough, Denies dyspnea, Denies dyspnea on exertion and Denies snoring GI Reports no additional complaints, Denies hematochezia, Denies change in stool character and Denies dyspepsia Musc Denies abnormal gait, Denies muscle weakness and Denies numbness Neuro Denies abnormal gait, Denies numbness and Denies weakness Endo Denies palpitations Physical Exam Vital Signs: Last Vital Signs Pulse 80 07/25/25 08:29 BP 118/60 07/25/25 08:29 BMI result Body Mass Index 33.9 Const General: comfortable and no acute distress Orientation/consciousness: patient oriented x3 HEENT Other: Unremarkable Head: Yes normal to inspection Neck Neck: Yes normal visual inspection Chest Chest palpation & inspection: normal inspection of the chest Resp Auscultation: clear to auscultation bilaterally Cardio Palpation: normal PMI Heart sounds: S1 normal heart sound present, S2 normal heart sound present, no gallops, no murmurs and no rubs GI Palpation (GI): Soft to palpation Back/Spine/Pelvis Other: unremarkable Skin General skin exam: no rashes or lesions noted Neuro General: patient oriented x3 Extrem General: Yes normal to inspection Psych Mental Status: mental status grossly normal Assessment & Plan Assessment & Plan (1) Precordial chest pain: Code(s): R07.2 - Precordial pain Category: Medical Plan: Baseline EKG-underlying sinus rhythm at 90/Min; no ischemic changes; normal IA and corrected QT. Available high sensitivity troponins are normal. The patient will undergo a heart ultrasound and a CT scan to evaluate the cause of her chest pain. These tests will help determine if there are any underlying cardiac issues contributing to her symptoms. (2) SOB (shortness of breath): Code(s): R06.02 - Shortness of breath Category: Medical Plan: The patient's dyspnea on exertion will be assessed in conjunction with the findings from the heart ultrasound and CT scan. These evaluations will help identify any potential cardiac or other causes. Plan Discussion Notes I discussed with the patient the need for further diagnostic testing, including a heart ultrasound and CT scan, to better understand her symptoms of chest pain and other concerns. We talked about the potential findings these tests could reveal and how they would guide her treatment plan. Patient was informed and verbally consented to the use of an ambient scribe for clinic note documentation during this visit. Orders: Orders CT Cardiac Coronary Angio Today I25.10 - Atherosclerotic heart disease of [place] coronary artery without angina pectoris, R07.2 - Precordial pain Basic Metabolic Panel Today R07.2 - Precordial pain CA echo transthoracic complete Today R07.2 - Precordial pain Patient Instructions: - Follow up with the scheduled heart ultrasound and CT scan. - Monitor symptoms and seek immediate care if chest pain worsens or new symptoms develop. Coding Level of Care Code New Pt Level 4 (25631) Complex EM visit Add On G2211 Diagnoses Precordial chest pain R07.2 SOB (shortness of breath) R06.02
--- OUTSIDE RECORDS SUMMARY | 2025-07-25 09:28 | XMS_ITS | Encounter Summary ---
Author Organization [employer] Address [address] [facility] [address]t [place] [address] Care Team Providers Care Baseball Inspector Name Role Phone Rosalba Shin MD Primary Care Provide r Reason for Visit * Reason Comments Med Refill Encounter Details Date Type Department Care Team ([facility] st Contact Info) Description 04/03/2025 Refill [facility] [address] [place], [place] [phone] Rosalba Shin MD [address] [place] [address] Fibromyalgia Social History Tobacco Use Types Packs/Day [...] Info) Description 08/09/2025 11:15 AM EDT Telemedicine [facility] [address] [place] [address] Rosalba Shin MD [address] [place] [address] documented as of this encounter Visit Diagnoses Diagnosis Fibromyalgia Unspecified myalgia and myositis documented in this encounter Additional Health Concerns Assessment Noted Time PHQ-9 Depression Total Score: 0 08/12/20 24 11:42 AM EDT documented as of this encounter Care Teams Baseball Inspector Relationship Specialty Start Date End Date Rosalba Shin MD [address] [place] [address] PCP - General Family Medicine 12/26/20 documented as of this encounter
--- OUTSIDE RECORDS SUMMARY | 2025-07-25 09:28 | XMS_ITS | Encounter Summary ---
Author Organization [employer] Address [address] [facility] 7t [place] [address] Care Team Providers Care Pipe Jeeper Name Role Phone Rosalba Shin MD Primary Care Provide r Reason for Visit * Reason Comments Med Refill Encounter Details Date Type Department Care Team ([facility] st Contact Info) Description 03/16/2025 Refill [facility] [address] [place] [address] Rosalba Shin MD [address] [place] [address] Fibromyalgia; Primary insomnia; Rash; Essential hypertension; Other [...] Info) Description 08/09/2025 11:15 AM EDT Telemedicine [facility] [address] [place] [address] Rosalba Shin MD [address] [place] [address] documented as of this encounter Visit Diagnoses [...] documented as of this encounter Care Teams Pipe Jeeper Relationship Specialty Start Date End Date Rosalba Shin MD [address] [place] [id number] PCP - General Family Medicine 12/26/20 documented as of this encounter
--- OUTSIDE RECORDS SUMMARY | 2025-07-25 09:28 | XMS_ITS | Encounter Summary ---
Author Organization [employer] Address [address] [facility] 7t [place] [address] Care Team Providers Care Mail Carriers Supervisor Name Role Phone Rosalba Shin MD Primary Care Provide r Reason for Visit * Reason Comments Med Refill Encounter Details Date Type Department Care Team ([facility] st Contact Info) Description 12/02/2024 Refill [facility] [address] [place], [place] [phone] Name, MD Gino [address] [place] [address] Social History Tobacco Use Types Packs/Day Years [...] Info) Description 08/09/2025 11:15 AM EDT Telemedicine [facility] [address] [place] [phone] Rosalba Shin MD [address] [place] [address] documented as of this encounter Visit Diagnoses Not on filedocumented in this encounter Additional Health Concerns Assessment Noted Time PHQ-9 Depression Total Score: 0 08/12/20 24 11:42 AM EDT documented as of this encounter Care Teams Mail Carriers Supervisor Relationship Specialty Start Date End Date Rosalba Shin MD [address] [place] [phone] PCP - General Family Medicine 12/26/20 documented as of this encounter
--- OUTSIDE RECORDS SUMMARY | 2025-07-25 09:28 | XMS_ITS | Encounter Summary ---
Author Organization [employer] Address [address] [facility] [address] [place] [address] Care Team Providers Care Concrete Boom Pump Operator Name Role Phone Rosalba Shin MD Primary Care Provide r Reason for Visit * Reason Comments Med Refill Encounter Details Date Type Department Care Team (Late st Contact Info) Description 10/22/2023 Refill [facility] [address] [place] [address] Maria L Navarro MD [address] [place] [address] Chronic low back pain, unspecified back pain [...] Info) Description 08/09/2025 11:15 AM EDT Telemedicine [facility] [address] [place] [phone] Rosalba Shin MD [address] [place] [address] documented as of this encounter Visit Diagnoses Diagnosis Chronic low back pain, unspecified back pain laterality, unspecified whether sciatica present documented in this encounter Additional Health Concerns Assessment Noted Time PHQ-9 Depression Total Score: 7 04/06/20 23 2:10 PM EDT documented as of this encounter Care Teams Concrete Boom Pump Operator Relationship Specialty Start Date End Date Rosalba Shin MD [address] [place] [id number] PCP - General Family Medicine 12/26/20 documented as of this encounter
--- OUTSIDE RECORDS SUMMARY | 2025-07-25 09:28 | XMS_ITS | Encounter Summary ---
Author Organization [employer] Address [address] [facility] 7t [place] [address] Care Team Providers Care Airport Operations Manager Name Role Phone Rosalba Shin MD Primary Care Provide r Encounter Details Date Type Department Care Team ([facility] st Contact Info) Description 08/26/2023 Abstract [facility] [address] [place], [place] [phone] Rosalba Shin MD [address] [place], [place] [phone] Social History Tobacco Use Types Packs/Day Years [...] t he electric, gas, oil or water [employer] threatened to shut off services in your [...] Info) Description 08/09/2025 11:15 AM EDT Telemedicine [facility] [address] [place], [place] [phone] Rosalba Shin MD [address] [place], [place] [phone] documented as of this encounter Procedures Procedure Name Priority Date/Time Associated Diagnosis Comments COLONOSCOPY Routine 06/01/2018 documented in this encounter Results * Hm Colonoscopy (06/01/2018) Colonoscopy Normal Normal Narrative Aditi Durand - 06/01/2018 Recommended 10 year follow up Historical Provider HEALTH MAINTENANCE Final Result documented in this encounter Visit Diagnoses Not on filedocumented in this encounter Additional Health Concerns Assessment Noted Time PHQ-9 Depression Total Score: 7 04/06/20 23 2:10 PM EDT documented as of this encounter Care Teams Airport Operations Manager Relationship Specialty Start Date End Date Rosalba Shin MD [address] [place], [place] [phone] PCP - General Family Medicine 12/26/20 documented as of this encounter
--- OUTSIDE RECORDS SUMMARY | 2025-07-25 09:28 | XMS_ITS | Encounter Summary ---
Author Organization [employer] Address [address] [facility] [address] [place] [address] Care Team Providers Care Traffic Chief Name Role Phone Rosalba Shin MD Primary Care Provide r Reason for Visit * Reason Comments Med Refill Encounter Details Date Type Department Care Team (Late st Contact Info) Description 03/10/2023 Refill [facility] [address] [place] [phone] Name, MD Gino [address] [place] [address] [phone] Chronic low back pain, unspecified back pain [...] Info) Description 08/09/2025 11:15 AM EDT Telemedicine [facility] [address] [place] [address] [phone] Rosalba Shin MD [address] [place] [address] [phone] documented as of this encounter Visit Diagnoses Diagnosis Chronic low back pain, unspecified back pain laterality, unspecified whether sciatica present documented in this encounter Care Teams Traffic Chief Relationship Specialty Start Date End Date Rosalba Shin MD [address] [place] [phone] PCP - General Family Medicine 12/26/20 documented as of this encounter
--- OUTSIDE RECORDS SUMMARY | 2025-07-25 09:28 | XMS_ITS | Encounter Summary ---
Author Organization [employer] Address [address] [facility] [address] [place] [address] Care Team Providers Care Wealth Management Consultant Name Role Phone Rosalba Shin MD Primary Care Provide r Encounter Details Date Type Department Care Team (Latest Contact Info) Description 07/24/2025 Travel Social History Tobacco Use Types Packs/Day [...] Info) Description 08/09/2025 11:15 AM EDT Telemedicine [facility] [address] [place] [phone] Rosalba Shin MD [address] [place] [phone] documented as of this encounter Visit Diagnoses Not on filedocumented in this encounter Additional Health Concerns Assessment Noted Time PHQ-9 Depression Total Score: 0 08/12/20 24 11:42 AM EDT documented as of this encounter Care Teams Wealth Management Consultant Relationship Specialty Start Date End Date Rosalba Shin MD [address] [place] [phone] PCP - General Family Medicine 12/26/20 documented as of this encounter
--- OUTSIDE RECORDS SUMMARY | 2025-07-25 09:28 | XMS_ITS | Clinical Summary ---
Author Organization [employer] Address [address] [facility] [address] [place] [address] Care Team Providers Care Supervisor [employer] Name Role Phone Rosalba Shin MD Primary [...] buttocks. 03/16/20 20 Active Deep Sea Nasal Cologne 0.65 % nasal sprayIndication s:Viral pharyngitis SPRAY [...] use of insulin ([facility]) 1 each 2 times daily. 1 kit 09/07/20 Active Lancets miscIndications :Type 2 diabetes mellitus without complication, without long-term current use of insulin ([facility]) 1 each 2 times daily. 100 each 2 09/07/20 Active Blood Pressure Monitor kitIndications: Essential hypertension Use as directed 3x/week 1 kit 09/07/20 Active FREESTYLE LITE test stripIndication s:Type 2 diabetes mellitus without complication, without long-term current use of insulin ([facility]) USE DIRECTED TO TEST BLOOD SUGAR TWICE DAILY 100 strip 11 05/30/20 24 Active lisinopril 10 MG tabletIndicatio ns:Hypertension , unspecified type Take 1 tablet (10 mg) by mouth in the morning. 30 tablet 11 07/13/20 24 Active TRUEplus Lancets 33G miscIndications :Type 2 diabetes mellitus without complication, without long-term current use of insulin ([facility]) USE TO TEST BLOOD SUGAR TWICE DAILY 100 each 1 07/21/20 24 Active rosuvastatin (Crestor) 20 MG tabletIndicatio ns:Type 2 diabetes mellitus without complication, without long-term current use of insulin ([facility]) Take 1 tablet (20 mg) by mouth [...] use of insulin ([facility]) 1 each 2 times daily. 100 each [...] USING. 13 g 2 12/07/19 25 Active acetaminophen (Tylenol 8 Hour) 650 [...] bedtime. 90 tablet 1 03/16/20 25 Active amoxicillin (Amoxil) 500 MG capsule Take 1 capsule by mouth every 6 (six) hours during the day. 12/26/19 25 Active doxycycline (Vibramycin) 100 MG capsule Take 1 capsule by mouth 2 times daily. 06/27/20 24 Active Breo Ellipta 200-25 MCG/ACT aerosol powder INHALE 1 PUFF BY MOUTH EVERY DAY AT THE SAME TIME RINSE MOUTH AFTER USING 03/16/20 25 Active cyclobenzaprine (Flexeril) 5 MG tabletIndicatio ns:Muscle spasm Take 1 tablet (5 mg) by mouth every 8 (eight) hours if needed for muscle spasms. 30 tablet 04/01/20 25 2025 Active gabapentin (Neurontin) 300 MG capsuleIndicati ons:Fibromyalgi a Take 1 capsule (300 mg) by mouth 3 times daily. 90 capsule 2 04/20/20 25 2025 Active Fluocinolone Acetonide Scalp 0.01 % oilIndications: Folliculitis APPLY TOPICALLY TO THE AFFECTED AREA(S) 3 TIMES A WEEK AT NIGHT WITH COVER ON HEAD, ONCE SYMPTOMS IMPROVE USE 3 TIMES PER MONTH 118.28 mL 05/12/20 25 Active venlafaxine XR (Effexor XR) 37.5 MG 24 hr capsuleIndicati ons:Hot flashes due to menopause TAKE 1 CAPSULE TWICE DAILY. DO NOT BREAK, CRUSH, DISSOLVE OR CHEW 60 capsule 2 05/12/20 25 Active lidocaine (Lidoderm) 5 % patchIndication s:Chronic low back pain, unspecified back pain laterality, unspecified whether sciatica present APPLY 1 PATCH TOPICALLY TO SKIN, LEAVE ON FOR 12 HOURS AND OFF FOR 12 HOURS DIRECTED 30 patch 05/25/20 25 Active loratadine (Claritin) 10 MG tabletIndicatio ns:Dermatitis,P ruritus of both eyes TAKE 1 TABLET BY MOUTH EVERY DAY NEEDED 90 tablet 06/08/20 25 Active cholecalciferol (D3 Super Strength) 50 MCG (2000 UT) capsule TAKE 1 CAPSULE BY MOUTH EVERY DAY IN THE MORNING 90 capsule 06/08/20 25 Active polyvinyl alcohol (Liquifilm Tears) 1.4 % ophthalmic solutionIndicat ions:Dry eye syndrome of unspecified lacrimal gland PLACE 1 DROP IN EACH EYE THREE TIMES DAILY IN THE MORNING, AT NOON, AND AT BEDTIME NEEDED FOR DRY EYES 30 mL 06/08/20 25 Active levothyroxine (Synthroid, Levoxyl) 200 MCG tabletIndicatio ns:Hypothyroidi sm, unspecified type TAKE 1 TABLET BY MOUTH ONCE DAILY 90 tablet 06/08/20 25 Active levothyroxine (Synthroid, Levoxyl) 25 MCG tabletIndicatio ns:Hypothyroidi sm, unspecified type TAKE 1 TABLET BY MOUTH EVERY MORNING 90 tablet 06/08/20 25 Active Ferrous Sulfate (iron) 325 (65 Fe) MG tabletIndicatio ns:Iron deficiency anemia, unspecified iron deficiency anemia type TAKE 1 TABLET BY MOUTH TWICE DAILY WITH ORANGE JUICE 180 tablet 06/08/20 25 Active zolpidem (Ambien) 10 MG tabletIndicatio ns:Primary insomnia Take 1 tablet (10 mg) by mouth if needed at bedtime for sleep for up to 5 days. 5 tablet 07/04/20 25 Active Diclofenac Sodium 1 % gelIndications: Chronic low back pain, unspecified back pain laterality, unspecified whether sciatica present APPLY 2 GRAMS TOPICALLY TO AFFECTED AREA(S) FOUR TIMES DAILY DIRECTED 100 g 1 07/10/20 25 Active hydroCHLOROthia zide (HYDRODiuril) 25 MG tabletIndicatio ns:Essential hypertension TAKE 1 TABLET BY MOUTH EVERY MORNING 90 tablet 1 07/10/20 25 Active baclofen (Lioresal) 10 MG tablet Take 1 tablet (10 mg) by mouth 3 times daily for 10 days. 30 tablet 07/24/20 25 2024 Active naproxen (Naprosyn) 500 MG tablet Take 1 tablet (500 mg) by mouth 2 times daily. 60 tablet 07/24/20 25 2024 Active hydroCHLOROthia zide (HYDRODiuril) 25 MG tabletIndicatio ns:Essential hypertension TAKE 1 TABLET BY MOUTH EVERY MORNING 90 tablet 1 12/29/19 25 2024 Discontinued(R eorder (will not trigger notification to Pharmacy)) traMADol (Ultram) 50 MG tabletIndicatio ns:Fibromyalgia Take 1 tablet (50 mg) by mouth every 8 (eight) hours for 5 days. 15 tablet 05/24/20 25 2024 Discontinued Diclofenac Sodium 1 % gelIndications: Chronic low back pain, unspecified back pain laterality, unspecified whether sciatica present APPLY 2 GRAMS TOPICALLY TO AFFECTED AREA(S) FOUR TIMES DAILY DIRECTED 100 g 1 05/24/20 25 2024 Discontinued zolpidem (Ambien) 10 MG tabletIndicatio ns:Primary insomnia TAKE 1 TABLET BY MOUTH AT BEDTIME NEEDED FOR SLEEP 30 tablet 05/24/20 25 2024 Discontinued traMADol (Ultram) 50 MG tabletIndicatio ns:Fibromyalgia TAKE 1 TABLET BY MOUTH EVERY 8 HOURS FOR 5 DAYS 15 tablet 07/04/20 25 2024 baclofen (Lioresal) 10 MG tablet Take 1 tablet (10 mg) by mouth 3 times daily for 10 days. 30 tablet 07/11/20 25 2024 Discontinued(R eorder (will not trigger notification to Pharmacy)) Hospital, Clinic, or Other Facility Administered Medication Ordered Dose Route Frequency Start Date End Date Status ketorolac (Toradol) injection 30 mgIndications:Acute neck pain,Acute strain of neck muscle, initial encounter 30 mg IM Once 07/11/2025 07/11/2025 Ended Active Problems Problem Noted Date Diagnosed Date Acute torticollis 03/27/2025 Alcohol intoxication 03/27/2025 Chronic shoulder pain 03/27/2025 Cyclic citrullinated peptide (CCP) antibody posi tive 03/27/2025 Esophageal foreign body 03/27/2025 Lumbar radiculopathy 03/27/2025 Lumbar spondylosis 03/27/2025 Sacroiliac joint pain 03/27/2025 Screening for viral disease 03/27/2025 Breast pain 03/27/2025 Encounter for testing for latent tuberculosis in fection 03/27/2025 Chronic pain of left knee 03/16/2025 Assessment [...] Dermatitis 08/11/2023 Fibromyalgia 04/06/2023 Assessment & Plan (04/20/2025 3:56 PM EDT): Patient was educated about multidisciplinary approach for her condition, it was advise cardiovascular exercise, maintain hydration, treat anxiety/depression and take medications as directed Crease her gabapentin to 300 mg every 8 hours I encourage patient to do low impact exercise I encourage patient to attend to acupuncture Assessment & Plan (03/16/2025 2:39 PM EDT): [...] carpal tunnel syndrome 04/06/2023 Assessment & Plan (04/20/2025 3:56 PM EDT): Advised patient to use wrist braces at bedtime and during the day as much as he can Assessment & Plan (08/12/2024 1:56 PM EDT): [...] positive rheumatoid factor 12/19/2015 Assessment & Plan (04/20/2025 3:57 PM EDT): Advised patient to follow-up with rheumatology Assessment & Plan (03/16/2025 2:39 PM EDT): [...] Encounters Date Type Department Care Team Description 07/24/2025 2:00 PM EDT Office Visit [facility] [address] [place] [address] Anna Mata FNP Costochondritis (Primary Dx) 07/24/2025 Refill [facility] [address] [place] [address] Rosalba Shin MD Fibromyalgia 07/24/2025 Travel 07/11/2025 2:40 PM EDT Office Visit [facility] [address] [place] [address] Gino Browning MD Acute strain of neck muscle, initial encounter (Primary Dx); Acute neck pain 07/11/2025 Travel 07/10/2025 Refill [facility] [address] [place] [address] Rosalba Shin MD Essential hypertension 07/09/2025 Refill [facility] [address] [place] [address] Rosalba Shin MD Chronic low back pain, unspecified back pain laterality, unspecified whether sciatica present; Essential hypertension 07/05/2025 9:15 AM EDT Office Visit [facility] [address] [place] [address] Lucretia Francisco, OD Presbyopia (Primary Dx) 07/05/2025 Travel 07/04/2025 Telephone [facility] [address] [place] [address] Rosalba Shin MD telephone call; Needs to schedule [employer] [facility] appt 07/03/2025 Refill [facility] [address] [place] [address] Rosalba Shin MD Primary insomnia; Fibromyalgia 06/07/2025 Refill [facility] [address] [place] [address] Rosalba Shin MD Dermatitis; Pruritus of both eyes; Dry eye syndrome of unspecified lacrimal gland; Hypothyroidism, unspecified type; Iron deficiency anemia, unspecified iron deficiency anemia type 05/25/2025 11:15 AM EDT Office Visit [facility] [address] [place] [phone] Aidee Miller, OD Old retinal detachment, partial (Primary Dx); Lamellar macular hole of right eye; Presbyopia; Type 2 diabetes mellitus without ophthalmic manifestations ([facility]) 05/25/2025 Refill [facility] [address] [place] [address] Rosalba Shin MD Chronic low back pain, unspecified back pain laterality, unspecified whether sciatica present 05/25/2025 Travel 05/24/2025 Refill [facility] [address] [place] [address] Rosalba Shin MD Fibromyalgia (Primary Dx) 05/24/2025 Refill [facility] [address] [place] [address] Rosalba Shin MD Chronic low back pain, unspecified back pain laterality, unspecified whether sciatica present; Primary insomnia 05/11/2025 Refill [facility] [address] [place] [address] Rosalba Shin MD Folliculitis; Hot flashes due to menopause 05/05/2025 11:15 AM EDT Office Visit [facility] [address] [place] [address] Alban Diaz MD Folliculitis (Primary Dx) 05/05/2025 Travel 04/28/2025 Results Follow-Up [facility] [address] [place] [address] Rosalba Shin MD MR Knee w/o Contrast Left from Last 3 Months Immunizations Immunization Administration Dates Next Due Hep B, adult [...] F) 07/24/2025 12:51 PM EDT Respiratory Rate 12 07/11/2025 2:26 PM EDT Oxygen Saturation 100% 07/24/2025 12:51 PM EDT room air Inhaled Oxygen Concentration - - Weight 92.3 kg (203 lb 6.4 oz) 07/24/2025 12:51 PM EDT Height 165.1 cm (5' 5 ) 07/11/2025 2:26 PM EDT Body Mass Index 33.85 07/11/2025 2:26 PM EDT Plan of Treatment Upcoming Encounters Date Type Department Care Team (Late st Contact Info) Description 08/09/2025 11:15 AM EDT Telemedicine [facility] [address] [place] [address] Rosalba Shin MD [address] [place] [address] Health Maintenance Due Date Last Done Comments [...] 07/13/2025 07/13/2024, 03/17, 07/16/2021, Additional history exists Influenza Vaccine (#1) 2025 , 08/13/2023, 08/28/2022, Additional history exists Alcohol/Substance Use Screening 08/12/2025 08/12/2024 Depression Screening 08/12/2025 08/12/2024, 08/12/20 24 Diabetes: Hemoglobin A1C 09/16/2025 025, 07/04/2024, 02/09/2024, Additional history exists SDOH Screening 03/09/2026 03/09/2025 Disability Screening 03/24/2026 03/24/2025 Tobacco Screening 07/11/2026 07/11/2025 Dental X-Ray: Full Mouth 03/05/2027 03/04/2024 Eye Exam 05/25/2027 05/25/2025, 05/16, 05/25/2025, Additional history exists Colonoscopy 06/01/2028 06/01/2018 Colorectal Cancer Screening 06/01/2028 Cervical Cancer Screening 09/22/2028 HPV/Cotest 09/22/2028 09/22/2023 Pap Smear 09/22/2028 09/22/2023, 09/22/2023 RSV Patients and Patients Aged 60 years or older (1 - 1-dose 75+ series) 2041 Hepatitis B Vaccines Completed 02/18/2017, 12/19/2015, 04/24/2014 Zoster Vaccines Completed 05/26/2022, 09/18/2020 Pneumococcal Vaccine: 50+ Years Completed 02/09/2024, 04/04/2009, 10/12/2001 COVID-19 Vaccine Completed 08/12/2024, , 09/17/2022, Additional history exists HIB Vaccines Aged Out [...] patient's age to complete this topic Meningococcal B Vaccine Aged Out No l onger eligible based on patient's age to complete [...] RETINA - OU - BOTH EYES Routine 05/25/2025 11:15 AM EDT Old retinal detachment, partial MR KNEE WO CONTRAST LEFT Routine 04/24/2025 3:55 PM EDT Chronic pain of left knee POCT GLYCATED HEMOGLOBIN, TOTAL Routine 03/16/2025 1:53 PM EDT Type 2 diabetes mellitus without complication, without long-term current use of insulin ([facility]) LIPID PANEL WITH REFLEX TO DIRECT LDL Routine 07/13/2024 3:15 PM EDT Type 2 diabetes mellitus without complication, without long-term current use of insulin ([facility]) Essential hypertension ALBUMIN, RANDOM URINE W/CREATININE Routine 07/13/2024 12:00 AM EDT Type 2 diabetes mellitus without complication, without long-term current use of insulin ([facility]) INTRAORAL - COMPLETE SERIES OF RADIOGRAPHIC IMAGES [...] Recently Relevant to Health Maintenance Results * OCT, Retina - OU - Both Eyes (05/25/2025 11:15 AM EDT) Aidee Freeman, OD - 06/01/2025 11:30 AM EDT OCT RETINA INTERPRETATION Optical Coherence Tomography Interpretation Report Reliability: OD: SS 57 - good quality scan OS: SS 63 - good quality scan Measurements: Central subfoveal thickness OD: 205 microns OS: 273 microns (inaccurate - fovea mapped incorrectly) Test findings: OD: Distorted foveal contour due to lamellar hole, all layers intact, no IRF/SRF. Stable OS: Normal foveal contour, loss of PIL nasal macula. Complete outer retinal atrophy inferior to macula with subretinal elevations. 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 No CNVM. Monitor. us Aidee Miller RUDDY OPHTH TOMOGRAPHY Final Result * MR Knee w/o Contrast Left (04/24/2025 3:55 PM EDT) Anatomical Region Laterality Modality Magnetic Resonan ce 04/24/2025 3:55 PM EDT Narrative 04/24/2025 3:57 PM EDT [address] [address] Magnetic Resonance Report Signed Patient: Kerline Gutierrez MR#: [id number] : 1965 Acct:[id number] Age/Sex: 59 / F ADM Date: 04/23/25 Loc: HO.MRI Attending Dr: Rosalba Kingsley MD Ordering Physician: Rosalba Shin MD Date of Service: 04/23/25 Procedure(s): MR knee LT wo con Accession Number(s): [id number] cc: Rosalba Shin MD CLINICAL HISTORY: acute on chronic pain and swelling MR left knee without gadolinium Comparison: None Findings: No fractures. No pathologic bone lesions. There is mild subchondral marrow edema within the weight-bearing aspects of the lateral femoral condyle and lateral tibial plateau. Subchondral microcyst formation within the lateral patellar facet. Lateral patellar subluxation. Severe articular cartilage loss overlying the weight-bearing aspects of the medial and lateral compartments. Articular cartilage fibrillation overlies the lateral patellar facet. Moderate knee joint effusion. Moderate Quintero's cyst. Small ganglion cyst along the popliteus. Anterior and posterior cruciate ligaments are intact. Collateral ligaments are intact. No disruption of the patellar retinacula or iliotibial band. No tears of the quadriceps, patellar, popliteus, or flexor tendons. Medial extrusion of the medial meniscus. Linear horizontal high T2 signal intensity traverses the inner, middle, and peripheral thirds of the medial meniscal body and posterior horn, demonstrating inferior articular surface extension, indicating horizontal tearing. There is amorphous and linear horizontal high T2 signal intensity within the inner, middle, and peripheral thirds of the anterior horn, body, and posterior horn lateral meniscus, demonstrating superior and inferior articular surface extension, indicating complex tearing. IMPRESSION: 1. Tricompartmental osteoarthritis with associated articular cartilage loss. 2. Medial and lateral meniscal tearing. 3. Knee joint effusion and Quintero's cyst. This document has been electronically signed by: Ara Fernandez MD on 04/24/2025 15:55:26 Dictated By: Ara Fernandez MD Signed By: <Electronically signed by Ara Fernandez MD in OV> 04/24/25 1556 DD/ 1555 TD/TT: 04/24/25 155 I[facility] Registered Nurse: Procedure Note Donotuseinterpreter, Image - 04/24/2025 [place] [address] Magnetic Resonance Report Signed Patient: Diana Gutierrez#: [id number] : 1965Acct:[id number] Age/Sex: 59 / FADM Date: 04/23/25 Loc: HO.MRI Attending Dr: Rosalba Kingsley MD Ordering Physician: Rosalba Shin MD Date of Service: 04/23/25 Procedure(s): MR knee LT wo con Accession Number(s): [id number] cc: Rosalba Shin MD CLINICAL HISTORY: acute on chronic pain and swelling MR left knee without gadolinium Comparison: None Findings: No fractures. No pathologic bone lesions. There is mild subchondral marrow edema within the weight-bearing aspects of the lateral femoral condyle and lateral tibial plateau. Subchondral microcyst formation within the lateral patellar facet. Lateral patellar subluxation. Severe articular cartilage loss overlying the weight-bearing aspects of the medial and lateral compartments. Articular cartilage fibrillation overlies the lateral patellar facet. Moderate knee joint effusion. Moderate Quintero's cyst. Small ganglion cyst along the popliteus. Anterior and posterior cruciate ligaments are intact. Collateral ligaments are intact. No disruption of the patellar retinacula or iliotibial band. No tears of the quadriceps, patellar, popliteus, or flexor tendons. Medial extrusion of the medial meniscus. Linear horizontal high T2 signal intensity traverses the inner, middle, and peripheral thirds of the medial meniscal body and posterior horn, demonstrating inferior articular surface extension, indicating horizontal tearing. There is amorphous and linear horizontal high T2 signal intensity within the inner, middle, and peripheral thirds of the anterior horn, body, and posterior horn lateral meniscus, demonstrating superior and inferior articular surface extension, indicating complex tearing. IMPRESSION: 1. Tricompartmental osteoarthritis with associated articular cartilage loss. 2. Medial and lateral meniscal tearing. 3. Knee joint effusion and Quintero's cyst. This document has been electronically signed by: Ara Fernandez MD on 04/24/2025 15:55:26 Dictated By: Ara Fernandez MD Signed By: <Electronically signed by Ara Fernandez MD in OV> 04/24/25 1556 DD/ 1555 TD/TT: 04/24/25 155 Icu Registered Nurse: Rosalba Kingsley MD IMG MRI PROCEDURES Ed ited Result - Final * POCT HGB A1C (03/16/2025 1:53 PM EDT) Hemoglobin A1C 5.0 4.0 - 6.0 % QC Media Lot # [id number] Lot# Expiration Date Blood 03/16/2025 1:53 PM EDT Rosalba Kingsley MD POINT OF CARE TEST EN TER/EDIT ORDERABLES Final Result * (ABNORMAL) Lipid Panel with Reflex to Direct LDL (07/13/2024 3:15 PM EDT) Triglycerides 135 <150 mg/dL [facility] Comment:Desirable Triglyceri de: less than 150 mg/dLBorderline High Triglyceride 150-199 mg/dLHigh Triglyceride: 200-499 mg/dLVery High Triglyceride: greater than or equal to 5OO mg/dL Cholesterol 220(H) <200 mg/dL [facility] Comment:Desirable Cholestero l: less than 200 mg/dLBorderline High Cholesterol: 200-239 mg/dLHigh Cholesterol: greater than 239 mg/dL LDL Cholesterol Calculated 134(H) <100 mg/dL [facility] Comment:Desirable LDL: less than 100 mg/dLNear Optimal/Above Optimal LDL: 110- 129 mg/dLBorderline High LDL: 130-159 mg/dLHigh LDL: 160-189 mg/dLVery High LDL: greater than or equal to 190 mg/dL HDL Cholesterol 59 >40 mg/dL [facility] Comment:Desirable HDL: great er than 40 mg/dL Note: This HDL assay may give artificially low results in patients with liver disease. Blood 07/13/2024 3:15 PM EDT 07/13/2024 4:04 PM EDT us Rosalba Kingsley MD LAB BLOOD ORDERABLES Final Result Performing Organization Address [facility] Co de Phone Number [facility] [address] [place] [phone] * Albumin, Random Urine W/Creatinine (07/13/2024 12:00 AM EDT) Creatinine, Urine 115.51 mg/dL [facility] Microalbumin Urine 28.0 mg/L [facility] Microalbum Creatinine Ratio Ur 24.2 <30 ug/mg cr [facility] Comment:Albumin/Creatinine R atio Reference Ranges: Normal: < 30 ug/mg creatinine Microalbuminuria: 30 - 300 ug/mg creatinineClinical Albuminuria: > 300 ug/mg creatinine Urine (Urine, Random) 07/13/2024 07/13/2024 us Rosalba Kingsley MD LAB URINE ORDERABLES Final Result Performing Organization Address [facility] Co de Phone Number [facility] [address] [place] [phone] * BI Mammogram Diagnostic Tomosynthesis Bilateral (02/12/2024 10:01 AM EDT) Anatomical Region Laterality Modality Breast Bilateral Mammography 02/12/2024 10:0 1 AM EDT Narrative 02/12/2024 12:05 PM EDT [facility] [address] [place] [address] Mammography Report Signed Patient: Kerline Gutierrez MR#: [id number] : 1965 Acct:[id number] Age/Sex: 58 / F ADM Date: 02/12/24 Loc: HO.MAMMO Attending Dr: Rosalba Kingsley MD Ordering Physician: Rosalba Shin MD Results: 2Benign Findings Date of Service: 02/12/24 Follow Up: 1 Year From Orig inal Mammogram Procedure(s): MM tomosynthesis diagnostic BI Accession Number(s): [id number] cc: Rosalba Shin MD EXAMINATION: MM DIAGNOSTIC [...] in OV> 02/12/24 1201 DD/ 1001 TD/TT: Icu Registered Nurse: Procedure Note Donotuseinterpreter, Image - 02/12/2024 [facility] [address] [place] [address] Mammography Report Signed Patient: Diana Gutierrez#: [id number] : 1965Acct:[id number] Age/Sex: 58 / FADM Date: 02/12/24 Loc: HO.MAMMO Attending Dr: Rosalba Kingsley MD Ordering Physician: Rosalba Shin MDResults: 2Benign Findings Date of Service: 02/12/24Follow Up: 1 Year From Orig inal Mammogram Procedure(s): MM tomosynthesis diagnostic BI Accession Number(s): [id number] cc: Rosalba Shin MD EXAMINATION: MM DIAGNOSTIC [...] in OV> 02/12/24 1201 DD/ 1001 TD/TT: Icu Registered Nurse: Rosalba Kingsley MD IMG BI PROCEDURES Arash jamaal Result - Final * Image-Guided Pap with Age-Based Screening??with CT/NG,??Trichomonas (09/22/2023 10:18 AM EST) Trichomonas (NAAT) NOT DETECTED NOT DETECTED [facility] Comment:The analytical perfo rmance characteristics of thisassay have been determined by [employer]. Themodifications have not been cleared or approved bythe FDA. This assay has been validated pursuant to theCLIA regulations and is used for clinical purposes.For additional information, please refer [email or web address](This link is being provided for information/educational purposes only.)THIS TEST WAS PERFORMED AT:[facility] [place] [address] [id number] GARCIA MD CTNG Ref Lab NOT DETECTED NOT DETECTED [facility] NG Ref Lab NOT DETECTED NOT DETECTED [facility] 09/22/2023 10:1 8 AM EST 09/23/2023 7:30 AM EST us Rosalba Kingsley MD LAB CYTOLOGY ORDERABL ES Final Result [facility] [address] [place] [phone] * HPV mRNA E6/E7 w/Reflex to HPV Genotypes 16, 18/45 (09/22/2023 10:18 AM EST) HPV nRNA E6/E7 Not Detected Not Detected [facility] Comment:Methodology: Transcr iption-Mediated AmplificationThis assay detects E6/E7 viral messenger RNA (mRNA) from 14high-risk HPV types (16,18,31,33,35,39,45,51,52,56,58,59,66,68).Cervical sources are required for HPV testing.If a vaginal source from a patient who has had atotal hysterectomy with removal of cervix wassubmitted, please contact the testing laboratoryfor alternative testing options.For additional information, please refer [email or web address]! [email or web address](This link if provided for information/educational purposes only.)THIS TEST WAS PERFORMED AT:[facility] [place] [id number] GARCIA MD HPV mRNA E6/E7 [facility] HPV 16 RNA [facility] HPV 18/45 RNA [facility] 09/22/2023 10:1 8 AM EST 09/23/2023 7:30 AM EST Rosalba Kingsley MD LAB CYTOLOGY ORDERABL ES Final Result [facility] [address] [place] [address] [phone] * Colonoscopy (06/01/2018) Colonoscopy Normal Normal Narrative Aditi Durand - 06/01/2018 Recommended 10 year follow up Historical Provider HEALTH MAINTENANCE Final Result from Last 3 Months or Most Recently Relevant to Health Maintenance Insurance [employer] [facility] [facility] AD[place] Care Teams 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
--- OUTSIDE RECORDS SUMMARY | 2025-07-25 09:28 | XMS_ITS | Encounter Summary ---
Author Organization [email or web address] Address [address] [facility] 7t [place] [address] Care Team Providers Care Shampoo Assistant Name Role Phone Rosalba Shin MD Primary Care Provide r Reason for Visit * Reason Comments Med Refill Encounter Details Date Type Department Care Team (Late Contact Info) Description 03/17/2023 Refill [facility] MED[facility]INE [address] [place] [address] [phone] Rosalba Shin MD [address] [place] [address] [phone] Primary insomnia Social History Tobacco Use Types [...] 08/09/2025 11:15 AM EDT Telemedicine [facility] [address] [place] [address] [phone] Rosalba Shin MD [address] [place] [address] [phone] documented as of this encounter Visit Diagnoses Diagnosis Primary insomnia Persistent disorder of initiating or maintaining sleep documented in this encounter Care Teams Shampoo Assistant Relationship Specialty Start Date End Date Rosalba Shin MD [address] [place] [address] PCP - General Family Medicine 12/26/20 documented as of this encounter
--- OUTSIDE RECORDS SUMMARY | 2025-07-25 09:28 | XMS_ITS | Encounter Summary ---
Author Organization [employer] Address 75 [facility] 7t [place] [address] Care Team Providers Care Accounts Receivable Specialist Name Role Phone Rosalba Shin MD Primary Care Provide r Reason for Visit * Reason Comments Med Refill Encounter Details Date Type Department Care Team ([facility] st Contact Info) Description 06/08/2024 Refill [facility] [address] [place], [place] [phone] Rosalba Shin MD [address] [place] [address] Fibromyalgia Social History Tobacco Use Types Packs/Day [...] 08/09/2025 11:15 AM EDT Telemedicine [facility] [address] [place] [address] Rosalba Shin MD [address] [place] [address] documented as of this encounter Visit Diagnoses Diagnosis Fibromyalgia Unspecified myalgia and myositis documented in this encounter Additional Health Concerns Assessment Noted Time PHQ-9 Depression Total Score: 7 04/06/20 23 2:10 PM EDT documented as of this encounter Care Teams Accounts Receivable Specialist Relationship Specialty Start Date End Date Rosalba Shin MD [address] [place] [address] PCP - General Family Medicine 12/26/20 documented as of this encounter
--- OUTSIDE RECORDS SUMMARY | 2025-07-25 09:28 | XMS_ITS | Encounter Summary ---
Author Organization [employer] Address [address] [facility] 7t [place] [address] Care Team Providers Care Center Administrator Name Role Phone Rosalba Shin MD Primary Care Provide r Reason for Visit * Reason Comments Med Refill Encounter Details Date Type Department Care Team (Late st Contact Info) Description 12/02/2024 Refill [facility] [address] [place], [place] [phone] Ofelia Wright, ANP [address] [place] [address] Type 2 diabetes mellitus without complication, without long-term current use of insulin ([facility]) Social History Tobacco Use Types Packs/Day Years [...] Info) Description 08/09/2025 11:15 AM EDT Telemedicine [facility] MEDICINE [address] [place] [address] Rosalba Shin MD [address] [place] [address] documented as of this encounter Visit Diagnoses Diagnosis Type 2 diabetes mellitus without complication, without long-term current use of insulin ([facility]) documented in this encounter Additional Health Concerns Assessment Noted Time PHQ-9 Depression Total Score: 0 08/12/20 24 11:42 AM EDT documented as of this encounter Care Teams Center Administrator Relationship Specialty Start Date End Date Rosalba Shin MD [address] [place] [address] PCP - General Family Medicine 12/26/20 documented as of this encounter
--- OUTSIDE RECORDS SUMMARY | 2025-07-25 09:28 | XMS_ITS | Clinical Summary ---
Author Organization [facility] Address [address] [place] [address] Care Team Providers Care Prize Coordinator Name Role Phone Unavailable Primary Care Provider [...] of 2) 2016 COVID-19 Vaccine (1 - season) 2025
--- OUTSIDE RECORDS SUMMARY | 2025-07-25 09:28 | XMS_ITS | Encounter Summary ---
Author Organization [employer] Address [address] [facility] 7t [place] [address] Care Team Providers Care Physical Chemist Name Role Phone Rosalba Shin MD Primary Care Provide r Reason for Visit * Reason Comments Med Refill Encounter Details Date Type Department Care Team ([facility] st Contact Info) Description 07/24/2025 Refill [facility] MED[facility]INE [address] [place], [place] [phone] Rosalba Shin MD [address] [place] [address] Fibromyalgia Social History Tobacco Use Types Packs/Day [...] Info) Description 08/09/2025 11:15 AM EDT Telemedicine [facility] MEDICINE [address] [place] [address] Rosalba Shin MD [address] [place] [address] documented as of this encounter Visit Diagnoses Diagnosis Fibromyalgia Unspecified myalgia and myositis documented in this encounter Additional Health Concerns Assessment Noted Time PHQ-9 Depression Total Score: 0 08/12/20 24 11:42 AM EDT documented as of this encounter Care Teams Physical Chemist Relationship Specialty Start Date End Date Rosalba Shin MD [address] [place] [address] PCP - General Family Medicine 12/26/20 documented as of this encounter
== END 2025-07-25 09:01 | disposition home or self-care (01) ==
LOC: HO.HCS 08:27
PROVIDERS: PCP Internal Medicine; Visit Provider Internal Medicine
DX: R07.2 Precordial pain (principal); R06.02 Shortness of breath
CPT/HCPCS: 99214

== ENCOUNTER → 2025-07-25 08:27 | Outpatient (BNVA) | payer MEDICAID, SELFPAY | PROVIDERS: PCP Internal Medicine; Visit Provider Internal Medicine | DX: R07.2 Precordial pain (principal); R06.02 Shortness of breath; Z79.82 Long term (current) use of aspirin | CPT/HCPCS: 99212 ==

== ENCOUNTER 2025-08-17 11:34 | Outpatient (AMB) | payer MEDICAID, SELFPAY ==
--- NOTE | 2025-08-17 11:46 | A.OFFVIS_ITS ---
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 The patient states that her pain has gotten somewhat worse over the last few years. She has tried wearing a knee brace which gives her mild relief. She has not been to physical therapy. She wishes to hold off on surgery if at all possible. Program Proposals Coordinator Required: Yes Program Proposals Coordinator Language: Assembler [employer] Services: Program Proposals Coordinator Present (ipad) Program Proposals Coordinator Name: [id number] Allergies No Known Allergies (No Known Allergies*) Allergy (Verified 08/17/25 11:49) Medication List - Last Reconciled 08/17/25 by Ernst Gupta MD acetaminophen 500 mg PO Q6H PRN albuterol sulfate 90 mcg/actuation (Ventolin HFA) 2 puffs inhalation Q6H PRN aspirin 81 mg PO DAILY baclofen 10 mg PO DAILY benzonatate 200 mg PO BID PRN cholecalciferol (vitamin D3) (Vitamin D3) 50 mcg PO QAM cyclobenzaprine 5 mg PO Q8H PRN dextran 70-hypromellose 0.1-0.3 % (Lubricating Tears) 1 drp ophthalmic (eye) TID PRN diclofenac sodium 1% 2 grams topical QID doxycycline hyclate 100 mg PO BID 7 days ferrous sulfate (FeroSul) 325 mg PO BID fluticasone furoate-vilanterol 200-25 mcg/dose (Breo Ellipta) 1 inh inhalation DAILY hydrochlorothiazide 25 mg PO DAILY ketorolac 10 mg PO QID PRN levothyroxine 200 mcg PO DAILY levothyroxine 25 mcg PO QAM lidocaine 5% 0 patches topical lisinopril 5 mg PO QAM loratadine 10 mg PO DAILY PRN methocarbamol 1,500 mg (2 x 750 mg) PO Q8H PRN naproxen 500 mg PO BEDTIME paroxetine HCl 20 mg PO DAILY rosuvastatin 10 mg PO BEDTIME sennosides (senna) 8.6 mg PO PRN sodium chloride 0.65% (Deep Sea Nasal) 2 sprays intranasal tramadol 50 mg PO Q6H PRN triamcinolone acetonide 0.1% appl topical triamcinolone acetonide 0.1% topical BID venlafaxine ER 37.5 mg PO QAM zolpidem 10 mg PO BEDTIME PRN PFSH Medical History (Updated 08/17/25 @ 12:33 by Ernst Gupta MD) Breast pain Fibromyalgia Anxiety and depression Bilateral carpal tunnel syndrome Type 2 diabetes mellitus Essential hypertension Sjogren's syndrome Rheumatoid arthritis involving multiple sites with positive rheumatoid factor Acquired hypothyroidism Cervical radiculopathy Lumbar radiculopathy Asthma Surgical History H/O gastric bypass Hx of cataract extraction No history of previous surgery Family History Mother Arthritis Father No problems noted. Other Medical history unknown Social History Household Members: None Alcohol intake: never Patient Tobacco Use Status: Never used Tobacco Current occupational status: disabled Physical Exam Vital Signs: BMI result Body Mass Index 35.8 Const Other: Well-nourished well-developed very friendly female awake alert and oriented x3 in no acute distress Extrem Other: Left knee examination shows a minimal effusion, mild crepitus with range of motion, tenderness along her medial and lateral joint lines, positive Orlando's test, no instability Results Reviewed Results Reviewed: MRI of the patient's left knee shows mild to moderate diffuse degenerative changes as well as tearing of the medial and lateral menisci, no acute bony abnormalities Assessment & Plan Assessment & Plan (1) Left knee pain: Code(s): M25.562 - Pain in left knee Category: Medical Plan Ms. Gutierrez presents with left knee pain due to early degenerative joint disease as well as tearing of her medial and lateral menisci. I had a lengthy discussion with the patient regarding the treatment options. We will hold off on an injection or surgery for now. I did give her a prescription to go to formal physical therapy here at [facility]. She will continue with her activity modifications. She will contact me prior to her follow-up appointment in 3 months should any questions or concerns arise. Feel free to call me at any time should questions regarding her orthopedic management arise. I spent 20 minutes in reviewing the patient's records and imaging studies, seeing the patient and documenting in the medical record. Orders: Orders PT Evaluation and Treatment 10/03/25 M25.562 - Pain in left knee Coding Level of Care Code New Pt Level 3 (76410) Complex EM visit Add On G2211 Diagnoses Left knee pain M25.562
[2025-08-17 11:52] VITALS: BMI 35.8
--- OUTSIDE RECORDS SUMMARY | 2025-08-17 13:25 | XMS_ITS | Encounter Summary ---
Author Organization [employer] Address [address] [facility] 7t [place] [address] Care Team Providers Care Rubber Goods Cutter Finisher Name Role Phone Rosalba Shin MD Primary Care Provide r Reason for Visit * Reason Comments Med Refill Encounter Details Date Type Department Care Team (Late st Contact Info) Description 12/02/2024 Refill [facility] MEDICINE [address] [place], [place] [phone] Ofelia Wright, ANP [address] [place] [address] Type 2 diabetes mellitus without complication, without long-term current use of insulin ([facility]) Social History Tobacco Use [...] Care Team (Late st Contact Info) Description 08/30/2025 9:30 AM EDT Clinical Support [facility] [address] [place] [address] Jeannette Thomas, KARLENE documented as of this encounter Visit Diagnoses Diagnosis Type 2 diabetes mellitus without complication, without long-term current use of insulin (HCC) documented in this encounter Additional Health Concerns Assessment Noted Time PHQ-9 Depression Total Score: 0 08/12/20 24 11:42 AM EDT documented as of this encounter Care Teams Rubber Goods Cutter Finisher Relationship Specialty Start Date End Date Rosalba Shin MD [address] [place] [address] PCP - General Family Medicine 12/26/20 documented as of this encounter
--- OUTSIDE RECORDS SUMMARY | 2025-08-17 13:25 | XMS_ITS | Clinical Summary ---
Author Organization [facility] Address [address] [place] [address] Care Team Providers Care Front Desk Person Name Role Phone Unavailable Primary Care Provider [...]
--- OUTSIDE RECORDS SUMMARY | 2025-08-17 13:25 | XMS_ITS | Encounter Summary ---
Author Organization [employer] Address [address] [facility] 7t [place] [address] Care Team Providers Care Automatic I Threading Machine Feeder Name Role Phone Rosalba Shin MD Primary Care Provide r Reason for Visit * Reason Comments Med Refill Encounter Details Date Type Department Care Team ([facility] st Contact Info) Description 03/16/2025 Refill [facility] MEDICINE [address] [place] [address] Rosalba Shin MD [address] [place] [address] Fibromyalgia; Primary insomnia; Rash; Essential hypertension; Other [...] Description 08/30/2025 9:30 AM EDT Clinical Support [facility] [address] [place] [address] Jeannette Thomas RN documented as of this [...] documented as of this encounter Care Teams Automatic I Threading Machine Feeder Relationship Specialty Start Date End Date Rosalba Shin MD [address] [place] [address] PCP - General Family Medicine 12/26/20 documented as of this encounter
--- OUTSIDE RECORDS SUMMARY | 2025-08-17 13:25 | XMS_ITS | Encounter Summary ---
Author Organization [employer] Address [address] [facility] 7t [place] [address] Care Team Providers Care Gallery Manager Name Role Phone Rosalba Shin MD Primary Care Provide r Reason for Visit * Reason Comments Med Refill Encounter Details Date Type Department Care Team ([facility] Contact Info) Description 03/17/2023 Refill [facility] MEDICINE [address] [place] [phone] Rosalba Shin MD [address] [place] [phone] Primary insomnia Social History Tobacco Use Types [...] Description 08/30/2025 9:30 AM EDT Clinical Support [facility] MEDICINE [address] [place] [phone] Jeannette Thomas RN documented as of this encounter Visit Diagnoses Diagnosis Primary insomnia Persistent disorder of initiating or maintaining sleep documented in this encounter Care Teams Gallery Manager Relationship Specialty Start Date End Date Rosalba Shin MD [address] [place] [address] PCP - General Family Medicine 12/26/20 documented as of this encounter
--- OUTSIDE RECORDS SUMMARY | 2025-08-17 13:25 | XMS_ITS | Encounter Summary ---
Author Organization [employer] Address [address] [facility] 7t [place] [address] Care Team Providers Care Chicken And Fish Cleaner Name Role Phone Rosalba Shin MD Primary Care Provide r Reason for Visit * Reason Comments Med Refill Encounter Details Date Type Department Care Team (Late st Contact Info) Description 12/02/2024 Refill [facility] [address] [place], [place] [phone] Name, MD Gino [address] [place] [address] Social History Tobacco Use Types Packs/Day Years [...] 9:30 AM EDT Clinical Support [facility] MEDICINE [address] [place] [address] Jeannette Thomas, KARLENE documented as of this encounter Visit Diagnoses Not on filedocumented in this encounter Additional Health Concerns Assessment Noted Time PHQ-9 Depression Total Score: 0 08/12/20 24 11:42 AM EDT documented as of this encounter Care Teams Chicken And Fish Cleaner Relationship Specialty Start Date End Date Rosalba Shin MD [address] [place] [address] PCP - General Family Medicine 12/26/20 documented as of this encounter
--- OUTSIDE RECORDS SUMMARY | 2025-08-17 13:25 | XMS_ITS | Encounter Summary ---
Author Organization [employer] Address 75 [facility] 7t [place] [address] Care Team Providers Care Instructor Of Sociology Name Role Phone Rosalba Shin MD Primary Care Provide r Encounter Details Date Type Department Care Team ([facility] st Contact Info) Description 08/26/2023 Abstract [facility] MEDICINE [address] [place], [place] [phone] Rosalba Shin MD [address] [place], [place] [phone] Social History Tobacco Use Types Packs/Day Years [...] t he electric, gas, oil or water [employer] threatened to shut off services in your [...] Description 08/30/2025 9:30 AM EDT Clinical Support [facility] MEDICINE [address] [place] [address] Jeannette Thomas RN documented as of this encounter Procedures Procedure Name Priority Date/Time Associated Diagnosis Comments COLONOSCOPY Routine 06/01/2018 documented in this encounter Results * Colonoscopy (06/01/2018) Colonoscopy Normal Normal Narrative Charly Durandba - 06/01/2018 Recommended 10 year follow up us Historical Provider HEALTH MAINTENANCE Final Result documented in this encounter Visit Diagnoses Not on filedocumented in this encounter Additional Health Concerns Assessment Noted Time PHQ-9 Depression Total Score: 7 04/06/20 23 2:10 PM EDT documented as of this encounter Care Teams Instructor Of Sociology Relationship Specialty Start Date End Date Rosalba Shin MD [address] [place] [address] PCP - General Family Medicine 12/26/20 documented as of this encounter
--- OUTSIDE RECORDS SUMMARY | 2025-08-17 13:25 | XMS_ITS | Encounter Summary ---
Author Organization [employer] Address [address] [facility] 7t [place] [address] Care Team Providers Care Software Client Architect Name Role Phone Rosalba Shin MD Primary Care Provide r Reason for Visit * Reason Comments Med Refill Encounter Details Date Type Department Care Team ([facility] st Contact Info) Description 04/03/2025 Refill [facility] MEDICINE [address] [place], [place] [phone] Rosalba Shin MD [address] [place] [address] Fibromyalgia Social History Tobacco Use Types Packs/Day [...] Description 08/30/2025 9:30 AM EDT Clinical Support [facility] MEDICINE [address] [place] [address] Jeannette Thomas, KARLENE documented as of this encounter Visit Diagnoses Diagnosis Fibromyalgia Unspecified myalgia and myositis documented in this encounter Additional Health Concerns Assessment Noted Time PHQ-9 Depression Total Score: 0 08/12/20 24 11:42 AM EDT documented as of this encounter Care Teams Software Client Architect Relationship Specialty Start Date End Date Rosalba Shin MD [address] [place] [address] PCP - General Family Medicine 12/26/20 documented as of this encounter
--- OUTSIDE RECORDS SUMMARY | 2025-08-17 13:25 | XMS_ITS | Encounter Summary ---
Author Organization [employer] Address [address] [place] [address] 7[address] [place] [address] Care Team Providers Care Salesperson Fashion Accessories Name Role Phone Rosalba Shin MD Primary Care Provide r Reason for Visit * Reason Comments Med Refill Encounter Details Date Type Department Care Team (Late st Contact Info) Description 03/10/2023 Refill [facility] [address] [place] [phone] Name, MD Gino [address] [place] [phone] Chronic low back pain, unspecified back pain [...] Description 08/30/2025 9:30 AM EDT Clinical Support [facility] [address] [place] [phone] Jeannette Thomas RN documented as of this encounter Visit Diagnoses Diagnosis Chronic low back pain, unspecified back pain laterality, unspecified whether sciatica present documented in this encounter Care Teams Salesperson Fashion Accessories Relationship Specialty Start Date End Date Rosalba Shin MD [address] [place] [address] PCP - General Family Medicine 12/26/20 documented as of this encounter
--- OUTSIDE RECORDS SUMMARY | 2025-08-17 13:25 | XMS_ITS | Encounter Summary ---
Author Organization [employer] Address [address] [facility] 7t [place] [address] Care Team Providers Care Filament Shaper Name Role Phone Rosalba Shin MD Primary Care Provide r Reason for Visit * Reason Comments Med Refill Encounter Details Date Type Department Care Team ([facility] st Contact Info) Description 06/08/2024 Refill [facility] [address] [place], [place] [phone] Rosalba Shin MD [address] [place] [address] Fibromyalgia Social History Tobacco Use Types Packs/Day [...] Description 08/30/2025 9:30 AM EDT Clinical Support [facility] [address] [place] [address] Jeannette Thomas RN documented as of this encounter Visit Diagnoses Diagnosis Fibromyalgia Unspecified myalgia and myositis documented in this encounter Additional Health Concerns Assessment Noted Time PHQ-9 Depression Total Score: 7 04/06/20 23 2:10 PM EDT documented as of this encounter Care Teams Filament Shaper Relationship Specialty Start Date End Date Rosalba Shin MD [address] [place] [address] PCP - General Family Medicine 12/26/20 documented as of this encounter
--- OUTSIDE RECORDS SUMMARY | 2025-08-17 13:25 | XMS_ITS | Encounter Summary ---
Author Organization [employer] Address [address] [facility] 7t [place] [address] Care Team Providers Care Jira Administrator Name Role Phone Rosalba Shin MD Primary Care Provide r Reason for Visit * Reason Comments Med Refill Encounter Details Date Type Department Care Team (Late st Contact Info) Description 10/22/2023 Refill [facility] [address] [place] [address] Maria L Navarro MD [address] [place] [address] Chronic low back pain, unspecified back pain [...] 08/30/2025 9:30 AM EDT Clinical Support [facility] [address] [place] [address] Jeannette Thomas RN documented as of this encounter Visit Diagnoses Diagnosis Chronic low back pain, unspecified back pain laterality, unspecified whether sciatica present documented in this encounter Additional Health Concerns Assessment Noted Time PHQ-9 Depression Total Score: 7 04/06/20 23 2:10 PM EDT documented as of this encounter Care Teams Jira Administrator Relationship Specialty Start Date End Date Rosalba Shin MD [address] [place] [address] PCP - General Family Medicine 12/26/20 documented as of this encounter
--- OUTSIDE RECORDS SUMMARY | 2025-08-17 13:25 | XMS_ITS | Clinical Summary ---
Author Organization [employer] Address [address] [facility] 7t [place] [address] Care Team Providers Care Crester Name Role Phone Rosalba Shin MD Primary [...] buttocks. 03/16/20 20 Active Deep Sea Nasal Warren 0.65 % nasal sprayIndication s:Viral pharyngitis SPRAY [...] without long-term current use of insulin (HCC) 1 each 2 times daily. 1 kit 09/07/20 Active Lancets miscIndications :Type 2 diabetes mellitus without complication, without long-term current use of insulin ([facility]) 1 each 2 times daily. 100 each 2 09/07/20 Active Blood Pressure Monitor kitIndications: Essential hypertension Use as directed 3x/week 1 kit 09/07/20 Active FREESTYLE LITE test stripIndication s:Type 2 diabetes mellitus without complication, without long-term current use of insulin ([facility]) USE DIRECTED TO TEST BLOOD SUGAR TWICE DAILY 100 strip 11 05/30/20 24 Active lisinopril 10 MG tabletIndicatio ns:Hypertension , unspecified type Take 1 tablet (10 mg) by mouth in the morning. 30 tablet 11 07/13/20 24 Active TRUEplus Lancets 33G miscIndications :Type 2 diabetes mellitus without complication, without long-term current use of insulin ([facility]) USE TO TEST BLOOD SUGAR TWICE DAILY 100 each 1 07/21/20 24 Active rosuvastatin (Crestor) 20 MG tabletIndicatio ns:Type 2 diabetes mellitus without complication, without long-term current use of insulin ([facility]) Take 1 tablet (20 mg) by mouth Once per day. 30 tablet 08/12/20 24 Active naloxone (Narcan) 4 mg/0.1 mL nasal [...] complication, without long-term current use of insulin ([facility]) 1 each 2 times daily. 100 [...] USING. 13 g 2 12/07/19 25 Active betamethasone, augmented, (Diprolene) 0.05 % [...] spasms. 30 tablet 04/01/20 25 2025 Active venlafaxine XR (Effexor XR) 37.5 MG 24 hr capsuleIndicati ons:Hot flashes due to menopause TAKE 1 CAPSULE TWICE DAILY. DO NOT BREAK, CRUSH, DISSOLVE OR CHEW 60 capsule 2 05/12/20 25 Active loratadine (Claritin) 10 MG tabletIndicatio ns:Dermatitis,P ruritus of both eyes TAKE 1 TABLET BY MOUTH EVERY DAY NEEDED 90 tablet 3 06/08/20 25 Active cholecalciferol (D3 Super Strength) 50 MCG (2000 UT) capsule TAKE 1 CAPSULE BY MOUTH EVERY DAY IN THE MORNING 90 capsule 3 06/08/20 25 Active polyvinyl alcohol (Liquifilm Tears) 1.4 % ophthalmic solutionIndicat ions:Dry eye syndrome of unspecified lacrimal gland PLACE 1 DROP IN EACH EYE THREE TIMES DAILY IN THE MORNING, AT NOON, AND AT BEDTIME NEEDED FOR DRY EYES 30 mL 1 06/08/20 25 Active levothyroxine (Synthroid, Levoxyl) 200 MCG tabletIndicatio ns:Hypothyroidi sm, unspecified type TAKE 1 TABLET BY MOUTH ONCE DAILY 90 tablet 1 06/08/20 25 Active levothyroxine (Synthroid, Levoxyl) 25 MCG tabletIndicatio ns:Hypothyroidi sm, unspecified type TAKE 1 TABLET BY MOUTH EVERY MORNING 90 tablet 1 06/08/20 25 Active Ferrous Sulfate (iron) 325 [...] AREA(S) FOUR TIMES DAILY DIRECTED 100 g 07/10/20 25 Active hydroCHLOROthia zide (HYDRODiuril) 25 MG tabletIndicatio ns:Essential hypertension TAKE 1 TABLET BY MOUTH EVERY MORNING 90 tablet 1 07/10/20 25 Active baclofen (Lioresal) 10 MG tablet Take 1 tablet (10 mg) by mouth 3 times daily for 10 days. 30 tablet 07/24/20 25 Active naproxen (Naprosyn) 500 MG tablet Take 1 tablet (500 mg) by mouth 2 times daily. 60 tablet 07/24/20 25 2024 Active acetaminophen (Tylenol 8 Hour) 650 MG ER tabletIndicatio ns:Fibromyalgia TAKE 2 TABLETS BY MOUTH EVERY 8 HOURS NEEDED FOR MILD PAIN DO NOT BREAK, CRUSH, DISSOLVE OR CHEW 40 tablet 2 07/25/20 25 Active Fluocinolone Acetonide Scalp 0.01 % oilIndications: Folliculitis APPLY TO THE AFFECTED AREA(S) 3 TIMES PER WEEK AT NIGHT WITH COVER ON HEAD, DECREASE TO 3 TIMES PER MONTH UNTIL SYMPTOMS IMPROVE 118.28 mL 1 07/26/20 25 Active lidocaine (Lidoderm) 5 % patchIndication s:Chronic low back pain, unspecified back pain laterality, unspecified whether sciatica present APPLY 1 PATCH TOPICALLY TO SKIN, LEAVE ON FOR 12 HOURS AND OFF FOR 12 HOURS DIRECTED 30 patch 1 07/26/20 25 Active traMADol (Ultram) 50 MG tabletIndicatio ns:Rheumatoid arthritis involving multiple sites with positive rheumatoid factor (CMS/HCC) (HCC) Take 1 tablet (50 mg) by mouth every 8 (eight) hours if needed for severe pain for up to 28 days. 84 tablet 08/09/20 25 2024 Active zolpidem (Ambien) 10 MG tabletIndicatio ns:Primary insomnia Take 1 tablet (10 mg) by mouth if needed at bedtime for sleep. 28 tablet 08/09/20 25 2024 Active acetaminophen (Tylenol 8 Hour) 650 MG ER tabletIndicatio ns:Fibromyalgia Take 2 tablets (1,300 mg) by mouth every 8 (eight) hours if needed for mild pain. Do not crush, chew, or split. 40 tablet 2 03/16/20 25 2024 Discontinued gabapentin (Neurontin) 300 MG capsuleIndicati ons:Fibromyalgi a Take 1 capsule (300 mg) by mouth 3 times daily. 90 capsule 2 04/20/20 25 2024 Discontinued Fluocinolone Acetonide Scalp 0.01 % oilIndications: Folliculitis APPLY TOPICALLY TO THE AFFECTED AREA(S) 3 TIMES A WEEK AT NIGHT WITH COVER ON HEAD, ONCE SYMPTOMS IMPROVE USE 3 TIMES PER MONTH 118.28 mL 1 05/12/20 25 2024 Discontinued lidocaine (Lidoderm) 5 % patchIndication s:Chronic low back pain, unspecified back pain laterality, unspecified whether sciatica present APPLY 1 PATCH TOPICALLY TO SKIN, LEAVE ON FOR 12 HOURS AND OFF FOR 12 HOURS DIRECTED 30 patch 1 05/25/20 25 2024 Discontinued baclofen (Lioresal) 10 MG tablet Take 1 tablet (10 mg) by mouth 3 times daily for 10 days. 30 tablet 07/11/20 25 2024 Discontinued(R eorder (will not trigger notification to Pharmacy)) gabapentin (Neurontin) 300 MG capsuleIndicati ons:Fibromyalgi a TAKE 1 CAPSULE BY MOUTH THREE TIMES DAILY 90 capsule 2 07/26/20 25 2024 Discontinued Active Problems Problem Noted Date Diagnosed Date Primary insomnia 08/09/2025 Assessment & Plan (08/09/2025 12:25 PM EDT): I will refill her zolpidem 10 mg at bedtime Shortness of breath 08/09/2025 Assessment & Plan (08/09/2025 12:26 PM EDT): Continue to follow with cardiology do not miss any appointments Acute torticollis 03/27/2025 Alcohol intoxication 03/27/2025 Chronic [...] Pathologic myopia, 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 Dry eye 11/08/2024 Hypokalemia 08/12/2024 Assessment & Plan (08/12/2024 1:58 PM EDT): BMP ordered for f/u Severe dental caries 07/27/2024 Dental abscess 07/27/2024 Bronchitis 07/04/2024 Lipoma of breast 02/15/2024 Lipoma 02/09/2024 Breast nodule 02/09/2024 Atopic dermatitis of scalp 02/09/2024 Encounter for Papanicolaou s mear for cervical cancer screening 09/22/2023 Pain in toe 09/22/2023 Hot flashes due to menopause 08/11/2023 Assessment & Plan (02/09/2024 10:29 AM EDT): Increase venlafaxine to twice a day Dermatitis 08/11/2023 Fibromyalgia 04/06/2023 Assessment & Plan (08/09/2025 12:26 PM EDT): Counseling done I discontinue her gabapentin continue with muscle relaxers as needed and tramadol I put prescription in today [employer]ISTANT [employer] appointment to be rescheduled Assessment & Plan (04/20/2025 3:56 PM EDT): [...] ng multiple sites with positive rheumatoid factor ([facility]) 12/19/2015 Assessment & Plan (08/09/2025 12:27 PM EDT): Patient has upcoming appointment with rheumatology I advised not to miss it I will put in a prescription for tramadol, [employer] appointment to be rescheduled Assessment & Plan (04/20/2025 3:57 PM EDT): [...] 12/19/2015 Essential hypertension 12/19/2015 Assessment & Plan (08/09/2025 12:36 PM EDT): Stable continue with low-sodium diet and medication regimen Assessment & Plan (03/16/2025 2:38 PM EDT): [...] Problem Noted Date Diagnosed Date Resolved Date Moderate asthma 08/12/2024 08/09/2025 Assessment & Plan (11/08/2024 2:03 PM EST): I will refer her to pulmonology C/w same medication regimen Assessment & Plan (08/12/2024 1:57 PM EDT): C/w albuterol PRN I added today asmanex inhaler Mild intermittent asthma with exacerbation 07/04/2024 08/09/2025 Pruritus of both eyes 08/11/20232024 Pain in eye 11/12/2022 11/25/2024 Mild intermittent asthma 12/19/2015 Encounters Date Type Department Care Team Description 08/09/2025 11:15 AM EDT Telemedicine [facility] MEDICINE [address] [place] [phone] Rosalba Shin MD Essential hypertension (Primary Dx); Rheumatoid arthritis involving multiple sites with positive rheumatoid factor ([facility]); Primary insomnia; Fibromyalgia; Shortness of breath 08/09/2025 Telephone [facility] [address] [place] [phone] Jeannette Thomas RN Schedule [employer] Renewal appt 08/09/2025 Travel 08/08/2025 Telephone [facility] MED[facility] [address] [place] [phone] Rosalba Shin MD 07/26/2025 Refill [facility] [address] [place] [phone] Rosalba Shin MD Folliculitis; Fibromyalgia; Chronic low back pain, unspecified back pain laterality, unspecified whether sciatica present 07/24/2025 2:00 PM EDT Office Visit [facility] [address] [place] [phone] Anna Mata FNP Costochondritis (Primary Dx) 07/24/2025 Refill [facility] [address] [place] [phone] Rosalba Shin MD Fibromyalgia 07/24/2025 Travel 07/11/2025 2:40 PM EDT Office Visit [facility] [address] [place] [phone] Gino Browning MD Acute strain of neck muscle, initial encounter (Primary Dx); Acute neck pain 07/11/2025 Travel 07/10/2025 Refill [facility] [address] [place] [phone] Rosalba Shin MD Essential hypertension 07/09/2025 Refill [facility] [address] [place] [address] Rosalba Shin MD Chronic low back pain, unspecified back pain laterality, unspecified whether sciatica present; Essential hypertension 07/05/2025 9:15 AM EDT Office Visit [facility] [address] [place] [address] Lucretia Francisco, OD Presbyopia (Primary Dx) 07/05/2025 Travel 07/04/2025 Telephone [facility] [address] [place] [address] Rosalba Shin MD telephone call; Needs to schedule [employer] RV appt 07/03/2025 Refill [facility] [address] [place] [address] Rosalba Shin MD Primary insomnia; Fibromyalgia 06/07/2025 Refill [facility] [address] [place] [phone] Rosalba Shin MD Dermatitis; Pruritus of both eyes; Dry eye syndrome of unspecified lacrimal gland; Hypothyroidism, unspecified type; Iron deficiency anemia, unspecified iron deficiency anemia type 05/25/2025 11:15 AM EDT Office Visit [facility] [address] [place] [phone] Aidee Miller, OD Old retinal detachment, partial (Primary Dx); Lamellar macular hole of right eye; Presbyopia; Type 2 diabetes mellitus without ophthalmic manifestations ([facility]) 05/25/2025 Refill [facility] [address] [place] [address] Rosalba Shin MD Chronic low back pain, unspecified back pain laterality, unspecified whether sciatica present 05/25/2025 Travel 05/24/2025 Refill [facility] [address] [place] [address] Rosalba Shin MD Fibromyalgia (Primary Dx) 05/24/2025 Refill [facility] [address] [place] [address] Rosalba Shin MD Chronic low back pain, unspecified back pain laterality, unspecified whether sciatica present; Primary insomnia from Last 3 Months Immunizations Immunization Administration [...] Date Recorded Patient Health Questionnaire-9 Score 0 08/09/2025 Patient Health Questionnaire-9 Score 0 08/09/2025 Last PHQ-9: Questionnaire Data Not on file 0 08/09/2025 Housing Stability Answer Date Recorded What is your housing situation today? I have sailaja sing 06/20/[address] you li [...] Date Recorded Patient Health Questionnaire-2 Score 0 08/09/2025 Internet Access Answer Date Recorded Internet Access [...] Description 08/30/2025 9:30 AM EDT Clinical Support [facility] [address] [place] [phone] Jeannette Thomas, RN Health Maintenance Due Date [...] 2025 , 08/13/2023, 08/28/2022, Additional history exists Diabetes: Hemoglobin A1C 09/16/2025 025, 07/04/2024, 02/09/2024, Additional history exists SDOH Screening 03/09/2026 03/09/2025 Disability Screening 03/24/2026 03/24/2025 Tobacco Screening 07/11/2026 07/11/2025 Alcohol/Substance Use Screening 08/09/2026 08/09/2025 Depression Screening 08/09/2026 08/09/2025, 08/09/20 Dental X-Ray: Full Mouth 03/05/2027 03/04/2024 Eye Exam 05/25/2027 05/25/2025, 07, 05/25/2025, Additional history exists Colonoscopy 06/01/2028 06/01/2018 [...] 11:15 AM EDT Old retinal detachment, partial POCT GLYCATED HEMOGLOBIN, TOTAL Routine 03/16/2025 1:53 PM EDT Type 2 diabetes mellitus without complication, without long-term current use of insulin ([facility]/HCC) LIPID PANEL WITH REFLEX TO DIRECT LDL Routine 07/13/2024 3:15 PM EDT Type 2 diabetes mellitus without complication, without long-term current use of insulin (CMS/HCC) Essential hypertension ALBUMIN, RANDOM URINE W/CREATININE Routine 07/13/2024 12:00 AM EDT Type 2 diabetes mellitus without complication, without long-term current use of insulin (CMS/HCC) INTRAORAL - COMPLETE SERIES OF RADIOGRAPHIC IMAGES [...] - Both Eyes (05/25/2025 11:15 AM EDT) Narrative Aidee Miller, OD - 06/01/2025 11:30 AM EDT OCT [...] 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 No CNVM. Monitor. Aidee Miller OD OPHTH TOMOGRAPHY Final Result * POCT HGB A1C (03/16/2025 1:53 PM EDT) Hemoglobin A1C 5.0 4.0 - 6.0 % QC Media Lot # [id number] Lot# Expiration Date Blood 03/16/2025 1:53 PM EDT Rosalba Kingsley MD POINT OF CARE TEST EN TER/EDIT ORDERABLES Final Result * (ABNORMAL) Lipid Panel with Reflex to Direct LDL (07/13/2024 3:15 PM EDT) Triglycerides 135 <150 mg/dL [facility] Comment:Desirable Triglyceri de: less than 150 mg/dLBorderline High Triglyceride 150-199 mg/dLHigh Triglyceride: 200-499 mg/dLVery High Triglyceride: greater than or equal to 5OO mg/dL Cholesterol 220(H) <200 mg/dL [facility] Comment:Desirable Cholestero l: less than 200 mg/dLBorderline High Cholesterol: 200-239 mg/dLHigh Cholesterol: greater than 239 mg/dL LDL Cholesterol Calculated 134(H) <100 mg/dL [facility] Comment:Desirable LDL: less than 100 mg/dLNear Optimal/Above Optimal LDL: 110- 129 mg/dLBorderline High LDL: 130-159 mg/dLHigh LDL: 160-189 mg/dLVery High LDL: greater than or equal to 190 mg/dL HDL Cholesterol 59 >40 mg/dL [facility] Comment:Desirable HDL: great er than 40 mg/dL Note: This HDL assay may give artificially low results in patients with liver disease. Blood 07/13/2024 3:15 PM EDT 07/13/2024 4:04 PM EDT us Rosalba Kingsley MD LAB BLOOD ORDERABLES Final Result [facility] [address] [place] [phone] * Albumin, Random Urine W/Creatinine (07/13/2024 12:00 AM EDT) Creatinine, Urine 115.51 mg/dL [facility] Microalbumin Urine 28.0 mg/L [facility] Microalbum Creatinine Ratio Ur 24.2 <30 ug/mg cr [facility] Comment:Albumin/Creatinine R atio Reference Ranges: Normal: < 30 ug/mg creatinine Microalbuminuria: 30 - 300 ug/mg creatinineClinical Albuminuria: > 300 ug/mg creatinine Urine (Urine, Random) 07/13/2024 07/13/2024 us Rosalba Kingsley MD LAB URINE ORDERABLES Final Result [facility] [address] [place] [phone] [phone] * BI Mammogram Diagnostic Tomosynthesis Bilateral (02/12/2024 10:01 AM EDT) Anatomical Region Laterality Modality Breast Bilateral Mammography 02/12/2024 10:0 1 AM EDT Narrative 02/12/2024 12:05 PM EDT [facility] [address] [place] [address] Mammography Report Signed Patient: Kerline Gutierrez MR#: [id number] : 1965 Acct:[id number] Age/Sex: 58 / F ADM Date: 02/12/24 Loc: HO.MAMMO Attending Dr: Rosalba Kingsley MD Ordering Physician: Rosalba Shin MD Results: 2Benign Findings Date of Service: 02/12/24 Follow Up: 1 Year From Orig ina Mammogram Procedure(s): MM tomosynthesis diagnostic BI Accession Number(s): [id number] cc: Rosalba Shin MD EXAMINATION: MM DIAGNOSTIC [...] in OV> 02/12/24 1201 DD/ 1001 TD/TT: [employer]: Procedure Note Donotuseinterpreter, Image - 02/12/2024 [facility] [address] [place] [address] [place] [address] Mammography Report Signed Patient: Diana Gutierrez#: [id number] : 1965Acct:[id number] Age/Sex: 58 / FADM Date: 02/12/24 Loc: HO.MAMMO Attending Dr: Rosalba Kingsley MD Ordering Physician: Rosalba Shin MDResults: 2Benign Findings Date of Service: 02/12/24Follow Up: 1 Year From [facility] Mammogram Procedure(s): MM tomosynthesis diagnostic BI Accession Number(s): [id number] cc: Rosalba Shin MD EXAMINATION: MM DIAGNOSTIC [...] in OV> 02/12/24 1201 DD/ 1001 TD/TT: [employer]: Rosalba Kingsley MD IMG BI PROCEDURES Arash jamaal Result - Final * Image-Guided Pap with Age-Based Screening??with CT/NG,??Trichomonas (09/22/2023 10:18 AM EST) Trichomonas (NAAT) NOT DETECTED NOT DETECTED [facility] Comment:The analytical perfo rmance characteristics of thisassay have been determined by [employer]. Themodifications have not been cleared or approved bythe FDA. This assay has been validated pursuant to theCLIA regulations and is used for clinical purposes.For additional information, please refer tohttp://education.[employer]/faq/Trichomonastma(This link is being provided for information/educational purposes only.)THIS TEST WAS PERFORMED AT:[employer] [address] [id number] GARCIA MD CTNG Ref Lab NOT DETECTED NOT DETECTED [facility] NG Ref Lab NOT DETECTED NOT DETECTED [facility] 09/22/2023 10:1 8 AM EST 09/23/2023 7:30 AM EST Rosalba Kingsley MD LAB CYTOLOGY ORDERABL ES Final Result Performing Organization Address [facility] Co de Phone Number [facility] [address] [place] [address] [phone] * HPV mRNA E6/E7 w/Reflex to HPV Genotypes 16, 18/45 (09/22/2023 10:18 AM EST) HPV nRNA E6/E7 Not Detected Not Detected [facility] Comment:Methodology: Transcr iption-Mediated AmplificationThis assay detects E6/E7 viral messenger RNA (mRNA) from 14high-risk HPV types (16,18,31,33,35,39,45,51,52,56,58,59,66,68).Cervical sources are required for HPV testing.If a vaginal source from a patient who has had atotal hysterectomy with removal of cervix wassubmitted, please contact the testing laboratoryfor alternative testing options.For additional information, please refer tohttp://education.[employer]/faq/MQA164s0(This link if provided for information/educational purposes only.)THIS TEST WAS PERFORMED AT:[facility] [place] [id number] GARCIA MD HPV mRNA E6/E7 [facility] HPV 16 RNA [facility] HPV 18/45 RNA [facility] 09/22/2023 10:1 8 AM EST 09/23/2023 7:30 AM EST us Rosalba Kingsley MD LAB CYTOLOGY ORDERABL ES Final Result Performing Organization Address [facility] Co de Phone Number [facility] [address] [place] [address] [phone] * Hm Colonoscopy (06/01/2018) Colonoscopy Normal Normal Narrative Aditi Durand - 06/01/2018 Recommended 10 year follow up us Historical Provider HEALTH MAINTENANCE Final Result from Last 3 Months or Most Recently Relevant to Health Maintenance [facility] Care Teams Crester Relationship Specialty Start Date End Date Rosalba Shin MD [address] [place] [address] PCP - General Family Medicine 12/26/20
== END 2025-08-17 12:11 | disposition home or self-care (01) ==
LOC: HO.HOS 11:35
PROVIDERS: PCP Internal Medicine; Visit Provider Orthopaedic Surgery
DX: M25.562 Pain in left knee (principal); G56.03 Carpal tunnel syndrome, bilateral upper limbs
CPT/HCPCS: 95886; 95911; 99203

== ENCOUNTER 2025-08-17 12:38 | Outpatient (REF) | payer MEDICAID, SELFPAY ==
--- NOTE | 2025-08-17 12:42 | EMG_ITS ---
Chief complaint: Bilateral hand numbness and pain, diagnosed Carpal Tunnel Syndrome many years ago but no surgery at Reason for referral: Evaluate for Carpal Tunnel Syndrome Referred by: José Miguel SCHREIBER Procedure done: Bilateral upper extremities NCS/EMG Precautions and/or limitations: None. Mohawk speaking seen with re examiner. The limb temperature was monitored continuously and remained between 32-36 degrees C during the performance of the NCS. Nerve Conduction Studies Anti Sensory Summary Table ?Stim Site NR Onset (ms) Norm Onset (ms) Peak (ms) Norm Peak (ms) O-P Amp (?V) Norm O-P Amp Site1 Site2 Delta-0 (ms) Dist (cm) Carlos (m/s) Norm Carlos (m/s) Left Median Anti Sensory (2nd Digit) Wrist NR <3.6 >10 Wrist 2nd Digit 14.0 Right Median Anti Sensory (2nd Digit) Wrist NR <3.6 >10 Wrist 2nd Digit 14.0 Right Radial Anti Sensory (Thumb) Forearm ? 1.8 2.4 <3.1 28.8 Forearm Thumb 1.8 0.0 Left Ulnar Anti Sensory (5th Digit) Wrist ? 2.6 3.3 <3.7 15.3 >15.0 Wrist 5th Digit 2.6 14.0 54 Right Ulnar Anti Sensory (5th Digit) Wrist ? 2.7 3.4 <3.7 15.7 >15.0 Wrist 5th Digit 2.7 14.0 52 Motor Summary Table ?Stim Site NR Onset (ms) Norm Onset (ms) O-P Amp (mV) Norm O-P Amp iAmp (mV) Amp (1st) (%) Site1 Site2 Delta-0 (ms) Dist (cm) Carlos (m/s) Norm Carlos (m/s) Left Median Motor (Abd Poll Brev) Wrist ? 9.2 <3.9 6.0 >4.5 7.5 100.0 Elbow Wrist 3.8 20.0 53 >45 Elbow ? 13.0 5.2 6.6 86.7 Right Median Motor (Abd Poll Brev) Wrist ? 13.5 <3.9 4.1 >4.5 4.8 100.0 Elbow Wrist 4.8 19.0 40 >45 Elbow ? 18.3 3.4 3.8 82.9 Left Ulnar Motor (Abd Dig Minimi) Wrist ? 3.0 <3.0 6.2 >5 7.2 100.0 B Elbow Wrist 3.3 19.0 58 >45 B Elbow ? 6.3 5.4 6.5 87.1 A Elbow B Elbow 1.5 10.0 67 >45 A Elbow ? 7.8 5.5 6.5 88.7 Right Ulnar Motor (Abd Dig Minimi) Wrist ? 3.0 <3.0 7.5 >5 8.4 100.0 B Elbow Wrist 3.6 18.0 50 >45 B Elbow ? 6.6 7.6 8.6 101.3 A Elbow B Elbow 1.2 10.0 83 >45 A Elbow ? 7.8 7.2 8.4 96.0 EMG ?Side Muscle Nerve Root Ins Act Fibs Psw Amp Dur Poly Recrt Int Pat Comment Right 1stDorInt Ulnar C8-T1 Nml Nml Nml Nml Nml 0 Nml Complete Right FlexCarRad Median C6-7 Nml Nml Nml Nml Nml 0 Nml Complete Right Biceps Musculocut C5-6 Nml Nml Nml Nml Nml 0 Nml Complete Right Triceps Radial C6-7-8 Nml Nml Nml Nml Nml 0 Nml Complete Right Deltoid Axillary C5-6 Nml Nml Nml Nml Nml 0 Nml Complete Left 1stDorInt Ulnar C8-T1 Nml Nml Nml Nml Nml 0 Nml Complete Left FlexCarRad Median C6-7 Nml Nml Nml Nml Nml 0 Nml Complete Left Biceps Musculocut C5-6 Nml Nml Nml Nml Nml 0 Nml Complete Left Triceps Radial C6-7-8 Nml Nml Nml Nml Nml 0 Nml Complete Left Deltoid Axillary C5-6 Nml Nml Nml Nml Nml 0 Nml Complete FINDINGS: Right median motor nerve showed prolonged distal latency, small amplitude and slow conduction velocity. Left median motor nerve showed prolonged distal latency, normal amplitude and normal conduction velocity. Bilateral median sensory nerves absent response. All other nerves tested were within normal. Concentric needle EMG was performed in selected muscles of the bilateral upper extremities. Study revealed signs of electric abnormalities as shown in the table above. IMPRESSION: 1. This is an abnormal study. 2. There is electrodiagnostic evidence for bilateral moderate-severe median neuropathy at the wrist, consistent with carpal tunnel syndrome. 3. There is no electrodiagnostic evidence for ulnar neuropathy, brachial plexopathy, or cervical radiculopathy. Thank you for your kind referral. Luisa Tillman MD, SMITH Board Certified, [place] Board of Physical Medicine and Rehabilitation (ABPMR) Board Certified, [place] Board of Electrodiagnostic Medicine (ABEM) CODIN [phone] x 2 MTDD
== END 2025-08-17 12:39 | disposition home or self-care (01) ==
LOC: HO.NEURO 12:38
PROVIDERS: PCP Internal Medicine
DX: R20.2 Paresthesia of skin (principal); R20.0 Anesthesia of skin
CPT/HCPCS: 95886; 95911; 99202

== ENCOUNTER 2025-08-18 14:36 | Outpatient (AMB) | payer MEDICAID, SELFPAY ==
--- OUTSIDE RECORDS SUMMARY | 2025-08-18 14:38 | XMS_ITS | Encounter Summary ---
Author Organization [employer] Address [address] [facility] 7t [place] [address] Care Team Providers Care Commercial Marketing Specialist Name Role Phone Rosalba Shin MD Primary Care Provide r Reason for Visit * Reason Comments Med Refill Encounter Details Date Type Department Care Team ([facility] st Contact Info) Description 04/03/2025 Refill [facility] MED[facility]INE [address] [place], [place] [phone] Rosalba Shin MD [address] [place] [address] Fibromyalgia Social History Tobacco Use Types Packs/Day [...] Description 08/30/2025 9:30 AM EDT Clinical Support [facility] [address] [place] [address] Jeannette Thomas, KARLENE documented as of this encounter Visit Diagnoses Diagnosis Fibromyalgia Unspecified myalgia and myositis documented in this encounter Additional Health Concerns Assessment Noted Time PHQ-9 Depression Total Score: 0 08/12/20 24 11:42 AM EDT documented as of this encounter Care Teams Commercial Marketing Specialist Relationship Specialty Start Date End Date Rosalba Shin MD [address] [place] [address] PCP - General Family Medicine 12/26/20 documented as of this encounter
--- OUTSIDE RECORDS SUMMARY | 2025-08-18 14:38 | XMS_ITS | Encounter Summary ---
Author Organization [employer] Address [address] [facility] 7t [place] [address] Care Team Providers Care Polishing Wheel Setter Name Role Phone Rosalba Shin MD Primary Care Provide r Reason for Visit * Reason Comments Med Refill Encounter Details Date Type Department Care Team ([facility] st Contact Info) Description 03/16/2025 Refill [facility] MEDICINE [address] [place] [address] Rosalba Shin MD [address] [place] [address] Fibromyalgia; Primary insomnia; Rash; Essential hypertension; Other [...] Description 08/30/2025 9:30 AM EDT Clinical Support [facility] MEDICINE [address] [place] [address] Jeannette Thomas RN documented as of this [...] documented as of this encounter Care Teams Polishing Wheel Setter Relationship Specialty Start Date End Date Rosalba Shin MD [address] [place] [address] PCP - General Family Medicine 12/26/20 documented as of this encounter
--- OUTSIDE RECORDS SUMMARY | 2025-08-18 14:38 | XMS_ITS | Encounter Summary ---
Author Organization [employer] Address [address] [facility] 7t [place] [address] Care Team Providers Care Market Research Intern Name Role Phone Rosalba Shin MD Primary Care Provide r Reason for Visit * Reason Comments Med Refill Encounter Details Date Type Department Care Team ([facility] Contact Info) Description 03/17/2023 Refill [facility] MEDICINE [address] [place] [phone] Rosalba Shin MD [address] [place] [phone] Primary insomnia Social History Tobacco Use Types [...] Description 08/30/2025 9:30 AM EDT Clinical Support [facility] MEDICINE [address] [place] [address] Jeannette Thomas RN documented as of this encounter Visit Diagnoses Diagnosis Primary insomnia Persistent disorder of initiating or maintaining sleep documented in this encounter Care Teams Market Research Intern Relationship Specialty Start Date End Date Rosalba Shin MD [address] [place] [phone] PCP - General Family Medicine 12/26/20 documented as of this encounter
--- OUTSIDE RECORDS SUMMARY | 2025-08-18 14:38 | XMS_ITS | Encounter Summary ---
Author Organization [employer] Address 75 [facility] 7t [place] [address] Care Team Providers Care Perinatal Breastfeeding Assistant Name Role Phone Rosalba Shin MD Primary Care Provide r Reason for Visit * Reason Comments Med Refill Encounter Details Date Type Department Care Team ([facility] st Contact Info) Description 06/08/2024 Refill [facility] MEDICINE [address] [place], [place] [phone] Rosalba Shin MD [address] [place] [address] Fibromyalgia Social History Tobacco Use Types Packs/Day [...] Description 08/30/2025 9:30 AM EDT Clinical Support [facility] MEDICINE [address] [place] [address] Jeannette Thomas RN documented as of this encounter Visit Diagnoses Diagnosis Fibromyalgia Unspecified myalgia and myositis documented in this encounter Additional Health Concerns Assessment Noted Time PHQ-9 Depression Total Score: 7 04/06/20 23 2:10 PM EDT documented as of this encounter Care Teams Perinatal Breastfeeding Assistant Relationship Specialty Start Date End Date Rosalba Shin MD 230 [place] [address] PCP - General Family Medicine 12/26/20 documented as of this encounter
--- OUTSIDE RECORDS SUMMARY | 2025-08-18 14:38 | XMS_ITS | Encounter Summary ---
Author Organization [employer] Address 75 [facility] 7t [place] [address] Care Team Providers Care Director Meetings Name Role Phone Rosalba Shin MD Primary Care Provide r Reason for Visit * Reason Comments Med Refill Encounter Details Date Type Department Care Team (Late st Contact Info) Description 12/02/2024 Refill [facility] MEDICINE [address] [place], [place] [phone] Ofelia Wright, ANP 230 [place] [address] Type 2 diabetes mellitus without complication, without long-term current use of insulin ([facility]) Social History Tobacco Use Types Packs/Day Years [...] Description 08/30/2025 9:30 AM EDT Clinical Support [facility] MEDICINE [address] [place] [address] Jeannette Thomas, KARLENE documented as of this encounter Visit Diagnoses Diagnosis Type 2 diabetes mellitus without complication, without long-term current use of insulin (HCC) documented in this encounter Additional Health Concerns Assessment Noted Time PHQ-9 Depression Total Score: 0 08/12/20 24 11:42 AM EDT documented as of this encounter Care Teams Director Meetings Relationship Specialty Start Date End Date Rosalba Shin MD [address] [place] [address] PCP - General Family Medicine 12/26/20 documented as of this encounter
--- OUTSIDE RECORDS SUMMARY | 2025-08-18 14:38 | XMS_ITS | Clinical Summary ---
Author Organization [employer] Address 75 [facility] 7t [place] [address] Care Team Providers Care Truss Driver Helper Name Role Phone Rosalba Shin MD Primary [...] buttocks. 03/16/20 20 Active Deep Sea Nasal Dana 0.65 % nasal sprayIndication s:Viral pharyngitis SPRAY [...] complication, without long-term current use of insulin ([facility]) 1 each 2 times daily. 100 each 2 09/07/20 Active Blood Pressure Monitor kitIndications: Essential hypertension Use as directed 3x/week 1 kit 09/07/20 Active FREESTYLE LITE test stripIndication s:Type 2 diabetes mellitus without complication, without long-term current use of insulin ([facility]) USE DIRECTED TO TEST BLOOD SUGAR TWICE DAILY 100 strip 11 05/30/20 24 Active lisinopril 10 MG tabletIndicatio ns:Hypertension , unspecified type Take 1 tablet (10 mg) by mouth in the morning. 30 tablet 11 07/13/20 24 Active TRUEplus Lancets 33G miscIndications :Type 2 diabetes mellitus without complication, without long-term current use of insulin ([facility]) USE TO TEST BLOOD SUGAR TWICE DAILY 100 each 1 07/21/20 24 Active rosuvastatin (Crestor) 20 MG tabletIndicatio ns:Type 2 diabetes mellitus without complication, without long-term current use of insulin ([facility]) Take 1 tablet (20 mg) by [...] complication, without long-term current use of insulin ([facility]) 1 each 2 times daily. 100 [...] and tramadol I put prescription in today APPLICATION SECURITY ARCHITECT appointment to be rescheduled Assessment & Plan [...] ng multiple sites with positive rheumatoid factor ([facility]) 12/19/2015 Assessment & Plan (08/09/2025 12:27 PM EDT): Patient has upcoming appointment with rheumatology I advised not to miss it I will put in a prescription for tramadol, APPLICATION SECURITY ARCHITECT appointment to be rescheduled Assessment & Plan [...] Team Description 08/09/2025 11:15 AM EDT Telemedicine [facility] [address] [place] [phone] Rosalba Shin MD Essential hypertension (Primary Dx); Rheumatoid arthritis involving multiple sites with positive rheumatoid factor ([facility]); Primary insomnia; Fibromyalgia; Shortness of breath 08/09/2025 Telephone [facility] [address] [place] [phone] Jeannette Thomas RN Schedule APPLICATION SECURITY ARCHITECT Renewal appt 08/09/2025 Travel 08/08/2025 Telephone [facility] [address] [place] [phone] Rosalba Shin MD 07/26/2025 Refill [facility] [address] [place] [phone] Rosalba Shin MD Folliculitis; Fibromyalgia; Chronic low back pain, unspecified back pain laterality, unspecified whether sciatica present 07/24/2025 2:00 PM EDT Office Visit [facility] [address] [place] [phone] Anna Mata FNP Costochondritis (Primary Dx) 07/24/2025 Refill [facility] [address] [place] [phone] Rosalba Shin MD Fibromyalgia 07/24/2025 Travel 07/11/2025 2:40 PM EDT Office Visit [facility] [address] [place] [address] Gino Browning MD Acute strain of neck muscle, initial encounter (Primary Dx); Acute neck pain 07/11/2025 Travel 07/10/2025 Refill [facility] [address] [place] [address] Rosalba Shin MD Essential hypertension 07/09/2025 Refill [facility] [address] [place] [address] Rosalba Shin MD Chronic low back pain, unspecified back pain laterality, unspecified whether sciatica present; Essential hypertension 07/05/2025 9:15 AM EDT Office Visit [facility] [address] [place] [address] Lucretia Francisco, OD Presbyopia (Primary Dx) 07/05/2025 Travel 07/04/2025 Telephone [facility] [address] [place] [address] Rosalba Shin MD telephone call; Needs to schedule APPLICATION SECURITY ARCHITECT RV appt 07/03/2025 Refill [facility] [address] [place] [address] Rosalba Shin MD Primary insomnia; Fibromyalgia 06/07/2025 Refill [facility] [address] [place] [phone] Rosalba Shin MD Dermatitis; Pruritus of both eyes; Dry eye syndrome of unspecified lacrimal gland; Hypothyroidism, unspecified type; Iron deficiency anemia, unspecified iron deficiency anemia type 05/25/2025 11:15 AM EDT Office Visit [facility] [address] [place] [phone] Aidee Miller, OD Old retinal detachment, partial (Primary Dx); Lamellar macular hole of right eye; Presbyopia; Type 2 diabetes mellitus without ophthalmic manifestations ([facility]) 05/25/2025 Refill [facility] [address] [place] [address] Roaslba Shin MD Chronic low back pain, unspecified back pain laterality, unspecified whether sciatica present 05/25/2025 Travel 05/24/2025 Refill [facility] [address] [place] [address] Rosalba Shin MD Fibromyalgia (Primary Dx) 05/24/2025 Refill [facility] [address] [place] [address] Rosalba Shin MD Chronic low back pain, [...] Description 08/30/2025 9:30 AM EDT Clinical Support [facility] [address] [place] [phone] Jeannette Thomas, RN Health Maintenance Due Date [...] complication, without long-term current use of insulin ([facility]/HCC) LIPID PANEL WITH REFLEX TO DIRECT LDL [...] 3:15 PM EDT) Triglycerides 135 <150 mg/dL [facility] Comment:Desirable Triglyceri de: less than 150 mg/dLBorderline High Triglyceride 150-199 mg/dLHigh Triglyceride: 200-499 mg/dLVery High Triglyceride: greater than or equal to 5OO mg/dL Cholesterol 220(H) <200 mg/dL [facility] Comment:Desirable Cholestero l: less than 200 mg/dLBorderline High Cholesterol: 200-239 mg/dLHigh Cholesterol: greater than 239 mg/dL LDL Cholesterol Calculated 134(H) <100 mg/dL [facility] Comment:Desirable LDL: less than 100 mg/dLNear Optimal/Above Optimal LDL: 110- 129 mg/dLBorderline High LDL: 130-159 mg/dLHigh LDL: 160-189 mg/dLVery High LDL: greater than or equal to 190 mg/dL HDL Cholesterol 59 >40 mg/dL [facility] Comment:Desirable HDL: great er than 40 mg/dL Note: This HDL assay may give artificially low results in patients with liver disease. Blood 07/13/2024 3:15 PM EDT 07/13/2024 4:04 PM EDT us Rosalba Kingsley MD LAB BLOOD ORDERABLES Final Result [facility] [address] [place] [phone] * Albumin, Random Urine W/Creatinine (07/13/2024 12:00 AM EDT) Creatinine, Urine 115.51 mg/dL [facility] Microalbumin Urine 28.0 mg/L [facility] Microalbum Creatinine Ratio Ur 24.2 <30 ug/mg cr [facility] Comment:Albumin/Creatinine R atio Reference Ranges: Normal: < 30 ug/mg creatinine Microalbuminuria: 30 - 300 ug/mg creatinineClinical Albuminuria: > 300 ug/mg creatinine Urine (Urine, Random) 07/13/2024 07/13/2024 us Rosalba Kingsley MD LAB URINE ORDERABLES Final Result [facility] [address] [place] [address] [phone] * BI Mammogram Diagnostic Tomosynthesis Bilateral (02/12/2024 10:01 AM EDT) Anatomical Region Laterality Modality Breast Bilateral Mammography 02/12/2024 10:0 1 AM EDT Narrative 02/12/2024 12:05 PM EDT [facility] [address] [place] [address] Mammography Report Signed Patient: Kerline Gutierrez MR#: [id number] : 1965 Acct:[id number] Age/Sex: 58 / F ADM Date: 02/12/24 Loc: HO.MAMMO Attending Dr: Rosalba Kingsley MD Ordering Physician: Rosalba Shin MD Results: 2Benign Findings Date of Service: 02/12/24 Follow Up: 1 Year From Orig ina Mammogram Procedure(s): MM tomosynthesis diagnostic BI Accession Number(s): [id number] cc: Rosalba Shin MD EXAMINATION: MM DIAGNOSTIC [...] in OV> 02/12/24 1201 DD/ 1001 TD/TT: Blast Furnace Helper: Procedure Note Donotuseinterpreter, Image - 02/12/2024 [facility] [address] [place] [address] [place] [address] Mammography Report Signed Patient: Diana Gutierrez#: [id number] : 1965Acct:[id number] Age/Sex: 58 / FADM Date: 02/12/24 Loc: HO.MAMMO Attending Dr: Rosalba Kingsley MD Ordering Physician: Rosalba Shin MDResults: 2Benign Findings Date of Service: 02/12/24Follow Up: 1 Year From [facility] Mammogram Procedure(s): MM tomosynthesis diagnostic BI Accession Number(s): [id number] cc: Rosalba Shin MD EXAMINATION: MM DIAGNOSTIC [...] in OV> 02/12/24 1201 DD/ 1001 TD/TT: Blast Furnace Helper: Rosalba Kingsley MD IMG BI PROCEDURES Arash jamaal Result - Final * Image-Guided Pap with Age-Based Screening??with CT/NG,??Trichomonas (09/22/2023 10:18 AM EST) Trichomonas (NAAT) NOT DETECTED NOT DETECTED [facility] Comment:The analytical perfo rmance characteristics of thisassay have been determined by [employer]. Themodifications have not been cleared or approved bythe FDA. This assay has been validated pursuant to theCLIA regulations and is used for clinical purposes.For additional information, please refer tohttp://education.[employer]/faq/Trichomonastma(This link is being provided for information/educational purposes only.)THIS TEST WAS PERFORMED AT:[email or web address] [address] [id number] GARCIA MD CTNG Ref Lab NOT DETECTED NOT DETECTED [facility] NG Ref Lab NOT DETECTED NOT DETECTED [facility] 09/22/2023 10:1 8 AM EST 09/23/2023 7:30 AM EST Rosalba Kingsley MD LAB CYTOLOGY ORDERABL ES Final Result Performing Organization Address [facility] Co de Phone Number [facility] [address] [place] [address] [phone] * HPV mRNA E6/E7 w/Reflex to HPV Genotypes 16, 18/45 (09/22/2023 10:18 AM EST) HPV nRNA E6/E7 Not Detected Not Detected [facility] Comment:Methodology: Transcr iption-Mediated AmplificationThis assay detects E6/E7 viral messenger RNA (mRNA) from 14high-risk HPV types (16,18,31,33,35,39,45,51,52,56,58,59,66,68).Cervical sources are required for HPV testing.If a vaginal source from a patient who has had atotal hysterectomy with removal of cervix wassubmitted, please contact the testing laboratoryfor alternative testing options.For additional information, please refer tohttp://education.[employer]/faq/YGN731v9(This link if provided for information/educational purposes only.)THIS TEST WAS PERFORMED AT:[email or web address] [place] [id number] GARCIA MD HPV mRNA E6/E7 [facility] HPV 16 RNA [facility] HPV 18/45 RNA [facility] 09/22/2023 10:1 8 AM EST 09/23/2023 7:30 AM EST us Rosalba Kingsley MD LAB CYTOLOGY ORDERABL ES Final Result Performing Organization Address [facility] Co de Phone Number [facility] [address] [place] [address] [phone] * Hm Colonoscopy (06/01/2018) Colonoscopy Normal Normal Narrative Aditi Durand - 06/01/2018 Recommended 10 year follow up us Historical Provider HEALTH MAINTENANCE Final Result from Last 3 Months or Most Recently Relevant to Health Maintenance [facility] Care Teams Truss Driver Helper Relationship Specialty Start Date End Date Rosalba Shin MD [address] [place] [address] PCP - General Family Medicine 12/26/20
--- OUTSIDE RECORDS SUMMARY | 2025-08-18 14:38 | XMS_ITS | Encounter Summary ---
Author Organization [employer] Address [address] [facility] 7t [place] [address] Care Team Providers Care Quill Stripper Name Role Phone Rosalba Shin MD Primary Care Provide r Reason for Visit * Reason Comments Med Refill Encounter Details Date Type Department Care Team (Late st Contact Info) Description 10/22/[address] [facility] MEDICINE [address] [place] [address] Maria L Navarro MD [address] [place] [address] Chronic low back pain, unspecified back pain [...] 9:30 AM EDT Clinical Support [facility] MED[facility] [address] [place] [address] Jeannette Thomas RN documented as of this encounter Visit Diagnoses Diagnosis Chronic low back pain, unspecified back pain laterality, unspecified whether sciatica present documented in this encounter Additional Health Concerns Assessment Noted Time PHQ-9 Depression Total Score: 7 04/06/20 23 2:10 PM EDT documented as of this encounter Care Teams Quill Stripper Relationship Specialty Start Date End Date Rosalba Shin MD [address] [place] [address] PCP - General Family Medicine 12/26/20 documented as of this encounter
--- OUTSIDE RECORDS SUMMARY | 2025-08-18 14:38 | XMS_ITS | Encounter Summary ---
Author Organization [employer] Address [address] [facility] 7t [place] [address] Care Team Providers Care Political Science Instructor Name Role Phone Rosalba Shin MD Primary Care Provide r Reason for Visit * Reason Comments Med Refill Encounter Details Date Type Department Care Team (Late st Contact Info) Description 12/02/2024 Refill [facility] [address] [place], [place] [phone] Name, MD Gino [address] [place] [address] Social History Tobacco Use Types Packs/Day Years [...] Description 08/30/2025 9:30 AM EDT Clinical Support [facility] [address] [place] [address] Jeannette Thomas, KARLENE documented as of this encounter Visit Diagnoses Not on filedocumented in this encounter Additional Health Concerns Assessment Noted Time PHQ-9 Depression Total Score: 0 08/12/20 24 11:42 AM EDT documented as of this encounter Care Teams Political Science Instructor Relationship Specialty Start Date End Date Rosalba Shin MD [address] [place] [address] PCP - General Family Medicine 12/26/20 documented as of this encounter
--- OUTSIDE RECORDS SUMMARY | 2025-08-18 14:38 | XMS_ITS | Encounter Summary ---
Author Organization [employer] Address [address] [place] [address] 7t [place] [address] Care Team Providers Care Filling And Packing Supervisor Name Role Phone Rosalba Shin MD Primary Care Provide r Reason for Visit * Reason Comments Med Refill Encounter Details Date Type Department Care Team (Late st Contact Info) Description 03/10/2023 Refill [facility] [address] [place] [phone] Name, MD Gino [address] [place] [phone] Chronic low back pain, unspecified back pain [...] Description 08/30/2025 9:30 AM EDT Clinical Support [facility] [address] [place] [phone] Jeannette Thomas RN documented as of this encounter Visit Diagnoses Diagnosis Chronic low back pain, unspecified back pain laterality, unspecified whether sciatica present documented in this encounter Care Teams Filling And Packing Supervisor Relationship Specialty Start Date End Date Rosalba Shin MD [address] [place] [address] PCP - General Family Medicine 12/26/20 documented as of this encounter
--- OUTSIDE RECORDS SUMMARY | 2025-08-18 14:39 | XMS_ITS | Clinical Summary ---
Author Organization [facility] Address [address] [place] [address] Care Team Providers Care Social And Human Services Assistant Name Role Phone Unavailable Primary Care Provider [...]
--- OUTSIDE RECORDS SUMMARY | 2025-08-18 14:39 | XMS_ITS | Encounter Summary ---
Author Organization [employer] Address 75 [facility] 7t [place] [address] Care Team Providers Care Roentgenology Teacher Name Role Phone Rosalba Shin MD Primary Care Provide r Encounter Details Date Type Department Care Team ([facility] st Contact Info) Description 08/26/2023 Abstract [facility] [address] [place], [place] [phone] Rosalba Shin MD [address] [place], [place] [phone] Social History Tobacco Use Types Packs/Day Years [...] t he electric, gas, oil or water [employer] threatened to shut off services in your [...] Description 08/30/2025 9:30 AM EDT Clinical Support [facility] [address] [place] [address] Jeannette Thomas RN documented as of this [...] documented as of this encounter Care Teams Roentgenology Teacher Relationship Specialty Start Date End Date Rosalba Shin MD [address] [place] [address] PCP - General Family Medicine 12/26/20 documented as of this encounter
[2025-08-18 14:56] VITALS: BMI 19.1
--- NOTE | 2025-08-18 14:56 | MHC.OFFVIS ---
Vital Signs 08/18/25 14:56 Height 5 ft 5 in Weight 115 lb BMI 19.1 Intake Visit Reasons: EMG review of B/L hands Intake Note: Kerline 59 yr old female presents today for bilateral hand EMG review. States her right hand is worse and would like to sign up for right hand CTR. IMPRESSION: 1. This is an abnormal study. 2. There is electrodiagnostic evidence for bilateral moderate-severe median neuropathy at the wrist, consistent with carpal tunnel syndrome. 3. There is no electrodiagnostic evidence for ulnar neuropathy, brachial plexopathy, or cervical radiculopathy. Allergies No Known Allergies (No Known Allergies*) Allergy (Verified 08/18/25 14:59) HPI HPI EMG review of B/L hands: Details: Kerline 59 yr old female presents today for bilateral hand EMG review. States her right hand is worse and would like to sign up for right hand CTR. Patient reports that symptoms are intermittent, daily, worse at night both hands IMPRESSION: 1. This is an abnormal study. 2. There is electrodiagnostic evidence for bilateral moderate-severe median neuropathy at the wrist, consistent with carpal tunnel syndrome. 3. There is no electrodiagnostic evidence for ulnar neuropathy, brachial plexopathy, or cervical radiculopathy. [facility] Medical History (Updated 08/17/25 @ 12:33 by Ernst Gupta MD) Breast pain Fibromyalgia Anxiety and depression Bilateral carpal tunnel syndrome Type 2 diabetes mellitus Essential hypertension Sjogren's syndrome Rheumatoid arthritis involving multiple sites with positive rheumatoid factor Acquired hypothyroidism Cervical radiculopathy Lumbar radiculopathy Asthma Surgical History H/O gastric bypass Hx of cataract extraction No history of previous surgery Family History Mother Arthritis Father No problems noted. Other Medical history unknown Social History Household Members: None Alcohol intake: never Patient Tobacco Use Status: Never used Tobacco Current occupational status: disabled Review of Systems Const All systems reviewed & are unremarkable except as noted in HPI and below Physical Exam Vital Signs: BMI result Body Mass Index 19.1 Extrem Other: Neuro: Normal sensation of the tips of all digits of bilateral hands in the office today No thenar or intrinsic wasting. Good APB muscle firing and good finger cross. Vascular: Capillary refill brisk. ROM: Patient can make a fist and extend all their digits. Skin: No lacerations or abrasions noted. General: No ecchymosis. No erythema or evidence of infection. Assessment & Plan Assessment & Plan (1) Bilateral carpal tunnel syndrome: Code(s): G56.03 - Carpal tunnel syndrome, bilateral upper limbs Category: Medical Plan 1. Right carpal tunnel syndrome Symptoms intermittent, daily, worse at night I educated the patient about the condition. I discussed both operative and nonoperative treatment options. The patient would like to proceed with surgery. The risks and benefits of operative treatment were discussed with the patient and the patient wishes to proceed with surgery. These risks include, but are not limited to, risk of damage to blood vessels, nerves, tendons, infection, recurrence, incomplete relief of preoperative symptoms, persistent pain, possible need for further surgery, and the risks associated with regional blocks and/or anesthesia. Plan is to take the patient to the operating room at some point in the next few weeks for the following procedures: 1. Right carpal tunnel release under local anesthesia All of the preoperative paperwork including the consent was discussed today. All of the patient's questions were answered in the clinic today. The patient understands that they will be in contact with our care team coordinator scheduler to discuss scheduling their procedure. Patient denies diabetes, blood thinners, asthma, heart issues, lung issues, kidney issues, or current smoking. Coding Level of Care Code Est Pt Level 4 (66772) Diagnoses Bilateral carpal tunnel syndrome G56.03
== END 2025-08-18 15:35 | disposition home or self-care (01) ==
LOC: HO.HOS 14:36
PROVIDERS: PCP Internal Medicine
DX: G56.03 Carpal tunnel syndrome, bilateral upper limbs (principal)
CPT/HCPCS: 99214

== ENCOUNTER → 2025-08-18 14:36 | Outpatient (BNVA) | payer MEDICAID, SELFPAY | PROVIDERS: PCP Internal Medicine | DX: Z01.818 Encounter for other preprocedural examination (principal); G56.03 Carpal tunnel syndrome, bilateral upper limbs | CPT/HCPCS: 99212 ==

== ENCOUNTER → 2025-09-01 14:35 | Outpatient (REF) | payer MEDICAID, SELFPAY ==
--- OUTSIDE RECORDS SUMMARY | 2025-08-30 09:30 | XMS_ITS | Encounter Summary ---
Author Organization [employer] Address [address] [facility] [address] [place] [address] Care Team Providers Care Chief Development Officer Name Role Phone Rosalba Shin MD Primary Care Provide r Reason for Visit * Reason Comments ELECTRICAL CONTINUITY INSPECTOR Renewal Encounter Details Date Type Department Care Team (Latest Contact Info) Description 08/30/2025 9:30 AM EDT Clinical Support [facility] MEDICINE [address] [place] [address] Jeannette Thomas RN Long-term current use of opiate analgesic (Primary Dx) Social History Tobacco Use Types [...] Progress Notes * Jeannette Thomas RN - 08/30/2025 9:30 AM EDT SUBJECTIVE: Kerline Gutierrez is a 59 y.o. year old female who presents for ELECTRICAL CONTINUITY INSPECTOR Renewal Preferred language for medical information: Guatemalan Interpreted needed: Yes Pot Pusher service utilized: [email or web address] Pot Pusher I.D #: [id number] Kerline Gutierrez does report adherence to Tramadol (Ultram) 50 mg, take 1 tablet every 8 hours PRN, last refilled 08/10/2025. States she takes between 1-3 doses a day, usually only 2 a day. The patient last took Tramadol (Ultram) on: 08/30/2025 Medication is: 75% % effective at alleviating pain. Pt stated she's having right carpal tunnel surgery in October. Pt is also asking for physical therapy for her knee to be done in [facility]. OBJECTIVE: NAUMKEAG OPERATOR checked: 08/30/2025 Pill count completed for Tramadol (Ultram), count today is 53 , anticipated count should be 23, this is as expected. Vital Signs Pain Score: 8 Pain Loc: Wrist Pain Education: Yes Additional pain site: Bilateral wrists/carpal tunnel and left knee Last PCP visit: 08/09/2025 BPI completed on: 08/30/2025 , pain severity score: 7, activity interference score: 6 BPI completed on: 10/06/2024 , pain severity score: 7, activity interference score: 10 Controlled substance agreement signed: Controlled Substance Agreement 08/30/2025 Controlled substance agreement: signed and up to date ELECTRICAL CONTINUITY INSPECTOR Tier: 2 Current Medications[1] Smoking status: Denies ETOH use: Denies Illicit substances: Denies Marijuana use: No Lab Results Component Value Date POCTHC Negative 08/30/2025 POCCOCAINEUR Negative 08/30/2025 POCOPIATEUR Negative 08/30/2025 DOAUR Negative 08/30/2025 POCAMPHETAMI Negative 08/30/2025 POCBENZODIUR Negative 08/30/2025 POCBARBSCRN Negative 08/30/2025 POCMETHADOUR Negative 08/30/2025 POCBUPSCRN Negative 08/30/2025 POCTCAUR Positive (A) 08/30/2025 POCMDMAUR Negative 08/30/2025 POCOXYCODONE Negative 08/30/2025 POCPHENCYCUR Negative 08/30/2025 PROPOXUR Negative 08/30/2025 FENTANYLURIN Negative 08/30/2025 ASSESSMENT: Encounter Diagnosis Name Primary? Long-term current use of opiate analgesic Yes PLAN: Information on pain group given: Yes Information on acupuncture given: Yes Narcan education provided: Yes Narcan prescription: active Reviewed postop pain management process. Explained to patient that after her surgery she should only be using pain medication that the surgeon provides. She should not use/resume or request refill ofTramadol until the surgeon is done managing her postop pain. Pt stated she understood. Will update PCP with BPI scoring and request physical therapy referral for a [facility] Controlled substance agreement reviewed and signed. A copy was given to the patient. Kerline Gutierrez will continue taking medications as prescribed and has verbalized understanding of care plan. Future Appointments Date Time Provider Department Center 11/30/2025 10:00 AM Jeannette Thomas RN MEDICINE [facility] Jeannette Thomas RN [1] Current Outpatient Medications: naloxone (Narcan) 4 mg/0.1 mL nasal spray, Administer 1 spray (4 mg) into affected nostril(s) if needed for opioid reversal. May repeat every 2-3 minutes if needed, alternating nostrils, until medical assistance becomes available., Disp: 2 each, Rfl: 3 traMADol (Ultram) 50 MG tablet, Take 1 tablet (50 mg) by mouth every 8 (eight) hours if needed for severe pain for up to 28 days., Disp: 84 tablet, Rfl: 0 acetaminophen (Tylenol 8 Hour) 650 MG ER tablet, TAKE 2 TABLETS BY MOUTH EVERY 8 HOURS NEEDED FOR MILD PAIN DO NOT BREAK, CRUSH, DISSOLVE OR CHEW, Disp: 40 tablet, Rfl: 2 albuterol (Ventolin HFA) 108 (90 Base) MCG/ACT inhaler, INHALE 2 PUFFS BY MOUTH FOUR TIMES DAILY ASNEEDED, Disp: 18 g, Rfl: 1 Alcohol Swabs 70 % pads, , Disp: , Rfl: amoxicillin (Amoxil) 500 MG capsule, Take 1 capsule by mouth every 6 (six) hours during the day., Disp: , Rfl: Asmanex HFA 200 MCG/ACT aerosol, INHALE 1 PUFF BY MOUTH EVERY TWELVE HOURS. RINSE MOUTH AFTER USING., Disp: 13 g, Rfl: 2 aspirin (Aspirin Low Dose) 81 MG EC tablet, Take 1 tablet (81 mg) by mouth in the morning., Disp: 90 tablet, Rfl: 1 baclofen (Lioresal) 10 MG tablet, Take 1 tablet (10 mg) by mouth 3 times daily for 10 days., Disp: 30 tablet, Rfl: 0 betamethasone, augmented, (Diprolene) 0.05 % ointment, Apply topically 2 times daily., Disp: 15 g, Rfl: 0 Blood Glucose Monitoring Suppl (Blood Glucose Monitor System) w/Device kit, 1 each 2 times daily., Disp: 1 kit, Rfl: 0 Blood Pressure Monitor kit, Use as directed 3x/week, Disp: 1 kit, Rfl: 0 Breo Ellipta 200-25 MCG/ACT aerosol powder , INHALE 1 PUFF BY MOUTH EVERY DAY AT THE SAME TIME RINSE MOUTH AFTER USING, Disp: , Rfl: cholecalciferol (D3 Super Strength) 50 MCG (2000 UT) capsule, TAKE 1 CAPSULE BY MOUTH EVERY DAY IN THE MORNING, Disp: 90 capsule, Rfl: 3 cyclobenzaprine (Flexeril) 5 MG tablet, Take 1 tablet (5 mg) by mouth every 8 (eight) hours if needed for muscle spasms., Disp: 30 tablet, Rfl: 0 Deep Sea Nasal Leslie 0.65 % nasal spray, SPRAY 2 SPRAYS IN EACH NOSTRIL NEEDED FOR NASAL CONGESTION, Disp: 44 mL, Rfl: 1 dextran 70-hypromellose (artificial tears) 0.1-0.3 % ophthalmic solution, Administer 1 drop into both eyes if needed in the morning, at noon, and at bedtime for dry eyes., Disp: 30 mL, Rfl: 1 Diclofenac Sodium 1 % gel, APPLY 2 GRAMS TOPICALLY TO AFFECTED AREA(S) FOUR TIMES DAILY DIRECTED, Disp: 100 g, Rfl: 1 doxycycline (Vibramycin) 100 MG capsule, Take 1 capsule by mouth 2 times daily., Disp: , Rfl: Ferrous Sulfate (iron) 325 (65 Fe) MG tablet, TAKE 1 TABLET BY MOUTH TWICE DAILY WITH ORANGE JUICE,Disp: 180 tablet, Rfl: 1 Fluocinolone Acetonide Scalp 0.01 % oil, APPLY TO THE AFFECTED AREA(S) 3 TIMES PER WEEK AT NIGHT WITH COVER ON HEAD, DECREASE TO 3 TIMES PER MONTH UNTIL SYMPTOMS IMPROVE, Disp: 118.28 mL, Rfl: 1 fluticasone (Flonase) 50 MCG/ACT nasal spray, 2 sprays., Disp: , Rfl: FREESTYLE LITE test strip, USE DIRECTED TO TEST BLOOD SUGAR TWICE DAILY, Disp: 100 strip, Rfl: 11 glucose blood (FREESTYLE LITE) test strip, at bed time., Disp: , Rfl: hydroCHLOROthiazide (HYDRODiuril) 25 MG tablet, TAKE 1 TABLET BY MOUTH EVERY MORNING, Disp: 90 tablet, Rfl: 1 Lancets misc, 1 each 2 times daily., Disp: 100 each, Rfl: 2 levothyroxine (Synthroid, Levoxyl) 200 MCG tablet, TAKE 1 TABLET BY MOUTH ONCE DAILY, Disp: 90 tablet, Rfl: 1 levothyroxine (Synthroid, Levoxyl) 25 MCG tablet, TAKE 1 TABLET BY MOUTH EVERY MORNING, Disp: 90 tablet, Rfl: 1 lidocaine (Lidoderm) 5 % patch, APPLY 1 PATCH TOPICALLY TO SKIN, LEAVE ON FOR 12 HOURS AND OFF FOR 12 HOURS DIRECTED, Disp: 30 patch, Rfl: 1 lisinopril 10 MG tablet, Take 1 tablet (10 mg) by mouth in the morning., Disp: 30 tablet, Rfl: 11 loratadine (Claritin) 10 MG tablet, TAKE 1 TABLET BY MOUTH EVERY DAY NEEDED, Disp: 90 tablet, Rfl: 3 omeprazole OTC (PriLOSEC OTC) 20 MG EC tablet, 1 tablet by mouth once a day, Disp: , Rfl: polyvinyl alcohol (Liquifilm Tears) 1.4 % ophthalmic solution, PLACE 1 DROP IN EACH EYE THREE TIMESDAILY IN THE MORNING, AT NOON, AND AT BEDTIME NEEDED FOR DRY EYES, Disp: 30 mL, Rfl: 1 rosuvastatin (Crestor) 20 MG tablet, Take 1 tablet (20 mg) by mouth Once per day., Disp: 30 tablet,Rfl: 11 senna (Senokot) 8.6 MG tablet, Take 1 tablet (8.6 mg) by mouth at bedtime., Disp: 90 tablet, Rfl: 1 Skin Protectants, Misc. (eucerin) cream, Apply topically every 12 (twelve) hours., Disp: , Rfl: TRUEplus Lancets 33G misc, USE TO TEST BLOOD SUGAR TWICE DAILY, Disp: 100 each, Rfl: 1 TRUEplus Lancets 33G misc, 1 each 2 times daily., Disp: 100 each, Rfl: 11 venlafaxine XR (Effexor XR) 37.5 MG 24 hr capsule, TAKE 1 CAPSULE TWICE DAILY. DO NOT BREAK, CRUSH,DISSOLVE OR CHEW, Disp: 60 capsule, Rfl: 2 Ventolin HFA 108 (90 Base) MCG/ACT inhaler, INHALE 2 PUFFS BY MOUTH EVERY 6 HOURS NEEDED FOR WHEEZING, Disp: 18 g, Rfl: 1 zolpidem (Ambien) 10 MG tablet, Take 1 tablet (10 mg) by mouth if needed at bedtime for sleep for up to 5 days., Disp: 5 tablet, Rfl: 0 zolpidem (Ambien) 10 MG tablet, Take 1 tablet (10 mg) by mouth if needed at bedtime for sleep., Disp: 28 tablet, Rfl: 0 zoster vaccine-recombinant adjuvanted (Shingrix) 50 MCG/0.5ML vaccine, Inject 0.5 mL into the shoulder, thigh, or buttocks., Disp: , Rfl: documented in this encounter Plan of Treatment Upcoming Encounters Date Type Department Care Team (Late st Contact Info) Description 11/30/2025 10:00 AM EST Clinical Support [address] [id number] Jeannette Thomas, RN documented as of this encounter Procedures Procedure Name Priority Date/Time Associated Diagnosis Comments POCT JUVE-14 URINE DRUG SCREEN Routine 08/30/2025 9:44 AM EDT Long-term current use of opiate analgesic documented in this encounter Results * (ABNORMAL) POCT JUVE-14 Urine Drug Screen (08/30/2025 9:44 AM EDT) THC Negative Negative Cocaine Screen, Urine Negative Negative Opiate Screen, Urine Negative Negative Methamphetamine Screen Urine Negative Negative Amphetamine Screen, Urine Negative Negative Benzodiazepines Screen, Urine Negative Negative Barbiturate Screen, Urine Negative Negative Methadone Screen, Urine Negative Negative Buprenophine Screen, Urine Negative Negative TCA, Urine Positive(A) Negative MDMA Urine Negative Negative ng/mL Oxycodone Screen, Urine Negative Negative Phencyclidine (PCP), Urine Negative Negative Propoxyphene, Urine Negative Negative Fentanyl, Urine Negative Negative Urine Urine specimen obtained by clean catch procedure / Unknown 08/30/2025 9:44 AM EDT Jeannette Flores RN - 08/30/2025 9:44 AM EDT UTOX cup Lot#[id number] Exp. 08/22/26 Internal Pass Control Rosalba Kingsley MD POINT OF CARE TEST EN TER/EDIT ORDERABLES Final Result documented in this encounter Visit Diagnoses Diagnosis Long-term current use of opiate analgesic- Primary Encounter for long-term (current) use of other medications documented in this encounter Additional Health Concerns Assessment Noted Time PHQ-9 Depression Total Score: 0 08/09/20 25 11:01 AM EDT documented as of this encounter Care Teams Chief Development Officer Relationship Specialty Start Date End Date Rosalba Shin MD [address] [place] [id number] PCP - General Family Medicine 12/26/20 documented as of this encounter
--- NOTE | 2025-09-01 14:37 | CA_ITS ---
Transthoracic Echocardiogram Patient (Last, First, Middle): Kerline Gutierrez, Gender: F Date of : 1965 Age: 59 Procedure Date: 09/01/2025 Procedure Type: Transthoracic Echocardiogram Location: OP Height: 165.1 cm Weight: 114.99 kg BSA: 2.19 m2 Heart Rate: 72 bpm BP: 120 / 62 mmHg Specifications Writer: SB Referring MD: John Chahal MD Symptoms: R07.2 - Precordial pain Study Quality: Adequate ECG Rhythm: Sinus Conclusions: - Normal left ventricular size, thickness, and systolic function. The visually estimated ejection fraction is between 55-60%. There is evidence of regional wall motion abnormalities. Diastolic function is normal for age. - The basal inferior and mid inferior segments are hypokinetic. - Normal right ventricular cavity size and systolic function. - There is mild dilatation of the ascending aorta measuring 3.60 cm. Findings Left Ventricle Normal left ventricular size, thickness, and systolic function. The visually estimated ejection fraction is between 55-60%. There is evidence of regional wall motion abnormalities. Diastolic function is normal for age. Wall Motion Rest Echo Findings The basal inferior and mid inferior segments are hypokinetic. Right Ventricle Normal right ventricular cavity size and systolic function. Atria The left atrium is normal in size. The right atrium is normal in size. Aortic Valve Normal aortic valve structure and function. There is no aortic valve stenosis. There is mild aortic valve regurgitation. Mitral Valve Normal mitral valve structure and function. There is no mitral valve regurgitation. There is no mitral valve stenosis. Pulmonic Valve The pulmonic valve is normal. There is trace pulmonic valve regurgitation. Tricuspid Valve Normal tricuspid valve structure. There is no tricuspid valve regurgitation. Tricuspid regurgitation envelope is inadequate for calculation of right ventricular systolic pressure. Normal right atrial pressure. Great Vessels There is mild dilatation of the ascending aorta measuring 3.60 cm. The visualized portions of the pulmonary artery and branches are normal. Venous The inferior vena cava is normal in size and collapses greater than 50% with inspiration. Pericardium/Pleural There is no evidence of pericardial effusion. Measurements 2D Linear Measurements IVSd: 0.90 0.6-0.9/0.6-1.0 cm LVIDd: 4.72 3.9-5.3/4.2-5.9 cm LVIDd Index: 2.16 2.4-3.2/2.2-3.1 cm/m2 LVIDs: 3.12 2.0-3.6 cm LVPWd: 0.59 0.7-1.1 cm LA Diam: 3.60 2.7-3.8/3.0-4.0 cm LAIDs Index: 1.64 1.5-2.3 cm/m2 LV Mass: 139.58 67-162/88-224 g LV Mass Index: 63.74 43-95/49-115 g/m2 LVOT Diam: 2.20 3.0+(-)1.3 cm 2D Systolic Function EF 4C: 67.50 >55% EF 2C: 58.10 >55% EF BiP: 62.70 >55% Mitral Valve MV Pk E: 0.63 MV PK A: 0.66 MV Decel Time: 164.00 E/A: 1.00 E'Lateral: 6.85 E'Medial: 6.42 E/E' Med: 9.80 E/E' Lat: 9.10 PHT: 48.00 MVA PHT: 4.58 Decel Yuba: 3.81 Aortic Valve AoV Pk Carlos: 1.52 AoV Mn Calros: 1.04 AoV VTI: 0.33 AoV Pk Grad: 9.00 Aov Mn Grad: 5.00 AMARILIS Cont.VTI: 2.80 AI Pk Carlos: 4.70 AI VTI: 2.25 AI Yuba: 2.13 LVOT LVOT Pk Carlos: 1.03 LVOT Mn Carlos: 0.76 LVOT VTI: 0.24 LVOT Pk Grad: 4.00 LVOT Mn Grad: 3.00 LVOT Diam: 2.20 LVOT Area: 3.80 Diastolic Function MV Pk E: 0.63 MV Pk A: 0.66 E/A: 1.00 E'Medial: 6.42 E/E' Med: 9.80 E' Laterial: 6.85 E/E' Lat: 9.10 Right Ventricle TAPSE (mm): 22.60 TVS' Carlos: 13.80 Tricuspid Valve RA Press: 3.00 Great Vessels Aorta Sinus of Valsalva: 3.50 2.0-3.5 cm Ao Asc: 3.60 2.1-3.4 cm Ao Arch: 3.20 Pulmonary Veins Pulm Vein S/D 1.50 Pulmonary Valve PV Pk Carlos: 0.84 Peak PV Grad: 3.00 MI Pk Carlos: 1.30 Updated in Other Vendor System with Status of Final Alex Caldera MD electronically signed on 09/03/2025 3:18:53 PM with status of Final
--- OUTSIDE RECORDS SUMMARY | 2025-09-01 17:05 | XMS_ITS | Encounter Summary ---
Author Organization [employer] Address [address] [facility] 7t [place] [address] Care Team Providers Care Beam Sealer Name Role Phone Rosalba Shin MD Primary Care Provide r Reason for Visit * Reason Comments Med Refill Encounter Details Date Type Department Care Team ([facility] st Contact Info) Description 06/08/2024 Refill [facility] [address] [place], [place] [phone] Rosalba Shin MD [address] [place] [address] Fibromyalgia Social History Tobacco Use Types Packs/Day [...] Description 11/30/2025 10:00 AM EST Clinical Support [facility] [address] [place] [address] Jeannette Thomas RN documented as of this encounter Visit Diagnoses Diagnosis Fibromyalgia Unspecified myalgia and myositis documented in this encounter Additional Health Concerns Assessment Noted Time PHQ-9 Depression Total Score: 7 04/06/20 23 2:10 PM EDT documented as of this encounter Care Teams Beam Sealer Relationship Specialty Start Date End Date Rosalba Shin MD [address] [place] [address] PCP - General Family Medicine 12/26/20 documented as of this encounter
--- OUTSIDE RECORDS SUMMARY | 2025-09-01 17:05 | XMS_ITS | Encounter Summary ---
Author Organization [employer] Address [address] [facility] 7t [place] [address] Care Team Providers Care Retail Greeter Name Role Phone Rosalba Shin MD Primary Care Provide r Reason for Visit * Reason Comments Med Refill Encounter Details Date Type Department Care Team (Late st Contact Info) Description 10/22/2023 Refill [facility] [address] [place] [address] Maria L Navarro MD [address] [place] [address] Chronic low back pain, unspecified back pain [...] Description 11/30/2025 10:00 AM EST Clinical Support [facility] [address] [place] [address] Jeannette Thomas RN documented as of this encounter Visit Diagnoses Diagnosis Chronic low back pain, unspecified back pain laterality, unspecified whether sciatica present documented in this encounter Additional Health Concerns Assessment Noted Time PHQ-9 Depression Total Score: 7 04/06/20 23 2:10 PM EDT documented as of this encounter Care Teams Retail Greeter Relationship Specialty Start Date End Date Rosalba Shin MD [address] [place] [address] PCP - General Family Medicine 12/26/20 documented as of this encounter
--- OUTSIDE RECORDS SUMMARY | 2025-09-01 17:05 | XMS_ITS | Encounter Summary ---
Author Organization [employer] Address [address] [facility] 7t [place] [address] Care Team Providers Care Human Factors Engineer Name Role Phone Rosalba Shin MD Primary Care Provide r Reason for Visit * Reason Comments Med Refill Encounter Details Date Type Department Care Team ([facility] st Contact Info) Description 04/03/2025 Refill [facility] [address] [place], [place] [phone] Rosalba Shin MD [address] [place] [address] Fibromyalgia Social History Tobacco Use Types Packs/Day [...] Description 11/30/2025 10:00 AM EST Clinical Support [facility] [address] [place] [address] Jeannette Thomas, KARLENE documented as of this encounter Visit Diagnoses Diagnosis Fibromyalgia Unspecified myalgia and myositis documented in this encounter Additional Health Concerns Assessment Noted Time PHQ-9 Depression Total Score: 0 08/12/20 24 11:42 AM EDT documented as of this encounter Care Teams Human Factors Engineer Relationship Specialty Start Date End Date Rosalba Shin MD [address] [place] [address] PCP - General Family Medicine 12/26/20 documented as of this encounter
--- OUTSIDE RECORDS SUMMARY | 2025-09-01 17:06 | XMS_ITS | Encounter Summary ---
Author Organization [employer] Address [address] [facility] [address] [place] [address] Care Team Providers Care Email Campaign Manager Name Role Phone Rosalba Shin MD Primary Care Provide r Reason for Visit * Reason Onset Date Comments QUALITY ASSURANCE CALIBRATOR Agreement renewed today 08/30/2025 Patient requesting physical therapy in [place] 1 Encounter Details Date Type Department Care Team ([facility] st Contact Info) Description 08/30/[address] [facility] [address] [place] [address] Jeannette Thomas, KARLENE QUALITY ASSURANCE CALIBRATOR Agreement renewed today; Patient requesting physical therapy in [place] Social History Tobacco Use Types Packs/Day Years [...] Telephone Encounter - Jeannette Thomas RN - 08/30/2025 9:49 AM EDT Pt had QUALITY ASSURANCE CALIBRATOR Renewal appointment today BPI completed on: 08/30/2025 , pain severity score: 7, activity interference score: 6 BPI completed on: 10/06/2024 , pain severity score: 7, activity interference score: 10 She is requesting to have physical therapy in [place]. She was sent to [place]. documented in this encounter Plan of Treatment Upcoming Encounters Date Type Department Care Team (Late st Contact Info) Description 11/30/2025 10:00 AM EST Clinical Support [facility] [address] [place] [address] Jeannette Thomas, RN documented as of this encounter Visit Diagnoses Not on filedocumented in this encounter Additional Health Concerns Assessment Noted Time PHQ-9 Depression Total Score: 0 08/09/20 25 11:01 AM EDT documented as of this encounter Care Teams Email Campaign Manager Relationship Specialty Start Date End Date Rosalba Shin MD [address] [place] [address] PCP - General Family Medicine 12/26/20 documented as of this encounter
--- OUTSIDE RECORDS SUMMARY | 2025-09-01 17:06 | XMS_ITS | Encounter Summary ---
Author Organization [employer] Address [address] [facility] 7t [place] [address] Care Team Providers Care Plaster Applicator Name Role Phone Rosalba Shin MD Primary Care Provide r Reason for Visit * Reason Comments Med Refill Encounter Details Date Type Department Care Team ([facility] st Contact Info) Description 03/16/2025 Refill [facility] [address] [place] [address] Rosalba Shin MD [address] [place] [address] Fibromyalgia; Primary insomnia; Rash; Essential hypertension; Other [...] EST Clinical Support [facility] [address] [place] [address] Jeannette Thomas RN documented as of this [...] documented as of this encounter Care Teams Plaster Applicator Relationship Specialty Start Date End Date Rosalba Shin MD [address] [place] [address] PCP - General Family Medicine 12/26/20 documented as of this encounter
--- OUTSIDE RECORDS SUMMARY | 2025-09-01 17:06 | XMS_ITS | Clinical Summary ---
Author Organization [employer] Address 75 [facility] 7t [place] [address] Care Team Providers Care Digital Field Service Technician Name Role Phone Rosalba Shin MD [...] buttocks. 03/16/20 20 Active Deep Sea Nasal [place] 0.65 % nasal sprayIndication s:Viral pharyngitis SPRAY [...] each 2 times daily. 1 kit 09/07/20 23 Active Lancets miscIndications :Type 2 diabetes mellitus without complication, without long-term current use of insulin ([facility]) 1 each 2 times daily. 100 each 2 09/07/20 23 Active Blood Pressure Monitor kitIndications: Essential hypertension Use as directed 3x/week 1 kit 09/07/20 Active FREESTYLE LITE test stripIndication s:Type 2 diabetes mellitus without complication, without long-term current use of insulin ([facility]) USE DIRECTED TO TEST BLOOD SUGAR TWICE DAILY 100 strip 11 05/30/20 24 Active lisinopril 10 MG tabletIndicatio ns:Hypertension , unspecified type Take 1 tablet (10 mg) by mouth in the morning. 30 tablet 11 07/13/20 24 Active TRUEplus Lancets 33G miscIndications :Type 2 diabetes mellitus without complication, without long-term current use of insulin ([facility]) USE TO TEST BLOOD SUGAR TWICE DAILY 100 each 1 07/21/20 24 Active rosuvastatin (Crestor) 20 MG tabletIndicatio ns:Type 2 diabetes mellitus without complication, without long-term current use of insulin ([facility]) Take 1 tablet (20 mg) by mouth Once per day. 30 tablet 11 08/12/20 24 Active naloxone (Narcan) 4 mg/0.1 mL nasal sprayIndication s:Fibromyalgia Administer 1 spray (4 mg) into affected nostril(s) if needed for opioid reversal. May repeat every 2-3 minutes if needed, alternating nostrils, until medical assistance becomes available. 2 each 3 10/06/20 24 025 Active dextran 70-hypromellose (artificial tears) 0.1-0.3 % ophthalmic solutionIndicat ions:Dry eye Administer 1 drop into both eyes if needed in the morning, at noon, and at bedtime for dry eyes. 30 mL 1 11/08/20 24 Active TRUEplus Lancets 33G miscIndications :Type 2 diabetes mellitus without complication, without long-term current use of insulin ([facility]) 1 [...] for muscle spasms. 30 tablet 04/01/20 25 026 Active venlafaxine XR (Effexor XR) 37.5 MG [...] TWICE DAILY WITH ORANGE JUICE 180 tablet 1 06/08/20 25 Active zolpidem (Ambien) 10 MG [...] 10 days. 30 tablet 07/24/20 25 Active acetaminophen (Tylenol 8 Hour) 650 [...] 12 HOURS DIRECTED 30 patch 1 07/26/20 Active traMADol (Ultram) 50 MG tabletIndicatio ns:Rheumatoid arthritis involving multiple sites with positive rheumatoid factor (CMS/HCC) (HCC) Take 1 tablet (50 mg) by mouth every 8 (eight) hours if needed for severe pain for up to 28 days. 84 tablet 08/09/20 25 025 Active zolpidem (Ambien) 10 MG tabletIndicatio ns:Primary insomnia Take 1 tablet (10 mg) by mouth if needed at bedtime for sleep. 28 tablet 08/09/20 25 025 Active naproxen (Naprosyn) 500 MG tablet Take 1 tablet (500 mg) by mouth 2 times daily. 60 tablet 07/24/20 25 025 gabapentin (Neurontin) 300 MG capsuleIndicati ons:Fibromyalgi a TAKE 1 CAPSULE BY MOUTH THREE TIMES DAILY 90 capsule 2 07/26/20 25 025 Discontinued Active Problems Problem Noted Date Diagnosed Date Long-term current use of opiate analgesic 2024 Primary insomnia 08/09/2025 Assessment & Plan (08/09/2025 [...] and tramadol I put prescription in today [employer] appointment to be rescheduled Assessment & Plan [...] ng multiple sites with positive rheumatoid factor ([facility]) 12/19/2015 Assessment & Plan (08/09/2025 12:27 PM EDT): Patient has upcoming appointment with rheumatology I advised not to miss it I will put in a prescription for tramadol, [employer] appointment to be rescheduled Assessment & Plan [...] Encounters Date Type Department Care Team Description 08/30/2025 9:30 AM EDT Clinical Support [address] [address] Jeannette Thomas RN Long-term current use of opiate analgesic (Primary Dx) 08/30/[address] [address] Jeannette Thomas, RN [employer] Agreement renewed today; Patient requesting physical therapy in [place] 08/30/2025 Travel 08/09/2025 11:15 AM EDT Telemedicine [address] [address] Rosalba Shin MD Essential hypertension (Primary Dx); Rheumatoid arthritis involving multiple sites with positive rheumatoid factor ([facility]); Primary insomnia; Fibromyalgia; Shortness of breath 08/09/2025 Telephone [facility] [address] [place] [phone] Jeannette Thomas RN Schedule [employer] Renewal appt 08/09/2025 Travel 08/08/2025 Telephone [facility] [address] [place] [address] Rosalba Shin MD 07/26/2025 Refill [facility] [address] [place] [address] Rosalba Shin MD Folliculitis; Fibromyalgia; Chronic low back pain, unspecified back pain laterality, unspecified whether sciatica present 07/24/2025 2:00 PM EDT Office Visit [facility] [address] [place] [address] Anna Mata FNP Costochondritis (Primary Dx) 07/24/2025 Refill [facility] [address] [place] [address] Rosalba Shin MD Fibromyalgia 07/24/2025 Travel 07/11/2025 2:40 PM EDT Office Visit [facility] [address] [place] [phone] Gino Browning MD Acute strain of neck muscle, initial encounter (Primary Dx); Acute neck pain 07/11/2025 Travel 07/10/2025 Refill [facility] [address] [place] [phone] Rosalba Shin MD Essential hypertension 07/09/2025 Refill [facility] [address] [place] [address] Rosalba Shin MD Chronic low back pain, unspecified back pain laterality, unspecified whether sciatica present; Essential hypertension 07/05/2025 9:15 AM EDT Office Visit [facility] OPTOMET[facility] [address] [place] [address] NolanLucretia wilson, OD Presbyopia (Primary Dx) 07/05/2025 Travel 07/04/2025 Telephone [facility] [address] [place] [address] Rosalba Shin MD telephone call; Needs to schedule [employer] RV appt 07/03/2025 Refill [facility] [address] [place] [phone] Rosalba Shin MD Primary insomnia; Fibromyalgia 06/07/2025 Refill [facility] [address] [place] [address] Rosalba Shin MD Dermatitis; Pruritus of both eyes; Dry eye syndrome of unspecified lacrimal gland; Hypothyroidism, unspecified type; Iron deficiency anemia, unspecified iron deficiency anemia type from Last 3 Months Immunizations Immunization Administration [...] Description 11/30/2025 10:00 AM EST Clinical Support [address] [address] Jeannette Thomas, RN Health Maintenance Due Date [...] 08/09/2026 08/09/2025 Depression Screening 08/09/2026 08/09/2025, 08/09/20 25 Dental X-Ray: Full Mouth 03/05/2027 03/04/2024 Eye [...] EDT Long-term current use of opiate analgesic POCT GLYCATED HEMOGLOBIN, TOTAL Routine 03/16/2025 1:53 PM EDT Type 2 diabetes mellitus without complication, without long-term current use of insulin ([facility]) LIPID PANEL WITH REFLEX TO DIRECT LDL Routine 07/13/2024 3:15 PM EDT Type 2 diabetes mellitus without complication, without long-term current use of insulin ([facility]) Essential hypertension ALBUMIN, RANDOM URINE W/CREATININE Routine 07/13/2024 12:00 AM EDT Type 2 diabetes mellitus without complication, without long-term current use of insulin ([facility]) INTRAORAL [...] Relevant to Health Maintenance Results * (ABNORMAL) POCT JUVE-14 Urine Drug [...] - 08/30/2025 9:44 AM EDT UTOX cup Lot#[id number] Exp. 08/22/26 Internal Pass Control Rosalba Kingsley MD POINT OF CARE TEST EN TER/EDIT ORDERABLES Final Result * POCT HGB A1C (03/16/2025 1:53 PM EDT) Hemoglobin A1C 5.0 4.0 - 6.0 % QC Media Lot # [id number] Lot# Expiration Date Blood 03/16/2025 1:53 PM EDT Rosalba Kingsley MD POINT OF CARE TEST EN TER/EDIT ORDERABLES Final Result * (ABNORMAL) Lipid Panel with Reflex to Direct LDL (07/13/2024 3:15 PM EDT) Triglycerides 135 <150 mg/dL [facility] Comment:Desirable Triglyceri de: less than 150 mg/dLBorderline High Triglyceride 150-199 mg/dLHigh Triglyceride: 200-499 mg/dLVery High Triglyceride: greater than or equal to 5OO mg/dL Cholesterol 220(H) <200 mg/dL [facility] Comment:Desirable Cholestero l: less than 200 mg/dLBorderline High Cholesterol: 200-239 mg/dLHigh Cholesterol: greater than 239 mg/dL LDL Cholesterol Calculated 134(H) <100 mg/dL [facility] Comment:Desirable LDL: less than 100 mg/dLNear Optimal/Above Optimal LDL: 110- 129 mg/dLBorderline High LDL: 130-159 mg/dLHigh LDL: 160-189 mg/dLVery High LDL: greater than or equal to 190 mg/dL HDL Cholesterol 59 >40 mg/dL [facility] Comment:Desirable HDL: great er than 40 mg/dL Note: This HDL assay may give artificially low results in patients with liver disease. Blood 07/13/2024 3:15 PM EDT 07/13/2024 4:04 PM EDT Rosalba Kingsley MD LAB BLOOD ORDERABLES Final Result [facility] [address] [place] [phone] * Albumin, Random Urine W/Creatinine (07/13/2024 12:00 AM EDT) Creatinine, Urine 115.51 mg/dL [facility] Microalbumin Urine 28.0 mg/L [facility] Microalbum Creatinine Ratio Ur 24.2 <30 ug/mg cr [facility] Comment:Albumin/Creatinine R atio Reference Ranges: Normal: < 30 ug/mg creatinine Microalbuminuria: 30 - 300 ug/mg creatinineClinical Albuminuria: > 300 ug/mg creatinine Urine (Urine, Random) 07/13/2024 07/13/2024 us Rosalba Kingsley MD LAB URINE ORDERABLES Final Result [facility] [address] [place] [phone] * BI Mammogram Diagnostic Tomosynthesis Bilateral (02/12/2024 10:01 AM EDT) Anatomical Region Laterality Modality Breast Bilateral Mammography 02/12/2024 10:0 1 AM EDT Narrative 02/12/2024 12:05 PM EDT [address] [place] [address] Mammography Report Signed Patient: Kerline Gutierrez MR#: [id number] : 1965 Acct:[id number] Age/Sex: 58 / F ADM Date: 02/12/24 Loc: .MAMMO Attending Dr: Rosalba Kingsley MD Ordering Physician: Rosalba Shin MD Results: 2Benign Findings Date of Service: 02/12/24 Follow Up: 1 Year From Orig ina Mammogram Procedure(s): MM tomosynthesis diagnostic BI Accession Number(s): [id number] cc: Rosalba Shin MD EXAMINATION: MM DIAGNOSTIC [...] in OV> 02/12/24 1201 DD/ 1001 TD/TT: Command And Control: Procedure Note Donotuseinterpreter, Image - 02/12/[facility] [address] [place] [address] Mammography Report Signed Patient: Diana Gutierrez#: [id number] : 1965Acct:[id number] Age/Sex: 58 / FADM Date: 02/12/24 Loc: HO.MAMMO Attending Dr: Rosalba Kingsley MD Ordering Physician: Rosalba Shin MDRdaylinults: 2Benign Findings Date of Service: 02/12/24Follow Up: 1 Year From Orig ina Mammogram Procedure(s): MM tomosynthesis diagnostic BI Accession Number(s): [id number] cc: Rosalba Shin MD EXAMINATION: MM DIAGNOSTIC [...] in OV> 02/12/24 1201 DD/ 1001 TD/TT: Command And Control: Rosalba Kingsley MD IMG BI PROCEDURES Arash jamaal Result - Final * Image-Guided Pap with Age-Based Screening??with CT/NG,??Trichomonas (09/22/2023 10:18 AM EST) Trichomonas (NAAT) NOT DETECTED NOT DETECTED [facility] Comment:The analytical perfo rmance characteristics of thisassay have been determined by [employer]. Themodifications have not been cleared or approved bythe FDA. This assay has been validated pursuant to theCLIA regulations and is used for clinical purposes.For additional information, please refer tohttp://education.Mapflow/faq/Trichomonastma(This link is being provided for information/educational purposes only.)THIS TEST WAS PERFORMED AT:[facility] [address] [id number] GARCIA MD CTNG Ref Lab NOT DETECTED NOT DETECTED [facility] NG Ref Lab NOT DETECTED NOT DETECTED [facility] 09/22/2023 10:1 8 AM EST 09/23/2023 7:30 AM EST Rosalba Kingsley MD LAB CYTOLOGY ORDERABL ES Final Result [facility] [address] [place] [phone] * HPV mRNA E6/E7 w/Reflex to HPV Genotypes 16, 18/45 (09/22/2023 10:18 AM EST) HPV nRNA E6/E7 Not Detected Not Detected [facility] Comment:Methodology: Transcr iption-Mediated AmplificationThis assay detects E6/E7 viral messenger RNA (mRNA) from 14high-risk HPV types (16,18,31,33,35,39,45,51,52,56,58,59,66,68).Cervical sources are required for HPV testing.If a vaginal source from a patient who has had atotal hysterectomy with removal of cervix wassubmitted, please contact the testing laboratoryfor alternative testing options.For additional information, please refer tohttp://education.SquadMail.Milyoni/faq/QUM450k4(This link if provided for information/educational purposes only.)THIS TEST WAS PERFORMED AT:[facility] [address] [id number] GARCIA MD HPV mRNA E6/E7 TNP [facility] HPV 16 RNA TNP [facility] HPV 18/45 RNA TNP [facility] 09/22/2023 10:1 8 AM EST 09/23/2023 7:30 AM EST us Rosalba Kingsley MD LAB CYTOLOGY ORDERABL ES Final Result [facility] [address] [place] [address] [phone] * Hm Colonoscopy (06/01/2018) Colonoscopy Normal Normal Narrative Aditi Durand - 06/01/2018 Recommended 10 year follow up us Historical Provider HEALTH MAINTENANCE Final Result from Last 3 Months or Most Recently Relevant to Health Maintenance Insurance [facility] STAND ADULT Care Teams Digital Field Service Technician Relationship Specialty Start Date End Date Rosalba Shin MD [address] [place] [phone] PCP - General Family Medicine 12/26/20
--- OUTSIDE RECORDS SUMMARY | 2025-09-01 17:06 | XMS_ITS | Encounter Summary ---
Author Organization [employer] Address 75 [facility] 7t [place] [address] Care Team Providers Care Bath Steward Name Role Phone Rosalba Shin MD Primary Care Provide r Encounter Details Date Type Department Care Team ([facility] st Contact Info) Description 08/26/2023 Abstract [facility] [address] [place], [place] [phone] Rosalba Shin MD [address] [place], [place] [phone] Social History Tobacco Use Types Packs/Day Years [...] t he electric, gas, oil or water [employer] threatened to shut off services in your [...] Description 11/30/2025 10:00 AM EST Clinical Support [facility] [address] [place] [address] Jeannette Thomas RN documented as of this [...] documented as of this encounter Care Teams Bath Steward Relationship Specialty Start Date End Date Rosalba Shin MD [address] [place] [address] PCP - General Family Medicine 12/26/20 documented as of this encounter
--- OUTSIDE RECORDS SUMMARY | 2025-09-01 17:06 | XMS_ITS | Clinical Summary ---
Author Organization [facility] Address [address] [place] [address] Care Team Providers Care Talent Manager Name Role Phone Unavailable Primary Care Provider [...]
--- OUTSIDE RECORDS SUMMARY | 2025-09-01 17:06 | XMS_ITS | Encounter Summary ---
Author Organization [employer] Address [address] [facility] 7t [place] [address] Care Team Providers Care Used Equipment Sales Representative Name Role Phone Rosalba Shin MD Primary Care Provide r Reason for Visit * Reason Comments Med Refill Encounter Details Date Type Department Care Team (Late st Contact Info) Description 12/02/2024 Refill [facility] [address] [place], [place] [phone] Ofelia Wright, ANP [address] [place] [address] Type 2 diabetes mellitus without complication, without long-term current use of insulin ([facility]) Social History Tobacco Use Types [...] Description 11/30/2025 10:00 AM EST Clinical Support [facility] [address] [place] [address] Jeannette Thomas, KARLENE documented as of this encounter Visit Diagnoses Diagnosis Type 2 diabetes mellitus without complication, without long-term current use of insulin (HCC) documented in this encounter Additional Health Concerns Assessment Noted Time PHQ-9 Depression Total Score: 0 08/12/20 24 11:42 AM EDT documented as of this encounter Care Teams Used Equipment Sales Representative Relationship Specialty Start Date End Date Rosalba Shin MD [address] [place] [address] PCP - General Family Medicine 12/26/20 documented as of this encounter
--- OUTSIDE RECORDS SUMMARY | 2025-09-01 17:06 | XMS_ITS | Encounter Summary ---
Author Organization [employer] Address [address] [facility] 7t [place] [address] Care Team Providers Care Guidance Consultant Name Role Phone Rosalba Shin MD Primary Care Provide r Encounter Details Date Type Department Care Team (Latest Contact Info) Description 08/30/2025 Travel Social History Tobacco Use Types Packs/Day [...] Description 11/30/2025 10:00 AM EST Clinical Support [facility] [address] [place] [address] Jeannette Thomas RN documented as of this encounter Visit Diagnoses Not on filedocumented in this encounter Additional Health Concerns Assessment Noted Time PHQ-9 Depression Total Score: 0 08/09/20 25 11:01 AM EDT documented as of this encounter Care Teams Guidance Consultant Relationship Specialty Start Date End Date Rosalba Shin MD [address] [place] [address] PCP - General Family Medicine 12/26/20 documented as of this encounter
--- OUTSIDE RECORDS SUMMARY | 2025-09-01 17:06 | XMS_ITS | Encounter Summary ---
Author Organization [employer] Address 75 [facility] 7t [place] [address] Care Team Providers Care Relocation Associate Name Role Phone Rosalba Shin MD Primary Care Provide r Reason for Visit * Reason Comments Med Refill Encounter Details Date Type Department Care Team ([facility] Contact Info) Description 03/17/2023 Refill [facility] [address] [place] [phone] Rosalba Shin MD [address] [place] [address] [phone] Primary insomnia Social History Tobacco Use Types [...] Encounters Date Type Department Care Team (Late Contact Info) Description 11/30/2025 10:00 AM EST Clinical Support [facility] [address] [place] [phone] Jeannette Thomas RN documented as of this encounter Visit Diagnoses Diagnosis Primary insomnia Persistent disorder of initiating or maintaining sleep documented in this encounter Care Teams Relocation Associate Relationship Specialty Start Date End Date Rosalba Shin MD [address] [place] [phone] PCP - General Family Medicine 12/26/20 documented as of this encounter
--- OUTSIDE RECORDS SUMMARY | 2025-09-01 17:06 | XMS_ITS | Encounter Summary ---
Author Organization [employer] Address 75 [facility] 7t [place] [address] Care Team Providers Care Chief Inspector Name Role Phone Rosalba Shin MD Primary Care Provide r Reason for Visit * Reason Comments Med Refill Encounter Details Date Type Department Care Team (Late st Contact Info) Description 12/02/2024 Refill [facility] [address] [place], [place] [phone] Name, MD Gino [address] [place] [address] Social History Tobacco Use Types Packs/Day Years [...] Description 11/30/2025 10:00 AM EST Clinical Support [facility] [address] [place] [address] Jeannette Thomas RN documented as of this encounter Visit Diagnoses Not on filedocumented in this encounter Additional Health Concerns Assessment Noted Time PHQ-9 Depression Total Score: 0 08/12/20 24 11:42 AM EDT documented as of this encounter Care Teams Chief Inspector Relationship Specialty Start Date End Date Rosalba Shin MD [address] [place] [address] PCP - General Family Medicine 12/26/20 documented as of this encounter
--- OUTSIDE RECORDS SUMMARY | 2025-09-01 17:06 | XMS_ITS | Encounter Summary ---
Author Organization [employer] Address [address] [place] [address] 7t [place] [address] Care Team Providers Care Portfolio Director Name Role Phone Rosalba Shin MD Primary Care Provide r Reason for Visit * Reason Comments Med Refill Encounter Details Date Type Department Care Team (Late st Contact Info) Description 03/10/2023 Refill [facility] [address] [place] [phone] Name, MD Gino [address] [place] [phone] Chronic low back pain, unspecified back pain [...] Description 11/30/2025 10:00 AM EST Clinical Support [facility] [address] [place] [address] [phone] Jeannette Thomas RN documented as of this encounter Visit Diagnoses Diagnosis Chronic low back pain, unspecified back pain laterality, unspecified whether sciatica present documented in this encounter Care Teams Portfolio Director Relationship Specialty Start Date End Date Rosalba Shin MD [address] [place] [address] PCP - General Family Medicine 12/26/20 documented as of this encounter
== END ==
LOC: HO.CARD 14:35
PROVIDERS: PCP Internal Medicine; Visit Provider Internal Medicine
DX: R07.2 Precordial pain (principal)
CPT/HCPCS: 93306

== ENCOUNTER → 2025-09-01 14:37 | Outpatient (BNV) | payer MEDICAID, SELFPAY | PROVIDERS: PCP Internal Medicine; Visit Provider Internal Medicine Cardiovascular Disease | DX: I35.1 Nonrheumatic aortic (valve) insufficiency (principal); I51.89 Other ill-defined heart diseases; I77.810 Thoracic aortic ectasia | CPT/HCPCS: 93306 ==

== ENCOUNTER 2025-09-26 15:39 | Outpatient (REF) | payer MEDICAID, SELFPAY ==
--- OUTSIDE RECORDS SUMMARY | 2025-09-26 17:12 | XMS_ITS | Encounter Summary ---
Author Organization [employer] Address 75 [facility] 7t [place] [address] Care Team Providers Care Lead Engineer Name Role Phone Rosalba Shin MD Primary Care Provide r Reason for Visit * Reason Comments Med Refill Encounter Details Date Type Department Care Team ([facility] Contact Info) Description 03/17/2023 Refill [facility] MEDICINE [address] [place] [address] [phone] Rosalba Shin MD [address] [place] [address] [phone] Primary insomnia Social History Tobacco Use Types [...] Description 11/30/2025 10:00 AM EST Clinical Support [facility] [address] [place] [address] [phone] Jeannette Thomas RN documented as of this encounter Visit Diagnoses Diagnosis Primary insomnia Persistent disorder of initiating or maintaining sleep documented in this encounter Care Teams Lead Engineer Relationship Specialty Start Date End Date Rosalba Shin MD [address] [place] [phone] PCP - General Family Medicine 12/26/20 documented as of this encounter
--- OUTSIDE RECORDS SUMMARY | 2025-09-26 17:12 | XMS_ITS | Encounter Summary ---
Author Organization [employer] Address [address] [facility] 7t [place] [address] Care Team Providers Care Manager Income Tax Name Role Phone Rosalba Shin MD Primary Care Provide r Encounter Details Date Type Department Care Team ([facility] st Contact Info) Description 08/26/2023 Abstract [facility] MEDICINE [address] [place], [place] [phone] Rosalba Shin MD [address] [place], [place] [phone] Social History Tobacco Use Types Packs/Day Years [...] t he electric, gas, oil or water [employer] threatened to shut off services in your [...] Description 11/30/2025 10:00 AM EST Clinical Support [facility] MEDICINE [address] [place] [address] Jeannette Thomas RN documented as of this [...] as of this encounter Care Teams Manager Income Tax Relationship Specialty Start Date End Date Rosalba Shin MD [address] [place] [address] PCP - General Family Medicine 12/26/20 documented as of this encounter
--- OUTSIDE RECORDS SUMMARY | 2025-09-26 17:12 | XMS_ITS | Encounter Summary ---
Author Organization [employer] Address [address] [facility] 7t [place] [address] Care Team Providers Care Automatic Pinsetter Adjuster Name Role Phone Rosalba Shin MD Primary Care Provide r Reason for Visit * Reason Comments Med Refill Encounter Details Date Type Department Care Team ([facility] st Contact Info) Description 04/03/2025 Refill [facility] MEDICINE [address] [place], [place] [phone] Rosalba Shin MD [address] [place] [address] Fibromyalgia Social History Tobacco Use Types Packs/Day [...] housing situation today? I have sailaja mujiac 06/20/[address] you li [...] Description 11/30/2025 10:00 AM EST Clinical Support [facility] MEDICINE [address] [place] [address] Jeannette Thomas, KARLENE documented as of this encounter Visit Diagnoses Diagnosis Fibromyalgia Unspecified myalgia and myositis documented in this encounter Additional Health Concerns Assessment Noted Time PHQ-9 Depression Total Score: 0 08/12/20 24 11:42 AM EDT documented as of this encounter Care Teams Automatic Pinsetter Adjuster Relationship Specialty Start Date End Date Rosalba Shin MD [address] [place] [address] PCP - General Family Medicine 12/26/20 documented as of this encounter
--- OUTSIDE RECORDS SUMMARY | 2025-09-26 17:12 | XMS_ITS | Encounter Summary ---
Author Organization [employer] Address [address] [facility] 7t [place] [address] Care Team Providers Care Administrative Coordinator Name Role Phone Rosalba Shin MD Primary Care Provide r Reason for Visit * Reason Comments Med Refill Encounter Details Date Type Department Care Team (Late st Contact Info) Description 12/02/2024 Refill [facility] MEDICINE [address] [place], [place] [phone] Ofelia Wright, ANP [address] [place] [address] Type 2 diabetes mellitus without complication, without long-term current use of insulin ([facility]) Social History Tobacco Use Types [...] 10:00 AM EST Clinical Support [facility] MEDICINE [address] [place] [address] Jeannette Thomas, KARLENE documented as of this encounter Visit Diagnoses Diagnosis Type 2 diabetes mellitus without complication, without long-term current use of insulin (HCC) documented in this encounter Additional Health Concerns Assessment Noted Time PHQ-9 Depression Total Score: 0 08/12/20 24 11:42 AM EDT documented as of this encounter Care Teams Administrative Coordinator Relationship Specialty Start Date End Date Rosalba Shin MD [address] [place] [address] PCP - General Family Medicine 12/26/20 documented as of this encounter
--- OUTSIDE RECORDS SUMMARY | 2025-09-26 17:12 | XMS_ITS | Encounter Summary ---
Author Organization [employer] Address [address] [facility] 7t [place] [address] Care Team Providers Care Supervisor [employer] Name Role Phone Rosalba Shin MD Primary Care Provide r Reason for Visit * Reason Comments Med Refill Encounter Details Date Type Department Care Team (Late st Contact Info) Description 09/24/2025 Refill [facility] [address] [place] [address] Christine Newell MD [address] [place] [address] Hypertension, unspecified type Social History Tobacco Use Types Packs/Day [...] Clinical Support [facility] MEDICINE [address] [place] [address] Jeannette Thomas, KARLENE documented as of this encounter Visit Diagnoses Diagnosis Hypertension, unspecified type documented in this encounter Additional Health Concerns Assessment Noted Time PHQ-9 Depression Total Score: 0 08/09/20 25 11:01 AM EDT documented as of this encounter Care Teams Supervisor [employer] Relationship Specialty Start Date End Date Rosalba Shin MD [address] [place] [address] PCP - General Family Medicine 12/26/20 documented as of this encounter
--- OUTSIDE RECORDS SUMMARY | 2025-09-26 17:12 | XMS_ITS | Encounter Summary ---
Author Organization [employer] Address [address] [facility] 7t [place] [address] Care Team Providers Care Novelty Worker Name Role Phone Rosalba Shin MD Primary Care Provide r Reason for Visit * Reason Comments Med Refill Encounter Details Date Type Department Care Team ([facility] st Contact Info) Description 06/08/2024 Refill [facility] MEDICINE [address] [place], [place] [phone] Rosalba Shin MD [address] [place] [address] Fibromyalgia Social History Tobacco Use Types Packs/Day [...] Description 11/30/2025 10:00 AM EST Clinical Support [facility] MEDICINE [address] [place] [address] Jeannette Thomas RN documented as of this encounter Visit Diagnoses Diagnosis Fibromyalgia Unspecified myalgia and myositis documented in this encounter Additional Health Concerns Assessment Noted Time PHQ-9 Depression Total Score: 7 04/06/20 23 2:10 PM EDT documented as of this encounter Care Teams Novelty Worker Relationship Specialty Start Date End Date Rosalba Shin MD [address] [place] [address] PCP - General Family Medicine 12/26/20 documented as of this encounter
--- OUTSIDE RECORDS SUMMARY | 2025-09-26 17:12 | XMS_ITS | Encounter Summary ---
Author Organization [employer] Address [address] [facility] 7t [place] [address] Care Team Providers Care Blast Furnace Checker Name Role Phone Rosalba Shin MD Primary Care Provide r Reason for Visit * Reason Comments Med Refill Encounter Details Date Type Department Care Team ([facility] st Contact Info) Description 12/02/2024 Refill [facility] [address] [place], [place] [phone] Name, MD Gino [address] [place] [address] Social History Tobacco Use Types Packs/Day Years [...] Description 11/30/2025 10:00 AM EST Clinical Support [facility] MEDICINE [address] [place] [address] Jeannette Thomas RN documented as of this encounter Visit Diagnoses Not on filedocumented in this encounter Additional Health Concerns Assessment Noted Time PHQ-9 Depression Total Score: 0 08/12/20 24 11:42 AM EDT documented as of this encounter Care Teams Blast Furnace Checker Relationship Specialty Start Date End Date Rosalba Shin MD [address] [place] [address] PCP - General Family Medicine 12/26/20 documented as of this encounter
--- OUTSIDE RECORDS SUMMARY | 2025-09-26 17:12 | XMS_ITS | Encounter Summary ---
Author Organization [employer] Address [address] [facility] 7[address] [place] [address] Care Team Providers Care Castings Trimmer Name Role Phone Rosalba Shin MD Primary Care Provide r Reason for Visit * Reason Comments Med Refill Encounter Details Date Type Department Care Team ([facility] st Contact Info) Description 03/16/2025 Refill [facility] MEDICINE [address] [place] [address] Rosalba Shin MD [address] [place] [address] Fibromyalgia; Primary insomnia; Rash; Essential hypertension; Other [...] Clinical Support [facility] MEDICINE [address] [place] [address] Jeannette Thomas RN documented as of this [...] documented as of this encounter Care Teams Castings Trimmer Relationship Specialty Start Date End Date Rosalba Shin MD [address] [place] [address] PCP - General Family Medicine 12/26/20 documented as of this encounter
--- OUTSIDE RECORDS SUMMARY | 2025-09-26 17:12 | XMS_ITS | Encounter Summary ---
Author Organization [employer] Address [address] [facility] [address]t [place] [address] Care Team Providers Care Supervisor [employer] Name Role Phone Rosalba Shin MD Primary Care Provide r Reason for Visit * Reason Comments Med Refill Encounter Details Date Type Department Care Team ([facility] st Contact Info) Description 09/24/2025 Refill [facility] MEDICINE [address] [place] [address] Rosalba Shin MD [address] [place] [address] Essential hypertension; Type 2 diabetes mellitus without complication, without long-term current use of insulin (HCC); Other constipation; Hypertension, unspecified type Social History Tobacco Use [...] Description 11/30/2025 10:00 AM EST Clinical Support [facility] MEDICINE [address] [place] [address] Jeannette Thomas RN documented as of this encounter Visit Diagnoses Diagnosis Essential hypertension Unspecified essential hypertension Type 2 diabetes mellitus without complication, without long-term current use of insulin (HCC) Other constipation Hypertension, unspecified type documented in this encounter Additional Health Concerns Assessment Noted Time PHQ-9 Depression Total Score: 0 08/09/20 25 11:01 AM EDT documented as of this encounter Care Teams Supervisor [employer] Relationship Specialty Start Date End Date Rosalba Shin MD [address] [place] [address] PCP - General Family Medicine 12/26/20 documented as of this encounter
--- OUTSIDE RECORDS SUMMARY | 2025-09-26 17:12 | XMS_ITS | Clinical Summary ---
Author Organization [employer] Address [address] [facility] [address]t [place] [address] Care Team Providers Care Tank Terminal Gauger Name Role Phone Rosalba Shin MD Primary [...] buttocks. 03/16/20 20 Active Deep Sea Nasal Mckenzie 0.65 % nasal sprayIndication s:Viral pharyngitis SPRAY [...] complication, without long-term current use of insulin ([facility]) 1 each 2 times daily. 100 each 2 09/07/20 Active Blood Pressure Monitor kitIndications: Essential hypertension Use as directed 3x/week 1 kit 09/07/20 Active FREESTYLE LITE test stripIndication s:Type 2 diabetes mellitus without complication, without long-term current use of insulin ([facility]) USE DIRECTED TO TEST BLOOD SUGAR TWICE DAILY 100 strip 11 05/30/20 24 Active TRUEplus Lancets 33G miscIndications :Type 2 diabetes mellitus without complication, without long-term current use of insulin ([facility]) USE TO TEST BLOOD SUGAR TWICE DAILY 100 each 1 07/21/20 24 Active naloxone (Narcan) 4 mg/0.1 mL nasal sprayIndication s:Fibromyalgia Administer 1 spray (4 mg) into affected nostril(s) if needed for opioid reversal. May repeat every 2-3 minutes if needed, alternating nostrils, until medical assistance becomes available. 2 each 3 10/06/20 24 2024 Active dextran 70-hypromellose (artificial tears) 0.1-0.3 % ophthalmic solutionIndicat ions:Dry eye Administer 1 drop into both eyes if needed in the morning, at noon, and at bedtime for dry eyes. 30 mL 1 11/08/20 24 Active TRUEplus Lancets 33G miscIndications :Type 2 diabetes mellitus without complication, without long-term current use of insulin ([facility]) 1 each 2 times daily. 100 [...] times daily. 15 g 03/16/20 25 Active amoxicillin (Amoxil) 500 MG capsule Take 1 capsule by mouth every 6 (six) hours during the day. 12/26/19 Active doxycycline (Vibramycin) 100 MG capsule Take 1 capsule by mouth 2 times daily. 06/27/20 Active Breo Ellipta 200-25 MCG/ACT aerosol powder [...] DIRECTED 30 patch 1 07/26/20 25 Active zolpidem (Ambien) 10 MG tabletIndicatio ns:Primary insomnia TAKE 1 TABLET BY MOUTH AT BEDTIME NEEDED FOR SLEEP 28 tablet 09/15/20 25 Active traMADol (Ultram) 50 MG tabletIndicatio ns:Rheumatoid arthritis involving multiple sites with positive rheumatoid factor (CMS/HCC) (HCC) TAKE 1 TABLET BY MOUTH EVERY 8 HOURS NEEDED FOR DOLOR SEVERE 84 tablet 09/15/20 25 Active naproxen (Naprosyn) 500 MG tablet TAKE 1 TABLET BY MOUTH TWICE DAILY 60 tablet 09/15/20 25 Active Aspirin Low Dose 81 MG EC tabletIndicatio ns:Essential hypertension TAKE 1 TABLET BY MOUTH EVERY MORNING 90 tablet 1 09/25/20 25 Active rosuvastatin (Crestor) 20 MG tabletIndicatio ns:Type 2 diabetes mellitus without complication, without long-term current use of insulin (HCC) TAKE 1 TABLET BY MOUTH EVERY DAY 30 tablet 11 09/25/20 25 Active senna (Senokot) 8.6 MG tabletIndicatio ns:Other constipation TAKE 1 TABLET BY MOUTH AT BEDTIME 90 tablet 09/25/20 25 Active lisinopril 10 MG tabletIndicatio ns:Hypertension , unspecified type TAKE 1 TABLET BY MOUTH EVERY MORNING 90 tablet 09/25/20 25 Active lisinopril 10 MG tabletIndicatio ns:Hypertension , unspecified type Take 1 tablet (10 mg) by mouth in the morning. 30 tablet 11 07/13/20 24 2024 Discontinued(R eorder (will not trigger notification to Pharmacy)) rosuvastatin (Crestor) 20 MG tabletIndicatio ns:Type 2 diabetes mellitus without complication, without long-term current use of insulin (HCC) Take 1 tablet (20 mg) by mouth Once per day. 30 tablet 08/12/20 24 2024 Discontinued aspirin (Aspirin Low Dose) 81 MG EC tabletIndicatio ns:Essential hypertension Take 1 tablet (81 mg) by mouth in the morning. 90 tablet 1 03/16/202024 Discontinued senna (Senokot) 8.6 MG tabletIndicatio ns:Other constipation Take 1 tablet (8.6 mg) by mouth at bedtime. 90 tablet 1 03/16/20 25 2024 Discontinued naproxen (Naprosyn) 500 MG tablet Take 1 tablet (500 mg) by mouth 2 times daily. 60 tablet 07/24/20 25 2024 Discontinued traMADol (Ultram) 50 MG tabletIndicatio ns:Rheumatoid arthritis involving multiple sites with positive rheumatoid factor ([facility]/HCC) (HCC) Take 1 tablet (50 mg) by mouth every 8 (eight) hours if needed for severe pain for up to 28 days. 84 tablet 08/09/20 25 2024 Discontinued zolpidem (Ambien) 10 MG tabletIndicatio ns:Primary insomnia Take 1 tablet (10 mg) by mouth if needed at bedtime for sleep. 28 tablet 08/09/20 25 2024 Discontinued Active Problems Problem Noted [...] and tramadol I put prescription in today [facility]IEF [employer]RARIAN BRANCH appointment to be rescheduled Assessment & Plan [...] ng multiple sites with positive rheumatoid factor ([facility]) 12/19/2015 Assessment & Plan (08/09/2025 12:27 PM EDT): Patient has upcoming appointment with rheumatology I advised not to miss it I will put in a prescription for tramadol, [facility]IEF LIBRARIAN BRANCH appointment to be rescheduled Assessment & Plan [...] Encounters Date Type Department Care Team Description 09/24/2025 Refill [facility] WALK[facility]IN CENTER [address] [place] [phone] Christine Newell MD Hypertension, unspecified type 09/24/2025 Refill [facility] MEDICINE [address] [place] [phone] Rosalba Shin MD Essential hypertension; Type 2 diabetes mellitus without complication, without long-term current use of insulin ([facility]); Other constipation; Hypertension, unspecified type 09/15/2025 Refill [facility] [address] [place] [phone] Anna Mata FNP 09/15/2025 Refill [facility] MEDICINE [address] [place] [phone] Rosalba Shin MD Primary insomnia; Rheumatoid arthritis involving multiple sites with positive rheumatoid factor (CMS/HCC) (HCC) 09/04/2025 Orders Only [address] [address] Rosalba Shin MD Chronic pain of left knee (Primary Dx) 08/30/2025 9:30 AM EDT Clinical Support [address] [address] Jeannette Thomas RN Long-term current use of opiate analgesic (Primary Dx) 08/30/[address] [address] Jeannette Thomas RN [employer]RARIAN BRANCH Agreement renewed today; Patient requesting physical therapy in [place] 08/30/2025 Travel 08/09/2025 11:15 AM EDT Telemedicine [address] [address] Rosalba Shin MD Essential hypertension (Primary Dx); Rheumatoid arthritis involving multiple sites with positive rheumatoid factor ([facility]/HCC); Primary insomnia; Fibromyalgia; Shortness of breath 08/09/2025 Telephone [facility] MEDICINE [address] [place] [address] Jeannette Thomas, KARLENE Schedule [facility]CH Renewal appt 08/09/2025 Travel 08/08/2025 Telephone [facility] MEDICINE [address] [place] [phone] Rosalba Shin MD 07/26/2025 Refill [facility] MEDICINE [address] [place] [phone] Rosalba Shin MD Folliculitis; Fibromyalgia; Chronic low back pain, unspecified back pain laterality, unspecified whether sciatica present 07/24/2025 2:00 PM EDT Office Visit [facility] [address] [place] [phone] Anna Mata FNP Costochondritis (Primary Dx) 07/24/2025 Refill [facility] MEDICINE [address] [place] [phone] Rosalba Shin MD Fibromyalgia 07/24/2025 Travel 07/11/2025 2:40 PM EDT Office Visit [facility] [address] [place] [phone] Gino Browning MD Acute strain of neck muscle, initial encounter (Primary Dx); Acute neck pain 07/11/2025 Travel 07/10/2025 Refill [facility] MEDICINE [address] [place] [phone] Rosalba Shin MD Essential hypertension 07/09/2025 Refill [facility] MEDICINE [address] [place] [phone] Rosalba Shin MD Chronic low back pain, unspecified back pain laterality, unspecified whether sciatica present; Essential hypertension 07/05/2025 9:15 AM EDT Office Visit [facility] OPTOMETRY [address] [place] [address] Nolan, Lucretia, OD Presbyopia (Primary Dx) 07/05/2025 Travel 07/04/2025 Telephone [facility] MEDICINE [address] [place] [phone] Rosalba Shin MD telephone call; Needs to schedule [facility]IE[employer]RARIAN BRANCH RV appt 07/03/2025 Refill [facility] MEDICINE [address] [place] [address] Rosalba Shin MD Primary insomnia; Fibromyalgia from Last 3 Months Immunizations Immunization Administration [...] Description 11/30/2025 10:00 AM EST Clinical Support [facility] MEDICINE [address] [place] [address] Jeannette Thomas, RN Health Maintenance Due Date [...] long-term current use of insulin ([facility]) LIPID PANEL WITH REFLEX TO DIRECT LDL Routine 07/13/2024 3:15 PM EDT Type 2 diabetes mellitus without complication, without long-term current use of insulin (CMS/[facility]) Essential hypertension ALBUMIN, RANDOM URINE W/CREATININE [...] - 08/30/2025 9:44 AM EDT UTOX cup Lot#[id number] Exp. 08/22/26 Internal Pass Control Rosalba Kingsley [...] 3:15 PM EDT) Triglycerides 135 <150 mg/dL [facility] Comment:Desirable Triglyceri de: less than 150 mg/dLBorderline High Triglyceride 150-199 mg/dLHigh Triglyceride: 200-499 mg/dLVery High Triglyceride: greater than or equal to 5OO mg/dL Cholesterol 220(H) <200 mg/dL [facility] Comment:Desirable Cholestero l: less than 200 mg/dLBorderline High Cholesterol: 200-239 mg/dLHigh Cholesterol: greater than 239 mg/dL LDL Cholesterol Calculated 134(H) <100 mg/dL [facility] Comment:Desirable LDL: less than 100 mg/dLNear Optimal/Above Optimal LDL: 110- 129 mg/dLBorderline High LDL: 130-159 mg/dLHigh LDL: 160-189 mg/dLVery High LDL: greater than or equal to 190 mg/dL HDL Cholesterol 59 >40 mg/dL [facility] Comment:Desirable HDL: great er than 40 mg/dL Note: This HDL assay may give artificially low results in patients with liver disease. Blood 07/13/2024 3:15 PM EDT 07/13/2024 4:04 PM EDT us Rosalba Kingsley MD LAB BLOOD ORDERABLES Final Result [facility] [address] [place] [address] [phone] * Albumin, Random Urine W/Creatinine (07/13/2024 12:00 AM EDT) Creatinine, Urine 115.51 mg/dL [facility] Microalbumin Urine 28.0 mg/L [facility] Microalbum Creatinine Ratio Ur 24.2 <30 ug/mg cr [facility] Comment:Albumin/Creatinine R atio Reference Ranges: Normal: < 30 ug/mg creatinine Microalbuminuria: 30 - 300 ug/mg creatinineClinical Albuminuria: > 300 ug/mg creatinine Urine (Urine, Random) 07/13/2024 07/13/2024 Rosalba Kingsley MD LAB URINE ORDERABLES Final Result [facility] [address] [place] [address] [phone] * BI Mammogram Diagnostic Tomosynthesis Bilateral (02/12/2024 10:01 AM EDT) Anatomical Region Laterality Modality Breast Bilateral Mammography 02/12/2024 10:0 1 AM EDT Narrative 02/12/2024 12:05 PM EDT [facility] [address] [place] [address] Mammography Report Signed Patient: Kerline Gutierrez MR#: [id number] : 1965 Acct:[id number] Age/Sex: 58 / F ADM Date: 02/12/24 Loc: HO.MAMMO Attending Dr: Rosalba Kingsley MD Ordering Physician: Rosalba Shin MD Results: 2Benign Findings Date of Service: 02/12/24 Follow Up: 1 Year From [facility] Mammogram Procedure(s): MM tomosynthesis diagnostic BI Accession Number(s): [id number] cc: Rosalba Shin MD EXAMINATION: MM DIAGNOSTIC [...] in OV> 02/12/24 1201 DD/ 1001 TD/TT: Metal Or Wood Blocker: Procedure Note Donotuseinterpreter, Image - 02/12/2024 [facility] [address] [place] [address] Mammography Report Signed Patient: Diana Gutierrez#: [id number] : 1965Acct:[id number] Age/Sex: 58 / FADM Date: 02/12/24 Loc: HO.MAMMO Attending Dr: Rosalba Kingsley MD Ordering Physician: Rosalba Shin MDResults: 2Benign Findings Date of Service: 02/12/24Follow Up: 1 Year From Orig inal Mammogram Procedure(s): MM tomosynthesis diagnostic BI Accession Number(s): [id number] cc: Rosalba Shin MD EXAMINATION: MM DIAGNOSTIC [...] in OV> 02/12/24 1201 DD/ 1001 TD/TT: Metal Or Wood Blocker: us Rosalba Kingsley MD IMG BI PROCEDURES Arash jamaal Result - Final * Image-Guided Pap with Age-Based Screening??with CT/NG,??Trichomonas (09/22/2023 10:18 AM EST) Trichomonas (NAAT) NOT DETECTED NOT DETECTED [facility] Comment:The analytical perfo rmance characteristics of thisassay have been determined by [employer] Themodifications have not been cleared or approved bythe FDA. This assay has been validated pursuant to theCLIA regulations and is used for clinical purposes.For additional information, please refer tohttp://education.[employer]/faq/Trichomonastma(This link is being provided for information/educational purposes only.)THIS TEST WAS PERFORMED AT:[facility] [address] [phone] GARCIA MD CTNG Ref Lab NOT DETECTED NOT DETECTED [facility] NG Ref Lab NOT DETECTED NOT DETECTED [facility] 09/22/2023 10:1 8 AM EST 09/23/2023 7:30 AM EST Rosalba Kingsley MD LAB CYTOLOGY ORDERABL ES Final Result Performing Organization Address [facility] Co de Phone Number [facility] [address] [place] [address] [phone] * HPV mRNA E6/E7 w/Reflex to HPV Genotypes 16, 18/45 (09/22/2023 10:18 AM EST) HPV nRNA E6/E7 Not Detected Not Detected [facility] Comment:Methodology: Transcr iption-Mediated AmplificationThis assay detects E6/E7 viral messenger RNA (mRNA) from 14high-risk HPV types (16,18,31,33,35,39,45,51,52,56,58,59,66,68).Cervical sources are required for HPV testing.If a vaginal source from a patient who has had atotal hysterectomy with removal of cervix wassubmitted, please contact the testing laboratoryfor alternative testing options.For additional information, please refer tohttp://education.[employer]/faq/MDM203x0(This link if provided for information/educational purposes only.)THIS TEST WAS PERFORMED AT:[facility] [address] [phone] GARCIA MD HPV mRNA E6/E7 [facility] HPV 16 RNA TNP [facility] HPV 18/45 [facility] 09/22/2023 10:1 8 AM EST 09/23/2023 7:30 AM EST Rosalba Kingsley MD LAB CYTOLOGY ORDERABL ES Final Result [facility] [address] [place] [address] [phone] * Colonoscopy (06/01/2018) Colonoscopy Normal Normal Narrative Aditi Durand - 06/01/2018 Recommended 10 year follow up us Historical Provider HEALTH MAINTENANCE Final Result from Last 3 Months or Most Recently Relevant to Health Maintenance Insurance [facility] C3 DENTAL-[facility] MEDICAID STAND ADULT Care Teams Tank Terminal Gauger Relationship Specialty Start Date End Date Rosalba Shin MD [address] [place] [phone] PCP - General Family Medicine 12/26/20
--- OUTSIDE RECORDS SUMMARY | 2025-09-26 17:12 | XMS_ITS | Encounter Summary ---
Author Organization [employer] Address [address] [facility] [address] [place] [address] Care Team Providers Care Deicer Repairer Name Role Phone Rosalba Shin MD Primary Care Provide r Reason for Visit * Reason Comments Med Refill Encounter Details Date Type Department Care Team (Late st Contact Info) Description 10/22/2023 Refill [facility] [address] [place] [address] Maria L Navarro MD [address] [place] [address] Chronic low back pain, unspecified back pain [...] 11/30/2025 10:00 AM EST Clinical Support [facility] [address] [place] [address] Jeannette Thomas RN documented as of this encounter Visit Diagnoses Diagnosis Chronic low back pain, unspecified back pain laterality, unspecified whether sciatica present documented in this encounter Additional Health Concerns Assessment Noted Time PHQ-9 Depression Total Score: 7 04/06/20 23 2:10 PM EDT documented as of this encounter Care Teams Deicer Repairer Relationship Specialty Start Date End Date Rosalba Shin MD [address] [place] [address] PCP - General Family Medicine 12/26/20 documented as of this encounter
--- OUTSIDE RECORDS SUMMARY | 2025-09-26 17:12 | XMS_ITS | Encounter Summary ---
Author Organization [employer] Address [address] [place] [address] [address] [place] [address] Care Team Providers Care Electronic Equipment Repairer Name Role Phone Rosalba Shin MD Primary Care Provide r Reason for Visit * Reason Comments Med Refill Encounter Details Date Type Department Care Team (Late st Contact Info) Description 03/10/2023 Refill [facility] MED[facility] [address] [place] [phone] Name, MD Gino [address] [place] [phone] Chronic low back pain, unspecified back pain [...] [facility] [address] [place] [phone] Jeannette Thomas RN documented as of this encounter Visit Diagnoses Diagnosis Chronic low back pain, unspecified back pain laterality, unspecified whether sciatica present documented in this encounter Care Teams Electronic Equipment Repairer Relationship Specialty Start Date End Date Rosalba Shin MD [address] [place] [address] PCP - General Family Medicine 12/26/20 documented as of this encounter
[2025-09-26 18:03] LABS: Anion Gap 13 (12-20); Blood Urea Nitrogen 19 mg/dL (9-16); Calcium 9.4 mg/dL (8.4-10.2); Carbon Dioxide 28 mmol/L (22-29); Chloride 100 mmol/L (96-108); Estimated Glomerular Filt Rate > 60; Potassium 4.0 mmol/L (3.3-5.1); Sodium 137 mmol/L (135-145)
== END 2025-09-26 15:40 | disposition home or self-care (01) ==
LOC: HO.HHCL 15:39
PROVIDERS: Visit Provider Internal Medicine
DX: R07.2 Precordial pain (principal)
CPT/HCPCS: 36415; 80048

== ENCOUNTER 2025-10-09 10:34 | Outpatient (REF) | payer MEDICAID, SELFPAY ==
--- OUTSIDE RECORDS SUMMARY | 2025-10-09 15:05 | XMS_ITS | Encounter Summary ---
Author Organization [employer] Address [address] [facility] [address] [place] [address] Care Team Providers Care Aerospace Project Manager Name Role Phone Rosalba Shin MD Primary Care Provide r Reason for Visit * Reason Comments Med Refill Encounter Details Date Type Department Care Team ([facility] Contact Info) Description 03/17/[address] [facility] [address] [place] [address] [phone] Rosalba Shin MD [address] [place] [address] [phone] Primary insomnia Social History Tobacco Use Types [...] Description 11/30/2025 10:00 AM EST Clinical Support [facility] [address] [place] [address] [phone] Jeannette Thomas RN documented as of this encounter Visit Diagnoses Diagnosis Primary insomnia Persistent disorder of initiating or maintaining sleep documented in this encounter Care Teams Aerospace Project Manager Relationship Specialty Start Date End Date Rosalba Shin MD [address] [place] [phone] PCP - General Family Medicine 12/26/20 documented as of this encounter
--- OUTSIDE RECORDS SUMMARY | 2025-10-09 15:05 | XMS_ITS | Encounter Summary ---
Author Organization [employer] Address [address] [facility] [address] [place] [address] Care Team Providers Care Sewer Repairer Name Role Phone Rosalba Shin MD Primary Care Provide r Reason for Visit * Reason Comments Med Refill Encounter Details Date Type Department Care Team ([facility] st Contact Info) Description 06/08/2024 Refill [facility] [address] [place], [place] [phone] Rosalba Shin MD [address] [place] [address] Fibromyalgia Social History Tobacco Use Types Packs/Day [...] Description 11/30/2025 10:00 AM EST Clinical Support [facility] [address] [place] [address] Jeannette Thomas RN documented as of this encounter Visit Diagnoses Diagnosis Fibromyalgia Unspecified myalgia and myositis documented in this encounter Additional Health Concerns Assessment Noted Time PHQ-9 Depression Total Score: 7 04/06/20 23 2:10 PM EDT documented as of this encounter Care Teams Sewer Repairer Relationship Specialty Start Date End Date Rosalba Shin MD [address] [place] [address] PCP - General Family Medicine 12/26/20 documented as of this encounter
--- OUTSIDE RECORDS SUMMARY | 2025-10-09 15:05 | XMS_ITS | Encounter Summary ---
Author Organization [employer] Address [address] [facility] [address] [place] [address] Care Team Providers Care Stonehand Name Role Phone Rosalba Shin MD Primary Care Provide r Reason for Visit * Reason Comments Med Refill Encounter Details Date Type Department Care Team ([facility] st Contact Info) Description 10/03/2025 Refill [facility] [address] [place] [address] Rosalba Shin MD [address] [place] [address] Chronic low back pain, unspecified back pain [...] Description 11/30/2025 10:00 AM EST Clinical Support [facility] [address] [place] [address] Jeannette Thomas, KARLENE documented as of this encounter Visit Diagnoses Diagnosis Chronic low back pain, unspecified back pain laterality, unspecified whether sciatica present documented in this encounter Additional Health Concerns Assessment Noted Time PHQ-9 Depression Total Score: 0 08/09/20 25 11:01 AM EDT documented as of this encounter Care Teams Stonehand Relationship Specialty Start Date End Date Rosalba Shin MD [address] [place] [address] PCP - General Family Medicine 12/26/20 documented as of this encounter
--- OUTSIDE RECORDS SUMMARY | 2025-10-09 15:05 | XMS_ITS | Encounter Summary ---
Author Organization [employer] Address [address] [place] [address] [address] [place] [address] Care Team Providers Care Sales Compensation Analyst Name Role Phone Rosalba Shin MD Primary Care Provide r Reason for Visit * Reason Comments Med Refill Encounter Details Date Type Department Care Team (Late st Contact Info) Description 03/10/2023 Refill [facility] [address] [place] [phone] Name, MD Gino [address] [place] [phone] Chronic low back pain, unspecified back pain [...] Description 11/30/2025 10:00 AM EST Clinical Support [facility] [address] [place] [phone] Jeannette Thomas RN documented as of this encounter Visit Diagnoses Diagnosis Chronic low back pain, unspecified back pain laterality, unspecified whether sciatica present documented in this encounter Care Teams Sales Compensation Analyst Relationship Specialty Start Date End Date Rosalba Shin MD [address] [place] [address] PCP - General Family Medicine 12/26/20 documented as of this encounter
--- OUTSIDE RECORDS SUMMARY | 2025-10-09 15:05 | XMS_ITS | Clinical Summary ---
Author Organization [employer] Address [address] [facility] 7t [place] [address] Care Team Providers Care Wire Mesh Gate Assembler Name Role Phone Rosalba Shin MD [...] buttocks. 03/16/20 20 Active Deep Sea Nasal [place] 0.65 % nasal sprayIndication s:Viral pharyngitis SPRAY [...] complication, without long-term current use of insulin ([facility]) 1 each 2 times daily. 100 each 2 09/07/20 Active Blood Pressure Monitor kitIndications: Essential hypertension Use as directed 3x/week 1 kit 09/07/20 Active FREESTYLE LITE test stripIndication s:Type 2 diabetes mellitus without complication, without long-term current use of insulin ([facility]) USE DIRECTED TO TEST BLOOD SUGAR TWICE DAILY 100 strip 11 05/30/20 24 Active TRUEplus Lancets 33G miscIndications :Type 2 diabetes mellitus without complication, without long-term current use of insulin ([facility]) USE TO TEST BLOOD SUGAR TWICE DAILY 100 each 1 07/21/20 24 Active dextran 70-hypromellose (artificial tears) 0.1-0.3 % ophthalmic solutionIndicat ions:Dry eye Administer 1 drop into both eyes if needed in the morning, at noon, and at bedtime for dry eyes. 30 mL 1 11/08/20 24 Active TRUEplus Lancets 33G miscIndications :Type 2 diabetes mellitus without complication, without long-term current use of insulin ([facility]) 1 each 2 times daily. 100 each [...] 5 days. 5 tablet 07/04/20 25 Active hydroCHLOROthia zide (HYDRODiuril) 25 MG [...] TABLET BY MOUTH AT BEDTIME 90 tablet 1 09/25/20 25 Active lisinopril 10 MG tabletIndicatio ns:Hypertension , unspecified type TAKE 1 TABLET BY MOUTH EVERY MORNING 90 tablet 1 09/25/20 25 Active Diclofenac Sodium 1 % gelIndications: Chronic low back pain, unspecified back pain laterality, unspecified whether sciatica present APPLY 2 GRAMS TOPICALLY TO AFFECTED AREA(S) FOUR TIMES DAILY DIRECTED 100 g 1 10/04/20 Active lisinopril 10 MG tabletIndicatio ns:Hypertension , unspecified type Take 1 tablet (10 mg) by mouth in the morning. 30 tablet 07/13/20 24 2024 Discontinued(R eorder (will not trigger notification to Pharmacy)) rosuvastatin (Crestor) 20 MG tabletIndicatio ns:Type 2 diabetes mellitus without complication, without long-term current use of insulin (HCC) Take 1 tablet (20 mg) by mouth Once per day. 30 tablet 08/12/20 24 2024 Discontinued naloxone (Narcan) 4 mg/0.1 mL nasal sprayIndication s:Fibromyalgia Administer 1 spray (4 mg) into affected nostril(s) if needed for opioid reversal. May repeat every 2-3 minutes if needed, alternating nostrils, until medical assistance becomes available. 2 each 3 10/06/20 24 2024 aspirin (Aspirin Low Dose) 81 MG EC tabletIndicatio ns:Essential hypertension Take 1 tablet (81 mg) by mouth in the morning. 90 tablet 1 03/16/202024 Discontinued senna (Senokot) 8.6 MG tabletIndicatio ns:Other constipation Take 1 tablet (8.6 mg) by mouth at bedtime. 90 tablet 1 03/16/20 25 2024 Discontinued Diclofenac Sodium 1 % gelIndications: Chronic low back pain, unspecified back pain laterality, unspecified whether sciatica present APPLY 2 GRAMS TOPICALLY TO AFFECTED AREA(S) FOUR TIMES DAILY DIRECTED 100 g 1 07/10/20 25 2024 Discontinued naproxen (Naprosyn) 500 MG [...] needed at bedtime for sleep. 28 tablet 08/09/202024 Discontinued Active Problems Problem Noted Date Diagnosed [...] and tramadol I put prescription in today INPATIENT CARE MANAGER RN appointment to be rescheduled Assessment & Plan [...] ng multiple sites with positive rheumatoid factor ([facility]) 12/19/2015 Assessment & Plan (08/09/2025 12:27 PM EDT): Patient has upcoming appointment with rheumatology I advised not to miss it I will put in a prescription for tramadol, INPATIENT CARE MANAGER RN appointment to be rescheduled Assessment & Plan [...] Encounters Date Type Department Care Team Description 10/03/2025 Refill [facility] [address] [place] [phone] Rosalba Shin MD Chronic low back pain, unspecified back pain laterality, unspecified whether sciatica present 09/26/2025 Orders Only GENERIC EXTERNAL DATA DEPARTMENT Provider, Generic External Data 09/24/2025 Refill [facility] [address] [place] [phone] Christine Newell MD Hypertension, unspecified type 09/24/2025 Refill [facility] [address] [place] [phone] Rosalba Shin MD Essential hypertension; Type 2 diabetes mellitus without complication, without long-term current use of insulin ([facility]); Other constipation; Hypertension, unspecified type 09/15/2025 Refill [facility] [address] [place] [phone] Anna Mata FNP 09/15/2025 Refill [facility] [address] [place] [address] [phone] Rosalba Shin MD Primary insomnia; Rheumatoid arthritis involving multiple sites with positive rheumatoid factor ([facility]/HCC) (HCC) 09/04/2025 Orders Only [facility] [address] [place] [phone] Rosalba Shin MD Chronic pain of left knee (Primary Dx) 08/30/2025 9:30 AM EDT Clinical Support [facility] [address] [place] [phone] Jeannette Thomas RN Long-term current use of opiate analgesic (Primary Dx) 08/30/2025 Telephone [facility] [address] [place] [phone] Jeannette Thomas, KARLENE INPATIENT CARE MANAGER RN Agreement renewed today; Patient requesting physical therapy in [place] 08/30/2025 Travel 08/09/2025 11:15 AM EDT Telemedicine [facility] [address] [place] [phone] Rosalba Shin MD Essential hypertension (Primary Dx); Rheumatoid arthritis involving multiple sites with positive rheumatoid factor ([facility]); Primary insomnia; Fibromyalgia; Shortness of breath 08/09/2025 Telephone [facility] [address] [place] [phone] Jeannette Thomas RN Schedule INPATIENT CARE MANAGER RN Renewal appt 08/09/2025 Travel 08/08/2025 Telephone [facility] [address] [place] [phone] Rosalba Shin MD 07/26/2025 Refill [facility] [address] [place] [phone] Rosalba Shin MD Folliculitis; Fibromyalgia; Chronic low back pain, unspecified back pain laterality, unspecified whether sciatica present 07/24/2025 2:00 PM EDT Office Visit [facility] [address] [place] [phone] Anna Mata FNP Costochondritis (Primary Dx) 07/24/2025 Refill [facility] [address] [place] [phone] Rosalba Shin MD Fibromyalgia 07/24/2025 Travel 07/11/2025 2:40 PM EDT Office Visit [facility] [address] [place] [phone] Gino Browning MD Acute strain of neck muscle, initial encounter (Primary Dx); Acute neck pain 07/11/2025 Travel 07/10/2025 Refill [facility] [address] [place] [phone] Rosalba Shin MD Essential hypertension 07/09/2025 Refill [facility] [address] [place] [phone] Rosalba Shin MD Chronic low back pain, unspecified back pain laterality, unspecified whether sciatica present; Essential hypertension from Last 3 Months Immunizations Immunization Administration [...] Description 11/30/2025 10:00 AM EST Clinical Support [address] [phone] Jeannette Thomas, RN Health Maintenance Due Date Last Done Comments CT Colonography 1966 Dental Prophylaxis 1966 FIT DNA/Cologuard 1966 FIT 1966 FOBT 1966 HIV Screening 1965 Sigmoidoscopy 1966 Diabetes: Foot Exam 1976 Hepatitis C Screening 1984 RSV Patients and Patients Aged 60 years or older (1 - Risk 50-74 years 1-dose series) 2016 DTaP/Tdap/Td Vaccines (2 - Td or Tdap) 03/24/2023 03/24/2013, 12/26/2005 Dental Oral Exam 09/04/2024 03/04/2024 Mammogram 02/11/2025 02/12/2024, 01/15, 02/12/2024, Additional history exists Dental X-Ray: Bitewings 03/05/2025 03/04/2024 Diabetes: Urine Protein Screening 07/13/2025 07/13/2024, 08/11/2023, 10/18/2020 Lipid Panel 07/13/2025 07/13/2024, 03/17, 07/16/2021, Additional history exists COVID-19 Vaccine ( season) 2025 08/12/2024, 08/13/2023, 09/17/2022, Additional history exists Influenza Vaccine (#1) 2025 , 08/13/2023, 08/28/2022, Additional history exists Diabetes: Hemoglobin A1C 09/16/2025 025, 07/04/2024, 02/09/2024, Additional history exists SDOH Screening 03/09/2026 03/09/2025 Disability Screening 03/24/2026 03/24/2025 Tobacco Screening 07/11/2026 07/11/2025 Alcohol/Substance Use Screening 08/09/2026 08/09/2025 Depression Screening 08/09/2026 08/09/2025, 08/09/20 25 Eye Exam 05/25/2027 05/25/2025, 05/16, 05/25/2025, Additional history exists Dental X-Ray: Full Mouth 12/27/2027 12/26/2024, 02/14 Colonoscopy 06/01/2028 06/01/2018 Colorectal Cancer Screening 06/01/2028 Cervical Cancer Screening 09/22/2028 HPV/Cotest 09/22/2028 09/22/2023 Pap Smear 09/22/2028 09/22/2023, 09/22/2023 Hepatitis B Vaccines Completed 02/18/2017, 12/19/2015, 04/24/2014 Zoster Vaccines Completed 05/26/2022, 09/18/2020 Pneumococcal Vaccine: 50+ Years Completed 02/09/2024, 04/04/2009, 10/12/2001 HIB Vaccines Aged Out No longer eligi [...] Associated Diagnosis Comments BASIC METABOLIC PANEL Routine 09/26/2025 1:45 PM EST POCT JUVE-14 URINE DRUG SCREEN Routine 08/30/2025 9:44 AM EDT Long-term current use of opiate analgesic POCT GLYCATED HEMOGLOBIN, TOTAL Routine 03/16/2025 1:53 PM EDT Type 2 diabetes mellitus without complication, without long-term current use of insulin ([facility]/HCC) LIPID PANEL WITH REFLEX TO DIRECT LDL Routine 07/13/2024 3:15 PM EDT Type 2 diabetes mellitus without complication, without long-term current use of insulin ([facility]/HCC) Essential hypertension ALBUMIN, RANDOM URINE W/CREATININE Routine 07/13/2024 12:00 AM EDT Type 2 diabetes mellitus without complication, without long-term current use of insulin ([facility]) INTRAORAL - COMPLETE SERIES OF RADIOGRAPHIC IMAGES [...] Maintenance Results * (ABNORMAL) Basic Metabolic Panel (09/26/2025 1:45 PM EST) Sodium 137 135 - 145 mmol/L [facility] Potassium 4.0 3.3 - 5.1 mmol/L [facility] Chloride 100 96 - 108 mmol/L [facility] Carbon Dioxide 28 22 - 29 mmol/L [facility] Anion Gap 13 12 - 20 [facility] Urea Nitrogen (BUN) 19(H) 9 - 16 mg/dL [facility] Creatinine, Serum 0.72 0.5 - 1.4 mg/dL [facility] Estimated Glomerular Filt Rate >60 [facility] Comment:Chronic Kidney Disea se: Estimated GFR < 60 mL/min/1.09j1Jwpecg Kidney Disease: Estimated GFR < 15 mL/min/1.73m2 Glucose 223(H) 60 - 115 mg/dL [facility] Calcium 9.4 8.4 - 10.2 mg/dL [facility] 09/26/2025 1:45 PM EST 09/26/2025 5:30 PM EST us Generic External Data Provider LAB BLOOD ORDERAB LES Final Result [facility] [address] [place] [address] [phone] * (ABNORMAL) POCT JUVE-14 Urine Drug Screen [...] procedure / Unknown 08/30/2025 9:44 AM EDT Narrative Jeannette Thomas RN - 08/30/2025 9:44 AM EDT UTOX cup Lot#[id number] Exp. 08/22/26 Internal Pass Control Rosalba Kingsley [...] 3:15 PM EDT) Triglycerides 135 <150 mg/dL [facility] Comment:Desirable Triglyceri de: less than [...] 190 mg/dL HDL Cholesterol 59 >40 mg/dL [facility] Comment:Desirable HDL: great er than 40 mg/dL Note: This HDL assay may give artificially low results in patients with liver disease. Blood 07/13/2024 3:15 PM EDT 07/13/2024 4:04 PM EDT us Rosalba Kingsley MD LAB BLOOD ORDERABLES Final Result Performing Organization Address City/[facility]/ZIP Co de Phone Number [facility] [address] [place] [phone] * Albumin, Random Urine W/Creatinine (07/13/2024 12:00 AM EDT) Creatinine, Urine 115.51 mg/dL [facility] Microalbumin Urine 28.0 mg/L [facility] Microalbum Creatinine Ratio Ur 24.2 <30 ug/mg cr [facility] Comment:Albumin/Creatinine R atio Reference Ranges: Normal: < 30 ug/mg creatinine Microalbuminuria: 30 - 300 ug/mg creatinineClinical Albuminuria: > 300 ug/mg creatinine Urine (Urine, Random) 07/13/2024 07/13/2024 us Rosalba Kingsley MD LAB URINE ORDERABLES Final Result [facility] [address] [place] [phone] * BI Mammogram Diagnostic Tomosynthesis Bilateral (02/12/2024 10:01 AM EDT) Anatomical Region Laterality Modality Breast Bilateral Mammography 02/12/2024 10:0 1 AM EDT Narrative 02/12/2024 12:05 PM EDT [facility] [address] [place] [address] Mammography Report Signed Patient: Kerilne Gutierrez MR#: [id number] : 1965 Acct:[id number] Age/Sex: 58 / F ADM Date: 02/12/24 Loc: HO.MAMMO Attending Dr: Rosalba Kingsley MD Ordering Physician: Rosalba Shin MD Results: 2Benign Findings Date of Service: 02/12/24 Follow Up: 1 Year From Orig inal Mammogram Procedure(s): MM tomosynthesis diagnostic BI Accession Number(s): [id number] cc: Rosalba Shin MD EXAMINATION: MM DIAGNOSTIC [...] in OV> 02/12/24 1201 DD/ 1001 TD/TT: Lens Examiner: Procedure Note Donotuseinterpreter, Image - 02/12/2024 [facility] [address] [place] [address] Mammography Report Signed Patient: Diana Gutierrez#: [id number] : 1965Acct:[id number] Age/Sex: 58 / FADM Date: 02/12/24 Loc: HO.MAMMO Attending Dr: Rosalba Kingsley MD Ordering Physician: Barciona Kingsley,Rosalba MDResults: 2Benign Findings Date of Service: 02/12/24Follow Up: 1 Year From Orig inal Mammogram Procedure(s): MM tomosynthesis diagnostic BI Accession Number(s): [id number] cc: Rosalba Shin MD EXAMINATION: MM DIAGNOSTIC [...] in OV> 02/12/24 1201 DD/ 1001 TD/TT: Lens Examiner: us Rosalba Kingsley MD IMG BI PROCEDURES Arash jamaal Result - Final * Image-Guided Pap with Age-Based Screening??with CT/NG,??Trichomonas (09/22/2023 10:18 AM EST) Trichomonas (NAAT) NOT DETECTED NOT DETECTED [facility] Comment:The analytical perfo rmance characteristics of thisassay have been determined by [employer]. Themodifications have not been cleared or approved bythe FDA. This assay has been validated pursuant to theCLIA regulations and is used for clinical purposes.For additional information, please refer tohttp://education.[employer]/faq/Trichomonastma(This link is being provided for information/educational purposes only.)THIS TEST WAS PERFORMED AT:[facility] [place] [phone] GARCIA MD CTNG Ref Lab NOT DETECTED NOT DETECTED [facility] NG Ref Lab NOT DETECTED NOT DETECTED [facility] 09/22/2023 10:1 8 AM EST 09/23/2023 7:30 AM EST us Rosalba Kingsley MD LAB CYTOLOGY ORDERABL ES Final Result [facility] [address] [place] [address] [phone] * HPV mRNA E6/E7 w/Reflex to [...] alternative testing options.For additional information, please refer tohttp://education.[employer]/faq/UMP916e1(This link if provided for information/educational purposes only.)THIS TEST WAS PERFORMED AT:[facility] [place] [phone] GARCIA MD HPV mRNA E6/E7 [facility] HPV 16 RNA [facility] HPV 18/45 RNA [facility] 09/22/2023 10:1 8 AM EST 09/23/2023 7:30 AM EST Rosalba Kingsley MD LAB CYTOLOGY ORDERABL ES Final Result Performing Organization Address City/[facility]/ZIP Co de Phone Number [facility] [address] [place] [phone] * Hm Colonoscopy (06/01/2018) Colonoscopy Normal Normal Narrative Aditi Durand - 06/01/2018 Recommended 10 year follow up Historical Provider HEALTH MAINTENANCE Final Result from Last 3 Months or Most Recently Relevant to Health Maintenance Insurance [facility] MEDICAID STAND ADULT Care Teams Wire Mesh Gate Assembler Relationship Specialty Start Date End Date Rosalba Shin MD [address] [place] [address] PCP - General Family Medicine 12/26/20
--- OUTSIDE RECORDS SUMMARY | 2025-10-09 15:05 | XMS_ITS | Encounter Summary ---
Author Organization [employer] Address [address] [facility] 7t [place] [address] Care Team Providers Care Nurse Wound Name Role Phone Rosalba Shin MD Primary Care Provide r Reason for Visit * Reason Comments Med Refill Encounter Details Date Type Department Care Team ([facility] st Contact Info) Description 03/16/2025 Refill [facility] [address] [place] [phone] Rosalba Shin MD [address] [place] [address] Fibromyalgia; Primary insomnia; Rash; Essential hypertension; Other [...] Description 11/30/2025 10:00 AM EST Clinical Support [facility] [address] [place] [address] Jeannette Thomas RN documented as of this [...] documented as of this encounter Care Teams Nurse Wound Relationship Specialty Start Date End Date Rosalba Shin MD [address] [place] [address] PCP - General Family Medicine 12/26/20 documented as of this encounter
--- OUTSIDE RECORDS SUMMARY | 2025-10-09 15:05 | XMS_ITS | Encounter Summary ---
Author Organization [employer] Address [address] [facility] 7t [place] [address] Care Team Providers Care College Scouting Coordinator Name Role Phone Rosalba Shin MD Primary Care Provide r Reason for Visit * Reason Comments Med Refill Encounter Details Date Type Department Care Team ([facility] st Contact Info) Description 12/02/2024 Refill [facility] [address] [place], [place] [phone] Name, MD Gino [address] [place] [address] Social History Tobacco Use Types Packs/Day Years [...] Description 11/30/2025 10:00 AM EST Clinical Support [facility] [address] [place] [address] Jeannette Thomas RN documented as of this encounter Visit Diagnoses Not on filedocumented in this encounter Additional Health Concerns Assessment Noted Time PHQ-9 Depression Total Score: 0 08/12/20 24 11:42 AM EDT documented as of this encounter Care Teams College Scouting Coordinator Relationship Specialty Start Date End Date Rosalba Shin MD [address] [place] [address] PCP - General Family Medicine 12/26/20 documented as of this encounter
--- OUTSIDE RECORDS SUMMARY | 2025-10-09 15:05 | XMS_ITS | Encounter Summary ---
Author Organization [employer] Address [address] [facility] 7t [place] [address] Care Team Providers Care Glass Carrier Name Role Phone Rosalba Shin MD Primary Care Provide r Reason for Visit * Reason Comments Med Refill Encounter Details Date Type Department Care Team ([facility] st Contact Info) Description 04/03/2025 Refill [facility] [address] [place], [place] [phone] Rosalba Shin MD [address] [place] [address] Fibromyalgia Social History Tobacco Use Types Packs/Day [...] Support [facility] [address] [place] [address] Jeannette Thomas, KARLENE documented as of this encounter Visit Diagnoses Diagnosis Fibromyalgia Unspecified myalgia and myositis documented in this encounter Additional Health Concerns Assessment Noted Time PHQ-9 Depression Total Score: 0 08/12/20 24 11:42 AM EDT documented as of this encounter Care Teams Glass Carrier Relationship Specialty Start Date End Date Rosalba Shin MD [address] [place] [address] PCP - General Family Medicine 12/26/20 documented as of this encounter
--- OUTSIDE RECORDS SUMMARY | 2025-10-09 15:05 | XMS_ITS | Encounter Summary ---
Author Organization [employer] Address [address] [facility] 7t [place] [address] Care Team Providers Care Grout Machine Tender Name Role Phone Rosalba Shin MD Primary Care Provide r Reason for Visit * Reason Comments Med Refill Encounter Details Date Type Department Care Team (Late st Contact Info) Description 12/02/2024 Refill [facility] [address] [place], [place] [phone] Ofelia Wright, ANP [address] [place] [address] Type 2 diabetes mellitus without complication, without long-term current use of insulin ([facility]) Social History Tobacco Use Types Packs/Day [...] EST Clinical Support [facility] [address] [place] [address] Jeannette Thomas, KARLENE documented as of this encounter Visit Diagnoses Diagnosis Type 2 diabetes mellitus without complication, without long-term current use of insulin (HCC) documented in this encounter Additional Health Concerns Assessment Noted Time PHQ-9 Depression Total Score: 0 08/12/20 24 11:42 AM EDT documented as of this encounter Care Teams Grout Machine Tender Relationship Specialty Start Date End Date Rosalba Shin MD [address] [place] [address] PCP - General Family Medicine 12/26/20 documented as of this encounter
--- OUTSIDE RECORDS SUMMARY | 2025-10-09 15:05 | XMS_ITS | Encounter Summary ---
Author Organization [employer] Address [address] [facility] 7t [place] [address] Care Team Providers Care Linux Unix Engineer Name Role Phone Rosalba Shin MD Primary Care Provide r Reason for Visit * Reason Comments Med Refill Encounter Details Date Type Department Care Team (Late st Contact Info) Description 10/22/2023 Refill [facility] [address] [place] [address] Maria L Navarro MD [address] [place] [address] Chronic low back pain, unspecified back pain [...] Description 11/30/2025 10:00 AM EST Clinical Support [facility] [address] [place] [address] Jeannette Thomas RN documented as of this encounter Visit Diagnoses Diagnosis Chronic low back pain, unspecified back pain laterality, unspecified whether sciatica present documented in this encounter Additional Health Concerns Assessment Noted Time PHQ-9 Depression Total Score: 7 04/06/20 23 2:10 PM EDT documented as of this encounter Care Teams Linux Unix Engineer Relationship Specialty Start Date End Date Rosalba Shin MD [address] [place] [address] PCP - General Family Medicine 12/26/20 documented as of this encounter
--- OUTSIDE RECORDS SUMMARY | 2025-10-09 15:05 | XMS_ITS | Encounter Summary ---
Author Organization [employer] Address [address] [facility] 7t [place] [address] Care Team Providers Care Security Alarm Technician Name Role Phone Rosalba Shin MD Primary Care Provide r Encounter Details Date Type Department Care Team ([facility] st Contact Info) Description 08/26/2023 Abstract [facility] [address] [place], [place] [phone] Rosalba Shin MD [address] [place], [place] [phone] Social History Tobacco Use Types Packs/Day Years [...] t he electric, gas, oil or water [employer] threatened to shut off services in your [...] Description 11/30/2025 10:00 AM EST Clinical Support [facility] [address] [place] [address] Jeannette Thomas RN documented as of this [...] documented as of this encounter Care Teams Security Alarm Technician Relationship Specialty Start Date End Date Rosalba Shin MD [address] [place] [address] PCP - General Family Medicine 12/26/20 documented as of this encounter
[2025-10-09 18:23] LABS: MANUAL DIFF FLAG NO
[2025-10-09 18:38] LABS: Hematocrit 39.8 % (37.0-47.0); Hemoglobin 13.2 g/dl (12.0-16.0); Imm Gran Abs Auto 0.01 X10*3/uL (0.00-0.03); Imm Gran Pct Auto 0.2 % (0.0-0.4); Lymphocytes Absolute Auto 2.3 X10*3/uL (1.2-4.9); Mean Corpuscular HGB Conc 33.2 g/dl (31.0-35.0); Mean Corpuscular Hemoglobin 29.5 pg (27.0-33.0); Mean Corpuscular Volume 89.0 fL (80.0-98.0); NRBC Abs Auto 0.000 X10*3/uL (0.0-0.012); NRBC Pct Auto 0.0 /100WBC (0.0-0.2); Platelet Count 255 X10*3/uL (160-400); Red Blood Count 4.47 X10*6/uL (4.20-5.50); White Blood Count 5.1 X10*3/uL (4.8-10.8)
[2025-10-09 19:02] LABS: Alanine Aminotransferase 20 U/L (0-31); Aspartate Amino Transferase 34 U/L (5-31); Estimated Glomerular Filt Rate > 60
[2025-10-09 19:35] LABS: Erythrocyte Sedimentation Rate 30 MM/HR (0-20)
== END 2025-10-09 10:35 | disposition home or self-care (01) ==
LOC: HO.HKASLDS 10:34
PROVIDERS: PCP Internal Medicine; Visit Provider Student in an Organized Health Care Education/Training Program
DX: M05.741 Rheumatoid arthritis with rheumatoid factor of right hand without organ or systems involvement (principal); M05.742 Rheumatoid arthritis with rheumatoid factor of left hand without organ or systems involvement; M25.562 Pain in left knee; M54.16 Radiculopathy, lumbar region; R76.0 Raised antibody titer; G89.29 Other chronic pain; Z79.60 Long term (current) use of unspecified immunomodulators and immunosuppressants
CPT/HCPCS: 36415; 82565; 84450; 84460; 85025; 85652; 86140; 86200; 86431; 99202

== ENCOUNTER 2025-10-09 10:34 | Outpatient (AMB) | payer MEDICAID, SELFPAY ==
[2025-10-09 10:38] VITALS: BP 122/68; PULSE 81; O2SAT 98; BMI 35.3
--- NOTE | 2025-10-09 10:38 | A.OFFVIS_ITS ---
Vital Signs 10/09/25 10:38 Height 5 ft 5 in Weight 212 lb BMI 35.3 BP 122/68 Blood Pressure Location Lt brachial Position Sitting Pulse 81 Pulse Source Pulse Oximeter Pulse Oximetry (%) 98 Oxygen Delivery Method Room Air Intake Visit Reasons: RA/ New Patient Intake Note: Patient is a new patient, presents for RA. She was internally referred by Dr. Kemp from Pulmonology. Operating Theatre Technician Required: Yes Operating Theatre Technician Language: Regional Tanker Truck Driver Services: Operating Theatre Technician Present Operating Theatre Technician Name: Keshia Lomeli Accompanied by: Self / Same As Patient Allergies No Known Allergies (No Known Allergies*) Allergy (Verified 10/09/25 10:45) HPI Comments Details: 59-year-old female with a history of seropositive RA, not on any DMARD for many years with stable disease activity, osteoarthritis and carpal tunnel syndrome presenting to me as a new patient. She has been a patient at the Rheumatology practice. She states she is seeing hand surgeon for carpal tunnel release surgery in october 2025 she saw orthopedic for her left knee and does not want surgery yet or steroid shots She reports ongoing joint pain particularly in the since wrists shoulders lower back and bilateral knees. She has not noticed any active synovitis. Her morning stiffness lasts for 2-3 hours but it is off of methotrexate for many years. She is currently on pain medications like tramadol, naproxen and cyclobenzaprine. She states she had a blood clot in the left leg in 1985 during her 3nd and took heparin for 18 days and one miscarriage with two live healthy births . NO blood clot after that no skin rash, no oral ulcers, no photosensitivity, no raynauds phenomenon On imaging Knee MRI from April of this year shows tricompartmental osteoarthritis with associated articular cartilage loss, medial and lateral meniscal tearing, knee joint effusion Quintero's cyst Bilateral hand x-ray in 2022 shows mild loss of PIPJ IP joint spaces no bony erosive changes seen. Lumbar spine x-ray shows mild anterior wedge deformity T12 and T11 of vertebra of indeterminate age, mild endplate spondylosis at multiple disc levels. Vital signs reviewed Physical Examination CONSTITUITIONAL Patient alert and cooperative. Well appearing and in no apparent painful distress HEENT Conjunctiva and sclera clear. No lymphadenopathy. CHEST/RESPIRATORY SYSTEM Normal respiratory effort and able to speak in complete sentences. Clear to auscultation bilaterally. No crackles, rales, rhonchi, wheezes heard. CARDIAC SYSTEM Regular rate and rhythm. S1 and S2 heard no murmurs. Radial pulses intact bilaterally MSK Hands * Right Hand: Able to make a fist. No swelling or tenderness to palpation of the MCPs, PIPs or DIPs. No deformities noted. * Left Hand: Able to make a fist. No swelling or tenderness to palpation of the MCPs, PIPs or DIPs. No deformities noted. Wrists * Right Wrist: Full ROM to flexion and extension. No swelling or TTP * Left Wrist: Full ROM to flexion and extension. No swelling or TTP Elbows * Right Elbow: Full ROM. No swelling or TTP. No TTP of the medial epicondyle. No TTP of the lateral epicondyle * Left Elbow: Full ROM. No swelling or TTP. No TTP of the medial epicondyle. No TTP of the lateral epicondyle Shoulders * Right shoulder: Full ROM. No swelling noted. No TTP of the AC joint. No TTP of the subacromial bursa. No TTP of the posterior shoulder * Left shoulder: Full ROM. No swelling noted. No TTP of the AC joint. No TTP of the subacromial bursa. No TTP of the posterior shoulder Hips * Right hip: Limited ROM. No pain elicited with hip flexion/internal rotation/external rotation * Left hip: Limited ROM. No pain elicited with hip flexion/internal rotation/external rotation Hip bursa: No tenderness to palpation bilaterally Knees * Right knee: Limited range of motion, crepitus noted * Left knee:Limited range of motion, crepitus noted Ankles * Right ankle: Good ankle dorsiflexion and plantar flexion. No swelling. No TTP of the ankle joint * Left ankle: Good ankle dorsiflexion and plantar flexion. No swelling. No TTP of the ankle joint Feet * Right foot: Negative squeeze test * Left foot: Negative squeeze test SKIN No rashes PFSH Medical History (Updated 10/09/25 @ 11:53 by Dora Gonzales MD) Breast pain Fibromyalgia Anxiety and depression Bilateral carpal tunnel syndrome Type 2 diabetes mellitus Essential hypertension Sjogren's syndrome Rheumatoid arthritis involving multiple sites with positive rheumatoid factor Acquired hypothyroidism Cervical radiculopathy Lumbar radiculopathy Asthma Surgical History H/O gastric bypass Hx of cataract extraction No history of previous surgery Family History Mother Arthritis Father No problems noted. Other Medical history unknown Social History Household Members: None Alcohol intake: never Patient Tobacco Use Status: Never used Tobacco Current occupational status: disabled Physical Exam Vital Signs: Last Vital Signs Pulse 81 10/09/25 10:38 BP 122/68 10/09/25 10:38 Pulse Ox 98 10/09/25 10:38 Oxygen Delivery Method Room Air 10/09/25 10:38 BMI result Body Mass Index 35.3 Assessment & Plan Assessment & Plan (1) Rheumatoid arthritis: Code(s): M06.9 - Rheumatoid arthritis, unspecified Category: Medical Qualifiers: Rheumatoid factor presence: with rheumatoid factor Laterality: bilateral Rheumatoid arthritis location: hand Qualified Code(s): M05.741 - Rheumatoid arthritis with rheumatoid factor of right hand without organ or systems involvement; M05.742 - Rheumatoid arthritis with rheumatoid factor of left hand without organ or systems involvement (2) Left knee pain: Code(s): M25.562 - Pain in left knee Category: Medical Qualifiers: Chronicity: chronic Qualified Code(s): M25.562 - Pain in left knee; G89.29 - Other chronic pain (3) Lumbar radiculopathy: Code(s): M54.16 - Radiculopathy, lumbar region Category: Medical Plan Patient presents for follow-up of seropositive rheumatoid arthritis, bilateral carpal tunnel syndrome and chronic left knee pain. For her bilateral carpal tunnel syndrome, she is following hand surgeon and she is scheduled to have bilateral carpal tunnel surgery in October For her left knee pain she is currently following orthopedics for that, is not interested in injections or surgery at the moment/. I offered her physical therapy but she is not interested. For her seropositive rheumatoid arthritis, I will repeat lab work including RF, CCP, ESR CRP, CBC and CMP. I will also repeat imaging including bilateral hand x-rays and wrist x-rays. I will also do a cervical spine x-ray given her anti cipation for surgery and to assess RA involvement of the cervical spine. Once patient is done with surgery and has healed adequately, we will discuss the results of her blood work and the need for the re-initiation of methotrexate at that time. We will discuss further management and plan at the time of follow-up in 2 months STEEL TURNER WAS USED THROUGHOUT THE ENCOUNTER Orders: Orders XR Hand Tr 2V Today M06.9 - Rheumatoid arthritis, unspecified, M25.562 - Pain in left knee Rheumatoid Factor Today R76.0 - Raised antibody titer Alanine Aminotransferase Today R76.0 - Raised antibody titer Creatinine Today R76.0 - Raised antibody titer Complete Blood Count Auto Diff Today R76.0 - Raised antibody titer XR Wrist Tr 2V Today M06.9 - Rheumatoid arthritis, unspecified, M25.562 - Pain in left knee C Reactive Protein Today Z79.60 - nursing home (current) use of unspecified immunomodulators and immunosuppressants Erythrocyte Sedimentation Rate Today Z79.60 - nursing home (current) use of unspecified immunomodulators and immunosuppressants Cyclic Citrullinated Peptide Today R76.0 - Raised antibody titer Aspartate Amino Transferase Today R76.0 - Raised antibody titer XR cervical spine 2V Today M54.16 - Radiculopathy, lumbar region Coding Level of Care Code New Pt Level 4 (24432) Diagnoses Rheumatoid arthritis involving both hands with positive rheumatoid factor M05.741; M05.742 Rheumatoid factor presence: with rheumatoid factor Laterality: bilateral Rheumatoid arthritis location: hand Chronic pain of left knee M25.562; G89.29 Chronicity: chronic Lumbar radiculopathy M54.16
== END 2025-10-09 11:26 | disposition home or self-care (01) ==
LOC: HO.RHES 10:35
PROVIDERS: PCP Internal Medicine; Visit Provider Student in an Organized Health Care Education/Training Program
DX: M05.741 Rheumatoid arthritis with rheumatoid factor of right hand without organ or systems involvement (principal); M05.742 Rheumatoid arthritis with rheumatoid factor of left hand without organ or systems involvement; M25.562 Pain in left knee; G89.29 Other chronic pain; M54.16 Radiculopathy, lumbar region
CPT/HCPCS: 99204